=== PATIENT | female | born 1970 | race Caucasian/White ===

== ENCOUNTER 2016-11-30 19:25 | Emergency (ER) | payer SELFPAY ==
[~2016-11-30] VITALS: Ht 149.9 cm; Wt 46.3 kg
[~2016-11-30 19:25] MED LIST: ACHD5005 PO; ALPR.25T PO; ALPR0.25 PO; AMIT25TA9; ARIP2TAB3 PO; ASP81TEC PO; ASPI-266 PO; ASPI-892; ATOR10TA PO; ATOR10TA66 PO; BACL10TA PO; CLPD75T PO; DOXY100T2 PO; DULO60CA6 PO; FERR-57 PO; FLUO20CA42 PO; GABA100T PO; HDR4T PO; HYDR-229 PO; HYDR-2890 PO; HYDR-34 PO; HYDR-700 PO; HYDR1TAB PO; ISM30TCR PO; ISOS30TA7; LOVA40TA2; MEDRIN; MELO-198 PO; METH4TAB PO; METO-351 PO; METR500T PO; MTP25TSR PO; OMG1KC PO; ONDA8TAB9 PO; PNT40TEC PO; PREG300C PO; PREG50C PO; RANI150C11 PO; RANO10003 PO; ROSU20TA14 PO; ROSU40TA PO; SERT50TA PO; SMV20T PO; ZOLOFT
[2016-11-30] MEDS ORDERED: VILA1TAB2 PO (19:41)
[2016-11-30] MEDS ORDERED: BENZONATATE 100 MG (TESSALON) CAPSULE PO ONE (21:00)
--- NOTE | 2016-11-30 21:37 | Diagnostic Imaging Report ---
EXAM: AP and lateral chest at 9:20 P.m. INDICATION: Cough. FINDINGS: The heart size is within normal limits and stable when compared to 03/25/16. The lungs are clear. There is no evidence for pneumonia or for a pleural effusion. There is no sign of failure. The mediastinum is not widened. The osseous structures are intact. IMPRESSION: There is no evidence for active disease. Overall, there has been no adverse change since the prior exam. Dictated by: Dictated on workstation # [id number]
[2016-11-30] MEDS ORDERED: BENZ200C51 PO (21:42)
--- NOTE | 2016-11-30 21:42 | ED General ---
General Chief Complaint: Cough/Cold/Flu Symptoms Stated Complaint: EYE PAIN/HEADACHE/BODY ACHES/COUGH Nursing Triage Note: cough/congestion/body aches x10 days. Nursing Sepsis Screen: No Definite Risk Source of Information: Patient Exam Limitations: No Limitations History of Present Illness Time Seen by Provider: 19:51 Initial Comments This patient presents to the emergency room with complaints of flulike syndrome for more than a week with symptoms that included myalgia, headache, wheezing, eye irritation, "terrible cough", and chills. She denies fever, nausea, or vomiting. She has been taking Clare-Bruin plus and Mucinex without relief. She continues to smoke despite these problems and history of coronary artery disease. Allergies and Home Medications Allergies Uncoded Allergies: STEROIDS (Adverse Reaction, Intermediate, UNCONTROLLED BODY MOVEMENTS, ) Home Medications Benzonatate 200 Mg Capsule #20 200 MG PO TID Prescribed by: BREANA LOMAS on 11/30/162141 Vilazodone Hydrochloride 1 Each Tab.ds.pk 1 EACH PO UD (Reported) Constitutional: see HPI EENTM: see HPI Respiratory: see HPI Cardiovascular: no symptoms reported Gastrointestinal: no symptoms reported Genitourinary: no symptoms reported : No Musculoskeletal: see HPI Skin: no symptoms reported Psychiatric/Neurological: See HPI Hematologic/Lymphatic: No Symptoms Reported Past Wbvgkrh-Lhsirs-Xahvjw Hx Patient Social History Alcohol Use: Denies Use Recreational Drug Use: No Drug of Choice: Pot Smoking Status: Current Everyday Smoker Type Used: Cigarettes Recent Foreign Travel: No Contact w/Someone Who Travel: No Recent Infectious Disease Expo: No Recent Hopitalizations: No Physical Abuse Screen: No Sexual Abuse: No Immunizations Up To Date Tetanus Booster (TDap): Unknown PED Vaccines UTD: Yes Date of Pneumonia Vaccine: Jul 24, 2014 Date of Influenza Vaccine: Dec 02, 2013 Seasonal Allergies Seasonal Allergies: Yes Surgeries HX Surgeries: Yes (R ARM, C-SECTIONS X4, BACK SURGERY;CARDIAC CATH X 4/ STENTS X 2) Surgeries: Cardiac, Section, Coronary Stent, Gallbladder, Orthopedic, Tubal Ligation Respiratory Hx Respiratory Disorders: No Cardiovascular Hx Cardiac Disorders: Yes (stents placed) Cardiac Disorders: Coronary Artery Disease, High Cholesterol, Hypertension Neurological Hx Neurological Disorders: Yes Neurological Disorders: Headaches /Migraines, Neuropathy Reproductive System : No Hx Reproductive Disorders: No Sexually Transmitted Disease: No HIV/AIDS: No Female Reproductive Disorders: Pelvic Inflammatory Dis, Ovarian Cyst 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 Genitourinary Hx Genitourinary Disorders: No Gastrointestinal Hx Gastrointestinal Disorders: Yes Gastrointestinal Disorders: Gastroesophageal Reflux, Ulcer, Gall Bladder Disease Musculoskeletal Hx Musculoskeletal Disorders: Yes (PREVIOUS BACK SURGERY; BACK PAIN/LEG PAIN/ ARM PAIN) Musculoskeletal Disorders: Degenerate Disk Disease, Arthritis, Chronic Back Pain Endocrine Hx Endocrine Disorders: No HEENT HX ENT Disorders: No Loss of Vision: Denies Hearing Impairment: Denies Cancer Hx Cancer: No Psychosocial Hx Psychiatric Problems: Yes Behavioral Health Disorders: Anxiety, Suicide Attempts, Depression Integumentary HX Skin/Integumentary Disorder: No Blood Transfusions Hx Blood Disorders: No Adverse Reaction to a Blood Tr: No Family Medical History Family Medial History: Cancer 19 FATHER (Lung Cancer) Congestive heart failure 19 MOTHER G8 BROTHER Family history: Alzheimer's disease 19 FATHER (Uncle on fathers side) Family history: Cardiovascular disease Family history: Diabetes mellitus 19 MOTHER Family history: Hypertension 19 MOTHER G8 BROTHER Heart disease 19 FATHER (paternal grandfather) 19 MOTHER G8 BROTHER Myocardial infarction 19 FATHER (paternal grandfather) 19 MOTHER G8 BROTHER (40 when heart trouble started, from [place] at age 52. ) Seizure disorder 19 MOTHER (maternal aunt) Physical Exam Vital Signs Vital Sign - Last 12Hours 11/30/16 19:41 Temp 97.5 Pulse 77 Resp 18 B/P 145/78 Pulse Ox 98 O2 Delivery Room Air Capillary Refill : Less Than 3 Seconds General Appearance: No Apparent Distress WD/WN HEENT: PERRL/EOMI TMs Normal Normal ENT Inspection Pharynx Normal Neck: Normal Inspection Respiratory: Lungs Clear Normal Breath Sounds No Accessory Muscle Use No Respiratory Distress Other (No wheezing with forced expiration) Cardiovascular: Regular Rate, Rhythm No Edema No Murmur Gastrointestinal: Normal Bowel Sounds Non Tender Soft Extremity: Normal Inspection Neurologic/Psychiatric: Alert Oriented x3 No Motor/Sensory Deficits 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 Norm as Tested Skin: Normal Color Warm/Dry Progress/Results/Core Measures Results/Orders Micro Results Microbiology 11/30/16 Influenza Types A,B Antigen (ENEDINA) - Final, Complete My Orders Orders-BREANA CASTELLANOS MD Influenza A And B Antigens (11/30/16 19:51) Benzonatate Capsule (Tessalon Perles) (11/30/16 21:00) Chest Pa/Lat (2 View) (11/30/16 20:51) Medications Given in ED Current Medications Medications Dose Ordered Sig/Dannielle Route Start Time Stop Time Status Last Admin Dose Admin Benzonatate 200 mg ONCE ONCE PO 11/30/16 21:00 11/30/16 21:01 DC 11/30/16 20:54 200 MG Vital Signs/I&O Vital Sign - Last 12Hours 11/30/16 11/30/16 11/30/16 19:41 19:41 21:47 Temp 97.5 98.8 Pulse 77 80 Resp 18 16 B/P 145/78 Pulse Ox 98 96 O2 Delivery Room Air Room Air Room Air Blood Pressure Mean: 100 Progress Note : Progress Note Influenza screen was negative. Chest x-ray showed no evidence of pneumonia. Tessalon Perles were given for cough suppression. Patient was advised to discontinue smoking and seek assistance from her primary care provider in doing so. Diagnostic Imaging Diagonstic Imaging: Xray Plain Films/CT/US/NM/MRI: chest Comments Chest x-ray reviewed by me and report reviewed. See report below: NAME: TANYA GRIMM [facility] REC#: [id number] PT STATUS: DEP ER : 1970 PHYSICIAN: BREANA CASTELLANOS MD ADMIT DATE: 11/30/16/ER Signed Date of Exam: 11/30/16 CHEST PA/LAT (2 VIEW) EXAM: AP and lateral chest at 9:20 P.m. INDICATION: Cough. FINDINGS: The heart size is within normal limits and stable when compared to 03/25/16. The lungs are clear. There is no evidence for pneumonia or for a pleural effusion. There is no sign of failure. The mediastinum is not widened. The osseous structures are intact. IMPRESSION: There is no evidence for active disease. Overall, there has been no adverse change since the prior exam. Dictated by: Dictated on workstation # [id number] Dict: 11/30/162133 Trans: 11/30/162222 [facility] [id number] Interpreted by: LIDIA HAWTHORNE MD Electronically signed by:LIDIA HAWTHORNE MD 11/30/162224 Departure Impression Impression: Primary Impression: Upper respiratory infection Qualified Code: J06.9 - Acute upper respiratory infection, unspecified Additional Impression: Influenza-like symptoms Disposition: 01 HOME, SELF-CARE Condition: Improved Departure-Patient Inst. Decision time for Depature: 21:40 Referrals: [facility] (PCP) Primary Care Physician GUTIERREZ BAILEY (Family) Primary Care Physician Patient Instructions: Viral Upper Respiratory Infection, Adult (DC) Add. Discharge Instructions: You may take Tessalon Perles as prescribed for cough suppression. Stay well-hydrated. You may take Tylenol and/or ibuprofen for pain. Follow-up with your primary care provider to discuss smoking cessation. All discharge instructions reviewed with patient and/or family. Voiced understanding. Scripts Benzonatate 200 Mg [id number] Mg PO TID #20 CAP Prov:BREANA CASTELLANOS MD 11/30/16 BREANA CASTELLANOS MD Nov 30, 2016 21:42
[2016-11-30 21:47] VITALS: BP 148/98
== END 2016-11-30 21:44 | disposition home or self-care (01) ==
LOC: EDUNIT# 19:25 → ER 19:27
DX: J06.9 Acute upper respiratory infection, unspecified (principal); J10.1 Influenza due to other identified influenza virus with other respiratory manifestations; F17.210 Nicotine dependence, cigarettes, uncomplicated; Z95.5 Presence of coronary angioplasty implant and graft
CPT/HCPCS: 71020; 87804

== ENCOUNTER 2017-03-08 12:59 | Emergency (ER) | payer SELFPAY ==
[~2017-03-08] VITALS: Ht 149.9 cm; Wt 52.2 kg
[~2017-03-08 12:59] MED LIST changes: +BENZ200C51 PO; +VILA1TAB2 PO
[2017-03-08] MEDS ORDERED: NITR0.4T (14:08)
[2017-03-08] MEDS ORDERED: FISH OIL (14:08)
--- NOTE | 2017-03-08 14:08 | ED Upper Extremity ---
General Stated Complaint: RIGHT HAND PAIN Source: patient Exam Limitations: no limitations History of Present Illness Time seen by provider: 14:05 Initial Comments To ER with reports of pain to the base of the thumb and the right pointer finger been present for 3 weeks without injury. She awakened one morning with this. She has not seen her primary care provider for this. No history of this. Severity: moderate Pain/Injury Location: right thumb, right 2nd finger Modifying Factors: Worse With Movement Allergies and Home Medications Allergies Uncoded Allergies: STEROIDS (Adverse Reaction, Intermediate, UNCONTROLLED BODY MOVEMENTS, ) Home Medications Benzonatate 200 Mg Capsule, 200 MG PO TID, #20 Prescribed by: BREANA LOMAS on 11/30/162141 Vilazodone Hydrochloride 1 Each Tab.ds.pk, 1 EACH PO UD, (Reported) Constitutional: see HPI EENTM: see HPI Respiratory: no symptoms reported Cardiovascular: no symptoms reported Genitourinary: no symptoms reported Musculoskeletal: see HPI Skin: no symptoms reported Psychiatric/Neurological: No Symptoms Reported Past Wdioohu-Tjkorl-Qqnuaw Hx Patient Social History Drug of Choice: Pot Type Used: Cigarettes Recent Foreign Travel: No Contact w/Someone Who Travel: No Recent Hopitalizations: No Immunizations Up To Date Tetanus Booster (TDap): Unknown PED Vaccines UTD: Yes Date of Pneumonia Vaccine: Jul 24, 2014 Date of Influenza Vaccine: Dec 02, 2013 Seasonal Allergies Seasonal Allergies: Yes Surgeries HX Surgeries: Yes (R ARM, C-SECTIONS X4, BACK SURGERY;CARDIAC CATH X 4/ STENTS X 2) Surgeries: Cardiac, Section, Coronary Stent, Gallbladder, Orthopedic, Tubal Ligation Respiratory Hx Respiratory Disorders: No Cardiovascular Hx Cardiac Disorders: Yes (stents placed) Cardiac Disorders: Coronary Artery Disease, High Cholesterol, Hypertension Neurological Hx Neurological Disorders: Yes Neurological Disorders: Headaches /Migraines, Neuropathy Reproductive System Hx Reproductive Disorders: No Sexually Transmitted Disease: No HIV/AIDS: No Female Reproductive Disorders: Pelvic Inflammatory Dis, 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 Genitourinary Hx Genitourinary Disorders: No Gastrointestinal Hx Gastrointestinal Disorders: Yes Gastrointestinal Disorders: Gastroesophageal Reflux, Ulcer, Gall Bladder Disease Musculoskeletal Hx Musculoskeletal Disorders: Yes (PREVIOUS BACK SURGERY; BACK PAIN/LEG PAIN/ ARM PAIN) Musculoskeletal Disorders: Degenerate Disk Disease, Arthritis, Chronic Back Pain Endocrine Hx Endocrine Disorders: No HEENT HX ENT Disorders: No Loss of Vision: Denies Hearing Impairment: Denies Cancer Hx Cancer: No Psychosocial Hx Psychiatric Problems: Yes Behavioral Health Disorders: Anxiety, Suicide Attempts, Depression Integumentary HX Skin/Integumentary Disorder: No Blood Transfusions Hx Blood Disorders: No Adverse Reaction to a Blood Tr: No Family Medical History Family Medial History: Cancer 19 FATHER (Lung Cancer) Congestive heart failure 19 MOTHER G8 BROTHER Family history: Alzheimer's disease 19 FATHER (Uncle on fathers side) Family history: Cardiovascular disease Family history: Diabetes mellitus 19 MOTHER Family history: Hypertension 19 MOTHER G8 BROTHER Heart disease 19 FATHER (paternal grandfather) 19 MOTHER G8 BROTHER Myocardial infarction 19 FATHER (paternal grandfather) 19 MOTHER G8 BROTHER (40 when heart trouble started, from [place] at age 52. ) Seizure disorder 19 MOTHER (maternal aunt) Physical Exam Vital Signs Capillary Refill : General Appearance: WD/WN, no apparent distress HEENT: PERRL/EOMI, normal ENT inspection Neck: non-tender, full range of motion Respiratory: no respiratory distress, no accessory muscle use Gastrointestinal: normal bowel sounds, non tender, soft Elbow/Forearm: normal inspection, non-tender, Right Wrist: Yes normal inspection, Yes non-tender Hand: Right, swelling (she has full range of motion but pain is worsened by pinching the thumb and right pointer finger together. This pain is over the thenar eminence.) Neurologic/Psychiatric: alert, normal mood/affect, oriented x 3 Skin: normal color, warm/dry Progress/Results/Core Measures Results/Orders My Orders Orders - DANAY SUAZO APRN Hand, Right, 3 Views (03/08/17 14:04) Departure Impression Impression: Primary Impression: PAIN IN RIGHT HAND Disposition: 01 HOME, SELF-CARE Condition: Stable Departure-Patient Inst. Decision time for Depature: 14:07 Referrals: DAQUAN ROPER MD [facility] (PCP/Family) Primary Care Physician RIKI FONTANA MD,FAROQO MARTINEZ MD,JUAN SAMUEL MD Patient Instructions: NO INSTRUCTIONS GIVEN Add. Discharge Instructions: 1. Follow-up with one of the orthopedic surgeons in the next 2 weeks to further evaluate the cause of your hand pain does not get better 2. Return to ER for any concerns 3. DANAY SUAZO APRN Mar 08, 2017 14:08
[2017-03-08] MEDS ORDERED: ASPRIN (14:09)
[2017-03-08] MEDS ORDERED: BLOOD PRESSURE (14:13)
--- NOTE | 2017-03-08 14:33 | Diagnostic Imaging Report ---
EXAM: 3 views of the right hand. INDICATION: Right thumb pain. FINDINGS: No fracture, dislocation or radiopaque foreign body. Joint alignment is satisfactory. IMPRESSION: Unremarkable exam. Dictated by: Dictated on workstation # [id number]
[2017-03-08] MEDS ORDERED: NAPR550T PO (14:37)
[2017-03-08 14:46] VITALS: BP 122/83
== END 2017-03-08 14:46 | disposition home or self-care (01) ==
LOC: EDUNIT# 12:59 → ER 13:01
DX: M79.641 Pain in right hand (principal); I10 Essential (primary) hypertension; I25.10 Atherosclerotic heart disease of native coronary artery without angina pectoris; Z95.5 Presence of coronary angioplasty implant and graft
CPT/HCPCS: 73130; 99285

== ENCOUNTER 2020-05-29 13:45 | Outpatient (RCR) | payer MEDICARE ==
[~2020-05-29] VITALS: Ht 149.9 cm; Wt 47.7 kg
[~2020-05-29 13:45] MED LIST changes: +ASPRIN; +BLOOD PRESSURE; +FISH OIL; +NAPR-1070 PO; +NITR0.4T
[2020-05-29] MEDS ORDERED: DIVA500T15 PO (13:59)
[2020-05-29] MEDS ORDERED: ONDN4T PO (13:59)
[2020-05-29] MEDS ORDERED: GBPN600T PO (13:59)
== END 2020-05-29 14:15 | disposition home or self-care (01) ==
LOC: PREOP 13:45
PROVIDERS: ATTEND Specialist
DX: Z01.812 Encounter for preprocedural laboratory examination (principal); H26.9 Unspecified cataract; Z20.828 Contact with and (suspected) exposure to other viral communicable diseases
CPT/HCPCS: 87635

== ENCOUNTER 2020-05-31 07:22 | Day surgery (SDC) | payer MEDICARE, MEDICAID ==
[~2020-05-31] VITALS: Ht 149.9 cm; Wt 47.7 kg
[~2020-05-31 07:22] MED LIST changes: +DIVA500T15 PO; +GBPN600T PO; +ONDN4T PO
[2020-05-31] MEDS ORDERED: LIDOCAINE PF 1% 2 ML VIAL IR PRN (07:30)
[2020-05-31] MEDS ORDERED: TIMOLOL MALEATE 0.5% 5 ML (TIMOPTIC) BTL OU PRN (07:30)
[2020-05-31] MEDS ORDERED: MOXIFLOXACIN OPHTH SOLN 5 MG/ML 0.3 ML SYRINGE OP ONE (07:30)
[2020-05-31] MEDS ORDERED: POVIDONE (BETADINE) OPHTH SOLN 5% 30 ML OP ONE (07:30)
[2020-05-31 07:40] VITALS: BP 123/76
[2020-05-31] MEDS: TETRACAINE 0.5% OPHTH SOLN 4 ML BTL (SINGLE DOSE ONLY) OU PRN ×4 (08:03→08:22)
[2020-05-31] MEDS: CYCLOPENTOLATE 1% (CYCLOGYL) 2 ML DROPS OP SCH ×3 (08:10→08:22)
[2020-05-31] MEDS: PHENYLEPHRINE 10% OPHTH (NEO-SYN) 5 ML BTL OU SCH ×3 (08:10→08:22)
--- NOTE | 2020-05-31 08:50 | Ophthalmologist Pre-Op Note ---
Pre-Operative Progress Note H&P Reviewed The H&P was reviewed, patient examined and no changes noted. Date H&P Reviewed: May 31, 2020 Time H&P Reviewed: 08:50 Pre-Op Dx Cataract, Right Eye SANDY GOLDMAN MD May 31, 2020 08:50
[2020-05-31] MEDS ORDERED: MIDAZOLAM 2 MG/2 ML (VERSED) VIAL ONE (08:52)
[2020-05-31] MEDS ORDERED: acetaZOLAMIDE ER 500 MG CAP (DIAMOX SEQUELS) PO ONE (09:00)
--- NOTE | 2020-05-31 09:22 | Ophthalmology Operative Report ---
Cataract removal/placement IOL PREOPERATIVE DIAGNOSIS: Cataract Right Eye POSTOPERATIVE DIAGNOSIS: Cataract Right Eye PROCEDURE: Cataract removal and placement of posterior chamber implant, right eye SURGEON: Madan Goldman ANESTHESIA: Topical with sedation COMPLICATIONS: None ESTIMATED BLOOD LOSS: Minimal DESCRIPTION OF PROCEDURE: After proper informed consent was obtained, the patient, a 50 female, was taken to the Operating Room and the right eye was anesthetized with tetracaine. The right eye was then prepped and draped in the usual manner. A wire lid speculum was placed. A paracentesis was made at the left hand position. Preservative free lidocaine was injected into the anterior chamber followed by viscoelastic. A clear corneal incision was made in the temporal position. A capsulorrhexis was preformed and the central nuclear and cortical material were removed. The posterior capsule was polished and Evan 14.0 AU00T0 IOL was placed into the capsular bag. The residual viscoelastic was aspirated and balanced saline solution was injected into the anterior chamber. Moxifloxacin was injected into the anterior chamber. The wound was checked and found to be water tight. The patient tolerated the procedure well without complications. MADAN GOLDMAN MD May 31, 2020 09:22
[2020-05-31 09:30] VITALS: BP 117/98
--- OUTSIDE RECORDS SUMMARY | 2020-05-31 11:38 | XMS REPORT ---
Author Author arviem AG embroiderer hand [facility] [place] [facility] [employer] Address [address] [address] Care Team Providers Care Occupational Medicine Specialist Name Role Phone GUTIERREZ BAILEY Unavailable Unavailable BAILEY GUTIERREZ Unavailable GUTIERREZ BAILEY ROLL OVER LOADER Unavailable [facility] Unavailable [phone] NIKA WOLFF Unavailable Unavailable OLEG CHAMBERS Unavailable Unavailable ALL ANGEL Unavailable Unavailable [facility] Unavailable [phone] JASON HAQ Unavailable Unavailable [facility] Unavailable NIKA WOLFF ROLL OVER LOADER Unavailable BAILEY, GUTIERREZ Unavailable BAILEY, GUTIERREZ Unavailable BAILEY, GUTIERREZ Unavailable BAILEY, GUTIERREZ Unavailable PETRA HawkNETTE Unavailable ARNAUD HawkE Unavailable BIBIANA JONES Unavailable BIBIANA JONES Unavailable BIBIANA JONES Unavailable BIBIANA JONES Unavailable BRYAN YORK Unavailable DANAY SUAZO APRN Unavailable Unavailable JASMIN WAGGONER, BREANA Caraballo Unavailable Unavailable Migration, Doctor Unavailable Unavailable Migration, Doctor Unavailable Unavailable Migration, Doctor Unavailable Unavailable Migration, Doctor Unavailable Unavailable Migration, Doctor Unavailable Unavailable Migration, Doctor Unavailable Unavailable Migration, Doctor Unavailable Unavailable Migration, Doctor Unavailable Unavailable Migration, Doctor Unavailable Unavailable CARISSA WAGGONER, MARIE Bello Unavailable Unavailable CARISSA WAGGONER, MARIE Bello Unavailable Unavailable MEGAN SALDAÑA Unavailable Unavailable BART WEST MD Unavailable Unavailable SHIMON WAGGONER, BOB Alonzo Unavailable Unavailable BART WEST MD Unavailable Unavailable ARCHIE WAGGONER, XOCHITL Barry Unavailable Unavailable DANILO WAGGONER, MARÍA Sanchez Unavailable Unavailable LINSEY CAMARGO, RHODA Perez Unavailable Unavailable BELLA WAGGONER, MILTON Sanchez Unavailable Unavailable OLIVIER VILLALBA Unavailable Unavailab BART Rutledge MD Unavailable Unavailable MARIELLA, NIKA ROLL OVER LOADER Unavailable Unavailable GIANNI SRINIVASAN ROLL OVER LOADER Unavailable Unavailable JOSÉ MIGUEL DO, AJAY K Unavailable Unavailable Migration, Doctor Unavailable Unavailable Migration, Doctor Unavailable Unavailable Migration, Doctor Unavailable Unavailable MARIELLA, NIKA Unavailable MARIELLA, NIKA Unavailable BIBIANA JONES Unavailable MARIELLA, NIKA Unavailable MARIELLA, NIKA Unavailable MARIELLA, NIKA Unavailable Migration, Doctor Unavailable Unavailable zzHEIMAN, CHANELLE Unavailable zzHEIMAN, CHANELLE Unavailable MARIELLA, NIKA Unavailable MARIELLA, NIKA Unavailable MARIELLA, NIKA Unavailable MARIELLA, NIKA Unavailable MARIELLA, NIKA Unavailable MARIELLA, NIKA Unavailable GARIMA VANG Unavailable Unavailable PAONI, ALEJO Unavailable Unavailable PAONI, ALEJO Unavailable Unavailable FRIEDMAN, REBECCA Unavailable Unavailable FRIEDMAN, REBECCA Unavailable Unavailable FRIEDMAN, REBECCA Unavailable Unavailable LANDA, PRAKASH Unavailable Unavailable LANDA, PRAKASH Unavailable Unavailable LANDA, PRAKASH Unavailable Unavailable MARIELLA, NIKA Unavailable MARIELLA, NIKA Unavailable MARIELLA, NIKA Unavailable MARIELLA, NIKA Unavailable MARIELLA, NIKA Unavailable MARIELLA, NIKA Unavailable MARIELLA, NIKA Unavailable Migration, Doctor Unavailable Unavailable MARIELLA, NIKA Unavailable MARIELLA, NIKA Unavailable MARIELLA, NIKA Unavailable MARIELLA, NIKA Unavailable MARIELLA, NIKA Unavailable MARIELLA, NIKA Unavailable Migration, Doctor Unavailable Unavailable JANY Gonzalez Unavailable SUSI WAGGONER, SANDY Barry Unavailable Unavailable Unavailable Unavailable Unavailable Unavailable Unavailable Unavailable Unavailable Unavailable Unavailable Unavailable Unavailable Unavailable Allergies The data below is from unstructured sourcesNo Known Allergies No Known Allergies No Known Allergies No Known Allergies No Known Allergies No Known Allergies No Known Allergies No Known Allergies No Known Allergies No Known Allergies No Known Allergies No Known Allergies No Known Allergies Unknown Allergies Unknown Allergies No Information No Information No Information No Information No Information No Information No Information No Information No Information No Information No Information No Information No Information No Information No Information No Information No Information No Information No Information No Information No Information No Information No Information No Information No Information No Information No Information No Information No Information No Information No Information No Information No Information No Information No Information No Information No Information No Information No Information No Information No Information No Information No Information No Information No Information No Information No Information No Information No Information No Information Encounters Encounter Date Encounter Type Encounter Diagnosis Care Provider Facility Start: Patient encounter SANDY GOLDMAN MD [facility] 05-31-[address] [facility] Start: Patient encounter SANDY GOLDMAN MD [facility] 05-29-[address] [facility] End: 05-29-2020 Start: [facility] 01-17-2020 Start: Patient encounter [facility] strict #1 01-12-2020 procedure of [facility] End: 01-12-2020 Start: Patient encounter [facility] strict #1 01-11-2020 procedure [facility] End: 01-11-2020 Start: Patient encounter [facility] strict #1 10-26-2019 procedure of [facility] ([id number]) End: 10-26-2019 Start: Patient encounter [facility] strict #1 10-11-2019 procedure of [facility] ([id number]) End: 10-11-2019 Start: Patient encounter [facility] strict #1 10-10-2019 procedure of [facility] ([id number]) End: 10-10-2019 Start: Patient encounter [facility] strict #1 10-05-2019 procedure of [facility] ([id number]) End: 10-05-2019 Start: Patient encounter [facility] strict #1 09-26-2019 procedure of [facility] ([id number]) End: 09-26-2019 Start: Patient encounter 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 01-11-2019 Start: [facility] Essential (primary) BRYAN YORK [facility] 09-16-2018 hypertension End: 09-16-2018 Start: Telephone encounter Mixed hyperlipidemia BIBIANA MOODY [facility] 06-07-2018 End: 06-07-2018 Start: Patient encounter 04-01-2018 procedure Start: Patient encounter BIBIANA JONES [facility] 01-05-2018 procedure [facility] ([id number]) Start: Patient encounter BIBIANA JONES [facility] 01-03-2018 procedure [facility] ([id number]) Start: Patient encounter 11-03-2017 procedure End: 11-03-2017 Start: Patient encounter KRISTOFER FRANKLIN Not Availab le ([id number]) 10-18-2017 procedure End: 10-18-2017 Start: Patient encounter DANAY SUAZO Not Availab le ([id number]) 03-08-2017 procedure Start: Emergency department BREANA CASTELLANOS MD N ot Available ([id number]) 11-30-2016 patient visit End: 11-30-2016 Start: Patient encounter BREANA CASTELLANOS MD Not Available ([id number]) 11-30-2016 procedure Start: Patient encounter MARIE FERRER MD Not Avail able ([id number]) 10-11-2016 procedure End: 10-11-2016 Start: Patient encounter BART WEST MD Not Availa ble ([id number]) 06-27-2015 procedure Start: Evaluation and BART WEST MD Not Available ([id number]) 09-06-2014 management of inpatient End: 09-07-2014 Start: Patient encounter OLIVIER Not Availab le ([id number]) 06-27-2014 procedure ZHANE ALVAREZ Start: Patient encounter BART WEST MD Not Availa ble ([id number]) 03-26-2014 procedure Start: Evaluation and BART WEST MD Not Available ([id number]) 03-23-2014 management of inpatient End: 03-24-2014 Start: Emergency department MEGAN ALVAREZ Not Available ([id number]) 12-02-2013 patient visit End: 12-02-2013 Start: Patient encounter BART WEST MD Not Availa ble ([id number]) 12-01-2013 procedure End: 12-02-2013 Start: Patient encounter MARÍA CARRASCO MD Not Avai lable ([id number]) 02-22-2013 procedure End: 02-22-2013 Start: Patient encounter MARÍA CARRASCO MD Not Avai lable ([id number]) 02-16-2013 procedure Start: Patient encounter XOCHITL ALMANZA MD Not Avai lable ([id number]) 01-23-2013 procedure Start: Emergency department BOB ROBINS MD Not Av ailable ([id number]) 12-29-2012 patient visit End: 12-29-2012 Start: Patient encounter MILTON BLANCO MD Not A vailable ([id number]) 12-14-2012 procedure Start: Patient encounter RHODA STILES DO Not Availa ble ([id number]) 01-13-2012 procedure Start: Patient encounter XOCHITL ALMANZA MD Not Avai lable ([id number]) 10-22-2011 procedure Start: Patient encounter GIANNI SRINIVASAN Not Availab le ([id number]) 10-01-2011 procedure Start: Patient encounter XOCHITL ALMANZA MD Not Avai lable ([id number]) 09-24-2011 procedure Patient encounter NA NA [facility] procedure [facility] ([id number]) Pre-procedural MARÍA CARRASCO MD Not Available (0000 0) laboratory examination Encounter for SANDY GOLDMAN MD [facility] ([id number]) examination Medical Equipment No Information Goals No Information Immunizations Immunizatio Immunization Notes Care Provider Facility n Date 01-11-2019 influenza, seasonal, NA NA [facility] injectable [facility] ([id number]) 04-01-2018 DEPO MEDROL 80 MG/ML ; BIBIANA JONES [facility] Translations: [DEPO Other Phone: [facility] MEDROL 80 MG/ML] [place] ([id number]) Interventions No Information Medications Current Medications Medication Drug Dates Sig Sig (Original) Class(es) (Normalized) Acetaminophen / Start: take 2 capsules Midrin 65-10 0-325 mg 2 Capsule by Oral dichloralphenazone / 11-01-2014 by mouth once route 1 time per day PRN with onset of isometheptene daily as needed headache and then 1 every hour. (see (1 source) for headache, note) Oct, Active then take 1 capsule by mouth every hour as needed for headache Fish Oil Concentrate Start: Fish Oil Concent rate 1000 mg Nov, 1000 mg [id number] Active (1 source) lurasidone hydrochloride Atypical Start: take 1 tablet Latuda 20 mg 1 Tablet by Oral route 1 20 mg oral tablet Antipsycho 02-04-2015 by mouth once time p er day Jan, Active (1 source) tic daily Completed/Discontinued Medications Medication Drug Dates Sig Sig (Original) Class(es) (Normalized) Acetaminophen Start: (1 source) 09-07-2019 End: 09-07-2019 KETOROLAC VIAL INJ 30 Start: MG/CC (TORADOL VIAL) 09-07-2019 (1 source) End: 09-07-2019 Orphenadrine Muscle Start: (1 source) Relaxant 09-07-2019 End: 09-07-2019 Payers Date Payer Normalized Payer Policy ID MEDICARE MEDIC[facility] [employer]ET[employer] MEDICAID Plan of Treatment The data below is from unstructured sources Discharge Date 10/11/16 3:00pm Disposition 01 HOME, SELF-CARE Instructions/Education Provided Acut e Abdomen (Belly Pain), Adult (DC) Forms Provided Follow-Up Fax Prescriptions See Medication Section Referrals MARIE FERRER MD (Unspec ified) - Address: [address] [place] [address] [phone] Reason(s) for Referral: FOLLOW UP WITH [facility] THIS W[facility] Care Plan and Goals See Discharge In structions Section Discharge Date 09/07/14 2:25pm Disposition 01 HOME, SELF-CARE Instructions/Education Provided 2 Gr am Sodium Diet (DC) Forms Provided PDI Medical Prescriptions See Medications Sectio n Care Plan and Goals appointment with Dr. West's office next week Appointment with [facility] Activity Details Follow Up 3 Months Reason:anxiety Activity Details Follow Up 2 Months Reason: Activity Details Follow Up 4 Months Reason: Activity Details Follow Up 4 Weeks, prn Reason:Follow up with PCP Problems Active Problems Problem Problem Date Last Documented Episodic/Chr Provider Classificati Recorded Date onic on Cataract Unspecified cataract 05-30-2020 Chronic SANDY (1 source) SUSI WAGGONER Diabetes Diabetes mellitus without mention Chronic BASCAROLA WEST mellitus of complication, type II or MD without unspecified type, not state d as complication uncontrolled (6 sources) Esophageal Gastro-esophageal reflux disease Chronic MARIE disorders without esophagitis CARISSA WAGGONER (3 sources) Nonmalignant Diffuse cystic mastopathy ; Chronic NIKA breast Translations: [LUMP OR MASS IN BREN NAN conditions BREAST] (6 sources) Other Chronic pain syndrome ; Chronic Doct or nervous Translations: [ - 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] disorders (20 sources) Other Chronic pain syndrome ; Chronic Doct or nervous Translations: [Chronic pain Migrati on system syndrome] disorders (20 sources) Other Polyneuropathy, unspecified Chronic STORMY nervous TAJ system disorders (1 source) Other 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 (1 source) Other Chronic pain syndrome Chronic REBECCA nervous FRIEDMAN system disorders (8 sources) Past or Other Problems Problem Problem Date Last Documented Episodic/Chr Provider Classificati Recorded Date onic on Coronary Presence of coronary angioplasty Episodic BASCAROLA WEST atherosclero implant and graft ; Translations: M D sis and [Percutaneous transluminal coronary other heart angioplasty status] disease (8 sources) E Codes: Other accidental fall from one Episodic BASCAROLA WEST Fall level to another ; Translations: (4 sources) [Unspecified fall] E Codes: Overexertion from sudden strenuous DANAY SUAZO Overexertion movement (2 sources) E Codes: Home accidents Episodic BART WEST Place of MD occurrence (4 sources) E Codes: Other external cause status Episodic PETER SUAZO Unspecified (2 sources) Influenza Influenza due to other identified Episodic BREANA (2 sources) influenza virus with other BRUEGGEM CATARINO respiratory manifestations Other Long-term (current) use of other Episodic MARÍA aftercare medications DANILO WAGGONER (4 sources) Other Pain in right hand Episodic PETER BAT ES connective tissue disease (6 sources) Other Abdominal or pelvic swelling, mass, Episodic MEGAN gastrointest or lump, unspecified site KVNG PA inal disorders (2 sources) Other Knee, leg, ankle, and foot injury Episodic PETER SUAZO injuries and conditions due to external causes (2 sources) Other Head injury, unspecified Episodic BAS CAROLA ALINE injuries and MD conditions due to external causes (2 sources) Other lower Cough Episodic BREANA respiratory BRUEGGEMANN disease (2 sources) Other Pain in joint, other specified Episodic XOCHITL non-traumati sites ARCHIE fletcher joint disorders (1 source) Ovarian cyst Other and unspecified ovarian cyst Episodic MILTON (6 sources) ; Translations: [Follicular cyst of BELLA WAGGONER ovary] Residual Family history of other Episodic BASH AR ALINE codes; cardiovascular diseases unclassified (2 sources) Residual Family history of ischemic heart Episodic BASHAR ALINE codes; disease unclassified (4 sources) Procedures Date Procedure Procedure Detail Performing Cl inician Start: Collection venous BIBIANA JONES 04-01-2018 blood venipuncture Other Start: LAB NOT BILLED BY BIBIANA JONES 04-01-2018 [facility] Other Phone: Start: Methylprednisolone BIBIANA JONES 04-01-2018 80 MG inj Other Phone: Start: Therapeutic BIBIANA JONES 04-01-2018 prophylactic/dx Other Phone: injection subq/im Start: Blood count NIKA WOLFF 01-10-2015 complete auto&auto Other difrntl wbc Start: Collection venous NIKA WOLFF 01-10-2015 blood venipuncture Other Start: Comprehensive NIKA WOLFF 01-10-2015 metabolic panel Other Phone: Start: Cytp c/v auto thin CHANELLE Narvaez 08-02-2014 lyr prepj scr mnl Other Phone: rescr phys Start: Obtaining screen CHANELLE Narvaez 08-02-2014 pap smear Other Phone: Start: Assay of ferritin NIKA MARIELLA 05-17-2014 Other Start: Blood count NIKA MARIELLA 05-17-2014 complete auto&auto Other difrntl wbc Start: Collection venous NIKA MARIELLA 05-17-2014 blood venipuncture Other Start: Sedimentation rate NIKA MARIELLA 05-17-2014 rbc non-automated Other Phone: Start: Blood count NIKA MARIELLA 04-09-2014 complete auto&auto Other difrntl wbc Start: Blood count NIKA MARIELLA 04-09-2014 reticulocyte Other Phone: automated Start: Chest x-ray NIKA MARIELLA 04-09-2014 Other Start: Collection venous NIKA MARIELLA 04-09-2014 blood venipuncture Other Start: Sedimentation rate NIKA MARIELLA 04-09-2014 rbc non-automated Other Phone: Results Test Name Value Interpreta Reference Facilit Date tion Range y Time laboratory on 2020-05-28 Coronavirus Ab Qn Negative Invalid Negative PENDING 05-28 (S) Interpreta LOCATIO 020 tion Code N KHS 04:10-0 ([id number]) 400 laboratory on 2019-10-30 Protein Fractions Comment Invalid [facility] [Interp] Interpreta ([id number]) 019 tion Code 13:18-0 500 laboratory on 2019-10-27 Nuclear Ab Ql (S) Negative Invalid Negative [facility] 10-27 Interpreta ([id number]) 019 tion Code 09:31-0 500 not yet categorized on 2019-10-26 NIDHI DIRECT Negative Invalid NEGATIVE Hospita Interpreta l 019 tion Code Distric 08:22-0 t #1 of [facility] ([id number]) IMMUNOFIXATION AN APPARENT NORMAL IMMUNOFIXATION PATTERN. Invali d [facility] RESULT, SERUM Interpreta l 019 tion Code Distric 08:22-[address] t [address] [place] [address] ([id number]) IMMUNOGLOBULIN A, 226 Invalid 87-352 Hospita 10-26 QN, SERUM Interpreta MG/DL l 019 tion Code Distric 08:22-0 t [address] [place] [address] ([id number]) IMMUNOGLOBULIN G, 803 Invalid 700-[facility] 10-26 QN, SERUM Interpreta MG/DL l 019 tion Code Distric 08:22-0 t [address] [place] [address] ([id number]) IMMUNOGLOBULIN M, 26 Invalid 26-217 Hospita 10-26 QN, SERUM Interpreta MG/DL l 019 tion Code Distric 08:22-0 t [address] [place] [address] ([id number]) laboratory on 2019-10-26 Cobalamin (Vitamin 343.00 pg/mL Invalid 213.00-816 [facility] B12) [Mass/Vol] Interpreta .00 pg/mL l 019 tion Code Distric 08:22-0 t [address] [place] [address] ([id number]) Folate (Bld) 5.40 Low 7.00-31.40 [facility] [Mass/Vol] ng/mL l 019 Distric 08:22-0 t [address] [place] [address] (36251) IgA [Mass/Vol] 226 mg/dL Invalid 87-352 [facility] Interpreta mg/dL ([id number]) 019 tion Code 19:40-0 500 IgG [Mass/Vol] 803 mg/dL Invalid 700-1600 [facility] Interpreta mg/dL (93772) 019 tion Code 19:40-0 500 IgM [Mass/Vol] 26 mg/dL Invalid 26-217 [facility] Interpreta mg/dL (07897) 019 tion Code 19:40-0 500 not yet categorized on 2019-09-25 HIV 1/2 Haleigh Non-Reactive Invalid Non-Reacti [facility] Interpreta ve l 019 tion Code Distric 07:20-0 t [address] [place] [address] ([id number]) HIV-1 p24 Ag Non-Reactive Invalid Non-Reacti Hospita Interpreta ve l 019 tion Code Distric 07:20-0 t [address] [place] [address] ([id number]) laboratory on 2019-09-25 Albumin BCG dye 4.4 Invalid 3.6-5.1 Hospita [Mass/Vol] Interpreta g/dL l 019 tion Code Distric 07:20-0 t [address] [place] [address] ([id number]) ALP [Catalytic 83 U/L Invalid 35-130 U/L Hospita activity/Vol] Interpreta l 019 tion Code Distric 07:20-0 t [address] [place] [address] ([id number]) ALT [Catalytic 16 U/L Invalid 6-45 U/L Hospita activity/Vol] Interpreta l 019 tion Code Distric 07:20-0 t [address] [place] [address] ([id number]) Anion gap 14 mmol/L Invalid 6-14 Hospita [Moles/Vol] Interpreta l 019 tion Code Distric 07:20-0 t [address] [place] [address] ([id number]) AST [Catalytic 20 U/L Invalid 2-40 U/L Hospita activity/Vol] Interpreta l 019 tion Code Distric 07:20-[address] t [address] [place] [address] ([id number]) Basophils (Bld) 0.0 10*3/uL Invalid 0.0-0.2 [facility] [#/Vol] Interpreta K/uL l 019 tion Code Distric 07:20-0 t [address] [place] [address] ([id number]) Basophils/100 WBC 0.20 % Invalid 0.00-2.50 Hospita 09-25 (Bld) Interpreta % l 019 tion Code Distric 07:20-0 t [address] [place] [address] ([id number]) Bilirubin [Mass/Vol] 0.7 mg/dL Invalid 0.2-1.2 Hospita Interpreta mg/dL l 019 tion Code Distric 07:20-0 t [address] [place] [address] ([id number]) Calcium [Mass/Vol] 9.6 mg/dL Invalid 8.3-10.4 Hospita 11-0 4-2 Interpreta mg/dL l 019 tion Code Distric 07:20-0 t #1 of 500 [facility] (62802) Chloride [Moles/Vol] 107 mmol/L Invalid 95-114 Hospita 1 Interpreta mmol/L l 019 tion Code Distric 07:20-0 t #1 of 500 [facility] (93206) Creatinine 0.87 mg/dL Invalid 0.50-1.50 Hospita [Mass/Vol] Interpreta mg/dL l 019 tion Code Distric 07:20-0 t [address] [place] [address] () Eosinophils (Bld) 0.1 10*3/uL Invalid 0.0-0.7 Hospita 02-21 [#/Vol] Interpreta K/uL l 019 tion Code Distric 07:20-0 t [address] [place] [address] () Eosinophils/100 WBC 0.6 % Invalid 0.0-7.0 % Hospita 02-21 (Bld) Interpreta l 019 tion Code Distric 07:20-0 t [address] [place] [address] () Erythrocyte 11.6 % Invalid 11.6-14.8 Hospita distribution width Interpreta % l 019 (RBC) [Ratio] tion Code Distric 07:20-0 t [address] [place] [address] () ESR (Bld) [Velocity] 17 mm/h High 9-15 mm/hr Hospita l 019 Distric 07:20-0 t [address] [place] [address] () GFR/1.73 sq 69 mL/min/{1.73_m2} Invalid >59 Hospita 1 M.predicted MDRD Interpreta mL/min/1.7 l 019 (S/P/Bld) [Vol tion Code 3m2 Distric 07:20-0 rate/Area] t [address] [place] [address] () Globulin (S) 2.3 g/dL Invalid 2.3-3.5 Hospita [Mass/Vol] Interpreta g/dL l 019 tion Code Distric 07:20-0 t [address] [place] [address] ([id number]) Glucose [Mass/Vol] 96 mg/dL Invalid 70-110 Hospita 11 4-2 Interpreta mg/dL l 019 tion Code Distric 07:20-0 t #1 of 500 [facility] () HCO3 (P) [Moles/Vol] 23 Invalid 22-33 [facility] mEq/L l 019 tion Code Distric 07:20-0 t #1 of 500 [facility] () Hematocrit (Bld) 37.5 % Invalid 36.0-46.0 [facility] [Volume fraction] Interpreta % l 019 tion Code Distric 07:20-0 t #1 of 500 [facility] () Hemoglobin (Bld) 12.9 g/dL Low 13.0-15.0 Hospita [Mass/Vol] g/dL l 019 Distric 07:20-0 t #1 of 500 [facility] () Lymphocytes (Bld) 2.97 10*3/uL Invalid 0.60-3.40 [facility] [#/Vol] Interpreta K/uL l 019 tion Code Distric 07:20-0 t #1 of 500 [facility] () Lymphocytes/100 WBC 29.4 % Invalid 10.0-50.0 [facility] 02-21 (Bld) Interpreta % l 019 tion Code Distric 07:20-0 t [address] [place] [address] () M. pneumoniae Ab Ql Negative Invalid Negative [facility] 02-21 (S) Interpreta l 019 tion Code Distric 07:20-0 t [address] [place] [address] () MCH (RBC) [Entitic 33.9 pg High 27.0-31.0 Hospita 4-2 mass] pg l 019 Distric 07:20-0 t [address] [place] [address] () MCHC (RBC) 34.4 g/dL Invalid 32.0-36.0 [facility] [Mass/Vol] Interpreta g/dL l 019 tion Code Distric 07:20-0 t #1 of 500 [facility] () MCV (RBC) [Entitic 98.4 fL High 80.0-97.0 Hospita 11-0 4-2 vol] fL l 019 Distric 07:20-0 t #1 of 500 [facility] ([id number]) Monocytes (Bld) 0.6 10*3/uL Invalid 0.0-0.9 Hospita 09-25 [#/Vol] Interpreta K/uL l 019 tion Code Distric 07:20-0 t #1 of 500 [facility] ([id number]) Monocytes/100 WBC 5.9 % Invalid 0.0-12.0 % Hospita 11-0 4-2 (Bld) Interpreta l 019 tion Code Distric 07:20-0 t #1 of 500 [facility] ([id number]) Neutrophils (Bld) 6.46 10*3/uL Invalid 2.00-6.90 Hospita [#/Vol] Interpreta K/uL l 019 tion Code Distric 07:20-0 t #1 of 500 [facility] ([id number]) Neutrophils/100 WBC 63.9 % Invalid 37.0-80.0 Hospita 02-21 (Bld) Interpreta % l 019 tion Code Distric 07:20-0 t #1 of 500 [facility] ([id number]) Osmolality Calc 290 Invalid 280-295 Hospita [Osmolality] Interpreta l 019 tion Code Distric 07:20-0 t #1 of 500 [facility] ([id number]) Platelet mean volume 12.7 fL High 7.4-10.0 Hospita (Bld) [Entitic vol] fL l 019 Distric 07:20-0 t #1 of 500 [facility] ([id number]) Platelets (Bld) 202 10*3/uL Invalid 150-400 Hospita 09-25 [#/Vol] Interpreta K/uL l 019 tion Code Distric 07:20-0 t #1 of 500 [facility] ([id number]) Potassium 4.3 mmol/L Invalid 3.5-5.3 Hospita [Moles/Vol] Interpreta mmol/L l 019 tion Code Distric 07:20-0 t #1 of 500 [facility] ([id number]) Protein [Mass/Vol] 6.7 g/dL Invalid 6.0-8.3 Hospita 11-0 4-2 Interpreta g/dL l 019 tion Code Distric 07:20-0 t #1 of 500 [facility] ([id number]) RBC (Bld) [#/Vol] 3.81 10*6/uL Invalid 3.60-5.00 Hospita Interpreta M/uL l 019 tion Code Distric 07:20-0 t [address] [place] [address] ([id number]) Sodium [Moles/Vol] 140 mmol/L Invalid 134-148 Hospita 02-21 Interpreta mmol/L l 019 tion Code Distric 07:20-0 t [address] [place] [address] ([id number]) TSH Qn 1.24 Invalid 0.32-5.00 Hospita Interpreta mIU/mL l 019 tion Code Distric 07:20-0 t [address] [place] [address] ([id number]) Urea nitrogen 16 mg/dL Invalid 5-25 mg/dL Hospita [Mass/Vol] Interpreta l 019 tion Code Distric 07:20-0 t [address] [place] [address] ([id number]) WBC (Bld) [#/Vol] 10.11 10*3/uL High 5.00-10.00 Hospita K/uL l 019 Distric 07:20-0 t [address] [place] [address] ([id number]) not yet categorized on 2019-09-07 Electrocardiograms Complete Invalid Hospita recorded Interpreta l 019 tion Code Distric 14:26-0 t [address] [place] [address] () Urine Volume Urine Volume Sufficient (10mL) Invalid [facility] Inter[facility] l 019 tion Code Distric 15:39-0 t [address] [place] [address] ([id number]) Urine Saved if Culture Needed (48hrs from Abnormal Hosp jimmy time of collection) l 019 Distric 15:39-0 t [address] [place] [address] () laboratory on 2019-09-07 Albumin BCG dye 4.6 Invalid 3.6-5.1 Hospita [Mass/Vol] Interpreta g/dL l 019 tion Code Distric 14:26-0 t [address] [place] [address] ([id number]) ALP [Catalytic 88 U/L Invalid 35-130 U/L Hospita 10-17-2 activity/Vol] Interpreta l 019 tion Code Distric 14:26-0 t [address] [place] [address] ([id number]) ALT [Catalytic 15 U/L Invalid 6-45 U/L Hospita 10-17-2 activity/Vol] Interpreta l 019 tion Code Distric 14:26-0 t [address] [place] [address] () Anion gap 15 mmol/L High 6-14 Hospita 10-17-2 [Moles/Vol] l 019 Distric 14:26-0 t [address] [place] [address] ([id number]) AST [Catalytic 16 U/L Invalid 2-40 U/L Hospita 1017-2 activity/Vol] Interpreta l 019 tion Code Distric 14:26-0 t [address] [place] [address] ([id number]) Bacteria LM Ql Negative Invalid Hospita 09-07-2 (Urine sed) Interpreta l 019 tion Code Distric 15:39-0 t [address] [place] [address] ([id number]) Basophils (Bld) 0.0 10*3/uL Invalid 0.0-0.2 Hospita 1017 -2 [#/Vol] Interpreta K/uL l 019 tion Code Distric 14:26-0 t [address] [place] [address] () Basophils/100 WBC 0.30 % Invalid 0.00-2.50 Hospita 10-17 -2 (Bld) Interpreta % l 019 tion Code Distric 14:26-0 t [address] [place] [address] () Bilirubin [Mass/Vol] 0.8 mg/dL Invalid 0.2-1.2 Hospita 10 -17-2 Interpreta mg/dL l 019 tion Code Distric 14:26-0 t [address] [place] [address] ([id number]) Bilirubin Confirm Ql N/A Abnormal Negative Hospita 10 -17-2 (U) l 019 Distric 15:39-0 t [address] [place] [address] ([id number]) Bilirubin Ql (U) Negative Invalid Negative Hospita 10-17- 2 Interpreta l 019 tion Code Distric 15:39-0 t [address] [place] [address] () Calcium [Mass/Vol] 10.2 mg/dL Invalid 8.3-10.4 Hospita 10- 17-2 Interpreta mg/dL l 019 tion Code Distric 14:26-0 t [address] [place] [address] () Chloride [Moles/Vol] 105 mmol/L Invalid 95-114 Hospita 1 0-17-2 Interpreta mmol/L l 019 tion Code Distric 14:26-0 t #[address] [place] [address] ([id number]) CK [Catalytic 94 U/L Invalid 26-174 U/L Hospita 09-07-2 activity/Vol] Interpreta l 019 tion Code Distric 14:26-0 t [address] [place] [address] ([id number]) CK.MB [Mass/Vol] 1.3 ng/mL Invalid 0.0-9.2 Hospita 09-07- 2 Interpreta ng/ml l 019 tion Code Distric 14:26-0 t [address] [place] [address] () Clarity (U) Clear Invalid Clear Hospita 09-07- Interpreta l 019 tion Code Distric 15:39-0 t [address] [place] [address] ([id number]) Cobalamin (Vitamin 407.00 pg/mL Invalid 213.00-816 Hospita 09-07-2 B12) [Mass/Vol] Interpreta .00 pg/mL l 019 tion Code Distric 14:26-0 t #[address] [place] [address] ([id number]) Color (U) Yellow Invalid Colorless- Hospita 09-07-2 Interpreta Lt. Yellow l 019 tion Code Distric 15:39-0 t [address] [place] [address] ([id number]) Creatinine 1.19 mg/dL Invalid 0.50-1.50 Hospita 10-17-2 [Mass/Vol] Interpreta mg/dL l 019 tion Code Distric 14:26-0 t [address] [place] [address] ([id number]) Eosinophils (Bld) 0.1 10*3/uL Invalid 0.0-0.7 Hospita 10 17-2 [#/Vol] Interpreta K/uL l 019 tion Code Distric 14:26-0 t [address] [place] [address] ([id number]) Eosinophils/100 WBC 1.0 % Invalid 0.0-7.0 % Hospita 10- 17-2 (Bld) Interpreta l 019 tion Code Distric 14:26-0 t [address] [place] [address] ([id number]) Epithelial 0-5/HPF Abnormal Hospita 10-17-2 cells.squamous l 019 LM.HPF (Urine sed) Distric 15:39-0 [#/Area] t [address] [place] [address] ([id number]) Erythrocyte 11.6 % Invalid 11.6-14.8 Hospita -17-2 distribution width Interpreta % l 019 (RBC) [Ratio] tion Code Distric 14:26-0 t [address] [place] [address] (40893) GFR/1.73 sq 48 mL/min/{1.73_m2} Low >59 Hospita 1 0-17-2 M.predicted MDRD mL/min/1.7 l 019 (S/P/Bld) [Vol 3m2 Distric 14:26-0 rate/Area] t [address] [place] [address] ([id number]) Globulin (S) 3.2 g/dL Invalid 2.3-3.5 Hospita -17-2 [Mass/Vol] Interpreta g/dL l 019 tion Code Distric 14:26-0 t [address] [place] [address] ([id number]) Glucose [Mass/Vol] 101 mg/dL Invalid 70-110 Hospita 10- 7-2 Interpreta mg/dL l 019 tion Code Distric 14:26-0 t [address] [place] [address] ([id number]) Glucose Test strip Negative Invalid Negative Hospita 10- 7-2 (U) [Mass/Vol] Interpreta l 019 tion Code Distric 15:39-0 t [address] [place] [address] ([id number]) HCO3 (P) [Moles/Vol] 23 Invalid 22-33 Hospita 17-2 Interpreta mEq/L l 019 tion Code Distric 14:26-0 t [address] [place] [address] ([id number]) Hematocrit (Bld) 42.6 % Invalid 36.0-46.0 Hospita 10-17- 2 [Volume fraction] Interpreta % l 019 tion Code Distric 14:26-0 t [address] [place] [address] ([id number]) Hemoglobin (Bld) 14.8 g/dL Invalid 13.0-15.0 Hospita 10-17- 2 [Mass/Vol] Interpreta g/dL l 019 tion Code Distric 14:26-0 t #1 of [address] [facility] ([id number]) Hemoglobin Ql (U) Negative Invalid Negative [facility] 09-07 Interpreta l 019 tion Code Distric 15:39-0 t [address] [place] [address] ([id number]) Ketones (U) Negative Invalid Negative Hospita [Mass/Vol] Interpreta l 019 tion Code Distric 15:39-0 t [address] [place] [address] ([id number]) Leukocyte esterase Negative Invalid Negative [facility] 08-22 Test strip Ql (U) Interpreta l 019 tion Code Distric 15:39-0 t [address] [place] [address] () Lymphocytes (Bld) 3.01 10*3/uL Invalid 0.60-3.40 Hospita [#/Vol] Interpreta K/uL l 019 tion Code Distric 14:26-0 t [address] [place] [address] () Lymphocytes/100 WBC 42.6 % Invalid 10.0-50.0 [facility] (Bld) Interpreta % l 019 tion Code Distric 14:26-0 t #1 of 400 [facility] ([id number]) MCH (RBC) [Entitic 33.6 pg High 27.0-31.0 Hospita 08-22 7-2 mass] pg l 019 Distric 14:26-0 t [address] [place] [address] ([id number]) MCHC (RBC) 34.7 g/dL Invalid 32.0-36.0 [facility] [Mass/Vol] Interpreta g/dL l 019 tion Code Distric 14:26-0 t [address] [place] [address] (34708) MCV (RBC) [Entitic 96.6 fL Invalid 80.0-97.0 Hospita 08-22 7-2 vol] Interpreta fL l 019 tion Code Distric 14:26-0 t [address] [place] [address] ([id number]) Monocytes (Bld) 0.5 10*3/uL Invalid 0.0-0.9 Hospita 09-07 [#/Vol] Interpreta K/uL l 019 tion Code Distric 14:26-0 t [address] [place] [address] ([id number]) Monocytes/100 WBC 6.9 % Invalid 0.0-12.0 % Hospita 10-1 7-2 (Bld) Interpreta l 019 tion Code Distric 14:26-0 t [address] [place] [address] ([id number]) Myoglobin [Mass/Vol] 33.5 ng/mL Invalid 1.6-106.0 Hospita 1 -2 Interpreta ng/ml l 019 tion Code Distric 14:26-0 t [address] [place] [address] () Neutrophils (Bld) 3.47 10*3/uL Invalid 2.00-6.90 Hospita [#/Vol] Interpreta K/uL l 019 tion Code Distric 14:26-0 t [address] [place] [address] (83174) Neutrophils/100 WBC 49.2 % Invalid 37.0-80.0 Hospita - (Bld) Interpreta % l 019 tion Code Distric 14:26-0 t [address] [place] [address] (96186) Nitrite Ql (U) Negative Invalid Negative Hospita Interpreta l 019 tion Code Distric 15:39-0 t [address] [place] [address] ([id number]) Osmolality Calc 289 Invalid 280-295 Hospita [Osmolality] Interpreta l 019 tion Code Distric 14:26-0 t [address] [place] [address] ([id number]) pH (U) 5.5 [pH] Invalid 5-8.5 Hospita Interpreta l 019 tion Code Distric 15:39-0 t [address] [place] [address] ([id number]) Platelet mean volume 11.8 fL High 7.4-10.0 Hospita - (Bld) [Entitic vol] fL l 019 Distric 14:26-0 t [address] [place] [address] ([id number]) Platelets (Bld) 221 10*3/uL Invalid 150-400 Hospita 09-07 [#/Vol] Interpreta K/uL l 019 tion Code Distric 14:26-0 t #1 of 400 [facility] () Potassium 3.8 mmol/L Invalid 3.5-5.3 Hospita [Moles/Vol] Interpreta mmol/L l 019 tion Code Distric 14:26-0 t [address] [place] [address] () Protein (U) Negative Invalid Negative Hospita [Mass/Vol] Interpreta l 019 tion Code Distric 15:39-0 t [address] [place] [address] () Protein [Mass/Vol] 7.8 g/dL Invalid 6.0-8.3 Hospita 08-22 7-2 Interpreta g/dL l 019 tion Code Distric 14:26-0 t [address] [place] [address] () RBC (Bld) [#/Vol] 4.41 10*6/uL Invalid 3.60-5.00 [facility] Interpreta M/uL l 019 tion Code Distric 14:26-0 t [address] [place] [address] () RBC LM.HPF (Urine Negative Invalid Hospita sed) [#/Area] Interpreta l 019 tion Code Distric 15:39-0 t [address] [place] [address] () Sodium [Moles/Vol] 139 mmol/L Invalid 134-148 Hospita Interpreta mmol/L l 019 tion Code Distric 14:26-0 t [address] [place] [address] () Specific gravity (U) 1.010 Invalid 1.000-1.03 Hospita 1 17-2 [Rel density] Interpreta 0 l 019 tion Code Distric 15:39-0 t [address] [place] [address] () Troponin I.cardiac ng/mL Invalid 0.0-0.4 Hospita 08-22 7-2 [Mass/Vol] Interpreta ng/mL l 019 tion Code Distric 14:26-0 t [address] [place] [address] () Urea nitrogen 18 mg/dL Invalid 5-25 mg/dL Hospita [Mass/Vol] Interpreta l 019 tion Code Distric 14:26-0 t [address] [place] [address] () Urobilinogen Qn (U) [id number] {Rody'U}/dL Abnormal 0.2-1.0 Hospita l 019 Distric 15:39-0 t #1 of 400 [facility] ([id number]) WBC (Bld) [#/Vol] 7.06 10*3/uL Invalid 5.00-10.00 Hospita 1 -2 Interpreta K/uL l 019 tion Code Distric 14:26-0 t #1 of 400 [facility] ([id number]) WBC LM.HPF (Urine Negative Invalid Hospita 09-07- sed) [#/Area] Interpreta l 019 tion Code Distric 15:39-0 t #1 of 400 [facility] ([id number]) laboratory on 2018-04-01 Albumin [Mass/Vol] 4.4 g/dL Normal 3.6-5.1 Communi g/dL [facility] (37714) Albumin/Globulin 1.6 {ratio} Normal 1.0-2.5 Communi [Mass ratio] (calc) [facility] ([id number]) ALP [Catalytic 89 U/L Normal 33-115 U/L Communi activity/Vol] [facility] (95195) ALT [Catalytic 12 U/L Normal 6-29 U/L Communi activity/Vol] [facility] (95591) AST [Catalytic 15 U/L Normal 10-35 U/L Communi activity/Vol] [facility] (65262) Bilirubin [Mass/Vol] 0.7 mg/dL Normal 0.2-1.2 Commu ni mg/dL [facility] (54993) Calcium [Mass/Vol] 9.8 mg/dL Normal 8.6-10.2 Communi mg/dL [facility] (59130) Chloride [Moles/Vol] 105 mmol/L Normal 98-110 Commu ni mmol/L [facility] (15873) CO2 [Moles/Vol] 28 mmol/L Normal 20-31 Communi mmol/L [facility] (29142) Creatinine 0.96 mg/dL Normal 0.50-1.10 Communi [Mass/Vol] mg/dL [facility] (56007) GFR/1.73 sq 80 mL/min/{1.73_m2} Normal > OR = 60 Commun i M.predicted among mL/min/1.7 ty blacks MDRD [address] [place] [address] (S/P/Bld) [[facility] rate/Area] [facility] () GFR/1.73 sq 69 mL/min/{1.73_m2} Normal > OR = 60 Commun i M.predicted MDRD mL/min/1.7 ty (S/P/Bld) [Vol 2 [facility] rate/Area] [facility] (73676) Globulin (S) 2.7 g/dL Normal 1.9-3.7 Communi [Mass/Vol] g/dL ty (calc) [facility] (42263) Glucose [Mass/Vol] 94 mg/dL Normal 65-99 Communi mg/dL ty [facility] (23112) Potassium 4.2 mmol/L Normal 3.5-5.3 Communi [Moles/Vol] mmol/L ty [facility] (80466) Protein [Mass/Vol] 7.1 g/dL Normal 6.1-8.1 Communi g/dL ty [facility] (96704) Sodium [Moles/Vol] 142 mmol/L Normal 135-146 Communi mmol/L ty [facility] (90440) Urea nitrogen 10 mg/dL Normal 7-25 mg/dL Communi [Mass/Vol] ty [facility] (63989) Urea NOT APPLICABLE Invalid 05-13 Communi nitrogen/Creatinine Interpreta (calc) ty [Mass ratio] tion Code [facility] (16825) not yet categorized on 2017-10-18 Urine Volume Urine Volume Insufficient (<10mL) May Affect Invali d Microscopic Exam Interpreta Availab 017 tion Code le 11:18-0 (55080) 500 Urine Saved if Culture Needed (48hrs from Abnormal time of collection) Availab 017 le 11:18-0 (73718) 500 laboratory on 2017-10-18 Amphetamines Ql (U) Negative Invalid NEGATIVE Not 11- 27-2 Interpreta Availab 017 tion Code le 11:18-0 (38565) 500 Anion gap 17 mmol/L High 6-14 Not [Moles/Vol] Availab 017 le 11:18-0 (32504) 500 Bacteria LM Ql Negative Invalid Not (Urine sed) Interpreta Availab 017 tion Code le 11:18-0 (07831) 500 Barbiturates Screen Negative Invalid NEGATIVE Not Ql (U) Interpreta Availab 017 tion Code le 11:18-0 (81059) 500 Basophils (Bld) 0.0 10*3/uL Invalid 0.0-0.2 Not 10-18 [#/Vol] Interpreta K/uL Avail[facility] 017 tion Code le 11:18-0 (85827) 500 Basophils/100 WBC 0.10 % Invalid 0.00-2.50 Not 10-18 (Bld) Interpreta % Availab 017 tion Code le 11:18-0 (53131) 500 Benzodiazepine Positive Critically NEGATIVE Not metabolites Screen abnormal [facility] 017 Ql (U) le 11:18-0 (58936) 500 Bilirubin Confirm Ql QNS For Testing Abnormal Negative Not (U) Availab 017 le 11:18-0 (27711) 500 Bilirubin Ql (U) 2+ Abnormal Negative Not [facility]ail[facility] 017 le 11:18-0 (38974) 500 Calcium [Mass/Vol] 9.8 mg/dL Invalid 8.3-10.4 Not 11-2 7-2 Interpreta mg/dL [facility]ail[facility] 017 tion Code le 11:18-0 (19638) 500 Carboxy Positive Critically NEGATIVE Not tetrahydrocannabinol abnormal [facility] 017 Ql (U) le 11:18-0 (98201) 500 Chloride [Moles/Vol] 107 mmol/L Invalid 95-114 Not 1 Interpreta mmol/L [facility] 017 tion Code le 11:18-0 (45608) 500 Clarity (U) Slightly Cloudy Abnormal Clear Not 10-18 Availab 017 le 11:18-0 (02188) 500 Cocaine Ql (U) Negative Invalid NEGATIVE Not Interpreta [facility]ailab 017 tion Code le 11:18-0 (80025) 500 Color (U) Yellow Invalid Colorless- Not Interpreta Lt. Yellow [facility]ail[facility] 017 tion Code le 11:18-0 (51112) 500 Creatinine 0.97 mg/dL Invalid 0.50-1.50 Not 10-18-2 [Mass/Vol] Interpreta mg/dL [facility]ail[facility] 017 tion Code le 11:18-0 (86523) 500 Crystals LM Nom 4+ Amorphous Invalid Not (Urine sed) Interpreta Availab 017 tion Code le 11:18-0 (52711) 500 Eosinophils (Bld) 0.0 10*3/uL Invalid 0.0-0.7 Not [#/Vol] Interpreta K/uL Availab 017 tion Code le 11:18-0 (31201) 500 Eosinophils/100 WBC 0.2 % Invalid 0.0-7.0 % Not (Bld) Interpreta Availab 017 tion Code le 11:18-0 (66114) 500 Epithelial TNTC Abnormal Not cells.squamous Availab 017 LM.HPF (Urine sed) le 11:18-0 [#/Area] (74869) 500 Erythrocyte 12.3 % Invalid 11.6-14.8 Not distribution width Interpreta % Availab 017 (RBC) [Ratio] tion Code le 11:18-0 (26918) 500 GFR/1.73 sq 61 mL/min/{1.73_m2} Invalid >59 Not 1 12-18-2 M.predicted MDRD Interpreta mL/min/1.7 Avail[facility] 017 (S/P/Bld) [Vol tion Code 3m2 le 11:18-0 rate/Area] (76851) 500 Glucose [Mass/Vol] 99 mg/dL Invalid 70-110 Not 11- 7-2 Interpreta mg/dL [facility] 017 tion Code le 11:18-0 (73341) 500 Glucose Test strip Negative Invalid Negative Not 11-2 7-2 (U) [Mass/Vol] Interpreta Availab 017 tion Code le 11:18-0 (63719) 500 HCO3 (P) [Moles/Vol] 21 Low 22-33 Not -2 mEq/L [facility]ail[facility] 017 le 11:18-0 (81460) 500 Hematocrit (Bld) 45.3 % Invalid 36.0-46.0 Not [Volume fraction] Interpreta % Availab 017 tion Code le 11:18-0 (27605) 500 Hemoglobin (Bld) 15.4 g/dL High 13.0-15.0 Not 10-18- 2 [Mass/Vol] g/dL [facility]ail[facility] 017 le 11:18-0 (94855) 500 Hemoglobin Ql (U) Negative Invalid Negative Not 10-18 Interpreta Availab 017 tion Code le 11:18-0 (37242) 500 Ketones (U) Trace Abnormal Negative Not [Mass/Vol] [facility]ail[facility] 017 le 11:18-0 (74234) 500 Leukocyte esterase Negative Invalid Negative Not 09-23 Test strip Ql (U) Interpreta Availab 017 tion Code le 11:18-0 (93709) 500 Lymphocytes (Bld) 2.10 10*3/uL Invalid 0.60-3.40 Not [#/Vol] Interpreta K/uL Availab 017 tion Code le 11:18-0 (22107) 500 Lymphocytes/100 WBC 24.9 % Invalid 10.0-50.0 Not (Bld) Interpreta % Availab 017 tion Code le 11:18-0 (06530) 500 MCH (RBC) [Entitic 33.3 pg High 27.0-31.0 Not - 7-2 mass] pg [facility]ail[facility] 017 le 11:18-0 (57901) 500 MCHC (RBC) 34.0 g/dL Invalid 32.0-36.0 Not 10-18- [Mass/Vol] Interpreta g/dL [facility] 017 tion Code le 11:18-0 (89684) 500 MCV (RBC) [Entitic 98.1 fL High 80.0-97.0 Not 11- 7-2 vol] fL [facility]ail[facility] 017 le 11:18-0 (54032) 500 Methylenedioxymetham Negative Invalid NEGATIVE Not phetamine Screen Ql Interpreta [facility]ail[facility] 017 (U) tion Code le 11:18-0 (41197) 500 Monocytes (Bld) 0.5 10*3/uL Invalid 0.0-0.9 Not 10-18 [#/Vol] Interpreta K/uL [facility]ail[facility] 017 tion Code le 11:18-0 (18567) 500 Monocytes/100 WBC 6.0 % Invalid 0.0-12.0 % Not 09-23 7-2 (Bld) Interpreta [facility]ail[facility] 017 tion Code le 11:18-0 (62980) 500 Mucus Ql (Urine sed) 4+ Abnormal Not 10-18 Avail[facility] 017 le 11:18-0 (12808) 500 Neutrophils (Bld) 5.80 10*3/uL Invalid 2.00-6.90 Not [#/Vol] Interpreta K/uL [facility]ail[facility] 017 tion Code le 11:18-0 (12527) 500 Neutrophils/100 WBC 68.8 % Invalid 37.0-80.0 Not (Bld) Interpreta % Availab 017 tion Code le 11:18-0 (65318) 500 Nitrite Ql (U) Negative Invalid Negative Interpreta [facility]ail[facility] 017 tion Code le 11:18-0 (83968) 500 Opiates Screen Ql Negative Invalid NEGATIVE Not 10-18 (U) Interpreta [facility]ail[facility] 017 tion Code le 11:18-0 (74948) 500 Osmolality Calc 293 Invalid 280-295 Not [Osmolality] Interpreta [facility]ail[facility] 017 tion Code le 11:18-0 (98103) 500 oxyCODONE Ql (U) Negative Invalid NEGATIVE Not Interpreta [facility]ail[facility] 017 tion Code le 11:18-0 (62970) 500 pH (U) 5.5 [pH] Invalid 5-8.5 Not Interpreta [facility]ail[facility] 017 tion Code le 11:18-0 (81413) 500 Phencyclidine Ql (U) Negative Invalid NEGATIVE Interpreta [facility]ail[facility] 017 tion Code le 11:18-0 (96217) 500 Platelet mean volume 10.9 fL High 7.4-10.0 Not (Bld) [Entitic vol] fL [facility] 017 le 11:18-0 (45169) 500 Platelets (Bld) 267 10*3/uL Invalid 150-400 Not 10-18 [#/Vol] Interpreta K/uL [facility]ail[facility] 017 tion Code le 11:18-0 (62158) 500 Potassium 4.2 mmol/L Invalid 3.5-5.3 Not [Moles/Vol] Interpreta mmol/L [facility] 017 tion Code le 11:18-0 (84202) 500 Propoxyphene Ql (U) Negative Invalid NEGATIVE Not Interpreta [facility] 017 tion Code le 11:18-0 (87841) 500 Protein (U) 2+ Abnormal Negative Not [Mass/Vol] [facility] 017 le 11:0 (66801) 500 RBC (Bld) [#/Vol] 4.62 10*6/uL Invalid 3.60-5.00 Interpreta M/uL [facility]ail[facility] 017 tion Code le 11:-0 (64262) 500 RBC LM.HPF (Urine Negative Invalid Not sed) [#/Area] Interpreta [facility]ail[facility] 017 tion Code le 11:0 (45685) 500 Sodium [Moles/Vol] 141 mmol/L Invalid 134-148 Not Interpreta mmol/L [facility]ail[facility] 017 tion Code le 11:-0 (32833) 500 Specific gravity (U) >=1.030 Abnormal 1.000-1.03 Not [Rel density] 0 [facility]ail[facility] 017 le 11:18-0 (64923) 500 Tricyclic Negative Invalid NEGATIVE Not antidepressants Ql Interpreta [facility]ail[facility] 017 (U) tion Code le 11:-0 (90608) 500 TSH Qn 2.32 Invalid 0.32-5.00 Interpreta mIU/mL [facility] 017 tion Code le 11:-0 (97927) 500 Urea nitrogen 19 mg/dL Invalid 5-25 mg/dL Not [Mass/Vol] Interpreta [facility] 017 tion Code le 11:18-0 (96873) 500 Urobilinogen Qn (U) 1.617662922 {Rody'U}/dL Abnormal 0.2-1.0 Not [facility]ail[facility] 017 le 11:18-0 (47241) 500 WBC (Bld) [#/Vol] 8.44 10*3/uL Invalid 5.00-10.00 Not 1 Interpreta K/uL Availab 017 tion Code le 11:18-0 (79904) 500 WBC LM.HPF (Urine Negative Invalid Not sed) [#/Area] Interpreta Availab 017 tion Code le 11:18-0 (97422) 500 Yeast.budding Ql No Yeast present Invalid Not 09-23 (Urine sed) Interpreta Availab 017 tion Code le 11:18-0 (52276) 500 Social History No Information Vital Signs Date Time Vital Sign Value Performing Clinician Facil ity 09-16-2018 Body height 154.94 cm [facility] 11:20-0400 Other Phone: [facility] [place] ([id number]) 09-16-2018 Body mass index 20.93 kg/m2 [facility] 11:20-0400 (BMI) [Ratio] Other Phone: [facility] [place] ([id number]) 09-16-2018 Body temperature 98.4 [degF] [facility] 11:20-0400 Other Phone: [facility] [place] ([id number]) 09-16-2018 Body weight 50.26 kg [facility] 11:20-0400 Other Phone: [facility] [place] ([id number]) 04-01-2018 Body height 154.94 cm [facility] 11:40-0400 Other Phone: [facility] [place] ([id number]) 04-01-2018 Body mass index 20.59 kg/m2 [facility] 11:40-0400 (BMI) [Ratio] Other Phone: [facility] [place] ([id number]) 04-01-2018 Body temperature 97.9 [degF] [facility] 11:40-0400 Other Phone: [facility] [place] ([id number]) 04-01-2018 Body weight 49.44 kg [facility] 11:40-0400 Other Phone: [facility] [place] ([id number]) 01-10-2015 Body height 152.4 cm [facility] 13:23-0500 Other Phone: [facility] [place] ([id number]) 01-10-2015 Body temperature 98.1 [degF] [facility] 13:23-[facility] Other Phone: [facility] [place] ([id number]) 01-10-2015 [facility] 13:23-05[facility] Other Phone: [facility] [place] ([id number]) 11-01-2014 Body height 152.4 cm [facility] 16:02-0500 Other Phone: [facility] [place] ([id number]) 11-01-2014 Body temperature 98.7 [degF] [facility] 16:02-0500 Other Phone: [facility] [place] ([id number]) 11-01-2014 Body weight 52.94 kg [facility] 16:02-0500 Other Phone: [facility] [place] ([id number]) 10-03-2014 Body height 152.4 cm [facility] 13:37-0500 Other Phone: [facility] [place] ([id number]) 10-03-2014 Body temperature 98.6 [degF] [facility] 13:37-0500 Other Phone: [facility] [place] ([id number]) 10-03-2014 Body weight 50.8 kg [facility] 13:37-0500 Other Phone: [facility] [place] ([id number]) 08-02-2014 Body height 152.4 cm [facility] 16[facility]32-[facility]00 Other Phone: [facility] [place] ([id number]) 08-02-2014 Body temperature 97.2 [degF] [facility] 16:[facility] Other Phone: [facility] [place] ([id number]) 08-02-2014 Body weight 53.48 kg [facility] 16:32-0400 Other Phone: [facility] [place] ([id number]) 12-07-2013 Body height 152.4 [facility] 14:17-0500 Other Phone: [facility] [place] ([id number]) 12-07-2013 Body temperature 97.6 [degF] [facility] 14:17-0500 Other Phone: [facility] [place] ([id number]) 12-07-2013 Body [facility] 5.76 [facility] 14:17-0500 Other Phone: [facility] [place] ([id number]) 05-18-2013 Body height 152.4 cm [facility] 15:44-0400 [facility] ([id number]) 05-18-2013 Body temperature 98.5 [degF] [facility] 15:44-0400 [facility] ([id number]) 05-18-2013 Body weight 54.66 kg [facility] 15:44-0400 [facility] ([id number]) Functional Status The data below is from unstructured sources Query Response Date Al rded Patient Orientation Person Place Time Situation Eyes Open October 11, 2016 3:03pm Query Response Date Al rded Patient Orientation Person Place Time Situation Normal For Age January 26, 2016 9:25pm Query Response Date Al rded Patient Orientation Person Place Time Situation Eyes Open September 07, 2014 2:36pm Comprehension Ability Understands Co ncepts September 06, 2014 9:15pm Mental Status No Information Summary Purpose eClinicalWorks SubmissioneClinicalWorks SubmissioneClinicalWorks SubmissioneClinicalWorks SubmissioneClinicalWorks SubmissioneClinicalWorks SubmissioneClinicalWorks SubmissioneClinicalWorks SubmissioneClinicalWorks SubmissioneClinicalWorks SubmissioneClinicalWorks SubmissioneClinicalWorks SubmissioneClinicalWorks SubmissioneClinicalWorks SubmissioneClinicalWorks SubmissioneClinicalWorks Submission Advance Directives Directive Response Recor ded Date/Time Advance Directives No 11:17pm Health Care Power of Blueprint Clerk No 10/10/16 11:17pm Organ Donor No 10/10/16 11:17pm Resuscitation Status Full Code 10/10/16 11:17pm Directive Response Recor ded Date/Time Advance Directives No 7:41pm Health Care Power of Blueprint Clerk No 11/30/16 7:41pm Organ Donor No 11/30/16 7:41pm Directive Response Recor ded Date/Time Advance Directives No 9:25pm Health Care Power of Blueprint Clerk No 01/26/16 9:25pm Organ Donor Yes 01/26/16 9:25pm Resuscitation Status Full Code 01/26/16 9:25pm Directive Response Recor ded Date/Time Advance Directives No 2:39pm Health Care Power of Blueprint Clerk No 03/19/16 2:39pm Organ Donor Yes 03/19/16 2:39pm Resuscitation Status Full Code 03/19/16 2:39pm Directive Response Recor ded Date/Time Advance Directives No 1:37pm Health Care Power of Blueprint Clerk No 12/13/14 1:37pm Organ Donor Yes 12/13/14 1:37pm Resuscitation Status Full Code 12/13/14 1:37pm Directive Response Recor ded Date/Time Advance Directives No 9:15pm Health Care Power of Blueprint Clerk No 09/06/14 9:15pm Organ Donor Yes 09/06/14 7:22pm Resuscitation Status Full Code 09/06/14 9:15pm Discharge Instructions Patient Instructions Physician Instructions New, Converted or Re-Newed RX: Transmitted to Pharmacy Goal/Follow Up Appt: [facility] will call you with an appointment on Wednesday. Patient Instructions: Please take all antibiotics as prescribed. Eat a bland diet until you are feeling better. [facility] to [facility] For: fever, lots of blood through your rectum. Discharge Diet: No Restrictions Activity as Tolerated: Yes Pneu Vac Indicated: Yes Care Plan Patient Instructions:: Please take all antibiotics as prescribed. Eat a bland diet until you arefeeling better. Goal:: [facility] will call you with an appointment on Wednesday morning. No hospital discharge instruction information available.No hospital discharge instructions.No hospital discharge instructions.No hospital discharge instructions.No hospital discharge instructions. Additional Source Comments This clinical document has been generated using [employer] software that has been certified by the Office of the National Coordinator for Health Information Technology (ONC 15.99.04.3023.[id number]) and the National Committee for Quality Control Manager (NCQA, as an eMeasure certified technology). FOR RECORDS PERTAINING TO PATIENTS WHO ARE OR HAVE BEEN ENROLLED IN A CHEMICAL D EPENDENCY/SUBSTANCE ABUSE PROGRAM, SOME INFORMATION MAY BE OMITTED. This clinica l summary was aggregated from multiple sources. Caution should be exercised in using it in the provision of clinical care. This summary normalizes information from multiple sources, and as a consequence, information in this document may ma terially change the coding, format and clinical context of patient data. In chari tion, data may be omitted in some cases. CLINICAL DECISIONS SHOULD BE BASED ON T HE PRIMARY CLINICAL RECORDS. [employer] provides no warranty or guara ntee of the accuracy or completeness of information in this document.The followi ng information is based on time limited clinical information UNRECOGNIZED CONTENT PROVIDED BELOW FOR UNRECOGNIZED SECTION REASON FOR VISIT refill requesthigh BP, needs med refilled Zach CAGLE, has been out of BP med for a odrytGRR-AlkMTM-YffWLB-XiqYYD-XeuEBG-HguTBQ-IgeMBF-HoxSTM-PpzLRV-MigEMR-MigEMR -MigEMR-Brien
--- OUTSIDE RECORDS SUMMARY | 2020-05-31 11:39 | XMS REPORT ---
Author Author Jeane Camacho Doctor Organization [facility] Address Unknown Phone Unavailable Care Team Providers Care Counsel Name Role Phone Migration, Doctor Unavailable Unavailable PROBLEMS Type Condition ICD9-CM Code FEI02-EA Code Onset Dates Condition S tatus SNOMED Code Problem Depression F32.9 Active 40105332 Problem Anxiety F41.9 Active 12598662 Problem Environmental allergies Z91.09 Active 569992029 Problem Atherosclerotic heart diseas e of [place] coronary 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 Active 883854026 Problem Lumbago with sciatica, unspecified side M54.40 Active 748874038 Problem Chronic pain syndrome G89.4 Active 109355502 Problem Hypercholesterolemia with hypertriglyceridemia E78 .2 Active 569052552 Problem Major depressive disorder, recurrent sev ere without psychotic features F33.2 Active 84236983 Problem Dysthymia (or depressive neurosis) F34.1 Active 30159858 Problem Cigarette nicotine dependence without complication F17.210 Active 19994400 Problem Alcohol use disorder, moderate, in sustained remission F10.21 Active 36832812 Problem Cannabis use disorder, mild, abuse F12.10 Active 24975778 Problem Elevated blood pressure I10 Active 36174558 ALLERGIES No Information ENCOUNTERS Encounter Location Date Diagnosis [facility] [address] [facility] [id number] [address] [place] [address] Dec, [facility] [address] [place] [id number] [address] [place] [address] Dec, Major depressive disorder, r ecurrent severe without psychotic features F33.2 ; Chronic pain syndrome G89.4 and Encounter for immunization Z23 [facility] [address] [id number] [place] [id number] Aug, Elevated blood pressure I10 [facility] [address] [facility] [id number] [address] [place] [address] May, Hypercholesterolemia with hy pertriglyceridemia E78.2 and Atherosclerotic heart disease of [place] coronary 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 [place] [address] [facility] [id number] [address] [place] [id number] 11 Mar, 2018 Lumbago with sciatica, unspe cified side M54.40 ; Environmental allergies Z91.09 ; Hypercholesterolemia with hypertriglyceridemia E78.2 and Atherosclerotic heart disease of [place] coronary 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 [place] [address] [place] [id number] [address] [place] [id number] 14 Dec, 2017 Severe episode of recurrent major depressive disorder, without psychotic features F33.2 ; Alcohol use disorder, moderate, in sustained remission F10.21 and Cannabis use disorder, mild, abuse F12.10 [place] [address] [place] [id number] [address] [place] [id number] 12 Dec, 2017 Severe episode of recurrent major depressive disorder, without psychotic features F33.2 [place] [address] [place] [id number] [address] [place] [id number] 18 Nov, 2017 [place] [address] [facility] [id number] [address] [place] [id number] 08 Nov, 2017 Atherosclerotic heart diseas e of [place] coronary 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 ; Hypercholesterolemia with hypertriglyceridemia E78.2 ; Depression F32.9 and Cigarette nicotine dependence without complication F17.210 [place] [address] [place] [id number] [address] [place] [address] Oct, [place] [address] [facility] [id number] [address] [place] [address] Jul, [place] [address] [facility] [id number] [address] [place] [address] Jun, [place] [address] [place] [id number] [address] [place] [address] Apr, Pain in thoracic spine M54.6 and Lumbago with sciatica, unspecified side M54.40 [place] [address] [facility] [id number] [address] [place] [phone] March, [place] [address] [place] [id number] [address] [place] [address] March, Depression F32.[address] [address] March, Anxiety F41.9 ; Depression F 32.9 ; Atherosclerotic heart disease of [place] coronary 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 ; Hypercholesterolemia with hypertriglyceridemia E78.2 ; Right wrist tendonitis M77.8 and Environmental allergies Z91.09 [facility] [address] [facility] [id number] [place] [id number] Dec, [place] [address] [address] Nov, Iron deficiency anemia, unsp ecified iron deficiency anemia type D50.9 ; Anxiety F41.9 ; Dysthymia (or depressive neurosis) F34.1 and Hypercholesterolemia with hypertriglyceridemia E78.[address] [address] Oct, [address] [address] Oct, [address] [address] Oct, Dysthymia (or depressive sherice rosis) F34.1 ; Atherosclerotic heart disease of [place] coronary 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 ; Coronary atherosclerosis due to lipid rich plaque I25.83 ; Hypercholesterolemia with hypertriglyceridemia E78.2 ; Iron deficiency anemia, unspecified iron deficiency anemia type D50.9 ; Hospital discharge follow-up Z09 ; History of PID Z87.42 ; Environmental allergies Z91.09 and Dysuria R30.[address] [address] Sep, [address] [address] Sep, [address] [place] [address] 10 Aug, 2016 Dysthymia F34.1 and Anxiety F41.9 [place] [address] [place] [id number] 05 Mar, 2016 Coronary artery disease invo lving [place] coronary artery, angina presence unspecified, unspecified whether [place] or transplanted heart I25.10 ; Bipolar 1 disorder, depressed F31.9 ; Anxiety F41.9 and Dysthymia F34.1 [place] [address] [address] 04 Feb, 2016 Depression F32.9 and Stomach pain R10.9 [place] [address] [address] Jan, Hyperlipidemia 272.4 [place] [address] [address] 17 Dec, 2015 [place] [address] [address] 11 Dec, 2015 Major depressive disorder, r ecurrent episode, unspecified 296.30 ; Anxiety F41.9 ; Grief F43.20 and Dysthymia F34.1 [place] [address] [address] 11 Dec, 2015 Anxiety F41.9 and Grief F43. 20 [place] [address] [address] Oct, Insomnia, unspecified G47.00 and Anxiety F41.9 [place] [address] [address] Oct, Dysthymia F34.1 ; Right shou lder pain M25.511 ; Sciatica, right M54.31 and Iron deficiency anemia, unspecified iron deficiency anemia type D50.9 [place] [address] [address] Sep, [place] [address] [address] Sep, Grief F43.20 [facility] [address] [address] Sep, [facility] [address] [address] Sep, [facility] [address] [address] Sep, Hyperlipidemia E78.5 ; CAD ( coronary artery disease) I25.10 and HTN (hypertension) I10 [place] [address] [address] Aug, Allergic rhinitis, unspecifi ed allergic rhinitis type J30.9 [place] [address] [address] Aug, Left-sided low back pain wit h right-sided sciatica M54.41 and Hyperlipidemia, unspecified hyperlipidemia E78.5 [place] [address] [address] Aug, Neck pain M54.2 and Low back pain M54.5 [facility] [address] [address] Jun, [facility] [address] [address] Jun, [facility] [address] [address] Jun, CAD (coronary artery disease ) 414.00 ; Hyperlipidemia 272.4 and Anemia 285.9 [facility] [address] [address] Feb, [facility] [address] [address] Feb, [facility] [address] [address] Jan, [facility] [address] [id number] [address] [place] [address], [place] [address] Jan, [facility] [address] [id number] [address] [place] [address], [place] [address] Jan, [facility] [address] [id number] [address] [place] [address], [place] [address] Jan, [facility] [address] [id number] [address] [place] [address], [place] [address] Dec, 2014 [facility] [address] [id number] [address] [place] [address], [place] [address] Dec, 2014 [facility] [address] [id number] [address] [place] [address], [place] [address] Dec, 2014 [facility] [address] [id number] [address] [place] [address], [place] [address] Dec, 2014 [facility] [address] [id number] [address] [place] [address], [place] [address] Dec, 2014 [facility] [address] [id number] [address] [place] [address], [place] [address] Dec, 2014 [facility] [address] [id number] [address] [place] [address], [place] [address] Dec, 2014 [facility] [address] [id number] [address] [place] [address], [place] [address] Dec, 2014 [facility] [address] [id number] [address] [place] [address] 12 Dec, 2014 [facility] [address] [id number] [address] [place] [address], [place] [address] Dec, 2014 [facility] [address] [id number] [address] [place] [id number] 05 Dec, 2014 [facility] [address] [id number] [address] [place] [address] Dec, [facility] [address] [id number] [address] [place] [address], [place] [address] Nov, [facility] [address] [id number] [address] [place] [address], [place] [address] Nov, [facility] [address] [id number] [address] [place] [address], [place] [address] Nov, [facility] [address] [id number] [address] [place] [address], [place] [address] Nov, [facility] [address] [id number] [address] [place] [address], [place] [address] Oct, [facility] [address] [id number] [address] [place] [address], [place] [address] Oct, [facility] [address] [id number] [address] [place] [address], [place] [address] Sep, [facility] [address] [id number] [address] [place] [address], [place] [address] Sep, [facility] [address] [id number] [address] [place] [address], [place] [address] Aug, [facility] [address] [id number] [address] [place] [address], [place] [address] Aug, [facility] [address] [id number] [address] [place] [address], [place] [address] 30 Jul, 2014 [facility] [address] [id number] [address] [place] [address] 30 Jul, 2013 [facility] [address] [id number] [address] [place] [address], [place] [address] 16 Jul, 2014 [facility] [address] [id number] [address] [place] [address], [place] [address] 16 Jul, 2014 [facility] [address] [id number] [address] [place] [address], [place] [address] 15 Jul, 2014 [facility] [address] [id number] [address] [place] [address] 12 Jul, 2014 [facility] [address] [id number] [facility] [address] 12 Jul, 2014 [facility] [address] [id number] [address] [place] [address], [place] [address] Jul, [facility] [address] [id number] [address] [place] [address], [place] [address] Jul, [facility] [address] [id number] [address] [place] [address], [place] [address] Jul, [facility] [address] [id number] [address] [place] [address], [place] [address] Jul, [facility] [address] [id number] [address] [place] [address], [place] [address] Jul, [facility] [address] [id number] [address] [place] [address], [place] [address] Jul, [facility] [address] [id number] [address] [place] [address], [place] [address] Jun, [facility] [address] [id number] [address] [place] [address], [place] [address] Jun, [facility] [address] [id number] [address] [place] [address], [place] [address] Jun, [facility] [address] [id number] [address] [place] [address], [place] [address] Jun, [facility] [address] [id number] [address] [place] [address], [place] [address] Jun, [facility] [address] [id number] [address] [place] [address], [place] [address] Jun, [facility] [address] [id number] [address] [place] [address], [place] [address] Jun, [facility] [address] [id number] [address] [place] [address], [place] [address] Jun, [facility] [address] [id number] [facility] [place] [address] May, [facility] [address] [id number] [facility] [place] [address] May, [facility] [address] [id number] [facility] [place] [address] Apr, [facility] [address] [id number] [address] [place] [address], [place] [address] Apr, [facility] [address] [id number] [facility] [place] [address] Apr, [facility] [address] [id number] [address] [place] [address], [place] [address] Apr, [facility] [address] [id number] [address] [place] [address], [place] [address] March, [facility] [address] [id number] [address] [place] [address], [place] [address] March, [facility] [address] [id number] [address] [place] [address], [place] [address] March, [facility] [address] [id number] [address] [place] [address], [place] [address] March, [facility] [address] [id number] [address] [place] [address], [place] [address] March, [facility] [address] [id number] [address] [place] [address], [place] [address] March, [facility] [address] [id number] [address] [place] [address], [place] [address] March, [facility] [address] [id number] [address] [place] [address], [place] [address] March, [facility] [address] [id number] [address] [place] [address], [place] [address] March, [facility] [address] [id number] [address] [place] [address], [place] [address] March, [facility] [address] [id number] [address] [place] [address], [place] [address] March, [facility] [address] [id number] [address] [place] [address], [place] [address] Nov, [facility] [address] [id number] [address] [place] [address], [place] [address] Nov, [facility] [address] [id number] [address] [place] [address], [place] [address] Nov, [facility] [address] [id number] [address] [place] [address], [place] [address] Oct, [facility] [address] [id number] [address] [place] [address], [place] [address] Oct, [facility] [address] [id number] [address] [place] [address], [place] [address] Aug, [facility] [address] [id number] [address] [place] [address], [place] [address] Aug, [facility] [place] [address] [id number] [place] [id number] Jun, [facility] [address] [id number] [place] [id number] Apr, [facility] [address] [id number] [address] [place] [address], [place] [address] Apr, [facility] [address] [id number] [address] [place] [address], [place] [address] Apr, [facility] [address] [id number] [place] [id number] March, [facility] [place] [address] [id number] [place] [id number] Feb, [facility] [place] [address] [id number] [place] [id number] Jan, [facility] [address] [id number] [address] [place] [address], [place] [address] Jan, [facility] [address] [id number] [facility] [place] [address] Jan, [facility] [address] [id number] [address] [place] [address], [place] [address] Jan, [facility] [place] [address] [id number] [place] [id number] Dec, [facility] [place] [address] [id number] [place] [id number] Dec, [facility] [address] [id number] [address] [place] [address], [place] [address] Dec, [facility] [address] [id number] [address] [place] [address], [place] [address] Dec, [facility] [address] [facility] [id number] [address] [place] [address], [place] [address] Dec, [facility] [address] [facility] [id number] [address] [place] [address], [place] [address] Nov, [facility] [address] [id number] [address] [place] [address], [place] [address] Nov, [facility] [place] [address] [id number] [place] [id number] Nov, [facility] [address] [id number] [address] [place] [address], [place] [address] Nov, [facility] [place] [address] [id number] [place] [id number] Nov, [facility] [place] [address] [id number] [place] [id number] Nov, [facility] [place] [address] [id number] [place] [id number] Oct, [facility] [place] [address] [id number] [place] [id number] Oct, [facility] [address] [id number] [address] [place] [address], [place] [address] Oct, [facility] [address] [id number] [address] [place] [address] Oct, [facility] [address] [facility] [id number] [address] [place] [address] Oct, [facility] [address] [facility] [id number] [address] [place] [address] Sep, [facility] [address] [facility] [id number] [address] [place] [address] Sep, [facility] [place] [address] [id number] [place] [id number] Sep, [facility] [place] [address] [id number] [place] [id number] Sep, [facility] [address] [id number] [place] [id number] Sep, [facility] [address] [facility] [id number] [address] [place] [address] Sep, [facility] [address] [facility] [id number] [address] [place] [address] Aug, [facility] [place] [address] [id number] [place] [id number] Aug, [facility] [address] [facility] [id number] [address] [place] [address] Aug, [facility] [place] [address] [id number] [place] [id number] Jul, [facility] [place] [address] [id number] [place] [id number] Jul, [facility] [place] [address] [id number] [place] [id number] Jun, [facility] [place] [address] [id number] [place] [id number] May, [facility] [place] [address] [id number] [place] [id number] Feb, [facility] [place] [address] [id number] [place] [id number] Feb, [facility] [address] [id number] [place] [id number] Feb, [facility] [place] [address] [id number] [place] [id number] Dec, [facility] [place] [address] [id number] [place] [id number] Dec, [facility] [address] [id number] [address] [place] [address] Oct, [facility] [address] [id number] [address] [place] [address] Sep, [facility] [address] [id number] [address] [place] [address] Sep, [facility] [address] [id number] [address] [place] [address] Sep, [facility] [address] [facility] [id number] [address] [place] [address] Sep, [facility] [address] [id number] [address] [place] [address] March, [facility] [address] [id number] [address] [place] [address] Sep, [facility] [address] [facility] [id number] [address] [place] [address] Jul, [facility] [address] [id number] [address] [place] [phone] May, [facility] [address] [id number] [address] [place] [phone] Jan, [facility] [address] [facility] [id number] [address] [place] [phone] Sep, [facility] [address] [facility] [id number] [address] [place] [phone] Aug, IMMUNIZATIONS No Known Immunizations SOCIAL HISTORY Never Assessed REASON FOR VISIT PLAN OF CARE VITAL SIGNS Height 60 in 2013-05-18 Weight 120.5 lbs 2013-05-18 Temperature 98.5 degrees Fahrenheit 2013-05-18 Heart Rate 84 bpm 2013-05-18 Respiratory Rate 18 2013-05-18 Blood pressure systolic 100 mmHg 2013-05-18 Blood pressure diastolic 80 mmHg 2013-05-18 MEDICATIONS Unknown Medications RESULTS No Results PROCEDURES No Known procedures INSTRUCTIONS MEDICATIONS ADMINISTERED No Known Medications MEDICAL (GENERAL) HISTORY Type Description Date Medical History CAD Stress test 05/[address] [facility] Medical History Hypertension Medical History hyperlipidemia Medical History Degenerative disc disease Medical History depression Medical History anxiety Surgical History section x4 Surgical History Removal of bone and soft tissue arouond T4, T5 & T6 2010 Surgical History Right arm repair for nerve and muscle Surgical History Stents in heart Surgical History heart cath 03/25/16 Surgical History cholecystectomy 2013 Hospitalization History surgeries Hospitalization History stents in heart Hospitalization History Pelvic Inflammatory Disease-[facility] 09/22 Hospitalization History 2 inpatient psychiatric treatments, suicide attempts
--- OUTSIDE RECORDS SUMMARY | 2020-05-31 11:39 | XMS REPORT ---
Author Author Jeane Gonzalez Organization [facility] Address [address] [place] [address] Care Team Providers Care Position Classification Specialist Name Role Phone JANY Gonzalez Unavailable PROBLEMS Type Condition ICD9-CM Code ITX38-AY Code Onset Dates Condition S tatus SNOMED Code Problem Depression F32.9 Active 52296096 Problem Anxiety F41.9 Active 65600194 Problem Environmental allergies Z91.09 Active 033722075 Problem Atherosclerotic heart diseas e of [place] coronary 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 Active 823472723 Problem Lumbago with sciatica, unspecified side M54.40 Active 535406693 Problem Chronic pain syndrome G89.4 Active 030952739 Problem Hypercholesterolemia with hypertriglyceridemia E78 .2 Active 147770586 Problem Major depressive disorder, recurrent sev ere without psychotic features F33.2 Active 80434011 Problem Dysthymia (or depressive neurosis) F34.1 Active 57785347 Problem Cigarette nicotine dependence without complication F17.210 Active 59803044 Problem Alcohol use disorder, moderate, in sustained remission F10.21 Active 07288855 Problem Cannabis use disorder, mild, abuse F12.10 Active 94031902 Problem Elevated blood pressure I10 Active 50290299 ALLERGIES No Information ENCOUNTERS Encounter Location Date Diagnosis [facility] [address] [facility] [id number] [address] [place] [id number] Dec, [facility] [address] [facility] [id number] [address] [place] [id number] Dec, Major depressive disorder, r ecurrent severe without psychotic features F33.2 ; Chronic pain syndrome G89.4 and Encounter for immunization Z23 [facility] [address] [id number] [place] [id number] Aug, Elevated blood pressure I10 [facility] [address] [facility] [id number] [address] [place] [id number] 17 May, 2018 Hypercholesterolemia with hy pertriglyceridemia E78.2 and Atherosclerotic heart disease of [place] coronary 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 [facility] [address] [facility] [id number] [address] [place] [id number] 11 Mar, 2018 Lumbago with sciatica, unspe cified side M54.40 ; Environmental allergies Z91.09 ; Hypercholesterolemia with hypertriglyceridemia E78.2 and Atherosclerotic heart disease of [place] coronary 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 [facility] [address] [facility] [id number] [address] [place] [id number] 14 Dec, 2017 Severe episode of recurrent major depressive disorder, without psychotic features F33.2 ; Alcohol use disorder, moderate, in sustained remission F10.21 and Cannabis use disorder, mild, abuse F12.10 [place] [address] [place] [id number] [address] [place] [id number] 12 Dec, 2017 Severe episode of recurrent major depressive disorder, without psychotic features F33.2 [place] [address] [facility] [id number] [address] [place] [id number] 18 Nov, 2017 [facility] [address] [facility] [id number] [address] [place] [id number] 08 Nov, 2017 Atherosclerotic heart diseas e of [place] coronary 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 ; Hypercholesterolemia with hypertriglyceridemia E78.2 ; Depression F32.9 and Cigarette nicotine dependence without complication F17.210 [place] [address] [facility] [id number] [address] [place] [id number] Oct, [facility] [address] [facility] [id number] [address] [place] [id number] Jul, [facility] [address] [facility] [id number] [address] [place] [id number] Jun, [facility] [address] [facility] [id number] [address] [place] [id number] Apr, Pain in thoracic spine M54.6 and Lumbago with sciatica, unspecified side M54.40 [facility] [id number] [place] [id number] March, [place] [address] [address] March, Depression F32.9 [place] [address] [place] [id number] [place] [id number] March, Anxiety F41.9 ; Depression F 32.9 ; Atherosclerotic heart disease of [place] coronary 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 ; Hypercholesterolemia with hypertriglyceridemia E78.2 ; Right wrist tendonitis M77.8 and Environmental allergies Z91.09 [facility] [address] [facility] [id number] [place] [id number] Dec, [place] [id number] [address] Nov, Iron deficiency anemia, unsp ecified iron deficiency anemia type D50.9 ; Anxiety F41.9 ; Dysthymia (or depressive neurosis) F34.1 and Hypercholesterolemia with hypertriglyceridemia E78.2 [place] [address] [address] Oct, [place] [address] [address] Oct, [place] [address] [address] Oct, Dysthymia (or depressive sherice rosis) F34.1 ; Atherosclerotic heart disease of [place] coronary 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 ; Coronary atherosclerosis due to lipid rich plaque I25.83 ; Hypercholesterolemia with hypertriglyceridemia E78.2 ; Iron deficiency anemia, unspecified iron deficiency anemia type D50.9 ; Hospital discharge follow-up Z09 ; History of PID Z87.42 ; Environmental allergies Z91.09 and Dysuria R30.0 [place] [address] [place] [id number] [address] [place] [id number] Sep, [place] [address] [address] Sep, [place] [address] [address] Aug, Dysthymia F34.1 and Anxiety F41.9 [place] [address] [address] March, Coronary artery disease invo lving [place] coronary artery, angina presence unspecified, unspecified whether [place] or transplanted heart I25.10 ; Bipolar 1 disorder, depressed F31.9 ; Anxiety F41.9 and Dysthymia F34.1 [place] [address] [address] 04 Feb, 2016 Depression F32.9 and Stomach pain R10.9 [place] [address] [address] Jan, Hyperlipidemia 272.4 [place] [address] [address] 17 Dec, 2015 [place] [address] [address] Dec, Major depressive disorder, r ecurrent episode, unspecified 296.30 ; Anxiety F41.9 ; Grief F43.20 and Dysthymia F34.1 [place] [address] [address] Dec, Anxiety F41.9 and Grief F43. 20 [place] [address] [address] Oct, Insomnia, unspecified G47.00 and Anxiety F41.9 [place] [address] [address] Oct, Dysthymia F34.1 ; Right shou lder pain M25.511 ; Sciatica, right M54.31 and Iron deficiency anemia, unspecified iron deficiency anemia type D50.9 [place] [address] [address] Sep, [facility] [address] [address] Sep, Grief F43.20 [place] [address] [address] Sep, [place] [address] [address] Sep, [place] [address] [address] Sep, Hyperlipidemia E78.5 ; CAD ( coronary artery disease) I25.10 and HTN (hypertension) I10 [place] [address] [address] Aug, Allergic rhinitis, unspecifi ed allergic rhinitis type J30.9 [place] [address] [address] Aug, Left-sided low back pain wit h right-sided sciatica M54.41 and Hyperlipidemia, unspecified hyperlipidemia E78.5 [place] [address] [address] Aug, Neck pain M54.2 and Low back pain M54.5 [place] [address] [address] Jun, [place] [address] [address] Jun, [place] [address] [address] Jun, CAD (coronary artery disease ) 414.00 ; Hyperlipidemia 272.4 and Anemia 285.9 [place] [address] [address] Feb, [facility] [address] [address] Feb, [facility] [address] [id number] [address] [place] [address], [place] [id number] Jan, [facility] [address] [id number] [address] [place] [address], [place] [address] Jan, [facility] [address] [id number] [address] [place] [address], [place] [address] Jan, [facility] [address] [id number] [address] [place] [address], [place] [id number] 16 Jan, 2015 [facility] [address] [id number] [address] [place] [address], [place] [id number] Dec, 2014 [facility] [address] [id number] [address] [place] [address], [place] [id number] Dec, 2014 [facility] [address] [id number] [address] [place] [address], [place] [id number] Dec, 2014 [facility] [address] [id number] [address] [place] [address], [place] [id number] Dec, 2014 [facility] [address] [id number] [address] [place] [address], [place] [id number] Dec, 2014 [facility] [address] [id number] [address] [place] [address], [place] [id number] Dec, 2014 [facility] [address] [id number] [address] [place] [address], [place] [id number] 13 Dec, 2014 [facility] [address] [id number] [address] [place] [id number] 13 Dec, 2014 [facility] [address] [id number] [address] [place] [address], [place] [id number] 12 Dec, 2014 [facility] [address] [id number] [address] [place] [id number] 11 Dec, 2014 [facility] [address] [id number] [address] [place] [id number] Dec, [facility] [address] [id number] [address] [place] [address], [place] [id number] Dec, [facility] [address] [id number] [address] [place] [address], [place] [id number] Nov, [facility] [address] [id number] [address] [place] [address], [place] [id number] Nov, [facility] [address] [id number] [address] [place] [address], [place] [id number] Nov, [facility] [address] [id number] [address] [place] [address], [place] [address] Nov, [facility] [address] [id number] [address] [place] [address], [place] [id number] Oct, [facility] [address] [id number] [address] [place] [address], [place] [id number] Oct, [facility] [address] [id number] [address] [place] [id number] Sep, [facility] [address] [id number] [address] [place] [address], [place] [id number] Sep, [facility] [address] [id number] [address] [place] [id number] Aug, [facility] [address] [id number] [address] [place] [id number] Aug, [facility] [address] [id number] [address] [place] [id number] 30 Jul, 2014 [facility] [address] [id number] [address] [place] [address], [place] [id number] 30 Jul, 2014 [facility] [address] [id number] [address] [place] [address], [place] [id number] 16 Jul, 2014 [facility] [address] [id number] [address] [place] [id number] 16 Jul, 2014 [facility] [address] [id number] [address] [place] [id number] 15 Jul, 2013 [facility] [address] [id number] [facility] [place] [id number] 12 Jul, 2013 [facility] [address] [id number] [facility] [place] [id number] 12 Jul, 2013 [facility] [address] [id number] [facility] [place] [id number] 11 Jul, 2013 [facility] [address] [id number] [address] [place] [address], [place] [id number] 11 Jul, 2013 [facility] [address] [id number] [address] [place] [address], [place] [id number] 10 Jul, 2014 [facility] [address] [id number] [address] [place] [address], [place] [id number] 10 Jul, 2013 [facility] [address] [id number] [address] [place] [address], [place] [id number] Jul, 2013 [facility] [address] [id number] [address] [place] [address], [place] [id number] Jul, 2013 [facility] [address] [id number] [address] [place] [address], [place] [id number] Jun, [facility] [address] [id number] [address] [place] [address], [place] [id number] Jun, [facility] [address] [id number] [address] [place] [address], [place] [id number] Jun, [facility] [address] [id number] [address] [place] [address], [place] [id number] Jun, [facility] [address] [id number] [address] [place] [address], [place] [id number] Jun, [facility] [address] [id number] [address] [place] [address], [place] [id number] Jun, [facility] [address] [id number] [address] [place] [address], [place] [id number] 16 Jun, 2014 [facility] [address] [id number] [facility] [place] [id number] Jun, [facility] [address] [id number] [facility] [place] [id number] May, [facility] [address] [id number] [facility] [place] [address] May, [facility] [address] [id number] [address] [place] [address], [place] [id number] Apr, [facility] [address] [id number] [facility] [place] [id number] Apr, [facility] [address] [id number] [address] [place] [address], [place] [id number] Apr, [facility] [address] [id number] [address] [place] [address], [place] [id number] Apr, [facility] [address] [id number] [address] [place] [address], [place] [id number] March, [facility] [address] [id number] [address] [place] [address], [place] [id number] March, [facility] [address] [id number] [address] [place] [address], [place] [id number] March, [facility] [address] [id number] [address] [place] [address], [place] [id number] March, [facility] [address] [id number] [address] [place] [address], [place] [id number] March, [facility] [address] [id number] [address] [place] [address], [place] [id number] March, [facility] [address] [id number] [address] [place] [address], [place] [id number] March, [facility] [address] [id number] [address] [place] [address], [place] [id number] March, [facility] [address] [id number] [address] [place] [address] [address] March, [facility] [address] [id number] [address] [place] [address], [place] [id number] March, [facility] [address] [id number] [address] [place] [address], [place] [id number] March, [facility] [address] [id number] [address] [place] [address], [place] [id number] Nov, [facility] [address] [id number] [address] [place] [address], [place] [address] Nov, [facility] [address] [id number] [address] [place] [address], [place] [id number] Nov, [facility] [address] [id number] [address] [place] [address], [place] [address] Oct, [facility] [address] [id number] [address] [place] [address], [place] [id number] Oct, [facility] [address] [id number] [address] [place] [address], [place] [id number] Aug, [facility] [address] [id number] [address] [place] [address], [place] [address] Aug, [facility] [place] [address] [id number] [place] [id number] Jun, [facility] [place] [address] [id number] [place] [id number] Apr, [facility] [address] [id number] [address] [place] [id number] Apr, [facility] [address] [id number] [address] [place] [address], [place] [address] Apr, [facility] [place] [address] [id number] [place] [id number] March, [facility] [place] [address] [id number] [place] [id number] Feb, [facility] [place] [address] [id number] [place] [id number] Jan, [facility] [address] [id number] [address] [place] [id number] Jan, [facility] [address] [facility] [id number] [address] [place] [id number] Jan, [facility] [address] [facility] [id number] [address] [place] [id number] Jan, [facility] [place] [address] [id number] [place] [id number] Dec, [facility] [place] [address] [id number] [place] [id number] Dec, [facility] [address] [facility] [id number] [address] [place] [address], [place] [address] Dec, [facility] [address] [facility] [id number] [address] [place] [id number] Dec, [facility] [address] [facility] [id number] [address] [place] [id number] Dec, [facility] [address] [facility] [id number] [address] [place] [id number] Nov, [facility] [address] [facility] [id number] [address] [place] [id number] Nov, [facility] [place] [address] [id number] [place] [id number] Nov, [facility] [address] [facility] [id number] [address] [place] [id number] Nov, [facility] [place] [address] [id number] [place] [id number] Nov, [facility] [place] [address] [id number] [place] [id number] Nov, [facility] [place] [address] [id number] [place] [id number] Oct, [facility] [place] [address] [id number] [place] [id number] Oct, [facility] [address] [id number] [address] [place] [id number] Oct, [facility] [address] [facility] [id number] [address] [place] [id number] Oct, [facility] [address] [facility] [id number] [address] [place] [id number] Oct, [facility] [address] [facility] [id number] [address] [place] [id number] Sep, [facility] [address] [facility] [id number] [address] [place] [id number] Sep, [facility] [place] [address] [id number] [place] [id number] Sep, [facility] [place] [address] [id number] [place] [id number] Sep, [facility] [place] [address] [id number] [place] [id number] Sep, [facility] [address] [facility] [id number] [address] [place] [id number] Sep, [facility] [address] [facility] [id number] [address] [place] [id number] Aug, [facility] [place] [address] [id number] [place] [id number] Aug, [facility] [address] [facility] [id number] [address] [place] [id number] Aug, [facility] [place] [address] [id number] [place] [id number] Jul, [facility] [place] [address] [id number] [place] [id number] Jul, [facility] [place] [address] [id number] [place] [id number] Jun, [facility] [place] [address] [id number] [place] [id number] May, [facility] [place] [address] [id number] [place] [id number] Feb, [facility] [address] [id number] [place] [id number] Feb, [facility] [address] [id number] [place] [id number] Feb, [facility] [address] [id number] [place] [id number] Dec, [facility] [place] [address] [id number] [place] [id number] Dec, [facility] [address] [id number] [address] [place] [id number] Oct, [facility] [address] [id number] [address] [place] [id number] Sep, [facility] [address] [id number] [address] [place] [id number] Sep, [facility] [address] [facility] [id number] [address] [place] [phone] Sep, [facility] [address] [id number] [address] [place] [id number] Sep, [facility] [address] [facility] [id number] [address] [place] [id number] March, [facility] [address] [facility] [id number] [address] [place] [id number] Sep, [facility] [address] [facility] [id number] [address] [place] [id number] Jul, [facility] [address] [id number] [address] [place] [id number] May, [facility] [address] [id number] [address] [place] [phone] Jan, [facility] [address] [facility] [id number] [address] [place] [id number] Sep, [facility] [address] [facility] [id number] [address] [place] [id number] 14 Aug, 2009 IMMUNIZATIONS No Known Immunizations SOCIAL HISTORY Never Assessed REASON FOR VISIT PLAN OF CARE VITAL SIGNS MEDICATIONS Unknown Medications RESULTS No Results PROCEDURES [...] History heart cath 03/25/16 Surgical History cholecystectomy 2014 Hospitalization History surgeries Hospitalization History stents in heart Hospitalization History Pelvic Inflammatory Disease-[facility] 09/22 Hospitalization History 2 inpatient psychiatric treatments, suicide attempts
--- OUTSIDE RECORDS SUMMARY | 2020-05-31 11:39 | XMS REPORT ---
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 Active 626035822 Problem Lumbago with sciatica, unspecified side M54.40 Active 069835543 Problem Chronic pain syndrome G89.4 Active 658068198 Problem Hypercholesterolemia with hypertriglyceridemia E78 .2 Active 098635534 Problem Major depressive disorder, recurrent sev ere without psychotic features F33.2 Active 47414198 Problem Dysthymia (or depressive neurosis) F34.1 Active 78885405 Problem Cigarette nicotine dependence without complication F17.210 Active 94470296 Problem Alcohol use disorder, moderate, in sustained remission F10.21 Active 34202623 Problem Cannabis use disorder, mild, abuse F12.10 Active 75868308 Problem Elevated blood pressure I10 Active 74289958 ALLERGIES No Information ENCOUNTERS Encounter Location Date Diagnosis [facility] [address] [facility] [id number] [address] [place] [address] Dec, [facility] [address] [place] [id number] [address] [place] [address] Dec, Major depressive disorder, r ecurrent severe without psychotic features F33.2 ; Chronic pain syndrome G89.4 and Encounter for immunization Z23 [facility] [address] [id number] [place] [id number] Aug, Elevated blood pressure I10 [facility] [address] [facility] [id number] [address] [place] [address] May, Hypercholesterolemia with hy pertriglyceridemia E78.2 and Atherosclerotic heart disease of havasupai coronary 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 [place] [address] [facility] [id number] [address] [place] [address] 11 Mar, 2018 Lumbago with sciatica, unspe cified side M54.40 ; Environmental allergies Z91.09 ; Hypercholesterolemia with hypertriglyceridemia E78.2 and Atherosclerotic heart disease of havasupai coronary 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 [place] [address] [place] [id number] [address] [place] [address] 14 Dec, 2017 Severe episode of recurrent major depressive disorder, without psychotic features F33.2 ; Alcohol use disorder, moderate, in sustained remission F10.21 and Cannabis use disorder, mild, abuse F12.10 [place] [address] [place] [id number] [address] [place] [address] 12 Dec, 2017 Severe episode of recurrent major depressive disorder, without psychotic features F33.2 [place] [address] [place] [id number] [address] [place] [id number] 18 Nov, 2017 [place] [address] [facility] [id number] [address] [place] [address] 08 Nov, 2017 Atherosclerotic heart diseas e of havasupai coronary 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 ; Hypercholesterolemia with hypertriglyceridemia E78.2 ; Depression F32.9 and Cigarette nicotine dependence without complication F17.210 [place] [address] [place] [id number] [address] [place] [address] Oct, [place] [address] [facility] [id number] [address] [place] [address] Jul, [place] [address] [facility] [id number] [address] [place] [address] Jun, [place] [address] [place] [id number] [address] [place] [address] Apr, Pain in thoracic spine M54.6 and Lumbago with sciatica, unspecified side M54.40 [place] [address] [facility] [id number] [address] [place] [address] March, [place] [address] [place] [id number] [address] [place] [address] March, Depression F32.[address] [address] March, Anxiety F41.9 ; Depression F 32.9 ; Atherosclerotic heart disease of havasupai coronary 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 ; Hypercholesterolemia with hypertriglyceridemia E78.2 ; Right wrist tendonitis M77.8 and Environmental allergies Z91.09 [facility] [address] [facility] [id number] [place] [id number] Dec, [place] [address] [address] Nov, Iron deficiency anemia, unsp ecified iron deficiency anemia type D50.9 ; Anxiety F41.9 ; Dysthymia (or depressive neurosis) F34.1 and Hypercholesterolemia with hypertriglyceridemia E78.[address] [address] Oct, [address] [address] Oct, [address] [address] Oct, Dysthymia (or depressive sherice rosis) F34.1 ; Atherosclerotic heart disease of havasupai coronary 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 ; Coronary atherosclerosis due to lipid rich plaque I25.83 ; Hypercholesterolemia with hypertriglyceridemia E78.2 ; Iron deficiency anemia, unspecified iron deficiency anemia type D50.9 ; Hospital discharge follow-up Z09 ; History of PID Z87.42 ; Environmental allergies Z91.09 and Dysuria R30.[address] [address] Sep, [address] [address] Sep, [address] [place] [address] 10 Aug, 2016 Dysthymia F34.1 and Anxiety F41.9 [place] [address] [place] [id number] 05 Mar, 2016 Coronary artery disease invo lving havasupai coronary artery, angina presence unspecified, unspecified whether havasupai or transplanted heart I25.10 ; Bipolar 1 disorder, depressed F31.9 ; Anxiety F41.9 and Dysthymia F34.1 [place] [address] [address] 04 Feb, 2016 Depression F32.9 and Stomach pain R10.9 [place] [address] [address] Jan, Hyperlipidemia 272.4 [place] [address] [address] 17 Dec, 2015 [place] [address] [address] 11 Dec, 2015 Major depressive disorder, r ecurrent episode, unspecified 296.30 ; Anxiety F41.9 ; Grief F43.20 and Dysthymia F34.1 [place] [address] [address] 11 Dec, 2015 Anxiety F41.9 and Grief F43. 20 [place] [address] [address] Oct, Insomnia, unspecified G47.00 and Anxiety F41.9 [place] [address] [address] Oct, Dysthymia F34.1 ; Right shou lder pain M25.511 ; Sciatica, right M54.31 and Iron deficiency anemia, unspecified iron deficiency anemia type D50.9 [place] [address] [address] Sep, [place] [address] [address] Sep, Grief F43.20 [facility] [address] [address] Sep, [facility] [address] [address] Sep, [facility] [address] [address] Sep, Hyperlipidemia E78.5 ; CAD ( coronary artery disease) I25.10 and HTN (hypertension) I10 [place] [address] [address] Aug, Allergic rhinitis, unspecifi ed allergic rhinitis type J30.9 [place] [address] [address] Aug, Left-sided low back pain wit h right-sided sciatica M54.41 and Hyperlipidemia, unspecified hyperlipidemia E78.5 [place] [address] [address] Aug, Neck pain M54.2 and Low back pain M54.5 [facility] [address] [address] Jun, [facility] [address] [address] Jun, [facility] [address] [address] Jun, CAD (coronary artery disease ) 414.00 ; Hyperlipidemia 272.4 and Anemia 285.9 [facility] [address] [address] Feb, [facility] [address] [address] Feb, [facility] [address] [address] Jan, [facility] [address] [id number] [address] [place] [address], [place] [address] Jan, [facility] [address] [id number] [address] [place] [address], [place] [address] Jan, [facility] [address] [id number] [address] [place] [address], [place] [address] Jan, [facility] [address] [id number] [address] [place] [address], [place] [address] Dec, 2014 [facility] [address] [id number] [address] [place] [address], [place] [address] Dec, 2014 [facility] [address] [id number] [address] [place] [address], [place] [address] Dec, 2014 [facility] [address] [id number] [address] [place] [address], [place] [address] Dec, 2014 [facility] [address] [id number] [address] [place] [address], [place] [address] Dec, 2014 [facility] [address] [id number] [address] [place] [address], [place] [address] Dec, 2014 [facility] [address] [id number] [address] [place] [address], [place] [address] Dec, 2014 [facility] [address] [id number] [address] [place] [address], [place] [address] Dec, 2014 [facility] [address] [id number] [address] [place] [address] 12 Dec, 2014 [facility] [address] [id number] [address] [place] [address], [place] [address] Dec, 2014 [facility] [address] [id number] [address] [place] [address] 05 Dec, 2014 [facility] [address] [id number] [address] [place] [address] Dec, [facility] [address] [id number] [address] [place] [address], [place] [address] Nov, [facility] [address] [id number] [address] [place] [address], [place] [address] Nov, [facility] [address] [id number] [address] [place] [address], [place] [address] Nov, [facility] [address] [id number] [address] [place] [address], [place] [address] Nov, [facility] [address] [id number] [address] [place] [address], [place] [address] Oct, [facility] [address] [id number] [address] [place] [address], [place] [address] Oct, [facility] [address] [id number] [address] [place] [address], [place] [address] Sep, [facility] [address] [id number] [address] [place] [address], [place] [address] Sep, [facility] [address] [id number] [address] [place] [address], [place] [address] Aug, [facility] [address] [id number] [address] [place] [address], [place] [address] Aug, [facility] [address] [id number] [address] [place] [address], [place] [address] 30 Jul, 2014 [facility] [address] [id number] [address] [place] [address] 30 Jul, 2013 [facility] [address] [id number] [address] [place] [address], [place] [address] 16 Jul, 2014 [facility] [address] [id number] [address] [place] [address], [place] [address] 16 Jul, 2014 [facility] [address] [id number] [address] [place] [address], [place] [address] 15 Jul, 2014 [facility] [address] [id number] [address] [place] [address] 12 Jul, 2014 [facility] [address] [id number] [facility] [place] [address] 12 Jul, 2014 [facility] [address] [id number] [address] [place] [address], [place] [address] Jul, [facility] [address] [id number] [address] [place] [address], [place] [address] Jul, [facility] [address] [id number] [address] [place] [address], [place] [address] Jul, [facility] [address] [id number] [address] [place] [address], [place] [address] Jul, [facility] [address] [id number] [address] [place] [address], [place] [address] Jul, [facility] [address] [id number] [address] [place] [address], [place] [address] Jul, [facility] [address] [id number] [address] [place] [address], [place] [address] Jun, [facility] [address] [id number] [address] [place] [address], [place] [address] Jun, [facility] [address] [id number] [address] [place] [address], [place] [address] Jun, [facility] [address] [id number] [address] [place] [address], [place] [address] Jun, [facility] [address] [id number] [address] [place] [address], [place] [address] Jun, [facility] [address] [id number] [address] [place] [address], [place] [address] Jun, [facility] [address] [id number] [address] [place] [address], [place] [address] Jun, [facility] [address] [id number] [address] [place] [address], [place] [address] Jun, [facility] [address] [id number] [facility] [place] [address] May, [facility] [address] [id number] [facility] [place] [address] May, [facility] [address] [id number] [facility] [place] [address] Apr, [facility] [address] [id number] [address] [place] [address], [place] [address] Apr, [facility] [address] [id number] [facility] [place] [address] Apr, [facility] [address] [id number] [address] [place] [address], [place] [address] Apr, [facility] [address] [id number] [address] [place] [address], [place] [address] March, [facility] [address] [id number] [address] [place] [address], [place] [address] March, [facility] [address] [id number] [address] [place] [address], [place] [address] March, [facility] [address] [id number] [address] [place] [address], [place] [address] March, [facility] [address] [id number] [address] [place] [address], [place] [address] March, [facility] [address] [id number] [address] [place] [address], [place] [address] March, [facility] [address] [id number] [address] [place] [address], [place] [address] March, [facility] [address] [id number] [address] [place] [address], [place] [address] March, [facility] [address] [id number] [address] [place] [address], [place] [address] March, [facility] [address] [id number] [address] [place] [address], [place] [address] March, [facility] [address] [id number] [address] [place] [address], [place] [address] March, [facility] [address] [id number] [address] [place] [address], [place] [address] Nov, [facility] [address] [id number] [address] [place] [address], [place] [address] Nov, [facility] [address] [id number] [address] [place] [address], [place] [address] Nov, [facility] [address] [id number] [address] [place] [address], [place] [address] Oct, [facility] [address] [id number] [address] [place] [address], [place] [address] Oct, [facility] [address] [id number] [address] [place] [address], [place] [address] Aug, [facility] [address] [id number] [address] [place] [address], [place] [address] Aug, [facility] [place] [address] [id number] [place] [id number] Jun, [facility] [address] [id number] [place] [id number] Apr, [facility] [address] [id number] [address] [place] [address], [place] [address] Apr, [facility] [address] [id number] [address] [place] [address], [place] [address] Apr, [facility] [address] [id number] [place] [id number] March, [facility] [place] [address] [id number] [place] [id number] Feb, [facility] [place] [address] [id number] [place] [id number] Jan, [facility] [address] [id number] [address] [place] [address], [place] [address] Jan, [facility] [address] [id number] [facility] [place] [address] Jan, [facility] [address] [id number] [address] [place] [address], [place] [address] Jan, [facility] [place] [address] [id number] [place] [id number] Dec, [facility] [place] [address] [id number] [place] [id number] Dec, [facility] [address] [id number] [address] [place] [address], [place] [address] Dec, [facility] [address] [id number] [address] [place] [address], [place] [address] Dec, [facility] [address] [facility] [id number] [address] [place] [address], [place] [address] Dec, [facility] [address] [facility] [id number] [address] [place] [address], [place] [address] Nov, [facility] [address] [id number] [address] [place] [address], [place] [address] Nov, [facility] [place] [address] [id number] [place] [id number] Nov, [facility] [address] [id number] [address] [place] [address], [place] [address] Nov, [facility] [place] [address] [id number] [place] [id number] Nov, [facility] [place] [address] [id number] [place] [id number] Nov, [facility] [address] [id number] [place] [id number] Oct, [facility] [place] [address] [id number] [place] [id number] Oct, [facility] [address] [id number] [address] [place] [address], [place] [address] Oct, [facility] [address] [id number] [address] [place] [address] Oct, [facility] [address] [facility] [id number] [address] [place] [address] Oct, [facility] [address] [facility] [id number] [address] [place] [address] Sep, [facility] [address] [facility] [id number] [address] [place] [address] Sep, [facility] [place] [address] [id number] [place] [id number] Sep, [facility] [address] [id number] [place] [id number] Sep, [facility] [address] [id number] [place] [id number] Sep, [facility] [address] [facility] [id number] [address] [place] [address] Sep, [facility] [address] [facility] [id number] [address] [place] [address] Aug, [facility] [place] [address] [id number] [place] [id number] Aug, [facility] [address] [facility] [id number] [address] [place] [address] Aug, [facility] [place] [address] [id number] [place] [id number] Jul, [facility] [place] [address] [id number] [place] [id number] Jul, [facility] [place] [address] [id number] [place] [id number] Jun, [facility] [place] [address] [id number] [place] [id number] May, [facility] [place] [address] [id number] [place] [id number] Feb, [facility] [place] [address] [id number] [place] [id number] Feb, [facility] [address] [id number] [place] [id number] Feb, [facility] [address] [id number] [place] [id number] Dec, [facility] [address] [id number] [place] [id number] Dec, [facility] [address] [facility] [id number] [address] [place] [address] Oct, [facility] [address] [id number] [address] [place] [address] Sep, [facility] [address] [id number] [address] [place] [address] Sep, [facility] [address] [facility] [id number] [address] [place] [phone] Sep, [facility] [address] [facility] [id number] [address] [place] [phone] Sep, [facility] [address] [facility] [id number] [address] [place] [phone] March, [facility] [address] [facility] [id number] [address] [place] [phone] Sep, [facility] [address] [facility] [id number] [address] [place] [id number] Jul, [facility] [address] [facility] [id number] [address] [place] [id number] May, [facility] [address] [facility] [id number] [address] [place] [phone] Jan, [facility] [address] [facility] [id number] [address] [place] [phone] Sep, [facility] [address] [facility] [id number] [address] [place] [id number] Aug, IMMUNIZATIONS No Known Immunizations SOCIAL HISTORY [...]
--- OUTSIDE RECORDS SUMMARY | 2020-05-31 11:40 | XMS REPORT ---
Author Author Jeane WOLFF Organization [facility] Address [address] [place] [address] Care Team Providers Care House Painting Instructor Name Role Phone NIKA WOLFF Unavailable PROBLEMS Type Condition ICD9-CM Code FPF19-QX Code Onset Dates Condition S tatus SNOMED Code Problem Depression F32.9 Active 61270151 Problem Anxiety F41.9 Active 52308127 Problem Environmental allergies Z91.09 Active 069864374 Problem Atherosclerotic heart diseas e of [place] coronary 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 Active 538940862 Problem Lumbago with sciatica, unspecified side M54.40 Active 186726053 Problem Chronic pain syndrome G89.4 Active 857612060 Problem Hypercholesterolemia with hypertriglyceridemia E78 .2 Active 090851333 Problem Major depressive disorder, recurrent sev ere without psychotic features F33.2 Active 65892025 Problem Dysthymia (or depressive neurosis) F34.1 Active 70909570 Problem Cigarette nicotine dependence without complication F17.210 Active 15793856 Problem Alcohol use disorder, moderate, in sustained remission F10.21 Active 02459897 Problem Cannabis use disorder, mild, abuse F12.10 Active 56594683 Problem Elevated blood pressure I10 Active 15567791 ALLERGIES No Information ENCOUNTERS Encounter Location Date Diagnosis [facility] [address] [facility] [id number] [address] [place] [id number] Dec, [facility] [address] [facility] [id number] [address] [place] [id number] Dec, Major depressive disorder, r ecurrent severe without psychotic features F33.2 ; Chronic pain syndrome G89.4 and Encounter for immunization Z23 [facility] [address] [id number] [id number] Aug, Elevated blood pressure I10 [facility] [address] [facility] [id number] [address] [place] [id number] 17 May, 2018 Hypercholesterolemia with hy pertriglyceridemia E78.2 and Atherosclerotic heart disease of [place] coronary 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 [facility] [address] [facility] [id number] [address] [place] [id number] 11 Mar, 2018 Lumbago with sciatica, unspe cified side M54.40 ; Environmental allergies Z91.09 ; Hypercholesterolemia with hypertriglyceridemia E78.2 and Atherosclerotic heart disease of [place] coronary 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 [facility] [address] [facility] [id number] [address] [place] [id number] 14 Dec, 2017 Severe episode of recurrent major depressive disorder, without psychotic features F33.2 ; Alcohol use disorder, moderate, in sustained remission F10.21 and Cannabis use disorder, mild, abuse F12.10 [facility] [address] [place] [id number] [address] [place] [id number] 12 Dec, 2017 Severe episode of recurrent major depressive disorder, without psychotic features F33.2 [facility] [address] [facility] [id number] [address] [place] [id number] 18 Nov, 2017 [facility] [address] [facility] [id number] [address] [place] [id number] 08 Nov, 2017 Atherosclerotic heart diseas e of [place] coronary 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 ; Hypercholesterolemia with hypertriglyceridemia E78.2 ; Depression F32.9 and Cigarette nicotine dependence without complication F17.210 [facility] [address] [facility] [id number] [address] [place] [address] Oct, [facility] [address] [id number] [address] [place] [id number] Jul, [facility] [address] [facility] [id number] [address] [place] [id number] Jun, [facility] [address] [facility] [id number] [address] [place] [id number] Apr, Pain in thoracic spine M54.6 and Lumbago with sciatica, unspecified side M54.40 [place] [address] [address] [facility] [id number] [address] [place] [address] March, [place] [address] [address] March, Depression F32.9 [place] [address] [address] [place] [id number] [address] [place] [address] March, Anxiety F41.9 ; Depression F 32.9 ; Atherosclerotic heart disease of [place] coronary 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 ; Hypercholesterolemia with hypertriglyceridemia E78.2 ; Right wrist tendonitis M77.8 and Environmental allergies Z91.09 [place] [address] [facility] [id number] [place] [id number] Dec, [place] [address] [address] Nov, Iron deficiency anemia, unsp ecified iron deficiency anemia type D50.9 ; Anxiety F41.9 ; Dysthymia (or depressive neurosis) F34.1 and Hypercholesterolemia with hypertriglyceridemia E78.2 [place] [address] [place] [id number] [address] [place] [phone] Oct, [place] [address] [address] Oct, [place] [address] [place] [id number] [address] [place] [address] Oct, Dysthymia (or depressive sherice rosis) F34.1 ; Atherosclerotic heart disease of [place] coronary 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 ; Coronary atherosclerosis due to lipid rich plaque I25.83 ; Hypercholesterolemia with hypertriglyceridemia E78.2 ; Iron deficiency anemia, unspecified iron deficiency anemia type D50.9 ; Hospital discharge follow-up Z09 ; History of PID Z87.42 ; Environmental allergies Z91.09 and Dysuria R30.0 [place] [address] [place] [id number] [address] [place] [address] Sep, [place] [address] [address] Sep, [place] [address] [address] Aug, Dysthymia F34.1 and Anxiety F41.9 [place] [address] [address] March, Coronary artery disease invo lving [place] coronary artery, angina presence unspecified, unspecified whether [place] or transplanted heart I25.10 ; Bipolar 1 disorder, depressed F31.9 ; Anxiety F41.9 and Dysthymia F34.1 [place] [address] [address] 04 Feb, 2016 Depression F32.9 and Stomach pain R10.9 [place] [address] [address] Jan, Hyperlipidemia 272.4 [place] [address] [address] 17 Dec, 2015 [place] [address] [address] 11 Dec, 2015 Major depressive disorder, r ecurrent episode, unspecified 296.30 ; Anxiety F41.9 ; Grief F43.20 and Dysthymia F34.1 [place] [address] [address] Dec, Anxiety F41.9 and Grief F43. 20 [place] [address] [address] Oct, Insomnia, unspecified G47.00 and Anxiety F41.9 [place] [address] [address] Oct, Dysthymia F34.1 ; Right shou lder pain M25.511 ; Sciatica, right M54.31 and Iron deficiency anemia, unspecified iron deficiency anemia type D50.9 [place] [address] [address] Sep, [facility] [address] [address] Sep, Grief F43.20 [facility] [address] [address] Sep, [facility] [address] [address] 05 Sep, 2015 [facility] [address] [address] Sep, Hyperlipidemia E78.5 ; CAD ( coronary artery disease) I25.10 and HTN (hypertension) I10 [place] [address] [address] Aug, Allergic rhinitis, unspecifi ed allergic rhinitis type J30.9 [place] [address] [address] Aug, Left-sided low back pain wit h right-sided sciatica M54.41 and Hyperlipidemia, unspecified hyperlipidemia E78.5 [place] [address] [address] Aug, Neck pain M54.2 and Low back pain M54.5 [place] [address] [address] Jun, [facility] [address] [address] Jun, [facility] [address] [address] Jun, CAD (coronary artery disease ) 414.00 ; Hyperlipidemia 272.4 and Anemia 285.9 [facility] [address] [address] 14 Feb, 2015 [facility] [address] [address] Feb, [facility] [address] [id number] [address] [place] [address], [place] [address] Jan, [facility] [place] [facility] [address] [id number] [address] [place] [address], [place] [address] Jan, [facility] [place] [facility] [address] [id number] [address] [place] [address], [place] [address] Jan, [facility] [place] [facility] [address] [id number] [address] [place] [address], [place] [address] 16 Jan, 2015 [facility] [address] [id number] [address] [place] [address], [place] [address] Dec, [facility] [address] [id number] [address] [place] [address], [place] [address] Dec, 2014 [facility] [address] [id number] [address] [place] [address], [place] [address] Dec, 2014 [facility] [place] [facility] [address] [id number] [address] [place] [address], [place] [address] Dec, 2014 [facility] [address] [id number] [address] [place] [address], [place] [address] Dec, 2014 [facility] [address] [id number] [address] [place] [address], [place] [address] Dec, 2014 [facility] [address] [id number] [address] [place] [address], [place] [address] Dec, 2014 [facility] [place] [facility] [address] [id number] [address] [place] [address], [place] [address] 13 Dec, 2014 [facility] [place] [facility] [address] [id number] [address] [place] [address], [place] [address] 12 Dec, 2014 [facility] [place] [facility] [address] [id number] [address] [place] [address], [place] [address] Dec, 2014 [facility] [place] [facility] [address] [id number] [address] [place] [address], [place] [address] 05 Fe2014 [facility] [place] [facility] [address] [id number] [address] [place] [address], [place] [address] Dec, [facility] [address] [id number] [address] [place] [address], [place] [address] Nov, [facility] [address] [id number] [address] [place] [address], [place] [address] Nov, [facility] [address] [id number] [address] [place] [address], [place] [address] Nov, [facility] [address] [id number] [address] [place] [address], [place] [address] Nov, [facility] [address] [id number] [address] [place] [address], [place] [address] Oct, [facility] [address] [id number] [address] [place] [address], [place] [address] Oct, [facility] [address] [id number] [address] [place] [address], [place] [address] Sep, [facility] [address] [id number] [address] [place] [address], [place] [address] Sep, [facility] [address] [id number] [address] [place] [address], [place] [address] Aug, [facility] [address] [id number] [address] [place] [address], [place] [address] Aug, [facility] [address] [id number] [address] [place] [address], [place] [address] 30 Jul, 2014 [facility] [address] [id number] [address] [place] [address], [place] [address] 30 Jul, 2014 [facility] [address] [id number] [address] [place] [address], [place] [address] 16 Jul, 2014 [facility] [address] [id number] [address] [place] [address], [place] [address] 16 Jul, 2014 [facility] [address] [id number] [address] [place] [address], [place] [address] 15 Jul, 2013 [facility] [place] [address] [id number] [facility] [address] 12 Jul, 2014 [facility] [place] [facility] [address] [id number] [facility] [address] 12 Jul, 2014 [facility] [place] [facility] [address] [id number] [facility] [address] 11 Jul, 2014 [facility] [place] [facility] [address] [id number] [address] [place] [address], [place] [address] 11 Jul, 2013 [facility] [place] [facility] [address] [id number] [address] [place] [address], [place] [address] 10 Jul, 2014 [facility] [place] [facility] [address] [id number] [address] [place] [address], [place] [address] 10 Jul, 2014 [facility] [place] [facility] [address] [id number] [address] [place] [address], [place] [address] Jul, [facility] [place] [facility] [address] [id number] [address] [place] [address], [place] [address] Jul, [facility] [place] [facility] [address] [id number] [address] [place] [address], [place] [address] Jun, [facility] [place] [facility] [address] [id number] [address] [place] [address], [place] [address] Jun, [facility] [place] [facility] [address] [id number] [address] [place] [address], [place] [address] Jun, [facility] [place] [facility] [address] [id number] [address] [place] [address], [place] [address] Jun, [facility] [place] [facility] [address] [id number] [address] [place] [address], [place] [address] Jun, [facility] [place] [facility] [address] [id number] [address] [place] [address], [place] [address] Jun, [facility] [place] [facility] [address] [id number] [address] [place] [address], [place] [address] Jun, [facility] [place] [facility] [address] [id number] [facility] [address] Jun, [facility] [address] [id number] [facility] [address] May, [facility] [address] [id number] [facility] [address] May, [facility] [address] [id number] [address] [place] [address], [place] [address] Apr, [facility] [address] [id number] [address] [place] [address], [place] [address] Apr, [facility] [address] [id number] [address] [place] [address], [place] [address] Apr, [facility] [address] [id number] [address] [place] [address], [place] [address] Apr, [facility] [address] [id number] [address] [place] [address], [place] [address] March, [facility] [address] [id number] [address] [place] [address], [place] [address] March, [facility] [address] [id number] [address] [place] [address], [place] [address] March, [facility] [address] [id number] [address] [place] [address], [place] [address] March, [facility] [address] [id number] [address] [place] [address], [place] [address] March, [facility] [address] [id number] [address] [place] [address], [place] [address] March, [facility] [address] [id number] [address] [place] [address], [place] [address] March, [facility] [address] [id number] [address] [place] [address], [place] [address] March, [facility] [address] [id number] [address] [place] [address], [place] [address] March, [facility] [address] [id number] [address] [place] [address], [place] [address] March, [facility] [address] [id number] [address] [place] [address], [place] [address] March, [facility] [address] [id number] [address] [place] [address], [place] [address] Nov, [facility] [address] [id number] [address] [place] [address], [place] [address] Nov, [facility] [address] [id number] [address] [place] [address], [place] [address] Nov, [facility] [address] [id number] [address] [place] [address], [place] [address] Oct, [facility] [address] [id number] [address] [place] [address], [place] [address] Oct, [facility] [address] [id number] [address] [place] [address], [place] [address] Aug, [facility] [address] [id number] [address] [place] [address], [place] [address] Aug, [facility] [place] [address] [id number] [place] [id number] Jun, [facility] [place] [address] [id number] [place] [id number] Apr, [facility] [address] [id number] [address] [place] [address], [place] [address] Apr, [facility] [address] [id number] [address] [place] [address], [place] [address] Apr, [facility] [place] [address] [id number] [place] [id number] March, [facility] [address] [id number] [place] [id number] Feb, [facility] [place] [address] [id number] [place] [id number] Jan, [facility] [place] [facility] [address] [id number] [address] [place] [address] Jan, [facility] [address] [facility] [id number] [address] [place] [address] Jan, [facility] [address] [facility] [id number] [address] [place] [address] Jan, [facility] [place] [address] [id number] [place] [id number] Dec, [facility] [place] [address] [id number] [place] [id number] Dec, [facility] [address] [facility] [id number] [address] [place] [address] Dec, [facility] [address] [facility] [id number] [address] [place] [address] Dec, [facility] [address] [facility] [id number] [address] [place] [address] Dec, [facility] [address] [facility] [id number] [address] [place] [address] Nov, [facility] [address] [facility] [id number] [address] [place] [address] Nov, [facility] [place] [address] [id number] [place] [id number] Nov, [facility] [address] [facility] [id number] [address] [place] [address] Nov, [facility] [place] [address] [id number] [place] [id number] Nov, [facility] [place] [address] [id number] [place] [id number] Nov, [facility] [place] [address] [id number] [place] [id number] Oct, [facility] [place] [address] [id number] [place] [id number] Oct, [facility] [address] [id number] [address] [place] [address] Oct, [facility] [address] [facility] [id number] [address] [place] [address] Oct, [facility] [address] [facility] [id number] [address] [place] [address] Oct, [facility] [address] [facility] [id number] [address] [place] [address] Sep, [facility] [address] [facility] [id number] [address] [place] [address] Sep, [facility] [address] [id number] [place] [id number] Sep, [facility] [address] [id number] [place] [id number] Sep, [facility] [address] [id number] [place] [id number] Sep, [facility] [address] [facility] [id number] [address] [place] [address] Sep, [facility] [address] [facility] [id number] [address] [place] [address] Aug, [facility] [address] [id number] [place] [id number] Aug, [facility] [address] [facility] [id number] [address] [place] [address] Aug, [facility] [place] [address] [id number] [place] [id number] Jul, [facility] [place] [address] [id number] [place] [id number] Jul, [facility] [place] [address] [id number] [place] [id number] Jun, [facility] [place] [address] [id number] [place] [id number] May, [facility] [place] [address] [id number] [place] [id number] Feb, [facility] [place] [address] [id number] [place] [id number] Feb, [facility] [address] [id number] [place] [id number] Feb, [facility] [address] [id number] [place] [id number] Dec, [facility] [address] [id number] [place] [id number] Dec, [facility] [address] [id number] [address] [place] [id number] Oct, [facility] [address] [id number] [address] [place] [id number] Sep, [facility] [address] [id number] [address] [place] [id number] Sep, [facility] [address] [id number] [address] [place] [id number] Sep, [facility] [address] [id number] [address] [place] [id number] Sep, [facility] [address] [id number] [address] [place] [id number] March, [facility] [address] [id number] [address] [place] [id number] Sep, [facility] [address] [id number] [address] [place] [id number] Jul, [facility] [address] [id number] [address] [place] [id number] May, [facility] [address] [id number] [address] [place] [phone] Jan, [facility] [address] [facility] [id number] [address] [place] [id number] Sep, [facility] [address] [facility] [id number] [address] [place] [id number] Aug, IMMUNIZATIONS No Known Immunizations SOCIAL HISTORY Never Assessed REASON FOR VISIT PLAN OF CARE VITAL SIGNS Height 60 in 2015-01-10 Weight 122.5 lbs 2015-01-10 Temperature 98.1 degrees Fahrenheit 2015-01-10 Heart Rate 80 bpm 2015-01-10 Respiratory Rate 20 2015-01-10 Blood pressure systolic 132 mmHg 2015-01-10 Blood pressure diastolic 80 mmHg 2015-01-10 MEDICATIONS Unknown Medications RESULTS No Results PROCEDURES Procedure Date Ordered Result Body Site COMPLETE CBC W/AUTO DIFF WBC Jan 10, 2015 COMPREHEN METABOLIC PANEL Jan 10, 2015 VENIPUNCT, ROUTINE* Jan 10, 2015 INSTRUCTIONS MEDICATIONS ADMINISTERED No Known Medications MEDICAL [...]
--- OUTSIDE RECORDS SUMMARY | 2020-05-31 11:40 | XMS REPORT ---
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 Design Engineer Name Role Phone NIKA WOLFF Unavailable PROBLEMS Type Condition ICD9-CM Code [id number] Code Onset Dates Condition S tatus SNOMED Code Problem Depression F32.9 Active 23907704 Problem Anxiety F41.9 Active 74485304 Problem Environmental allergies Z91.09 Active 584640852 Problem Atherosclerotic heart diseas e of [place] coronary 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 Active 193991941 Problem Lumbago with sciatica, unspecified side M54.40 Active 872582976 Problem Chronic pain syndrome G89.4 Active 399828990 Problem Hypercholesterolemia with hypertriglyceridemia E78 .2 Active 870389093 Problem Major depressive disorder, recurrent sev ere without psychotic features F33.2 Active 46715809 Problem Dysthymia (or depressive neurosis) F34.1 Active 37573249 Problem Cigarette nicotine dependence without complication F17.210 Active 84933395 Problem Alcohol use disorder, moderate, in sustained remission F10.21 Active 61651670 Problem Cannabis use disorder, mild, abuse F12.10 Active 44061354 Problem Elevated blood pressure I10 Active 42402519 ALLERGIES No Information ENCOUNTERS Encounter Location Date Diagnosis [facility] [address] [facility] [id number] [address] [place] [phone] Dec, [facility] [address] [facility] [id number] [address] [place] [phone] Dec, Major depressive disorder, r ecurrent severe without psychotic features F33.2 ; Chronic pain syndrome G89.4 and Encounter for immunization Z23 [facility] [address] [id number] [id number] Aug, Elevated blood pressure I10 [facility] [address] [facility] [id number] [address] [place] [id number] 17 May, 2018 Hypercholesterolemia with hy pertriglyceridemia E78.2 and Atherosclerotic heart disease of [place] coronary 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 [facility] [address] [facility] [id number] [address] [place] [id number] 11 Mar, 2018 Lumbago with sciatica, unspe cified side M54.40 ; Environmental allergies Z91.09 ; Hypercholesterolemia with hypertriglyceridemia E78.2 and Atherosclerotic heart disease of [place] coronary 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 [facility] [address] [facility] [id number] [address] [place] [id number] 14 Dec, 2017 Severe episode of recurrent major depressive disorder, without psychotic features F33.2 ; Alcohol use disorder, moderate, in sustained remission F10.21 and Cannabis use disorder, mild, abuse F12.10 [facility] [address] [place] [id number] [address] [place] [id number] 12 Dec, 2017 Severe episode of recurrent major depressive disorder, without psychotic features F33.2 [facility] [address] [facility] [id number] [address] [place] [id number] 18 Nov, 2017 [facility] [address] [facility] [id number] [address] [place] [phone] 08 Nov, 2017 Atherosclerotic heart diseas e of [place] coronary 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 ; Hypercholesterolemia with hypertriglyceridemia E78.2 ; Depression F32.9 and Cigarette nicotine dependence without complication F17.210 [facility] [address] [facility] [id number] [address] [place] [phone] Oct, [facility] [address] [id number] [address] [place] [id number] Jul, [facility] [address] [facility] [id number] [address] [place] [phone] Jun, [facility] [address] [facility] [id number] [address] [place] [id number] Apr, Pain in thoracic spine M54.6 and Lumbago with sciatica, unspecified side M54.40 [place] [address] [facility] [id number] [address] [place] [phone] March, [place] [address] [address] March, Depression F32.9 [place] [address] [place] [id number] [address] [place] [phone] March, Anxiety F41.9 ; Depression F 32.9 ; Atherosclerotic heart disease of [place] coronary 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 ; Hypercholesterolemia with hypertriglyceridemia E78.2 ; Right wrist tendonitis M77.8 and Environmental allergies Z91.09 [place] [address] [facility] [id number] [place] [id number] Dec, [place] [address] [address] Nov, Iron deficiency anemia, unsp ecified iron deficiency anemia type D50.9 ; Anxiety F41.9 ; Dysthymia (or depressive neurosis) F34.1 and Hypercholesterolemia with hypertriglyceridemia E78.2 [place] [address] [place] [id number] [address] [place] [phone] Oct, [place] [address] [id number] Oct, [place] [address] [place] [id number] [address] [place] [address] Oct, Dysthymia (or depressive sherice rosis) F34.1 ; Atherosclerotic heart disease of [place] coronary 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 ; Coronary atherosclerosis due to lipid rich plaque I25.83 ; Hypercholesterolemia with hypertriglyceridemia E78.2 ; Iron deficiency anemia, unspecified iron deficiency anemia type D50.9 ; Hospital discharge follow-up Z09 ; History of PID Z87.42 ; Environmental allergies Z91.09 and Dysuria R30.0 [place] [address] [place] [id number] [address] [place] [address] Sep, [place] [address] [address] Sep, [place] [address] [address] Aug, Dysthymia F34.1 and Anxiety F41.9 [place] [address] [address] March, Coronary artery disease invo lving [place] coronary artery, angina presence unspecified, unspecified whether [place] or transplanted heart I25.10 ; Bipolar 1 disorder, depressed F31.9 ; Anxiety F41.9 and Dysthymia F34.1 [place] [address] [address] 04 Feb, 2016 Depression F32.9 and Stomach pain R10.9 [place] [address] [address] Jan, Hyperlipidemia 272.4 [place] [address] [address] 17 Dec, 2015 [place] [address] [address] 11 Dec, 2015 Major depressive disorder, r ecurrent episode, unspecified 296.30 ; Anxiety F41.9 ; Grief F43.20 and Dysthymia F34.1 [place] [address] [address] Dec, Anxiety F41.9 and Grief F43. 20 [place] [address] [address] Oct, Insomnia, unspecified G47.00 and Anxiety F41.9 [place] [address] [address] Oct, Dysthymia F34.1 ; Right shou lder pain M25.511 ; Sciatica, right M54.31 and Iron deficiency anemia, unspecified iron deficiency anemia type D50.9 [place] [address] [address] Sep, [facility] [address] [address] Sep, Grief F43.20 [facility] [address] [phone] Sep, [facility] [address] [id number] 05 Sep, 2015 [facility] [address] [address] Sep, Hyperlipidemia E78.5 ; CAD ( coronary artery disease) I25.10 and HTN (hypertension) I10 [place] [address] [address] Aug, Allergic rhinitis, unspecifi ed allergic rhinitis type J30.9 [place] [address] [address] Aug, Left-sided low back pain wit h right-sided sciatica M54.41 and Hyperlipidemia, unspecified hyperlipidemia E78.5 [place] [address] [address] Aug, Neck pain M54.2 and Low back pain M54.5 [place] [address] [address] Jun, [facility] [address] [address] Jun, [facility] [address] [address] Jun, CAD (coronary artery disease ) 414.00 ; Hyperlipidemia 272.4 and Anemia 285.9 [facility] [address] [id number] 14 Feb, 2015 [facility] [address] [address] Feb, [facility] [address] [id number] [address] [place] [address], [place] [address] Jan, [facility] [address] [id number] [address] [place] [address], [place] [address] Jan, [facility] [address] [id number] [address] [place] [address], [place] [address] Jan, [facility] [address] [id number] [address] [place] [address], [place] [id number] 16 Jan, 2015 [facility] [address] [id number] [address] [place] [address], [place] [address] Dec, [facility] [address] [id number] [address] [place] [address], [place] [address] Dec, 2014 [facility] [address] [id number] [address] [place] [address], [place] [address] Dec, 2014 [facility] [address] [id number] [address] [place] [address], [place] [address] Dec, 2014 [facility] [address] [id number] [address] [place] [address], [place] [phone] Dec, 2014 [facility] [address] [id number] [address] [place] [address], [place] [address] Dec, 2014 [facility] [address] [id number] [address] [place] [address], [place] [address] Dec, 2014 [facility] [address] [id number] [address] [place] [address], [place] [id number] 13 Dec, 2014 [facility] [address] [id number] [address] [place] [address], [place] [id number] 12 Dec, 2014 [facility] [address] [id number] [address] [place] [address], [place] [address] Dec, 2014 [facility] [address] [id number] [address] [place] [address], [place] [address] 05 Fe2014 [facility] [address] [id number] [address] [place] [address], [place] [address] Dec, [facility] [address] [id number] [address] [place] [address], [place] [address] Nov, [facility] [address] [id number] [address] [place] [address], [place] [address] Nov, [facility] [address] [id number] [address] [place] [address], [place] [address] Nov, [facility] [address] [id number] [address] [place] [address], [place] [address] Nov, [facility] [address] [id number] [address] [place] [address], [place] [id number] Oct, [facility] [address] [id number] [address] [place] [address], [place] [address] Oct, [facility] [address] [id number] [address] [place] [address], [place] [id number] Sep, [facility] [address] [id number] [address] [place] [address], [place] [address] Sep, [facility] [address] [id number] [address] [place] [address], [place] [address] Aug, [facility] [address] [id number] [address] [place] [address], [place] [id number] Aug, [facility] [address] [id number] [address] [place] [address], [place] [id number] 30 Jul, 2014 [facility] [address] [id number] [address] [place] [address], [place] [id number] 30 Jul, 2014 [facility] [address] [id number] [address] [place] [address], [place] [id number] 16 Jul, 2014 [facility] [address] [id number] [address] [place] [address], [place] [address] 16 Jul, 2014 [facility] [address] [id number] [address] [place] [address], [place] [address] 15 Jul, 2013 [facility] [address] [id number] [facility] [address] 12 Jul, 2014 [facility] [address] [id number] [facility] [address] 12 Jul, 2014 [facility] [address] [id number] [facility] [address] 11 Jul, 2014 [facility] [address] [id number] [address] [place] [address], [place] [address] 11 Jul, 2013 [facility] [address] [id number] [address] [place] [address], [place] [address] 10 Jul, 2014 [facility] [address] [id number] [address] [place] [address], [place] [id number] 10 Jul, 2014 [facility] [address] [id number] [address] [place] [address], [place] [address] Jul, [facility] [address] [id number] [address] [place] [address], [place] [address] Jul, [facility] [address] [id number] [address] [place] [address], [place] [address] Jun, [facility] [address] [id number] [address] [place] [address], [place] [address] Jun, [facility] [address] [id number] [address] [place] [address], [place] [address] Jun, [facility] [address] [id number] [address] [place] [address], [place] [address] Jun, [facility] [address] [id number] [address] [place] [address], [place] [address] Jun, [facility] [address] [id number] [address] [place] [address], [place] [address] Jun, [facility] [address] [id number] [address] [place] [address], [place] [address] Jun, [facility] [address] [id number] [facility] [address] Jun, [facility] [address] [id number] [facility] [address] May, [facility] [address] [id number] [facility] [address] May, [facility] [address] [id number] [address] [place] [address], [place] [address] Apr, [facility] [address] [id number] [address] [place] [address], [place] [address] Apr, [facility] [address] [id number] [address] [place] [address], [place] [address] Apr, [facility] [address] [id number] [address] [place] [address], [place] [address] Apr, [facility] [address] [id number] [address] [place] [address], [place] [address] March, [facility] [address] [id number] [address] [place] [address], [place] [address] March, [facility] [address] [id number] [address] [place] [address], [place] [address] March, [facility] [address] [id number] [address] [place] [address], [place] [address] March, [facility] [address] [id number] [address] [place] [address], [place] [address] March, [facility] [address] [id number] [address] [place] [address], [place] [address] March, [facility] [address] [id number] [address] [place] [address], [place] [address] March, [facility] [address] [id number] [address] [place] [address], [place] [address] March, [facility] [address] [id number] [address] [place] [address], [place] [address] March, [facility] [address] [id number] [address] [place] [address], [place] [address] March, [facility] [address] [id number] [address] [place] [address], [place] [address] March, [facility] [address] [id number] [address] [place] [address], [place] [address] Nov, [facility] [address] [id number] [address] [place] [address], [place] [address] Nov, [facility] [address] [id number] [address] [place] [address], [place] [address] Nov, [facility] [address] [id number] [address] [place] [address], [place] [address] Oct, [facility] [address] [id number] [address] [place] [address], [place] [address] Oct, [facility] [address] [id number] [address] [place] [address], [place] [address] Aug, [facility] [address] [id number] [address] [place] [address], [place] [address] Aug, [facility] [place] [address] [id number] [place] [id number] Jun, [facility] [place] [address] [id number] [place] [id number] Apr, [facility] [address] [id number] [address] [place] [address], [place] [address] Apr, [facility] [address] [id number] [address] [place] [address], [place] [address] Apr, [facility] [place] [address] [id number] [place] [id number] March, [facility] [place] [address] [id number] [place] [id number] Feb, [facility] [place] [address] [id number] [place] [id number] Jan, [facility] [address] [id number] [address] [place] [id number] Jan, [facility] [address] [facility] [id number] [address] [place] [id number] Jan, [facility] [address] [facility] [id number] [address] [place] [id number] Jan, [facility] [place] [address] [id number] [place] [id number] Dec, [facility] [place] [address] [id number] [place] [id number] Dec, [facility] [address] [facility] [id number] [address] [place] [id number] Dec, [facility] [address] [facility] [id number] [address] [place] [id number] Dec, [facility] [address] [facility] [id number] [address] [place] [id number] Dec, [facility] [address] [facility] [id number] [address] [place] [id number] Nov, [facility] [address] [facility] [id number] [address] [place] [phone] Nov, [facility] [place] [address] [id number] [place] [id number] Nov, [facility] [address] [facility] [id number] [address] [place] [phone] Nov, [facility] [place] [address] [id number] [place] [id number] Nov, [facility] [place] [address] [id number] [place] [id number] Nov, [facility] [place] [address] [id number] [place] [id number] Oct, [facility] [place] [address] [id number] [place] [id number] Oct, [facility] [address] [id number] [address] [place] [id number] Oct, [facility] [address] [facility] [id number] [address] [place] [id number] Oct, [facility] [address] [facility] [id number] [address] [place] [id number] Oct, [facility] [address] [facility] [id number] [address] [place] [id number] Sep, [facility] [address] [facility] [id number] [address] [place] [phone] Sep, [facility] [place] [address] [id number] [place] [id number] Sep, [facility] [place] [address] [id number] [place] [id number] Sep, [facility] [place] [address] [id number] [place] [id number] Sep, [facility] [address] [facility] [id number] [address] [place] [phone] Sep, [facility] [address] [facility] [id number] [address] [place] [phone] Aug, [facility] [place] [address] [id number] [place] [id number] Aug, [facility] [address] [facility] [id number] [address] [place] [phone] Aug, [facility] [place] [address] [id number] [place] [id number] Jul, [facility] [place] [address] [id number] [place] [id number] Jul, [facility] [place] [address] [id number] [place] [id number] Jun, [facility] [place] [address] [id number] [place] [id number] May, [facility] [place] [address] [id number] [place] [id number] Feb, [facility] [place] [address] [id number] [place] [id number] Feb, [facility] [place] [address] [id number] [place] [id number] Feb, [facility] [place] [address] [id number] [place] [id number] Dec, [facility] [place] [address] [id number] [place] [id number] Dec, [facility] [address] [id number] [address] [place] [id number] Oct, [facility] [address] [id number] [address] [place] [phone] Sep, [facility] [address] [id number] [address] [place] [id number] Sep, [facility] [address] [id number] [address] [place] [phone] Sep, [facility] [address] [id number] [address] [place] [phone] Sep, [facility] [address] [id number] [address] [place] [phone] March, [facility] [address] [id number] [address] [place] [phone] Sep, [facility] [address] [id number] [address] [place] [id number] Jul, [facility] [address] [id number] [address] [place] [phone] May, [facility] [address] [id number] [address] [place] [phone] Jan, [facility] [address] [facility] [id number] [address] [place] [id number] Sep, [facility] [address] [facility] [id number] [address] [place] [phone] Aug, IMMUNIZATIONS No Known Immunizations SOCIAL HISTORY [...]
--- OUTSIDE RECORDS SUMMARY | 2020-05-31 11:40 | XMS REPORT ---
Author Author Jeane WOLFF Organization [facility] Address [address] [place] [address] Care Team Providers Care Technology Instructor Name Role Phone NIKA WOLFF Unavailable PROBLEMS Type Condition ICD9-CM Code [id number] Code Onset Dates Condition S tatus SNOMED Code Problem Depression F32.9 Active 51462510 Problem Anxiety F41.9 Active 55750562 Problem Environmental allergies Z91.09 Active 504699331 Problem Atherosclerotic heart 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 Active 776898351 Problem Lumbago with sciatica, unspecified side M54.40 Active 521399912 Problem Chronic pain syndrome G89.4 Active 677592581 Problem Hypercholesterolemia with hypertriglyceridemia E78 .2 Active 455857006 Problem Major depressive disorder, recurrent sev ere without psychotic features F33.2 Active 44200966 Problem Dysthymia (or depressive neurosis) F34.1 Active 29251295 Problem Cigarette nicotine dependence without complication F17.210 Active 15420075 Problem Alcohol use disorder, moderate, in sustained remission F10.21 Active 56386210 Problem Cannabis use disorder, mild, abuse F12.10 Active 40660443 Problem Elevated blood pressure I10 Active 24958230 ALLERGIES No Information ENCOUNTERS Encounter Location Date Diagnosis [facility] [address] [facility] [id number] [address] [place] [address] Dec, [facility] [address] [facility] [id number] [address] [place] [address] Dec, Major depressive disorder, r ecurrent severe without psychotic features F33.2 ; Chronic pain syndrome G89.4 and Encounter for immunization Z23 [facility] [address] [id number] [place] [id number] Aug, Elevated blood pressure I10 [facility] [address] [facility] [id number] [address] [place] [address] 17 May, 2018 Hypercholesterolemia with hy pertriglyceridemia E78.2 and Atherosclerotic heart disease of [place] coronary 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 [facility] [address] [facility] [id number] [address] [place] [address] 11 Mar, 2018 Lumbago with sciatica, unspe cified side M54.40 ; Environmental allergies Z91.09 ; Hypercholesterolemia with hypertriglyceridemia E78.2 and Atherosclerotic heart disease of [place] coronary 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 [facility] [address] [facility] [id number] [address] [place] [address] 14 Dec, 2017 Severe episode of recurrent major depressive disorder, without psychotic features F33.2 ; Alcohol use disorder, moderate, in sustained remission F10.21 and Cannabis use disorder, mild, abuse F12.10 [facility] [address] [place] [id number] [address] [place] [address] 12 Dec, 2017 Severe episode of recurrent major depressive disorder, without psychotic features F33.2 [facility] [address] [facility] [id number] [address] [place] [address] 18 Nov, 2017 [facility] [address] [facility] [id number] [address] [place] [address] 08 Nov, 2017 Atherosclerotic heart 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 ; Hypercholesterolemia with hypertriglyceridemia E78.2 ; Depression F32.9 and Cigarette nicotine dependence without complication F17.210 [facility] [address] [facility] [id number] [address] [place] [address] Oct, [facility] [address] [id number] [address] [place] [address] Jul, [facility] [address] [facility] [id number] [address] [place] [address] Jun, [facility] [address] [facility] [id number] [address] [place] [address] Apr, Pain in thoracic spine M54.6 and Lumbago with sciatica, unspecified side M54.40 [place] [address] [facility] [id number] [address] [place] [address] March, [place] [address] [address] March, Depression F32.9 [place] [address] [place] [id number] [address] [place] [address] March, Anxiety F41.9 ; Depression F 32.9 ; Atherosclerotic heart disease of [place] coronary 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 ; Hypercholesterolemia with hypertriglyceridemia E78.2 ; Right wrist tendonitis M77.8 and Environmental allergies Z91.09 [place] [address] [facility][1] [id number] [place] [id number] Dec, [place] [address] [address] Nov, Iron deficiency anemia, unsp ecified iron deficiency anemia type D50.9 ; Anxiety F41.9 ; Dysthymia (or depressive neurosis) F34.1 and Hypercholesterolemia with hypertriglyceridemia E78.2 [place] [address] [place] [id number] [address] [place] [address] Oct, [place] [address] [address] Oct, [place] [address] [place] [id number] [address] [place] [address] Oct, Dysthymia (or depressive sherice rosis) F34.1 ; Atherosclerotic heart disease of [place] coronary 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 ; Coronary atherosclerosis due to lipid rich plaque I25.83 ; Hypercholesterolemia with hypertriglyceridemia E78.2 ; Iron deficiency anemia, unspecified iron deficiency anemia type D50.9 ; Hospital discharge follow-up Z09 ; History of PID Z87.42 ; Environmental allergies Z91.09 and Dysuria R30.0 [place] [address] [place] [id number] [address] [place] [address] Sep, [place] [address] [address] Sep, [place] [address] [address] Aug, Dysthymia F34.1 and Anxiety F41.9 [place] [address] [address] March, Coronary artery disease invo lving [place] coronary artery, angina presence unspecified, unspecified whether [place] or transplanted heart I25.10 ; Bipolar 1 disorder, depressed F31.9 ; Anxiety F41.9 and Dysthymia F34.1 [place] [address] [address] 04 Feb, 2016 Depression F32.9 and Stomach pain R10.9 [place] [address] [address] Jan, Hyperlipidemia 272.4 [place] [address] [address] 17 Dec, 2015 [place] [address] [address] 11 Dec, 2015 Major depressive disorder, r ecurrent episode, unspecified 296.30 ; Anxiety F41.9 ; Grief F43.20 and Dysthymia F34.1 [place] [address] [address] Dec, Anxiety F41.9 and Grief F43. 20 [place] [address] [address] Oct, Insomnia, unspecified G47.00 and Anxiety F41.9 [place] [address] [address] Oct, Dysthymia F34.1 ; Right shou lder pain M25.511 ; Sciatica, right M54.31 and Iron deficiency anemia, unspecified iron deficiency anemia type D50.9 [place] [address] [address] Sep, [facility] [address] [address] Sep, Grief F43.20 [facility] [address] [address] Sep, [facility] [address] [address] 05 Sep, 2015 [facility] [address] [address] Sep, Hyperlipidemia E78.5 ; CAD ( coronary artery disease) I25.10 and HTN (hypertension) I10 [place] [address] [address] Aug, Allergic rhinitis, unspecifi ed allergic rhinitis type J30.9 [place] [address] [address] Aug, Left-sided low back pain wit h right-sided sciatica M54.41 and Hyperlipidemia, unspecified hyperlipidemia E78.5 [place] [address] [address] Aug, Neck pain M54.2 and Low back pain M54.5 [place] [address] [address] Jun, [facility] [address] [address] Jun, [facility] [address] [address] Jun, CAD (coronary artery disease ) 414.00 ; Hyperlipidemia 272.4 and Anemia 285.9 [facility] [address] [address] 14 Feb, 2015 [facility] [address] [address] Feb, [facility] [address] [id number] [address] [place] [address], [place] [address] Jan, [facility] [address] [id number] [address] [place] [address], [place] [address] Jan, [facility] [address] [id number] [address] [place] [address], [place] [address] Jan, [facility] [address] [id number] [address] [place] [address], [place] [address] 16 Jan, 2015 [facility] [address] [id number] [address] [place] [address], [place] [address] Dec, [facility] [address] [id number] [address] [place] [address], [place] [address] Dec, 2014 [facility] [address] [id number] [address] [place] [address], [place] [address] Dec, 2014 [facility] [address] [id number] [address] [place] [address], [place] [address] Dec, 2014 [facility] [address] [id number] [address] [place] [address], [place] [address] Dec, 2014 [facility] [address] [id number] [address] [place] [address], [place] [address] Dec, 2014 [facility] [address] [id number] [address] [place] [address], [place] [address] Dec, 2014 [facility] [address] [id number] [address] [place] [address], [place] [address] 13 Dec, 2014 [facility] [address] [id number] [address] [place] [address], [place] [address] 12 Dec, 2014 [facility] [address] [id number] [address] [place] [address], [place] [address] Dec, 2014 [facility] [address] [id number] [address] [place] [address], [place] [address] 05 Fe2014 [facility] [address] [id number] [address] [place] [address], [place] [address] Dec, [facility] [address] [id number] [address] [place] [address], [place] [address] Nov, [facility] [address] [id number] [address] [place] [address], [place] [address] Nov, [facility] [address] [id number] [address] [place] [address], [place] [address] Nov, [facility] [address] [id number] [address] [place] [address], [place] [address] Nov, [facility] [address] [id number] [address] [place] [address], [place] [address] Oct, [facility] [address] [id number] [address] [place] [address], [place] [address] Oct, [facility] [address] [id number] [address] [place] [address], [place] [address] Sep, [facility] [address] [id number] [address] [place] [address], [place] [address] Sep, [facility] [address] [id number] [address] [place] [address], [place] [address] Aug, [facility] [address] [id number] [address] [place] [address], [place] [address] Aug, [facility] [address] [id number] [address] [place] [address], [place] [address] 30 Jul, 2014 [facility] [address] [id number] [address] [place] [address], [place] [address] 30 Jul, 2014 [facility] [address] [id number] [address] [place] [address], [place] [address] 16 Jul, 2014 [facility] [address] [id number] [address] [place] [address], [place] [address] 16 Jul, 2014 [facility] [address] [id number] [address] [place] [address], [place] [address] 15 Jul, 2013 [facility] [address] [id number] [address] [place] [address] 12 Jul, 2014 [facility] [address] [id number] [facility] [place] [address] 12 Jul, 2014 [facility] [address] [id number] [facility] [place] [address] 11 Jul, 2014 [facility] [address] [id number] [address] [place] [address], [place] [address] 11 Jul, 2013 [facility] [address] [id number] [address] [place] [address], [place] [address] 10 Jul, 2014 [facility] [address] [id number] [address] [place] [address], [place] [address] 10 Jul, 2014 [facility] [address] [id number] [address] [place] [address], [place] [address] Jul, [facility] [address] [id number] [address] [place] [address], [place] [address] Jul, [facility] [address] [id number] [address] [place] [address], [place] [address] Jun, [facility] [address] [id number] [address] [place] [address], [place] [address] Jun, [facility] [address] [id number] [address] [place] [address], [place] [address] Jun, [facility] [address] [id number] [address] [place] [address], [place] [address] Jun, [facility] [address] [id number] [address] [place] [address], [place] [address] Jun, [facility] [address] [id number] [address] [place] [address], [place] [address] Jun, [facility] [address] [id number] [address] [place] [address], [place] [address] Jun, [facility] [address] [id number] [facility] [place] [address] Jun, [facility] [address] [id number] [facility] [place] [address] May, [facility] [address] [id number] [facility] [place] [address] May, [facility] [address] [id number] [address] [place] [address], [place] [address] Apr, [facility] [address] [id number] [address] [place] [address], [place] [address] Apr, [facility] [address] [id number] [address] [place] [address], [place] [address] Apr, [facility] [address] [id number] [address] [place] [address], [place] [address] Apr, [facility] [address] [id number] [address] [place] [address], [place] [address] March, [facility] [address] [id number] [address] [place] [address], [place] [address] March, [facility] [address] [id number] [address] [place] [address], [place] [address] March, [facility] [address] [id number] [address] [place] [address], [place] [address] March, [facility] [address] [id number] [address] [place] [address], [place] [address] March, [facility] [address] [id number] [address] [place] [address], [place] [address] March, [facility] [address] [id number] [address] [place] [address], [place] [address] March, [facility] [address] [id number] [address] [place] [address], [place] [address] March, [facility] [address] [id number] [address] [place] [address], [place] [address] March, [facility] [address] [id number] [address] [place] [address], [place] [address] March, [facility] [address] [id number] [address] [place] [address], [place] [address] March, [facility] [address] [id number] [address] [place] [address], [place] [address] Nov, [facility] [address] [id number] [address] [place] [address], [place] [address] Nov, [facility] [address] [id number] [address] [place] [address], [place] [address] Nov, [facility] [address] [id number] [address] [place] [address], [place] [address] Oct, [facility] [address] [id number] [address] [place] [address], [place] [address] Oct, [facility] [address] [id number] [address] [place] [address], [place] [address] Aug, [facility] [address] [id number] [address] [place] [address], [place] [address] Aug, [facility] [place] [address] [id number] [place] [id number] Jun, [facility] [place] [address] [id number] [place] [id number] Apr, [facility] [address] [id number] [address] [place] [address], [place] [address] Apr, [facility] [address] [id number] [address] [place] [address], [place] [address] Apr, [facility] [place] [address] [id number] [place] [id number] March, [facility] [place] [address] [id number] [place] [id number] Feb, [facility] [place] [address] [id number] [place] [id number] Jan, [facility] [address] [id number] [address] [place] [address] Jan, [facility] [address] [facility] [id number] [address] [place] [address] Jan, [facility] [address] [facility] [id number] [address] [place] [address] Jan, [facility] [place] [address] [id number] [place] [id number] Dec, [facility] [place] [address] [id number] [place] [id number] Dec, [facility] [address] [facility] [id number] [address] [place] [address] Dec, [facility] [address] [facility] [id number] [address] [place] [address] Dec, [facility] [address] [facility] [id number] [address] [place] [address] Dec, [facility] [address] [facility] [id number] [address] [place] [address] Nov, [facility] [address] [facility] [id number] [address] [place] [address] Nov, [facility] [place] [address] [id number] [place] [id number] Nov, [facility] [address] [facility] [id number] [address] [place] [address] Nov, [facility] [place] [address] [id number] [place] [id number] Nov, [facility] [place] [address] [id number] [place] [id number] Nov, [facility] [place] [address] [id number] [place] [id number] Oct, [facility] [place] [address] [id number] [place] [id number] Oct, [facility] [address] [id number] [address] [place] [address] Oct, [facility] [address] [facility] [id number] [address] [place] [address] Oct, [facility] [address] [facility] [id number] [address] [place] [address] Oct, [facility] [address] [facility] [id number] [address] [place] [address] Sep, [facility] [address] [facility] [id number] [address] [place] [address] Sep, [facility] [place] [address] [id number] [place] [id number] Sep, [facility] [place] [address] [id number] [place] [id number] Sep, [facility] [place] [address] [id number] [place] [id number] Sep, [facility] [address] [facility] [id number] [address] [place] [address] Sep, [facility] [address] [facility] [id number] [address] [place] [address] Aug, [facility] [place] [address] [id number] [place] [id number] Aug, [facility] [address] [facility] [id number] [address] [place] [address] Aug, [facility] [place] [address] [id number] [place] [id number] Jul, [facility] [place] [address] [id number] [place] [id number] Jul, [facility] [place] [address] [id number] [place] [id number] Jun, [facility] [place] [address] [id number] [place] [id number] May, [facility] [place] [address] [id number] [place] [id number] Feb, [facility] [place] [address] [id number] [place] [id number] Feb, [facility] [address] [id number] [place] [id number] Feb, [facility] [address] [id number] [place] [id number] Dec, [facility] [address] [id number] [place] [id number] Dec, [facility] [address] [id number] [address] [place] [id number] Oct, [facility] [address] [id number] [address] [place] [id number] Sep, [facility] [address] [id number] [address] [place] [id number] Sep, [facility] [address] [id number] [address] [place] [id number] Sep, [facility] [address] [id number] [address] [place] [id number] Sep, [facility] [address] [id number] [address] [place] [id number] March, [facility] [address] [id number] [address] [place] [phone] Sep, [facility] [address] [id number] [address] [place] [id number] Jul, [facility] [address] [id number] [address] [place] [id number] May, [facility] [address] [id number] [address] [place] [id number] Jan, [facility] [address] [facility] [id number] [address] [place] [id number] Sep, [facility] [address] [facility] [id number] [address] [place] [phone] Aug, IMMUNIZATIONS No Known Immunizations SOCIAL HISTORY [...]
--- OUTSIDE RECORDS SUMMARY | 2020-05-31 11:40 | XMS REPORT ---
Author Author Jeane WOLFF Organization [facility] Address [address] [place] [address] Care Team Providers Care Maintenance Mgr Name Role Phone NIKA WOLFF Unavailable PROBLEMS Type Condition ICD9-CM Code DFV25-IN Code Onset Dates Condition S tatus SNOMED Code Problem Depression F32.9 Active 07607185 Problem Anxiety F41.9 Active 92698422 Problem Environmental allergies Z91.09 Active 254954270 Problem Atherosclerotic heart diseas e of [place] coronary 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 Active 580303210 Problem Lumbago with sciatica, unspecified side M54.40 Active 918920689 Problem Chronic pain syndrome G89.4 Active 289624873 Problem Hypercholesterolemia with hypertriglyceridemia E78 .2 Active 932948566 Problem Major depressive disorder, recurrent sev ere without psychotic features F33.2 Active 32221420 Problem Dysthymia (or depressive neurosis) F34.1 Active 16335513 Problem Cigarette nicotine dependence without complication F17.210 Active 27050134 Problem Alcohol use disorder, moderate, in sustained remission F10.21 Active 21100230 Problem Cannabis use disorder, mild, abuse F12.10 Active 03634987 Problem Elevated blood pressure I10 Active 14256113 ALLERGIES No Information ENCOUNTERS Encounter Location Date Diagnosis [facility] [address] [id number] [address] [place] [id number] Dec, [facility] [address] [facility] [id number] [address] [place] [phone] Dec, Major depressive disorder, r ecurrent severe without psychotic features F33.2 ; Chronic pain syndrome G89.4 and Encounter for immunization Z23 [facility] [address] [id number] [place] [id number] Aug, Elevated blood pressure I10 [facility] [address] [facility] [id number] [address] [place] [id number] 17 May, 2018 Hypercholesterolemia with hy pertriglyceridemia E78.2 and Atherosclerotic heart disease of [place] coronary 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 [facility] [address] [facility] [id number] [address] [place] [id number] 11 Mar, 2018 Lumbago with sciatica, unspe cified side M54.40 ; Environmental allergies Z91.09 ; Hypercholesterolemia with hypertriglyceridemia E78.2 and Atherosclerotic heart disease of [place] coronary 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 [facility] [address] [facility] [id number] [address] [place] [id number] 14 Dec, 2017 Severe episode of recurrent major depressive disorder, without psychotic features F33.2 ; Alcohol use disorder, moderate, in sustained remission F10.21 and Cannabis use disorder, mild, abuse F12.10 [facility] [address] [place] [id number] [address] [place] [id number] 12 Dec, 2017 Severe episode of recurrent major depressive disorder, without psychotic features F33.2 [facility] [address] [facility] [id number] [address] [place] [id number] 18 Nov, 2017 [facility] [address] 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 [id number] [address] [place] [phone] Oct, [facility] [address] [id number] [address] [place] [phone] Jul, [facility] [address] [facility] [id number] [address] [place] [phone] Jun, [facility] [address] [facility] [id number] [address] [place] [id number] Apr, Pain in thoracic spine M54.6 and Lumbago with sciatica, unspecified side M54.40 [place] [address] [facility] [id number] [address] [place] [phone] March, [place] [address] [address] March, Depression F32.9 [place] [address] [place] [id number] [address] [place] [phone] March, Anxiety F41.9 ; Depression F 32.9 ; Atherosclerotic heart disease of [place] coronary 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 ; Hypercholesterolemia with hypertriglyceridemia E78.2 ; Right wrist tendonitis M77.8 and Environmental allergies Z91.09 [place] [address] [facility] [id number] [place] [id number] Dec, [place] [address] [address] Nov, Iron deficiency anemia, unsp ecified iron deficiency anemia type D50.9 ; Anxiety F41.9 ; Dysthymia (or depressive neurosis) F34.1 and Hypercholesterolemia with hypertriglyceridemia E78.2 [place] [address] [place] [id number] [address] [place] [phone] Oct, [place] [address] [address] Oct, [place] [address] [place] [id number] [address] [place] [address] Oct, Dysthymia (or depressive sherice rosis) F34.1 ; Atherosclerotic heart disease of [place] coronary 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 ; Coronary atherosclerosis due to lipid rich plaque I25.83 ; Hypercholesterolemia with hypertriglyceridemia E78.2 ; Iron deficiency anemia, unspecified iron deficiency anemia type D50.9 ; Hospital discharge follow-up Z09 ; History of PID Z87.42 ; Environmental allergies Z91.09 and Dysuria R30.0 [place] [address] [place] [id number] [address] [place] [phone] Sep, [place] [address] [address] Sep, [place] [address] [address] Aug, Dysthymia F34.1 and Anxiety F41.9 [place] [address] [address] March, Coronary artery disease invo lving [place] coronary artery, angina presence unspecified, unspecified whether [place] or transplanted heart I25.10 ; Bipolar 1 disorder, depressed F31.9 ; Anxiety F41.9 and Dysthymia F34.1 [place] [address] [address] 04 Feb, 2016 Depression F32.9 and Stomach pain R10.9 [place] [address] [address] Jan, Hyperlipidemia 272.4 [place] [address] [address] 17 Dec, 2015 [place] [address] [address] 11 Dec, 2015 Major depressive disorder, r ecurrent episode, unspecified 296.30 ; Anxiety F41.9 ; Grief F43.20 and Dysthymia F34.1 [place] [address] [address] Dec, Anxiety F41.9 and Grief F43. 20 [place] [address] [address] Oct, Insomnia, unspecified G47.00 and Anxiety F41.9 [place] [address] [address] Oct, Dysthymia F34.1 ; Right shou lder pain M25.511 ; Sciatica, right M54.31 and Iron deficiency anemia, unspecified iron deficiency anemia type D50.9 [place] [address] [address] Sep, [facility] [address] [address] Sep, Grief F43.20 [facility] [address] [address] Sep, [facility] [address] [address] 05 Sep, 2015 [facility] [address] [address] Sep, Hyperlipidemia E78.5 ; CAD ( coronary artery disease) I25.10 and HTN (hypertension) I10 [place] [address] [address] Aug, Allergic rhinitis, unspecifi ed allergic rhinitis type J30.9 [place] [address] [address] Aug, Left-sided low back pain wit h right-sided sciatica M54.41 and Hyperlipidemia, unspecified hyperlipidemia E78.5 [place] [address] [address] Aug, Neck pain M54.2 and Low back pain M54.5 [place] [address] [address] Jun, [facility] [address] [address] Jun, [facility] [address] [address] Jun, CAD (coronary artery disease ) 414.00 ; Hyperlipidemia 272.4 and Anemia 285.9 [facility] [address] [address] 14 Feb, 2015 [facility] [address] [address] Feb, [facility] [address] [id number] [address] [place] [address], [place] [address] Jan, [facility] [address] [id number] [address] [place] [address], [place] [address] Jan, [facility] [address] [id number] [address] [place] [address], [place] [address] Jan, [facility] [address] [id number] [address] [place] [address], [place] [address] 16 Jan, 2015 [facility] [address] [id number] [address] [place] [address], [place] [address] Dec, [facility] [address] [id number] [address] [place] [address], [place] [address] Dec, 2014 [facility] [address] [id number] [address] [place] [address], [place] [address] Dec, 2014 [facility] [address] [id number] [address] [place] [address], [place] [address] Dec, 2014 [facility] [address] [id number] [address] [place] [address], [place] [address] Dec, 2014 [facility] [address] [id number] [address] [place] [address], [place] [address] Dec, 2014 [facility] [address] [id number] [address] [place] [address], [place] [address] Dec, 2014 [facility] [address] [id number] [address] [place] [address], [place] [address] 13 Dec, 2014 [facility] [address] [id number] [address] [place] [address], [place] [address] 12 Dec, 2014 [facility] [address] [id number] [address] [place] [address], [place] [address] Dec, 2014 [facility] [address] [id number] [address] [place] [address], [place] [address] 05 Fe2014 [facility] [address] [id number] [address] [place] [address], [place] [address] Dec, [facility] [address] [id number] [address] [place] [address], [place] [address] Nov, [facility] [address] [id number] [address] [place] [address], [place] [address] Nov, [facility] [address] [id number] [address] [place] [address], [place] [address] Nov, [facility] [address] [id number] [address] [place] [address], [place] [address] Nov, [facility] [address] [id number] [address] [place] [address], [place] [address] Oct, [facility] [address] [id number] [address] [place] [address], [place] [address] Oct, [facility] [address] [id number] [address] [place] [address], [place] [address] Sep, [facility] [address] [id number] [address] [place] [address], [place] [address] Sep, [facility] [address] [id number] [address] [place] [address], [place] [address] Aug, [facility] [address] [id number] [address] [place] [address], [place] [address] Aug, [facility] [address] [id number] [address] [place] [address], [place] [address] 30 Jul, 2014 [facility] [address] [id number] [address] [place] [address], [place] [address] 30 Jul, 2014 [facility] [address] [id number] [address] [place] [address], [place] [address] 16 Jul, 2014 [facility] [address] [id number] [address] [place] [address], [place] [address] 16 Jul, 2014 [facility] [address] [id number] [address] [place] [address], [place] [address] 15 Jul, 2013 [facility] [address] [id number] [facility] [place] [address] 12 Jul, 2014 [facility] [address] [id number] [facility] [place] [address] 12 Jul, 2014 [facility] [address] [id number] [facility] [place] [address] 11 Jul, 2014 [facility] [address] [id number] [address] [place] [address], [place] [address] 11 Jul, 2013 [facility] [address] [id number] [address] [place] [address], [place] [address] 10 Jul, 2014 [facility] [address] [id number] [address] [place] [address], [place] [address] 10 Jul, 2014 [facility] [address] [id number] [address] [place] [address], [place] [address] Jul, [facility] [address] [id number] [address] [place] [address], [place] [address] Jul, [facility] [address] [id number] [address] [place] [address], [place] [address] Jun, [facility] [address] [id number] [address] [place] [address], [place] [address] Jun, [facility] [address] [id number] [address] [place] [address], [place] [address] Jun, [facility] [address] [id number] [address] [place] [address], [place] [address] Jun, [facility] [address] [id number] [address] [place] [address], [place] [address] Jun, [facility] [address] [id number] [address] [place] [address], [place] [address] Jun, [facility] [address] [id number] [address] [place] [address], [place] [address] Jun, [facility] [address] [id number] [facility] [place] [address] Jun, [facility] [address] [id number] [facility] [place] [address] May, [facility] [address] [id number] [facility] [place] [address] May, [facility] [address] [id number] [address] [place] [address], [place] [address] Apr, [facility] [address] [id number] [address] [place] [address], [place] [address] Apr, [facility] [address] [id number] [address] [place] [address], [place] [address] Apr, [facility] [address] [id number] [address] [place] [address], [place] [address] Apr, [facility] [address] [id number] [address] [place] [address], [place] [address] March, [facility] [address] [id number] [address] [place] [address], [place] [address] March, [facility] [address] [id number] [address] [place] [address], [place] [address] March, [facility] [address] [id number] [address] [place] [address], [place] [address] March, [facility] [address] [id number] [address] [place] [address], [place] [address] March, [facility] [address] [id number] [address] [place] [address], [place] [address] March, [facility] [address] [id number] [address] [place] [address], [place] [address] March, [facility] [address] [id number] [address] [place] [address], [place] [address] March, [facility] [address] [id number] [address] [place] [address], [place] [address] March, [facility] [address] [id number] [address] [place] [address], [place] [address] March, [facility] [address] [id number] [address] [place] [address], [place] [address] March, [facility] [address] [id number] [address] [place] [address], [place] [address] Nov, [facility] [address] [id number] [address] [place] [address], [place] [address] Nov, [facility] [address] [id number] [address] [place] [address], [place] [address] Nov, [facility] [address] [id number] [address] [place] [address], [place] [address] Oct, [facility] [address] [id number] [address] [place] [address], [place] [address] Oct, [facility] [address] [id number] [address] [place] [address], [place] [address] Aug, [facility] [address] [id number] [address] [place] [address], [place] [address] Aug, [facility] [place] [address] [id number] [place] [id number] Jun, [facility] [place] [address] [id number] [place] [id number] Apr, [facility] [address] [id number] [address] [place] [address], [place] [address] Apr, [facility] [address] [id number] [address] [place] [address], [place] [address] Apr, [facility] [place] [address] [id number] [place] [id number] March, [facility] [place] [address] [id number] [place] [id number] Feb, [facility] [place] [address] [id number] [place] [id number] Jan, [facility] [address] [id number] [address] [place] [address] Jan, [facility] [address] [facility] [id number] [address] [place] [address] Jan, [facility] [address] [facility] [id number] [address] [place] [address] Jan, [facility] [place] [address] [id number] [place] [id number] Dec, [facility] [place] [address] [id number] [place] [id number] Dec, [facility] [address] [facility] [id number] [address] [place] [address] Dec, [facility] [address] [facility] [id number] [address] [place] [address] Dec, [facility] [address] [facility] [id number] [address] [place] [address] Dec, [facility] [address] [facility] [id number] [address] [place] [address] Nov, [facility] [address] [facility] [id number] [address] [place] [address] Nov, [facility] [place] [address] [id number] [place] [id number] Nov, [facility] [address] [facility] [id number] [address] [place] [address] Nov, [facility] [place] [address] [id number] [place] [id number] Nov, [facility] [place] [address] [id number] [place] [id number] Nov, [facility] [place] [address] [id number] [place] [id number] Oct, [facility] [place] [address] [id number] [place] [id number] Oct, [facility] [address] [id number] [address] [place] [address] Oct, [facility] [address] [facility] [id number] [address] [place] [address] Oct, [facility] [address] [facility] [id number] [address] [place] [address] Oct, [facility] [address] [facility] [id number] [address] [place] [address] Sep, [facility] [address] [facility] [id number] [address] [place] [address] Sep, [facility] [place] [address] [id number] [place] [id number] Sep, [facility] [place] [address] [id number] [place] [id number] Sep, [facility] [place] [address] [id number] [place] [id number] Sep, [facility] [address] [facility] [id number] [address] [place] [address] Sep, [facility] [address] [facility] [id number] [address] [place] [id number] Aug, [facility] [place] [address] [id number] [place] [id number] Aug, [facility] [address] [facility] [id number] [address] [place] [id number] Aug, [facility] [place] [address] [id number] [place] [id number] Jul, [facility] [place] [address] [id number] [place] [id number] Jul, [facility] [place] [address] [id number] [place] [id number] Jun, [facility] [place] [address] [id number] [place] [id number] May, [facility] [place] [address] [id number] [place] [id number] Feb, [facility] [place] [address] [id number] [place] [id number] Feb, [facility] [address] [id number] [place] [id number] Feb, [facility] [address] [id number] [place] [id number] Dec, [facility] [address] [id number] [place] [id number] Dec, [facility] [address] [id number] [address] [place] [id number] Oct, [facility] [address] [id number] [address] [place] [id number] Sep, [facility] [address] [id number] [address] [place] [id number] Sep, [facility] [address] [id number] [address] [place] [id number] Sep, [facility] [address] [id number] [address] [place] [id number] Sep, [facility] [address] [id number] [address] [place] [id number] March, [facility] [address] [id number] [address] [place] [id number] Sep, [facility] [address] [id number] [address] [place] [id number] Jul, [facility] [address] [id number] [address] [place] [id number] May, [facility] [address] [id number] [address] [place] [id number] Jan, [facility] [address] [facility] [id number] [address] [place] [id number] Sep, [facility] [address] [facility] [id number] [address] [place] [id number] Aug, IMMUNIZATIONS No Known Immunizations SOCIAL HISTORY Never Assessed REASON FOR VISIT PLAN OF CARE VITAL SIGNS Height 60 in 2014-10-03 Weight 112 lbs 2014-10-03 Temperature 98.6 degrees Fahrenheit 2014-10-03 Heart Rate 70 bpm 2014-10-03 Respiratory Rate 16 2014-10-03 Blood pressure systolic 104 mmHg 2014-10-03 Blood pressure diastolic 70 mmHg 2014-10-03 MEDICATIONS Unknown Medications RESULTS No Results PROCEDURES [...]
--- OUTSIDE RECORDS SUMMARY | 2020-05-31 11:40 | XMS REPORT ---
Author Author Jeane WOLFF Organization [facility] Address [address] [place] [address] Care Team Providers Care Telecommunications Repairer Name Role Phone NIKA WOLFF Unavailable PROBLEMS Type Condition ICD9-CM Code GVH85-RR Code Onset Dates Condition S tatus SNOMED Code Problem Depression F32.9 Active 75939373 Problem Anxiety F41.9 Active 52105682 Problem Environmental allergies Z91.09 Active 697585045 Problem Atherosclerotic heart diseas e of [place] coronary 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 Active 549719468 Problem Lumbago with sciatica, unspecified side M54.40 Active 706369743 Problem Chronic pain syndrome G89.4 Active 114322520 Problem Hypercholesterolemia with hypertriglyceridemia E78 .2 Active 877114025 Problem Major depressive disorder, recurrent sev ere without psychotic features F33.2 Active 77870344 Problem Dysthymia (or depressive neurosis) F34.1 Active 17571554 Problem Cigarette nicotine dependence without complication F17.210 Active 63562110 Problem Alcohol use disorder, moderate, in sustained remission F10.21 Active 05923437 Problem Cannabis use disorder, mild, abuse F12.10 Active 11207045 Problem Elevated blood pressure I10 Active 78293636 ALLERGIES No Information ENCOUNTERS Encounter Location Date Diagnosis [facility] [address] [facility] [id number] [address] [place] [id number] Dec, [facility] [address] [facility] [id number] [address] [place] [address] Dec, Major depressive disorder, r ecurrent severe without psychotic features F33.2 ; Chronic pain syndrome G89.4 and Encounter for immunization Z23 [facility] [address] [id number] [place] [id number] Aug, Elevated blood pressure I10 [facility] [address] [facility] [id number] [address] [place] [address] 17 May, 2018 Hypercholesterolemia with hy pertriglyceridemia E78.2 and Atherosclerotic heart disease of [place] coronary 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 [facility] [address] [facility] [id number] [address] [place] [address] 11 Mar, 2018 Lumbago with sciatica, unspe cified side M54.40 ; Environmental allergies Z91.09 ; Hypercholesterolemia with hypertriglyceridemia E78.2 and Atherosclerotic heart disease of [place] coronary 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 [facility] [address] [facility] [id number] [address] [place] [address] 14 Dec, 2017 Severe episode of recurrent major depressive disorder, without psychotic features F33.2 ; Alcohol use disorder, moderate, in sustained remission F10.21 and Cannabis use disorder, mild, abuse F12.10 [facility] [address] [place] [id number] [address] [place] [address] 12 Dec, 2017 Severe episode of recurrent major depressive disorder, without psychotic features F33.2 [facility] [address] [facility] [id number] [address] [place] [address] 18 Nov, 2017 [facility] [address] [facility] [id number] [address] [place] [address] 08 Nov, 2017 Atherosclerotic heart diseas e of [place] coronary 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 ; Hypercholesterolemia with hypertriglyceridemia E78.2 ; Depression F32.9 and Cigarette nicotine dependence without complication F17.210 [facility] [address] [facility] [id number] [address] [place] [address] Oct, [facility] [address] [id number] [address] [place] [address] Jul, [facility] [address] [facility] [id number] [address] [place] [address] Jun, [facility] [address] [facility] [id number] [address] [place] [address] Apr, Pain in thoracic spine M54.6 and Lumbago with sciatica, unspecified side M54.40 [place] [address] [facility] [id number] [address] [place] [address] March, [place] [address] [address] March, Depression F32.9 [place] [address] [place] [id number] [address] [place] [address] March, Anxiety F41.9 ; Depression F 32.9 ; Atherosclerotic heart disease of [place] coronary 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 ; Hypercholesterolemia with hypertriglyceridemia E78.2 ; Right wrist tendonitis M77.8 and Environmental allergies Z91.09 [place] [address] [facility] [id number] [place] [id number] Dec, [place] [address] [address] Nov, Iron deficiency anemia, unsp ecified iron deficiency anemia type D50.9 ; Anxiety F41.9 ; Dysthymia (or depressive neurosis) F34.1 and Hypercholesterolemia with hypertriglyceridemia E78.2 [place] [address] [place] [id number] [address] [place] [address] Oct, [place] [address] [address] Oct, [place] [address] [place] [id number] [address] [place] [address] Oct, Dysthymia (or depressive sherice rosis) F34.1 ; Atherosclerotic heart disease of [place] coronary 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 ; Coronary atherosclerosis due to lipid rich plaque I25.83 ; Hypercholesterolemia with hypertriglyceridemia E78.2 ; Iron deficiency anemia, unspecified iron deficiency anemia type D50.9 ; Hospital discharge follow-up Z09 ; History of PID Z87.42 ; Environmental allergies Z91.09 and Dysuria R30.0 [place] [address] [place] [id number] [address] [place] [address] Sep, [place] [address] [address] Sep, [place] [address] [address] Aug, Dysthymia F34.1 and Anxiety F41.9 [place] [address] [address] March, Coronary artery disease invo lving [place] coronary artery, angina presence unspecified, unspecified whether [place] or transplanted heart I25.10 ; Bipolar 1 disorder, depressed F31.9 ; Anxiety F41.9 and Dysthymia F34.1 [place] [address] [address] 04 Feb, 2016 Depression F32.9 and Stomach pain R10.9 [place] [address] [address] Jan, Hyperlipidemia 272.4 [place] [address] [address] 17 Dec, 2015 [place] [address] [address] 11 Dec, 2015 Major depressive disorder, r ecurrent episode, unspecified 296.30 ; Anxiety F41.9 ; Grief F43.20 and Dysthymia F34.1 [place] [address] [address] Dec, Anxiety F41.9 and Grief F43. 20 [place] [address] [address] Oct, Insomnia, unspecified G47.00 and Anxiety F41.9 [place] [address] [address] Oct, Dysthymia F34.1 ; Right shou lder pain M25.511 ; Sciatica, right M54.31 and Iron deficiency anemia, unspecified iron deficiency anemia type D50.9 [place] [address] [address] Sep, [facility] [address] [address] Sep, Grief F43.20 [facility] [address] [address] Sep, [facility] [address] [address] 05 Sep, 2015 [facility] [address] [address] Sep, Hyperlipidemia E78.5 ; CAD ( coronary artery disease) I25.10 and HTN (hypertension) I10 [place] [address] [address] Aug, Allergic rhinitis, unspecifi ed allergic rhinitis type J30.9 [place] [address] [address] Aug, Left-sided low back pain wit h right-sided sciatica M54.41 and Hyperlipidemia, unspecified hyperlipidemia E78.5 [place] [address] [address] Aug, Neck pain M54.2 and Low back pain M54.5 [place] [address] [address] Jun, [facility] [address] [address] Jun, [facility] [address] [address] Jun, CAD (coronary artery disease ) 414.00 ; Hyperlipidemia 272.4 and Anemia 285.9 [facility] [address] [address] 14 Feb, 2015 [facility] [address] [address] Feb, [facility] [address] [id number] [address] [place] [address], [place] [address] Jan, [facility] [address] [id number] [address] [place] [address], [place] [address] Jan, [facility] [address] [id number] [address] [place] [address], [place] [address] Jan, [facility] [address] [id number] [address] [place] [address], [place] [address] 16 Jan, 2015 [facility] [address] [id number] [address] [place] [address], [place] [address] Dec, [facility] [address] [id number] [address] [place] [address], [place] [address] Dec, 2014 [facility] [address] [id number] [address] [place] [address], [place] [address] Dec, 2014 [facility] [address] [id number] [address] [place] [address], [place] [address] Dec, 2014 [facility] [address] [id number] [address] [place] [address], [place] [address] Dec, 2014 [facility] [address] [id number] [address] [place] [address], [place] [address] Dec, 2014 [facility] [address] [id number] [address] [place] [address], [place] [address] Dec, 2014 [facility] [address] [id number] [address] [place] [address], [place] [address] 13 Dec, 2014 [facility] [address] [id number] [address] [place] [address], [place] [address] 12 Dec, 2014 [facility] [address] [id number] [address] [place] [address], [place] [address] Dec, 2014 [facility] [address] [id number] [address] [place] [address], [place] [address] 05 Fe2014 [facility] [address] [id number] [address] [place] [address], [place] [address] Dec, [facility] [address] [id number] [address] [place] [address], [place] [address] Nov, [facility] [address] [id number] [address] [place] [address], [place] [address] Nov, [facility] [address] [id number] [address] [place] [address], [place] [address] Nov, [facility] [address] [id number] [address] [place] [address], [place] [address] Nov, [facility] [address] [id number] [address] [place] [address], [place] [address] Oct, [facility] [address] [id number] [address] [place] [address], [place] [address] Oct, [facility] [address] [id number] [address] [place] [address], [place] [address] Sep, [facility] [address] [id number] [address] [place] [address], [place] [address] Sep, [facility] [address] [id number] [address] [place] [address], [place] [address] Aug, [facility] [address] [id number] [address] [place] [address], [place] [address] Aug, [facility] [address] [id number] [address] [place] [address], [place] [address] 30 Jul, 2014 [facility] [address] [id number] [address] [place] [address], [place] [address] 30 Jul, 2014 [facility] [address] [id number] [address] [place] [address], [place] [address] 16 Jul, 2014 [facility] [address] [id number] [address] [place] [address], [place] [address] 16 Jul, 2014 [facility] [address] [id number] [address] [place] [address], [place] [address] 15 Jul, 2013 [facility] [address] [id number] [facility] [place] [address] 12 Jul, 2014 [facility] [address] [id number] [facility] [place] [address] 12 Jul, 2014 [facility] [address] [id number] [facility] [place] [address] 11 Jul, 2014 [facility] [address] [id number] [address] [place] [address], [place] [address] 11 Jul, 2013 [facility] [address] [id number] [address] [place] [address], [place] [address] 10 Jul, 2014 [facility] [address] [id number] [address] [place] [address], [place] [address] 10 Jul, 2014 [facility] [address] [id number] [address] [place] [address], [place] [address] Jul, [facility] [address] [id number] [address] [place] [address], [place] [address] Jul, [facility] [address] [id number] [address] [place] [address], [place] [address] Jun, [facility] [address] [id number] [address] [place] [address], [place] [address] Jun, [facility] [address] [id number] [address] [place] [address], [place] [address] Jun, [facility] [address] [id number] [address] [place] [address], [place] [address] Jun, [facility] [address] [id number] [address] [place] [address], [place] [address] Jun, [facility] [address] [id number] [address] [place] [address], [place] [address] Jun, [facility] [address] [id number] [address] [place] [address], [place] [address] Jun, [facility] [address] [id number] [facility] [place] [address] Jun, [facility] [address] [id number] [facility] [place] [address] May, [facility] [address] [id number] [facility] [place] [address] May, [facility] [address] [id number] [address] [place] [address], [place] [address] Apr, [facility] [address] [id number] [address] [place] [address], [place] [address] Apr, [facility] [address] [id number] [address] [place] [address], [place] [address] Apr, [facility] [address] [id number] [address] [place] [address], [place] [address] Apr, [facility] [address] [id number] [address] [place] [address], [place] [address] March, [facility] [address] [id number] [address] [place] [address], [place] [address] March, [facility] [address] [id number] [address] [place] [address], [place] [address] March, [facility] [address] [id number] [address] [place] [address], [place] [address] March, [facility] [address] [id number] [address] [place] [address], [place] [address] March, [facility] [address] [id number] [address] [place] [address], [place] [address] March, [facility] [address] [id number] [address] [place] [address], [place] [address] March, [facility] [address] [id number] [address] [place] [address], [place] [address] March, [facility] [address] [id number] [address] [place] [address], [place] [address] March, [facility] [address] [id number] [address] [place] [address], [place] [address] March, [facility] [address] [id number] [address] [place] [address], [place] [address] March, [facility] [address] [id number] [address] [place] [address], [place] [address] Nov, [facility] [address] [id number] [address] [place] [address], [place] [address] Nov, [facility] [address] [id number] [address] [place] [address], [place] [address] Nov, [facility] [address] [id number] [address] [place] [address], [place] [address] Oct, [facility] [address] [id number] [address] [place] [address], [place] [address] Oct, [facility] [address] [id number] [address] [place] [address], [place] [address] Aug, [facility] [address] [id number] [address] [place] [address], [place] [address] Aug, [facility] [place] [address] [id number] [place] [id number] Jun, [facility] [place] [address] [id number] [place] [id number] Apr, [facility] [address] [id number] [address] [place] [address], [place] [address] Apr, [facility] [address] [id number] [address] [place] [address], [place] [address] Apr, [facility] [place] [address] [id number] [place] [id number] March, [facility] [place] [address] [id number] [place] [id number] Feb, [facility] [place] [address] [id number] [place] [id number] Jan, [facility] [address] [id number] [address] [place] [address] Jan, [facility] [address] [facility] [id number] [address] [place] [address] Jan, [facility] [address] [facility] [id number] [address] [place] [address] Jan, [facility] [place] [address] [id number] [place] [id number] Dec, [facility] [place] [address] [id number] [place] [id number] Dec, [facility] [address] [facility] [id number] [address] [place] [address] Dec, [facility] [address] [facility] [id number] [address] [place] [address] Dec, [facility] [address] [facility] [id number] [address] [place] [address] Dec, [facility] [address] [facility] [id number] [address] [place] [address] Nov, [facility] [address] [facility] [id number] [address] [place] [address] Nov, [facility] [place] [address] [id number] [place] [id number] Nov, [facility] [address] [facility] [id number] [address] [place] [address] Nov, [facility] [place] [address] [id number] [place] [id number] Nov, [facility] [place] [address] [id number] [place] [id number] Nov, [facility] [place] [address] [id number] [place] [id number] Oct, [facility] [place] [address] [id number] [place] [id number] Oct, [facility] [address] [id number] [address] [place] [address] Oct, [facility] [address] [facility] [id number] [address] [place] [address] Oct, [facility] [address] [facility] [id number] [address] [place] [address] Oct, [facility] [address] [facility] [id number] [address] [place] [address] Sep, [facility] [address] [facility] [id number] [address] [place] [address] Sep, [facility] [place] [address] [id number] [place] [id number] Sep, [facility] [place] [address] [id number] [place] [id number] Sep, [facility] [place] [address] [id number] [place] [id number] Sep, [facility] [address] [facility] [id number] [address] [place] [address] Sep, [facility] [address] [facility] [id number] [address] [place] [address] Aug, [facility] [place] [address] [id number] [place] [id number] Aug, [facility] [address] [facility] [id number] [address] [place] [address] Aug, [facility] [place] [address] [id number] [place] [id number] Jul, [facility] [place] [address] [id number] [place] [id number] Jul, [facility] [place] [address] [id number] [place] [id number] Jun, [facility] [place] [address] [id number] [place] [id number] May, [facility] [place] [address] [id number] [place] [id number] Feb, [facility] [place] [address] [id number] [place] [id number] Feb, [facility] [address] [id number] [place] [id number] Feb, [facility] [address] [id number] [place] [id number] Dec, [facility] [address] [id number] [place] [id number] Dec, [facility] [address] [id number] [address] [place] [id number] Oct, [facility] [address] [id number] [address] [place] [id number] Sep, [facility] [address] [id number] [address] [place] [id number] Sep, [facility] [address] [id number] [address] [place] [id number] Sep, [facility] [address] [id number] [address] [place] [id number] Sep, [facility] [address] [id number] [address] [place] [id number] March, [facility] [address] [id number] [address] [place] [id number] Sep, [facility] [address] [id number] [address] [place] [id number] Jul, [facility] [address] [id number] [address] [place] [id number] May, [facility] [address] [id number] [address] [place] [phone] Jan, [facility] [address] [facility] [id number] [address] [place] [phone] Sep, [facility] [address] [facility] [id number] [address] [place] [id number] Aug, IMMUNIZATIONS No Known Immunizations SOCIAL HISTORY [...]
--- OUTSIDE RECORDS SUMMARY | 2020-05-31 11:41 | XMS REPORT ---
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 Name Role Phone NIKA WOLFF Unavailable PROBLEMS Type Condition ICD9-CM Code PRZ70-SM Code Onset Dates Condition S tatus SNOMED Code Problem Depression F32.9 Active 78213650 Problem Anxiety F41.9 Active 26366611 Problem Environmental allergies Z91.09 Active 101445898 Problem Atherosclerotic heart diseas e of [place] coronary 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 Active 242267609 Problem Lumbago with sciatica, unspecified side M54.40 Active 835868016 Problem Chronic pain syndrome G89.4 Active 825389835 Problem Hypercholesterolemia with hypertriglyceridemia E78 .2 Active 291146432 Problem Major depressive disorder, recurrent sev ere without psychotic features F33.2 Active 72402681 Problem Dysthymia (or depressive neurosis) F34.1 Active 35617275 Problem Cigarette nicotine dependence without complication F17.210 Active 02901833 Problem Alcohol use disorder, moderate, in sustained remission F10.21 Active 46142071 Problem Cannabis use disorder, mild, abuse F12.10 Active 32915532 Problem Elevated blood pressure I10 Active 18886999 ALLERGIES No Information ENCOUNTERS Encounter Location Date Diagnosis [facility] [address] [facility] [id number] [address] [place] [address] Dec, [facility] [address] [facility] [id number] [address] [place] [address] Dec, Major depressive disorder, r ecurrent severe without psychotic features F33.2 ; Chronic pain syndrome G89.4 and Encounter for immunization Z23 [facility] [address] [id number] [id number] Aug, Elevated blood pressure I10 [facility] [address] [facility] [id number] [address] [place] [address] 17 May, 2018 Hypercholesterolemia with hy pertriglyceridemia E78.2 and Atherosclerotic heart disease of [place] coronary 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 [facility] [address] [facility] [id number] [address] [place] [address] 11 Mar, 2018 Lumbago with sciatica, unspe cified side M54.40 ; Environmental allergies Z91.09 ; Hypercholesterolemia with hypertriglyceridemia E78.2 and Atherosclerotic heart disease of [place] coronary 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 [facility] [address] [facility] [id number] [address] [place] [id number] 14 Dec, 2017 Severe episode of recurrent major depressive disorder, without psychotic features F33.2 ; Alcohol use disorder, moderate, in sustained remission F10.21 and Cannabis use disorder, mild, abuse F12.10 [facility] [address] [place] [id number] [address] [place] [address] 12 Dec, 2017 Severe episode of recurrent major depressive disorder, without psychotic features F33.2 [facility] [address] [facility] [id number] [address] [place] [address] 18 Nov, 2017 [facility] [address] [facility] [id number] [address] [place] [address] 08 Nov, 2017 Atherosclerotic heart diseas e of [place] coronary 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 ; Hypercholesterolemia with hypertriglyceridemia E78.2 ; Depression F32.9 and Cigarette nicotine dependence without complication F17.210 [facility] [address] [facility] [id number] [address] [place] [address] Oct, [facility] [address] [id number] [address] [place] [address] Jul, [facility] [address] [facility] [id number] [address] [place] [address] Jun, [facility] [address] [facility] [id number] [address] [place] [address] Apr, Pain in thoracic spine M54.6 and Lumbago with sciatica, unspecified side M54.40 [place] [address] [facility] [id number] [address] [place] [address] March, [place] [address] [address] March, Depression F32.9 [place] [address] [place] [id number] [address] [place] [address] March, Anxiety F41.9 ; Depression F 32.9 ; Atherosclerotic heart disease of [place] coronary 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 ; Hypercholesterolemia with hypertriglyceridemia E78.2 ; Right wrist tendonitis M77.8 and Environmental allergies Z91.09 [place] [address] [facility] [id number] [place] [id number] Dec, [place] [address] [address] Nov, Iron deficiency anemia, unsp ecified iron deficiency anemia type D50.9 ; Anxiety F41.9 ; Dysthymia (or depressive neurosis) F34.1 and Hypercholesterolemia with hypertriglyceridemia E78.2 [place] [address] [place] [id number] [address] [place] [address] Oct, [place] [address] [address] Oct, [place] [address] [place] [id number] [address] [place] [address] Oct, Dysthymia (or depressive sherice rosis) F34.1 ; Atherosclerotic heart disease of [place] coronary 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 ; Coronary atherosclerosis due to lipid rich plaque I25.83 ; Hypercholesterolemia with hypertriglyceridemia E78.2 ; Iron deficiency anemia, unspecified iron deficiency anemia type D50.9 ; Hospital discharge follow-up Z09 ; History of PID Z87.42 ; Environmental allergies Z91.09 and Dysuria R30.0 [place] [address] [place] [id number] [address] [place] [address] Sep, [place] [address] [address] Sep, [place] [address] [address] Aug, Dysthymia F34.1 and Anxiety F41.9 [place] [address] [address] March, Coronary artery disease invo lving [place] coronary artery, angina presence unspecified, unspecified whether [place] or transplanted heart I25.10 ; Bipolar 1 disorder, depressed F31.9 ; Anxiety F41.9 and Dysthymia F34.1 [place] [address] [address] 04 Feb, 2016 Depression F32.9 and Stomach pain R10.9 [place] [address] [address] Jan, Hyperlipidemia 272.4 [place] [address] [address] 17 Dec, 2015 [place] [address] [address] 11 Dec, 2015 Major depressive disorder, r ecurrent episode, unspecified 296.30 ; Anxiety F41.9 ; Grief F43.20 and Dysthymia F34.1 [place] [address] [address] Dec, Anxiety F41.9 and Grief F43. 20 [place] [address] [address] Oct, Insomnia, unspecified G47.00 and Anxiety F41.9 [place] [address] [address] Oct, Dysthymia F34.1 ; Right shou lder pain M25.511 ; Sciatica, right M54.31 and Iron deficiency anemia, unspecified iron deficiency anemia type D50.9 [place] [address] [address] Sep, [facility] [address] [address] Sep, Grief F43.20 [facility] [address] [address] Sep, [facility] [address] [address] 05 Sep, 2015 [facility] [address] [address] Sep, Hyperlipidemia E78.5 ; CAD ( coronary artery disease) I25.10 and HTN (hypertension) I10 [place] [address] [address] Aug, Allergic rhinitis, unspecifi ed allergic rhinitis type J30.9 [place] [address] [address] Aug, Left-sided low back pain wit h right-sided sciatica M54.41 and Hyperlipidemia, unspecified hyperlipidemia E78.5 [place] [address] [address] Aug, Neck pain M54.2 and Low back pain M54.5 [place] [address] [address] Jun, [facility] [address] [address] Jun, [facility] [address] [address] Jun, CAD (coronary artery disease ) 414.00 ; Hyperlipidemia 272.4 and Anemia 285.9 [facility] [address] [address] 14 Feb, 2015 [facility] [address] [address] Feb, [facility] [address] [id number] [address] [place] [address], [place] [address] Jan, [facility] [address] [id number] [address] [place] [address], [place] [address] Jan, [facility] [address] [id number] [address] [place] [address], [place] [address] Jan, [facility] [address] [id number] [address] [place] [address], [place] [address] 16 Jan, 2015 [facility] [address] [id number] [address] [place] [address], [place] [address] Dec, [facility] [address] [id number] [address] [place] [address], [place] [address] Dec, 2014 [facility] [address] [id number] [address] [place] [address], [place] [address] Dec, 2014 [facility] [address] [id number] [address] [place] [address], [place] [address] Dec, 2014 [facility] [address] [id number] [address] [place] [address], [place] [address] Dec, 2014 [facility] [address] [id number] [address] [place] [address], [place] [address] Dec, 2014 [facility] [address] [id number] [address] [place] [address], [place] [address] Dec, 2014 [facility] [address] [id number] [address] [place] [address], [place] [address] 13 Dec, 2014 [facility] [address] [id number] [address] [place] [address], [place] [address] 12 Dec, 2014 [facility] [address] [id number] [address] [place] [address], [place] [address] Dec, 2014 [facility] [address] [id number] [address] [place] [address], [place] [address] 05 Fe2014 [facility] [address] [id number] [address] [place] [address], [place] [address] Dec, [facility] [address] [id number] [address] [place] [address], [place] [address] Nov, [facility] [address] [id number] [address] [place] [address], [place] [address] Nov, [facility] [address] [id number] [address] [place] [address], [place] [address] Nov, [facility] [address] [id number] [address] [place] [address], [place] [address] Nov, [facility] [address] [id number] [address] [place] [address], [place] [address] Oct, [facility] [address] [id number] [address] [place] [address], [place] [address] Oct, [facility] [address] [id number] [address] [place] [address], [place] [address] Sep, [facility] [address] [id number] [address] [place] [address], [place] [address] Sep, [facility] [address] [id number] [address] [place] [address], [place] [address] Aug, [facility] [address] [id number] [address] [place] [address], [place] [address] Aug, [facility] [address] [id number] [address] [place] [address], [place] [address] 30 Jul, 2014 [facility] [address] [id number] [address] [place] [address], [place] [address] 30 Jul, 2014 [facility] [address] [id number] [address] [place] [address], [place] [address] 16 Jul, 2014 [facility] [address] [id number] [address] [place] [address], [place] [address] 16 Jul, 2014 [facility] [address] [id number] [address] [place] [address], [place] [address] 15 Jul, 2013 [facility] [address] [id number] [facility] [place] [address] 12 Jul, 2014 [facility] [address] [id number] [facility] [place] [address] 12 Jul, 2014 [facility] [address] [id number] [facility] [place] [address] 11 Jul, 2014 [facility] [address] [id number] [address] [place] [address], [place] [address] 11 Jul, 2013 [facility] [address] [id number] [address] [place] [address], [place] [address] 10 Jul, 2014 [facility] [address] [id number] [address] [place] [address], [place] [address] 10 Jul, 2014 [facility] [address] [id number] [address] [place] [address], [place] [address] Jul, [facility] [address] [id number] [address] [place] [address], [place] [address] Jul, [facility] [address] [id number] [address] [place] [address], [place] [address] Jun, [facility] [address] [id number] [address] [place] [address], [place] [address] Jun, [facility] [address] [id number] [address] [place] [address], [place] [address] Jun, [facility] [address] [id number] [address] [place] [address], [place] [address] Jun, [facility] [address] [id number] [address] [place] [address], [place] [address] Jun, [facility] [address] [id number] [address] [place] [address], [place] [address] Jun, [facility] [address] [id number] [address] [place] [address], [place] [address] Jun, [facility] [address] [id number] [facility] [place] [address] Jun, [facility] [address] [id number] [facility] [place] [address] May, [facility] [address] [id number] [facility] [place] [address] May, [facility] [address] [id number] [address] [place] [address], [place] [address] Apr, [facility] [address] [id number] [address] [place] [address], [place] [address] Apr, [facility] [address] [id number] [address] [place] [address], [place] [address] Apr, [facility] [address] [id number] [address] [place] [address], [place] [address] Apr, [facility] [address] [id number] [address] [place] [address], [place] [address] March, [facility] [address] [id number] [address] [place] [address], [place] [address] March, [facility] [address] [id number] [address] [place] [address], [place] [address] March, [facility] [address] [id number] [address] [place] [address], [place] [address] March, [facility] [address] [id number] [address] [place] [address], [place] [address] March, [facility] [address] [id number] [address] [place] [address], [place] [address] March, [facility] [address] [id number] [address] [place] [address], [place] [address] March, [facility] [address] [id number] [address] [place] [address], [place] [address] March, [facility] [address] [id number] [address] [place] [address], [place] [address] March, [facility] [address] [id number] [address] [place] [address], [place] [address] March, [facility] [address] [id number] [address] [place] [address], [place] [address] March, [facility] [address] [id number] [address] [place] [address], [place] [address] Nov, [facility] [address] [id number] [address] [place] [address], [place] [address] Nov, [facility] [address] [id number] [address] [place] [address], [place] [address] Nov, [facility] [address] [id number] [address] [place] [address], [place] [address] Oct, [facility] [address] [id number] [address] [place] [address], [place] [address] Oct, [facility] [address] [id number] [address] [place] [address], [place] [address] Aug, [facility] [address] [id number] [address] [place] [address], [place] [address] Aug, [facility] [address] [id number] [place] [id number] Jun, [facility] [address] [id number] [place] [id number] Apr, [facility] [address] [id number] [address] [place] [address], [place] [address] Apr, [facility] [address] [id number] [address] [place] [address], [place] [address] Apr, [facility] [place] [address] [id number] [place] [id number] March, [facility] [address] [id number] [place] [id number] Feb, [facility] [address] [id number] [place] [id number] Jan, [facility] [address] [id number] [address] [place] [address] Jan, [facility] [address] [facility] [id number] [address] [place] [address] Jan, [facility] [address] [facility] [id number] [address] [place] [address] Jan, [facility] [place] [address] [id number] [place] [id number] Dec, [facility] [place] [address] [id number] [place] [id number] Dec, [facility] [address] [facility] [id number] [address] [place] [address] Dec, [facility] [address] [facility] [id number] [address] [place] [address] Dec, [facility] [address] [facility] [id number] [address] [place] [address] Dec, [facility] [address] [facility] [id number] [address] [place] [address] Nov, [facility] [address] [facility] [id number] [address] [place] [address] Nov, [facility] [place] [address] [id number] [place] [id number] Nov, [facility] [address] [facility] [id number] [address] [place] [address] Nov, [facility] [place] [address] [id number] [place] [id number] Nov, [facility] [place] [address] [id number] [place] [id number] Nov, [facility] [place] [address] [id number] [place] [id number] Oct, [facility] [place] [address] [id number] [place] [id number] Oct, [facility] [address] [id number] [address] [place] [address] Oct, [facility] [address] [facility] [id number] [address] [place] [address] Oct, [facility] [address] [facility] [id number] [address] [place] [address] Oct, [facility] [address] [facility] [id number] [address] [place] [address] Sep, [facility] [address] [facility] [id number] [address] [place] [address] Sep, [facility] [address] [id number] [place] [id number] Sep, [facility] [address] [id number] [place] [id number] Sep, [facility] [address] [id number] [place] [id number] Sep, [facility] [address] [facility] [id number] [address] [place] [address] Sep, [facility] [address] [facility] [id number] [address] [place] [address] Aug, [facility] [address] [id number] [place] [id number] Aug, [facility] [address] [facility] [id number] [address] [place] [address] Aug, [facility] [place] [address] [id number] [place] [id number] Jul, [facility] [place] [address] [id number] [place] [id number] Jul, [facility] [place] [address] [id number] [place] [id number] Jun, [facility] [place] [address] [id number] [place] [id number] May, [facility] [place] [address] [id number] [place] [id number] Feb, [facility] [place] [address] [id number] [place] [id number] Feb, [facility] [address] [id number] [place] [id number] Feb, [facility] [address] [id number] [place] [id number] Dec, [facility] [address] [id number] [place] [id number] Dec, [facility] [address] [id number] [address] [place] [id number] Oct, [facility] [address] [id number] [address] [place] [id number] Sep, [facility] [address] [id number] [address] [place] [phone] Sep, [facility] [address] [id number] [address] [place] [phone] Sep, [facility] [address] [id number] [address] [place] [id number] Sep, [facility] [address] [id number] [address] [place] [id number] March, [facility] [address] [id number] [address] [place] [phone] Sep, [facility] [address] [id number] [address] [place] [phone] Jul, [facility] [address] [id number] [address] [place] [id number] May, [facility] [address] [id number] [address] [place] [phone] Jan, [facility] [address] [facility] [id number] [address] [place] [phone] Sep, [facility] [address] [facility] [id number] [address] [place] [phone] Aug, IMMUNIZATIONS No Known Immunizations SOCIAL HISTORY Never Assessed REASON FOR VISIT PLAN OF CARE VITAL SIGNS Height 60 in 2013-12-07 Weight 12.7 lbs 2013-12-07 Temperature 97.6 degrees Fahrenheit 2013-12-07 Heart Rate 72 bpm 2013-12-07 Respiratory Rate 18 2013-12-07 Blood pressure systolic 116 mmHg 2013-12-07 Blood pressure diastolic 78 mmHg 2013-12-07 MEDICATIONS Unknown Medications RESULTS No Results PROCEDURES [...]
--- OUTSIDE RECORDS SUMMARY | 2020-05-31 11:41 | XMS REPORT ---
Author Author Jeane WOLFF Organization [facility] Address [address] [place] [address] Care Team Providers Care Heel Sprayer Name Role Phone NIKA WOLFF Unavailable PROBLEMS Type Condition ICD9-CM Code CZG35-GM Code Onset Dates Condition S tatus SNOMED Code Problem Depression F32.9 Active 37781942 Problem Anxiety F41.9 Active 41513451 Problem Environmental allergies Z91.09 Active 764858580 Problem Atherosclerotic heart diseas e of [place] coronary 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 Active 435704632 Problem Lumbago with sciatica, unspecified side M54.40 Active 180180693 Problem Chronic pain syndrome G89.4 Active 931324467 Problem Hypercholesterolemia with hypertriglyceridemia E78 .2 Active 918504468 Problem Major depressive disorder, recurrent sev ere without psychotic features F33.2 Active 85772598 Problem Dysthymia (or depressive neurosis) F34.1 Active 06381918 Problem Cigarette nicotine dependence without complication F17.210 Active 45287705 Problem Alcohol use disorder, moderate, in sustained remission F10.21 Active 42427232 Problem Cannabis use disorder, mild, abuse F12.10 Active 84437919 Problem Elevated blood pressure I10 Active 97780853 ALLERGIES No Information ENCOUNTERS Encounter Location Date Diagnosis [facility] [place] [address] [id number] [place] [address] Dec, Major depressive disorder, recurrent sev ere without psychotic features F33.2 ; Chronic pain syndrome G89.4 and Encounter for immunization Z23 [facility] [address] [facility] [place], [place] [id number] Aug, Elevated blood pressure I10 [facility] [place] [address] [id number] [place] [address] May, Hypercholesterolemia with hypertriglycer idemia E78.2 and Atherosclerotic heart disease of [place] coronary 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 [place] [address] [address] 11 Mar, 2018 Lumbago with sciatica, unspecified side M54.40 ; Environmental allergies Z91.09 ; Hypercholesterolemia with hypertriglyceridemia E78.2 and Atherosclerotic heart disease of [place] coronary 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 [place] [address] [address] 14 Dec, 2017 Severe episode of recurrent major depres sive disorder, without psychotic features F33.2 ; Alcohol use disorder, moderate, in sustained remission F10.21 and Cannabis use disorder, mild, abuse F12.10 [place] [address] [address] 12 Dec, 2017 Severe episode of recurrent major depres sive disorder, without psychotic features F33.2 [place] [address] [address] Nov, [place] [address] [address] 08 Nov, 2017 Atherosclerotic heart disease of [place] coronary 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 ; Hypercholesterolemia with hypertriglyceridemia E78.2 ; Depression F32.9 and Cigarette nicotine dependence without complication F17.210 [place] [address] [address] Oct, [place] [address] [address] Jul, [place] [address] [address] Jun, [place] [address] [address] Apr, Pain in thoracic spine M54.6 and Lumbago with sciatica, unspecified side M54.40 [place] [address] [address] March, [place] [address] [address] March, Depression F32.9 [place] [address] [address] March, Anxiety F41.9 ; Depression F32.9 ; Ather osclerotic heart disease of [place] coronary 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 ; Hypercholesterolemia with hypertriglyceridemia E78.2 ; Right wrist tendonitis M77.8 and Environmental allergies Z91.09 [facility] [address] [facility] [place] [id number] Dec, [place] [address] [address] Nov, Iron deficiency anemia, unspecified iron deficiency anemia type D50.9 ; Anxiety F41.9 ; Dysthymia (or depressive neurosis) F34.1 and Hypercholesterolemia with hypertriglyceridemia E78.[address] [address] Oct, [address] [address] Oct, [address] [address] Oct, Dysthymia (or depressive neurosis) F34.1 ; Atherosclerotic heart disease of [place] coronary 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 ; Coronary atherosclerosis due to lipid rich plaque I25.83 ; Hypercholesterolemia with hypertriglyceridemia E78.2 ; Iron deficiency anemia, unspecified iron deficiency anemia type D50.9 ; Hospital discharge follow-up Z09 ; History of PID Z87.42 ; Environmental allergies Z91.09 and Dysuria R30.[address] [address] Sep, [address] [address] Sep, [address] [address] Aug, Dysthymia F34.1 and Anxiety F41.[address] [address] March, Coronary artery disease involving [place] coronary artery, angina presence unspecified, unspecified whether [place] or transplanted heart I25.10 ; Bipolar 1 disorder, depressed F31.9 ; Anxiety F41.9 and Dysthymia F34.1 [place] [address] [address] 04 Feb, 2016 Depression F32.9 and Stomach pain R10.9 [place] [address] [address] Jan, Hyperlipidemia 272.4 [place] [address] [address] 17 Dec, [address] [address] Dec, Major depressive disorder, recurrent epi sode, unspecified 296.30 ; Anxiety F41.9 ; Grief F43.20 and Dysthymia F34.1 [place] [address] [address] Dec, Anxiety F41.9 and Grief F43.[address] [address] Oct, Insomnia, unspecified G47.00 and Anxiety F41.[address] [address] Oct, Dysthymia F34.1 ; Right shoulder pain M2 5.511 ; Sciatica, right M54.31 and Iron deficiency anemia, unspecified iron deficiency anemia type D50.9 [place] [address] [address] Sep, [address] [address] Sep, Grief F43.20 [place] [address] [address] Sep, [address] [address] Sep, [facility] [place] [address] [address] Sep, Hyperlipidemia E78.5 ; CAD (coronary art yina disease) I25.10 and HTN (hypertension) I10 [place] [address] [address] Aug, Allergic rhinitis, unspecified allergic rhinitis type J30.9 [place] [address] [address] Aug, Left-sided low back pain with right-side d sciatica M54.41 and Hyperlipidemia, unspecified hyperlipidemia E78.5 [place] [address] [address] Aug, Neck pain M54.2 and Low back pain M54.5 [place] [address] [address] Jun, [place] [address] [address] Jun, [place] [address] [address] Jun, CAD (coronary artery disease) 414.00 ; H yperlipidemia 272.4 and Anemia 285.9 [place] [address] [address] Feb, [place] [address] [address] Feb, [place] [address] [address] Jan, [place] [address] [address] Jan, [facility] [place] [address] [address] Jan, [place] [address] [address] Jan, [facility] [address] [id number] [place] [address] Dec, [facility] [address] [id number] [place] [address] Dec, [facility] [address] [id number] [place] [address] Dec, [facility] [address] [id number] [place] [address] Dec, [facility] [address] [id number] [place] [address] Dec, [facility] [address] [id number] [place] [address] Dec, [facility] [address] [id number] [place] [address] Dec, [facility] [address] [id number] [place] [address] Dec, 2014 [facility] [address] [id number] [place] [address] Dec, [facility] [address] [id number] [place] [address] Dec, [facility] [address] [id number] [place] [address] Dec, [facility] [address] [id number] [place] [address] Dec, [facility] [address] [id number] [place] [address] Nov, [facility] [address] [id number] [place] [address] Nov, [facility] [address] [id number] [place] [address] Nov, [facility] [address] [id number] [place] [address] Nov, [facility] [address] [id number] [place] [address] Oct, [facility] [address] [id number] [place] [address] Oct, [facility] [address] [id number] [place] [address] Sep, [facility] [address] [id number] [place] [address] Sep, [facility] [address] [id number] [place] [address] Aug, [facility] [address] [id number] [place] [address] Aug, [facility] [address] [id number] [place] [address] 30 Jul, 2014 [facility] [address] [id number] [place] [address] 30 Jul, 2014 [facility] [address] [id number] [place] [address] 16 Jul, 2013 [facility] [address] [id number] [place] [address] 16 Jul, 2014 [facility] [address] [id number] [place] [address] 15 Jul, 2014 [facility] [address] [id number] [place] [address] 12 Jul, 2014 [facility] [address] [id number] [place] [address] 12 Jul, 2013 [facility] [address] [id number] [place] [address] 11 Jul, 2013 [facility] [address] [id number] [place] [address] 11 Jul, 2013 [facility] [address] [id number] [place] [address] 10 Jul, 2013 [facility] [address] [id number] [place] [address] Jul, [facility] [address] [id number] [place] [address] Jul, [facility] [address] [facility] [id number] [facility] [address] Jul, [facility] [address] [facility] [id number] [place] [address] Jun, [facility] [address] [facility] [id number] [facility] [address] Jun, [facility] [address] [facility] [id number] [facility] [address] Jun, [facility] [address] [id number] [place] [address] Jun, [facility] [address] [id number] [place] [address] Jun, [facility] [address] [id number] [place] [address] Jun, [facility] [address] [facility] [id number] [place] [address] Jun, [facility] [address] [id number] [place] [address] Jun, [facility] [address] [id number] [place] [address] May, [facility] [address] [id number] [place] [address] May, [facility] [address] [facility] [id number] [place] [address] Apr, [facility] [address] [id number] [place] [address] Apr, [facility] [address] [facility] [id number] [place] [address] Apr, [facility] [address] [id number] [place] [address] Apr, [facility] [address] [facility] [id number] [place] [address] March, [facility] [address] [facility] [id number] [place] [address] March, [facility] [address] [facility] [id number] [place] [address] March, [facility] [address] [id number] [place] [address] March, [facility] [address] [id number] [place] [address] March, [facility] [address] [facility] [id number] [place] [address] March, [facility] [address] [id number] [place] [address] March, [facility] [address] [id number] [place] [address] March, [facility] [address] [id number] [place] [address] March, [facility] [address] [id number] [place] [address] March, [facility] [address] [id number] [place] [address] March, [facility] [address] [id number] [place] [address] Nov, [facility] [address] [id number] [place] [address] Nov, [facility] [address] [facility] [id number] [place] [address] Nov, [facility] [address] [id number] [place] [address] Oct, [facility] [address] [id number] [place] [address] Oct, [facility] [address] [id number] [place] [address] Aug, [facility] [address] [place] [id number] [place] [address] Aug, [facility] [address] [facility] [id number] Jun, [facility] [address] [facility] [id number] Apr, [facility] [address] [place] [id number] [place] [address] Apr, [facility] [address] [place] [id number] [place] [address] Apr, [facility] [address] [facility] [id number] March, [facility] [address] [place] [id number] [place] [id number] Feb, [facility] [address] [facility] [id number] Jan, [facility] [address] [place] [id number] [place] [address] Jan, [facility] [address] [place] [id number] [place] [address] Jan, [facility] [address] [place] [id number] [place] [address] Jan, [facility] [address] [facility] [id number] Dec, [facility] [address] [facility] [address] Dec, [facility] [address] [place] [id number] [place] [address] Dec, [facility] [address] [place] [id number] [place] [address] Dec, [facility] [address] [place] [id number] [place] [address] Dec, [facility] [address] [place] [id number] [place] [address] Nov, [facility] [address] [place] [id number] [place] [address] Nov, [facility] [address] [place] [id number] [id number] Nov, [facility] [address] [place] [id number] [place] [address] Nov, [facility] [address] [place] [id number] [id number] Nov, [facility] [address] [place] [id number] [address] Nov, [facility] [address] [place] [id number] [address] Oct, [facility] [address] [place] [id number] [place] [address], [place] [id number] Oct, [facility] [address] [place] [id number] [place] [address] Oct, [facility] [address] [place] [id number] [place] [address] Oct, [facility] [address] [place] [id number] [place] [address] Oct, [facility] [address] [place] [id number] [place] [address] Sep, [facility] [address] [place] [id number] [place] [address] Sep, [facility] [address] [id number] [address] Sep, [facility] [place] [address] [place] [id number] [address] Sep, [facility] [address] [place] [id number] [address] Sep, [facility] [address] [place] [id number] [place] [address] Sep, [facility] [address] [place] [id number] [place] [address] Aug, [facility] [address] [place] [id number] [address] Aug, [facility] [address] [place] [id number] [place] [address] Aug, [facility] [address] [id number] [place] [id number] Jul, [facility] [address] [id number] [place] [id number] Jul, [facility] [address] [id number] [place] [address] Jun, [facility] [address] [id number] [id number] May, [facility] [address] [id number] [id number] Feb, [facility] [address] [id number] [id number] Feb, [facility] [address] [id number] [place] [id number] Feb, [facility] [address] [facility] [address] Dec, [facility] [address] [facility] [id number] Dec, [facility] [address] [place] [id number] [place] [address] Oct, [facility] [address] [place] [id number] [place] [address] Sep, [facility] [address] [place] [id number] [place] [address] Sep, [facility] [address] [address] Sep, [facility] [address] [place] [id number] [place] [address] Sep, [facility] [address] [address] March, [facility] [address] [place] [id number] [place] [address] Sep, [facility] [address] [place] [id number] [place] [address] Jul, [facility] [address] [place] [id number] [place] [address] May, [facility] [address] [id number] [place] [address] Jan, [facility] [address] [id number] [place] [address] Sep, [facility] [address] [id number] [place] [address] Aug, IMMUNIZATIONS No Known Immunizations SOCIAL HISTORY Never Assessed REASON FOR VISIT PLAN OF CARE VITAL SIGNS MEDICATIONS No Known Medications RESULTS No Results PROCEDURES Procedure Date Ordered Result Body Site COMPLETE CBC W/AUTO DIFF WBC April 09, 2014 RBC SED RATE, NONAUTOMATED April 09, 2014 AUTOMATED RETICULOCYTE COUNT April 09, 2014 CHEST X-RAY April 09, 2014 VENIPUNCT, ROUTINE* April 09, 2014 INSTRUCTIONS MEDICATIONS ADMINISTERED No Known Medications MEDICAL [...]
--- OUTSIDE RECORDS SUMMARY | 2020-05-31 11:41 | XMS REPORT ---
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 Active 759394456 Problem Lumbago with sciatica, unspecified side M54.40 Active 189280569 Problem Chronic pain syndrome G89.4 Active 875130229 Problem Hypercholesterolemia with hypertriglyceridemia E78 .2 Active 678737330 Problem Major depressive disorder, recurrent sev ere without psychotic features F33.2 Active 70339890 Problem Dysthymia (or depressive neurosis) F34.1 Active 99320559 Problem Cigarette nicotine dependence without complication F17.210 Active 60781268 Problem Alcohol use disorder, moderate, in sustained remission F10.21 Active 49226354 Problem Cannabis use disorder, mild, abuse F12.10 Active 99966183 Problem Elevated blood pressure I10 Active 66549383 ALLERGIES No Information ENCOUNTERS Encounter Location Date Diagnosis [facility] [address] [id number] [place] [address] Dec, Major depressive disorder, recurrent sev ere without psychotic features F33.2 ; Chronic pain syndrome G89.4 and Encounter for immunization Z23 [facility] [address] [id number] [place] [id number] Aug, Elevated blood pressure I10 [facility] [address] [id number] [place] [address] May, Hypercholesterolemia with hypertriglycer idemia E78.2 and Atherosclerotic heart disease of iliamna coronary 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 [place] [address] [address] 11 Mar, 2018 Lumbago with sciatica, unspecified side M54.40 ; Environmental allergies Z91.09 ; Hypercholesterolemia with hypertriglyceridemia E78.2 and Atherosclerotic heart disease of iliamna coronary 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 [place] [address] [address] 14 Dec, 2017 Severe episode of recurrent major depres sive disorder, without psychotic features F33.2 ; Alcohol use disorder, moderate, in sustained remission F10.21 and Cannabis use disorder, mild, abuse F12.10 [place] [address] [address] 12 Dec, 2017 Severe episode of recurrent major depres sive disorder, without psychotic features F33.2 [place] [address] [address] Nov, [place] [address] [address] 08 Nov, 2017 Atherosclerotic heart disease of iliamna coronary 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 ; Hypercholesterolemia with hypertriglyceridemia E78.2 ; Depression F32.9 and Cigarette nicotine dependence without complication F17.210 [place] [address] [address] Oct, [place] [address] [address] Jul, [place] [address] [address] Jun, [place] [address] [address] Apr, Pain in thoracic spine M54.6 and Lumbago with sciatica, unspecified side M54.40 [place] [address] [address] March, [place] [address] [address] March, Depression F32.9 [place] [address] [address] March, Anxiety F41.9 ; Depression F32.9 ; Ather osclerotic heart disease of iliamna coronary 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 ; Hypercholesterolemia with hypertriglyceridemia E78.2 ; Right wrist tendonitis M77.8 and Environmental allergies Z91.09 [facility] [address] [facility] [place] [id number] Dec, [place] [address] [address] Nov, Iron deficiency anemia, unspecified iron deficiency anemia type D50.9 ; Anxiety F41.9 ; Dysthymia (or depressive neurosis) F34.1 and Hypercholesterolemia with hypertriglyceridemia E78.[address] [address] Oct, [address] [address] Oct, [address] [address] Oct, Dysthymia (or depressive neurosis) F34.1 ; Atherosclerotic heart disease of iliamna coronary 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 ; Coronary atherosclerosis due to lipid rich plaque I25.83 ; Hypercholesterolemia with hypertriglyceridemia E78.2 ; Iron deficiency anemia, unspecified iron deficiency anemia type D50.9 ; Hospital discharge follow-up Z09 ; History of PID Z87.42 ; Environmental allergies Z91.09 and Dysuria R30.[address] [address] Sep, [address] [address] Sep, [address] [address] Aug, Dysthymia F34.1 and Anxiety F41.[address] [address] March, Coronary artery disease involving iliamna coronary artery, angina presence unspecified, unspecified whether iliamna or transplanted heart I25.10 ; Bipolar 1 disorder, depressed F31.9 ; Anxiety F41.9 and Dysthymia F34.1 [place] [address] [address] 04 Feb, 2016 Depression F32.9 and Stomach pain R10.9 [place] [address] [address] Jan, Hyperlipidemia 272.4 [place] [address] [address] 17 Dec, [address] [address] Dec, Major depressive disorder, recurrent epi sode, unspecified 296.30 ; Anxiety F41.9 ; Grief F43.20 and Dysthymia F34.1 [place] [address] [address] Dec, Anxiety F41.9 and Grief F43.[address] [address] Oct, Insomnia, unspecified G47.00 and Anxiety F41.[address] [address] Oct, Dysthymia F34.1 ; Right shoulder pain M2 5.511 ; Sciatica, right M54.31 and Iron deficiency anemia, unspecified iron deficiency anemia type D50.9 [place] [address] [address] Sep, [address] [address] Sep, Grief F43.20 [place] [address] [address] Sep, [address] [address] Sep, [facility] [address] [address] Sep, Hyperlipidemia E78.5 ; CAD (coronary art yina disease) I25.10 and HTN (hypertension) I10 [place] [address] [address] Aug, Allergic rhinitis, unspecified allergic rhinitis type J30.9 [place] [address] [address] Aug, Left-sided low back pain with right-side d sciatica M54.41 and Hyperlipidemia, unspecified hyperlipidemia E78.5 [place] [address] [address] Aug, Neck pain M54.2 and Low back pain M54.5 [place] [address] [address] Jun, [place] [address] [address] Jun, [place] [address] [address] Jun, CAD (coronary artery disease) 414.00 ; H yperlipidemia 272.4 and Anemia 285.9 [place] [address] [address] Feb, [place] [address] [address] Feb, [place] [address] [address] Jan, [place] [address] [address] Jan, [facility] [address] [address] Jan, [place] [address] [address] Jan, [facility] [address] [id number] [place] [address] Dec, [facility] [address] [id number] [place] [address] Dec, [facility] [address] [id number] [place] [address] Dec, [facility] [address] [id number] [place] [address] Dec, [facility] [address] [id number] [place] [address] Dec, [facility] [address] [id number] [place] [address] Dec, [facility] [address] [id number] [place] [address] Dec, [facility] [address] [id number] [place] [address] Dec, 2014 [facility] [address] [id number] [place] [address] Dec, [facility] [address] [id number] [place] [address] Dec, [facility] [address] [id number] [place] [address] Dec, [facility] [address] [id number] [place] [address] Dec, [facility] [address] [id number] [place] [address] Nov, [facility] [address] [id number] [place] [address] Nov, [facility] [address] [id number] [place] [address] Nov, [facility] [address] [id number] [place] [address] Nov, [facility] [address] [id number] [place] [address] Oct, [facility] [address] [id number] [place] [address] Oct, [facility] [address] [id number] [place] [address] Sep, [facility] [address] [id number] [place] [address] Sep, [facility] [address] [id number] [place] [address] Aug, [facility] [address] [id number] [place] [address] Aug, [facility] [address] [id number] [place] [address] 30 Jul, 2014 [facility] [address] [id number] [place] [address] 30 Jul, 2014 [facility] [address] [id number] [place] [address] 16 Jul, 2013 [facility] [address] [id number] [place] [address] 16 Jul, 2014 [facility] [address] [id number] [place] [address] 15 Jul, 2014 [facility] [address] [id number] [place] [address] 12 Jul, 2014 [facility] [address] [id number] [place] [address] 12 Jul, 2013 [facility] [address] [id number] [place] [address] 11 Jul, 2013 [facility] [address] [id number] [place] [address] 11 Jul, 2013 [facility] [address] [id number] [place] [address] 10 Jul, 2013 [facility] [address] [id number] [place] [address] Jul, [facility] [address] [id number] [place] [address] Jul, [facility] [address] [facility] [id number] [place] [address] Jul, [facility] [address] [facility] [id number] [place] [address] Jun, [facility] [address] [facility] [id number] [place] [address] Jun, [facility] [address] [facility] [id number] [place] [address] Jun, [facility] [address] [id number] [place] [address] Jun, [facility] [address] [id number] [place] [address] Jun, [facility] [address] [id number] [place] [address] Jun, [facility] [address] [facility] [id number] [place] [address] Jun, [facility] [address] [id number] [place] [address] Jun, [facility] [address] [id number] [place] [address] May, [facility] [address] [id number] [place] [address] May, [facility] [address] [facility] [id number] [place] [address] Apr, [facility] [address] [id number] [place] [address] Apr, [facility] [address] [facility] [id number] [place] [address] Apr, [facility] [address] [id number] [place] [address] Apr, [facility] [address] [facility] [id number] [place] [address] March, [facility] [address] [facility] [id number] [place] [address] March, [facility] [address] [facility] [id number] [place] [address] March, [facility] [address] [id number] [place] [address] March, [facility] [address] [id number] [place] [address] March, [facility] [address] [facility] [id number] [place] [address] March, [facility] [address] [id number] [place] [address] March, [facility] [address] [id number] [place] [address] March, [facility] [address] [id number] [place] [address] March, [facility] [address] [id number] [place] [address] March, [facility] [address] [id number] [place] [address] March, [facility] [address] [id number] [place] [address] Nov, [facility] [address] [id number] [place] [address] Nov, [facility] [address] [facility] [id number] [place] [address] Nov, [facility] [address] [id number] [place] [address] Oct, [facility] [address] [id number] [place] [address] Oct, [facility] [address] [id number] [place] [address] Aug, [facility] [address] [place] [id number] [place] [address] Aug, [facility] [address] [facility] [id number] Jun, [facility] [address] [facility] [id number] Apr, [facility] [address] [place] [id number] [place] [address] Apr, [facility] [address] [place] [id number] [place] [address] Apr, [facility] [address] [facility] [id number] March, [facility] [address] [place] [id number] [id number] Feb, [facility] [address] [facility] [id number] Jan, [facility] [address] [place] [id number] [place] [address] Jan, [facility] [address] [place] [id number] [place] [address] Jan, [facility] [address] [place] [id number] [place] [address] Jan, [facility] [address] [facility] [id number] Dec, [facility] [address] [facility] [id number] Dec, [facility] [address] [place] [id number] [place] [address] Dec, [facility] [address] [place] [id number] [place] [address] Dec, [facility] [address] [place] [id number] [place] [address] Dec, [facility] [address] [place] [id number] [place] [address] Nov, [facility] [address] [place] [id number] [place] [address] Nov, [facility] [address] [place] [id number] [address] Nov, [facility] [address] [place] [id number] [place] [address] Nov, [facility] [address] [place] [id number] [id number] Nov, [facility] [address] [place] [id number] [id number] Nov, [facility] [address] [place] [id number] [id number] Oct, [facility] [address] [place] [id number] [place] [address], [place] [id number] Oct, [facility] [address] [place] [id number] [place] [address] Oct, [facility] [address] [place] [id number] [place] [address] Oct, [facility] [address] [place] [id number] [place] [address] Oct, [facility] [address] [place] [id number] [place] [address] Sep, [facility] [address] [place] [id number] [place] [address] Sep, [facility] [address] [place] [id number] [id number] Sep, [facility] [place] [address] [place] [id number] [id number] Sep, [facility] [address] [id number] [id number] Sep, [facility] [address] [place] [id number] [place] [address] Sep, [facility] [address] [place] [id number] [place] [address] Aug, [facility] [address] [place] [id number] [id number] Aug, [facility] [address] [place] [id number] [place] [address] Aug, [facility] [address] [id number] [place] [id number] Jul, [facility] [address] [id number] [place] [id number] Jul, [facility] [address] [id number] [place] [id number] Jun, [facility] [address] [id number] [id number] May, [facility] [address] [id number] [id number] Feb, [facility] [address] [id number] [id number] Feb, [facility] [address] [id number] [place] [id number] Feb, [facility] [address] [facility] [id number] Dec, [facility] [address] [facility] [id number] Dec, [facility] [address] [place] [id number] [place] [address] Oct, [facility] [address] [place] [id number] [place] [address] Sep, [facility] [address] [place] [id number] [place] [address] Sep, [facility] [address] [address] Sep, [facility] [address] [place] [id number] [place] [address] Sep, [facility] [address] [address] March, [facility] [address] [place] [id number] [place] [address] Sep, [facility] [address] [id number] [place] [address] Jul, [facility] [address] [place] [id number] [place] [address] May, [facility] [address] [id number] [place] [address] Jan, [facility] [address] [id number] [place] [address] Sep, [facility] [address] [id number] [place] [address] Aug, IMMUNIZATIONS No Known Immunizations SOCIAL HISTORY Never Assessed REASON FOR VISIT PLAN OF CARE VITAL SIGNS MEDICATIONS No Known Medications RESULTS No Results PROCEDURES No Known [...]
--- OUTSIDE RECORDS SUMMARY | 2020-05-31 11:41 | XMS REPORT ---
Author Author Jeane Camacho Doctor Organization [facility] Address Unknown Phone Unavailable Care Team Providers Care Material Analyst Name Role Phone Migration, Doctor Unavailable Unavailable PROBLEMS Type Condition ICD9-CM Code IVT21-YQ Code Onset Dates Condition S tatus SNOMED Code Problem Depression F32.9 Active 17463947 Problem Anxiety F41.9 Active 98431050 Problem Environmental allergies Z91.09 Active 291534395 Problem Atherosclerotic heart diseas e of [place] coronary 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 Active 026250784 Problem Lumbago with sciatica, unspecified side M54.40 Active 911531036 Problem Chronic pain syndrome G89.4 Active 815966620 Problem Hypercholesterolemia with hypertriglyceridemia E78 .2 Active 646766779 Problem Major depressive disorder, recurrent sev ere without psychotic features F33.2 Active 88717157 Problem Dysthymia (or depressive neurosis) F34.1 Active 32162819 Problem Cigarette nicotine dependence without complication F17.210 Active 23762853 Problem Alcohol use disorder, moderate, in sustained remission F10.21 Active 32969273 Problem Cannabis use disorder, mild, abuse F12.10 Active 11426854 Problem Elevated blood pressure I10 Active 47732086 ALLERGIES No Information ENCOUNTERS Encounter Location Date Diagnosis [facility] [address] [facility] [id number] [address] [place] [address] Dec, [facility] [address] [place] [id number] [address] [place] [address] Dec, Major depressive disorder, r ecurrent severe without psychotic features F33.2 ; Chronic pain syndrome G89.4 and Encounter for immunization Z23 [facility] [address] [id number] [place] [id number] Aug, Elevated blood pressure I10 [facility] [address] [facility] [id number] [address] [place] [address] May, Hypercholesterolemia with hy pertriglyceridemia E78.2 and Atherosclerotic heart disease of [place] coronary 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 [place] [address] [facility] [id number] [address] [place] [address] 11 Mar, 2018 Lumbago with sciatica, unspe cified side M54.40 ; Environmental allergies Z91.09 ; Hypercholesterolemia with hypertriglyceridemia E78.2 and Atherosclerotic heart disease of [place] coronary 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 [place] [address] [place] [id number] [address] [place] [id number] 14 Dec, 2017 Severe episode of recurrent major depressive disorder, without psychotic features F33.2 ; Alcohol use disorder, moderate, in sustained remission F10.21 and Cannabis use disorder, mild, abuse F12.10 [place] [address] [place] [id number] [address] [place] [address] 12 Dec, 2017 Severe episode of recurrent major depressive disorder, without psychotic features F33.2 [place] [address] [place] [id number] [address] [place] [id number] 18 Nov, 2017 [place] [address] [facility] [id number] [address] [place] [address] 08 Nov, 2017 Atherosclerotic heart diseas e of [place] coronary 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 ; Hypercholesterolemia with hypertriglyceridemia E78.2 ; Depression F32.9 and Cigarette nicotine dependence without complication F17.210 [place] [address] [place] [id number] [address] [place] [address] Oct, [place] [address] [facility] [id number] [address] [place] [address] Jul, [place] [address] [facility] [id number] [address] [place] [address] Jun, [place] [address] [place] [id number] [address] [place] [address] Apr, Pain in thoracic spine M54.6 and Lumbago with sciatica, unspecified side M54.40 [place] [address] [facility] [id number] [address] [place] [address] March, [place] [address] [place] [id number] [address] [place] [address] March, Depression F32.[address] [address] March, Anxiety F41.9 ; Depression F 32.9 ; Atherosclerotic heart disease of [place] coronary 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 ; Hypercholesterolemia with hypertriglyceridemia E78.2 ; Right wrist tendonitis M77.8 and Environmental allergies Z91.09 [facility] [address] [facility] [id number] [place] [id number] Dec, [place] [address] [address] Nov, Iron deficiency anemia, unsp ecified iron deficiency anemia type D50.9 ; Anxiety F41.9 ; Dysthymia (or depressive neurosis) F34.1 and Hypercholesterolemia with hypertriglyceridemia E78.[address] [address] Oct, [address] [address] Oct, [address] [address] Oct, Dysthymia (or depressive sherice rosis) F34.1 ; Atherosclerotic heart disease of [place] coronary 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 ; Coronary atherosclerosis due to lipid rich plaque I25.83 ; Hypercholesterolemia with hypertriglyceridemia E78.2 ; Iron deficiency anemia, unspecified iron deficiency anemia type D50.9 ; Hospital discharge follow-up Z09 ; History of PID Z87.42 ; Environmental allergies Z91.09 and Dysuria R30.[address] [address] Sep, [address] [address] Sep, [address] [place] [address] 10 Aug, 2016 Dysthymia F34.1 and Anxiety F41.9 [place] [address] [place] [id number] 05 Mar, 2016 Coronary artery disease invo lving [place] coronary artery, angina presence unspecified, unspecified whether [place] or transplanted heart I25.10 ; Bipolar 1 disorder, depressed F31.9 ; Anxiety F41.9 and Dysthymia F34.1 [place] [address] [address] 04 Feb, 2016 Depression F32.9 and Stomach pain R10.9 [place] [address] [address] Jan, Hyperlipidemia 272.4 [place] [address] [address] 17 Dec, 2015 [place] [address] [address] 11 Dec, 2015 Major depressive disorder, r ecurrent episode, unspecified 296.30 ; Anxiety F41.9 ; Grief F43.20 and Dysthymia F34.1 [place] [address] [address] 11 Dec, 2015 Anxiety F41.9 and Grief F43. 20 [place] [address] [address] Oct, Insomnia, unspecified G47.00 and Anxiety F41.9 [place] [address] [address] Oct, Dysthymia F34.1 ; Right shou lder pain M25.511 ; Sciatica, right M54.31 and Iron deficiency anemia, unspecified iron deficiency anemia type D50.9 [place] [address] [address] Sep, [place] [address] [address] Sep, Grief F43.20 [facility] [address] [address] Sep, [facility] [address] [address] Sep, [facility] [address] [address] Sep, Hyperlipidemia E78.5 ; CAD ( coronary artery disease) I25.10 and HTN (hypertension) I10 [place] [address] [address] Aug, Allergic rhinitis, unspecifi ed allergic rhinitis type J30.9 [place] [address] [address] Aug, Left-sided low back pain wit h right-sided sciatica M54.41 and Hyperlipidemia, unspecified hyperlipidemia E78.5 [place] [address] [address] Aug, Neck pain M54.2 and Low back pain M54.5 [facility] [address] [address] Jun, [facility] [address] [address] Jun, [facility] [address] [address] Jun, CAD (coronary artery disease ) 414.00 ; Hyperlipidemia 272.4 and Anemia 285.9 [facility] [address] [address] Feb, [facility] [address] [address] Feb, [facility] [address] [address] Jan, [facility] [address] [id number] [address] [place] [address], [place] [address] Jan, [facility] [address] [id number] [address] [place] [address], [place] [address] Jan, [facility] [address] [id number] [address] [place] [address], [place] [address] Jan, [facility] [address] [id number] [address] [place] [address], [place] [address] Dec, 2014 [facility] [address] [id number] [address] [place] [address], [place] [address] Dec, 2014 [facility] [address] [id number] [address] [place] [address], [place] [address] Dec, 2014 [facility] [address] [id number] [address] [place] [address], [place] [address] Dec, 2014 [facility] [address] [id number] [address] [place] [address], [place] [address] Dec, 2014 [facility] [address] [id number] [address] [place] [address], [place] [address] Dec, 2014 [facility] [address] [id number] [address] [place] [address], [place] [address] Dec, 2014 [facility] [address] [id number] [address] [place] [address], [place] [address] Dec, 2014 [facility] [address] [id number] [address] [place] [address] 12 Dec, 2014 [facility] [address] [id number] [address] [place] [address], [place] [address] Dec, 2014 [facility] [address] [id number] [address] [place] [id number] 05 Dec, 2014 [facility] [address] [id number] [address] [place] [address] Dec, [facility] [address] [id number] [address] [place] [address], [place] [address] Nov, [facility] [address] [id number] [address] [place] [address], [place] [address] Nov, [facility] [address] [id number] [address] [place] [address], [place] [address] Nov, [facility] [address] [id number] [address] [place] [address], [place] [address] Nov, [facility] [address] [id number] [address] [place] [address], [place] [address] Oct, [facility] [address] [id number] [address] [place] [address], [place] [address] Oct, [facility] [address] [id number] [address] [place] [address], [place] [address] Sep, [facility] [address] [id number] [address] [place] [address], [place] [address] Sep, [facility] [address] [id number] [address] [place] [address], [place] [address] Aug, [facility] [address] [id number] [address] [place] [address], [place] [address] Aug, [facility] [address] [id number] [address] [place] [address], [place] [address] 30 Jul, 2014 [facility] [address] [id number] [address] [place] [address] 30 Jul, 2013 [facility] [address] [id number] [address] [place] [address], [place] [address] 16 Jul, 2014 [facility] [address] [id number] [address] [place] [address], [place] [address] 16 Jul, 2014 [facility] [address] [id number] [address] [place] [address], [place] [address] 15 Jul, 2014 [facility] [address] [id number] [address] [place] [address] 12 Jul, 2014 [facility] [address] [id number] [facility] [place] [place] [address] 12 Jul, 2014 [facility] [address] [id number] [address] [place] [address], [place] [address] Jul, [facility] [address] [id number] [address] [place] [address], [place] [address] Jul, [facility] [address] [id number] [address] [place] [address], [place] [address] Jul, [facility] [address] [id number] [address] [place] [address], [place] [address] Jul, [facility] [address] [id number] [address] [place] [address], [place] [address] Jul, [facility] [address] [id number] [address] [place] [address], [place] [address] Jul, [facility] [address] [id number] [address] [place] [address], [place] [address] Jun, [facility] [address] [id number] [address] [place] [address], [place] [address] Jun, [facility] [address] [id number] [address] [place] [address], [place] [address] Jun, [facility] [address] [id number] [address] [place] [address], [place] [address] Jun, [facility] [address] [id number] [address] [place] [address], [place] [address] Jun, [facility] [address] [id number] [address] [place] [address], [place] [address] Jun, [facility] [address] [id number] [address] [place] [address], [place] [address] Jun, [facility] [address] [id number] [address] [place] [address], [place] [address] Jun, [facility] [address] [id number] [facility] [place] [place] [address] May, [facility] [address] [id number] [facility] [place] [place] [address] May, [facility] [address] [id number] [facility] [place] [place] [address] Apr, [facility] [address] [id number] [address] [place] [address], [place] [address] Apr, [facility] [address] [id number] [facility] [place] [place] [address] Apr, [facility] [address] [id number] [address] [place] [address], [place] [address] Apr, [facility] [address] [id number] [address] [place] [address], [place] [address] March, [facility] [address] [id number] [address] [place] [address], [place] [address] March, [facility] [address] [id number] [address] [place] [address], [place] [address] March, [facility] [address] [id number] [address] [place] [address], [place] [address] March, [facility] [address] [id number] [address] [place] [address], [place] [address] March, [facility] [address] [id number] [address] [place] [address], [place] [address] March, [facility] [address] [id number] [address] [place] [address], [place] [address] March, [facility] [address] [id number] [address] [place] [address], [place] [address] March, [facility] [address] [id number] [address] [place] [address], [place] [address] March, [facility] [address] [id number] [address] [place] [address], [place] [address] March, [facility] [address] [id number] [address] [place] [address], [place] [address] March, [facility] [address] [id number] [address] [place] [address], [place] [address] Nov, [facility] [address] [id number] [address] [place] [address], [place] [address] Nov, [facility] [address] [id number] [address] [place] [address], [place] [address] Nov, [facility] [address] [id number] [address] [place] [address], [place] [address] Oct, [facility] [address] [id number] [address] [place] [address], [place] [address] Oct, [facility] [address] [id number] [address] [place] [address], [place] [address] Aug, [facility] [address] [id number] [address] [place] [address], [place] [address] Aug, [facility] [address] [id number] [place] [id number] Jun, [facility] [address] [id number] [place] [id number] Apr, [facility] [address] [id number] [address] [place] [address], [place] [address] Apr, [facility] [address] [id number] [address] [place] [address], [place] [address] Apr, [facility] [address] [id number] [place] [id number] March, [facility] [place] [address] [id number] [place] [id number] Feb, [facility] [place] [address] [id number] [place] [id number] Jan, [facility] [address] [id number] [address] [place] [address], [place] [address] Jan, [facility] [address] [id number] [facility] [place] [place] [address] Jan, [facility] [address] [id number] [address] [place] [address], [place] [address] Jan, [facility] [place] [address] [id number] [place] [id number] Dec, [facility] [place] [address] [id number] [place] [id number] Dec, [facility] [address] [id number] [address] [place] [address], [place] [address] Dec, [facility] [address] [id number] [address] [place] [address], [place] [address] Dec, [facility] [address] [facility] [id number] [address] [place] [address], [place] [address] Dec, [facility] [address] [facility] [id number] [address] [place] [address], [place] [address] Nov, [facility] [address] [id number] [address] [place] [address], [place] [address] Nov, [facility] [address] [id number] [place] [id number] Nov, [facility] [address] [id number] [address] [place] [address], [place] [address] Nov, [facility] [place] [address] [id number] [place] [id number] Nov, [facility] [address] [id number] [place] [id number] Nov, [facility] [address] [id number] [place] [id number] Oct, [facility] [address] [id number] [place] [id number] Oct, [facility] [address] [id number] [address] [place] [address], [place] [address] Oct, [facility] [address] [id number] [address] [place] [address] Oct, [facility] [address] [facility] [id number] [address] [place] [address] Oct, [facility] [address] [facility] [id number] [address] [place] [address] Sep, [facility] [address] [facility] [id number] [address] [place] [address] Sep, [facility] [address] [id number] [place] [id number] Sep, [facility] [address] [id number] [place] [id number] Sep, [facility] [address] [id number] [place] [id number] Sep, [facility] [address] [facility] [id number] [address] [place] [address] Sep, [facility] [address] [facility] [id number] [address] [place] [address] Aug, [facility] [address] [id number] [place] [id number] Aug, [facility] [address] [facility] [id number] [address] [place] [address] Aug, [facility] [address] [id number] [place] [id number] Jul, [facility] [place] [address] [id number] [place] [id number] Jul, [facility] [address] [id number] [place] [id number] Jun, [facility] [place] [address] [id number] [place] [id number] May, [facility] [place] [address] [id number] [place] [id number] Feb, [facility] [address] [id number] [place] [id number] Feb, [facility] [address] [id number] [place] [id number] Feb, [facility] [address] [id number] [place] [id number] Dec, [facility] [address] [id number] [place] [id number] Dec, [facility] [address] [facility] [id number] [address] [place] [address] Oct, [facility] [address] [id number] [address] [place] [address] Sep, [facility] [address] [id number] [address] [place] [address] Sep, [facility] [address] [facility] [id number] [address] [place] [address] Sep, [facility] [address] [facility] [id number] [address] [place] [address] Sep, [facility] [address] [facility] [id number] [address] [place] [address] March, [facility] [address] [facility] [id number] [address] [place] [address] Sep, [facility] [address] [facility] [id number] [address] [place] [address] Jul, [facility] [address] [facility] [id number] [address] [place] [address] May, [facility] [address] [facility] [id number] [address] [place] [id number] Jan, [facility] [address] [facility] [id number] [address] [place] [id number] Sep, [facility] [address] [facility] [id number] [address] [place] [phone] Aug, IMMUNIZATIONS No Known Immunizations SOCIAL HISTORY [...]
--- OUTSIDE RECORDS SUMMARY | 2020-05-31 11:42 | XMS REPORT ---
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 Active 329871598 Problem Environmental allergies Z91.09 Active 557371255 Problem Lumbago with sciatica, unspecified side M54.40 Active 417888708 Problem Major depressive disorder, recurrent sev ere without psychotic features F33.2 Active 42434540 Problem Hypercholesterolemia with hypertriglyceridemia E78 .2 Active 044794207 Problem Chronic pain syndrome G89.4 Active 324494396 Problem Dysthymia (or depressive neurosis) F34.1 Active 95632344 Problem Cigarette nicotine dependence without complication F17.210 Active 38732292 Problem Alcohol use disorder, moderate, in sustained remission F10.21 Active 96744956 Problem Cannabis use disorder, mild, abuse F12.10 Active 04297309 Problem Elevated blood pressure I10 Active 40752228 ALLERGIES No Information ENCOUNTERS Encounter Location Date Diagnosis [facility] [place] [address] [id number] [place] [address] Dec, Major depressive disorder, recurrent sev ere without psychotic features F33.2 ; Chronic pain syndrome G89.4 and Encounter for immunization Z23 [facility] [address] [facility] [place] [id number] Aug, Elevated blood pressure I10 [facility] [place] [address] [id number] [place] [address] May, Hypercholesterolemia with hypertriglycer idemia E78.2 and Atherosclerotic heart disease of nikolai coronary 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 [place] [address] [address] 11 Mar, 2018 Lumbago with sciatica, unspecified side M54.40 ; Environmental allergies Z91.09 ; Hypercholesterolemia with hypertriglyceridemia E78.2 and Atherosclerotic heart disease of nikolai coronary 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 [place] [address] [address] 14 Dec, 2017 Severe episode of recurrent major depres sive disorder, without psychotic features F33.2 ; Alcohol use disorder, moderate, in sustained remission F10.21 and Cannabis use disorder, mild, abuse F12.10 [place] [address] [address] 12 Dec, 2017 Severe episode of recurrent major depres sive disorder, without psychotic features F33.2 [place] [address] [address] Nov, [place] [address] [address] 08 Nov, 2017 Atherosclerotic heart disease of nikolai coronary 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 ; Hypercholesterolemia with hypertriglyceridemia E78.2 ; Depression F32.9 and Cigarette nicotine dependence without complication F17.210 [place] [address] [address] Oct, [place] [address] [address] Jul, [place] [address] [address] Jun, [place] [address] [address] Apr, Pain in thoracic spine M54.6 and Lumbago with sciatica, unspecified side M54.40 [place] [address] [address] March, [place] [address] [address] March, Depression F32.9 [place] [address] [address] March, Anxiety F41.9 ; Depression F32.9 ; Ather osclerotic heart disease of nikolai coronary 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 ; Hypercholesterolemia with hypertriglyceridemia E78.2 ; Right wrist tendonitis M77.8 and Environmental allergies Z91.09 [facility] [address] [facility] [place] [id number] Dec, [place] [address] [address] Nov, Iron deficiency anemia, unspecified iron deficiency anemia type D50.9 ; Anxiety F41.9 ; Dysthymia (or depressive neurosis) F34.1 and Hypercholesterolemia with hypertriglyceridemia E78.[address] [address] Oct, [address] [address] Oct, [address] [address] Oct, Dysthymia (or depressive neurosis) F34.1 ; Atherosclerotic heart disease of nikolai coronary 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 ; Coronary atherosclerosis due to lipid rich plaque I25.83 ; Hypercholesterolemia with hypertriglyceridemia E78.2 ; Iron deficiency anemia, unspecified iron deficiency anemia type D50.9 ; Hospital discharge follow-up Z09 ; History of PID Z87.42 ; Environmental allergies Z91.09 and Dysuria R30.[address] [address] Sep, [address] [address] Sep, [address] [address] Aug, Dysthymia F34.1 and Anxiety F41.[address] [address] March, Coronary artery disease involving nikolai coronary artery, angina presence unspecified, unspecified whether nikolai or transplanted heart I25.10 ; Bipolar 1 disorder, depressed F31.9 ; Anxiety F41.9 and Dysthymia F34.1 [place] [address] [address] 04 Feb, 2016 Depression F32.9 and Stomach pain R10.9 [place] [address] [address] Jan, Hyperlipidemia 272.4 [place] [address] [address] 17 Dec, [address] [address] Dec, Major depressive disorder, recurrent epi sode, unspecified 296.30 ; Anxiety F41.9 ; Grief F43.20 and Dysthymia F34.1 [place] [address] [address] Dec, Anxiety F41.9 and Grief F43.[address] [address] Oct, Insomnia, unspecified G47.00 and Anxiety F41.[address] [address] Oct, Dysthymia F34.1 ; Right shoulder pain M2 5.511 ; Sciatica, right M54.31 and Iron deficiency anemia, unspecified iron deficiency anemia type D50.9 [place] [address] [address] Sep, [address] [address] Sep, Grief F43.20 [place] [address] [address] Sep, [address] [address] Sep, [facility] [place] [address] [address] Sep, Hyperlipidemia E78.5 ; CAD (coronary art yina disease) I25.10 and HTN (hypertension) I10 [place] [address] [address] Aug, Allergic rhinitis, unspecified allergic rhinitis type J30.9 [place] [address] [address] Aug, Left-sided low back pain with right-side d sciatica M54.41 and Hyperlipidemia, unspecified hyperlipidemia E78.5 [place] [address] [address] Aug, Neck pain M54.2 and Low back pain M54.5 [place] [address] [address] Jun, [place] [address] [address] Jun, [place] [address] [address] Jun, CAD (coronary artery disease) 414.00 ; H yperlipidemia 272.4 and Anemia 285.9 [place] [address] [address] Feb, [place] [address] [address] Feb, [place] [address] [address] Jan, [place] [address] [address] Jan, [facility] [place] [address] [address] Jan, [place] [address] [address] Jan, [facility] [address] [id number] [place] [address] Dec, [facility] [address] [id number] [place] [address] Dec, [facility] [address] [id number] [place] [address] Dec, [facility] [address] [id number] [place] [address] Dec, [facility] [address] [id number] [place] [address] Dec, [facility] [address] [id number] [place] [address] Dec, [facility] [address] [id number] [place] [address] Dec, [facility] [address] [id number] [place] [address] Dec, 2014 [facility] [address] [id number] [place] [address] Dec, [facility] [address] [id number] [place] [address] Dec, [facility] [address] [id number] [place] [address] Dec, [facility] [address] [id number] [place] [address] Dec, [facility] [address] [id number] [place] [address] Nov, [facility] [address] [id number] [place] [address] Nov, [facility] [address] [id number] [place] [address] Nov, [facility] [address] [id number] [place] [address] Nov, [facility] [address] [id number] [place] [address] Oct, [facility] [address] [id number] [place] [address] Oct, [facility] [address] [id number] [place] [address] Sep, [facility] [address] [id number] [place] [address] Sep, [facility] [address] [id number] [place] [address] Aug, [facility] [address] [id number] [place] [address] Aug, [facility] [address] [id number] [place] [address] 30 Jul, 2014 [facility] [address] [id number] [place] [address] 30 Jul, 2014 [facility] [address] [id number] [place] [address] 16 Jul, 2013 [facility] [address] [id number] [place] [address] 16 Jul, 2014 [facility] [address] [id number] [place] [address] 15 Jul, 2014 [facility] [address] [id number] [place] [address] 12 Jul, 2014 [facility] [address] [id number] [place] [address] 12 Jul, 2013 [facility] [address] [id number] [place] [address] 11 Jul, 2013 [facility] [address] [id number] [place] [address] 11 Jul, 2013 [facility] [address] [id number] [place] [address] 10 Jul, 2013 [facility] [address] [id number] [place] [address] Jul, [facility] [address] [id number] [place] [address] Jul, [facility] [address] [facility] [id number] [facility] [address] Jul, [facility] [address] [facility] [id number] [place] [address] Jun, [facility] [address] [facility] [id number] [facility] [address] Jun, [facility] [address] [facility] [id number] [facility] [address] Jun, [facility] [address] [id number] [place] [address] Jun, [facility] [address] [id number] [place] [address] Jun, [facility] [address] [id number] [place] [address] Jun, [facility] [address] [facility] [id number] [place] [address] Jun, [facility] [address] [id number] [place] [address] Jun, [facility] [address] [id number] [place] [address] May, [facility] [address] [id number] [place] [address] May, [facility] [address] [facility] [id number] [place] [address] Apr, [facility] [address] [id number] [place] [address] Apr, [facility] [address] [facility] [id number] [place] [address] Apr, [facility] [address] [id number] [place] [address] Apr, [facility] [address] [facility] [id number] [place] [address] March, [facility] [address] [facility] [id number] [place] [address] March, [facility] [address] [facility] [id number] [place] [address] March, [facility] [address] [id number] [place] [address] March, [facility] [address] [id number] [place] [address] March, [facility] [address] [facility] [id number] [place] [address] March, [facility] [address] [id number] [place] [address] March, [facility] [address] [id number] [place] [address] March, [facility] [address] [id number] [place] [address] March, [facility] [address] [id number] [place] [address] March, [facility] [address] [id number] [place] [address] March, [facility] [address] [id number] [place] [address] Nov, [facility] [address] [id number] [place] [address] Nov, [facility] [address] [facility] [id number] [place] [address] Nov, [facility] [address] [id number] [place] [address] Oct, [facility] [address] [id number] [place] [address] Oct, [facility] [address] [id number] [place] [address] Aug, [facility] [address] [place] [id number] [place] [address] Aug, [facility] [address] [facility] [id number] Jun, [facility] [address] [facility] [id number] Apr, [facility] [address] [place] [id number] [place] [address] Apr, [facility] [address] [place] [id number] [place] [address] Apr, [facility] [address] [facility] [id number] March, [facility] [address] [place] [id number] [id number] Feb, [facility] [address] [facility] [id number] Jan, [facility] [address] [place] [id number] [place] [address] Jan, [facility] [address] [place] [id number] [place] [address] Jan, [facility] [address] [place] [id number] [place] [address] Jan, [facility] [address] [facility] [id number] Dec, [facility] [address] [facility] [id number] Dec, [facility] [address] [place] [id number] [place] [address] Dec, [facility] [address] [place] [id number] [place] [address] Dec, [facility] [address] [place] [id number] [place] [address] Dec, [facility] [address] [place] [id number] [place] [address] Nov, [facility] [address] [place] [id number] [place] [address] Nov, [facility] [address] [place] [id number] [id number] Nov, [facility] [address] [place] [id number] [place] [address] Nov, [facility] [address] [place] [id number] [id number] Nov, [facility] [address] [place] [id number] [id number] Nov, [facility] [address] [place] [id number] [id number] Oct, [facility] [address] [place] [id number] [place] [address], [place] [id number] Oct, [facility] [address] [place] [id number] [place] [address] Oct, [facility] [address] [place] [id number] [place] [address] Oct, [facility] [address] [place] [id number] [place] [address] Oct, [facility] [address] [place] [id number] [place] [address] Sep, [facility] [address] [place] [id number] [place] [address] Sep, [facility] [address] [place] [id number] [id number] Sep, [facility] [place] [address] [place] [id number] [id number] Sep, [facility] [address] [place] [id number] [id number] Sep, [facility] [address] [place] [id number] [place] [address] Sep, [facility] [address] [place] [id number] [place] [address] Aug, [facility] [address] [place] [id number] [id number] Aug, [facility] [address] [place] [id number] [place] [address] Aug, [facility] [address] [id number] [place] [id number] Jul, [facility] [address] [id number] [place] [id number] Jul, [facility] [address] [id number] [place] [id number] Jun, [facility] [address] [id number] [id number] May, [facility] [address] [id number] [id number] Feb, [facility] [address] [id number] [id number] Feb, [facility] [address] [id number] [place] [id number] Feb, [facility] [address] [facility] [id number] Dec, [facility] [address] [facility] [id number] Dec, [facility] [address] [place] [id number] [place] [address] Oct, [facility] [id number] [place] [address] Sep, [facility] [address] [place] [id number] [place] [address] Sep, [facility] [address] [address] Sep, [facility] [address] [place] [id number] [place] [address] Sep, [facility] [address] [address] March, [facility] [id number] [place] [address] Sep, [facility] [id number] [place] [address] Jul, [facility] [id number] [place] [address] May, [facility] [address] [id number] [place] [address] Jan, [facility] [address] [id number] [place] [address] Sep, [facility] [address] [id number] [place] [address] Aug, IMMUNIZATIONS No Known Immunizations SOCIAL HISTORY Never Assessed REASON FOR VISIT PLAN OF CARE VITAL SIGNS MEDICATIONS No Known Medications RESULTS No Results PROCEDURES Procedure Date Ordered Result Body Site RBC SED RATE, NONAUTOMATED May 17, 2014 COMPLETE CBC W/AUTO DIFF WBC May 17, 2014 ASSAY OF FERRITIN May 17, 2014 VENIPUNCT, ROUTINE* May 17, 2014 INSTRUCTIONS MEDICATIONS ADMINISTERED No Known Medications [...] stents in heart Hospitalization History Pelvic Inflammatory Disease-[facility] 09/22 Hospitalization History 2 inpatient psychiatric treatments, suicide attempts
--- OUTSIDE RECORDS SUMMARY | 2020-05-31 11:42 | XMS REPORT ---
Author Author Jeane WOLFF Organization [facility] Address [address] [place] [address] Care Team Providers Care Studio Technician Video Operator Name Role Phone NIKA WOLFF Unavailable PROBLEMS Type Condition ICD9-CM Code TCC87-NX Code Onset Dates Condition S tatus SNOMED Code Problem Depression F32.9 Active 54497108 Problem Anxiety F41.9 Active 03452378 Problem Environmental allergies Z91.09 Active 389866123 Problem Atherosclerotic heart diseas e of [place] coronary 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 Active 163541829 Problem Lumbago with sciatica, unspecified side M54.40 Active 024445650 Problem Chronic pain syndrome G89.4 Active 375813098 Problem Hypercholesterolemia with hypertriglyceridemia E78 .2 Active 412332771 Problem Major depressive disorder, recurrent sev ere without psychotic features F33.2 Active 37241615 Problem Dysthymia (or depressive neurosis) F34.1 Active 60421866 Problem Cigarette nicotine dependence without complication F17.210 Active 90536850 Problem Alcohol use disorder, moderate, in sustained remission F10.21 Active 53200330 Problem Cannabis use disorder, mild, abuse F12.10 Active 08160302 Problem Elevated blood pressure I10 Active 68982574 ALLERGIES No Information ENCOUNTERS Encounter Location Date Diagnosis [facility] [address] [id number] [place] [address] Dec, Major depressive disorder, recurrent sev ere without psychotic features F33.2 ; Chronic pain syndrome G89.4 and Encounter for immunization Z23 [facility] [address] [id number] [place] [id number] Aug, Elevated blood pressure I10 [facility] [id number] [place] [address] May, Hypercholesterolemia with hypertriglycer idemia E78.2 and Atherosclerotic heart disease of [place] coronary 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 [place] [address] [address] 11 Mar, 2018 Lumbago with sciatica, unspecified side M54.40 ; Environmental allergies Z91.09 ; Hypercholesterolemia with hypertriglyceridemia E78.2 and Atherosclerotic heart disease of [place] coronary 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 [place] [address] [address] 14 Dec, 2017 Severe episode of recurrent major depres sive disorder, without psychotic features F33.2 ; Alcohol use disorder, moderate, in sustained remission F10.21 and Cannabis use disorder, mild, abuse F12.10 [place] [address] [address] 12 Dec, 2017 Severe episode of recurrent major depres sive disorder, without psychotic features F33.2 [place] [address] [address] Nov, [place] [address] [address] 08 Nov, 2017 Atherosclerotic heart disease of [place] coronary 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 ; Hypercholesterolemia with hypertriglyceridemia E78.2 ; Depression F32.9 and Cigarette nicotine dependence without complication F17.210 [place] [address] [address] Oct, [place] [address] [address] Jul, [place] [address] [address] Jun, [place] [address] [address] Apr, Pain in thoracic spine M54.6 and Lumbago with sciatica, unspecified side M54.40 [place] [address] [address] March, [place] [address] [address] March, Depression F32.9 [place] [address] [address] March, Anxiety F41.9 ; Depression F32.9 ; Ather osclerotic heart disease of [place] coronary 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 ; Hypercholesterolemia with hypertriglyceridemia E78.2 ; Right wrist tendonitis M77.8 and Environmental allergies Z91.09 [facility] [address] [facility] [place] [id number] Dec, [place] [address] [address] Nov, Iron deficiency anemia, unspecified iron deficiency anemia type D50.9 ; Anxiety F41.9 ; Dysthymia (or depressive neurosis) F34.1 and Hypercholesterolemia with hypertriglyceridemia E78.[address] [address] Oct, [address] [address] Oct, [address] [address] Oct, Dysthymia (or depressive neurosis) F34.1 ; Atherosclerotic heart disease of [place] coronary 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 ; Coronary atherosclerosis due to lipid rich plaque I25.83 ; Hypercholesterolemia with hypertriglyceridemia E78.2 ; Iron deficiency anemia, unspecified iron deficiency anemia type D50.9 ; Hospital discharge follow-up Z09 ; History of PID Z87.42 ; Environmental allergies Z91.09 and Dysuria R30.[address] [address] Sep, [address] [address] Sep, [address] [address] Aug, Dysthymia F34.1 and Anxiety F41.[address] [address] March, Coronary artery disease involving [place] coronary artery, angina presence unspecified, unspecified whether [place] or transplanted heart I25.10 ; Bipolar 1 disorder, depressed F31.9 ; Anxiety F41.9 and Dysthymia F34.1 [place] [address] [address] 04 Feb, 2016 Depression F32.9 and Stomach pain R10.9 [place] [address] [address] Jan, Hyperlipidemia 272.4 [place] [address] [address] 17 Dec, [address] [address] Dec, Major depressive disorder, recurrent epi sode, unspecified 296.30 ; Anxiety F41.9 ; Grief F43.20 and Dysthymia F34.1 [place] [address] [address] Dec, Anxiety F41.9 and Grief F43.[address] [address] Oct, Insomnia, unspecified G47.00 and Anxiety F41.[address] [address] Oct, Dysthymia F34.1 ; Right shoulder pain M2 5.511 ; Sciatica, right M54.31 and Iron deficiency anemia, unspecified iron deficiency anemia type D50.9 [place] [address] [address] Sep, [address] [address] Sep, Grief F43.20 [place] [address] [address] Sep, [address] [address] Sep, [facility] [address] [address] Sep, Hyperlipidemia E78.5 ; CAD (coronary art yina disease) I25.10 and HTN (hypertension) I10 [place] [address] [address] Aug, Allergic rhinitis, unspecified allergic rhinitis type J30.9 [place] [address] [address] Aug, Left-sided low back pain with right-side d sciatica M54.41 and Hyperlipidemia, unspecified hyperlipidemia E78.5 [place] [address] [address] Aug, Neck pain M54.2 and Low back pain M54.5 [place] [address] [address] Jun, [place] [address] [address] Jun, [place] [address] [address] Jun, CAD (coronary artery disease) 414.00 ; H yperlipidemia 272.4 and Anemia 285.9 [place] [address] [address] Feb, [place] [address] [address] Feb, [place] [address] [address] Jan, [place] [address] [address] Jan, [facility] [address] [address] Jan, [place] [address] [address] Jan, [facility] [id number] [place] [address] Dec, [facility] [id number] [place] [address] Dec, [facility] [id number] [place] [address] Dec, [facility] [id number] [place] [address] Dec, [facility] [id number] [place] [address] Dec, [facility] [id number] [place] [address] Dec, [facility] [id number] [place] [address] Dec, [facility] [id number] [place] [address] Dec, 2014 [facility] [id number] [place] [address] Dec, [facility] [id number] [place] [address] Dec, [facility] [id number] [place] [address] Dec, [facility] [id number] [place] [address] Dec, [facility] [id number] [place] [address] Nov, [facility] [id number] [place] [address] Nov, [facility] [id number] [place] [address] Nov, [facility] [id number] [place] [address] Nov, [facility] [id number] [place] [address] Oct, [facility] [id number] [place] [address] Oct, [facility] [id number] [place] [address] Sep, [facility] [id number] [place] [address] Sep, [facility] [id number] [place] [address] Aug, [facility] [id number] [place] [address] Aug, [facility] [id number] [place] [address] 30 Jul, 2014 [facility] [id number] [place] [address] 30 Jul, 2014 [facility] [id number] [place] [address] 16 Jul, 2013 [facility] [id number] [place] [address] 16 Jul, 2014 [facility] [id number] [place] [address] 15 Jul, 2014 [facility] [id number] [place] [address] 12 Jul, 2014 [facility] [id number] [place] [address] 12 Jul, 2013 [facility] [id number] [place] [address] 11 Jul, 2013 [facility] [id number] [place] [address] 11 Jul, 2013 [facility] [id number] [place] [address] 10 Jul, 2013 [facility] [id number] [place] [address] Jul, [facility] [address] [id number] [place] [address] Jul, [facility] [address] [facility] [id number] [place] [address] Jul, [facility] [address] [facility] [id number] [place] [address] Jun, [facility] [address] [facility] [id number] [place] [address] Jun, [facility] [address] [facility] [id number] [place] [address] Jun, [facility] [id number] [place] [address] Jun, [facility] [id number] [place] [address] Jun, [facility] [id number] [place] [address] Jun, [facility] [address] [facility] [id number] [place] [address] Jun, [facility] [id number] [place] [address] Jun, [facility] [id number] [place] [address] May, [facility] [id number] [place] [address] May, [facility] [address] [facility] [id number] [place] [address] Apr, [facility] [address] [id number] [place] [address] Apr, [facility] [address] [facility] [id number] [place] [address] Apr, [facility] [id number] [place] [address] Apr, [facility] [address] [facility] [id number] [place] [address] March, [facility] [address] [facility] [id number] [place] [address] March, [facility] [address] [facility] [id number] [place] [address] March, [facility] [id number] [place] [address] March, [facility] [id number] [place] [address] March, [facility] [address] [facility] [id number] [place] [address] March, [facility] [id number] [place] [address] March, [facility] [id number] [place] [address] March, [facility] [id number] [place] [address] March, [facility] [id number] [place] [address] March, [facility] [id number] [place] [address] March, [facility] [id number] [place] [address] Nov, [facility] [id number] [place] [address] Nov, [facility] [address] [facility] [id number] [place] [address] Nov, [facility] [id number] [place] [address] Oct, [facility] [id number] [place] [address] Oct, [facility] [id number] [place] [address] Aug, [facility] [address] [place] [id number] [place] [address] Aug, [facility] [address] [facility] [id number] Jun, [facility] [address] [facility] [address] Apr, [facility] [address] [place] [id number] [place] [address] Apr, [facility] [address] [place] [address] [id number] [place] [address] Apr, [facility] [address] [facility] [id number] March, [facility] [address] [place] [id number] [id number] Feb, [facility] [address] [facility] [place] [id number] Jan, [facility] [address] [place] [id number] [place] [address] Jan, [facility] [address] [place] [id number] [place] [address] Jan, [facility] [address] [place] [id number] [place] [address] Jan, [facility] [address] [facility] [id number] Dec, [facility] [address] [facility] [address] Dec, [facility] [address] [place] [id number] [place] [address] Dec, [facility] [address] [id number] [place] [address] Dec, [facility] [address] [id number] [place] [address] Dec, [facility] [address] [place] [id number] [place] [address] Nov, [facility] [address] [place] [id number] [place] [address] Nov, [facility] [address] [place] [id number] [id number] Nov, [facility] [address] [place] [id number] [place] [address] Nov, [facility] [address] [place] [id number] [id number] Nov, [facility] [address] [id number] [id number] Nov, [facility] [address] [place] [id number] [id number] Oct, [facility] [address] [place] [id number] [place] [address], [place] [id number] Oct, [facility] [address] [id number] [place] [address] Oct, [facility] [id number] [place] [address] Oct, [facility] [id number] [place] [address] Oct, [facility] [id number] [place] [address] Sep, [facility] [id number] [place] [address] Sep, [facility] [address] [place] [id number] [id number] Sep, [facility] [place] [address] [id number] [id number] Sep, [facility] [address] [id number] [id number] Sep, [facility] [address] [id number] [place] [address] Sep, [facility] [id number] [place] [address] Aug, [facility] [address] [id number] [id number] Aug, [facility] [address] [id number] [place] [address] Aug, [facility] [address] [id number] [place] [address] Jul, [facility] [address] [id number] [place] [id number] Jul, [facility] [address] [id number] [place] [id number] Jun, [facility] [address] [id number] [id number] May, [facility] [address] [id number] [id number] Feb, [facility] [address] [id number] [id number] Feb, [facility] [address] [id number] [place] [id number] Feb, [facility] [address] [facility] [id number] Dec, [facility] [address] [facility] [id number] Dec, [facility] [id number] [place] [address] Oct, [facility] [id number] [place] [address] Sep, [facility] [id number] [place] [address] Sep, [facility] [address] [address] Sep, [facility] [id number] [place] [address] Sep, [facility] [address] [address] March, [facility] [id number] [place] [address] Sep, [facility] [id number] [place] [address] Jul, [facility] [id number] [place] [address] May, [facility] [address] [facility] [id number] [place] [address] Jan, [facility] [address] [id number] [place] [address] Sep, [facility] [address] [id number] [place] [address] Aug, IMMUNIZATIONS No Known Immunizations SOCIAL HISTORY [...]
--- OUTSIDE RECORDS SUMMARY | 2020-05-31 11:42 | XMS REPORT ---
Author Author Jeane WOLFF Organization 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 Active 110742800 Problem Lumbago with sciatica, unspecified side M54.40 Active 362298491 Problem Chronic pain syndrome G89.4 Active 709043264 Problem Hypercholesterolemia with hypertriglyceridemia E78 .2 Active 656049083 Problem Major depressive disorder, recurrent sev ere without psychotic features F33.2 Active 41388711 Problem Dysthymia (or depressive neurosis) F34.1 Active 78893428 Problem Cigarette nicotine dependence without complication F17.210 Active 95786029 Problem Alcohol use disorder, moderate, in sustained remission F10.21 Active 37560135 Problem Cannabis use disorder, mild, abuse F12.10 Active 22712832 Problem Elevated blood pressure I10 Active 49676134 ALLERGIES No Information ENCOUNTERS Encounter Location Date Diagnosis [facility] [address] [id number] [place] [address] Dec, Major depressive disorder, recurrent sev ere without psychotic features F33.2 ; Chronic pain syndrome G89.4 and Encounter for immunization Z23 [facility] [address] [id number] [place] [id number] Aug, Elevated blood pressure I10 [facility] [address] [id number] [place] [address] May, Hypercholesterolemia with hypertriglycer idemia E78.2 and Atherosclerotic heart disease of igiugig coronary 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 [place] [address] [address] 11 Mar, 2018 Lumbago with sciatica, unspecified side M54.40 ; Environmental allergies Z91.09 ; Hypercholesterolemia with hypertriglyceridemia E78.2 and Atherosclerotic heart disease of igiug[place] coronary 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 [place] [address] [address] 14 Dec, 2017 Severe episode of recurrent major depres sive disorder, without psychotic features F33.2 ; Alcohol use disorder, moderate, in sustained remission F10.21 and Cannabis use disorder, mild, abuse F12.10 [place] [address] [address] 12 Dec, 2017 Severe episode of recurrent major depres sive disorder, without psychotic features F33.2 [place] [address] [address] Nov, [place] [address] [address] 08 Nov, 2017 Atherosclerotic heart disease of igiugig coronary 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 ; Hypercholesterolemia with hypertriglyceridemia E78.2 ; Depression F32.9 and Cigarette nicotine dependence without complication F17.210 [place] [address] [address] Oct, [place] [address] [address] Jul, [place] [address] [address] Jun, [place] [address] [address] Apr, Pain in thoracic spine M54.6 and Lumbago with sciatica, unspecified side M54.40 [place] [address] [address] March, [place] [address] [address] March, Depression F32.9 [place] [address] [address] March, Anxiety F41.9 ; Depression F32.9 ; Ather osclerotic heart disease of igiugig coronary 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 ; Hypercholesterolemia with hypertriglyceridemia E78.2 ; Right wrist tendonitis M77.8 and Environmental allergies Z91.09 [facility] [address] [facility] [place] [id number] Dec, [place] [address] [address] Nov, Iron deficiency anemia, unspecified iron deficiency anemia type D50.9 ; Anxiety F41.9 ; Dysthymia (or depressive neurosis) F34.1 and Hypercholesterolemia with hypertriglyceridemia E78.[address] [address] Oct, [address] [address] Oct, [address] [address] Oct, Dysthymia (or depressive neurosis) F34.1 ; Atherosclerotic heart disease of igiugig coronary 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 ; Coronary atherosclerosis due to lipid rich plaque I25.83 ; Hypercholesterolemia with hypertriglyceridemia E78.2 ; Iron deficiency anemia, unspecified iron deficiency anemia type D50.9 ; Hospital discharge follow-up Z09 ; History of PID Z87.42 ; Environmental allergies Z91.09 and Dysuria R30.[address] [address] Sep, [address] [address] Sep, [address] [address] Aug, Dysthymia F34.1 and Anxiety F41.[address] [address] March, Coronary artery disease involving igiugig coronary artery, angina presence unspecified, unspecified whether igiugig or transplanted heart I25.10 ; Bipolar 1 disorder, depressed F31.9 ; Anxiety F41.9 and Dysthymia F34.1 [place] [address] [address] 04 Feb, 2016 Depression F32.9 and Stomach pain R10.9 [place] [address] [address] Jan, Hyperlipidemia 272.4 [place] [address] [address] 17 Dec, [address] [address] Dec, Major depressive disorder, recurrent epi sode, unspecified 296.30 ; Anxiety F41.9 ; Grief F43.20 and Dysthymia F34.1 [place] [address] [address] Dec, Anxiety F41.9 and Grief F43.[address] [address] Oct, Insomnia, unspecified G47.00 and Anxiety F41.[address] [address] Oct, Dysthymia F34.1 ; Right shoulder pain M2 5.511 ; Sciatica, right M54.31 and Iron deficiency anemia, unspecified iron deficiency anemia type D50.9 [place] [address] [address] Sep, [address] [address] Sep, Grief F43.20 [place] [address] [address] Sep, [address] [address] Sep, [facility] [address] [address] Sep, Hyperlipidemia E78.5 ; CAD (coronary art yina disease) I25.10 and HTN (hypertension) I10 [place] [address] [address] Aug, Allergic rhinitis, unspecified allergic rhinitis type J30.9 [place] [address] [address] Aug, Left-sided low back pain with right-side d sciatica M54.41 and Hyperlipidemia, unspecified hyperlipidemia E78.5 [place] [address] [address] Aug, Neck pain M54.2 and Low back pain M54.5 [place] [address] [address] Jun, [place] [address] [address] Jun, [place] [address] [address] Jun, CAD (coronary artery disease) 414.00 ; H yperlipidemia 272.4 and Anemia 285.9 [place] [address] [address] Feb, [place] [address] [address] Feb, [place] [address] [address] Jan, [place] [address] [address] Jan, [facility] [address] [address] Jan, [place] [address] [address] Jan, [facility] [address] [id number] [place] [address] Dec, [facility] [address] [id number] [place] [address] Dec, [facility] [address] [id number] [place] [address] Dec, [facility] [address] [id number] [place] [address] Dec, [facility] [address] [id number] [place] [address] Dec, [facility] [address] [id number] [place] [address] Dec, [facility] [address] [id number] [place] [address] Dec, [facility] [address] [id number] [place] [address] Dec, 2014 [facility] [address] [id number] [place] [address] Dec, [facility] [address] [id number] [place] [address] Dec, [facility] [address] [id number] [place] [address] Dec, [facility] [address] [id number] [place] [address] Dec, [facility] [address] [id number] [place] [address] Nov, [facility] [address] [id number] [place] [address] Nov, [facility] [address] [id number] [place] [address] Nov, [facility] [address] [id number] [place] [address] Nov, [facility] [address] [id number] [place] [address] Oct, [facility] [address] [id number] [place] [address] Oct, [facility] [address] [id number] [place] [address] Sep, [facility] [address] [id number] [place] [address] Sep, [facility] [address] [id number] [place] [address] Aug, [facility] [address] [id number] [place] [address] Aug, [facility] [address] [id number] [place] [address] 30 Jul, 2014 [facility] [address] [id number] [place] [address] 30 Jul, 2014 [facility] [address] [id number] [place] [address] 16 Jul, 2013 [facility] [address] [id number] [place] [address] 16 Jul, 2014 [facility] [address] [id number] [place] [address] 15 Jul, 2014 [facility] [address] [id number] [place] [address] 12 Jul, 2014 [facility] [address] [id number] [place] [address] 12 Jul, 2013 [facility] [address] [id number] [place] [address] 11 Jul, 2013 [facility] [address] [id number] [place] [address] 11 Jul, 2013 [facility] [address] [id number] [place] [address] 10 Jul, 2013 [facility] [address] [id number] [place] [address] Jul, [facility] [address] [id number] [place] [address] Jul, [facility] [address] [facility] [id number] [facility] [address] Jul, [facility] [address] [facility] [id number] [place] [address] Jun, [facility] [address] [facility] [id number] [facility] [place] [address] Jun, [facility] [address] [facility] [id number] [facility] [place] [address] Jun, [facility] [address] [id number] [place] [address] Jun, [facility] [address] [id number] [place] [address] Jun, [facility] [address] [id number] [place] [address] Jun, [facility] [address] [facility] [id number] [place] [address] Jun, [facility] [address] [id number] [place] [address] Jun, [facility] [address] [id number] [place] [address] May, [facility] [address] [id number] [place] [address] May, [facility] [address] [facility] [id number] [place] [address] Apr, [facility] [address] [id number] [place] [address] Apr, [facility] [address] [facility] [id number] [place] [address] Apr, [facility] [address] [id number] [place] [address] Apr, [facility] [address] [facility] [id number] [place] [address] March, [facility] [address] [facility] [id number] [place] [address] March, [facility] [address] [facility] [id number] [place] [address] March, [facility] [address] [id number] [place] [address] March, [facility] [address] [id number] [place] [address] March, [facility] [address] [facility] [id number] [place] [address] March, [facility] [address] [id number] [place] [address] March, [facility] [address] [id number] [place] [address] March, [facility] [address] [id number] [place] [address] March, [facility] [address] [id number] [place] [address] March, [facility] [address] [id number] [place] [address] March, [facility] [address] [id number] [place] [address] Nov, [facility] [address] [id number] [place] [address] Nov, [facility] [address] [facility] [id number] [place] [address] Nov, [facility] [address] [id number] [place] [address] Oct, [facility] [address] [id number] [place] [address] Oct, [facility] [address] [id number] [place] [address] Aug, [facility] [address] [place] [id number] [place] [address] Aug, [facility] [address] [facility] [id number] Jun, [facility] [address] [facility] [id number] Apr, [facility] [address] [place] [id number] [place] [address] Apr, [facility] [address] [place] [id number] [place] [address] Apr, [facility] [address] [facility] [id number] March, [facility] [address] [place] [id number] [id number] Feb, [facility] [address] [facility] [id number] Jan, [facility] [address] [place] [id number] [place] [address] Jan, [facility] [address] [place] [id number] [place] [address] Jan, [facility] [address] [place] [id number] [place] [address] Jan, [facility] [address] [facility] [id number] Dec, [facility] [address] [facility] [id number] Dec, [facility] [address] [place] [id number] [place] [address] Dec, [facility] [address] [place] [id number] [place] [address] Dec, [facility] [address] [place] [id number] [place] [address] Dec, [facility] [address] [place] [id number] [place] [address] Nov, [facility] [address] [place] [id number] [place] [address] Nov, [facility] [address] [place] [id number] [id number] Nov, [facility] [address] [place] [id number] [place] [address] Nov, [facility] [address] [place] [id number] [id number] Nov, [facility] [address] [place] [id number] [id number] Nov, [facility] [address] [place] [id number] [id number] Oct, [facility] [address] [place] [id number] [place] [address], [place] [id number] Oct, [facility] [address] [place] [id number] [place] [address] Oct, [facility] [address] [place] [id number] [place] [address] Oct, [facility] [address] [place] [id number] [place] [address] Oct, [facility] [address] [place] [id number] [place] [address] Sep, [facility] [address] [place] [id number] [place] [address] Sep, [facility] [address] [id number] [id number] Sep, [facility] [place] [address] [id number] [id number] Sep, [facility] [address] [id number] [id number] Sep, [facility] [address] [place] [id number] [place] [address] Sep, [facility] [address] [place] [id number] [place] [address] Aug, [facility] [address] [id number] [id number] Aug, [facility] [address] [place] [id number] [place] [address] Aug, [facility] [address] [id number] [place] [id number] Jul, [facility] [address] [id number] [place] [id number] Jul, [facility] [address] [id number] [place] [id number] Jun, [facility] [address] [id number] [address] May, [facility] [address] GM30087[facility] [id number] Feb, [facility] [address] GE53689[facility] [id number] Feb, [facility] [address] [id number] [place] [id number] Feb, [facility] [address] [facility]757[facility] [id number] Dec, [facility] [address] [facility]757[facility] [id number] Dec, [facility] [id number] [place] [address] Oct, [facility] [id number] [place] [address] Sep, [facility] [id number] [place] [address] Sep, [facility] [address] [address] Sep, [facility] [id number] [place] [address] Sep, [facility] [address] [address] March, [facility] [id number] [place] [address] Sep, [facility] [id number] [place] [address] Jul, [facility] [id number] [place] [address] May, [facility] [address] [id number] [place] [address] Jan, [facility] [address] [id number] [place] [address] Sep, [facility] [address] [id number] [place] [address] Aug, IMMUNIZATIONS No Known Immunizations SOCIAL HISTORY [...]
--- OUTSIDE RECORDS SUMMARY | 2020-05-31 11:42 | XMS REPORT ---
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 Role Phone NIKA WOLFF Unavailable PROBLEMS Type Condition ICD9-CM Code RTX13-LV Code Onset Dates Condition S tatus SNOMED Code Problem Depression F32.9 Active 71430624 Problem Anxiety F41.9 Active 77966858 Problem Hypercholesterolemia with hypertriglyceridemia E78 .2 Active 838474945 Problem Environmental allergies Z91.09 Active 733723494 Problem Lumbago with sciatica, unspecified side M54.40 Active 477509558 Problem Chronic pain syndrome G89.4 Active 349725789 Problem Dysthymia (or depressive neurosis) F34.1 Active 10835053 Problem Major depressive disorder, recurrent sev ere without psychotic features F33.2 Active 44624730 Problem Atherosclerotic heart diseas e of [place] coronary 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 Active 960065670 Problem Cigarette nicotine dependence without complication F17.210 Active 81202430 Problem Cannabis use disorder, mild, abuse F12.10 Active 10520573 Problem Alcohol use disorder, moderate, in sustained remission F10.21 Active 04340564 Problem Elevated blood pressure I10 Active 86220570 ALLERGIES No Information ENCOUNTERS Encounter Location Date Diagnosis [facility] [place] [address] [id number] [place] [address] Dec, Major depressive disorder, recurrent sev ere without psychotic features F33.2 ; Chronic pain syndrome G89.4 and Encounter for immunization Z23 [facility] [address] [id number] [place] [id number] Aug, Elevated blood pressure I10 [facility] [place] [address] [id number] [place] [address] May, Hypercholesterolemia with hypertriglycer idemia E78.2 and Atherosclerotic heart disease of [place] coronary 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 [place] [address] [address] 11 Mar, 2018 Lumbago with sciatica, unspecified side M54.40 ; Environmental allergies Z91.09 ; Hypercholesterolemia with hypertriglyceridemia E78.2 and Atherosclerotic heart disease of [place] coronary 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 [place] [address] [address] 14 Dec, 2017 Severe episode of recurrent major depres sive disorder, without psychotic features F33.2 ; Alcohol use disorder, moderate, in sustained remission F10.21 and Cannabis use disorder, mild, abuse F12.10 [place] [address] [address] 12 Dec, 2017 Severe episode of recurrent major depres sive disorder, without psychotic features F33.2 [place] [address] [address] Nov, [place] [address] [address] 08 Nov, 2017 Atherosclerotic heart disease of [place] coronary 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 ; Hypercholesterolemia with hypertriglyceridemia E78.2 ; Depression F32.9 and Cigarette nicotine dependence without complication F17.210 [place] [address] [address] Oct, [place] [address] [address] Jul, [place] [address] [address] Jun, [place] [address] [address] Apr, Pain in thoracic spine M54.6 and Lumbago with sciatica, unspecified side M54.40 [place] [address] [address] March, [place] [address] [address] March, Depression F32.9 [place] [address] [address] March, Anxiety F41.9 ; Depression F32.9 ; Ather osclerotic heart disease of [place] coronary 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 ; Hypercholesterolemia with hypertriglyceridemia E78.2 ; Right wrist tendonitis M77.8 and Environmental allergies Z91.09 [facility] [address] [id number] [place] [id number] Dec, [place] [address] [address] Nov, Iron deficiency anemia, unspecified iron deficiency anemia type D50.9 ; Anxiety F41.9 ; Dysthymia (or depressive neurosis) F34.1 and Hypercholesterolemia with hypertriglyceridemia E78.[address] [address] Oct, [address] [address] Oct, [address] [address] Oct, Dysthymia (or depressive neurosis) F34.1 ; Atherosclerotic heart disease of [place] coronary 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 ; Coronary atherosclerosis due to lipid rich plaque I25.83 ; Hypercholesterolemia with hypertriglyceridemia E78.2 ; Iron deficiency anemia, unspecified iron deficiency anemia type D50.9 ; Hospital discharge follow-up Z09 ; History of PID Z87.42 ; Environmental allergies Z91.09 and Dysuria R30.[address] [address] Sep, [address] [address] Sep, [address] [address] Aug, Dysthymia F34.1 and Anxiety F41.[address] [address] March, Coronary artery disease involving [place] coronary artery, angina presence unspecified, unspecified whether [place] or transplanted heart I25.10 ; Bipolar 1 disorder, depressed F31.9 ; Anxiety F41.9 and Dysthymia F34.1 [place] [address] [address] 04 Feb, 2016 Depression F32.9 and Stomach pain R10.9 [place] [address] [address] Jan, Hyperlipidemia 272.4 [place] [address] [address] 17 Dec, [address] [address] Dec, Major depressive disorder, recurrent epi sode, unspecified 296.30 ; Anxiety F41.9 ; Grief F43.20 and Dysthymia F34.1 [place] [address] [address] Dec, Anxiety F41.9 and Grief F43.[address] [address] Oct, Insomnia, unspecified G47.00 and Anxiety F41.[address] [address] Oct, Dysthymia F34.1 ; Right shoulder pain M2 5.511 ; Sciatica, right M54.31 and Iron deficiency anemia, unspecified iron deficiency anemia type D50.9 [place] [address] [address] Sep, [address] [address] Sep, Grief F43.20 [place] [address] [address] Sep, [address] [address] Sep, [facility] [place] [address] [address] Sep, Hyperlipidemia E78.5 ; CAD (coronary art yina disease) I25.10 and HTN (hypertension) I10 [place] [address] [address] Aug, Allergic rhinitis, unspecified allergic rhinitis type J30.9 [place] [address] [address] Aug, Left-sided low back pain with right-side d sciatica M54.41 and Hyperlipidemia, unspecified hyperlipidemia E78.5 [place] [address] [address] Aug, Neck pain M54.2 and Low back pain M54.5 [place] [address] [address] Jun, [place] [address] [address] Jun, [place] [address] [address] Jun, CAD (coronary artery disease) 414.00 ; H yperlipidemia 272.4 and Anemia 285.9 [place] [address] [address] Feb, [place] [address] [address] Feb, [place] [address] [address] Jan, [place] [address] [address] Jan, [facility] [place] [address] [address] Jan, [place] [address] [address] Jan, [facility] [address] [id number] [place] [address] Dec, [facility] [address] [id number] [place] [address] Dec, [facility] [address] [id number] [place] [address] Dec, [facility] [address] [id number] [place] [address] Dec, [facility] [address] [id number] [place] [address] Dec, [facility] [address] [id number] [place] [address] Dec, [facility] [address] [id number] [place] [address] Dec, [facility] [address] [id number] [place] [address] Dec, 2014 [facility] [address] [id number] [place] [address] Dec, [facility] [address] [id number] [place] [address] Dec, [facility] [address] [id number] [place] [address] Dec, [facility] [address] [id number] [place] [address] Dec, [facility] [address] [id number] [place] [address] Nov, [facility] [address] [id number] [place] [address] Nov, [facility] [address] [id number] [place] [address] Nov, [facility] [address] [id number] [place] [address] Nov, [facility] [address] [id number] [place] [address] Oct, [facility] [address] [id number] [place] [address] Oct, [facility] [address] [id number] [place] [address] Sep, [facility] [address] [id number] [place] [address] Sep, [facility] [address] [id number] [place] [address] Aug, [facility] [address] [id number] [place] [address] Aug, [facility] [address] [id number] [place] [address] 30 Jul, 2014 [facility] [address] [id number] [place] [address] 30 Jul, 2014 [facility] [address] [id number] [place] [address] 16 Jul, 2013 [facility] [address] [id number] [place] [address] 16 Jul, 2014 [facility] [address] [id number] [place] [address] 15 Jul, 2014 [facility] [address] [id number] [place] [address] 12 Jul, 2014 [facility] [address] [id number] [place] [address] 12 Jul, 2013 [facility] [address] [id number] [place] [address] 11 Jul, 2013 [facility] [address] [id number] [place] [address] 11 Jul, 2013 [facility] [address] [id number] [place] [address] 10 Jul, 2013 [facility] [address] [id number] [place] [address] Jul, [facility] [address] [id number] [place] [address] Jul, [facility] [address] [facility] [id number] [facility] [address] Jul, [facility] [address] [facility] [id number] [place] [address] Jun, [facility] [address] [facility] [id number] [facility] [address] Jun, [facility] [address] [facility] [id number] [facility] [place] [address] Jun, [facility] [address] [id number] [place] [address] Jun, [facility] [address] [id number] [place] [address] Jun, [facility] [address] [id number] [place] [address] Jun, [facility] [address] [facility] [id number] [place] [address] Jun, [facility] [address] [id number] [place] [address] Jun, [facility] [address] [id number] [place] [address] May, [facility] [address] [id number] [place] [address] May, [facility] [address] [facility] [id number] [place] [address] Apr, [facility] [address] [id number] [place] [address] Apr, [facility] [address] [facility] [id number] [place] [address] Apr, [facility] [address] [id number] [place] [address] Apr, [facility] [address] [facility] [id number] [place] [address] March, [facility] [address] [facility] [id number] [place] [address] March, [facility] [address] [facility] [id number] [place] [address] March, [facility] [address] [id number] [place] [address] March, [facility] [address] [id number] [place] [address] March, [facility] [address] [facility] [id number] [place] [address] March, [facility] [address] [id number] [place] [address] March, [facility] [address] [id number] [place] [address] March, [facility] [address] [id number] [place] [address] March, [facility] [address] [id number] [place] [address] March, [facility] [address] [id number] [place] [address] March, [facility] [address] [id number] [place] [address] Nov, [facility] [address] [id number] [place] [address] Nov, [facility] [address] [facility] [id number] [place] [address] Nov, [facility] [address] [id number] [place] [address] Oct, [facility] [address] [id number] [place] [address] Oct, [facility] [address] [id number] [place] [address] Aug, [facility] [address] [place] [id number] [place] [address] Aug, [facility] [address] [facility] [id number] Jun, [facility] [address] [facility] [id number] Apr, [facility] [address] [place] [id number] [place] [address] Apr, [facility] [address] [place] [id number] [place] [address] Apr, [facility] [address] [facility] [id number] March, [facility] [address] [place] [id number] [id number] Feb, [facility] [address] [facility] [id number] Jan, [facility] [address] [place] [id number] [place] [address] Jan, [facility] [address] [place] [id number] [place] [address] Jan, [facility] [address] [place] [id number] [place] [address] Jan, [facility] [address] [facility] [address] Dec, [facility] [address] [facility] [address] Dec, [facility] [address] [place] [id number] [place] [address] Dec, [facility] [address] [place] [id number] [place] [address] Dec, [facility] [address] [place] [id number] [place] [address] Dec, [facility] [address] [place] [id number] [place] [address] Nov, [facility] [address] [place] [id number] [place] [address] Nov, [facility] [address] [place] [id number] [id number] Nov, [facility] [address] [place] [id number] [place] [address] Nov, [facility] [address] [place] [id number] [id number] Nov, [facility] [address] [place] [id number] [id number] Nov, [facility] [address] [place] [id number] [id number] Oct, [facility] [address] [place] [id number] [place] [address], [place] [id number] Oct, [facility] [address] [place] [id number] [place] [address] Oct, [facility] [address] [place] [id number] [place] [address] Oct, [facility] [address] [place] [id number] [place] [address] Oct, [facility] [address] [place] [id number] [place] [address] Sep, [facility] [address] [place] [id number] [place] [address] Sep, [facility] [address] [place] [id number] [address] Sep, [facility] [place] [address] [place] [id number] [address] Sep, [facility] [address] [place] [id number] [address] Sep, [facility] [address] [place] [id number] [place] [address] Sep, [facility] [address] [place] [id number] [place] [address] Aug, [facility] [address] [id number] [address] Aug, [facility] [address] [place] [id number] [place] [address] Aug, [facility] [address] [id number] [place] [id number] Jul, [facility] [address] [id number] [place] [id number] Jul, [facility] [address] [id number] [place] [id number] Jun, [facility] [address] [id number] [id number] May, [facility] [address] [id number] [address] Feb, [facility] [address] NI27324O[facility] [id number] Feb, [facility] [address] [id number] [place] [id number] Feb, [facility] [address] [facility] [id number] Dec, [facility] [address] [facility] [id number] Dec, [facility] [address] [id number] [place] [address] Oct, [facility] [address] [id number] [place] [address] Sep, [facility] [address] [place] [id number] [place] [address] Sep, [facility] [address] [address] Sep, [facility] [address] [place] [id number] [place] [address] Sep, [facility] [address] [address] March, [facility] [address] [id number] [place] [address] Sep, [facility] [address] [place] [id number] [place] [address] Jul, [facility] [address] [place] [id number] [place] [address] May, [facility] [place] [address] [id number] [place] [address] Jan, [facility] [place] [address] [id number] [place] [address] Sep, [facility] [place] [address] [id number] [place] [address] Aug, IMMUNIZATIONS No Known Immunizations SOCIAL HISTORY [...]
--- OUTSIDE RECORDS SUMMARY | 2020-05-31 11:42 | XMS REPORT ---
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 Active 022587001 Problem Lumbago with sciatica, unspecified side M54.40 Active 792092516 Problem Chronic pain syndrome G89.4 Active 808562590 Problem Hypercholesterolemia with hypertriglyceridemia E78 .2 Active 542230426 Problem Major depressive disorder, recurrent sev ere without psychotic features F33.2 Active 16999344 Problem Dysthymia (or depressive neurosis) F34.1 Active 88836329 Problem Cigarette nicotine dependence without complication F17.210 Active 05477418 Problem Alcohol use disorder, moderate, in sustained remission F10.21 Active 33793951 Problem Cannabis use disorder, mild, abuse F12.10 Active 48312732 Problem Elevated blood pressure I10 Active 13177437 ALLERGIES No Information ENCOUNTERS Encounter Location Date Diagnosis [facility] [address] [id number] [place] [address] Dec, Major depressive disorder, recurrent sev ere without psychotic features F33.2 ; Chronic pain syndrome G89.4 and Encounter for immunization Z23 [facility] [address] [id number] [place] [id number] Aug, Elevated blood pressure I10 [facility] [address] [id number] [place] [address] May, Hypercholesterolemia with hypertriglycer idemia E78.2 and Atherosclerotic heart disease of soboba coronary 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 [place] [address] [address] 11 Mar, 2018 Lumbago with sciatica, unspecified side M54.40 ; Environmental allergies Z91.09 ; Hypercholesterolemia with hypertriglyceridemia E78.2 and Atherosclerotic heart disease of sob[place] coronary 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 [place] [address] [address] 14 Dec, 2017 Severe episode of recurrent major depres sive disorder, without psychotic features F33.2 ; Alcohol use disorder, moderate, in sustained remission F10.21 and Cannabis use disorder, mild, abuse F12.10 [place] [address] [address] 12 Dec, 2017 Severe episode of recurrent major depres sive disorder, without psychotic features F33.2 [place] [address] [address] Nov, [place] [address] [address] 08 Nov, 2017 Atherosclerotic heart disease of soboba coronary 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 ; Hypercholesterolemia with hypertriglyceridemia E78.2 ; Depression F32.9 and Cigarette nicotine dependence without complication F17.210 [place] [address] [address] Oct, [place] [address] [address] Jul, [place] [address] [address] Jun, [place] [address] [address] Apr, Pain in thoracic spine M54.6 and Lumbago with sciatica, unspecified side M54.40 [place] [address] [address] March, [place] [address] [address] March, Depression F32.9 [place] [address] [address] March, Anxiety F41.9 ; Depression F32.9 ; Ather osclerotic heart disease of soboba coronary 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 ; Hypercholesterolemia with hypertriglyceridemia E78.2 ; Right wrist tendonitis M77.8 and Environmental allergies Z91.09 [facility] [address] [id number] [place] [id number] Dec, [place] [address] [address] Nov, Iron deficiency anemia, unspecified iron deficiency anemia type D50.9 ; Anxiety F41.9 ; Dysthymia (or depressive neurosis) F34.1 and Hypercholesterolemia with hypertriglyceridemia E78.[address] [address] Oct, [address] [address] Oct, [address] [address] Oct, Dysthymia (or depressive neurosis) F34.1 ; Atherosclerotic heart disease of soboba coronary 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 ; Coronary atherosclerosis due to lipid rich plaque I25.83 ; Hypercholesterolemia with hypertriglyceridemia E78.2 ; Iron deficiency anemia, unspecified iron deficiency anemia type D50.9 ; Hospital discharge follow-up Z09 ; History of PID Z87.42 ; Environmental allergies Z91.09 and Dysuria R30.[address] [address] Sep, [address] [address] Sep, [address] [address] Aug, Dysthymia F34.1 and Anxiety F41.[address] [address] March, Coronary artery disease involving soboba coronary artery, angina presence unspecified, unspecified whether soboba or transplanted heart I25.10 ; Bipolar 1 disorder, depressed F31.9 ; Anxiety F41.9 and Dysthymia F34.1 [place] [address] [address] 04 Feb, 2016 Depression F32.9 and Stomach pain R10.9 [place] [address] [address] Jan, Hyperlipidemia 272.4 [place] [address] [address] 17 Dec, [address] [address] Dec, Major depressive disorder, recurrent epi sode, unspecified 296.30 ; Anxiety F41.9 ; Grief F43.20 and Dysthymia F34.1 [place] [address] [address] Dec, Anxiety F41.9 and Grief F43.[address] [address] Oct, Insomnia, unspecified G47.00 and Anxiety F41.[address] [address] Oct, Dysthymia F34.1 ; Right shoulder pain M2 5.511 ; Sciatica, right M54.31 and Iron deficiency anemia, unspecified iron deficiency anemia type D50.9 [place] [address] [address] Sep, [address] [address] Sep, Grief F43.20 [place] [address] [address] Sep, [address] [address] Sep, [facility] [address] [address] Sep, Hyperlipidemia E78.5 ; CAD (coronary art yina disease) I25.10 and HTN (hypertension) I10 [place] [address] [address] Aug, Allergic rhinitis, unspecified allergic rhinitis type J30.9 [place] [address] [address] Aug, Left-sided low back pain with right-side d sciatica M54.41 and Hyperlipidemia, unspecified hyperlipidemia E78.5 [place] [address] [address] Aug, Neck pain M54.2 and Low back pain M54.5 [place] [address] [address] Jun, [place] [address] [address] Jun, [place] [address] [address] Jun, CAD (coronary artery disease) 414.00 ; H yperlipidemia 272.4 and Anemia 285.9 [place] [address] [address] Feb, [place] [address] [address] Feb, [place] [address] [address] Jan, [place] [address] [address] Jan, [facility] [address] [address] Jan, [place] [address] [address] Jan, [facility] [address] [id number] [place] [address] Dec, [facility] [address] [id number] [place] [address] Dec, [facility] [address] [id number] [place] [address] Dec, [facility] [address] [id number] [place] [address] Dec, [facility] [address] [id number] [place] [address] Dec, [facility] [address] [id number] [place] [address] Dec, [facility] [address] [id number] [place] [address] Dec, [facility] [address] [id number] [place] [address] Dec, 2014 [facility] [address] [id number] [place] [address] Dec, [facility] [address] [id number] [place] [address] Dec, [facility] [address] [id number] [place] [address] Dec, [facility] [address] [id number] [place] [address] Dec, [facility] [address] [id number] [place] [address] Nov, [facility] [address] [id number] [place] [address] Nov, [facility] [address] [id number] [place] [address] Nov, [facility] [address] [id number] [place] [address] Nov, [facility] [address] [id number] [place] [address] Oct, [facility] [address] [id number] [place] [address] Oct, [facility] [address] [id number] [place] [address] Sep, [facility] [address] [id number] [place] [address] Sep, [facility] [address] [id number] [place] [address] Aug, [facility] [address] [id number] [place] [address] Aug, [facility] [address] [id number] [place] [address] 30 Jul, 2014 [facility] [address] [id number] [place] [address] 30 Jul, 2014 [facility] [address] [id number] [place] [address] 16 Jul, 2013 [facility] [address] [id number] [place] [address] 16 Jul, 2014 [facility] [address] [id number] [place] [address] 15 Jul, 2014 [facility] [address] [id number] [place] [address] 12 Jul, 2014 [facility] [address] [id number] [place] [address] 12 Jul, 2013 [facility] [address] [id number] [place] [address] 11 Jul, 2013 [facility] [address] [id number] [place] [address] 11 Jul, 2013 [facility] [address] [id number] [place] [address] 10 Jul, 2013 [facility] [address] [id number] [place] [address] Jul, [facility] [address] [id number] [place] [address] Jul, [facility] [address] [facility] [id number] [place] [address] Jul, [facility] [address] [facility] [id number] [place] [address] Jun, [facility] [address] [facility] [id number] [place] [address] Jun, [facility] [address] [facility] [id number] [place] [address] Jun, [facility] [address] [id number] [place] [address] Jun, [facility] [address] [id number] [place] [address] Jun, [facility] [address] [id number] [place] [address] Jun, [facility] [address] [facility] [id number] [place] [address] Jun, [facility] [address] [id number] [place] [address] Jun, [facility] [address] [id number] [place] [address] May, [facility] [address] [id number] [place] [address] May, [facility] [address] [facility] [id number] [place] [address] Apr, [facility] [address] [id number] [place] [address] Apr, [facility] [address] [facility] [id number] [place] [address] Apr, [facility] [address] [id number] [place] [address] Apr, [facility] [address] [facility] [id number] [place] [address] March, [facility] [address] [facility] [id number] [place] [address] March, [facility] [address] [facility] [id number] [place] [address] March, [facility] [address] [id number] [place] [address] March, [facility] [address] [id number] [place] [address] March, [facility] [address] [facility] [id number] [place] [address] March, [facility] [address] [id number] [place] [address] March, [facility] [address] [id number] [place] [address] March, [facility] [address] [id number] [place] [address] March, [facility] [address] [id number] [place] [address] March, [facility] [address] [id number] [place] [address] March, [facility] [address] [id number] [place] [address] Nov, [facility] [address] [id number] [place] [address] Nov, [facility] [address] [facility] [id number] [place] [address] Nov, [facility] [address] [id number] [place] [address] Oct, [facility] [address] [id number] [place] [address] Oct, [facility] [address] [id number] [place] [address] Aug, [facility] [address] [place] [id number] [place] [address] Aug, [facility] [address] [facility] [id number] Jun, [facility] [address] [facility] [id number] Apr, [facility] [address] [place] [id number] [place] [address] Apr, [facility] [address] [place] [id number] [place] [address] Apr, [facility] [address] [facility] [id number] March, [facility] [address] [place] [id number] [id number] Feb, [facility] [address] [facility] [id number] Jan, [facility] [address] [place] [id number] [place] [address] Jan, [facility] [address] [place] [id number] [place] [address] Jan, [facility] [address] [place] [id number] [place] [address] Jan, [facility] [address] [facility] [id number] Dec, [facility] [address] [facility] [id number] Dec, [facility] [address] [place] [id number] [place] [address] Dec, [facility] [address] [place] [id number] [place] [address] Dec, [facility] [address] [place] [id number] [place] [address] Dec, [facility] [address] [place] [id number] [place] [address] Nov, [facility] [address] [place] [id number] [place] [address] Nov, [facility] [address] [place] [id number] [id number] Nov, [facility] [address] [place] [id number] [place] [address] Nov, [facility] [address] [place] [id number] [id number] Nov, [facility] [address] [place] [id number] [id number] Nov, [facility] [address] [place] [id number] [id number] Oct, [facility] [address] [place] [id number] [place] [address], [place] [id number] Oct, [facility] [address] [place] [id number] [place] [address] Oct, [facility] [address] [place] [id number] [place] [address] Oct, [facility] [address] [place] [id number] [place] [address] Oct, [facility] [address] [place] [id number] [place] [address] Sep, [facility] [address] [place] [id number] [place] [address] Sep, [facility] [address] [id number] [id number] Sep, [facility] [place] [address] [id number] [id number] Sep, [facility] [address] [id number] [address] Sep, [facility] [address] [place] [id number] [place] [address] Sep, [facility] [address] [place] [id number] [place] [address] Aug, [facility] [address] [id number] [id number] Aug, [facility] [address] [place] [id number] [place] [address] Aug, [facility] [address] [id number] [place] [id number] Jul, [facility] [address] [id number] [place] [id number] Jul, [facility] [address] [id number] [place] [id number] Jun, [facility] [address] [id number] [address] May, [facility] [address] [id number] [address] Feb, [facility] [address] [id number] [id number] Feb, [facility] [address] [id number] [place] [id number] Feb, [facility] [address] [facility] [id number] Dec, [facility] [address] [facility] [id number] Dec, [facility] [id number] [place] [address] Oct, [facility] [address] [place] [id number] [place] [address] Sep, [facility] [id number] [place] [address] Sep, [facility] [address] [address] Sep, [facility] [id number] [place] [address] Sep, [facility] [address] [address] March, [facility] [id number] [place] [address] Sep, [facility] [id number] [place] [address] Jul, [facility] [id number] [place] [address] May, [facility] [address] [id number] [place] [address] Jan, [facility] [address] [id number] [place] [address] Sep, [facility] [address] [id number] [place] [address] Aug, IMMUNIZATIONS No Known Immunizations SOCIAL HISTORY [...]
--- OUTSIDE RECORDS SUMMARY | 2020-05-31 11:43 | XMS REPORT ---
Author Author Jeane WOLFF Organization [facility] Address [address] [place] [address] Care Team Providers Care Screening Technician Name Role Phone NIKA WOLFF Unavailable PROBLEMS Type Condition ICD9-CM Code [id number] Code Onset Dates Condition S tatus SNOMED Code Problem Depression F32.9 Active 65740617 Problem Anxiety F41.9 Active 92640867 Problem Environmental allergies Z91.09 Active 050699179 Problem Atherosclerotic 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 Active 307731814 Problem Lumbago with sciatica, unspecified side M54.40 Active 933599458 Problem Chronic pain syndrome G89.4 Active 955009900 Problem Hypercholesterolemia with hypertriglyceridemia E78 .2 Active 912642715 Problem Major depressive disorder, recurrent sev ere without psychotic features F33.2 Active 38406259 Problem Dysthymia (or depressive neurosis) F34.1 Active 84787777 Problem Cigarette nicotine dependence without complication F17.210 Active 95719095 Problem Alcohol use disorder, moderate, in sustained remission F10.21 Active 36855899 Problem Cannabis use disorder, mild, abuse F12.10 Active 40466094 Problem Elevated blood pressure I10 Active 57846719 ALLERGIES No Information ENCOUNTERS Encounter Location Date Diagnosis [facility] [address] [facility] [id number] [address] [place] [phone] Dec, Major depressive disorder, r ecurrent severe without psychotic features F33.2 ; Chronic pain syndrome G89.4 and Encounter for immunization Z23 [facility] [address] [id number] [place] [id number] Aug, Elevated blood pressure I10 [facility] [address] [facility] [id number] [address] [place] [address] May, Hypercholesterolemia with hy pertriglyceridemia E78.2 and Atherosclerotic heart disease of [place] coronary 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 [facility] [address] [facility] [id number] [address] [place] [address] 11 Mar, 2018 Lumbago with sciatica, unspe cified side M54.40 ; Environmental allergies Z91.09 ; Hypercholesterolemia with hypertriglyceridemia E78.2 and Atherosclerotic heart disease of [place] coronary 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 [facility] [address] [facility] [id number] [address] [place] [address] 14 Dec, 2017 Severe episode of recurrent major depressive disorder, without psychotic features F33.2 ; Alcohol use disorder, moderate, in sustained remission F10.21 and Cannabis use disorder, mild, abuse F12.10 [facility] [address] [facility] [id number] [address] [place] [address] 12 Dec, 2017 Severe episode of recurrent major depressive disorder, without psychotic features F33.2 [facility] [address] [facility] [id number] [address] [place] [address] 18 Nov, 2017 [facility] [address] [id number] [address] [place] [address] 08 Nov, 2017 Atherosclerotic 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 ; Hypercholesterolemia with hypertriglyceridemia E78.2 ; Depression F32.9 and Cigarette nicotine dependence without complication F17.210 [facility] [address] [facility] [id number] [address] [place] [address] Oct, [facility] [address] [id number] [address] [place] [address] Jul, [facility] [address] [facility] [id number] [address] [place] [address] Jun, [facility] [address] [facility] [id number] [address] [place] [address] Apr, Pain in thoracic spine M54.6 and Lumbago with sciatica, unspecified side M54.40 [facility] [address] [facility] [id number] [address] [place] [address] March, [place] [address] [place] [id number] [address] [place] [address] March, Depression F32.[address] [address] March, Anxiety F41.9 ; Depression F 32.9 ; Atherosclerotic heart disease of [place] coronary 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 ; Hypercholesterolemia with hypertriglyceridemia E78.2 ; Right wrist tendonitis M77.8 and Environmental allergies Z91.09 [facility] [address] [id number] [place] S [id number] Dec, [address] [address] Nov, Iron deficiency anemia, unsp ecified iron deficiency anemia type D50.9 ; Anxiety F41.9 ; Dysthymia (or depressive neurosis) F34.1 and Hypercholesterolemia with hypertriglyceridemia E78.[address] [address] 14 Oct, [address] [address] Oct, [address] [address] Oct, Dysthymia (or depressive sherice rosis) F34.1 ; Atherosclerotic heart disease of [place] coronary 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 ; Coronary atherosclerosis due to lipid rich plaque I25.83 ; Hypercholesterolemia with hypertriglyceridemia E78.2 ; Iron deficiency anemia, unspecified iron deficiency anemia type D50.9 ; Hospital discharge follow-up Z09 ; History of PID Z87.42 ; Environmental allergies Z91.09 and Dysuria R30.[address] [address] Sep, [address] [address] Sep, [address] [address] Aug, Dysthymia F34.1 and Anxiety F41.9 [place] [address] [address] March, Coronary artery disease invo lving [place] coronary artery, angina presence unspecified, unspecified whether [place]ct[place] or transplanted heart I25.10 ; Bipolar 1 disorder, depressed F31.9 ; Anxiety F41.9 and Dysthymia F34.1 [place] [address] [address] 04 Feb, 2016 Depression F32.9 and Stomach pain R10.9 [place] [address] [address] Jan, Hyperlipidemia 272.4 [place] [address] [address] 17 Dec, 2015 [place] [address] [address] Dec, Major depressive disorder, r ecurrent episode, unspecified 296.30 ; Anxiety F41.9 ; Grief F43.20 and Dysthymia F34.1 [place] [address] [address] Dec, Anxiety F41.9 and Grief F43. 20 [place] [address] [address] Oct, Insomnia, unspecified G47.00 and Anxiety F41.9 [place] [address] [address] Oct, Dysthymia F34.1 ; Right shou lder pain M25.511 ; Sciatica, right M54.31 and Iron deficiency anemia, unspecified iron deficiency anemia type D50.9 [place] [address] [address] Sep, [place] [address] [address] Sep, Grief F43.20 [facility] [address] [address] Sep, [facility] [address] [address] Sep, [facility] [address] [address] Sep, Hyperlipidemia E78.5 ; CAD ( coronary artery disease) I25.10 and HTN (hypertension) I10 [facility] [address] [address] Aug, Allergic rhinitis, unspecifi ed allergic rhinitis type J30.9 [place] [address] [address] Aug, Left-sided low back pain wit h right-sided sciatica M54.41 and Hyperlipidemia, unspecified hyperlipidemia E78.5 [facility] [address] [address] Aug, Neck pain M54.2 and Low back pain M54.5 [facility] [address] [address] Jun, [facility] [address] [address] Jun, [facility] [address] [address] Jun, CAD (coronary artery disease ) 414.00 ; Hyperlipidemia 272.4 and Anemia 285.9 [facility] [address] [address] Feb, [facility] [address] [address] Feb, [facility] [address] [address] Jan, [facility] [address] [id number] [address] [place] [address], [place] [address] Jan, [facility] [address] [id number] [address] [place] [address], [place] [address] Jan, [facility] [address] [id number] [address] [place] [address], [place] [address] Jan, [facility] [address] [id number] [address] [place] [address], [place] [address] Dec, 2014 [facility] [address] [id number] [address] [place] [address], [place] [address] Dec, 2014 [facility] [address] [id number] [address] [place] [address], [place] [address] Dec, 2014 [facility] [address] [id number] [address] [place] [address], [place] [address] Dec, 2014 [facility] [address] [id number] [address] [place] [address], [place] [address] Dec, 2014 [facility] [address] [id number] [address] [place] [address], [place] [address] Dec, 2014 [facility] [address] [id number] [address] [place] [address], [place] [address] Dec, 2014 [facility] [address] [id number] [address] [place] [address], [place] [address] Dec, 2014 [facility] [address] [id number] [address] [place] [address], [place] [address] 12 Dec, 2014 [facility] [address] [id number] [address] [place] [address], [place] [address] Dec, 2014 [facility] [address] [id number] [address] [place] [address], [place] [address] 05 Dec, 2014 [facility] [address] [id number] [address] [place] [address], [place] [address] 05 Fe2014 [facility] [address] [id number] [address] [place] [address], [place] [address] Nov, [facility] [address] [id number] [address] [place] [address], [place] [address] Nov, [facility] [address] [id number] [address] [place] [address], [place] [address] Nov, [facility] [address] [id number] [address] [place] [address], [place] [address] Nov, [facility] [address] [id number] [address] [place] [address], [place] [address] Oct, [facility] [address] [id number] [address] [place] [address], [place] [address] Oct, [facility] [address] [id number] [address] [place] [address], [place] [address] Sep, [facility] [address] [id number] [address] [place] [address], [place] [address] Sep, [facility] [address] [id number] [address] [place] [address], [place] [address] Aug, [facility] [address] [id number] [address] [place] [address], [place] [address] 03 Aug, 2014 [facility] [address] [id number] [address] [place] [address], [place] [address] 30 Jul, 2014 [facility] [address] [id number] [address] [place] [address], [place] [address] 30 Jul, 2013 [facility] [address] [id number] [address] [place] [address], [place] [address] 16 Jul, 2014 [facility] [address] [id number] [address] [place] [address], [place] [address] 16 Jul, 2013 [facility] [address] [id number] [address] [place] [address], [place] [address] 15 Jul, 2014 [facility] [address] [id number] [address] [place] [address], [place] [address] Jul, [facility] [address] [id number] [facility] [place] [address] 12 Jul, 2014 [facility] [address] [id number] [address] [place] [address], [place] [address] Jul, [facility] [address] [id number] [address] [place] [address], [place] [address] Jul, [facility] [address] [id number] [address] [place] [address], [place] [address] Jul, [facility] [address] [id number] [address] [place] [address], [place] [address] Jul, [facility] [address] [id number] [address] [place] [address], [place] [address] Jul, [facility] [address] [id number] [address] [place] [address], [place] [address] Jul, [facility] [address] [id number] [address] [place] [address], [place] [address] Jun, [facility] [address] [id number] [address] [place] [address], [place] [address] Jun, [facility] [address] [id number] [address] [place] [address], [place] [address] Jun, [facility] [address] [id number] [address] [place] [address], [place] [address] Jun, [facility] [address] [id number] [address] [place] [address], [place] [address] Jun, [facility] [address] [id number] [address] [place] [address], [place] [address] Jun, [facility] [address] [id number] [address] [place] [address], [place] [address] Jun, [facility] [address] [id number] [address] [place] [address], [place] [address] Jun, [facility] [address] [id number] [facility] [place] [address] May, [facility] [address] [id number] [address] [place] [address], [place] [address] May, [facility] [address] [id number] [address] [place] [address], [place] [address] Apr, [facility] [address] [id number] [address] [place] [address], [place] [address] Apr, [facility] [address] [id number] [address] [place] [address], [place] [address] Apr, [facility] [address] [id number] [address] [place] [address], [place] [address] Apr, [facility] [address] [id number] [address] [place] [address], [place] [address] March, [facility] [address] [id number] [address] [place] [address], [place] [address] March, [facility] [address] [id number] [address] [place] [address], [place] [address] March, [facility] [address] [id number] [address] [place] [address], [place] [address] March, [facility] [address] [id number] [address] [place] [address], [place] [address] March, [facility] [address] [id number] [address] [place] [address], [place] [address] March, [facility] [address] [id number] [address] [place] [address], [place] [address] March, [facility] [address] [id number] [address] [place] [address], [place] [address] March, [facility] [address] [id number] [address] [place] [address], [place] [address] March, [facility] [address] [id number] [address] [place] [address], [place] [address] March, [facility] [address] [id number] [address] [place] [address], [place] [address] March, [facility] [address] [id number] [address] [place] [address], [place] [address] Nov, [facility] [address] [id number] [address] [place] [address], [place] [address] Nov, [facility] [address] [id number] [address] [place] [address], [place] [address] Nov, [facility] [address] [id number] [address] [place] [address], [place] [address] Oct, [facility] [address] [id number] [address] [place] [address], [place] [address] Oct, [facility] [address] [id number] [address] [place] [address], [place] [address] Aug, [facility] [address] [id number] [address] [place] [address] Aug, [facility] [place] [address] [id number] [place] [id number] Jun, [facility] [place] [address] [id number] [place] [id number] Apr, [facility] [address] [id number] [address] [place] [address] Apr, [facility] [address] [id number] [address] [place] [address], [place] [address] Apr, [facility] [place] [address] [id number] [place] [id number] March, [facility] [place] [address] [id number] [place] [id number] Feb, [facility] [place] [address] [id number] [place] [id number] Jan, [facility] [address] [id number] [address] [place] [address], [place] [address] Jan, [facility] [address] [id number] [address] [place] [address], [place] [address] Jan, [facility] [address] [id number] [address] [place] [address], [place] [address] Jan, [facility] [place] [address] [id number] [place] [id number] Dec, [facility] [place] [address] [id number] [place] [id number] Dec, [facility] [address] [id number] [address] [place] [address], [place] [address] Dec, [facility] [address] [id number] [address] [place] [address], [place] [address] Dec, [facility] [address] [id number] [address] [place] [address], [place] [address] Dec, [facility] [address] [id number] [address] [place] [address], [place] [address] Nov, [facility] [address] [id number] [address] [place] [address] Nov, [facility] [place] [address] [id number] [place] [id number] Nov, [facility] [address] [id number] [address] [place] [address] Nov, [facility] [place] [address] [id number] [place] [id number] Nov, [facility] [place] [address] [id number] [place] [id number] Nov, [facility] [place] [address] [id number] [place] [id number] Oct, [facility] [place] [address] [id number] [place] [id number] Oct, [facility] [address] [id number] [address] [place] [address] Oct, [facility] [address] [id number] [address] [place] [address] Oct, [facility] [address] [facility] [address] [id number] [address] [place] [address] Oct, [facility] [address] [id number] [address] [place] [address] Sep, [facility] [address] [id number] [address] [place] [address] Sep, [facility] [address] [id number] [place] [id number] Sep, [facility] [address] [id number] [place] [id number] Sep, [facility] [address] [id number] [place] [id number] Sep, [facility] [address] [id number] [address] [place] [address] Sep, [facility] [address] [id number] [address] [place] [address] Aug, [facility] [place] [address] [id number] [place] [id number] Aug, [facility] [address] [address] [id number] [address] [place] [address] Aug, [facility] [address] [id number] [place] [id number] Jul, [facility] [address] [id number] [place] [id number] Jul, [facility] [address] [id number] [place] [id number] Jun, [facility] [place] [address] [id number] [place] [id number] May, [facility] [place] [address] [id number] [place] [id number] Feb, [facility] [place] [address] [id number] [place] [id number] Feb, [facility] [place] [address] [id number] [place] [id number] Feb, [facility] [address] [id number] [place] [id number] Dec, [facility] [address] [id number] [place] [id number] Dec, [facility] [address] [id number] [address] [place] [address] Oct, [facility] [address] [id number] [address] [place] [address] Sep, [facility] [address] [id number] [address] [place] [address] Sep, [facility] [address] [id number] [address] [place] [address] Sep, [facility] [address] [id number] [address] [place] [address] Sep, [facility] [address] [id number] [address] [place] [address] March, [facility] [address] [id number] [address] [place] [address] Sep, [facility] [address] [id number] [address] [place] [address] Jul, [facility] [address] [id number] [address] [place] [address] May, [facility] [address] [id number] [address] [place] [address] Jan, [facility] [address] [id number] [address] [place] [id number] Sep, [facility] [address] [facility] [id number] [address] [place] [address] Aug, IMMUNIZATIONS No Known Immunizations SOCIAL HISTORY [...]
--- OUTSIDE RECORDS SUMMARY | 2020-05-31 11:43 | XMS REPORT ---
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 Name Role Phone NIKA WOLFF Unavailable PROBLEMS Type Condition ICD9-CM Code NPE26-GI Code Onset Dates Condition S tatus SNOMED Code Problem Depression F32.9 Active 32669288 Problem Anxiety F41.9 Active 49351994 Problem Environmental allergies Z91.09 Active 236828642 Problem Atherosclerotic heart 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 Active 046435950 Problem Lumbago with sciatica, unspecified side M54.40 Active 174262484 Problem Chronic pain syndrome G89.4 Active 442699757 Problem Hypercholesterolemia with hypertriglyceridemia E78 .2 Active 142078062 Problem Major depressive disorder, recurrent sev ere without psychotic features F33.2 Active 05857093 Problem Dysthymia (or depressive neurosis) F34.1 Active 75312943 Problem Cigarette nicotine dependence without complication F17.210 Active 97072392 Problem Alcohol use disorder, moderate, in sustained remission F10.21 Active 18671830 Problem Cannabis use disorder, mild, abuse F12.10 Active 51437178 Problem Elevated blood pressure I10 Active 44815492 ALLERGIES No Information ENCOUNTERS Encounter Location Date Diagnosis [facility] [address] [facility] [id number] [address] [place] [address] Dec, Major depressive disorder, r ecurrent severe without psychotic features F33.2 ; Chronic pain syndrome G89.4 and Encounter for immunization Z23 [facility] [address] [id number] [place] [id number] Aug, Elevated blood pressure I10 [facility] [address] [facility] [id number] [address] [place] [address] May, Hypercholesterolemia with hy pertriglyceridemia E78.2 and Atherosclerotic heart disease of [place] coronary 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 [facility] [address] [facility] [id number] [address] [place] [address] 11 Mar, 2018 Lumbago with sciatica, unspe cified side M54.40 ; Environmental allergies Z91.09 ; Hypercholesterolemia with hypertriglyceridemia E78.2 and Atherosclerotic heart disease of [place] coronary 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 [facility] [address] [facility] [id number] [address] [place] [address] 14 Dec, 2017 Severe episode of recurrent major depressive disorder, without psychotic features F33.2 ; Alcohol use disorder, moderate, in sustained remission F10.21 and Cannabis use disorder, mild, abuse F12.10 [facility] [address] [facility] [id number] [address] [place] [address] 12 Dec, 2017 Severe episode of recurrent major depressive disorder, without psychotic features F33.2 [place] [address] [facility] [id number] [address] [place] [address] 18 Nov, 2017 [facility] [address] [facility] [id number] [address] [place] [address] 08 Nov, 2017 Atherosclerotic heart 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 ; Hypercholesterolemia with hypertriglyceridemia E78.2 ; Depression F32.9 and Cigarette nicotine dependence without complication F17.210 [facility] [address] [facility] [id number] [address] [place] [address] Oct, [facility] [address] [id number] [address] [place] [address] Jul, [facility] [address] [facility] [id number] [address] [place] [address] Jun, [facility] [address] [facility] [id number] [address] [place] [address] Apr, Pain in thoracic spine M54.6 and Lumbago with sciatica, unspecified side M54.40 [facility] [address] [facility] [id number] [address] [place] [address] March, [place] [address] [address] [place] [id number] [address] [place] [address] March, Depression F32.[address] [address] March, Anxiety F41.9 ; Depression F 32.9 ; Atherosclerotic heart disease of [place] coronary 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 ; Hypercholesterolemia with hypertriglyceridemia E78.2 ; Right wrist tendonitis M77.8 and Environmental allergies Z91.09 [facility] [address] [id number] [place] [id number] Dec, [address] [address] Nov, Iron deficiency anemia, unsp ecified iron deficiency anemia type D50.9 ; Anxiety F41.9 ; Dysthymia (or depressive neurosis) F34.1 and Hypercholesterolemia with hypertriglyceridemia E78.[address] [address] 14 Oct, [address] [address] Oct, [address] [address] Oct, Dysthymia (or depressive sherice rosis) F34.1 ; Atherosclerotic heart disease of [place] coronary 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 ; Coronary atherosclerosis due to lipid rich plaque I25.83 ; Hypercholesterolemia with hypertriglyceridemia E78.2 ; Iron deficiency anemia, unspecified iron deficiency anemia type D50.9 ; Hospital discharge follow-up Z09 ; History of PID Z87.42 ; Environmental allergies Z91.09 and Dysuria R30.[address] [address] Sep, [address] [address] Sep, [address] [address] Aug, Dysthymia F34.1 and Anxiety F41.9 [place] [address] [address] March, Coronary artery disease invo lving [place] coronary artery, angina presence unspecified, unspecified whether [place] or transplanted heart I25.10 ; Bipolar 1 disorder, depressed F31.9 ; Anxiety F41.9 and Dysthymia F34.1 [place] [address] [address] 04 Feb, 2016 Depression F32.9 and Stomach pain R10.9 [place] [address] [address] Jan, Hyperlipidemia 272.4 [place] [address] [address] 17 Dec, 2015 [place] [address] [address] Dec, Major depressive disorder, r ecurrent episode, unspecified 296.30 ; Anxiety F41.9 ; Grief F43.20 and Dysthymia F34.1 [place] [address] [address] Dec, Anxiety F41.9 and Grief F43. 20 [place] [address] [address] Oct, Insomnia, unspecified G47.00 and Anxiety F41.9 [place] [address] [address] Oct, Dysthymia F34.1 ; Right shou lder pain M25.511 ; Sciatica, right M54.31 and Iron deficiency anemia, unspecified iron deficiency anemia type D50.9 [place] [address] [address] Sep, [place] [address] [address] Sep, Grief F43.20 [facility] [address] [address] Sep, [facility] [address] [address] Sep, [facility] [address] [address] Sep, Hyperlipidemia E78.5 ; CAD ( coronary artery disease) I25.10 and HTN (hypertension) I10 [facility] [address] [address] Aug, Allergic rhinitis, unspecifi ed allergic rhinitis type J30.9 [place] [address] [address] Aug, Left-sided low back pain wit h right-sided sciatica M54.41 and Hyperlipidemia, unspecified hyperlipidemia E78.5 [facility] [address] [address] Aug, Neck pain M54.2 and Low back pain M54.5 [facility] [address] [address] Jun, [facility] [address] [address] Jun, [facility] [address] [address] Jun, CAD (coronary artery disease ) 414.00 ; Hyperlipidemia 272.4 and Anemia 285.9 [facility] [address] [address] Feb, [facility] [address] [address] Feb, [facility] [address] [address] Jan, [facility] [address] [id number] [address] [place] [address], [place] [address] Jan, [facility] [address] [id number] [address] [place] [address], [place] [address] Jan, [facility] [address] [id number] [address] [place] [address], [place] [address] Jan, [facility] [address] [id number] [address] [place] [address], [place] [address] Dec, 2014 [facility] [address] [id number] [address] [place] [address], [place] [address] Dec, 2014 [facility] [address] [id number] [address] [place] [address], [place] [address] Dec, 2014 [facility] [address] [id number] [address] [place] [address], [place] [address] Dec, 2014 [facility] [address] [id number] [address] [place] [address], [place] [address] Dec, 2014 [facility] [address] [id number] [address] [place] [address], [place] [address] Dec, 2014 [facility] [address] [id number] [address] [place] [address], [place] [address] Dec, 2014 [facility] [address] [id number] [address] [place] [address], [place] [address] Dec, 2014 [facility] [address] [id number] [address] [place] [address], [place] [address] 12 Dec, 2014 [facility] [address] [id number] [address] [place] [address], [place] [address] Dec, 2014 [facility] [address] [id number] [address] [place] [address], [place] [address] 05 Dec, 2014 [facility] [address] [id number] [address] [place] [address], [place] [address] 05 Fe2014 [facility] [address] [id number] [address] [place] [address], [place] [address] Nov, [facility] [address] [id number] [address] [place] [address], [place] [address] Nov, [facility] [address] [id number] [address] [place] [address], [place] [address] Nov, [facility] [address] [id number] [address] [place] [address], [place] [address] Nov, [facility] [address] [id number] [address] [place] [address], [place] [address] Oct, [facility] [address] [id number] [address] [place] [address], [place] [address] Oct, [facility] [address] [id number] [address] [place] [address], [place] [address] Sep, [facility] [address] [id number] [address] [place] [address], [place] [address] Sep, [facility] [address] [id number] [address] [place] [address], [place] [address] Aug, [facility] [address] [id number] [address] [place] [address], [place] [address] 03 Aug, 2014 [facility] [address] [id number] [address] [place] [address], [place] [address] 30 Jul, 2014 [facility] [address] [id number] [address] [place] [address], [place] [address] 30 Jul, 2013 [facility] [address] [id number] [address] [place] [address], [place] [address] 16 Jul, 2014 [facility] [address] [id number] [address] [place] [address], [place] [address] 16 Jul, 2013 [facility] [address] [id number] [address] [place] [address], [place] [address] 15 Jul, 2014 [facility] [address] [id number] [address] [place] [address], [place] [address] Jul, [facility] [address] [id number] [facility] [place] [address] 12 Jul, 2014 [facility] [address] [id number] [address] [place] [address], [place] [address] Jul, [facility] [address] [id number] [address] [place] [address], [place] [address] Jul, [facility] [address] [id number] [address] [place] [address], [place] [address] Jul, [facility] [address] [id number] [address] [place] [address], [place] [address] Jul, [facility] [address] [id number] [address] [place] [address], [place] [address] Jul, [facility] [address] [id number] [address] [place] [address], [place] [address] Jul, [facility] [address] [id number] [address] [place] [address], [place] [address] Jun, [facility] [address] [id number] [address] [place] [address], [place] [address] Jun, [facility] [address] [id number] [address] [place] [address], [place] [address] Jun, [facility] [address] [id number] [address] [place] [address], [place] [address] Jun, [facility] [address] [id number] [address] [place] [address], [place] [address] Jun, [facility] [address] [id number] [address] [place] [address], [place] [address] Jun, [facility] [address] [id number] [address] [place] [address], [place] [address] Jun, [facility] [address] [id number] [address] [place] [address], [place] [address] Jun, [facility] [address] [id number] [facility] [place] [address] May, [facility] [address] [id number] [address] [place] [address], [place] [address] May, [facility] [address] [id number] [address] [place] [address], [place] [address] Apr, [facility] [address] [id number] [address] [place] [address], [place] [address] Apr, [facility] [address] [id number] [address] [place] [address], [place] [address] Apr, [facility] [address] [id number] [address] [place] [address], [place] [address] Apr, [facility] [address] [id number] [address] [place] [address], [place] [address] March, [facility] [address] [id number] [address] [place] [address], [place] [address] March, [facility] [address] [id number] [address] [place] [address], [place] [address] March, [facility] [address] [id number] [address] [place] [address], [place] [address] March, [facility] [address] [id number] [address] [place] [address], [place] [address] March, [facility] [address] [id number] [address] [place] [address], [place] [address] March, [facility] [address] [id number] [address] [place] [address], [place] [address] March, [facility] [address] [id number] [address] [place] [address], [place] [address] March, [facility] [address] [id number] [address] [place] [address], [place] [address] March, [facility] [address] [id number] [address] [place] [address], [place] [address] March, [facility] [address] [id number] [address] [place] [address], [place] [address] March, [facility] [address] [id number] [address] [place] [address], [place] [address] Nov, [facility] [address] [id number] [address] [place] [address], [place] [address] Nov, [facility] [address] [id number] [address] [place] [address], [place] [address] Nov, [facility] [address] [id number] [address] [place] [address], [place] [address] Oct, [facility] [address] [id number] [address] [place] [address], [place] [address] Oct, [facility] [address] [id number] [address] [place] [address], [place] [address] Aug, [facility] [address] [id number] [address] [place] [address] Aug, [facility] [address] [id number] [place] [id number] Jun, [facility] [place] [address] [id number] [place] [id number] Apr, [facility] [address] [id number] [address] [place] [address] Apr, [facility] [address] [id number] [address] [place] [address], [place] [address] Apr, [facility] [place] [address] [id number] [place] [id number] March, [facility] [place] [address] [id number] [place] [id number] Feb, [facility] [place] [address] [id number] [place] [id number] Jan, [facility] [address] [id number] [address] [place] [address], [place] [address] Jan, [facility] [address] [id number] [address] [place] [address], [place] [address] Jan, [facility] [address] [id number] [address] [place] [address], [place] [address] Jan, [facility] [place] [address] [id number] [place] [id number] Dec, [facility] [place] [address] [id number] [place] [id number] Dec, [facility] [address] [id number] [address] [place] [address], [place] [address] Dec, [facility] [address] [facility] [id number] [address] [place] [address], [place] [address] Dec, [facility] [address] [facility] [id number] [address] [place] [address], [place] [address] Dec, [facility] [address] [facility] [id number] [address] [place] [address], [place] [address] Nov, [facility] [address] [id number] [address] [place] [address] Nov, [facility] [place] [address] [id number] [place] [id number] Nov, [facility] [address] [facility] [id number] [address] [place] [address] Nov, [facility] [place] [address] [id number] [place] [id number] Nov, [facility] [place] [address] [id number] [place] [id number] Nov, [facility] [place] [address] [id number] [place] [id number] Oct, [facility] [place] [address] [id number] [place] [id number] Oct, [facility] [address] [id number] [address] [place] [address] Oct, [facility] [address] [id number] [address] [place] [address] Oct, [facility] [address] [facility] [id number] [address] [place] [address] Oct, [facility] [address] [facility] [id number] [address] [place] [address] Sep, [facility] [address] [facility] [id number] [address] [place] [address] Sep, [facility] [place] [address] [id number] [place] [id number] Sep, [facility] [address] [id number] [place] [id number] Sep, [facility] [address] [id number] [place] [id number] Sep, [facility] [address] [facility] [id number] [address] [place] [address] Sep, [facility] [address] [facility] [id number] [address] [place] [address] Aug, [facility] [address] [id number] [place] [id number] Aug, [facility] [address] [facility] [id number] [address] [place] [address] Aug, [facility] [place] [address] [id number] [place] [id number] Jul, [facility] [address] [id number] [place] [id number] Jul, [facility] [place] [address] [id number] [place] [id number] Jun, [facility] [place] [address] [id number] [place] [id number] May, [facility] [place] [address] [id number] [place] [id number] Feb, [facility] [address] [id number] [place] [id number] Feb, [facility] [place] [address] [id number] [place] [id number] Feb, [facility] [address] [id number] [place] [id number] Dec, [facility] [address] [id number] [place] [id number] Dec, [facility] [address] [id number] [address] [place] [address] Oct, [facility] [address] [id number] [address] [place] [address] Sep, [facility] [address] [id number] [address] [place] [address] Sep, [facility] [address] [id number] [address] [place] [address] Sep, [facility] [address] [id number] [address] [place] [id number] Sep, [facility] [address] [id number] [address] [place] [id number] March, [facility] [address] [id number] [address] [place] [id number] Sep, [facility] [address] [facility] [id number] [address] [place] [id number] Jul, [facility] [address] [id number] [address] [place] [id number] May, [facility] [address] [id number] [address] [place] [id number] Jan, [facility] [address] [id number] [address] [place] [id number] Sep, [facility] [address] [facility] [id number] [address] [place] [id number] Aug, IMMUNIZATIONS No Known Immunizations SOCIAL HISTORY [...]
--- OUTSIDE RECORDS SUMMARY | 2020-05-31 11:43 | XMS REPORT ---
Author Author Jeane WOLFF Organization [facility] Address [address] [place] [address] Care Team Providers Care Special Skills Officer Name Role Phone NIKA WOLFF Unavailable PROBLEMS Type Condition ICD9-CM Code [id number] Code Onset Dates Condition S tatus SNOMED Code Problem Depression F32.9 Active 62429273 Problem Anxiety F41.9 Active 92131875 Problem Environmental allergies Z91.09 Active 293125035 Problem Atherosclerotic heart 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 Active 068300431 Problem Lumbago with sciatica, unspecified side M54.40 Active 247317908 Problem Chronic pain syndrome G89.4 Active 287862531 Problem Hypercholesterolemia with hypertriglyceridemia E78 .2 Active 214289416 Problem Major depressive disorder, recurrent sev ere without psychotic features F33.2 Active 28787374 Problem Dysthymia (or depressive neurosis) F34.1 Active 73256972 Problem Cigarette nicotine dependence without complication F17.210 Active 25899075 Problem Alcohol use disorder, moderate, in sustained remission F10.21 Active 77127293 Problem Cannabis use disorder, mild, abuse F12.10 Active 55521778 Problem Elevated blood pressure I10 Active 68434326 ALLERGIES No Information ENCOUNTERS Encounter Location Date Diagnosis [facility] [address] [facility] [id number] [address] [place] [address] Dec, Major depressive disorder, r ecurrent severe without psychotic features F33.2 ; Chronic pain syndrome G89.4 and Encounter for immunization Z23 [facility] [address] [id number] [place] [id number] Aug, Elevated blood pressure I10 [facility] [address] [facility] [id number] [address] [place] [address] May, Hypercholesterolemia with hy pertriglyceridemia E78.2 and Atherosclerotic heart disease of [place] coronary 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 [facility] [address] [facility] [id number] [address] [place] [address] 11 Mar, 2018 Lumbago with sciatica, unspe cified side M54.40 ; Environmental allergies Z91.09 ; Hypercholesterolemia with hypertriglyceridemia E78.2 and Atherosclerotic heart disease of [place] coronary 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 [facility] [address] [facility] [id number] [address] [place] [address] 14 Dec, 2017 Severe episode of recurrent major depressive disorder, without psychotic features F33.2 ; Alcohol use disorder, moderate, in sustained remission F10.21 and Cannabis use disorder, mild, abuse F12.10 [facility] [address] [facility] [id number] [address] [place] [address] 12 Dec, 2017 Severe episode of recurrent major depressive disorder, without psychotic features F33.2 [place] [place] [address] [facility] [id number] [address] [place] [address] 18 Nov, 2017 [facility] [address] [facility] [id number] [address] [place] [address] 08 Nov, 2017 Atherosclerotic heart 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 ; Hypercholesterolemia with hypertriglyceridemia E78.2 ; Depression F32.9 and Cigarette nicotine dependence without complication F17.210 [facility] [address] [facility] [id number] [address] [place] [address] Oct, [facility] [address] [id number] [address] [place] [address] Jul, [facility] [address] [facility] [id number] [address] [place] [address] Jun, [facility] [address] [facility] [id number] [address] [place] [address] Apr, Pain in thoracic spine M54.6 and Lumbago with sciatica, unspecified side M54.40 [facility] [address] [facility] [id number] [address] [place] [address] March, [place] [address] [place] [id number] [address] [place] [address] March, Depression F32.[address] [address] March, Anxiety F41.9 ; Depression F 32.9 ; Atherosclerotic heart disease of [place] coronary 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 ; Hypercholesterolemia with hypertriglyceridemia E78.2 ; Right wrist tendonitis M77.8 and Environmental allergies Z91.09 [facility] [address] [id number] [place] [id number] Dec, [address] [address] Nov, Iron deficiency anemia, unsp ecified iron deficiency anemia type D50.9 ; Anxiety F41.9 ; Dysthymia (or depressive neurosis) F34.1 and Hypercholesterolemia with hypertriglyceridemia E78.[address] [address] 14 Oct, [address] [address] Oct, [address] [address] Oct, Dysthymia (or depressive sherice rosis) F34.1 ; Atherosclerotic heart disease of [place] coronary 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 ; Coronary atherosclerosis due to lipid rich plaque I25.83 ; Hypercholesterolemia with hypertriglyceridemia E78.2 ; Iron deficiency anemia, unspecified iron deficiency anemia type D50.9 ; Hospital discharge follow-up Z09 ; History of PID Z87.42 ; Environmental allergies Z91.09 and Dysuria R30.[address] [address] Sep, [address] [address] Sep, [address] [address] Aug, Dysthymia F34.1 and Anxiety F41.9 [place] [address] [address] March, Coronary artery disease invo lving [place] coronary artery, angina presence unspecified, unspecified whether [place] or transplanted heart I25.10 ; Bipolar 1 disorder, depressed F31.9 ; Anxiety F41.9 and Dysthymia F34.1 [place] [address] [address] 04 Feb, 2016 Depression F32.9 and Stomach pain R10.9 [place] [address] [address] Jan, Hyperlipidemia 272.4 [place] [address] [address] 17 Dec, 2015 [place] [address] [address] Dec, Major depressive disorder, r ecurrent episode, unspecified 296.30 ; Anxiety F41.9 ; Grief F43.20 and Dysthymia F34.1 [place] [address] [address] Dec, Anxiety F41.9 and Grief F43. 20 [place] [address] [address] Oct, Insomnia, unspecified G47.00 and Anxiety F41.9 [place] [address] [address] Oct, Dysthymia F34.1 ; Right shou lder pain M25.511 ; Sciatica, right M54.31 and Iron deficiency anemia, unspecified iron deficiency anemia type D50.9 [place] [address] [address] Sep, [place] [address] [address] Sep, Grief F43.20 [facility] [address] [address] Sep, [facility] [address] [address] Sep, [facility] [address] [address] Sep, Hyperlipidemia E78.5 ; CAD ( coronary artery disease) I25.10 and HTN (hypertension) I10 [facility] [address] [address] Aug, Allergic rhinitis, unspecifi ed allergic rhinitis type J30.9 [place] [place] [address] [address] Aug, Left-sided low back pain wit h right-sided sciatica M54.41 and Hyperlipidemia, unspecified hyperlipidemia E78.5 [facility] [address] [address] Aug, Neck pain M54.2 and Low back pain M54.5 [facility] [address] [address] Jun, [facility] [address] [address] Jun, [facility] [address] [address] Jun, CAD (coronary artery disease ) 414.00 ; Hyperlipidemia 272.4 and Anemia 285.9 [facility] [address] [address] Feb, [facility] [address] [address] Feb, [facility] [address] [address] Jan, [facility] [address] [id number] [address] [place] [address], [place] [address] Jan, [facility] [address] [id number] [address] [place] [address], [place] [address] Jan, [facility] [address] [id number] [address] [place] [address], [place] [address] Jan, [facility] [address] [id number] [address] [place] [address], [place] [address] Dec, 2014 [facility] [address] [id number] [address] [place] [address], [place] [address] Dec, 2014 [facility] [address] [id number] [address] [place] [address], [place] [address] Dec, 2014 [facility] [address] [id number] [address] [place] [address], [place] [address] Dec, 2014 [facility] [address] [id number] [address] [place] [address], [place] [address] Dec, 2014 [facility] [address] [id number] [address] [place] [address], [place] [address] Dec, 2014 [facility] [address] [id number] [address] [place] [address], [place] [address] Dec, 2014 [facility] [address] [id number] [address] [place] [address], [place] [address] Dec, 2014 [facility] [address] [id number] [address] [place] [address], [place] [address] 12 Dec, 2014 [facility] [address] [id number] [address] [place] [address], [place] [address] Dec, 2014 [facility] [address] [id number] [address] [place] [address], [place] [address] 05 Dec, 2014 [facility] [address] [id number] [address] [place] [address], [place] [address] 05 Fe2014 [facility] [address] [id number] [address] [place] [address], [place] [address] Nov, [facility] [address] [id number] [address] [place] [address], [place] [address] Nov, [facility] [address] [id number] [address] [place] [address], [place] [address] Nov, [facility] [address] [id number] [address] [place] [address], [place] [address] Nov, [facility] [address] [id number] [address] [place] [address], [place] [address] Oct, [facility] [address] [id number] [address] [place] [address], [place] [address] Oct, [facility] [address] [id number] [address] [place] [address], [place] [address] Sep, [facility] [address] [id number] [address] [place] [address], [place] [address] Sep, [facility] [address] [id number] [address] [place] [address], [place] [address] Aug, [facility] [address] [id number] [address] [place] [address], [place] [address] 03 Aug, 2014 [facility] [address] [id number] [address] [place] [address], [place] [address] 30 Jul, 2014 [facility] [address] [id number] [address] [place] [address], [place] [address] 30 Jul, 2013 [facility] [address] [id number] [address] [place] [address], [place] [address] 16 Jul, 2014 [facility] [address] [id number] [address] [place] [address], [place] [address] 16 Jul, 2013 [facility] [address] [id number] [address] [place] [address], [place] [address] 15 Jul, 2014 [facility] [address] [id number] [address] [place] [address], [place] [address] Jul, [facility] [address] [id number] [facility] [place] [address] 12 Jul, 2014 [facility] [address] [id number] [address] [place] [address], [place] [address] Jul, [facility] [address] [id number] [address] [place] [address], [place] [address] Jul, [facility] [address] [id number] [address] [place] [address], [place] [address] Jul, [facility] [address] [id number] [address] [place] [address], [place] [address] Jul, [facility] [address] [id number] [address] [place] [address], [place] [address] Jul, [facility] [address] [id number] [address] [place] [address], [place] [address] Jul, [facility] [address] [id number] [address] [place] [address], [place] [address] Jun, [facility] [address] [id number] [address] [place] [address], [place] [address] Jun, [facility] [address] [id number] [address] [place] [address], [place] [address] Jun, [facility] [address] [id number] [address] [place] [address], [place] [address] Jun, [facility] [address] [id number] [address] [place] [address], [place] [address] Jun, [facility] [address] [id number] [address] [place] [address], [place] [address] Jun, [facility] [address] [id number] [address] [place] [address], [place] [address] Jun, [facility] [address] [id number] [address] [place] [address], [place] [address] Jun, [facility] [address] [id number] [facility] [place] [address] May, [facility] [address] [id number] [address] [place] [address], [place] [address] May, [facility] [address] [id number] [address] [place] [address], [place] [address] Apr, [facility] [address] [id number] [address] [place] [address], [place] [address] Apr, [facility] [address] [id number] [address] [place] [address], [place] [address] Apr, [facility] [address] [id number] [address] [place] [address], [place] [address] Apr, [facility] [address] [id number] [address] [place] [address], [place] [address] March, [facility] [address] [id number] [address] [place] [address], [place] [address] March, [facility] [address] [id number] [address] [place] [address], [place] [address] March, [facility] [address] [id number] [address] [place] [address], [place] [address] March, [facility] [address] [id number] [address] [place] [address], [place] [address] March, [facility] [address] [id number] [address] [place] [address], [place] [address] March, [facility] [address] [id number] [address] [place] [address], [place] [address] March, [facility] [address] [id number] [address] [place] [address], [place] [address] March, [facility] [address] [id number] [address] [place] [address], [place] [address] March, [facility] [address] [id number] [address] [place] [address], [place] [address] March, [facility] [address] [id number] [address] [place] [address], [place] [address] March, [facility] [address] [id number] [address] [place] [address], [place] [address] Nov, [facility] [address] [id number] [address] [place] [address], [place] [address] Nov, [facility] [address] [id number] [address] [place] [address], [place] [address] Nov, [facility] [address] [id number] [address] [place] [address], [place] [address] Oct, [facility] [address] [id number] [address] [place] [address], [place] [address] Oct, [facility] [address] [id number] [address] [place] [address], [place] [address] Aug, [facility] [address] [id number] [address] [place] [address] Aug, [facility] [place] [address] [id number] [place] [id number] Jun, [facility] [place] [address] [id number] [place] [id number] Apr, [facility] [address] [id number] [address] [place] [address] Apr, [facility] [address] [id number] [address] [place] [address], [place] [address] Apr, [facility] [place] [address] [id number] [place] [id number] March, [facility] [place] [address] [id number] [place] [id number] Feb, [facility] [place] [address] [id number] [place] [id number] Jan, [facility] [address] [id number] [address] [place] [address], [place] [address] Jan, [facility] [address] [id number] [address] [place] [address], [place] [address] Jan, [facility] [address] [id number] [address] [place] [address], [place] [address] Jan, [facility] [place] [address] [id number] [place] [id number] Dec, [facility] [place] [address] [id number] [place] [id number] Dec, [facility] [address] [id number] [address] [place] [address], [place] [address] Dec, [facility] [address] [facility] [id number] [address] [place] [address], [place] [address] Dec, [facility] [address] [facility] [id number] [address] [place] [address], [place] [address] Dec, [facility] [address] [facility] [id number] [address] [place] [address], [place] [address] Nov, [facility] [address] [id number] [address] [place] [address] Nov, [facility] [place] [address] [id number] [place] [id number] Nov, [facility] [address] [facility] [id number] [address] [place] [address] Nov, [facility] [place] [address] [id number] [place] [id number] Nov, [facility] [place] [address] [id number] [place] [id number] Nov, [facility] [place] [address] [id number] [place] [id number] Oct, [facility] [place] [address] [id number] [place] [id number] Oct, [facility] [address] [id number] [address] [place] [address] Oct, [facility] [address] [id number] [address] [place] [address] Oct, [facility] [address] [facility] [id number] [address] [place] [address] Oct, [facility] [address] [facility] [id number] [address] [place] [address] Sep, [facility] [address] [facility] [id number] [address] [place] [address] Sep, [facility] [place] [address] [id number] [place] [id number] Sep, [facility] [place] [address] [id number] [place] [id number] Sep, [facility] [address] [id number] [place] [id number] Sep, [facility] [address] [facility] [id number] [address] [place] [address] Sep, [facility] [address] [facility] [id number] [address] [place] [address] Aug, [facility] [place] [address] [id number] [place] [id number] Aug, [facility] [address] [facility] [id number] [address] [place] [address] Aug, [facility] [place] [address] [id number] [place] [id number] Jul, [facility] [place] [address] [id number] [place] [id number] Jul, [facility] [place] [address] [id number] [place] [id number] Jun, [facility] [place] [address] [id number] [place] [id number] May, [facility] [place] [address] [id number] [place] [id number] Feb, [facility] [place] [address] [id number] [place] [id number] Feb, [facility] [place] [address] [id number] [place] [id number] Feb, [facility] [address] [id number] [place] [id number] Dec, [facility] [address] [id number] [place] [id number] Dec, [facility] [address] [id number] [address] [place] [address] Oct, [facility] [address] [id number] [address] [place] [phone] Sep, [facility] [address] [id number] [address] [place] [id number] Sep, [facility] [address] [id number] [address] [place] [id number] Sep, [facility] [address] [id number] [address] [place] [id number] Sep, [facility] [address] [id number] [address] [place] [phone] March, [facility] [address] [id number] [address] [place] [phone] Sep, [facility] [address] [facility] [id number] [address] [place] [phone] Jul, [facility] [address] [id number] [address] [place] [phone] May, [facility] [address] [id number] [address] [place] [id number] Jan, [facility] [address] [id number] [address] [place] [id number] Sep, [facility] [address] [facility] [id number] [address] [place] [phone] Aug, IMMUNIZATIONS No Known Immunizations SOCIAL HISTORY [...]
--- OUTSIDE RECORDS SUMMARY | 2020-05-31 11:43 | XMS REPORT ---
Author Author Jeane WOLFF Organization [facility] Address [address] [place] [address] Care Team Providers Care E Merchant Name Role Phone NIKA WOLFF Unavailable PROBLEMS Type Condition ICD9-CM Code [id number] Code Onset Dates Condition S tatus SNOMED Code Problem Depression F32.9 Active 62978655 Problem Anxiety F41.9 Active 69996757 Problem Environmental allergies Z91.09 Active 970877049 Problem Atherosclerotic heart 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 Active 002631851 Problem Lumbago with sciatica, unspecified side M54.40 Active 509456205 Problem Chronic pain syndrome G89.4 Active 631187476 Problem Hypercholesterolemia with hypertriglyceridemia E78 .2 Active 931581737 Problem Major depressive disorder, recurrent sev ere without psychotic features F33.2 Active 87727040 Problem Dysthymia (or depressive neurosis) F34.1 Active 28373314 Problem Cigarette nicotine dependence without complication F17.210 Active 67824719 Problem Alcohol use disorder, moderate, in sustained remission F10.21 Active 26592362 Problem Cannabis use disorder, mild, abuse F12.10 Active 88518543 Problem Elevated blood pressure I10 Active 11538661 ALLERGIES No Information ENCOUNTERS Encounter Location Date Diagnosis [facility] [address] [facility] [id number] [address] [place] [address] Dec, Major depressive disorder, r ecurrent severe without psychotic features F33.2 ; Chronic pain syndrome G89.4 and Encounter for immunization Z23 [facility] [address] [id number] [place] [id number] Aug, Elevated blood pressure I10 [facility] [address] [facility] [id number] [address] [place] [address] May, Hypercholesterolemia with hy pertriglyceridemia E78.2 and Atherosclerotic heart disease of [place] coronary 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 [facility] [address] [facility] [id number] [address] [place] [address] 11 Mar, 2018 Lumbago with sciatica, unspe cified side M54.40 ; Environmental allergies Z91.09 ; Hypercholesterolemia with hypertriglyceridemia E78.2 and Atherosclerotic heart disease of [place] coronary 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 [facility] [address] [facility] [id number] [address] [place] [address] 14 Dec, 2017 Severe episode of recurrent major depressive disorder, without psychotic features F33.2 ; Alcohol use disorder, moderate, in sustained remission F10.21 and Cannabis use disorder, mild, abuse F12.10 [facility] [address] [facility] [id number] [address] [place] [address] 12 Dec, 2017 Severe episode of recurrent major depressive disorder, without psychotic features F33.2 [place] [address] [facility] [id number] [address] [place] [address] 18 Nov, 2017 [facility] [address] [facility] [id number] [address] [place] [address] 08 Nov, 2017 Atherosclerotic heart 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 ; Hypercholesterolemia with hypertriglyceridemia E78.2 ; Depression F32.9 and Cigarette nicotine dependence without complication F17.210 [facility] [address] [facility] [id number] [address] [place] [address] Oct, [facility] [address] [id number] [address] [place] [address] Jul, [facility] [address] [facility] [id number] [address] [place] [address] Jun, [facility] [address] [facility] [id number] [address] [place] [address] Apr, Pain in thoracic spine M54.6 and Lumbago with sciatica, unspecified side M54.40 [facility] [address] [facility] [id number] [address] [place] [address] March, [place] [address] [place] [id number] [address] [place] [address] March, Depression F32.[address] [address] March, Anxiety F41.9 ; Depression F 32.9 ; Atherosclerotic heart disease of [place] coronary 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 ; Hypercholesterolemia with hypertriglyceridemia E78.2 ; Right wrist tendonitis M77.8 and Environmental allergies Z91.09 [facility] [address] [id number] [place] [id number] Dec, [address] [address] Nov, Iron deficiency anemia, unsp ecified iron deficiency anemia type D50.9 ; Anxiety F41.9 ; Dysthymia (or depressive neurosis) F34.1 and Hypercholesterolemia with hypertriglyceridemia E78.[address] [address] 14 Oct, [address] [address] Oct, [address] [address] Oct, Dysthymia (or depressive sherice rosis) F34.1 ; Atherosclerotic heart disease of [place] coronary 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 ; Coronary atherosclerosis due to lipid rich plaque I25.83 ; Hypercholesterolemia with hypertriglyceridemia E78.2 ; Iron deficiency anemia, unspecified iron deficiency anemia type D50.9 ; Hospital discharge follow-up Z09 ; History of PID Z87.42 ; Environmental allergies Z91.09 and Dysuria R30.[address] [address] Sep, [address] [address] Sep, [address] [address] Aug, Dysthymia F34.1 and Anxiety F41.9 [place] [address] [address] March, Coronary artery disease invo lving [place] coronary artery, angina presence unspecified, unspecified whether [place] or transplanted heart I25.10 ; Bipolar 1 disorder, depressed F31.9 ; Anxiety F41.9 and Dysthymia F34.1 [place] [address] [address] 04 Feb, 2016 Depression F32.9 and Stomach pain R10.9 [place] [address] [address] Jan, Hyperlipidemia 272.4 [place] [address] [address] 17 Dec, 2015 [place] [address] [address] Dec, Major depressive disorder, r ecurrent episode, unspecified 296.30 ; Anxiety F41.9 ; Grief F43.20 and Dysthymia F34.1 [place] [address] [address] Dec, Anxiety F41.9 and Grief F43. 20 [place] [address] [address] Oct, Insomnia, unspecified G47.00 and Anxiety F41.9 [place] [address] [address] Oct, Dysthymia F34.1 ; Right shou lder pain M25.511 ; Sciatica, right M54.31 and Iron deficiency anemia, unspecified iron deficiency anemia type D50.9 [place] [address] [address] Sep, [place] [address] [address] Sep, Grief F43.20 [facility] [address] [address] Sep, [facility] [address] [address] Sep, [facility] [address] [address] Sep, Hyperlipidemia E78.5 ; CAD ( coronary artery disease) I25.10 and HTN (hypertension) I10 [facility] [address] [address] Aug, Allergic rhinitis, unspecifi ed allergic rhinitis type J30.9 [place] [address] [address] Aug, Left-sided low back pain wit h right-sided sciatica M54.41 and Hyperlipidemia, unspecified hyperlipidemia E78.5 [facility] [address] [address] Aug, Neck pain M54.2 and Low back pain M54.5 [facility] [address] [address] Jun, [facility] [address] [address] Jun, [facility] [address] [address] Jun, CAD (coronary artery disease ) 414.00 ; Hyperlipidemia 272.4 and Anemia 285.9 [facility] [address] [address] Feb, [facility] [address] [address] Feb, [facility] [address] [address] Jan, [facility] [address] [id number] [address] [place] [address], [place] [address] Jan, [facility] [address] [id number] [address] [place] [address], [place] [address] Jan, [facility] [address] [id number] [address] [place] [address], [place] [address] Jan, [facility] [address] [id number] [address] [place] [address], [place] [address] Dec, 2014 [facility] [address] [id number] [address] [place] [address], [place] [address] Dec, 2014 [facility] [address] [id number] [address] [place] [address], [place] [address] Dec, 2014 [facility] [address] [id number] [address] [place] [address], [place] [address] Dec, 2014 [facility] [address] [id number] [address] [place] [address], [place] [address] Dec, 2014 [facility] [address] [id number] [address] [place] [address], [place] [address] Dec, 2014 [facility] [address] [id number] [address] [place] [address], [place] [address] Dec, 2014 [facility] [address] [id number] [address] [place] [address], [place] [address] Dec, 2014 [facility] [address] [id number] [address] [place] [address], [place] [address] 12 Dec, 2014 [facility] [address] [id number] [address] [place] [address], [place] [address] Dec, 2014 [facility] [address] [id number] [address] [place] [address], [place] [address] 05 Dec, 2014 [facility] [address] [id number] [address] [place] [address], [place] [address] 05 Fe2014 [facility] [address] [id number] [address] [place] [address], [place] [address] Nov, [facility] [address] [id number] [address] [place] [address], [place] [address] Nov, [facility] [address] [id number] [address] [place] [address], [place] [address] Nov, [facility] [address] [id number] [address] [place] [address], [place] [address] Nov, [facility] [address] [id number] [address] [place] [address], [place] [address] Oct, [facility] [address] [id number] [address] [place] [address], [place] [address] Oct, [facility] [address] [id number] [address] [place] [address], [place] [address] Sep, [facility] [address] [id number] [address] [place] [address], [place] [address] Sep, [facility] [address] [id number] [address] [place] [address], [place] [address] Aug, [facility] [address] [id number] [address] [place] [address], [place] [address] 03 Aug, 2014 [facility] [address] [id number] [address] [place] [address], [place] [address] 30 Jul, 2014 [facility] [address] [id number] [address] [place] [address], [place] [address] 30 Jul, 2013 [facility] [address] [id number] [address] [place] [address], [place] [address] 16 Jul, 2014 [facility] [address] [id number] [address] [place] [address], [place] [address] 16 Jul, 2013 [facility] [address] [id number] [address] [place] [address], [place] [address] 15 Jul, 2014 [facility] [address] [id number] [address] [place] [address], [place] [address] Jul, [facility] [address] [id number] [facility] [place] [address] 12 Jul, 2014 [facility] [address] [id number] [address] [place] [address], [place] [address] Jul, [facility] [address] [id number] [address] [place] [address], [place] [address] Jul, [facility] [address] [id number] [address] [place] [address], [place] [address] Jul, [facility] [address] [id number] [address] [place] [address], [place] [address] Jul, [facility] [address] [id number] [address] [place] [address], [place] [address] Jul, [facility] [address] [id number] [address] [place] [address], [place] [address] Jul, [facility] [address] [id number] [address] [place] [address], [place] [address] Jun, [facility] [address] [id number] [address] [place] [address], [place] [address] Jun, [facility] [address] [id number] [address] [place] [address], [place] [address] Jun, [facility] [address] [id number] [address] [place] [address], [place] [address] Jun, [facility] [address] [id number] [address] [place] [address], [place] [address] Jun, [facility] [address] [id number] [address] [place] [address], [place] [address] Jun, [facility] [address] [id number] [address] [place] [address], [place] [address] Jun, [facility] [address] [id number] [address] [place] [address], [place] [address] Jun, [facility] [address] [id number] [facility] [place] [address] May, [facility] [address] [id number] [address] [place] [address], [place] [address] May, [facility] [address] [id number] [address] [place] [address], [place] [address] Apr, [facility] [address] [id number] [address] [place] [address], [place] [address] Apr, [facility] [address] [id number] [address] [place] [address], [place] [address] Apr, [facility] [address] [id number] [address] [place] [address], [place] [address] Apr, [facility] [address] [id number] [address] [place] [address], [place] [address] March, [facility] [address] [id number] [address] [place] [address], [place] [address] March, [facility] [address] [id number] [address] [place] [address], [place] [address] March, [facility] [address] [id number] [address] [place] [address], [place] [address] March, [facility] [address] [id number] [address] [place] [address], [place] [address] March, [facility] [address] [id number] [address] [place] [address], [place] [address] March, [facility] [address] [id number] [address] [place] [address], [place] [address] March, [facility] [address] [id number] [address] [place] [address], [place] [address] March, [facility] [address] [id number] [address] [place] [address], [place] [address] March, [facility] [address] [id number] [address] [place] [address], [place] [address] March, [facility] [address] [id number] [address] [place] [address], [place] [address] March, [facility] [address] [id number] [address] [place] [address], [place] [address] Nov, [facility] [address] [id number] [address] [place] [address], [place] [address] Nov, [facility] [address] [id number] [address] [place] [address], [place] [address] Nov, [facility] [address] [id number] [address] [place] [address], [place] [address] Oct, [facility] [address] [id number] [address] [place] [address], [place] [address] Oct, [facility] [address] [id number] [address] [place] [address], [place] [address] Aug, [facility] [address] [id number] [address] [place] [address] Aug, [facility] [place] [address] [id number] [place] [id number] Jun, [facility] [place] [address] [id number] [place] [id number] Apr, [facility] [address] [id number] [address] [place] [address] Apr, [facility] [address] [id number] [address] [place] [address], [place] [address] Apr, [facility] [place] [address] [id number] [place] [id number] March, [facility] [place] [address] [id number] [place] [id number] Feb, [facility] [place] [address] [id number] [place] [id number] Jan, [facility] [address] [id number] [address] [place] [address], [place] [address] Jan, [facility] [address] [id number] [address] [place] [address], [place] [address] Jan, [facility] [address] [id number] [address] [place] [address], [place] [address] Jan, [facility] [place] [address] [id number] [place] [id number] Dec, [facility] [place] [address] [id number] [place] [id number] Dec, [facility] [address] [id number] [address] [place] [address], [place] [address] Dec, [facility] [address] [facility] [id number] [address] [place] [address], [place] [address] Dec, [facility] [address] [facility] [id number] [address] [place] [address], [place] [address] Dec, [facility] [address] [facility] [id number] [address] [place] [address], [place] [address] Nov, [facility] [address] [id number] [address] [place] [address] Nov, [facility] [place] [address] [id number] [place] [id number] Nov, [facility] [address] [facility] [id number] [address] [place] [address] Nov, [facility] [place] [address] [id number] [place] [id number] Nov, [facility] [place] [address] [id number] [place] [id number] Nov, [facility] [place] [address] [id number] [place] [id number] Oct, [facility] [place] [address] [id number] [place] [id number] Oct, [facility] [address] [id number] [address] [place] [address] Oct, [facility] [address] [id number] [address] [place] [address] Oct, [facility] [address] [facility] [id number] [address] [place] [address] Oct, [facility] [address] [facility] [id number] [address] [place] [address] Sep, [facility] [address] [facility] [id number] [address] [place] [address] Sep, [facility] [address] [id number] [place] [id number] Sep, [facility] [place] [address] [id number] [place] [id number] Sep, [facility] [place] [address] [id number] [place] [id number] Sep, [facility] [address] [facility] [id number] [address] [place] [address] Sep, [facility] [address] [facility] [id number] [address] [place] [address] Aug, [facility] [address] [id number] [place] [id number] Aug, [facility] [address] [facility] [id number] [address] [place] [address] Aug, [facility] [place] [address] [id number] [place] [id number] Jul, [facility] [address] [id number] [place] [id number] Jul, [facility] [place] [address] [id number] [place] [id number] Jun, [facility] [place] [address] [id number] [place] [id number] May, [facility] [place] [address] [id number] [place] [id number] Feb, [facility] [place] [address] [id number] [place] [id number] Feb, [facility] [place] [address] [id number] [place] [id number] Feb, [facility] [place] [address] [id number] [place] [id number] Dec, [facility] [place] [address] [id number] [place] [id number] Dec, [facility] [address] [id number] [address] [place] [id number] Oct, [facility] [address] [id number] [address] [place] [id number] Sep, [facility] [address] [id number] [address] [place] [id number] Sep, [facility] [address] [id number] [address] [place] [id number] Sep, [facility] [address] [id number] [address] [place] [phone] Sep, [facility] [address] [id number] [address] [place] [id number] March, [facility] [address] [id number] [address] [place] [id number] Sep, [facility] [address] [facility] [id number] [address] [place] [id number] Jul, [facility] [address] [id number] [address] [place] [id number] May, [facility] [address] [id number] [address] [place] [id number] Jan, [facility] [address] [id number] [address] [place] [id number] Sep, [facility] [address] [facility] [id number] [address] [place] [id number] Aug, IMMUNIZATIONS No Known Immunizations SOCIAL HISTORY Never Assessed REASON FOR VISIT PLAN OF CARE VITAL SIGNS Height 60 in 2014-11-01 Weight 116.7 lbs 2014-11-01 Temperature 98.7 degrees Fahrenheit 2014-11-01 Heart Rate 88 bpm 2014-11-01 Respiratory Rate 18 2014-11-01 Blood pressure systolic 142 mmHg 2014-11-01 Blood pressure diastolic 82 mmHg 2014-11-01 MEDICATIONS No Known Medications RESULTS No Results [...]
--- OUTSIDE RECORDS SUMMARY | 2020-05-31 11:44 | XMS REPORT ---
Author Author Jeane WOLFF Organization [facility] Address [address] [place] [address] Care Team Providers Care Market Research Interviewer Name Role Phone NIKA WOLFF Unavailable PROBLEMS Type Condition ICD9-CM Code PEX09-TD Code Onset Dates Condition S tatus SNOMED Code Problem Depression F32.9 Active 83884339 Problem Anxiety F41.9 Active 74076975 Problem Environmental allergies Z91.09 Active 437316251 Problem Atherosclerotic heart 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 Active 500963035 Problem Lumbago with sciatica, unspecified side M54.40 Active 061274814 Problem Chronic pain syndrome G89.4 Active 166584897 Problem Hypercholesterolemia with hypertriglyceridemia E78 .2 Active 242387625 Problem Major depressive disorder, recurrent sev ere without psychotic features F33.2 Active 11770734 Problem Dysthymia (or depressive neurosis) F34.1 Active 23835340 Problem Cigarette nicotine dependence without complication F17.210 Active 90176641 Problem Alcohol use disorder, moderate, in sustained remission F10.21 Active 80442018 Problem Cannabis use disorder, mild, abuse F12.10 Active 50334687 Problem Elevated blood pressure I10 Active 89486316 ALLERGIES No Information ENCOUNTERS Encounter Location Date Diagnosis [facility] [address] [facility] [id number] [address] [place] [address] Dec, Major depressive disorder, r ecurrent severe without psychotic features F33.2 ; Chronic pain syndrome G89.4 and Encounter for immunization Z23 [facility] [address] [id number] [place] [id number] Aug, Elevated blood pressure I10 [facility] [address] [facility] [id number] [address] [place] [address] May, Hypercholesterolemia with hy pertriglyceridemia E78.2 and Atherosclerotic heart disease of [place] coronary 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 [facility] [address] [facility] [id number] [address] [place] [address] 11 Mar, 2018 Lumbago with sciatica, unspe cified side M54.40 ; Environmental allergies Z91.09 ; Hypercholesterolemia with hypertriglyceridemia E78.2 and Atherosclerotic heart disease of [place] coronary 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 [facility] [address] [facility] [id number] [address] [place] [address] 14 Dec, 2017 Severe episode of recurrent major depressive disorder, without psychotic features F33.2 ; Alcohol use disorder, moderate, in sustained remission F10.21 and Cannabis use disorder, mild, abuse F12.10 [facility] [address] [facility] [id number] [address] [place] [address] 12 Dec, 2017 Severe episode of recurrent major depressive disorder, without psychotic features F33.2 [place] [address] [facility] [id number] [address] [place] [address] 18 Nov, 2017 [facility] [address] [facility] [id number] [address] [place] [address] 08 Nov, 2017 Atherosclerotic heart 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 ; Hypercholesterolemia with hypertriglyceridemia E78.2 ; Depression F32.9 and Cigarette nicotine dependence without complication F17.210 [facility] [address] [facility] [id number] [address] [place] [address] Oct, [facility] [address] [id number] [address] [place] [address] Jul, [facility] [address] [facility] [id number] [address] [place] [address] Jun, [facility] [address] [facility] [id number] [address] [place] [address] Apr, Pain in thoracic spine M54.6 and Lumbago with sciatica, unspecified side M54.40 [facility] [address] [facility] [id number] [address] [place] [address] March, [place] [address] [place] [id number] [address] [place] [address] March, Depression F32.[address] [address] March, Anxiety F41.9 ; Depression F 32.9 ; Atherosclerotic heart disease of [place] coronary 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 ; Hypercholesterolemia with hypertriglyceridemia E78.2 ; Right wrist tendonitis M77.8 and Environmental allergies Z91.09 [facility] [address] [id number] [place] [id number] Dec, [address] [address] Nov, Iron deficiency anemia, unsp ecified iron deficiency anemia type D50.9 ; Anxiety F41.9 ; Dysthymia (or depressive neurosis) F34.1 and Hypercholesterolemia with hypertriglyceridemia E78.[address] [address] 14 Oct, [address] [address] Oct, [address] [address] Oct, Dysthymia (or depressive sherice rosis) F34.1 ; Atherosclerotic heart disease of [place] coronary 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 ; Coronary atherosclerosis due to lipid rich plaque I25.83 ; Hypercholesterolemia with hypertriglyceridemia E78.2 ; Iron deficiency anemia, unspecified iron deficiency anemia type D50.9 ; Hospital discharge follow-up Z09 ; History of PID Z87.42 ; Environmental allergies Z91.09 and Dysuria R30.[address] [address] Sep, [address] [address] Sep, [address] [address] Aug, Dysthymia F34.1 and Anxiety F41.9 [place] [address] [address] March, Coronary artery disease invo lving [place] coronary artery, angina presence unspecified, unspecified whether [place] or transplanted heart I25.10 ; Bipolar 1 disorder, depressed F31.9 ; Anxiety F41.9 and Dysthymia F34.1 [place] [address] [address] 04 Feb, 2016 Depression F32.9 and Stomach pain R10.9 [place] [address] [address] Jan, Hyperlipidemia 272.4 [place] [address] [address] 17 Dec, 2015 [place] [address] [address] Dec, Major depressive disorder, r ecurrent episode, unspecified 296.30 ; Anxiety F41.9 ; Grief F43.20 and Dysthymia F34.1 [place] [address] [address] Dec, Anxiety F41.9 and Grief F43. 20 [place] [address] [address] Oct, Insomnia, unspecified G47.00 and Anxiety F41.9 [place] [address] [address] Oct, Dysthymia F34.1 ; Right shou lder pain M25.511 ; Sciatica, right M54.31 and Iron deficiency anemia, unspecified iron deficiency anemia type D50.9 [place] [address] [address] Sep, [place] [address] [address] Sep, Grief F43.20 [facility] [address] [address] Sep, [facility] [address] [address] Sep, [facility] [address] [address] Sep, Hyperlipidemia E78.5 ; CAD ( coronary artery disease) I25.10 and HTN (hypertension) I10 [facility] [address] [address] Aug, Allergic rhinitis, unspecifi ed allergic rhinitis type J30.9 [place] [address] [address] Aug, Left-sided low back pain wit h right-sided sciatica M54.41 and Hyperlipidemia, unspecified hyperlipidemia E78.5 [facility] [address] [address] Aug, Neck pain M54.2 and Low back pain M54.5 [facility] [address] [address] Jun, [facility] [address] [address] Jun, [facility] [address] [address] Jun, CAD (coronary artery disease ) 414.00 ; Hyperlipidemia 272.4 and Anemia 285.9 [facility] [address] [address] Feb, [facility] [address] [address] Feb, [facility] [address] [address] Jan, [facility] [address] [id number] [address] [place] [address], [place] [address] Jan, [facility] [address] [id number] [address] [place] [address], [place] [address] Jan, [facility] [address] [id number] [address] [place] [address], [place] [address] Jan, [facility] [address] [id number] [address] [place] [address], [place] [address] Dec, 2014 [facility] [address] [id number] [address] [place] [address], [place] [address] Dec, 2014 [facility] [address] [id number] [address] [place] [address], [place] [address] Dec, 2014 [facility] [address] [id number] [address] [place] [address], [place] [address] Dec, 2014 [facility] [address] [id number] [address] [place] [address], [place] [address] Dec, 2014 [facility] [address] [id number] [address] [place] [address], [place] [address] Dec, 2014 [facility] [address] [id number] [address] [place] [address], [place] [address] Dec, 2014 [facility] [address] [id number] [address] [place] [address], [place] [address] Dec, 2014 [facility] [address] [id number] [address] [place] [address], [place] [address] 12 Dec, 2014 [facility] [address] [id number] [address] [place] [address], [place] [address] Dec, 2014 [facility] [address] [id number] [address] [place] [address], [place] [address] 05 Dec, 2014 [facility] [address] [id number] [address] [place] [address], [place] [address] 05 Fe2014 [facility] [address] [id number] [address] [place] [address], [place] [address] Nov, [facility] [address] [id number] [address] [place] [address], [place] [address] Nov, [facility] [address] [id number] [address] [place] [address], [place] [address] Nov, [facility] [address] [id number] [address] [place] [address], [place] [address] Nov, [facility] [address] [id number] [address] [place] [address], [place] [address] Oct, [facility] [address] [id number] [address] [place] [address], [place] [address] Oct, [facility] [address] [id number] [address] [place] [address], [place] [address] Sep, [facility] [address] [id number] [address] [place] [address], [place] [address] Sep, [facility] [address] [id number] [address] [place] [address], [place] [address] Aug, [facility] [address] [id number] [address] [place] [address], [place] [address] 03 Aug, 2014 [facility] [address] [id number] [address] [place] [address], [place] [address] 30 Jul, 2014 [facility] [address] [id number] [address] [place] [address], [place] [address] 30 Jul, 2013 [facility] [address] [id number] [address] [place] [address], [place] [address] 16 Jul, 2014 [facility] [address] [id number] [address] [place] [address], [place] [address] 16 Jul, 2013 [facility] [address] [id number] [address] [place] [address], [place] [address] 15 Jul, 2014 [facility] [address] [id number] [address] [place] [address], [place] [address] Jul, [facility] [address] [id number] [facility] [place] [address] 12 Jul, 2014 [facility] [address] [id number] [address] [place] [address], [place] [address] Jul, [facility] [address] [id number] [address] [place] [address], [place] [address] Jul, [facility] [address] [id number] [address] [place] [address], [place] [address] Jul, [facility] [address] [id number] [address] [place] [address], [place] [address] Jul, [facility] [address] [id number] [address] [place] [address], [place] [address] Jul, [facility] [address] [id number] [address] [place] [address], [place] [address] Jul, [facility] [address] [id number] [address] [place] [address], [place] [address] Jun, [facility] [address] [id number] [address] [place] [address], [place] [address] Jun, [facility] [address] [id number] [address] [place] [address], [place] [address] Jun, [facility] [address] [id number] [address] [place] [address], [place] [address] Jun, [facility] [address] [id number] [address] [place] [address], [place] [address] Jun, [facility] [address] [id number] [address] [place] [address], [place] [address] Jun, [facility] [address] [id number] [address] [place] [address], [place] [address] Jun, [facility] [address] [id number] [address] [place] [address], [place] [address] Jun, [facility] [address] [id number] [facility] [place] [address] May, [facility] [address] [id number] [address] [place] [address], [place] [address] May, [facility] [address] [id number] [address] [place] [address], [place] [address] Apr, [facility] [address] [id number] [address] [place] [address], [place] [address] Apr, [facility] [address] [id number] [address] [place] [address], [place] [address] Apr, [facility] [address] [id number] [address] [place] [address], [place] [address] Apr, [facility] [address] [id number] [address] [place] [address], [place] [address] March, [facility] [address] [id number] [address] [place] [address], [place] [address] March, [facility] [address] [id number] [address] [place] [address], [place] [address] March, [facility] [address] [id number] [address] [place] [address], [place] [address] March, [facility] [address] [id number] [address] [place] [address], [place] [address] March, [facility] [address] [id number] [address] [place] [address], [place] [address] March, [facility] [address] [id number] [address] [place] [address], [place] [address] March, [facility] [address] [id number] [address] [place] [address], [place] [address] March, [facility] [address] [id number] [address] [place] [address], [place] [address] March, [facility] [address] [id number] [address] [place] [address], [place] [address] March, [facility] [address] [id number] [address] [place] [address], [place] [address] March, [facility] [address] [id number] [address] [place] [address], [place] [address] Nov, [facility] [address] [id number] [address] [place] [address], [place] [address] Nov, [facility] [address] [id number] [address] [place] [address], [place] [address] Nov, [facility] [address] [id number] [address] [place] [address], [place] [address] Oct, [facility] [address] [id number] [address] [place] [address], [place] [address] Oct, [facility] [address] [id number] [address] [place] [address], [place] [address] Aug, [facility] [address] [id number] [address] [place] [address] Aug, [facility] [address] [id number] [place] [id number] Jun, [facility] [address] [id number] [place] [id number] Apr, [facility] [address] [id number] [address] [place] [address] Apr, [facility] [address] [id number] [address] [place] [address], [place] [address] Apr, [facility] [place] [address] [id number] [place] [id number] March, [facility] [place] [address] [id number] [place] [id number] Feb, [facility] [place] [address] [id number] [place] [id number] Jan, [facility] [address] [id number] [address] [place] [address], [place] [address] Jan, [facility] [address] [id number] [address] [place] [address], [place] [address] Jan, [facility] [address] [id number] [address] [place] [address], [place] [address] Jan, [facility] [place] [address] [id number] [place] [id number] Dec, [facility] [place] [address] [id number] [place] [id number] Dec, [facility] [address] [id number] [address] [place] [address], [place] [address] Dec, [facility] [address] [facility] [id number] [address] [place] [address], [place] [address] Dec, [facility] [address] [facility] [id number] [address] [place] [address], [place] [address] Dec, [facility] [address] [facility] [id number] [address] [place] [address], [place] [address] Nov, [facility] [address] [id number] [address] [place] [address] Nov, [facility] [place] [address] [id number] [place] [id number] Nov, [facility] [address] [facility] [id number] [address] [place] [address] Nov, [facility] [place] [address] [id number] [place] [id number] Nov, [facility] [place] [address] [id number] [place] [id number] Nov, [facility] [place] [address] [id number] [place] [id number] Oct, [facility] [place] [address] [id number] [place] [id number] Oct, [facility] [address] [id number] [address] [place] [address] Oct, [facility] [address] [id number] [address] [place] [address] Oct, [facility] [address] [facility] [id number] [address] [place] [address] Oct, [facility] [address] [facility] [id number] [address] [place] [address] Sep, [facility] [address] [facility] [id number] [address] [place] [address] Sep, [facility] [address] [id number] [place] [id number] Sep, [facility] [address] [id number] [place] [id number] Sep, [facility] [address] [id number] [place] [id number] Sep, [facility] [address] [facility] [id number] [address] [place] [address] Sep, [facility] [address] [facility] [id number] [address] [place] [address] Aug, [facility] [place] [address] [id number] [place] [id number] Aug, [facility] [address] [facility] [id number] [address] [place] [address] Aug, [facility] [place] [address] [id number] [place] [id number] Jul, [facility] [address] [id number] [place] [id number] Jul, [facility] [address] [id number] [place] [id number] Jun, [facility] [place] [address] [id number] [place] [id number] May, [facility] [place] [address] [id number] [place] [id number] Feb, [facility] [place] [address] [id number] [place] [id number] Feb, [facility] [place] [address] [id number] [place] [id number] Feb, [facility] [address] [id number] [place] [id number] Dec, [facility] [address] [id number] [place] [id number] Dec, [facility] [address] [id number] [address] [place] [address] Oct, [facility] [address] [id number] [address] [place] [address] Sep, [facility] [address] [id number] [address] [place] [address] Sep, [facility] [address] [id number] [address] [place] [address] Sep, [facility] [address] [id number] [address] [place] [address] Sep, [facility] [address] [id number] [address] [place] [address] March, [facility] [address] [id number] [address] [place] [address] Sep, [facility] [address] [facility] [id number] [address] [place] [address] Jul, [facility] [address] [id number] [address] [place] [address] May, [facility] [address] [id number] [address] [place] [address] Jan, [facility] [address] [id number] [address] [place] [address] Sep, [facility] [address] [facility] [id number] [address] [place] [address] Aug, IMMUNIZATIONS No Known Immunizations SOCIAL HISTORY [...]
--- OUTSIDE RECORDS SUMMARY | 2020-05-31 11:44 | XMS REPORT ---
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 Name Role Phone CHANELLE Narvaez Unavailable PROBLEMS Type Condition ICD9-CM Code DVO89-UM Code Onset Dates Condition S tatus SNOMED Code Problem Depression F32.9 Active 40157520 Problem Anxiety F41.9 Active 37605938 Problem Environmental allergies Z91.09 Active 486738338 Problem 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 Active 502865202 Problem Lumbago with sciatica, unspecified side M54.40 Active 359810876 Problem Chronic pain syndrome G89.4 Active 044787394 Problem Hypercholesterolemia with hypertriglyceridemia E78 .2 Active 743193933 Problem Major depressive disorder, recurrent sev ere without psychotic features F33.2 Active 42392146 Problem Dysthymia (or depressive neurosis) F34.1 Active 11240967 Problem Cigarette nicotine dependence without complication F17.210 Active 03582232 Problem Alcohol use disorder, moderate, in sustained remission F10.21 Active 95831050 Problem Cannabis use disorder, mild, abuse F12.10 Active 64954110 Problem Elevated blood pressure I10 Active 61294866 ALLERGIES No Information ENCOUNTERS Encounter Location Date Diagnosis [facility] [address] [facility] [id number] [address] [place] [id number] Dec, Major depressive disorder, r ecurrent severe without psychotic features F33.2 ; Chronic pain syndrome G89.4 and Encounter for immunization Z23 [facility] [address] [id number] [place] [id number] Aug, Elevated blood pressure I10 [facility] [address] [facility] [id number] [address] [place] [address] May, Hypercholesterolemia with hy pertriglyceridemia E78.2 and Atherosclerotic heart disease of [place] coronary 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 [facility] [address] [facility] [id number] [address] [place] [id number] 11 Mar, 2018 Lumbago with sciatica, unspe cified side M54.40 ; Environmental allergies Z91.09 ; Hypercholesterolemia with hypertriglyceridemia E78.2 and Atherosclerotic heart disease of [place] coronary 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 [facility] [address] [facility] [id number] [address] [place] [id number] 14 Dec, 2017 Severe episode of recurrent major depressive disorder, without psychotic features F33.2 ; Alcohol use disorder, moderate, in sustained remission F10.21 and Cannabis use disorder, mild, abuse F12.10 [facility] [address] [facility] [id number] [address] [place] [id number] 12 Dec, 2017 Severe episode of recurrent major depressive disorder, without psychotic features F33.2 [place] [address] [facility] [id number] [address] [place] [id number] 18 Nov, 2017 [facility] [address] [facility] [id number] [address] [place] [phone] 08 Nov, 2017 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 ; Hypercholesterolemia with hypertriglyceridemia E78.2 ; Depression F32.9 and Cigarette nicotine dependence without complication F17.210 [facility] [address] [facility] [id number] [address] [place] [phone] Oct, [facility] [address] [id number] [address] [place] [id number] Jul, [facility] [address] [facility] [id number] [address] [place] [phone] Jun, [facility] [address] [facility] [id number] [address] [place] [phone] Apr, Pain in thoracic spine M54.6 and Lumbago with sciatica, unspecified side M54.40 [facility] [address] [facility] [id number] [address] [place] [phone] March, [place] [address] [address] [place] [id number] [address] [place] [address] March, Depression F32.[address] [address] March, Anxiety F41.9 ; Depression F 32.9 ; Atherosclerotic heart disease of k[place] coronary 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 ; Hypercholesterolemia with hypertriglyceridemia E78.2 ; Right wrist tendonitis M77.8 and Environmental allergies Z91.09 [facility] [address] [id number] [place] [id number] Dec, [address] [address] Nov, Iron deficiency anemia, unsp ecified iron deficiency anemia type D50.9 ; Anxiety F41.9 ; Dysthymia (or depressive neurosis) F34.1 and Hypercholesterolemia with hypertriglyceridemia E78.[address] [address] 14 Oct, [address] [address] Oct, [address] [address] Oct, Dysthymia (or depressive sherice rosis) F34.1 ; Atherosclerotic heart disease of k[place] coronary 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 ; Coronary atherosclerosis due to lipid rich plaque I25.83 ; Hypercholesterolemia with hypertriglyceridemia E78.2 ; Iron deficiency anemia, unspecified iron deficiency anemia type D50.9 ; Hospital discharge follow-up Z09 ; History of PID Z87.42 ; Environmental allergies Z91.09 and Dysuria R30.[address] [address] Sep, [address] [address] Sep, [address] [address] Aug, Dysthymia F34.1 and Anxiety F41.9 [place] [address] [address] March, Coronary artery disease invo lving kake coronary artery, angina presence unspecified, unspecified whether kake or transplanted heart I25.10 ; Bipolar 1 disorder, depressed F31.9 ; Anxiety F41.9 and Dysthymia F34.1 [place] [address] [address] 04 Feb, 2016 Depression F32.9 and Stomach pain R10.9 [place] [address] [address] Jan, Hyperlipidemia 272.4 [place] [address] [address] 17 Dec, 2015 [place] [address] [address] Dec, Major depressive disorder, r ecurrent episode, unspecified 296.30 ; Anxiety F41.9 ; Grief F43.20 and Dysthymia F34.1 [place] [address] [address] Dec, Anxiety F41.9 and Grief F43. 20 [place] [address] [address] Oct, Insomnia, unspecified G47.00 and Anxiety F41.9 [place] [address] [address] Oct, Dysthymia F34.1 ; Right shou lder pain M25.511 ; Sciatica, right M54.31 and Iron deficiency anemia, unspecified iron deficiency anemia type D50.9 [place] [address] [address] Sep, [place] [address] [address] Sep, Grief F43.20 [facility] [address] [address] Sep, [facility] [address] [address] Sep, [facility] [address] [address] Sep, Hyperlipidemia E78.5 ; CAD ( coronary artery disease) I25.10 and HTN (hypertension) I10 [facility] [address] [address] Aug, Allergic rhinitis, unspecifi ed allergic rhinitis type J30.9 [place] [address] [address] Aug, Left-sided low back pain wit h right-sided sciatica M54.41 and Hyperlipidemia, unspecified hyperlipidemia E78.5 [facility] [address] [address] Aug, Neck pain M54.2 and Low back pain M54.5 [facility] [address] [address] Jun, [facility] [address] [address] Jun, [facility] [address] [address] Jun, CAD (coronary artery disease ) 414.00 ; Hyperlipidemia 272.4 and Anemia 285.9 [facility] [address] [address] Feb, [facility] [address] [address] Feb, [facility] [address] [address] Jan, [facility] [address] [id number] [address] [place] [address], [place] [address] Jan, [facility] [address] [id number] [address] [place] [address], [place] [address] Jan, [facility] [address] [id number] [address] [place] [address], [place] [address] Jan, [facility] [address] [id number] [address] [place] [address], [place] [address] Dec, 2014 [facility] [address] [id number] [address] [place] [address], [place] [address] Dec, 2014 [facility] [address] [id number] [address] [place] [address], [place] [address] Dec, 2014 [facility] [address] [id number] [address] [place] [address], [place] [address] Dec, 2014 [facility] [address] [id number] [address] [place] [address], [place] [address] Dec, 2014 [facility] [address] [id number] [address] [place] [address], [place] [address] Dec, 2014 [facility] [address] [id number] [address] [place] [address], [place] [address] Dec, 2014 [facility] [address] [id number] [address] [place] [address], [place] [address] Dec, 2014 [facility] [address] [id number] [address] [place] [address], [place] [address] 12 Dec, 2014 [facility] [address] [id number] [address] [place] [address], [place] [address] Dec, 2014 [facility] [address] [id number] [address] [place] [address], [place] [address] 05 Dec, 2014 [facility] [address] [id number] [address] [place] [address] [address] 05 Fe2014 [facility] [address] [id number] [address] [place] [address], [place] [address] Nov, [facility] [address] [id number] [address] [place] [address], [place] [address] Nov, [facility] [address] [id number] [address] [place] [address], [place] [address] Nov, [facility] [address] [id number] [address] [place] [address], [place] [address] Nov, [facility] [address] [id number] [address] [place] [address], [place] [address] Oct, [facility] [address] [id number] [address] [place] [address], [place] [address] Oct, [facility] [address] [id number] [address] [place] [address], [place] [address] Sep, [facility] [address] [id number] [address] [place] [address], [place] [address] Sep, [facility] [address] [id number] [address] [place] [address], [place] [address] Aug, [facility] [address] [id number] [address] [place] [address], [place] [address] 03 Aug, 2014 [facility] [address] [id number] [address] [place] [address], [place] [address] 30 Jul, 2014 [facility] [address] [id number] [address] [place] [address], [place] [address] 30 Jul, 2013 [facility] [address] [id number] [address] [place] [address], [place] [address] 16 Jul, 2014 [facility] [address] [id number] [address] [place] [address], [place] [address] 16 Jul, 2013 [facility] [address] [id number] [address] [place] [address], [place] [address] 15 Jul, 2014 [facility] [address] [id number] [address] [place] [address], [place] [address] Jul, [facility] [address] [id number] [facility] [address] 12 Jul, 2014 [facility] [address] [id number] [address] [place] [address], [place] [address] Jul, [facility] [address] [id number] [address] [place] [address], [place] [address] Jul, [facility] [address] [id number] [address] [place] [address], [place] [address] Jul, [facility] [address] [id number] [address] [place] [address], [place] [address] Jul, [facility] [address] [id number] [address] [place] [address], [place] [address] Jul, [facility] [address] [id number] [address] [place] [address], [place] [address] Jul, [facility] [address] [id number] [address] [place] [address], [place] [address] Jun, [facility] [address] [id number] [address] [place] [address], [place] [address] Jun, [facility] [address] [id number] [address] [place] [address], [place] [address] Jun, [facility] [address] [id number] [address] [place] [address], [place] [address] Jun, [facility] [address] [id number] [address] [place] [address], [place] [address] Jun, [facility] [address] [id number] [address] [place] [address], [place] [address] Jun, [facility] [address] [id number] [address] [place] [address], [place] [address] Jun, [facility] [address] [id number] [address] [place] [address], [place] [address] Jun, [facility] [address] [id number] [facility] [address] May, [facility] [address] [id number] [address] [place] [address], [place] [address] May, [facility] [address] [id number] [address] [place] [address], [place] [address] Apr, [facility] [address] [id number] [address] [place] [address], [place] [address] Apr, [facility] [address] [id number] [address] [place] [address], [place] [address] Apr, [facility] [address] [id number] [address] [place] [address], [place] [address] Apr, [facility] [address] [id number] [address] [place] [address], [place] [address] March, [facility] [address] [id number] [address] [place] [address], [place] [address] March, [facility] [address] [id number] [address] [place] [address], [place] [address] March, [facility] [address] [id number] [address] [place] [address], [place] [address] March, [facility] [address] [id number] [address] [place] [address], [place] [address] March, [facility] [address] [id number] [address] [place] [address], [place] [address] March, [facility] [address] [id number] [address] [place] [address], [place] [address] March, [facility] [address] [id number] [address] [place] [address], [place] [address] March, [facility] [address] [id number] [address] [place] [address], [place] [address] March, [facility] [address] [id number] [address] [place] [address], [place] [address] March, [facility] [address] [id number] [address] [place] [address], [place] [address] March, [facility] [address] [id number] [address] [place] [address], [place] [address] Nov, [facility] [address] [id number] [address] [place] [address], [place] [address] Nov, [facility] [address] [id number] [address] [place] [address], [place] [address] Nov, [facility] [address] [id number] [address] [place] [address], [place] [address] Oct, [facility] [address] [id number] [address] [place] [address], [place] [address] Oct, [facility] [address] [id number] [address] [place] [address], [place] [address] Aug, [facility] [address] [id number] [address] [place] [address] Aug, [facility] [place] [address] [id number] [place] [id number] Jun, [facility] [place] [address] [id number] [place] [id number] Apr, [facility] [address] [id number] [address] [place] [address] Apr, [facility] [address] [id number] [address] [place] [address], [place] [address] Apr, [facility] [place] [address] [id number] [place] [id number] March, [facility] [place] [address] [id number] [place] [id number] Feb, [facility] [place] [address] [id number] [place] [id number] Jan, [facility] [address] [id number] [address] [place] [address], [place] [address] Jan, [facility] [address] [id number] [address] [place] [address], [place] [address] Jan, [facility] [address] [id number] [address] [place] [address], [place] [address] Jan, [facility] [place] [address] [id number] [place] [id number] Dec, [facility] [place] [address] [id number] [place] [id number] Dec, [facility] [address] [id number] [address] [place] [address], [place] [address] Dec, [facility] [address] [facility] [id number] [address] [place] [address], [place] [address] Dec, [facility] [address] [facility] [id number] [address] [place] [address], [place] [address] Dec, [facility] [address] [facility] [id number] [address] [place] [address], [place] [address] Nov, [facility] [address] [id number] [address] [place] [address] Nov, [facility] [place] [address] [id number] [place] [id number] Nov, [facility] [address] [facility] [id number] [address] [place] [address] Nov, [facility] [place] [address] [id number] [place] [id number] Nov, [facility] [place] [address] [id number] [place] [id number] Nov, [facility] [place] [address] [id number] [place] [id number] Oct, [facility] [place] [address] [id number] [place] [id number] Oct, [facility] [address] [id number] [address] [place] [address] Oct, [facility] [address] [id number] [address] [place] [address] Oct, [facility] [address] [facility] [id number] [address] [place] [address] Oct, [facility] [address] [facility] [id number] [address] [place] [address] Sep, [facility] [address] [facility] [id number] [address] [place] [address] Sep, [facility] [place] [address] [id number] [place] [id number] Sep, [facility] [address] [id number] [place] [id number] Sep, [facility] [address] [id number] [place] [id number] Sep, [facility] [address] [facility] [id number] [address] [place] [address] Sep, [facility] [address] [facility] [id number] [address] [place] [address] Aug, [facility] [address] [id number] [place] [id number] Aug, [facility] [address] [facility] [id number] [address] [place] [address] Aug, [facility] [address] [id number] [place] [id number] Jul, [facility] [address] [id number] [place] [id number] Jul, [facility] [address] [id number] [place] [id number] Jun, [facility] [address] [id number] [place] [id number] May, [facility] [place] [address] [id number] [place] [id number] Feb, [facility] [place] [address] [id number] [place] [id number] Feb, [facility] [place] [address] [id number] [place] [id number] Feb, [facility] [place] [address] [id number] [place] [id number] Dec, [facility] [place] [address] [id number] [place] [id number] Dec, [facility] [address] [id number] [address] [place] [id number] Oct, [facility] [address] [id number] [address] [place] [id number] Sep, [facility] [address] [id number] [address] [place] [id number] Sep, [facility] [address] [id number] [address] [place] [id number] Sep, [facility] [address] [id number] [address] [place] [id number] Sep, [facility] [address] [id number] [address] [place] [id number] March, [facility] [address] [id number] [address] [place] [phone] Sep, [facility] [address] [facility] [id number] [address] [place] [id number] Jul, [facility] [address] [id number] [address] [place] [id number] May, [facility] [address] [id number] [address] [place] [id number] Jan, [facility] [address] [id number] [address] [place] [phone] Sep, [facility] [address] [facility] [id number] [address] [place] [id number] Aug, IMMUNIZATIONS No Known Immunizations SOCIAL HISTORY Never Assessed REASON FOR VISIT PLAN OF CARE VITAL SIGNS Height 60 in 2014-08-02 Weight 117.9 lbs 2014-08-02 Temperature 97.2 degrees Fahrenheit 2014-08-02 Blood pressure systolic 142 mmHg 2014-08-02 Blood pressure diastolic 76 mmHg 2014-08-02 MEDICATIONS No Known Medications RESULTS No Results PROCEDURES Procedure Date Ordered Result Body Site SCR PAP SMER;NEW PT OBTAIN PREP&CONVY-LAB Aug 02, 2014 CYTOPATH C/V AUTO FLUID REDO Aug 02, 2014 INSTRUCTIONS MEDICATIONS ADMINISTERED No Known Medications [...]
--- OUTSIDE RECORDS SUMMARY | 2020-05-31 11:44 | XMS REPORT ---
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 Active 961627896 Problem Lumbago with sciatica, unspecified side M54.40 Active 237560571 Problem Chronic pain syndrome G89.4 Active 721917132 Problem Hypercholesterolemia with hypertriglyceridemia E78 .2 Active 372123659 Problem Major depressive disorder, recurrent sev ere without psychotic features F33.2 Active 02409924 Problem Dysthymia (or depressive neurosis) F34.1 Active 31922350 Problem Cigarette nicotine dependence without complication F17.210 Active 21399591 Problem Alcohol use disorder, moderate, in sustained remission F10.21 Active 76003359 Problem Cannabis use disorder, mild, abuse F12.10 Active 10625537 Problem Elevated blood pressure I10 Active 54993189 ALLERGIES No Information ENCOUNTERS Encounter Location Date Diagnosis [facility] [address] [facility] [id number] [address] [place] [address] Dec, Major depressive disorder, r ecurrent severe without psychotic features F33.2 ; Chronic pain syndrome G89.4 and Encounter for immunization Z23 [facility] [address] [id number] [place] [id number] Aug, Elevated blood pressure I10 [facility] [address] [facility] [id number] [address] [place] [address] May, Hypercholesterolemia with hy pertriglyceridemia E78.2 and Atherosclerotic heart disease of galena coronary 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 [facility] [address] [facility] [id number] [address] [place] [address] 11 Mar, 2018 Lumbago with sciatica, unspe cified side M54.40 ; Environmental allergies Z91.09 ; Hypercholesterolemia with hypertriglyceridemia E78.2 and Atherosclerotic heart disease of galena coronary 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 [facility] [address] [facility] [id number] [address] [place] [address] 14 Dec, 2017 Severe episode of recurrent major depressive disorder, without psychotic features F33.2 ; Alcohol use disorder, moderate, in sustained remission F10.21 and Cannabis use disorder, mild, abuse F12.10 [facility] [address] [facility] [id number] [address] [place] [address] 12 Dec, 2017 Severe episode of recurrent major depressive disorder, without psychotic features F33.2 [place] [address] [facility] [id number] [address] [place] [address] 18 Nov, 2017 [facility] [address] [facility] [id number] [address] [place] [id number] 08 Nov, 2017 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 ; Hypercholesterolemia with hypertriglyceridemia E78.2 ; Depression F32.9 and Cigarette nicotine dependence without complication F17.210 [facility] [address] [facility] [id number] [address] [place] [address] Oct, [facility] [address] [id number] [address] [place] [address] Jul, [facility] [address] [facility] [id number] [address] [place] [address] Jun, [facility] [address] [facility] [id number] [address] [place] [address] Apr, Pain in thoracic spine M54.6 and Lumbago with sciatica, unspecified side M54.40 [facility] [address] [facility] [id number] [address] [place] [address] March, [place] [address] [address] [place] [id number] [address] [place] [address] March, Depression F32.[address] [address] March, Anxiety F41.9 ; Depression F 32.9 ; Atherosclerotic heart disease of galena coronary 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 ; Hypercholesterolemia with hypertriglyceridemia E78.2 ; Right wrist tendonitis M77.8 and Environmental allergies Z91.09 [facility] [address] [id number] [place] [id number] Dec, [address] [address] Nov, Iron deficiency anemia, unsp ecified iron deficiency anemia type D50.9 ; Anxiety F41.9 ; Dysthymia (or depressive neurosis) F34.1 and Hypercholesterolemia with hypertriglyceridemia E78.[address] [address] 14 Oct, [address] [address] Oct, [address] [address] Oct, Dysthymia (or depressive sherice rosis) F34.1 ; Atherosclerotic heart disease of galena coronary 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 ; Coronary atherosclerosis due to lipid rich plaque I25.83 ; Hypercholesterolemia with hypertriglyceridemia E78.2 ; Iron deficiency anemia, unspecified iron deficiency anemia type D50.9 ; Hospital discharge follow-up Z09 ; History of PID Z87.42 ; Environmental allergies Z91.09 and Dysuria R30.[address] [address] Sep, [address] [address] Sep, [address] [address] Aug, Dysthymia F34.1 and Anxiety F41.9 [place] [address] [address] March, Coronary artery disease invo lving galena coronary artery, angina presence unspecified, unspecified whether galena or transplanted heart I25.10 ; Bipolar 1 disorder, depressed F31.9 ; Anxiety F41.9 and Dysthymia F34.1 [place] [address] [address] 04 Feb, 2016 Depression F32.9 and Stomach pain R10.9 [place] [address] [address] Jan, Hyperlipidemia 272.4 [place] [address] [address] 17 Dec, 2015 [place] [address] [address] Dec, Major depressive disorder, r ecurrent episode, unspecified 296.30 ; Anxiety F41.9 ; Grief F43.20 and Dysthymia F34.1 [place] [address] [address] Dec, Anxiety F41.9 and Grief F43. 20 [place] [address] [address] Oct, Insomnia, unspecified G47.00 and Anxiety F41.9 [place] [address] [address] Oct, Dysthymia F34.1 ; Right shou lder pain M25.511 ; Sciatica, right M54.31 and Iron deficiency anemia, unspecified iron deficiency anemia type D50.9 [place] [address] [address] Sep, [place] [address] [address] Sep, Grief F43.20 [facility] [address] [address] Sep, [facility] [address] [address] Sep, [facility] [address] [address] Sep, Hyperlipidemia E78.5 ; CAD ( coronary artery disease) I25.10 and HTN (hypertension) I10 [facility] [address] [address] Aug, Allergic rhinitis, unspecifi ed allergic rhinitis type J30.9 [place] [address] [address] Aug, Left-sided low back pain wit h right-sided sciatica M54.41 and Hyperlipidemia, unspecified hyperlipidemia E78.5 [facility] [address] [address] Aug, Neck pain M54.2 and Low back pain M54.5 [facility] [address] [address] Jun, [facility] [address] [address] Jun, [facility] [address] [address] Jun, CAD (coronary artery disease ) 414.00 ; Hyperlipidemia 272.4 and Anemia 285.9 [facility] [address] [address] Feb, [facility] [address] [address] Feb, [facility] [address] [address] Jan, [facility] [address] [id number] [address] [place] [address], [place] [address] Jan, [facility] [address] [id number] [address] [place] [address], [place] [address] Jan, [facility] [address] [id number] [address] [place] [address], [place] [address] Jan, [facility] [address] [id number] [address] [place] [address], [place] [address] Dec, 2014 [facility] [address] [id number] [address] [place] [address], [place] [address] Dec, 2014 [facility] [address] [id number] [address] [place] [address], [place] [address] Dec, 2014 [facility] [address] [id number] [address] [place] [address], [place] [address] Dec, 2014 [facility] [address] [id number] [address] [place] [address], [place] [address] Dec, 2014 [facility] [address] [id number] [address] [place] [address], [place] [address] Dec, 2014 [facility] [address] [id number] [address] [place] [address], [place] [address] Dec, 2014 [facility] [address] [id number] [address] [place] [address], [place] [address] Dec, 2014 [facility] [address] [id number] [address] [place] [address], [place] [address] 12 Dec, 2014 [facility] [address] [id number] [address] [place] [address], [place] [address] Dec, 2014 [facility] [address] [id number] [address] [place] [address], [place] [address] 05 Dec, 2014 [facility] [address] [id number] [address] [place] [address], [place] [address] 05 Fe2014 [facility] [address] [id number] [address] [place] [address], [place] [address] Nov, [facility] [address] [id number] [address] [place] [address], [place] [address] Nov, [facility] [address] [id number] [address] [place] [address], [place] [address] Nov, [facility] [address] [id number] [address] [place] [address], [place] [address] Nov, [facility] [address] [id number] [address] [place] [address], [place] [address] Oct, [facility] [address] [id number] [address] [place] [address], [place] [address] Oct, [facility] [address] [id number] [address] [place] [address], [place] [address] Sep, [facility] [address] [id number] [address] [place] [address], [place] [address] Sep, [facility] [address] [id number] [address] [place] [address], [place] [address] Aug, [facility] [address] [id number] [address] [place] [address], [place] [address] 03 Aug, 2014 [facility] [address] [id number] [address] [place] [address], [place] [address] 30 Jul, 2014 [facility] [address] [id number] [address] [place] [address], [place] [address] 30 Jul, 2013 [facility] [address] [id number] [address] [place] [address], [place] [address] 16 Jul, 2014 [facility] [address] [id number] [address] [place] [address], [place] [address] 16 Jul, 2013 [facility] [address] [id number] [address] [place] [address], [place] [address] 15 Jul, 2014 [facility] [address] [id number] [address] [place] [address], [place] [address] Jul, [facility] [address] [id number] [facility] [place] [address] 12 Jul, 2014 [facility] [address] [id number] [address] [place] [address], [place] [address] Jul, [facility] [address] [id number] [address] [place] [address], [place] [address] Jul, [facility] [address] [id number] [address] [place] [address], [place] [address] Jul, [facility] [address] [id number] [address] [place] [address], [place] [address] Jul, [facility] [address] [id number] [address] [place] [address], [place] [address] Jul, [facility] [address] [id number] [address] [place] [address], [place] [address] Jul, [facility] [address] [id number] [address] [place] [address], [place] [address] Jun, [facility] [address] [id number] [address] [place] [address], [place] [address] Jun, [facility] [address] [id number] [address] [place] [address], [place] [address] Jun, [facility] [address] [id number] [address] [place] [address], [place] [address] Jun, [facility] [address] [id number] [address] [place] [address], [place] [address] Jun, [facility] [address] [id number] [address] [place] [address], [place] [address] Jun, [facility] [address] [id number] [address] [place] [address], [place] [address] Jun, [facility] [address] [id number] [address] [place] [address], [place] [address] Jun, [facility] [address] [id number] [facility] [place] [address] May, [facility] [address] [id number] [address] [place] [address], [place] [address] May, [facility] [address] [id number] [address] [place] [address], [place] [address] Apr, [facility] [address] [id number] [address] [place] [address], [place] [address] Apr, [facility] [address] [id number] [address] [place] [address], [place] [address] Apr, [facility] [address] [id number] [address] [place] [address], [place] [address] Apr, [facility] [address] [id number] [address] [place] [address], [place] [address] March, [facility] [address] [id number] [address] [place] [address], [place] [address] March, [facility] [address] [id number] [address] [place] [address], [place] [address] March, [facility] [address] [id number] [address] [place] [address], [place] [address] March, [facility] [address] [id number] [address] [place] [address], [place] [address] March, [facility] [address] [id number] [address] [place] [address], [place] [address] March, [facility] [address] [id number] [address] [place] [address], [place] [address] March, [facility] [address] [id number] [address] [place] [address], [place] [address] March, [facility] [address] [id number] [address] [place] [address], [place] [address] March, [facility] [address] [id number] [address] [place] [address], [place] [address] March, [facility] [address] [id number] [address] [place] [address], [place] [address] March, [facility] [address] [id number] [address] [place] [address], [place] [address] Nov, [facility] [address] [id number] [address] [place] [address], [place] [address] Nov, [facility] [address] [id number] [address] [place] [address], [place] [address] Nov, [facility] [address] [id number] [address] [place] [address], [place] [address] Oct, [facility] [address] [id number] [address] [place] [address], [place] [address] Oct, [facility] [address] [id number] [address] [place] [address], [place] [address] Aug, [facility] [address] [id number] [address] [place] [address] Aug, [facility] [place] [address] [id number] [place] [id number] Jun, [facility] [place] [address] [id number] [place] [id number] Apr, [facility] [address] [id number] [address] [place] [address] Apr, [facility] [address] [id number] [address] [place] [address], [place] [address] Apr, [facility] [place] [address] [id number] [place] [id number] March, [facility] [place] [address] [id number] [place] [id number] Feb, [facility] [place] [address] [id number] [place] [id number] Jan, [facility] [address] [id number] [address] [place] [address], [place] [address] Jan, [facility] [address] [id number] [address] [place] [address], [place] [address] Jan, [facility] [address] [id number] [address] [place] [address], [place] [address] Jan, [facility] [place] [address] [id number] [place] [id number] Dec, [facility] [place] [address] [id number] [place] [id number] Dec, [facility] [address] [id number] [address] [place] [address], [place] [address] Dec, [facility] [address] [facility] [id number] [address] [place] [address], [place] [address] Dec, [facility] [address] [facility] [id number] [address] [place] [address], [place] [address] Dec, [facility] [address] [facility] [id number] [address] [place] [address], [place] [address] Nov, [facility] [address] [id number] [address] [place] [address] Nov, [facility] [place] [address] [id number] [place] [id number] Nov, [facility] [address] [facility] [id number] [address] [place] [address] Nov, [facility] [place] [address] [id number] [place] [id number] Nov, [facility] [place] [address] [id number] [place] [id number] Nov, [facility] [place] [address] [id number] [place] [id number] Oct, [facility] [place] [address] [id number] [place] [id number] Oct, [facility] [address] [id number] [address] [place] [address] Oct, [facility] [address] [id number] [address] [place] [address] Oct, [facility] [address] [facility] [id number] [address] [place] [address] Oct, [facility] [address] [facility] [id number] [address] [place] [address] Sep, [facility] [address] [facility] [id number] [address] [place] [address] Sep, [facility] [place] [address] [id number] [place] [id number] Sep, [facility] [address] [id number] [place] [id number] Sep, [facility] [place] [address] [id number] [place] [id number] Sep, [facility] [address] [facility] [id number] [address] [place] [address] Sep, [facility] [address] [facility] [id number] [address] [place] [address] Aug, [facility] [address] [id number] [place] [id number] Aug, [facility] [address] [facility] [id number] [address] [place] [address] Aug, [facility] [address] [id number] [place] [id number] Jul, [facility] [address] [id number] [place] [id number] Jul, [facility] [address] [id number] [place] [id number] Jun, [facility] [place] [address] [id number] [place] [id number] May, [facility] [place] [address] [id number] [place] [id number] Feb, [facility] [place] [address] [id number] [place] [id number] Feb, [facility] [place] [address] [id number] [place] [id number] Feb, [facility] [address] [id number] [place] [id number] Dec, [facility] [address] [id number] [place] [id number] Dec, [facility] [address] [id number] [address] [place] [address] Oct, [facility] [address] [id number] [address] [place] [id number] Sep, [facility] [address] [id number] [address] [place] [id number] Sep, [facility] [address] [id number] [address] [place] [id number] Sep, [facility] [address] [id number] [address] [place] [id number] Sep, [facility] [address] [id number] [address] [place] [id number] March, [facility] [address] [id number] [address] [place] [id number] Sep, [facility] [address] [facility] [id number] [address] [place] [id number] Jul, [facility] [address] [id number] [address] [place] [id number] May, [facility] [address] [id number] [address] [place] [id number] Jan, [facility] [address] [id number] [address] [place] [id number] Sep, [facility] [address] [facility] [id number] [address] [place] [id number] Aug, IMMUNIZATIONS No Known Immunizations SOCIAL HISTORY [...]
--- OUTSIDE RECORDS SUMMARY | 2020-05-31 11:44 | XMS REPORT ---
Author Author Jeane Narvaez Organization [facility] Address [address] [place] [address] Care Team Providers Care Pressure Testing Technician Name Role Phone CHANELLE Narvaez Unavailable PROBLEMS Type Condition ICD9-CM Code [id number] Code Onset Dates Condition S tatus SNOMED Code Problem Depression F32.9 Active 75059245 Problem Anxiety F41.9 Active 31958096 Problem Environmental allergies Z91.09 Active 623769750 Problem Atherosclerotic 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 Active 414479815 Problem Lumbago with sciatica, unspecified side M54.40 Active 084082575 Problem Chronic pain syndrome G89.4 Active 413497110 Problem Hypercholesterolemia with hypertriglyceridemia E78 .2 Active 958428524 Problem Major depressive disorder, recurrent sev ere without psychotic features F33.2 Active 86122801 Problem Dysthymia (or depressive neurosis) F34.1 Active 82293714 Problem Cigarette nicotine dependence without complication F17.210 Active 21609486 Problem Alcohol use disorder, moderate, in sustained remission F10.21 Active 25331948 Problem Cannabis use disorder, mild, abuse F12.10 Active 28918013 Problem Elevated blood pressure I10 Active 41523434 ALLERGIES No Information ENCOUNTERS Encounter Location Date Diagnosis [facility] [address] [facility] [id number] [address] [place] [address] Dec, Major depressive disorder, r ecurrent severe without psychotic features F33.2 ; Chronic pain syndrome G89.4 and Encounter for immunization Z23 [facility] [address] [id number] [place] [id number] Aug, Elevated blood pressure I10 [facility] [address] [facility] [id number] [address] [place] [address] May, Hypercholesterolemia with hy pertriglyceridemia E78.2 and Atherosclerotic heart disease of [place] coronary 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 [facility] [address] [facility] [id number] [address] [place] [address] 11 Mar, 2018 Lumbago with sciatica, unspe cified side M54.40 ; Environmental allergies Z91.09 ; Hypercholesterolemia with hypertriglyceridemia E78.2 and Atherosclerotic heart disease of [place] coronary 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 [facility] [address] [facility] [id number] [address] [place] [address] 14 Dec, 2017 Severe episode of recurrent major depressive disorder, without psychotic features F33.2 ; Alcohol use disorder, moderate, in sustained remission F10.21 and Cannabis use disorder, mild, abuse F12.10 [facility] [address] [facility] [id number] [address] [place] [id number] 12 Dec, 2017 Severe episode of recurrent major depressive disorder, without psychotic features F33.2 [place] [address] [facility] [id number] [address] [place] [address] 18 Nov, 2017 [facility] [address] [facility] [id number] [address] [place] [address] 08 Nov, 2017 Atherosclerotic 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 ; Hypercholesterolemia with hypertriglyceridemia E78.2 ; Depression F32.9 and Cigarette nicotine dependence without complication F17.210 [facility] [address] [facility] [id number] [address] [place] [address] Oct, [facility] [address] [id number] [address] [place] [address] Jul, [facility] [address] [facility] [id number] [address] [place] [address] Jun, [facility] [address] [facility] [id number] [address] [place] [address] Apr, Pain in thoracic spine M54.6 and Lumbago with sciatica, unspecified side M54.40 [facility] [address] [facility] [id number] [address] [place] [address] March, [place] [address] [address] [place] [id number] [address] [place] [address] March, Depression F32.[address] [address] March, Anxiety F41.9 ; Depression F 32.9 ; Atherosclerotic heart disease of [place] coronary 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 ; Hypercholesterolemia with hypertriglyceridemia E78.2 ; Right wrist tendonitis M77.8 and Environmental allergies Z91.09 [facility] [address] [id number] [place] [id number] Dec, [address] [address] Nov, Iron deficiency anemia, unsp ecified iron deficiency anemia type D50.9 ; Anxiety F41.9 ; Dysthymia (or depressive neurosis) F34.1 and Hypercholesterolemia with hypertriglyceridemia E78.[address] [address] 14 Oct, [address] [address] Oct, [address] [address] Oct, Dysthymia (or depressive sherice rosis) F34.1 ; Atherosclerotic heart disease of [place] coronary 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 ; Coronary atherosclerosis due to lipid rich plaque I25.83 ; Hypercholesterolemia with hypertriglyceridemia E78.2 ; Iron deficiency anemia, unspecified iron deficiency anemia type D50.9 ; Hospital discharge follow-up Z09 ; History of PID Z87.42 ; Environmental allergies Z91.09 and Dysuria R30.[address] [address] Sep, [address] [address] Sep, [address] [address] Aug, Dysthymia F34.1 and Anxiety F41.9 [place] [address] [address] March, Coronary artery disease invo lving [place] coronary artery, angina presence unspecified, unspecified whether [place] or transplanted heart I25.10 ; Bipolar 1 disorder, depressed F31.9 ; Anxiety F41.9 and Dysthymia F34.1 [place] [address] [address] 04 Feb, 2016 Depression F32.9 and Stomach pain R10.9 [place] [address] [address] Jan, Hyperlipidemia 272.4 [place] [address] [address] 17 Dec, 2015 [place] [address] [address] Dec, Major depressive disorder, r ecurrent episode, unspecified 296.30 ; Anxiety F41.9 ; Grief F43.20 and Dysthymia F34.1 [place] [address] [address] Dec, Anxiety F41.9 and Grief F43. 20 [place] [address] [address] Oct, Insomnia, unspecified G47.00 and Anxiety F41.9 [place] [address] [address] Oct, Dysthymia F34.1 ; Right shou lder pain M25.511 ; Sciatica, right M54.31 and Iron deficiency anemia, unspecified iron deficiency anemia type D50.9 [place] [address] [address] Sep, [place] [address] [address] Sep, Grief F43.20 [facility] [address] [address] Sep, [facility] [address] [address] Sep, [facility] [address] [address] Sep, Hyperlipidemia E78.5 ; CAD ( coronary artery disease) I25.10 and HTN (hypertension) I10 [facility] [address] [address] Aug, Allergic rhinitis, unspecifi ed allergic rhinitis type J30.9 [place] [address] [address] Aug, Left-sided low back pain wit h right-sided sciatica M54.41 and Hyperlipidemia, unspecified hyperlipidemia E78.5 [facility] [address] [address] Aug, Neck pain M54.2 and Low back pain M54.5 [facility] [address] [address] Jun, [facility] [address] [address] Jun, [facility] [address] [address] Jun, CAD (coronary artery disease ) 414.00 ; Hyperlipidemia 272.4 and Anemia 285.9 [facility] [address] [address] Feb, [facility] [address] [address] Feb, [facility] [address] [address] Jan, [facility] [address] [id number] [address] [place] [address], [place] [address] Jan, [facility] [address] [id number] [address] [place] [address], [place] [address] Jan, [facility] [address] [id number] [address] [place] [address], [place] [address] Jan, [facility] [address] [id number] [address] [place] [address], [place] [address] Dec, 2014 [facility] [address] [id number] [address] [place] [address], [place] [address] Dec, 2014 [facility] [address] [id number] [address] [place] [address], [place] [address] Dec, 2014 [facility] [address] [id number] [address] [place] [address], [place] [address] Dec, 2014 [facility] [address] [id number] [address] [place] [address], [place] [address] Dec, 2014 [facility] [address] [id number] [address] [place] [address], [place] [address] Dec, 2014 [facility] [address] [id number] [address] [place] [address], [place] [address] Dec, 2014 [facility] [address] [id number] [address] [place] [address], [place] [address] Dec, 2014 [facility] [address] [id number] [address] [place] [address], [place] [address] 12 Dec, 2014 [facility] [address] [id number] [address] [place] [address], [place] [address] Dec, 2014 [facility] [address] [id number] [address] [place] [address], [place] [address] 05 Dec, 2014 [facility] [address] [id number] [address] [place] [address], [place] [address] 05 Fe2014 [facility] [address] [id number] [address] [place] [address], [place] [address] Nov, [facility] [address] [id number] [address] [place] [address], [place] [address] Nov, [facility] [address] [id number] [address] [place] [address], [place] [address] Nov, [facility] [address] [id number] [address] [place] [address], [place] [address] Nov, [facility] [address] [id number] [address] [place] [address], [place] [address] Oct, [facility] [address] [id number] [address] [place] [address], [place] [address] Oct, [facility] [address] [id number] [address] [place] [address], [place] [address] Sep, [facility] [address] [id number] [address] [place] [address], [place] [address] Sep, [facility] [address] [id number] [address] [place] [address], [place] [address] Aug, [facility] [address] [id number] [address] [place] [address], [place] [address] 03 Aug, 2014 [facility] [address] [id number] [address] [place] [address], [place] [address] 30 Jul, 2014 [facility] [address] [id number] [address] [place] [address], [place] [address] 30 Jul, 2013 [facility] [address] [id number] [address] [place] [address], [place] [address] 16 Jul, 2014 [facility] [address] [id number] [address] [place] [address], [place] [address] 16 Jul, 2013 [facility] [address] [id number] [address] [place] [address], [place] [address] 15 Jul, 2014 [facility] [address] [id number] [address] [place] [address], [place] [address] Jul, [facility] [address] [id number] [facility] [address] 12 Jul, 2014 [facility] [address] [id number] [address] [place] [address], [place] [address] Jul, [facility] [address] [id number] [address] [place] [address], [place] [address] Jul, [facility] [address] [id number] [address] [place] [address], [place] [address] Jul, [facility] [address] [id number] [address] [place] [address], [place] [address] Jul, [facility] [address] [id number] [address] [place] [address], [place] [address] Jul, [facility] [address] [id number] [address] [place] [address], [place] [address] Jul, [facility] [address] [id number] [address] [place] [address], [place] [address] Jun, [facility] [address] [id number] [address] [place] [address], [place] [address] Jun, [facility] [address] [id number] [address] [place] [address], [place] [address] Jun, [facility] [address] [id number] [address] [place] [address], [place] [address] Jun, [facility] [address] [id number] [address] [place] [address], [place] [address] Jun, [facility] [address] [id number] [address] [place] [address], [place] [address] Jun, [facility] [address] [id number] [address] [place] [address], [place] [address] Jun, [facility] [address] [id number] [address] [place] [address], [place] [address] Jun, [facility] [address] [id number] [facility] [address] May, [facility] [address] [id number] [address] [place] [address], [place] [address] May, [facility] [address] [id number] [address] [place] [address], [place] [address] Apr, [facility] [address] [id number] [address] [place] [address], [place] [address] Apr, [facility] [address] [id number] [address] [place] [address], [place] [address] Apr, [facility] [address] [id number] [address] [place] [address], [place] [address] Apr, [facility] [address] [id number] [address] [place] [address], [place] [address] March, [facility] [address] [id number] [address] [place] [address], [place] [address] March, [facility] [address] [id number] [address] [place] [address], [place] [address] March, [facility] [address] [id number] [address] [place] [address], [place] [address] March, [facility] [address] [id number] [address] [place] [address], [place] [address] March, [facility] [address] [id number] [address] [place] [address], [place] [address] March, [facility] [address] [id number] [address] [place] [address], [place] [address] March, [facility] [address] [id number] [address] [place] [address], [place] [address] March, [facility] [address] [id number] [address] [place] [address], [place] [address] March, [facility] [address] [id number] [address] [place] [address], [place] [address] March, [facility] [address] [id number] [address] [place] [address], [place] [address] March, [facility] [address] [id number] [address] [place] [address], [place] [address] Nov, [facility] [address] [id number] [address] [place] [address], [place] [address] Nov, [facility] [address] [id number] [address] [place] [address], [place] [address] Nov, [facility] [address] [id number] [address] [place] [address], [place] [address] Oct, [facility] [address] [id number] [address] [place] [address], [place] [address] Oct, [facility] [address] [id number] [address] [place] [address], [place] [address] Aug, [facility] [address] [id number] [address] [place] [address] Aug, [facility] [place] [address] [id number] [place] [id number] Jun, [facility] [place] [address] [id number] [place] [id number] Apr, [facility] [address] [id number] [address] [place] [address] Apr, [facility] [address] [id number] [address] [place] [address], [place] [address] Apr, [facility] [place] [address] [id number] [place] [id number] March, [facility] [place] [address] [id number] [place] [id number] Feb, [facility] [place] [address] [id number] [place] [id number] Jan, [facility] [address] [id number] [address] [place] [address], [place] [address] Jan, [facility] [address] [id number] [address] [place] [address], [place] [address] Jan, [facility] [address] [id number] [address] [place] [address], [place] [address] Jan, [facility] [place] [address] [id number] [place] [id number] Dec, [facility] [place] [address] [id number] [place] [id number] Dec, [facility] [address] [id number] [address] [place] [address], [place] [address] Dec, [facility] [address] [facility] [id number] [address] [place] [address], [place] [address] Dec, [facility] [address] [facility] [id number] [address] [place] [address], [place] [address] Dec, [facility] [address] [facility] [id number] [address] [place] [address], [place] [address] Nov, [facility] [address] [id number] [address] [place] [address] Nov, [facility] [place] [address] [id number] [place] [id number] Nov, [facility] [address] [facility] [id number] [address] [place] [address] Nov, [facility] [place] [address] [id number] [place] [id number] Nov, [facility] [place] [address] [id number] [place] [id number] Nov, [facility] [place] [address] [id number] [place] [id number] Oct, [facility] [place] [address] [id number] [place] [id number] Oct, [facility] [address] [id number] [address] [place] [address] Oct, [facility] [address] [id number] [address] [place] [address] Oct, [facility] [address] [facility] [id number] [address] [place] [address] Oct, [facility] [address] [facility] [id number] [address] [place] [address] Sep, [facility] [address] [facility] [id number] [address] [place] [address] Sep, [facility] [place] [address] [id number] [place] [id number] Sep, [facility] [place] [address] [id number] [place] [id number] Sep, [facility] [place] [address] [id number] [place] [id number] Sep, [facility] [address] [facility] [id number] [address] [place] [address] Sep, [facility] [address] [facility] [id number] [address] [place] [address] Aug, [facility] [place] [address] [id number] [place] [id number] Aug, [facility] [address] [facility] [id number] [address] [place] [address] Aug, [facility] [place] [address] [id number] [place] [id number] Jul, [facility] [place] [address] [id number] [place] [id number] Jul, [facility] [address] [id number] [place] [id number] Jun, [facility] [place] [address] [id number] [place] [id number] May, [facility] [place] [address] [id number] [place] [id number] Feb, [facility] [place] [address] [id number] [place] [id number] Feb, [facility] [place] [address] [id number] [place] [id number] Feb, [facility] [address] [id number] [place] [id number] Dec, [facility] [address] [id number] [place] [id number] Dec, [facility] [address] [id number] [address] [place] [id number] Oct, [facility] [address] [id number] [address] [place] [id number] Sep, [facility] [address] [id number] [address] [place] [id number] Sep, [facility] [address] [id number] [address] [place] [id number] Sep, [facility] [address] [id number] [address] [place] [id number] Sep, [facility] [address] [id number] [address] [place] [id number] March, [facility] [address] [id number] [address] [place] [id number] Sep, [facility] [address] [facility] [id number] [address] [place] [id number] Jul, [facility] [address] [id number] [address] [place] [id number] May, [facility] [address] [id number] [address] [place] [id number] Jan, [facility] [address] [id number] [address] [place] [id number] Sep, [facility] [address] [facility] [id number] [address] [place] [id number] Aug, IMMUNIZATIONS No Known Immunizations SOCIAL HISTORY [...]
--- OUTSIDE RECORDS SUMMARY | 2020-05-31 11:44 | XMS REPORT ---
Author Author Jeane WOLFF Organization [facility] Address [address] [place] [address] Care Team Providers Care Sales Planning Coordinator Name Role Phone NIKA WOLFF Unavailable PROBLEMS Type Condition ICD9-CM Code [id number] Code Onset Dates Condition S tatus SNOMED Code Problem Depression F32.9 Active 40263964 Problem Anxiety F41.9 Active 44254195 Problem Environmental allergies Z91.09 Active 456150963 Problem Atherosclerotic heart 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 Active 564827950 Problem Lumbago with sciatica, unspecified side M54.40 Active 216547699 Problem Chronic pain syndrome G89.4 Active 234193836 Problem Hypercholesterolemia with hypertriglyceridemia E78 .2 Active 104893466 Problem Major depressive disorder, recurrent sev ere without psychotic features F33.2 Active 07446155 Problem Dysthymia (or depressive neurosis) F34.1 Active 57726582 Problem Cigarette nicotine dependence without complication F17.210 Active 22607313 Problem Alcohol use disorder, moderate, in sustained remission F10.21 Active 77811460 Problem Cannabis use disorder, mild, abuse F12.10 Active 65215956 Problem Elevated blood pressure I10 Active 36179999 ALLERGIES No Information ENCOUNTERS Encounter Location Date Diagnosis [facility] [address] [facility] [id number] [address] [place] [id number] Dec, Major depressive disorder, r ecurrent severe without psychotic features F33.2 ; Chronic pain syndrome G89.4 and Encounter for immunization Z23 [facility] [address] [id number] [place] [id number] Aug, Elevated blood pressure I10 [facility] [address] [facility] [id number] [address] [place] [phone] May, Hypercholesterolemia with hy pertriglyceridemia E78.2 and Atherosclerotic heart disease of [place] coronary 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 [facility] [address] [facility] [id number] [address] [place] [id number] 11 Mar, 2018 Lumbago with sciatica, unspe cified side M54.40 ; Environmental allergies Z91.09 ; Hypercholesterolemia with hypertriglyceridemia E78.2 and Atherosclerotic heart disease of [place] coronary 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 [facility] [address] [facility] [id number] [address] [place] [id number] 14 Dec, 2017 Severe episode of recurrent major depressive disorder, without psychotic features F33.2 ; Alcohol use disorder, moderate, in sustained remission F10.21 and Cannabis use disorder, mild, abuse F12.10 [facility] [address] [facility] [id number] [address] [place] [id number] 12 Dec, 2017 Severe episode of recurrent major depressive disorder, without psychotic features F33.2 [place] [address] [facility] [id number] [address] [place] [id number] 18 Nov, 2017 [facility] [address] [facility] [id number] [address] [place] [id number] 08 Nov, 2017 Atherosclerotic heart 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 ; Hypercholesterolemia with hypertriglyceridemia E78.2 ; Depression F32.9 and Cigarette nicotine dependence without complication F17.210 [facility] [address] [facility] [id number] [address] [place] [phone] Oct, [facility] [address] [id number] [address] [place] [id number] Jul, [facility] [address] [facility] [id number] [address] [place] [id number] Jun, [facility] [address] [facility] [id number] [address] [place] [phone] Apr, Pain in thoracic spine M54.6 and Lumbago with sciatica, unspecified side M54.40 [facility] [address] [facility] [id number] [address] [place] [id number] March, [place] [address] [place] [id number] [address] [place] [phone] March, Depression F32.[address] [address] March, Anxiety F41.9 ; Depression F 32.9 ; Atherosclerotic heart disease of [place] coronary 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 ; Hypercholesterolemia with hypertriglyceridemia E78.2 ; Right wrist tendonitis M77.8 and Environmental allergies Z91.09 [facility] [address] [id number] [place] [id number] Dec, [address] [address] Nov, Iron deficiency anemia, unsp ecified iron deficiency anemia type D50.9 ; Anxiety F41.9 ; Dysthymia (or depressive neurosis) F34.1 and Hypercholesterolemia with hypertriglyceridemia E78.[address] [address] 14 Oct, [address] [address] Oct, [address] [address] Oct, Dysthymia (or depressive sherice rosis) F34.1 ; Atherosclerotic heart disease of [place] coronary 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 ; Coronary atherosclerosis due to lipid rich plaque I25.83 ; Hypercholesterolemia with hypertriglyceridemia E78.2 ; Iron deficiency anemia, unspecified iron deficiency anemia type D50.9 ; Hospital discharge follow-up Z09 ; History of PID Z87.42 ; Environmental allergies Z91.09 and Dysuria R30.[address] [address] Sep, [address] [address] Sep, [address] [address] Aug, Dysthymia F34.1 and Anxiety F41.9 [place] [address] [address] March, Coronary artery disease invo lving [place] coronary artery, angina presence unspecified, unspecified whether [place] or transplanted heart I25.10 ; Bipolar 1 disorder, depressed F31.9 ; Anxiety F41.9 and Dysthymia F34.1 [place] [address] [address] 04 Feb, 2016 Depression F32.9 and Stomach pain R10.9 [place] [address] [address] Jan, Hyperlipidemia 272.4 [place] [address] [address] 17 Dec, 2015 [place] [address] [address] Dec, Major depressive disorder, r ecurrent episode, unspecified 296.30 ; Anxiety F41.9 ; Grief F43.20 and Dysthymia F34.1 [place] [address] [address] Dec, Anxiety F41.9 and Grief F43. 20 [place] [address] [address] Oct, Insomnia, unspecified G47.00 and Anxiety F41.9 [place] [address] [address] Oct, Dysthymia F34.1 ; Right shou lder pain M25.511 ; Sciatica, right M54.31 and Iron deficiency anemia, unspecified iron deficiency anemia type D50.9 [place] [address] [address] Sep, [place] [address] [address] Sep, Grief F43.20 [facility] [address] [address] Sep, [facility] [address] [address] Sep, [facility] [address] [address] Sep, Hyperlipidemia E78.5 ; CAD ( coronary artery disease) I25.10 and HTN (hypertension) I10 [facility] [address] [address] Aug, Allergic rhinitis, unspecifi ed allergic rhinitis type J30.9 [place] [address] [address] Aug, Left-sided low back pain wit h right-sided sciatica M54.41 and Hyperlipidemia, unspecified hyperlipidemia E78.5 [facility] [address] [address] Aug, Neck pain M54.2 and Low back pain M54.5 [facility] [address] [address] Jun, [facility] [address] [address] Jun, [facility] [address] [address] Jun, CAD (coronary artery disease ) 414.00 ; Hyperlipidemia 272.4 and Anemia 285.9 [facility] [address] [address] Feb, [facility] [address] [address] Feb, [facility] [address] [address] Jan, [facility] [address] [id number] [address] [place] [address], [place] [address] Jan, [facility] [address] [id number] [address] [place] [address], [place] [address] Jan, [facility] [address] [id number] [address] [place] [address], [place] [address] Jan, [facility] [address] [id number] [address] [place] [address], [place] [address] Dec, 2014 [facility] [address] [id number] [address] [place] [address], [place] [address] Dec, 2014 [facility] [address] [id number] [address] [place] [address], [place] [address] Dec, 2014 [facility] [address] [id number] [address] [place] [address], [place] [address] Dec, 2014 [facility] [address] [id number] [address] [place] [address], [place] [address] Dec, 2014 [facility] [address] [id number] [address] [place] [address], [place] [address] Dec, 2014 [facility] [address] [id number] [address] [place] [address], [place] [address] Dec, 2014 [facility] [address] [id number] [address] [place] [address], [place] [address] Dec, 2014 [facility] [address] [id number] [address] [place] [address], [place] [address] 12 Dec, 2014 [facility] [address] [id number] [address] [place] [address], [place] [address] Dec, 2014 [facility] [address] [id number] [address] [place] [address], [place] [address] 05 Dec, 2014 [facility] [address] [id number] [address] [place] [address], [place] [address] 05 Fe2014 [facility] [address] [id number] [address] [place] [address], [place] [address] Nov, [facility] [address] [id number] [address] [place] [address], [place] [address] Nov, [facility] [address] [id number] [address] [place] [address], [place] [address] Nov, [facility] [address] [id number] [address] [place] [address], [place] [address] Nov, [facility] [address] [id number] [address] [place] [address], [place] [address] Oct, [facility] [address] [id number] [address] [place] [address], [place] [address] Oct, [facility] [address] [id number] [address] [place] [address], [place] [address] Sep, [facility] [address] [id number] [address] [place] [address], [place] [address] Sep, [facility] [address] [id number] [address] [place] [address], [place] [address] Aug, [facility] [address] [id number] [address] [place] [address], [place] [address] 03 Aug, 2014 [facility] [address] [id number] [address] [place] [address], [place] [address] 30 Jul, 2014 [facility] [address] [id number] [address] [place] [address], [place] [address] 30 Jul, 2013 [facility] [address] [id number] [address] [place] [address], [place] [address] 16 Jul, 2014 [facility] [address] [id number] [address] [place] [address], [place] [address] 16 Jul, 2013 [facility] [address] [id number] [address] [place] [address], [place] [address] 15 Jul, 2014 [facility] [address] [id number] [address] [place] [address], [place] [address] Jul, [facility] [address] [id number] [facility] [place] [address] 12 Jul, 2014 [facility] [address] [id number] [address] [place] [address], [place] [address] Jul, [facility] [address] [id number] [address] [place] [address], [place] [address] Jul, [facility] [address] [id number] [address] [place] [address], [place] [address] Jul, [facility] [address] [id number] [address] [place] [address], [place] [address] Jul, [facility] [address] [id number] [address] [place] [address], [place] [address] Jul, [facility] [address] [id number] [address] [place] [address], [place] [address] Jul, [facility] [address] [id number] [address] [place] [address], [place] [address] Jun, [facility] [address] [id number] [address] [place] [address], [place] [address] Jun, [facility] [address] [id number] [address] [place] [address], [place] [address] Jun, [facility] [address] [id number] [address] [place] [address], [place] [address] Jun, [facility] [address] [id number] [address] [place] [address], [place] [address] Jun, [facility] [address] [id number] [address] [place] [address], [place] [address] Jun, [facility] [address] [id number] [address] [place] [address], [place] [address] Jun, [facility] [address] [id number] [address] [place] [address], [place] [address] Jun, [facility] [address] [id number] [facility] [place] [address] May, [facility] [address] [id number] [address] [place] [address], [place] [address] May, [facility] [address] [id number] [address] [place] [address], [place] [address] Apr, [facility] [address] [id number] [address] [place] [address], [place] [address] Apr, [facility] [address] [id number] [address] [place] [address], [place] [address] Apr, [facility] [address] [id number] [address] [place] [address], [place] [address] Apr, [facility] [address] [id number] [address] [place] [address], [place] [address] March, [facility] [address] [id number] [address] [place] [address], [place] [address] March, [facility] [address] [id number] [address] [place] [address], [place] [address] March, [facility] [address] [id number] [address] [place] [address], [place] [address] March, [facility] [address] [id number] [address] [place] [address], [place] [address] March, [facility] [address] [id number] [address] [place] [address], [place] [address] March, [facility] [address] [id number] [address] [place] [address], [place] [address] March, [facility] [address] [id number] [address] [place] [address], [place] [address] March, [facility] [address] [id number] [address] [place] [address], [place] [address] March, [facility] [address] [id number] [address] [place] [address], [place] [address] March, [facility] [address] [id number] [address] [place] [address], [place] [address] March, [facility] [address] [id number] [address] [place] [address], [place] [address] Nov, [facility] [address] [id number] [address] [place] [address], [place] [address] Nov, [facility] [address] [id number] [address] [place] [address], [place] [address] Nov, [facility] [address] [id number] [address] [place] [address], [place] [address] Oct, [facility] [address] [id number] [address] [place] [address], [place] [address] Oct, [facility] [address] [id number] [address] [place] [address], [place] [address] Aug, [facility] [address] [id number] [address] [place] [address] Aug, [facility] [address] [id number] [place] [id number] Jun, [facility] [place] [address] [id number] [place] [id number] Apr, [facility] [address] [id number] [address] [place] [address] Apr, [facility] [address] [id number] [address] [place] [address], [place] [address] Apr, [facility] [place] [address] [id number] [place] [id number] March, [facility] [place] [address] [id number] [place] [id number] Feb, [facility] [place] [address] [id number] [place] [id number] Jan, [facility] [address] [id number] [address] [place] [address], [place] [address] Jan, [facility] [address] [id number] [address] [place] [address], [place] [address] Jan, [facility] [address] [id number] [address] [place] [address], [place] [address] Jan, [facility] [place] [address] [id number] [place] [id number] Dec, [facility] [place] [address] [id number] [place] [id number] Dec, [facility] [address] [id number] [address] [place] [address], [place] [address] Dec, [facility] [address] [facility] [id number] [address] [place] [address], [place] [address] Dec, [facility] [address] [facility] [id number] [address] [place] [address], [place] [address] Dec, [facility] [address] [facility] [id number] [address] [place] [address], [place] [address] Nov, [facility] [address] [id number] [address] [place] [id number] Nov, [facility] [place] [address] [id number] [place] [id number] Nov, [facility] [address] [facility] [id number] [address] [place] [address] Nov, [facility] [place] [address] [id number] [place] [id number] Nov, [facility] [place] [address] [id number] [place] [id number] Nov, [facility] [place] [address] [id number] [place] [id number] Oct, [facility] [place] [address] [id number] [place] [id number] Oct, [facility] [address] [id number] [address] [place] [id number] Oct, [facility] [address] [id number] [address] [place] [id number] Oct, [facility] [address] [facility] [id number] [address] [place] [id number] Oct, [facility] [address] [facility] [id number] [address] [place] [id number] Sep, [facility] [address] [facility] [id number] [address] [place] [id number] Sep, [facility] [address] [id number] [place] [id number] Sep, [facility] [place] [address] [id number] [place] [id number] Sep, [facility] [address] [id number] [place] [id number] Sep, [facility] [address] [facility] [id number] [address] [place] [id number] Sep, [facility] [address] [facility] [id number] [address] [place] [id number] Aug, [facility] [place] [address] [id number] [place] [id number] Aug, [facility] [address] [facility] [id number] [address] [place] [phone] Aug, [facility] [place] [address] [id number] [place] [id number] Jul, [facility] [address] [id number] [place] [id number] Jul, [facility] [address] [id number] [place] [id number] Jun, [facility] [place] [address] [id number] [place] [id number] May, [facility] [place] [address] [id number] [place] [id number] Feb, [facility] [address] [id number] [place] [id number] Feb, [facility] [place] [address] [id number] [place] [id number] Feb, [facility] [address] [id number] [place] [id number] Dec, [facility] [address] [id number] [place] [id number] Dec, [facility] [address] [id number] [address] [place] [id number] Oct, [facility] [address] [id number] [address] [place] [id number] Sep, [facility] [address] [id number] [address] [place] [id number] Sep, [facility] [address] [id number] [address] [place] [phone] Sep, [facility] [address] [id number] [address] [place] [id number] Sep, [facility] [address] [id number] [address] [place] [id number] March, [facility] [address] [id number] [address] [place] [phone] Sep, [facility] [address] [facility] [id number] [address] [place] [id number] Jul, [facility] [address] [id number] [address] [place] [id number] May, [facility] [address] [id number] [address] [place] [id number] Jan, [facility] [address] [id number] [address] [place] [phone] Sep, [facility] [address] [facility] [id number] [address] [place] [id number] Aug, IMMUNIZATIONS No Known Immunizations SOCIAL HISTORY [...]
--- OUTSIDE RECORDS SUMMARY | 2020-05-31 11:45 | XMS REPORT ---
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 Name Role Phone NIKA WOLFF Unavailable PROBLEMS Type Condition ICD9-CM Code [id number] Code Onset Dates Condition S tatus SNOMED Code Problem Depression F32.9 Active 86176189 Problem Anxiety F41.9 Active 66885262 Problem Environmental allergies Z91.09 Active 189130778 Problem Atherosclerotic heart diseas e of [place] coronary 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 Active 214110994 Problem Lumbago with sciatica, unspecified side M54.40 Active 733513835 Problem Chronic pain syndrome G89.4 Active 812083867 Problem Hypercholesterolemia with hypertriglyceridemia E78 .2 Active 348018848 Problem Major depressive disorder, recurrent sev ere without psychotic features F33.2 Active 66356338 Problem Dysthymia (or depressive neurosis) F34.1 Active 69419574 Problem Cigarette nicotine dependence without complication F17.210 Active 75993095 Problem Alcohol use disorder, moderate, in sustained remission F10.21 Active 04141953 Problem Cannabis use disorder, mild, abuse F12.10 Active 13725857 Problem Elevated blood pressure I10 Active 07119738 ALLERGIES No Information ENCOUNTERS Encounter Location Date Diagnosis [facility] [address] [facility] [id number] [address] [place] [address] Dec, Major depressive disorder, r ecurrent severe without psychotic features F33.2 ; Chronic pain syndrome G89.4 and Encounter for immunization Z23 [facility] [address] [id number] [place] [id number] Aug, Elevated blood pressure I10 [facility] [address] [facility] [id number] [address] [place] [address] May, Hypercholesterolemia with hy pertriglyceridemia E78.2 and Atherosclerotic heart disease of [place] coronary 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 [facility] [address] [facility] [id number] [address] [place] [address] 11 Mar, 2018 Lumbago with sciatica, unspe cified side M54.40 ; Environmental allergies Z91.09 ; Hypercholesterolemia with hypertriglyceridemia E78.2 and Atherosclerotic heart disease of [place] coronary 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 [facility] [address] [facility] [id number] [address] [place] [address] 14 Dec, 2017 Severe episode of recurrent major depressive disorder, without psychotic features F33.2 ; Alcohol use disorder, moderate, in sustained remission F10.21 and Cannabis use disorder, mild, abuse F12.10 [facility] [address] [facility] [id number] [address] [place] [address] 12 Dec, 2017 Severe episode of recurrent major depressive disorder, without psychotic features F33.2 [place] [address] [facility] [id number] [address] [place] [address] 18 Nov, 2017 [facility] [address] [facility] [id number] [address] [place] [address] 08 Nov, 2017 Atherosclerotic heart diseas e of [place] coronary 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 ; Hypercholesterolemia with hypertriglyceridemia E78.2 ; Depression F32.9 and Cigarette nicotine dependence without complication F17.210 [facility] [address] [facility] [id number] [address] [place] [address] Oct, [facility] [address] [id number] [address] [place] [address] Jul, [facility] [address] [facility] [id number] [address] [place] [address] Jun, [facility] [address] [facility] [id number] [address] [place] [address] Apr, Pain in thoracic spine M54.6 and Lumbago with sciatica, unspecified side M54.40 [facility] [address] [facility] [id number] [address] [place] [address] March, [place] [address] [address] [place] [id number] [address] [place] [address] March, Depression F32.[address] [address] March, Anxiety F41.9 ; Depression F 32.9 ; Atherosclerotic heart disease of [place] coronary 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 ; Hypercholesterolemia with hypertriglyceridemia E78.2 ; Right wrist tendonitis M77.8 and Environmental allergies Z91.09 [facility] [address] [id number] [place] [id number] Dec, [address] [address] Nov, Iron deficiency anemia, unsp ecified iron deficiency anemia type D50.9 ; Anxiety F41.9 ; Dysthymia (or depressive neurosis) F34.1 and Hypercholesterolemia with hypertriglyceridemia E78.[address] [address] 14 Oct, [address] [address] Oct, [address] [address] Oct, Dysthymia (or depressive sherice rosis) F34.1 ; Atherosclerotic heart disease of [place] coronary 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 ; Coronary atherosclerosis due to lipid rich plaque I25.83 ; Hypercholesterolemia with hypertriglyceridemia E78.2 ; Iron deficiency anemia, unspecified iron deficiency anemia type D50.9 ; Hospital discharge follow-up Z09 ; History of PID Z87.42 ; Environmental allergies Z91.09 and Dysuria R30.[address] [address] Sep, [address] [address] Sep, [address] [address] Aug, Dysthymia F34.1 and Anxiety F41.9 [place] [address] [address] March, Coronary artery disease invo lving [place] coronary artery, angina presence unspecified, unspecified whether [place] or transplanted heart I25.10 ; Bipolar 1 disorder, depressed F31.9 ; Anxiety F41.9 and Dysthymia F34.1 [place] [address] [address] 04 Feb, 2016 Depression F32.9 and Stomach pain R10.9 [place] [address] [address] Jan, Hyperlipidemia 272.4 [place] [address] [address] 17 Dec, 2015 [place] [address] [address] Dec, Major depressive disorder, r ecurrent episode, unspecified 296.30 ; Anxiety F41.9 ; Grief F43.20 and Dysthymia F34.1 [place] [address] [address] Dec, Anxiety F41.9 and Grief F43. 20 [place] [address] [address] Oct, Insomnia, unspecified G47.00 and Anxiety F41.9 [place] [address] [address] Oct, Dysthymia F34.1 ; Right shou lder pain M25.511 ; Sciatica, right M54.31 and Iron deficiency anemia, unspecified iron deficiency anemia type D50.9 [place] [address] [address] Sep, [place] [address] [address] Sep, Grief F43.20 [facility] [address] [address] Sep, [facility] [address] [address] Sep, [facility] [address] [address] Sep, Hyperlipidemia E78.5 ; CAD ( coronary artery disease) I25.10 and HTN (hypertension) I10 [facility] [address] [address] Aug, Allergic rhinitis, unspecifi ed allergic rhinitis type J30.9 [place] [address] [address] Aug, Left-sided low back pain wit h right-sided sciatica M54.41 and Hyperlipidemia, unspecified hyperlipidemia E78.5 [facility] [address] [address] Aug, Neck pain M54.2 and Low back pain M54.5 [facility] [address] [address] Jun, [facility] [address] [address] Jun, [facility] [address] [address] Jun, CAD (coronary artery disease ) 414.00 ; Hyperlipidemia 272.4 and Anemia 285.9 [facility] [address] [address] Feb, [facility] [address] [address] Feb, [facility] [address] [address] Jan, [facility] [address] [id number] [address] [place] [address], [place] [address] Jan, [facility] [address] [id number] [address] [place] [address], [place] [address] Jan, [facility] [address] [id number] [address] [place] [address], [place] [address] Jan, [facility] [address] [id number] [address] [place] [address], [place] [address] Dec, 2014 [facility] [address] [id number] [address] [place] [address], [place] [address] Dec, 2014 [facility] [address] [id number] [address] [place] [address], [place] [address] Dec, 2014 [facility] [address] [id number] [address] [place] [address], [place] [address] Dec, 2014 [facility] [address] [id number] [address] [place] [address], [place] [address] Dec, 2014 [facility] [address] [id number] [address] [place] [address], [place] [address] Dec, 2014 [facility] [address] [id number] [address] [place] [address], [place] [address] Dec, 2014 [facility] [address] [id number] [address] [place] [address], [place] [address] Dec, 2014 [facility] [address] [id number] [address] [place] [address], [place] [address] 12 Dec, 2014 [facility] [address] [id number] [address] [place] [address], [place] [address] Dec, 2014 [facility] [address] [id number] [address] [place] [address], [place] [address] 05 Dec, 2014 [facility] [address] [id number] [address] [place] [address], [place] [address] 05 Fe2014 [facility] [address] [id number] [address] [place] [address], [place] [address] Nov, [facility] [address] [id number] [address] [place] [address], [place] [address] Nov, [facility] [address] [id number] [address] [place] [address], [place] [address] Nov, [facility] [address] [id number] [address] [place] [address], [place] [address] Nov, [facility] [address] [id number] [address] [place] [address], [place] [address] Oct, [facility] [address] [id number] [address] [place] [address], [place] [address] Oct, [facility] [address] [id number] [address] [place] [address], [place] [address] Sep, [facility] [address] [id number] [address] [place] [address], [place] [address] Sep, [facility] [address] [id number] [address] [place] [address], [place] [address] Aug, [facility] [address] [id number] [address] [place] [address], [place] [address] 03 Aug, 2014 [facility] [address] [id number] [address] [place] [address], [place] [address] 30 Jul, 2014 [facility] [address] [id number] [address] [place] [address], [place] [address] 30 Jul, 2013 [facility] [address] [id number] [address] [place] [address], [place] [address] 16 Jul, 2014 [facility] [address] [id number] [address] [place] [address], [place] [address] 16 Jul, 2013 [facility] [address] [id number] [address] [place] [address], [place] [address] 15 Jul, 2014 [facility] [address] [id number] [address] [place] [address], [place] [address] Jul, [facility] [address] [id number] [facility] [place] [address] 12 Jul, 2014 [facility] [address] [id number] [address] [place] [address], [place] [address] Jul, [facility] [address] [id number] [address] [place] [address], [place] [address] Jul, [facility] [address] [id number] [address] [place] [address], [place] [address] Jul, [facility] [address] [id number] [address] [place] [address], [place] [address] Jul, [facility] [address] [id number] [address] [place] [address], [place] [address] Jul, [facility] [address] [id number] [address] [place] [address], [place] [address] Jul, [facility] [address] [id number] [address] [place] [address], [place] [address] Jun, [facility] [address] [id number] [address] [place] [address], [place] [address] Jun, [facility] [address] [id number] [address] [place] [address], [place] [address] Jun, [facility] [address] [id number] [address] [place] [address], [place] [address] Jun, [facility] [address] [id number] [address] [place] [address], [place] [address] Jun, [facility] [address] [id number] [address] [place] [address], [place] [address] Jun, [facility] [address] [id number] [address] [place] [address], [place] [address] Jun, [facility] [address] [id number] [address] [place] [address], [place] [address] Jun, [facility] [address] [id number] [facility] [place] [address] May, [facility] [address] [id number] [address] [place] [address], [place] [address] May, [facility] [address] [id number] [address] [place] [address], [place] [address] Apr, [facility] [address] [id number] [address] [place] [address], [place] [address] Apr, [facility] [address] [id number] [address] [place] [address], [place] [address] Apr, [facility] [address] [id number] [address] [place] [address], [place] [address] Apr, [facility] [address] [id number] [address] [place] [address], [place] [address] March, [facility] [address] [id number] [address] [place] [address], [place] [address] March, [facility] [address] [id number] [address] [place] [address], [place] [address] March, [facility] [address] [id number] [address] [place] [address], [place] [address] March, [facility] [address] [id number] [address] [place] [address], [place] [address] March, [facility] [address] [id number] [address] [place] [address], [place] [address] March, [facility] [address] [id number] [address] [place] [address], [place] [address] March, [facility] [address] [id number] [address] [place] [address], [place] [address] March, [facility] [address] [id number] [address] [place] [address], [place] [address] March, [facility] [address] [id number] [address] [place] [address], [place] [address] March, [facility] [address] [id number] [address] [place] [address], [place] [address] March, [facility] [address] [id number] [address] [place] [address], [place] [address] Nov, [facility] [address] [id number] [address] [place] [address], [place] [address] Nov, [facility] [address] [id number] [address] [place] [address], [place] [address] Nov, [facility] [address] [id number] [address] [place] [address], [place] [address] Oct, [facility] [address] [id number] [address] [place] [address], [place] [address] Oct, [facility] [address] [id number] [address] [place] [address], [place] [address] Aug, [facility] [address] [id number] [address] [place] [address] Aug, [facility] [place] [address] [id number] [place] [id number] Jun, [facility] [address] [id number] [place] [id number] Apr, [facility] [address] [id number] [address] [place] [address] Apr, [facility] [address] [id number] [address] [place] [address], [place] [address] Apr, [facility] [place] [address] [id number] [place] [id number] March, [facility] [place] [address] [id number] [place] [id number] Feb, [facility] [place] [address] [id number] [place] [id number] Jan, [facility] [address] [id number] [address] [place] [address], [place] [address] Jan, [facility] [address] [id number] [address] [place] [address], [place] [address] Jan, [facility] [address] [id number] [address] [place] [address], [place] [address] Jan, [facility] [place] [address] [id number] [place] [id number] Dec, [facility] [place] [address] [id number] [place] [id number] Dec, [facility] [address] [id number] [address] [place] [address], [place] [address] Dec, [facility] [address] [facility] [id number] [address] [place] [address], [place] [address] Dec, [facility] [address] [facility] [id number] [address] [place] [address], [place] [address] Dec, [facility] [address] [facility] [id number] [address] [place] [address], [place] [address] Nov, [facility] [address] [id number] [address] [place] [address] Nov, [facility] [place] [address] [id number] [place] [id number] Nov, [facility] [address] [facility] [id number] [address] [place] [address] Nov, [facility] [place] [address] [id number] [place] [id number] Nov, [facility] [place] [address] [id number] [place] [id number] Nov, [facility] [place] [address] [id number] [place] [id number] Oct, [facility] [place] [address] [id number] [place] [id number] Oct, [facility] [address] [id number] [address] [place] [address] Oct, [facility] [address] [id number] [address] [place] [address] Oct, [facility] [address] [facility] [id number] [address] [place] [address] Oct, [facility] [address] [facility] [id number] [address] [place] [address] Sep, [facility] [address] [facility] [id number] [address] [place] [address] Sep, [facility] [address] [id number] [place] [id number] Sep, [facility] [address] [id number] [place] [id number] Sep, [facility] [address] [id number] [place] [id number] Sep, [facility] [address] [facility] [id number] [address] [place] [address] Sep, [facility] [address] [facility] [id number] [address] [place] [address] Aug, [facility] [address] [id number] [place] [id number] Aug, [facility] [address] [facility] [id number] [address] [place] [address] Aug, [facility] [address] [id number] [place] [id number] Jul, [facility] [address] [id number] [place] [id number] Jul, [facility] [address] [id number] [place] [id number] Jun, [facility] [place] [address] [id number] [place] [id number] May, [facility] [place] [address] [id number] [place] [id number] Feb, [facility] [address] [id number] [place] [id number] Feb, [facility] [place] [address] [id number] [place] [id number] Feb, [facility] [address] [id number] [place] [id number] Dec, [facility] [address] [id number] [place] [id number] Dec, [facility] [address] [id number] [address] [place] [address] Oct, [facility] [address] [id number] [address] [place] [address] Sep, [facility] [address] [id number] [address] [place] [address] Sep, [facility] [address] [id number] [address] [place] [address] Sep, [facility] [address] [id number] [address] [place] [address] Sep, [facility] [address] [id number] [address] [place] [address] March, [facility] [address] [id number] [address] [place] [address] Sep, [facility] [address] [facility] [id number] [address] [place] [id number] Jul, [facility] [address] [id number] [address] [place] [phone] May, [facility] [address] [id number] [address] [place] [phone] Jan, [facility] [address] [id number] [address] [place] [id number] Sep, [facility] [address] [facility] [id number] [address] [place] [id number] Aug, IMMUNIZATIONS No Known Immunizations SOCIAL HISTORY [...]
--- OUTSIDE RECORDS SUMMARY | 2020-05-31 11:45 | XMS REPORT ---
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 Active 553804987 Problem Lumbago with sciatica, unspecified side M54.40 Active 868711102 Problem Chronic pain syndrome G89.4 Active 330661586 Problem Hypercholesterolemia with hypertriglyceridemia E78 .2 Active 117672522 Problem Major depressive disorder, recurrent sev ere without psychotic features F33.2 Active 54286075 Problem Dysthymia (or depressive neurosis) F34.1 Active 02035543 Problem Cigarette nicotine dependence without complication F17.210 Active 88189674 Problem Alcohol use disorder, moderate, in sustained remission F10.21 Active 80172084 Problem Cannabis use disorder, mild, abuse F12.10 Active 93451638 Problem Elevated blood pressure I10 Active 68493442 ALLERGIES No Information ENCOUNTERS Encounter Location Date Diagnosis [facility] [address] [facility] [id number] [address] [place] [id number] Dec, Major depressive disorder, r ecurrent severe without psychotic features F33.2 ; Chronic pain syndrome G89.4 and Encounter for immunization Z23 [facility] [address] [id number] [place] [id number] Aug, Elevated blood pressure I10 [facility] [address] [facility] [id number] [address] [place] [id number] May, Hypercholesterolemia with hy pertriglyceridemia E78.2 and Atherosclerotic heart disease of k[place] coronary 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 [facility] [address] [facility] [id number] [address] [place] [address] 11 Mar, 2018 Lumbago with sciatica, unspe cified side M54.40 ; Environmental allergies Z91.09 ; Hypercholesterolemia with hypertriglyceridemia E78.2 and Atherosclerotic heart disease of k[place] coronary 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 [facility] [address] [facility] [id number] [address] [place] [id number] 14 Dec, 2017 Severe episode of recurrent major depressive disorder, without psychotic features F33.2 ; Alcohol use disorder, moderate, in sustained remission F10.21 and Cannabis use disorder, mild, abuse F12.10 [facility] [address] [facility] [id number] [address] [place] [id number] 12 Dec, 2017 Severe episode of recurrent major depressive disorder, without psychotic features F33.2 [place] [address] [facility] [id number] [address] [place] [id number] 18 Nov, 2017 [facility] [address] [facility] [id number] [address] [place] [id number] 08 Nov, 2017 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 ; Hypercholesterolemia with hypertriglyceridemia E78.2 ; Depression F32.9 and Cigarette nicotine dependence without complication F17.210 [facility] [address] [facility] [id number] [address] [place] [id number] Oct, [facility] [address] [id number] [address] [place] [address] Jul, [facility] [address] [facility] [id number] [address] [place] [id number] Jun, [facility] [address] [facility] [id number] [address] [place] [id number] Apr, Pain in thoracic spine M54.6 and Lumbago with sciatica, unspecified side M54.40 [facility] [address] [facility] [id number] [address] [place] [id number] March, [place] [address] [address] [place] [id number] [address] [place] [address] March, Depression F32.[address] [address] March, Anxiety F41.9 ; Depression F 32.9 ; Atherosclerotic heart disease of k[place] coronary 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 ; Hypercholesterolemia with hypertriglyceridemia E78.2 ; Right wrist tendonitis M77.8 and Environmental allergies Z91.09 [facility] [address] [id number] [place] [id number] Dec, [address] [address] Nov, Iron deficiency anemia, unsp ecified iron deficiency anemia type D50.9 ; Anxiety F41.9 ; Dysthymia (or depressive neurosis) F34.1 and Hypercholesterolemia with hypertriglyceridemia E78.[address] [address] 14 Oct, [address] [address] Oct, [address] [address] Oct, Dysthymia (or depressive sherice rosis) F34.1 ; Atherosclerotic heart disease of kake coronary 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 ; Coronary atherosclerosis due to lipid rich plaque I25.83 ; Hypercholesterolemia with hypertriglyceridemia E78.2 ; Iron deficiency anemia, unspecified iron deficiency anemia type D50.9 ; Hospital discharge follow-up Z09 ; History of PID Z87.42 ; Environmental allergies Z91.09 and Dysuria R30.[address] [address] Sep, [address] [address] Sep, [address] [address] Aug, Dysthymia F34.1 and Anxiety F41.9 [place] [address] [address] March, Coronary artery disease invo lving kake coronary artery, angina presence unspecified, unspecified whether kake or transplanted heart I25.10 ; Bipolar 1 disorder, depressed F31.9 ; Anxiety F41.9 and Dysthymia F34.1 [place] [address] [address] 04 Feb, 2016 Depression F32.9 and Stomach pain R10.9 [place] [address] [address] Jan, Hyperlipidemia 272.4 [place] [address] [address] 17 Dec, 2015 [place] [address] [address] Dec, Major depressive disorder, r ecurrent episode, unspecified 296.30 ; Anxiety F41.9 ; Grief F43.20 and Dysthymia F34.1 [place] [address] [address] Dec, Anxiety F41.9 and Grief F43. 20 [place] [address] [address] Oct, Insomnia, unspecified G47.00 and Anxiety F41.9 [place] [address] [address] Oct, Dysthymia F34.1 ; Right shou lder pain M25.511 ; Sciatica, right M54.31 and Iron deficiency anemia, unspecified iron deficiency anemia type D50.9 [place] [address] [address] Sep, [place] [address] [address] Sep, Grief F43.20 [facility] [address] [address] Sep, [facility] [address] [address] Sep, [facility] [address] [address] Sep, Hyperlipidemia E78.5 ; CAD ( coronary artery disease) I25.10 and HTN (hypertension) I10 [facility] [address] [address] Aug, Allergic rhinitis, unspecifi ed allergic rhinitis type J30.9 [place] [address] [address] Aug, Left-sided low back pain wit h right-sided sciatica M54.41 and Hyperlipidemia, unspecified hyperlipidemia E78.5 [facility] [address] [address] Aug, Neck pain M54.2 and Low back pain M54.5 [facility] [address] [address] Jun, [facility] [address] [address] Jun, [facility] [address] [address] Jun, CAD (coronary artery disease ) 414.00 ; Hyperlipidemia 272.4 and Anemia 285.9 [facility] [address] [address] Feb, [facility] [address] [address] Feb, [facility] [address] [address] Jan, [facility] [address] [id number] [address] [place] [address], [place] [address] Jan, [facility] [address] [id number] [address] [place] [address], [place] [address] Jan, [facility] [address] [id number] [address] [place] [address], [place] [address] Jan, [facility] [address] [id number] [address] [place] [address], [place] [address] Dec, 2014 [facility] [address] [id number] [address] [place] [address], [place] [address] Dec, 2014 [facility] [address] [id number] [address] [place] [address], [place] [address] Dec, 2014 [facility] [address] [id number] [address] [place] [address], [place] [address] Dec, 2014 [facility] [address] [id number] [address] [place] [address], [place] [address] Dec, 2014 [facility] [address] [id number] [address] [place] [address], [place] [address] Dec, 2014 [facility] [address] [id number] [address] [place] [address], [place] [address] Dec, 2014 [facility] [address] [id number] [address] [place] [address], [place] [address] Dec, 2014 [facility] [address] [id number] [address] [place] [address], [place] [address] 12 Dec, 2014 [facility] [address] [id number] [address] [place] [address], [place] [address] Dec, 2014 [facility] [address] [id number] [address] [place] [address], [place] [address] 05 Dec, 2014 [facility] [address] [id number] [address] [place] [address], [place] [address] 05 Fe2014 [facility] [address] [id number] [address] [place] [address], [place] [address] Nov, [facility] [address] [id number] [address] [place] [address], [place] [address] Nov, [facility] [address] [id number] [address] [place] [address], [place] [address] Nov, [facility] [address] [id number] [address] [place] [address], [place] [address] Nov, [facility] [address] [id number] [address] [place] [address], [place] [address] Oct, [facility] [address] [id number] [address] [place] [address], [place] [address] Oct, [facility] [address] [id number] [address] [place] [address], [place] [address] Sep, [facility] [address] [id number] [address] [place] [address], [place] [address] Sep, [facility] [address] [id number] [address] [place] [address], [place] [address] Aug, [facility] [address] [id number] [address] [place] [address], [place] [address] 03 Aug, 2014 [facility] [address] [id number] [address] [place] [address], [place] [address] 30 Jul, 2014 [facility] [address] [id number] [address] [place] [address], [place] [address] 30 Jul, 2013 [facility] [address] [id number] [address] [place] [address], [place] [address] 16 Jul, 2014 [facility] [address] [id number] [address] [place] [address], [place] [address] 16 Jul, 2013 [facility] [address] [id number] [address] [place] [address], [place] [address] 15 Jul, 2014 [facility] [address] [id number] [address] [place] [address], [place] [address] Jul, [facility] [address] [id number] [facility] [place] [address] 12 Jul, 2014 [facility] [address] [id number] [address] [place] [address], [place] [address] Jul, [facility] [address] [id number] [address] [place] [address], [place] [address] Jul, [facility] [address] [id number] [address] [place] [address], [place] [address] Jul, [facility] [address] [id number] [address] [place] [address], [place] [address] Jul, [facility] [address] [id number] [address] [place] [address], [place] [address] Jul, [facility] [address] [id number] [address] [place] [address], [place] [address] Jul, [facility] [address] [id number] [address] [place] [address], [place] [address] Jun, [facility] [address] [id number] [address] [place] [address], [place] [address] Jun, [facility] [address] [id number] [address] [place] [address], [place] [address] Jun, [facility] [address] [id number] [address] [place] [address], [place] [address] Jun, [facility] [address] [id number] [address] [place] [address], [place] [address] Jun, [facility] [address] [id number] [address] [place] [address], [place] [address] Jun, [facility] [address] [id number] [address] [place] [address], [place] [address] Jun, [facility] [address] [id number] [address] [place] [address], [place] [address] Jun, [facility] [address] [id number] [facility] [place] [address] May, [facility] [address] [id number] [address] [place] [address], [place] [address] May, [facility] [address] [id number] [address] [place] [address], [place] [address] Apr, [facility] [address] [id number] [address] [place] [address], [place] [address] Apr, [facility] [address] [id number] [address] [place] [address], [place] [address] Apr, [facility] [address] [id number] [address] [place] [address], [place] [address] Apr, [facility] [address] [id number] [address] [place] [address], [place] [address] March, [facility] [address] [id number] [address] [place] [address], [place] [address] March, [facility] [address] [id number] [address] [place] [address], [place] [address] March, [facility] [address] [id number] [address] [place] [address], [place] [address] March, [facility] [address] [id number] [address] [place] [address], [place] [address] March, [facility] [address] [id number] [address] [place] [address], [place] [address] March, [facility] [address] [id number] [address] [place] [address], [place] [address] March, [facility] [address] [id number] [address] [place] [address], [place] [address] March, [facility] [address] [id number] [address] [place] [address], [place] [address] March, [facility] [address] [id number] [address] [place] [address], [place] [address] March, [facility] [address] [id number] [address] [place] [address], [place] [address] March, [facility] [address] [id number] [address] [place] [address], [place] [address] Nov, [facility] [address] [id number] [address] [place] [address], [place] [address] Nov, [facility] [address] [id number] [address] [place] [address], [place] [address] Nov, [facility] [address] [id number] [address] [place] [address], [place] [address] Oct, [facility] [address] [id number] [address] [place] [address], [place] [address] Oct, [facility] [address] [id number] [address] [place] [address], [place] [address] Aug, [facility] [address] [id number] [address] [place] [address] Aug, [facility] [place] [address] [id number] [place] [id number] Jun, [facility] [place] [address] [id number] [place] [id number] Apr, [facility] [address] [id number] [address] [place] [address] Apr, [facility] [address] [id number] [address] [place] [address], [place] [address] Apr, [facility] [place] [address] [id number] [place] [id number] March, [facility] [place] [address] [id number] [place] [id number] Feb, [facility] [place] [address] [id number] [place] [id number] Jan, [facility] [address] [id number] [address] [place] [address], [place] [address] Jan, [facility] [address] [id number] [address] [place] [address], [place] [address] Jan, [facility] [address] [id number] [address] [place] [address], [place] [address] Jan, [facility] [place] [address] [id number] [place] [id number] Dec, [facility] [place] [address] [id number] [place] [id number] Dec, [facility] [address] [id number] [address] [place] [address], [place] [address] Dec, [facility] [address] [facility] [id number] [address] [place] [address], [place] [address] Dec, [facility] [address] [facility] [id number] [address] [place] [address], [place] [address] Dec, [facility] [address] [facility] [id number] [address] [place] [address], [place] [address] Nov, [facility] [address] [id number] [address] [place] [address] Nov, [facility] [place] [address] [id number] [place] [id number] Nov, [facility] [address] [facility] [id number] [address] [place] [address] Nov, [facility] [place] [address] [id number] [place] [id number] Nov, [facility] [place] [address] [id number] [place] [id number] Nov, [facility] [place] [address] [id number] [place] [id number] Oct, [facility] [place] [address] [id number] [place] [id number] Oct, [facility] [address] [id number] [address] [place] [address] Oct, [facility] [address] [id number] [address] [place] [address] Oct, [facility] [address] [facility] [id number] [address] [place] [address] Oct, [facility] [address] [facility] [id number] [address] [place] [address] Sep, [facility] [address] [facility] [id number] [address] [place] [address] Sep, [facility] [place] [address] [id number] [place] [id number] Sep, [facility] [place] [address] [id number] [place] [id number] Sep, [facility] [place] [address] [id number] [place] [id number] Sep, [facility] [address] [facility] [id number] [address] [place] [address] Sep, [facility] [address] [facility] [id number] [address] [place] [address] Aug, [facility] [place] [address] [id number] [place] [id number] Aug, [facility] [address] [facility] [id number] [address] [place] [address] Aug, [facility] [place] [address] [id number] [place] [id number] Jul, [facility] [place] [address] [id number] [place] [id number] Jul, [facility] [place] [address] [id number] [place] [id number] Jun, [facility] [place] [address] [id number] [place] [id number] May, [facility] [place] [address] [id number] [place] [id number] Feb, [facility] [place] [address] [id number] [place] [id number] Feb, [facility] [place] [address] [id number] [place] [id number] Feb, [facility] [address] [id number] [place] [id number] Dec, [facility] [address] [id number] [place] [id number] Dec, [facility] [address] [id number] [address] [place] [address] Oct, [facility] [address] [id number] [address] [place] [address] Sep, [facility] [address] [id number] [address] [place] [id number] Sep, [facility] [address] [id number] [address] [place] [phone] Sep, [facility] [address] [id number] [address] [place] [phone] Sep, [facility] [address] [id number] [address] [place] [phone] March, [facility] [address] [id number] [address] [place] [id number] Sep, [facility] [address] [facility] [id number] [address] [place] [id number] Jul, [facility] [address] [id number] [address] [place] [id number] May, [facility] [address] [id number] [address] [place] [id number] Jan, [facility] [address] [id number] [address] [place] [id number] Sep, [facility] [address] [facility] [id number] [address] [place] [id number] Aug, IMMUNIZATIONS No Known Immunizations SOCIAL HISTORY [...]
--- OUTSIDE RECORDS SUMMARY | 2020-05-31 11:45 | XMS REPORT ---
Author Author Jeane JONES Organization [facility] Address [address] [place] [address] Care Team Providers Care Mass Spec Name Role Phone BIBIANA JONES Unavailable PROBLEMS Type Condition ICD9-CM Code WBU14-AP Code Onset Dates Condition S tatus SNOMED Code Problem Depression F32.9 Active 50593172 Problem Anxiety F41.9 Active 67885331 Problem Environmental allergies Z91.09 Active 209322315 Problem Atherosclerotic 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 Active 117251113 Problem Lumbago with sciatica, unspecified side M54.40 Active 278706648 Problem Chronic pain syndrome G89.4 Active 757054004 Problem Hypercholesterolemia with hypertriglyceridemia E78 .2 Active 379503001 Problem Major depressive disorder, recurrent sev ere without psychotic features F33.2 Active 04053529 Problem Dysthymia (or depressive neurosis) F34.1 Active 91877346 Problem Cigarette nicotine dependence without complication F17.210 Active 16803348 Problem Alcohol use disorder, moderate, in sustained remission F10.21 Active 47495190 Problem Cannabis use disorder, mild, abuse F12.10 Active 57546847 Problem Elevated blood pressure I10 Active 98599570 ALLERGIES No Information ENCOUNTERS Encounter Location Date Diagnosis [facility] [address] [facility] [id number] [address] [place] [address] Dec, Major depressive disorder, r ecurrent severe without psychotic features F33.2 ; Chronic pain syndrome G89.4 and Encounter for immunization Z23 [facility] [address] [id number] [place] [id number] Aug, Elevated blood pressure I10 [facility] [address] [facility] [id number] [address] [place] [address] May, Hypercholesterolemia with hy pertriglyceridemia E78.2 and Atherosclerotic heart disease of [place] coronary 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 [facility] [address] [id number] [address] [place] [address] 11 Mar, 2018 Lumbago with sciatica, unspe cified side M54.40 ; Environmental allergies Z91.09 ; Hypercholesterolemia with hypertriglyceridemia E78.2 and Atherosclerotic heart disease of [place] coronary 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 [facility] [address] [facility] [id number] [address] [place] [address] 14 Dec, 2017 Severe episode of recurrent major depressive disorder, without psychotic features F33.2 ; Alcohol use disorder, moderate, in sustained remission F10.21 and Cannabis use disorder, mild, abuse F12.10 [place] [address] [facility] [id number] [address] [place] [address] 12 Dec, 2017 Severe episode of recurrent major depressive disorder, without psychotic features F33.2 [place] [address] [facility] [id number] [address] [place] [address] Nov, [place] [address] [facility] [id number] [address] [place] [address] 08 Nov, 2017 Atherosclerotic 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 ; Hypercholesterolemia with hypertriglyceridemia E78.2 ; Depression F32.9 and Cigarette nicotine dependence without complication F17.210 [place] [address] [place] [id number] [address] [place] [address] Oct, [facility] [address] [facility] [id number] [address] [place] [address] Jul, [facility] [address] [id number] [address] [place] [address] Jun, [facility] [address] [facility] [id number] [address] [place] [address] Apr, Pain in thoracic spine M54.6 and Lumbago with sciatica, unspecified side M54.40 [facility] [address] [facility] [id number] [address] [place] [address] March, [place] [address] [address] March, Depression F32.[address] [address] March, Anxiety F41.9 ; Depression F 32.9 ; Atherosclerotic heart disease of [place] coronary 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 ; Hypercholesterolemia with hypertriglyceridemia E78.2 ; Right wrist tendonitis M77.8 and Environmental allergies Z91.09 [place] [address] [place] [id number] [place] [id number] Dec, [address] [address] Nov, Iron deficiency anemia, unsp ecified iron deficiency anemia type D50.9 ; Anxiety F41.9 ; Dysthymia (or depressive neurosis) F34.1 and Hypercholesterolemia with hypertriglyceridemia E78.[address] [address] Oct, [address] [address] Oct, [address] [address] Oct, Dysthymia (or depressive sherice rosis) F34.1 ; Atherosclerotic heart disease of [place] coronary 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 ; Coronary atherosclerosis due to lipid rich plaque I25.83 ; Hypercholesterolemia with hypertriglyceridemia E78.2 ; Iron deficiency anemia, unspecified iron deficiency anemia type D50.9 ; Hospital discharge follow-up Z09 ; History of PID Z87.42 ; Environmental allergies Z91.09 and Dysuria R30.[address] [address] Sep, [address] [address] Sep, [address] [address] Aug, Dysthymia F34.1 and Anxiety F41.9 [place] [address] [address] March, Coronary artery disease invo lving [place] coronary artery, angina presence unspecified, unspecified whether [place] or transplanted heart I25.10 ; Bipolar 1 disorder, depressed F31.9 ; Anxiety F41.9 and Dysthymia F34.1 [place] [address] [address] 04 Feb, 2016 Depression F32.9 and Stomach pain R10.9 [place] [address] [address] Jan, Hyperlipidemia 272.4 [place] [address] [address] 17 Dec, 2015 [place] [address] [address] 11 Dec, 2015 Major depressive disorder, r ecurrent episode, unspecified 296.30 ; Anxiety F41.9 ; Grief F43.20 and Dysthymia F34.1 [place] [address] [address] Dec, Anxiety F41.9 and Grief F43. 20 [place] [address] [address] Oct, Insomnia, unspecified G47.00 and Anxiety F41.9 [place] [address] [address] Oct, Dysthymia F34.1 ; Right shou lder pain M25.511 ; Sciatica, right M54.31 and Iron deficiency anemia, unspecified iron deficiency anemia type D50.9 [place] [address] [address] Sep, [place] [address] [address] Sep, Grief F43.20 [facility] [address] [address] Sep, [facility] [address] [address] Sep, [facility] [address] [address] Sep, Hyperlipidemia E78.5 ; CAD ( coronary artery disease) I25.10 and HTN (hypertension) I10 [facility] [address] [address] Aug, Allergic rhinitis, unspecifi ed allergic rhinitis type J30.9 [place] [address] [address] Aug, Left-sided low back pain wit h right-sided sciatica M54.41 and Hyperlipidemia, unspecified hyperlipidemia E78.5 [place] [address] [address] Aug, Neck pain M54.2 and Low back pain M54.5 [place] [address] [address] Jun, [facility] [address] [address] Jun, [facility] [address] [address] Jun, CAD (coronary artery disease ) 414.00 ; Hyperlipidemia 272.4 and Anemia 285.9 [facility] [address] [address] Feb, [facility] [address] [address] Feb, [facility] [address] [address] Jan, [facility] [address] [id number] [address] [place] [address], [place] [address] Jan, [facility] [address] [id number] [address] [place] [address], [place] [address] Jan, [facility] [address] [id number] [address] [place] [address], [place] [address] Jan, [facility] [address] [id number] [address] [place] [address], [place] [address] Dec, 2014 [facility] [address] [id number] [address] [place] [address], [place] [address] Dec, [facility] [address] [id number] [address] [place] [address], [place] [address] Dec, 2014 [facility] [address] [id number] [address] [place] [address], [place] [address] Dec, 2014 [facility] [address] [id number] [address] [place] [address], [place] [address] Dec, 2014 [facility] [address] [id number] [address] [place] [address], [place] [address] Dec, 2014 [facility] [address] [id number] [address] [place] [address], [place] [address] Dec, 2014 [facility] [address] [id number] [address] [place] [address], [place] [address] Dec, 2014 [facility] [address] [id number] [address] [place] [address], [place] [address] 12 Dec, 2014 [facility] [address] [id number] [address] [place] [address], [place] [address] Dec, 2014 [facility] [address] [id number] [address] [place] [address], [place] [address] 05 Dec, 2014 [facility] [address] [id number] [address] [place] [address], [place] [address] Dec, 2014 [facility] [address] [id number] [address] [place] [address], [place] [address] Nov, [facility] [address] [id number] [address] [place] [address], [place] [address] Nov, [facility] [address] [id number] [address] [place] [address], [place] [address] Nov, [facility] [address] [id number] [address] [place] [address], [place] [address] Nov, [facility] [address] [id number] [address] [place] [address], [place] [address] Oct, [facility] [address] [id number] [address] [place] [address], [place] [address] Oct, [facility] [address] [id number] [address] [place] [address], [place] [address] Sep, [facility] [address] [id number] [address] [place] [address], [place] [address] Sep, [facility] [address] [id number] [address] [place] [address], [place] [address] Aug, [facility] [address] [id number] [address] [place] [address], [place] [address] 03 Aug, 2014 [facility] [address] [id number] [address] [place] [address], [place] [address] 30 Jul, 2014 [facility] [address] [id number] [address] [place] [address], [place] [address] 30 Jul, 2013 [facility] [address] [id number] [address] [place] [address], [place] [address] 16 Jul, 2013 [facility] [address] [id number] [address] [place] [address], [place] [address] 16 Jul, 2013 [facility] [address] [id number] [address] [place] [address], [place] [address] 15 Jul, 2014 [facility] [address] [id number] [address] [place] [address], [place] [address] 12 Jul, 2014 [facility] [address] [id number] [facility] [place] [address] 12 Jul, 2014 [facility] [address] [id number] [facility] [place] [address] Jul, [facility] [address] [id number] [facility] [place] [address] Jul, [facility] [address] [id number] [facility] [place] [address] Jul, [facility] [address] [id number] [facility] [place] [address] Jul, [facility] [address] [id number] [address] [place] [address], [place] [address] Jul, [facility] [address] [id number] [facility] [place] [address] Jul, [facility] [address] [id number] [address] [place] [address], [place] [address] Jun, [facility] [address] [id number] [address] [place] [address], [place] [address] Jun, [facility] [address] [id number] [address] [place] [address], [place] [address] Jun, [facility] [address] [id number] [address] [place] [address], [place] [address] Jun, [facility] [address] [id number] [address] [place] [address], [place] [address] Jun, [facility] [address] [id number] [address] [place] [address], [place] [address] Jun, [facility] [address] [id number] [address] [place] [address], [place] [address] Jun, [facility] [address] [id number] [facility] [place] [address] Jun, [facility] [address] [id number] [address] [place] [address], [place] [address] May, [facility] [address] [id number] [address] [place] [address], [place] [address] May, [facility] [address] [id number] [address] [place] [address], [place] [address] Apr, [facility] [address] [id number] [address] [place] [address], [place] [address] Apr, [facility] [address] [id number] [address] [place] [address], [place] [address] Apr, [facility] [address] [id number] [address] [place] [address], [place] [address] Apr, [facility] [address] [id number] [address] [place] [address], [place] [address] March, [facility] [address] [id number] [address] [place] [address], [place] [address] March, [facility] [address] [id number] [address] [place] [address], [place] [address] March, [facility] [address] [id number] [address] [place] [address], [place] [address] March, [facility] [address] [id number] [address] [place] [address], [place] [address] March, [facility] [address] [id number] [address] [place] [address], [place] [address] March, [facility] [address] [id number] [address] [place] [address], [place] [address] March, [facility] [address] [id number] [address] [place] [address], [place] [address] March, [facility] [address] [id number] [address] [place] [address], [place] [address] March, [facility] [address] [id number] [address] [place] [address], [place] [address] March, [facility] [address] [id number] [address] [place] [address], [place] [address] March, [facility] [address] [id number] [address] [place] [address], [place] [address] Nov, [facility] [address] [id number] [address] [place] [address], [place] [address] Nov, [facility] [address] [id number] [address] [place] [address], [place] [address] Nov, [facility] [address] [id number] [address] [place] [address], [place] [address] Oct, [facility] [address] [id number] [address] [place] [address], [place] [address] Oct, [facility] [address] [id number] [address] [place] [address], [place] [address] Aug, [facility] [address] [id number] [address] [place] [address], [place] [address] Aug, [facility] [place] [address] [id number] [place] [id number] Jun, [facility] [place] [address] [id number] [place] [id number] Apr, [facility] [address] [id number] [address] [place] [address], [place] [address] Apr, [facility] [address] [id number] [address] [place] [address], [place] [address] Apr, [facility] [place] [address] [id number] [place] [id number] March, [facility] [place] [address] [id number] [place] [id number] Feb, [facility] [place] [address] [id number] [place] [id number] Jan, [facility] [address] [id number] [address] [place] [address], [place] [address] Jan, [facility] [address] [id number] [address] [place] [address], [place] [address] Jan, [facility] [address] [id number] [address] [place] [address], [place] [address] Jan, [facility] [place] [address] [id number] [place] [id number] Dec, [facility] [place] [address] [id number] [place] [id number] Dec, [facility] [address] [id number] [address] [place] [address], [place] [address] Dec, [facility] [address] [id number] [address] [place] [address], [place] [address] Dec, [facility] [address] [facility] [id number] [address] [place] [address], [place] [address] Dec, [facility] [address] [facility] [id number] [address] [place] [address], [place] [address] Nov, [facility] [address] [id number] [address] [place] [address], [place] [address] Nov, [facility] [place] [address] [id number] [place] [id number] Nov, [facility] [address] [facility] [id number] [address] [place] [address], [place] [address] Nov, [facility] [place] [address] [id number] [place] [id number] Nov, [facility] [place] [address] [id number] [place] [id number] Nov, [facility] [place] [address] [id number] [place] [id number] Oct, [facility] [place] [address] [id number] [place] [id number] Oct, [facility] [address] [id number] [address] [place] [address], [place] [address] Oct, [facility] [address] [id number] [address] [place] [address] Oct, [facility] [address] [facility] [id number] [address] [place] [address] Oct, [facility] [address] [facility] [id number] [address] [place] [address] Sep, [facility] [address] [facility] [id number] [address] [place] [address] Sep, [facility] [place] [address] [id number] [place] [id number] Sep, [facility] [place] [address] [id number] [place] [id number] Sep, [facility] [place] [address] [id number] [place] [id number] Sep, [facility] [address] [facility] [id number] [address] [place] [address] Sep, [facility] [address] [facility] [id number] [address] [place] [address] Aug, [facility] [place] [address] [id number] [place] [id number] Aug, [facility] [address] [facility] [id number] [address] [place] [address] Aug, [facility] [place] [address] [id number] [place] [id number] Jul, [facility] [place] [address] [id number] [place] [id number] Jul, [facility] [place] [address] [id number] [place] [id number] Jun, [facility] [place] [address] [id number] [place] [id number] May, [facility] [place] [address] [id number] [place] [id number] Feb, [facility] [place] [address] [id number] [place] [id number] Feb, [facility] [place] [address] [id number] [place] [id number] Feb, [facility] [address] [id number] [place] [id number] Dec, [facility] [address] [id number] [place] [id number] Dec, [facility] [address] [id number] [address] [place] [address] Oct, [facility] [address] [id number] [address] [place] [address] Sep, [facility] [address] [id number] [address] [place] [address] Sep, [facility] [address] [id number] [address] [place] [address] Sep, [facility] [address] [id number] [address] [place] [address] Sep, [facility] [address] [id number] [address] [place] [address] March, [facility] [address] [id number] [address] [place] [id number] Sep, [facility] [address] [id number] [address] [place] [phone] Jul, [facility] [address] [id number] [address] [place] [phone] May, [facility] [address] [id number] [address] [place] [phone] Jan, [facility] [address] [id number] [address] [place] [id number] Sep, [facility] [address] [id number] [address] [place] [id number] Aug, IMMUNIZATIONS No Known Immunizations SOCIAL HISTORY [...] stents in heart Hospitalization History Pelvic Inflammatory Disease-VC 09/22 Hospitalization History 2 inpatient psychiatric treatments, suicide attempts
--- OUTSIDE RECORDS SUMMARY | 2020-05-31 11:45 | XMS REPORT ---
Author Author Jeane Camacho Doctor Organization [facility] Address Unknown Phone Unavailable Care Team Providers Care Purchasing Buyer Name Role Phone Migration, Doctor Unavailable Unavailable PROBLEMS Type Condition ICD9-CM Code MSF01-UI Code Onset Dates Condition S tatus SNOMED Code Problem Depression F32.9 Active 71200261 Problem Anxiety F41.9 Active 88728214 Problem Environmental allergies Z91.09 Active 445687305 Problem Atherosclerotic 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 Active 558610222 Problem Lumbago with sciatica, unspecified side M54.40 Active 500185109 Problem Chronic pain syndrome G89.4 Active 189226749 Problem Hypercholesterolemia with hypertriglyceridemia E78 .2 Active 276626072 Problem Major depressive disorder, recurrent sev ere without psychotic features F33.2 Active 34045616 Problem Dysthymia (or depressive neurosis) F34.1 Active 81462389 Problem Cigarette nicotine dependence without complication F17.210 Active 50800208 Problem Alcohol use disorder, moderate, in sustained remission F10.21 Active 14418837 Problem Cannabis use disorder, mild, abuse F12.10 Active 66733656 Problem Elevated blood pressure I10 Active 29510102 ALLERGIES No Information ENCOUNTERS Encounter Location Date Diagnosis [facility] [address] [id number] [address] [place] [address] Dec, Major depressive disorder, r ecurrent severe without psychotic features F33.2 ; Chronic pain syndrome G89.4 and Encounter for immunization Z23 [facility] [address] [id number] [place] [id number] Aug, Elevated blood pressure I10 [facility] [address] [facility] [id number] [address] [place] [address] May, Hypercholesterolemia with hy pertriglyceridemia E78.2 and Atherosclerotic heart disease of [place] coronary 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 [facility] [address] [facility] [id number] [address] [place] [address] March, Lumbago with sciatica, unspe cified side M54.40 ; Environmental allergies Z91.09 ; Hypercholesterolemia with hypertriglyceridemia E78.2 and Atherosclerotic heart disease of [place] coronary 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 [facility] [address] [id number] [address] [place] [address] 14 Dec, 2017 Severe episode of recurrent major depressive disorder, without psychotic features F33.2 ; Alcohol use disorder, moderate, in sustained remission F10.21 and Cannabis use disorder, mild, abuse F12.10 [facility] [address] [facility] [id number] [address] [place] [address] 12 Dec, 2017 Severe episode of recurrent major depressive disorder, without psychotic features F33.2 [place] [address] [facility] [id number] [address] [place] [address] Nov, [place] [address] [id number] [address] [place] [address] 08 Nov, 2017 Atherosclerotic 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 ; Hypercholesterolemia with hypertriglyceridemia E78.2 ; Depression F32.9 and Cigarette nicotine dependence without complication F17.210 [place] [address] [facility] [id number] [address] [place] [address] Oct, [facility] [address] [id number] [address] [place] [address] Jul, [facility] [address] [id number] [address] [place] [address] Jun, [facility] [address] [id number] [address] [place] [address] Apr, Pain in thoracic spine M54.6 and Lumbago with sciatica, unspecified side M54.40 [facility] [address] [id number] [address] [place] [address] March, [place] [address] [facility] [id number] [address] [place] [address] March, Depression F32.9 [place] [address] [facility] [id number] [address] [place] [address] March, Anxiety F41.9 ; Depression F 32.9 ; Atherosclerotic heart disease of [place] coronary 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 ; Hypercholesterolemia with hypertriglyceridemia E78.2 ; Right wrist tendonitis M77.8 and Environmental allergies Z91.09 [facility] [address] [id number] [place] [facility] [id number] Dec, [place] [address] [id number] [address] [place] [address] Nov, Iron deficiency anemia, unsp ecified iron deficiency anemia type D50.9 ; Anxiety F41.9 ; Dysthymia (or depressive neurosis) F34.1 and Hypercholesterolemia with hypertriglyceridemia E78.2 [place] [id number] [address] [place] [address] Oct, [place] [address] [address] Oct, [address] [address] Oct, Dysthymia (or depressive sherice rosis) F34.1 ; Atherosclerotic heart disease of [place] coronary 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 ; Coronary atherosclerosis due to lipid rich plaque I25.83 ; Hypercholesterolemia with hypertriglyceridemia E78.2 ; Iron deficiency anemia, unspecified iron deficiency anemia type D50.9 ; Hospital discharge follow-up Z09 ; History of PID Z87.42 ; Environmental allergies Z91.09 and Dysuria R30.0 [place] [address] [id number] [address] [place] [address] Sep, [place] [address] [address] Sep, [place] [address] [id number] [address] [place] [address] Aug, Dysthymia F34.1 and Anxiety F41.9 [place] [address] [place] [id number] [address] [place] [address] March, Coronary artery disease invo lving [place] coronary artery, angina presence unspecified, unspecified whether [place] or transplanted heart I25.10 ; Bipolar 1 disorder, depressed F31.9 ; Anxiety F41.9 and Dysthymia F34.1 [place] [address] [address] 04 Feb, 2016 Depression F32.9 and Stomach pain R10.9 [place] [address] [address] Jan, Hyperlipidemia 272.4 [place] [address] [address] 17 Dec, 2015 [place] [address] [address] 11 Dec, 2015 Major depressive disorder, r ecurrent episode, unspecified 296.30 ; Anxiety F41.9 ; Grief F43.20 and Dysthymia F34.1 [place] [address] [address] Dec, Anxiety F41.9 and Grief F43. 20 [place] [address] [address] Oct, Insomnia, unspecified G47.00 and Anxiety F41.9 [place] [address] [address] Oct, Dysthymia F34.1 ; Right shou lder pain M25.511 ; Sciatica, right M54.31 and Iron deficiency anemia, unspecified iron deficiency anemia type D50.9 [place] [address] [address] Sep, [place] [address] [address] Sep, Grief F43.20 [place] [address] [id number] [address] [place] [address] Sep, [facility] [address] [address] Sep, [facility] [id number] [place] [address] Sep, Hyperlipidemia E78.5 ; CAD ( coronary artery disease) I25.10 and HTN (hypertension) I10 [facility] [address] [address] Aug, Allergic rhinitis, unspecifi ed allergic rhinitis type J30.9 [facility] [address] [address] Aug, Left-sided low back pain wit h right-sided sciatica M54.41 and Hyperlipidemia, unspecified hyperlipidemia E78.5 [facility] [address] [address] Aug, Neck pain M54.2 and Low back pain M54.5 [facility] [address] [address] Jun, [facility] [address] [address] Jun, [facility] [address] [address] Jun, CAD (coronary artery disease ) 414.00 ; Hyperlipidemia 272.4 and Anemia 285.9 [facility] [address] [address] Feb, [facility] [id number] [place] [address] Feb, [facility] [address] [id number] [address] [place] [address] Jan, [facility] [id number] [place] [address] Jan, [facility] [address] [id number] [address] [place] [address], [place] [address] Jan, [facility] [address] [id number] [address] [place] [address], [place] [address] Jan, [facility] [address] [id number] [address] [place] [address], [place] [address] Dec, 2014 [facility] [address] [id number] [address] [place] [address], [place] [address] Dec, 2014 [facility] [address] [id number] [address] [place] [address], [place] [address] Dec, 2014 [facility] [address] [id number] [address] [place] [address], [place] [address] Dec, 2014 [facility] [address] [id number] [address] [place] [address], [place] [address] Dec, 2014 [facility] [address] [id number] [address] [place] [address], [place] [address] Dec, 2014 [facility] [address] [id number] [address] [place] [address], [place] [address] Dec, 2014 [facility] [address] [id number] [address] [place] [address], [place] [address] Dec, [facility] [address] [id number] [address] [place] [address], [place] [address] Dec, 2014 [facility] [address] [id number] [address] [place] [address], [place] [address] Dec, 2014 [facility] [address] [id number] [address] [place] [address], [place] [address] Dec, 2014 [facility] [address] [id number] [address] [place] [address] Dec, 2014 [facility] [address] [id number] [address] [place] [address] Nov, [facility] [address] [id number] [address] [place] [address], [place] [address] Nov, [facility] [address] [id number] [address] [place] [address], [place] [address] Nov, [facility] [address] [id number] [address] [place] [address], [place] [address] Nov, [facility] [address] [id number] [address] [place] [address], [place] [address] Oct, [facility] [address] [id number] [address] [place] [address], [place] [address] Oct, [facility] [address] [id number] [address] [place] [address], [place] [address] Sep, [facility] [address] [id number] [address] [place] [address], [place] [address] Sep, [facility] [address] [id number] [address] [place] [address], [place] [address] Aug, [facility] [address] [id number] [address] [place] [address], [place] [address] Aug, [facility] [address] [id number] [address] [place] [address], [place] [address] 30 Jul, 2014 [facility] [address] [id number] [address] [place] [address], [place] [address] 30 Jul, 2014 [facility] [address] [id number] [address] [place] [address], [place] [address] 16 Jul, 2013 [facility] [address] [id number] [address] [place] [address], [place] [address] 16 Jul, 2014 [facility] [address] [id number] [address] [place] [address], [place] [address] 15 Jul, 2014 [facility] [address] [id number] [address] [place] [address], [place] [address] 12 Jul, 2014 [facility] [address] [id number] [address] [place] [address], [place] [address] Jul, [facility] [address] [id number] [facility] [place] [address] Jul, [facility] [address] [id number] [facility] [place] [address] Jul, [facility] [address] [id number] [facility] [place] [address] Jul, [facility] [address] [id number] [address] [place] [address], [place] [address] Jul, [facility] [address] [id number] [address] [place] [address], [place] [address] Jul, [facility] [address] [id number] [address] [place] [address], [place] [address] Jul, [facility] [address] [id number] [address] [place] [address], [place] [address] Jun, [facility] [address] [id number] [address] [place] [address], [place] [address] Jun, [facility] [address] [id number] [address] [place] [address], [place] [address] Jun, [facility] [address] [id number] [address] [place] [address], [place] [address] Jun, [facility] [address] [id number] [address] [place] [address], [place] [address] Jun, [facility] [address] [id number] [address] [place] [address], [place] [address] Jun, [facility] [address] [id number] [address] [place] [address], [place] [address] Jun, [facility] [address] [id number] [address] [place] [address], [place] [address] Jun, [facility] [address] [id number] [address] [place] [address], [place] [address] May, [facility] [address] [id number] [facility] [place] [address] May, [facility] [address] [id number] [facility] [place] [address] Apr, [facility] [address] [id number] [facility] [place] [address] Apr, [facility] [address] [id number] [address] [place] [address], [place] [address] Apr, [facility] [address] [id number] [facility] [place] [address] Apr, [facility] [address] [id number] [address] [place] [address], [place] [address] March, [facility] [address] [id number] [address] [place] [address], [place] [address] March, [facility] [address] [id number] [address] [place] [address], [place] [address] March, [facility] [address] [id number] [address] [place] [address], [place] [address] March, [facility] [address] [id number] [address] [place] [address], [place] [address] March, [facility] [address] [id number] [address] [place] [address], [place] [address] March, [facility] [address] [id number] [address] [place] [address], [place] [address] March, [facility] [address] [id number] [address] [place] [address], [place] [address] March, [facility] [address] [id number] [address] [place] [address], [place] [address] March, [facility] [address] [id number] [address] [place] [address], [place] [address] March, [facility] [address] [id number] [address] [place] [address], [place] [address] March, [facility] [address] [id number] [address] [place] [address], [place] [address] Nov, [facility] [address] [id number] [address] [place] [address], [place] [address] Nov, [facility] [address] [id number] [address] [place] [address], [place] [address] Nov, [facility] [address] [id number] [address] [place] [address], [place] [address] Oct, [facility] [address] [id number] [address] [place] [address], [place] [address] Oct, [facility] [address] [id number] [address] [place] [address], [place] [address] Aug, [facility] [address] [id number] [address] [place] [address], [place] [address] Aug, [facility] [address] [id number] [place] [id number] Jun, [facility] [place] [address] [id number] [place] [id number] Apr, [facility] [address] [id number] [address] [place] [address], [place] [address] Apr, [facility] [address] [id number] [address] [place] [address], [place] [address] Apr, [facility] [place] [address] [id number] [place] [id number] March, [facility] [place] [address] [id number] [place] [id number] Feb, [facility] [place] [address] [id number] [place] [id number] Jan, [facility] [address] [id number] [address] [place] [address], [place] [address] Jan, [facility] [address] [id number] [address] [place] [address], [place] [address] Jan, [facility] [address] [id number] [address] [place] [address], [place] [address] Jan, [facility] [place] [address] [id number] [place] [id number] Dec, [facility] [place] [address] [id number] [place] [id number] Dec, [facility] [address] [id number] [address] [place] [address], [place] [address] Dec, [facility] [address] [id number] [address] [place] [address], [place] [address] Dec, [facility] [address] [id number] [address] [place] [address], [place] [address] Dec, [facility] [address] [facility] [id number] [address] [place] [address], [place] [address] Nov, [facility] [address] [id number] [address] [place] [address], [place] [address] Nov, [facility] [place] [address] [id number] [place] [id number] Nov, [facility] [address] [id number] [address] [place] [address], [place] [address] Nov, [facility] [place] [address] [id number] [place] [id number] Nov, [facility] [place] [address] [id number] [place] [id number] Nov, [facility] [place] [address] [id number] [place] [id number] Oct, [facility] [place] [address] [id number] [place] [id number] Oct, [facility] [address] [id number] [address] [place] [address], [place] [address] Oct, [facility] [address] [id number] [address] [place] [address], [place] [address] Oct, [facility] [address] [id number] [address] [place] [address] Oct, [facility] [address] [facility] [id number] [address] [place] [address] Sep, [facility] [address] [facility] [id number] [address] [place] [address] Sep, [facility] [place] [address] [id number] [place] [id number] Sep, [facility] [place] [address] [id number] [place] [id number] Sep, [facility] [place] [address] [id number] [place] [id number] Sep, [facility] [address] [facility] [id number] [address] [place] [address] Sep, [facility] [address] [facility] [id number] [address] [place] [address] Aug, [facility] [place] [address] [id number] [place] [id number] Aug, [facility] [address] [facility] [id number] [address] [place] [address] Aug, [facility] [place] [address] [id number] [place] [id number] Jul, [facility] [place] [address] [id number] [place] [id number] Jul, [facility] [place] [address] [id number] [place] [id number] Jun, [facility] [place] [address] [id number] [place] [id number] May, [facility] [place] [address] [id number] [place] [id number] Feb, [facility] [place] [address] [id number] [place] [id number] Feb, [facility] [place] [address] [id number] [place] [id number] Feb, [facility] [place] [address] [id number] [place] [id number] Dec, [facility] [address] [id number] [place] [id number] Dec, [facility] [address] [id number] [address] [place] [address] Oct, [facility] [address] [id number] [address] [place] [id number] Sep, [facility] [address] [id number] [address] [place] [id number] Sep, [facility] [address] [id number] [address] [place] [id number] Sep, [facility] [address] [id number] [address] [place] [id number] Sep, [facility] [address] [id number] [address] [place] [id number] March, [facility] [address] [id number] [address] [place] [id number] Sep, [facility] [address] [id number] [address] [place] [id number] Jul, [facility] [address] [id number] [address] [place] [phone] May, [facility] [address] [id number] [address] [place] [id number] Jan, [facility] [address] [id number] [address] [place] [id number] Sep, [facility] [address] [id number] [address] [place] [id number] Aug, IMMUNIZATIONS No Known Immunizations SOCIAL HISTORY [...] stents in heart Hospitalization History Pelvic Inflammatory Disease-[facility] 09/22 Hospitalization History 2 inpatient psychiatric treatments, suicide attempts
--- OUTSIDE RECORDS SUMMARY | 2020-05-31 11:45 | XMS REPORT ---
Author Author Jeane WOLFF Organization [facility] Address [address] [place] [address] Care Team Providers Care Preparer Samples And Repairs Name Role Phone NIKA WOLFF Unavailable PROBLEMS Type Condition ICD9-CM Code IKM39-ER Code Onset Dates Condition S tatus SNOMED Code Problem Depression F32.9 Active 97320884 Problem Anxiety F41.9 Active 74078812 Problem Environmental allergies Z91.09 Active 427375621 Problem Atherosclerotic heart diseas e of [place] coronary 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 Active 070124414 Problem Lumbago with sciatica, unspecified side M54.40 Active 103555643 Problem Chronic pain syndrome G89.4 Active 891857770 Problem Hypercholesterolemia with hypertriglyceridemia E78 .2 Active 454040154 Problem Major depressive disorder, recurrent sev ere without psychotic features F33.2 Active 98293485 Problem Dysthymia (or depressive neurosis) F34.1 Active 50448683 Problem Cigarette nicotine dependence without complication F17.210 Active 66228024 Problem Alcohol use disorder, moderate, in sustained remission F10.21 Active 85820248 Problem Cannabis use disorder, mild, abuse F12.10 Active 75521415 Problem Elevated blood pressure I10 Active 32810151 ALLERGIES No Information ENCOUNTERS Encounter Location Date Diagnosis [facility] [address] [facility] [place] [id number] [address] [place] [id number] Dec, Major depressive disorder, r ecurrent severe without psychotic features F33.2 ; Chronic pain syndrome G89.4 and Encounter for immunization Z23 [facility] [place] [address] [id number] [place] [id number] Aug, Elevated blood pressure I10 [facility] [address] [facility] [place] [facility] [id number] [address] [place] [address] May, Hypercholesterolemia with hy pertriglyceridemia E78.2 and Atherosclerotic heart disease of [place] coronary 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 [facility] [address] [facility] [place] [facility] [id number] [address] [place] [address] 11 Mar, 2018 Lumbago with sciatica, unspe cified side M54.40 ; Environmental allergies Z91.09 ; Hypercholesterolemia with hypertriglyceridemia E78.2 and Atherosclerotic heart disease of [place] coronary 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 [facility] [address] [facility] [place] [facility] [id number] [address] [place] [address] 14 Dec, 2017 Severe episode of recurrent major depressive disorder, without psychotic features F33.2 ; Alcohol use disorder, moderate, in sustained remission F10.21 and Cannabis use disorder, mild, abuse F12.10 [facility] [address] [facility] [place] [id number] [address] [place] [address] 12 Dec, 2017 Severe episode of recurrent major depressive disorder, without psychotic features F33.2 [facility] [address] [facility] [place] [facility] [id number] [address] [place] [address] 18 Nov, 2017 [facility] [address] [facility] [place] [id number] [address] [place] [address] 08 Nov, 2017 Atherosclerotic heart diseas e of [place] coronary 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 ; Hypercholesterolemia with hypertriglyceridemia E78.2 ; Depression F32.9 and Cigarette nicotine dependence without complication F17.210 [facility] [address] [facility] [place] [id number] [address] [place] [address] Oct, [facility] [address] [id number] [address] [place] [address] Jul, [facility] [address] [facility] [place] [id number] [address] [place] [address] Jun, [facility] [address] [facility] [place] [id number] [address] [place] [address] Apr, Pain in thoracic spine M54.6 and Lumbago with sciatica, unspecified side M54.40 [facility] [address] [facility] [place] [id number] [address] [place] [address] March, [place] [address] [place] [id number] [address] [place] [address] March, Depression F32.[address] [address] March, Anxiety F41.9 ; Depression F 32.9 ; Atherosclerotic heart disease of [place] coronary 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 ; Hypercholesterolemia with hypertriglyceridemia E78.2 ; Right wrist tendonitis M77.8 and Environmental allergies Z91.09 [facility] [place] [address] [id number] [place] [id number] Dec, [address] [address] Nov, Iron deficiency anemia, unsp ecified iron deficiency anemia type D50.9 ; Anxiety F41.9 ; Dysthymia (or depressive neurosis) F34.1 and Hypercholesterolemia with hypertriglyceridemia E78.[address] [address] 14 Oct, [address] [address] Oct, [address] [address] Oct, Dysthymia (or depressive sherice rosis) F34.1 ; Atherosclerotic heart disease of [place] coronary 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 ; Coronary atherosclerosis due to lipid rich plaque I25.83 ; Hypercholesterolemia with hypertriglyceridemia E78.2 ; Iron deficiency anemia, unspecified iron deficiency anemia type D50.9 ; Hospital discharge follow-up Z09 ; History of PID Z87.42 ; Environmental allergies Z91.09 and Dysuria R30.[address] [address] Sep, [address] [address] Sep, [address] [address] Aug, Dysthymia F34.1 and Anxiety F41.9 [place] [address] [address] March, Coronary artery disease invo lving [place] coronary artery, angina presence unspecified, unspecified whether [place] or transplanted heart I25.10 ; Bipolar 1 disorder, depressed F31.9 ; Anxiety F41.9 and Dysthymia F34.1 [place] [address] [address] 04 Feb, 2016 Depression F32.9 and Stomach pain R10.9 [place] [address] [address] Jan, Hyperlipidemia 272.4 [place] [address] [address] 17 Dec, 2015 [place] [address] [address] Dec, Major depressive disorder, r ecurrent episode, unspecified 296.30 ; Anxiety F41.9 ; Grief F43.20 and Dysthymia F34.1 [place] [address] [address] Dec, Anxiety F41.9 and Grief F43. 20 [place] [address] [address] Oct, Insomnia, unspecified G47.00 and Anxiety F41.9 [place] [address] [address] Oct, Dysthymia F34.1 ; Right shou lder pain M25.511 ; Sciatica, right M54.31 and Iron deficiency anemia, unspecified iron deficiency anemia type D50.9 [place] [address] [address] Sep, [place] [address] [address] Sep, Grief F43.20 [facility] [address] [address] Sep, [facility] [address] [address] Sep, [facility] [address] [address] Sep, Hyperlipidemia E78.5 ; CAD ( coronary artery disease) I25.10 and HTN (hypertension) I10 [facility] [address] [address] Aug, Allergic rhinitis, unspecifi ed allergic rhinitis type J30.9 [place] [address] [address] Aug, Left-sided low back pain wit h right-sided sciatica M54.41 and Hyperlipidemia, unspecified hyperlipidemia E78.5 [facility] [address] [address] Aug, Neck pain M54.2 and Low back pain M54.5 [facility] [address] [address] Jun, [facility] [address] [address] Jun, [facility] [address] [address] Jun, CAD (coronary artery disease ) 414.00 ; Hyperlipidemia 272.4 and Anemia 285.9 [facility] [address] [address] Feb, [facility] [address] [address] Feb, [facility] [address] [address] Jan, [facility] [address] [id number] [address] [place] [address], [place] [address] Jan, [facility] [address] [id number] [address] [place] [address], [place] [address] Jan, [facility] [address] [id number] [address] [place] [address], [place] [address] Jan, [facility] [address] [id number] [address] [place] [address], [place] [address] Dec, 2014 [facility] [address] [id number] [address] [place] [address], [place] [address] Dec, 2014 [facility] [address] [id number] [address] [place] [address], [place] [address] Dec, 2014 [facility] [address] [id number] [address] [place] [address], [place] [address] Dec, 2014 [facility] [address] [id number] [address] [place] [address], [place] [address] Dec, 2014 [facility] [address] [id number] [address] [place] [address], [place] [address] Dec, 2014 [facility] [address] [id number] [address] [place] [address], [place] [address] Dec, 2014 [facility] [address] [id number] [address] [place] [address], [place] [address] Dec, 2014 [facility] [address] [id number] [address] [place] [address], [place] [address] 12 Dec, 2014 [facility] [address] [id number] [address] [place] [address], [place] [address] Dec, 2014 [facility] [address] [id number] [address] [place] [address], [place] [address] 05 Dec, 2014 [facility] [address] [id number] [address] [place] [address], [place] [address] 05 Fe2014 [facility] [address] [id number] [address] [place] [address], [place] [address] Nov, [facility] [address] [id number] [address] [place] [address], [place] [address] Nov, [facility] [address] [id number] [address] [place] [address], [place] [address] Nov, [facility] [address] [id number] [address] [place] [address], [place] [address] Nov, [facility] [address] [id number] [address] [place] [address], [place] [address] Oct, [facility] [address] [id number] [address] [place] [address], [place] [address] Oct, [facility] [address] [id number] [address] [place] [address], [place] [address] Sep, [facility] [address] [id number] [address] [place] [address], [place] [address] Sep, [facility] [address] [id number] [address] [place] [address], [place] [address] Aug, [facility] [address] [id number] [address] [place] [address], [place] [address] 03 Aug, 2014 [facility] [address] [id number] [address] [place] [address], [place] [address] 30 Jul, 2014 [facility] [address] [id number] [address] [place] [address], [place] [address] 30 Jul, 2013 [facility] [address] [id number] [address] [place] [address], [place] [address] 16 Jul, 2014 [facility] [address] [id number] [address] [place] [address], [place] [address] 16 Jul, 2013 [facility] [address] [id number] [address] [place] [address], [place] [address] 15 Jul, 2014 [facility] [address] [id number] [address] [place] [address], [place] [address] Jul, [facility] [address] [id number] [facility] [place] [address] 12 Jul, 2014 [facility] [address] [id number] [address] [place] [address], [place] [address] Jul, [facility] [address] [id number] [address] [place] [address], [place] [address] Jul, [facility] [address] [id number] [address] [place] [address], [place] [address] Jul, [facility] [address] [id number] [address] [place] [address], [place] [address] Jul, [facility] [address] [id number] [address] [place] [address], [place] [address] Jul, [facility] [address] [id number] [address] [place] [address], [place] [address] Jul, [facility] [address] [id number] [address] [place] [address], [place] [address] Jun, [facility] [address] [id number] [address] [place] [address], [place] [address] Jun, [facility] [address] [id number] [address] [place] [address], [place] [address] Jun, [facility] [address] [id number] [address] [place] [address], [place] [address] Jun, [facility] [address] [id number] [address] [place] [address], [place] [address] Jun, [facility] [address] [id number] [address] [place] [address], [place] [address] Jun, [facility] [address] [id number] [address] [place] [address], [place] [address] Jun, [facility] [address] [id number] [address] [place] [address], [place] [address] Jun, [facility] [address] [id number] [facility] [place] [address] May, [facility] [address] [id number] [address] [place] [address], [place] [address] May, [facility] [address] [id number] [address] [place] [address], [place] [address] Apr, [facility] [address] [id number] [address] [place] [address], [place] [address] Apr, [facility] [address] [id number] [address] [place] [address], [place] [address] Apr, [facility] [address] [id number] [address] [place] [address], [place] [address] Apr, [facility] [address] [id number] [address] [place] [address], [place] [address] March, [facility] [address] [id number] [address] [place] [address], [place] [address] March, [facility] [address] [id number] [address] [place] [address], [place] [address] March, [facility] [address] [id number] [address] [place] [address], [place] [address] March, [facility] [address] [id number] [address] [place] [address], [place] [address] March, [facility] [address] [id number] [address] [place] [address], [place] [address] March, [facility] [address] [id number] [address] [place] [address], [place] [address] March, [facility] [address] [id number] [address] [place] [address], [place] [address] March, [facility] [address] [id number] [address] [place] [address], [place] [address] March, [facility] [address] [id number] [address] [place] [address], [place] [address] March, [facility] [address] [id number] [address] [place] [address], [place] [address] March, [facility] [address] [id number] [address] [place] [address], [place] [address] Nov, [facility] [address] [id number] [address] [place] [address], [place] [address] Nov, [facility] [address] [id number] [address] [place] [address], [place] [address] Nov, [facility] [address] [id number] [address] [place] [address], [place] [address] Oct, [facility] [address] [id number] [address] [place] [address], [place] [address] Oct, [facility] [address] [id number] [address] [place] [address], [place] [address] Aug, [facility] [address] [id number] [address] [place] [address] Aug, [facility] [address] [id number] [place] [id number] Jun, [facility] [address] [id number] [place] [id number] Apr, [facility] [address] [id number] [address] [place] [address] Apr, [facility] [address] [id number] [address] [place] [address], [place] [address] Apr, [facility] [place] [address] [id number] [place] [id number] March, [facility] [place] [address] [id number] [place] [id number] Feb, [facility] [place] [address] [id number] [place] [id number] Jan, [facility] [address] [id number] [address] [place] [address], [place] [address] Jan, [facility] [address] [id number] [address] [place] [address], [place] [address] Jan, [facility] [address] [id number] [address] [place] [address], [place] [address] Jan, [facility] [place] [address] [id number] [place] [id number] Dec, [facility] [place] [address] [id number] [place] [id number] Dec, [facility] [address] [id number] [address] [place] [address], [place] [address] Dec, [facility] [address] [facility] [place] [id number] [address] [place] [address], [place] [address] Dec, [facility] [address] [facility] [place] [id number] [address] [place] [address], [place] [address] Dec, [facility] [address] [facility] [place] [id number] [address] [place] [address], [place] [address] Nov, [facility] [address] [id number] [address] [place] [address] Nov, [facility] [place] [address] [id number] [place] [id number] Nov, [facility] [address] [facility] [place] [id number] [address] [place] [address] Nov, [facility] [place] [address] [id number] [place] [id number] Nov, [facility] [place] [address] [id number] [place] [id number] Nov, [facility] [place] [address] [id number] [place] [id number] Oct, [facility] [place] [address] [id number] [place] [id number] Oct, [facility] [address] [id number] [address] [place] [address] Oct, [facility] [address] [id number] [address] [place] [address] Oct, [facility] [address] [facility] [place] [id number] [address] [place] [address] Oct, [facility] [address] [facility] [place] [id number] [address] [place] [address] Sep, [facility] [address] [facility] [place] [id number] [address] [place] [address] Sep, [facility] [address] [id number] [place] [id number] Sep, [facility] [address] [id number] [place] [id number] Sep, [facility] [place] [address] [id number] [place] [id number] Sep, [facility] [address] [facility] [place] [id number] [address] [place] [address] Sep, [facility] [address] [facility] [place] [id number] [address] [place] [address] Aug, [facility] [address] [id number] [place] [id number] Aug, [facility] [address] [facility] [place] [id number] [address] [place] [address] Aug, [facility] [place] [address] [id number] [place] [id number] Jul, [facility] [address] [id number] [place] [id number] Jul, [facility] [address] [id number] [place] [id number] Jun, [facility] [place] [address] [id number] [place] [id number] May, [facility] [place] [address] [id number] [place] [id number] Feb, [facility] [place] [address] [id number] [place] [id number] Feb, [facility] [place] [address] [id number] [place] [id number] Feb, [facility] [place] [address] [id number] [place] [id number] Dec, [facility] [address] [id number] [place] [id number] Dec, [facility] [address] [id number] [address] [place] [address] Oct, [facility] [address] [id number] [address] [place] [id number] Sep, [facility] [address] [id number] [address] [place] [id number] Sep, [facility] [address] [id number] [address] [place] [id number] Sep, [facility] [address] [id number] [address] [place] [id number] Sep, [facility] [address] [id number] [address] [place] [id number] March, [facility] [address] [id number] [address] [place] [id number] Sep, [facility] [address] [facility] [place] [id number] [address] [place] [id number] Jul, [facility] [address] [id number] [address] [place] [id number] May, [facility] [address] [id number] [address] [place] [id number] Jan, [facility] [address] [id number] [address] [place] [id number] Sep, [facility] [address] [facility] [place] [id number] [address] [place] [id number] Aug, IMMUNIZATIONS No Known Immunizations SOCIAL HISTORY [...]
--- OUTSIDE RECORDS SUMMARY | 2020-05-31 11:46 | XMS REPORT ---
Author Author Janice Jeane Doctor Organization [facility] Address Unknown Phone Unavailable Care Team Providers Care Histological Illustrator Name Role Phone Migration, Doctor Unavailable Unavailable PROBLEMS Type Condition ICD9-CM Code [id number] Code Onset Dates Condition S tatus SNOMED Code Problem Depression F32.9 Active 32355781 Problem Anxiety F41.9 Active 19320157 Problem Environmental allergies Z91.09 Active 217654185 Problem Atherosclerotic 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 Active 436540200 Problem Lumbago with sciatica, unspecified side M54.40 Active 049465351 Problem Chronic pain syndrome G89.4 Active 020514228 Problem Hypercholesterolemia with hypertriglyceridemia E78 .2 Active 271627250 Problem Major depressive disorder, recurrent sev ere without psychotic features F33.2 Active 31945032 Problem Dysthymia (or depressive neurosis) F34.1 Active 42308942 Problem Cigarette nicotine dependence without complication F17.210 Active 26695820 Problem Alcohol use disorder, moderate, in sustained remission F10.21 Active 73382847 Problem Cannabis use disorder, mild, abuse F12.10 Active 96879988 Problem Elevated blood pressure I10 Active 27598073 ALLERGIES No Information ENCOUNTERS Encounter Location Date Diagnosis [facility] [address] [id number] [address] [place] [id number] Dec, Major depressive disorder, r ecurrent severe without psychotic features F33.2 ; Chronic pain syndrome G89.4 and Encounter for immunization Z23 [facility] [address] [id number] [place] [id number] Aug, Elevated blood pressure I10 [facility] [address] [facility] [id number] [address] [place] [phone] May, Hypercholesterolemia with hy pertriglyceridemia E78.2 and Atherosclerotic heart disease of [place] coronary 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 [facility] [address] [facility] [id number] [address] [place] [address] March, Lumbago with sciatica, unspe cified side M54.40 ; Environmental allergies Z91.09 ; Hypercholesterolemia with hypertriglyceridemia E78.2 and Atherosclerotic heart disease of [place] coronary 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 [facility] [address] [id number] [address] [place] [id number] 14 Dec, 2017 Severe episode of recurrent major depressive disorder, without psychotic features F33.2 ; Alcohol use disorder, moderate, in sustained remission F10.21 and Cannabis use disorder, mild, abuse F12.10 [facility] [address] [facility] [id number] [address] [place] [phone] 12 Dec, 2017 Severe episode of recurrent major depressive disorder, without psychotic features F33.2 [place] [address] [facility] [id number] [address] [place] [phone] Nov, [place] [address] [place] [id number] [address] [place] [phone] 08 Nov, 2017 Atherosclerotic 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 ; Hypercholesterolemia with hypertriglyceridemia E78.2 ; Depression F32.9 and Cigarette nicotine dependence without complication F17.210 [place] [address] [facility] [id number] [address] [place] [address] Oct, [facility] [address] [id number] [address] [place] [id number] Jul, [facility] [address] [id number] [address] [place] [address] Jun, [facility] [address] [id number] [address] [place] [phone] Apr, Pain in thoracic spine M54.6 and Lumbago with sciatica, unspecified side M54.40 [facility] [address] [id number] [address] [place] [address] March, [place] [address] [facility] [id number] [address] [place] [phone] March, Depression F32.9 [place] [address] [facility] [id number] [address] [place] [address] March, Anxiety F41.9 ; Depression F 32.9 ; Atherosclerotic heart disease of [place] coronary 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 ; Hypercholesterolemia with hypertriglyceridemia E78.2 ; Right wrist tendonitis M77.8 and Environmental allergies Z91.09 [facility] [address] [id number] [place] [facility] [id number] Dec, [place] [address] [id number] [address] [place] [address] Nov, Iron deficiency anemia, unsp ecified iron deficiency anemia type D50.9 ; Anxiety F41.9 ; Dysthymia (or depressive neurosis) F34.1 and Hypercholesterolemia with hypertriglyceridemia E78.2 [place] [id number] [address] [place] [phone] Oct, [place] [address] [id number] Oct, [address] [address] Oct, Dysthymia (or depressive sherice rosis) F34.1 ; Atherosclerotic heart disease of [place] coronary 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 ; Coronary atherosclerosis due to lipid rich plaque I25.83 ; Hypercholesterolemia with hypertriglyceridemia E78.2 ; Iron deficiency anemia, unspecified iron deficiency anemia type D50.9 ; Hospital discharge follow-up Z09 ; History of PID Z87.42 ; Environmental allergies Z91.09 and Dysuria R30.0 [place] [address] [id number] [address] [place] [phone] Sep, [place] [address] [address] Sep, [place] [address] [id number] [address] [place] [address] Aug, Dysthymia F34.1 and Anxiety F41.9 [place] [address] [place] [id number] [address] [place] [address] March, Coronary artery disease invo lving gamb[place] coronary artery, angina presence unspecified, unspecified whether gamb[place] or transplanted heart I25.10 ; Bipolar 1 disorder, depressed F31.9 ; Anxiety F41.9 and Dysthymia F34.1 [place] [address] [id number] 04 Feb, 2016 Depression F32.9 and Stomach pain R10.9 [place] [address] [id number] Jan, Hyperlipidemia 272.4 [place] [address] [id number] 17 Dec, 2015 [place] [address] [id number] 11 Dec, 2015 Major depressive disorder, r ecurrent episode, unspecified 296.30 ; Anxiety F41.9 ; Grief F43.20 and Dysthymia F34.1 [place] [address] [address] Dec, Anxiety F41.9 and Grief F43. 20 [place] [address] [address] Oct, Insomnia, unspecified G47.00 and Anxiety F41.9 [place] [address] [address] Oct, Dysthymia F34.1 ; Right shou lder pain M25.511 ; Sciatica, right M54.31 and Iron deficiency anemia, unspecified iron deficiency anemia type D50.9 [place] [address] [address] Sep, [place] [address] [address] Sep, Grief F43.20 [place] [address] [place] [id number] [address] [place] [address] Sep, [facility] [address] [id number] Sep, [facility] [address] [id number] [place] [address] Sep, Hyperlipidemia E78.5 ; CAD ( coronary artery disease) I25.10 and HTN (hypertension) I10 [facility] [address] [address] Aug, Allergic rhinitis, unspecifi ed allergic rhinitis type J30.9 [facility] [address] [id number] Aug, Left-sided low back pain wit h right-sided sciatica M54.41 and Hyperlipidemia, unspecified hyperlipidemia E78.5 [facility] [address] [address] Aug, Neck pain M54.2 and Low back pain M54.5 [facility] [address] [address] Jun, [facility] [address] [address] Jun, [facility] [address] [address] Jun, CAD (coronary artery disease ) 414.00 ; Hyperlipidemia 272.4 and Anemia 285.9 [facility] [address] [id number] Feb, [facility] [address] [id number] [place] [address] Feb, [facility] [address] [id number] [address] [place] [address] Jan, [facility] [address] [id number] [place] [address] Jan, [facility] [address] [id number] [address] [place] [address], [place] [address] Jan, [facility] [address] [id number] [address] [place] [address], [place] [address] Jan, [facility] [address] [id number] [address] [place] [address], [place] [address] Dec, 2014 [facility] [address] [id number] [address] [place] [address], [place] [address] Dec, 2014 [facility] [address] [id number] [address] [place] [address], [place] [address] Dec, 2014 [facility] [address] [id number] [address] [place] [address], [place] [address] Dec, 2014 [facility] [address] [id number] [address] [place] [address], [place] [address] Dec, 2014 [facility] [address] [id number] [address] [place] [address], [place] [address] Dec, 2014 [facility] [address] [id number] [address] [place] [address], [place] [address] Dec, 2014 [facility] [address] [id number] [address] [place] [address], [place] [address] Dec, [facility] [address] [id number] [address] [place] [address], [place] [address] Dec, 2014 [facility] [address] [id number] [address] [place] [address], [place] [address] Dec, 2014 [facility] [address] [id number] [address] [place] [address], [place] [address] Dec, 2014 [facility] [address] [id number] [address] [place] [address] Dec, 2014 [facility] [address] [id number] [address] [place] [address] Nov, [facility] [address] [id number] [address] [place] [address], [place] [address] Nov, [facility] [address] [id number] [address] [place] [address], [place] [address] Nov, [facility] [address] [id number] [address] [place] [address], [place] [address] Nov, [facility] [address] [id number] [address] [place] [address], [place] [address] Oct, [facility] [address] [id number] [address] [place] [address], [place] [address] Oct, [facility] [address] [id number] [address] [place] [address], [place] [address] Sep, [facility] [address] [id number] [address] [place] [address], [place] [address] Sep, [facility] [address] [id number] [address] [place] [address], [place] [address] Aug, [facility] [address] [id number] [address] [place] [address], [place] [address] Aug, [facility] [address] [id number] [address] [place] [address], [place] [address] 30 Jul, 2014 [facility] [address] [id number] [address] [place] [address], [place] [address] 30 Jul, 2014 [facility] [address] [id number] [address] [place] [address], [place] [address] 16 Jul, 2013 [facility] [address] [id number] [address] [place] [address], [place] [address] 16 Jul, 2014 [facility] [address] [id number] [address] [place] [address], [place] [address] 15 Jul, 2014 [facility] [address] [id number] [address] [place] [address], [place] [address] 12 Jul, 2014 [facility] [address] [id number] [address] [place] [address], [place] [address] Jul, [facility] [address] [id number] [facility] [address] Jul, [facility] [address] [id number] [facility] [address] Jul, [facility] [address] [id number] [facility] [address] Jul, [facility] [address] [id number] [address] [place] [address], [place] [address] Jul, [facility] [address] [id number] [address] [place] [address], [place] [address] Jul, [facility] [address] [id number] [address] [place] [address], [place] [address] Jul, [facility] [address] [id number] [address] [place] [address], [place] [address] Jun, [facility] [address] [id number] [address] [place] [address], [place] [address] Jun, [facility] [address] [id number] [address] [place] [address], [place] [address] Jun, [facility] [address] [id number] [address] [place] [address], [place] [address] Jun, [facility] [address] [id number] [address] [place] [address], [place] [address] Jun, [facility] [address] [id number] [address] [place] [address], [place] [address] Jun, [facility] [address] [id number] [address] [place] [address], [place] [address] Jun, [facility] [address] [id number] [address] [place] [address], [place] [address] Jun, [facility] [address] [id number] [address] [place] [address], [place] [address] May, [facility] [address] [id number] [facility] [address] May, [facility] [address] [id number] [facility] [address] Apr, [facility] [address] [id number] [facility] [address] Apr, [facility] [address] [id number] [address] [place] [address], [place] [address] Apr, [facility] [address] [id number] [facility] [address] Apr, [facility] [address] [id number] [address] [place] [address], [place] [address] March, [facility] [address] [id number] [address] [place] [address], [place] [address] March, [facility] [address] [id number] [address] [place] [address], [place] [address] March, [facility] [address] [id number] [address] [place] [address], [place] [address] March, [facility] [address] [id number] [address] [place] [address], [place] [address] March, [facility] [address] [id number] [address] [place] [address], [place] [address] March, [facility] [address] [id number] [address] [place] [address], [place] [address] March, [facility] [address] [id number] [address] [place] [address], [place] [address] March, [facility] [address] [id number] [address] [place] [address], [place] [address] March, [facility] [address] [id number] [address] [place] [address], [place] [address] March, [facility] [address] [id number] [address] [place] [address], [place] [address] March, [facility] [address] [id number] [address] [place] [address], [place] [address] Nov, [facility] [address] [id number] [address] [place] [address], [place] [address] Nov, [facility] [address] [id number] [address] [place] [address], [place] [address] Nov, [facility] [address] [id number] [address] [place] [address], [place] [address] Oct, [facility] [address] [id number] [address] [place] [address], [place] [address] Oct, [facility] [address] [id number] [address] [place] [address], [place] [address] Aug, [facility] [address] [id number] [address] [place] [address], [place] [address] Aug, [facility] [address] [id number] [place] [id number] Jun, [facility] [place] [address] [id number] [place] [id number] Apr, [facility] [address] [id number] [address] [place] [address], [place] [address] Apr, [facility] [address] [id number] [address] [place] [address], [place] [address] Apr, [facility] [address] [id number] [place] [id number] March, [facility] [place] [address] [id number] [place] [id number] Feb, [facility] [place] [address] [id number] [place] [id number] Jan, [facility] [address] [id number] [address] [place] [address], [place] [address] Jan, [facility] [address] [id number] [address] [place] [address], [place] [address] Jan, [facility] [address] [id number] [address] [place] [address], [place] [address] Jan, [facility] [place] [address] [id number] [place] [id number] Dec, [facility] [place] [address] [id number] [place] [id number] Dec, [facility] [address] [id number] [address] [place] [address], [place] [address] Dec, [facility] [address] [id number] [address] [place] [address], [place] [address] Dec, [facility] [address] [id number] [address] [place] [address], [place] [address] Dec, [facility] [address] [facility] [id number] [address] [place] [address], [place] [address] Nov, [facility] [address] [id number] [address] [place] [address], [place] [address] Nov, [facility] [place] [address] [id number] [place] [id number] Nov, [facility] [address] [id number] [address] [place] [address], [place] [address] Nov, [facility] [place] [address] [id number] [place] [id number] Nov, [facility] [place] [address] [id number] [place] [id number] Nov, [facility] [place] [address] [id number] [place] [id number] Oct, [facility] [place] [address] [id number] [place] [id number] Oct, [facility] [address] [id number] [address] [place] [address], [place] [address] Oct, [facility] [address] [id number] [address] [place] [address], [place] [address] Oct, [facility] [address] [id number] [address] [place] [address] Oct, [facility] [address] [facility] [id number] [address] [place] [address] Sep, [facility] [address] [facility] [id number] [address] [place] [address] Sep, [facility] [place] [address] [id number] [place] [id number] Sep, [facility] [place] [address] [id number] [place] [id number] Sep, [facility] [place] [address] [id number] [place] [id number] Sep, [facility] [address] [facility] [id number] [address] [place] [address] Sep, [facility] [address] [facility] [id number] [address] [place] [address] Aug, [facility] [place] [address] [id number] [place] [id number] Aug, [facility] [address] [facility] [id number] [address] [place] [address] Aug, [facility] [place] [address] [id number] [place] [id number] Jul, [facility] [place] [address] [id number] [place] [id number] Jul, [facility] [place] [address] [id number] [place] [id number] Jun, [facility] [place] [address] [id number] [place] [id number] May, [facility] [place] [address] [id number] [place] [id number] Feb, [facility] [place] [address] [id number] [place] [id number] Feb, [facility] [place] [address] [id number] [place] [id number] Feb, [facility] [place] [address] [id number] [place] [id number] Dec, [facility] [address] [id number] [place] [id number] Dec, [facility] [address] [id number] [address] [place] [phone] Oct, [facility] [address] [id number] [address] [place] [phone] Sep, [facility] [address] [id number] [address] [place] [phone] Sep, [facility] [address] [id number] [address] [place] [id number] Sep, [facility] [address] [id number] [address] [place] [phone] Sep, [facility] [address] [id number] [address] [place] [phone] March, [facility] [address] [id number] [address] [place] [phone] Sep, [facility] [address] [id number] [address] [place] [phone] Jul, [facility] [address] [id number] [address] [place] [id number] May, [facility] [address] [id number] [address] [place] [id number] Jan, [facility] [address] [id number] [address] [place] [phone] Sep, [facility] [address] [id number] [address] [place] [phone] Aug, IMMUNIZATIONS No Known Immunizations SOCIAL HISTORY Never Assessed REASON FOR VISIT [facility] PLAN OF CARE VITAL SIGNS MEDICATIONS No [...] stents in heart Hospitalization History Pelvic Inflammatory Disease-[facility] 09/22 Hospitalization History 2 inpatient psychiatric treatments, suicide attempts
--- OUTSIDE RECORDS SUMMARY | 2020-05-31 11:46 | XMS REPORT ---
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 Active 880040609 Problem Lumbago with sciatica, unspecified side M54.40 Active 139949637 Problem Chronic pain syndrome G89.4 Active 139634355 Problem Hypercholesterolemia with hypertriglyceridemia E78 .2 Active 936026124 Problem Major depressive disorder, recurrent sev ere without psychotic features F33.2 Active 46354186 Problem Dysthymia (or depressive neurosis) F34.1 Active 94284711 Problem Cigarette nicotine dependence without complication F17.210 Active 04733229 Problem Alcohol use disorder, moderate, in sustained remission F10.21 Active 13519322 Problem Cannabis use disorder, mild, abuse F12.10 Active 67545475 Problem Elevated blood pressure I10 Active 83350882 ALLERGIES No Information ENCOUNTERS Encounter Location Date Diagnosis [facility] [address] [facility] [id number] [address] [place] [id number] Dec, Major depressive disorder, r ecurrent severe without psychotic features F33.2 ; Chronic pain syndrome G89.4 and Encounter for immunization Z23 [facility] [address] [id number] [place] [id number] Aug, Elevated blood pressure I10 [facility] [address] [facility] [id number] [address] [place] [address] May, Hypercholesterolemia with hy pertriglyceridemia E78.2 and Atherosclerotic heart disease of tanana coronary 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 [facility] [address] [facility] [id number] [address] [place] [address] 11 Mar, 2018 Lumbago with sciatica, unspe cified side M54.40 ; Environmental allergies Z91.09 ; Hypercholesterolemia with hypertriglyceridemia E78.2 and Atherosclerotic heart disease of tanana coronary 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 [facility] [address] [facility] [id number] [address] [place] [id number] 14 Dec, 2017 Severe episode of recurrent major depressive disorder, without psychotic features F33.2 ; Alcohol use disorder, moderate, in sustained remission F10.21 and Cannabis use disorder, mild, abuse F12.10 [facility] [address] [facility] [id number] [address] [place] [id number] 12 Dec, 2017 Severe episode of recurrent major depressive disorder, without psychotic features F33.2 [place] [address] [facility] [id number] [address] [place] [id number] 18 Nov, 2017 [facility] [address] [facility] [id number] [address] [place] [id number] 08 Nov, 2017 Atherosclerotic heart diseas e of tanana coronary 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 ; Hypercholesterolemia with hypertriglyceridemia E78.2 ; Depression F32.9 and Cigarette nicotine dependence without complication F17.210 [facility] [address] [facility] [id number] [address] [place] [address] Oct, [facility] [address] [id number] [address] [place] [address] Jul, [facility] [address] [facility] [id number] [address] [place] [address] Jun, [facility] [address] [facility] [id number] [address] [place] [address] Apr, Pain in thoracic spine M54.6 and Lumbago with sciatica, unspecified side M54.40 [facility] [address] [facility] [id number] [address] [place] [address] March, [place] [address] [place] [id number] [address] [place] [address] March, Depression F32.[address] [address] March, Anxiety F41.9 ; Depression F 32.9 ; Atherosclerotic heart disease of tanana coronary 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 ; Hypercholesterolemia with hypertriglyceridemia E78.2 ; Right wrist tendonitis M77.8 and Environmental allergies Z91.09 [facility] [address] [id number] [place] [id number] Dec, [address] [address] Nov, Iron deficiency anemia, unsp ecified iron deficiency anemia type D50.9 ; Anxiety F41.9 ; Dysthymia (or depressive neurosis) F34.1 and Hypercholesterolemia with hypertriglyceridemia E78.[address] [address] 14 Oct, [address] [address] Oct, [address] [address] Oct, Dysthymia (or depressive sherice rosis) F34.1 ; Atherosclerotic heart disease of tanana coronary 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 ; Coronary atherosclerosis due to lipid rich plaque I25.83 ; Hypercholesterolemia with hypertriglyceridemia E78.2 ; Iron deficiency anemia, unspecified iron deficiency anemia type D50.9 ; Hospital discharge follow-up Z09 ; History of PID Z87.42 ; Environmental allergies Z91.09 and Dysuria R30.[address] [address] Sep, [address] [address] Sep, [address] [address] Aug, Dysthymia F34.1 and Anxiety F41.9 [place] [address] [address] March, Coronary artery disease invo lving tanana coronary artery, angina presence unspecified, unspecified whether tanana or transplanted heart I25.10 ; Bipolar 1 disorder, depressed F31.9 ; Anxiety F41.9 and Dysthymia F34.1 [place] [address] [address] 04 Feb, 2016 Depression F32.9 and Stomach pain R10.9 [place] [address] [address] Jan, Hyperlipidemia 272.4 [place] [address] [address] 17 Dec, 2015 [place] [address] [address] Dec, Major depressive disorder, r ecurrent episode, unspecified 296.30 ; Anxiety F41.9 ; Grief F43.20 and Dysthymia F34.1 [place] [address] [address] Dec, Anxiety F41.9 and Grief F43. 20 [place] [address] [address] Oct, Insomnia, unspecified G47.00 and Anxiety F41.9 [place] [address] [address] Oct, Dysthymia F34.1 ; Right shou lder pain M25.511 ; Sciatica, right M54.31 and Iron deficiency anemia, unspecified iron deficiency anemia type D50.9 [place] [address] [address] Sep, [place] [address] [address] Sep, Grief F43.20 [facility] [address] [address] Sep, [facility] [address] [address] Sep, [facility] [address] [address] Sep, Hyperlipidemia E78.5 ; CAD ( coronary artery disease) I25.10 and HTN (hypertension) I10 [facility] [address] [address] Aug, Allergic rhinitis, unspecifi ed allergic rhinitis type J30.9 [place] [address] [address] Aug, Left-sided low back pain wit h right-sided sciatica M54.41 and Hyperlipidemia, unspecified hyperlipidemia E78.5 [facility] [address] [address] Aug, Neck pain M54.2 and Low back pain M54.5 [facility] [address] [address] Jun, [facility] [address] [address] Jun, [facility] [address] [address] Jun, CAD (coronary artery disease ) 414.00 ; Hyperlipidemia 272.4 and Anemia 285.9 [facility] [address] [address] Feb, [facility] [address] [address] Feb, [facility] [address] [address] Jan, [facility] [address] [id number] [address] [place] [address], [place] [address] Jan, [facility] [address] [id number] [address] [place] [address], [place] [address] Jan, [facility] [address] [id number] [address] [place] [address], [place] [address] Jan, [facility] [address] [id number] [address] [place] [address], [place] [address] Dec, 2014 [facility] [address] [id number] [address] [place] [address], [place] [address] Dec, 2014 [facility] [address] [id number] [address] [place] [address], [place] [address] Dec, 2014 [facility] [address] [id number] [address] [place] [address], [place] [address] Dec, 2014 [facility] [address] [id number] [address] [place] [address], [place] [address] Dec, 2014 [facility] [address] [id number] [address] [place] [address], [place] [address] Dec, 2014 [facility] [address] [id number] [address] [place] [address], [place] [address] Dec, 2014 [facility] [address] [id number] [address] [place] [address], [place] [address] Dec, 2014 [facility] [address] [id number] [address] [place] [address], [place] [address] 12 Dec, 2014 [facility] [address] [id number] [address] [place] [address], [place] [address] Dec, 2014 [facility] [address] [id number] [address] [place] [address], [place] [address] 05 Dec, 2014 [facility] [address] [id number] [address] [place] [address], [place] [address] 05 Fe2014 [facility] [address] [id number] [address] [place] [address], [place] [address] Nov, [facility] [address] [id number] [address] [place] [address], [place] [address] Nov, [facility] [address] [id number] [address] [place] [address], [place] [address] Nov, [facility] [address] [id number] [address] [place] [address], [place] [address] Nov, [facility] [address] [id number] [address] [place] [address], [place] [address] Oct, [facility] [address] [id number] [address] [place] [address], [place] [address] Oct, [facility] [address] [id number] [address] [place] [address], [place] [address] Sep, [facility] [address] [id number] [address] [place] [address], [place] [address] Sep, [facility] [address] [id number] [address] [place] [address], [place] [address] Aug, [facility] [address] [id number] [address] [place] [address], [place] [address] 03 Aug, 2014 [facility] [address] [id number] [address] [place] [address], [place] [address] 30 Jul, 2014 [facility] [address] [id number] [address] [place] [address], [place] [address] 30 Jul, 2013 [facility] [address] [id number] [address] [place] [address], [place] [address] 16 Jul, 2014 [facility] [address] [id number] [address] [place] [address], [place] [address] 16 Jul, 2013 [facility] [address] [id number] [address] [place] [address], [place] [address] 15 Jul, 2014 [facility] [address] [id number] [address] [place] [address], [place] [address] Jul, [facility] [address] [id number] [facility] [place] [address] 12 Jul, 2014 [facility] [address] [id number] [address] [place] [address], [place] [address] Jul, [facility] [address] [id number] [address] [place] [address], [place] [address] Jul, [facility] [address] [id number] [address] [place] [address], [place] [address] Jul, [facility] [address] [id number] [address] [place] [address], [place] [address] Jul, [facility] [address] [id number] [address] [place] [address], [place] [address] Jul, [facility] [address] [id number] [address] [place] [address], [place] [address] Jul, [facility] [address] [id number] [address] [place] [address], [place] [address] Jun, [facility] [address] [id number] [address] [place] [address], [place] [address] Jun, [facility] [address] [id number] [address] [place] [address], [place] [address] Jun, [facility] [address] [id number] [address] [place] [address], [place] [address] Jun, [facility] [address] [id number] [address] [place] [address], [place] [address] Jun, [facility] [address] [id number] [address] [place] [address], [place] [address] Jun, [facility] [address] [id number] [address] [place] [address], [place] [address] Jun, [facility] [address] [id number] [address] [place] [address], [place] [address] Jun, [facility] [address] [id number] [facility] [place] [address] May, [facility] [address] [id number] [address] [place] [address], [place] [address] May, [facility] [address] [id number] [address] [place] [address], [place] [address] Apr, [facility] [address] [id number] [address] [place] [address], [place] [address] Apr, [facility] [address] [id number] [address] [place] [address], [place] [address] Apr, [facility] [address] [id number] [address] [place] [address], [place] [address] Apr, [facility] [address] [id number] [address] [place] [address], [place] [address] March, [facility] [address] [id number] [address] [place] [address], [place] [address] March, [facility] [address] [id number] [address] [place] [address], [place] [address] March, [facility] [address] [id number] [address] [place] [address], [place] [address] March, [facility] [address] [id number] [address] [place] [address], [place] [address] March, [facility] [address] [id number] [address] [place] [address], [place] [address] March, [facility] [address] [id number] [address] [place] [address], [place] [address] March, [facility] [address] [id number] [address] [place] [address], [place] [address] March, [facility] [address] [id number] [address] [place] [address], [place] [address] March, [facility] [address] [id number] [address] [place] [address], [place] [address] March, [facility] [address] [id number] [address] [place] [address], [place] [address] March, [facility] [address] [id number] [address] [place] [address], [place] [address] Nov, [facility] [address] [id number] [address] [place] [address], [place] [address] Nov, [facility] [address] [id number] [address] [place] [address], [place] [address] Nov, [facility] [address] [id number] [address] [place] [address], [place] [address] Oct, [facility] [address] [id number] [address] [place] [address], [place] [address] Oct, [facility] [address] [id number] [address] [place] [address], [place] [address] Aug, [facility] [address] [id number] [address] [place] [address] Aug, [facility] [place] [address] [id number] [place] [id number] Jun, [facility] [place] [address] [id number] [place] [id number] Apr, [facility] [address] [id number] [address] [place] [address] Apr, [facility] [address] [id number] [address] [place] [address], [place] [address] Apr, [facility] [place] [address] [id number] [place] [id number] March, [facility] [place] [address] [id number] [place] [id number] Feb, [facility] [place] [address] [id number] [place] [id number] Jan, [facility] [address] [id number] [address] [place] [address], [place] [address] Jan, [facility] [address] [id number] [address] [place] [address], [place] [address] Jan, [facility] [address] [id number] [address] [place] [address], [place] [address] Jan, [facility] [place] [address] [id number] [place] [id number] Dec, [facility] [place] [address] [id number] [place] [id number] Dec, [facility] [address] [id number] [address] [place] [address], [place] [address] Dec, [facility] [address] [facility] [id number] [address] [place] [address], [place] [address] Dec, [facility] [address] [facility] [id number] [address] [place] [address], [place] [address] Dec, [facility] [address] [facility] [id number] [address] [place] [address], [place] [address] Nov, [facility] [address] [id number] [address] [place] [address] Nov, [facility] [place] [address] [id number] [place] [id number] Nov, [facility] [address] [facility] [id number] [address] [place] [address] Nov, [facility] [place] [address] [id number] [place] [id number] Nov, [facility] [place] [address] [id number] [place] [id number] Nov, [facility] [place] [address] [id number] [place] [id number] Oct, [facility] [place] [address] [id number] [place] [id number] Oct, [facility] [address] [id number] [address] [place] [address] Oct, [facility] [address] [id number] [address] [place] [address] Oct, [facility] [address] [facility] [id number] [address] [place] [address] Oct, [facility] [address] [facility] [id number] [address] [place] [address] Sep, [facility] [address] [facility] [id number] [address] [place] [address] Sep, [facility] [place] [address] [id number] [place] [id number] Sep, [facility] [place] [address] [id number] [place] [id number] Sep, [facility] [place] [address] [id number] [place] [id number] Sep, [facility] [address] [facility] [id number] [address] [place] [address] Sep, [facility] [address] [facility] [id number] [address] [place] [address] Aug, [facility] [place] [address] [id number] [place] [id number] Aug, [facility] [address] [facility] [id number] [address] [place] [address] Aug, [facility] [place] [address] [id number] [place] [id number] Jul, [facility] [place] [address] [id number] [place] [id number] Jul, [facility] [place] [address] [id number] [place] [id number] Jun, [facility] [place] [address] [id number] [place] [id number] May, [facility] [place] [address] [id number] [place] [id number] Feb, [facility] [place] [address] [id number] [place] [id number] Feb, [facility] [place] [address] [id number] [place] [id number] Feb, [facility] [address] [id number] [place] [id number] Dec, [facility] [address] [id number] [place] [id number] Dec, [facility] [address] [id number] [address] [place] [address] Oct, [facility] [address] [id number] [address] [place] [address] Sep, [facility] [address] [id number] [address] [place] [address] Sep, [facility] [address] [id number] [address] [place] [address] Sep, [facility] [address] [id number] [address] [place] [address] Sep, [facility] [address] [id number] [address] [place] [address] March, [facility] [address] [id number] [address] [place] [address] Sep, [facility] [address] [facility] [id number] [address] [place] [phone] Jul, [facility] [address] [id number] [address] [place] [id number] May, [facility] [address] [id number] [address] [place] [id number] Jan, [facility] [address] [id number] [address] [place] [phone] Sep, [facility] [address] [facility] [id number] [address] [place] [id number] Aug, IMMUNIZATIONS No Known Immunizations SOCIAL HISTORY [...]
--- OUTSIDE RECORDS SUMMARY | 2020-05-31 11:46 | XMS REPORT ---
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 Active 294003526 Problem Lumbago with sciatica, unspecified side M54.40 Active 293891883 Problem Chronic pain syndrome G89.4 Active 631604135 Problem Hypercholesterolemia with hypertriglyceridemia E78 .2 Active 817808507 Problem Major depressive disorder, recurrent sev ere without psychotic features F33.2 Active 37435521 Problem Dysthymia (or depressive neurosis) F34.1 Active 25288952 Problem Cigarette nicotine dependence without complication F17.210 Active 12661688 Problem Alcohol use disorder, moderate, in sustained remission F10.21 Active 44488051 Problem Cannabis use disorder, mild, abuse F12.10 Active 19044990 Problem Elevated blood pressure I10 Active 01224746 ALLERGIES No Information ENCOUNTERS Encounter Location Date Diagnosis [facility] [place] [address] [facility] [id number] [address] [place] [address] Dec, Major depressive disorder, r ecurrent severe without psychotic features F33.2 ; Chronic pain syndrome G89.4 and Encounter for immunization Z23 [facility] [address] [id number] [place] [id number] Aug, Elevated blood pressure I10 [facility] [place] [address] [facility] [id number] [address] [place] [address] May, Hypercholesterolemia with hy pertriglyceridemia E78.2 and Atherosclerotic heart disease of washoe coronary 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 [facility] [place] [address] [facility] [id number] [address] [place] [address] 11 Mar, 2018 Lumbago with sciatica, unspe cified side M54.40 ; Environmental allergies Z91.09 ; Hypercholesterolemia with hypertriglyceridemia E78.2 and Atherosclerotic heart disease of [place]hoe coronary artery without angina pectoris I25.10 [facility] [place] [address] [facility] [id number] [address] [place] [address] 14 Dec, 2017 Severe episode of recurrent major depressive disorder, without psychotic features F33.2 ; Alcohol use disorder, moderate, in sustained remission F10.21 and Cannabis use disorder, mild, abuse F12.10 [facility] [place] [address] [facility] [id number] [address] [place] [address] 12 Dec, 2017 Severe episode of recurrent major depressive disorder, without psychotic features F33.2 [place] [address] [facility] [id number] [address] [place] [address] 18 Nov, 2017 [facility] [place] [address] [facility] [id number] [address] [place] [address] 08 Nov, 2017 Atherosclerotic heart 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 ; Hypercholesterolemia with hypertriglyceridemia E78.2 ; Depression F32.9 and Cigarette nicotine dependence without complication F17.210 [facility] [place] [address] [facility] [id number] [address] [place] [address] Oct, [facility] [place] [address] [id number] [address] [place] [address] Jul, [facility] [place] [address] [facility] [id number] [address] [place] [address] Jun, [facility] [place] [address] [facility] [id number] [address] [place] [address] Apr, Pain in thoracic spine M54.6 and Lumbago with sciatica, unspecified side M54.40 [facility] [place] [address] [facility] [id number] [address] [place] [address] March, [place] [address] [place] [id number] [address] [place] [address] March, Depression F32.[address] [address] March, Anxiety F41.9 ; Depression F 32.9 ; Atherosclerotic heart disease of washoe coronary artery without angina pectoris I25.10 ; Hypercholesterolemia with hypertriglyceridemia E78.2 ; Right wrist tendonitis M77.8 and Environmental allergies Z91.09 [facility] [address] [id number] [place] [id number] Dec, [address] [address] Nov, Iron deficiency anemia, unsp ecified iron deficiency anemia type D50.9 ; Anxiety F41.9 ; Dysthymia (or depressive neurosis) F34.1 and Hypercholesterolemia with hypertriglyceridemia E78.[address] [address] 14 Oct, [address] [address] Oct, [address] [address] Oct, Dysthymia (or depressive sherice rosis) F34.1 ; Atherosclerotic heart disease of washoe coronary artery without angina pectoris I25.10 ; Coronary atherosclerosis due to lipid rich plaque I25.83 ; Hypercholesterolemia with hypertriglyceridemia E78.2 ; Iron deficiency anemia, unspecified iron deficiency anemia type D50.9 ; Hospital discharge follow-up Z09 ; History of PID Z87.42 ; Environmental allergies Z91.09 and Dysuria R30.[address] [address] Sep, [address] [address] Sep, [address] [address] Aug, Dysthymia F34.1 and Anxiety F41.9 [place] [address] [address] March, Coronary artery disease invo lving washoe coronary artery, angina presence unspecified, unspecified whether washoe or transplanted heart I25.10 ; Bipolar 1 disorder, depressed F31.9 ; Anxiety F41.9 and Dysthymia F34.1 [place] [address] [address] 04 Feb, 2016 Depression F32.9 and Stomach pain R10.9 [place] [address] [address] Jan, Hyperlipidemia 272.4 [place] [address] [address] 17 Dec, 2015 [place] [address] [address] Dec, Major depressive disorder, r ecurrent episode, unspecified 296.30 ; Anxiety F41.9 ; Grief F43.20 and Dysthymia F34.1 [place] [address] [address] Dec, Anxiety F41.9 and Grief F43. 20 [place] [address] [address] Oct, Insomnia, unspecified G47.00 and Anxiety F41.9 [place] [address] [address] Oct, Dysthymia F34.1 ; Right shou lder pain M25.511 ; Sciatica, right M54.31 and Iron deficiency anemia, unspecified iron deficiency anemia type D50.9 [place] [address] [address] Sep, [place] [address] [address] Sep, Grief F43.20 [facility] [place] [address] [address] Sep, [facility] [place] [address] [address] Sep, [facility] [place] [address] [address] Sep, Hyperlipidemia E78.5 ; CAD ( coronary artery disease) I25.10 and HTN (hypertension) I10 [facility] [place] [address] [address] Aug, Allergic rhinitis, unspecifi ed allergic rhinitis type J30.9 [place] [address] [address] Aug, Left-sided low back pain wit h right-sided sciatica M54.41 and Hyperlipidemia, unspecified hyperlipidemia E78.5 [facility] [place] [address] [address] Aug, Neck pain M54.2 and Low back pain M54.5 [facility] [place] [address] [address] Jun, [facility] [place] [address] [address] Jun, [facility] [place] [address] [address] Jun, CAD (coronary artery disease ) 414.00 ; Hyperlipidemia 272.4 and Anemia 285.9 [facility] [place] [address] [address] Feb, [facility] [place] [address] [address] Feb, [facility] [place] [address] [address] Jan, [facility] [address] [id number] [address] [place] [address], [place] [address] Jan, [facility] [address] [id number] [address] [place] [address], [place] [address] Jan, [facility] [address] [id number] [address] [place] [address], [place] [address] Jan, [facility] [address] [id number] [address] [place] [address], [place] [address] Dec, 2014 [facility] [address] [id number] [address] [place] [address], [place] [address] Dec, 2014 [facility] [address] [id number] [address] [place] [address], [place] [address] Dec, 2014 [facility] [address] [id number] [address] [place] [address], [place] [address] Dec, 2014 [facility] [address] [id number] [address] [place] [address], [place] [address] Dec, 2014 [facility] [address] [id number] [address] [place] [address], [place] [address] Dec, 2014 [facility] [address] [id number] [address] [place] [address], [place] [address] Dec, 2014 [facility] [address] [id number] [address] [place] [address], [place] [address] Dec, 2014 [facility] [address] [id number] [address] [place] [address], [place] [address] 12 Dec, 2014 [facility] [address] [id number] [address] [place] [address], [place] [address] Dec, 2014 [facility] [address] [id number] [address] [place] [address], [place] [address] 05 Dec, 2014 [facility] [address] [id number] [address] [place] [address], [place] [address] 05 Fe2014 [facility] [address] [id number] [address] [place] [address], [place] [address] Nov, [facility] [address] [id number] [address] [place] [address], [place] [address] Nov, [facility] [address] [id number] [address] [place] [address], [place] [address] Nov, [facility] [address] [id number] [address] [place] [address], [place] [address] Nov, [facility] [address] [id number] [address] [place] [address], [place] [address] Oct, [facility] [address] [id number] [address] [place] [address], [place] [address] Oct, [facility] [address] [id number] [address] [place] [address], [place] [address] Sep, [facility] [address] [id number] [address] [place] [address], [place] [address] Sep, [facility] [address] [id number] [address] [place] [address], [place] [address] Aug, [facility] [address] [id number] [address] [place] [address], [place] [address] 03 Aug, 2014 [facility] [address] [id number] [address] [place] [address], [place] [address] 30 Jul, 2014 [facility] [address] [id number] [address] [place] [address], [place] [address] 30 Jul, 2013 [facility] [address] [id number] [address] [place] [address], [place] [address] 16 Jul, 2014 [facility] [address] [id number] [address] [place] [address], [place] [address] 16 Jul, 2013 [facility] [address] [id number] [address] [place] [address], [place] [address] 15 Jul, 2014 [facility] [address] [id number] [address] [place] [address], [place] [address] Jul, [facility] [address] [id number] [facility] [place] [address] 12 Jul, 2014 [facility] [address] [id number] [address] [place] [address], [place] [address] Jul, [facility] [address] [id number] [address] [place] [address], [place] [address] Jul, [facility] [address] [id number] [address] [place] [address], [place] [address] Jul, [facility] [address] [id number] [address] [place] [address], [place] [address] Jul, [facility] [address] [id number] [address] [place] [address], [place] [address] Jul, [facility] [address] [id number] [address] [place] [address], [place] [address] Jul, [facility] [address] [id number] [address] [place] [address], [place] [address] Jun, [facility] [address] [id number] [address] [place] [address], [place] [address] Jun, [facility] [address] [id number] [address] [place] [address], [place] [address] Jun, [facility] [address] [id number] [address] [place] [address], [place] [address] Jun, [facility] [address] [id number] [address] [place] [address], [place] [address] Jun, [facility] [address] [id number] [address] [place] [address], [place] [address] Jun, [facility] [address] [id number] [address] [place] [address], [place] [address] Jun, [facility] [address] [id number] [address] [place] [address], [place] [address] Jun, [facility] [address] [id number] [facility] [place] [address] May, [facility] [address] [id number] [address] [place] [address], [place] [address] May, [facility] [address] [id number] [address] [place] [address], [place] [address] Apr, [facility] [address] [id number] [address] [place] [address], [place] [address] Apr, [facility] [address] [id number] [address] [place] [address], [place] [address] Apr, [facility] [address] [id number] [address] [place] [address], [place] [address] Apr, [facility] [address] [id number] [address] [place] [address], [place] [address] March, [facility] [address] [id number] [address] [place] [address], [place] [address] March, [facility] [address] [id number] [address] [place] [address], [place] [address] March, [facility] [address] [id number] [address] [place] [address], [place] [address] March, [facility] [address] [id number] [address] [place] [address], [place] [address] March, [facility] [address] [id number] [address] [place] [address], [place] [address] March, [facility] [address] [id number] [address] [place] [address], [place] [address] March, [facility] [address] [id number] [address] [place] [address], [place] [address] March, [facility] [address] [id number] [address] [place] [address], [place] [address] March, [facility] [address] [id number] [address] [place] [address], [place] [address] March, [facility] [address] [id number] [address] [place] [address], [place] [address] March, [facility] [address] [id number] [address] [place] [address], [place] [address] Nov, [facility] [address] [id number] [address] [place] [address], [place] [address] Nov, [facility] [address] [id number] [address] [place] [address], [place] [address] Nov, [facility] [address] [id number] [address] [place] [address], [place] [address] Oct, [facility] [address] [id number] [address] [place] [address], [place] [address] Oct, [facility] [address] [id number] [address] [place] [address], [place] [address] Aug, [facility] [address] [id number] [address] [place] [address] Aug, [facility] [place] [address] [id number] [place] [id number] Jun, [facility] [place] [address] [id number] [place] [id number] Apr, [facility] [address] [id number] [address] [place] [address] Apr, [facility] [address] [id number] [address] [place] [address], [place] [address] Apr, [facility] [place] [address] [id number] [place] [id number] March, [facility] [place] [address] [id number] [place] [id number] Feb, [facility] [place] [address] [id number] [place] [id number] Jan, [facility] [address] [id number] [address] [place] [address], [place] [address] Jan, [facility] [address] [id number] [address] [place] [address], [place] [address] Jan, [facility] [address] [id number] [address] [place] [address], [place] [address] Jan, [facility] [place] [address] [id number] [place] [id number] Dec, [facility] [place] [address] [id number] [place] [id number] Dec, [facility] [address] [id number] [address] [place] [address], [place] [address] Dec, [facility] [address] [facility] [id number] [address] [place] [address], [place] [address] Dec, [facility] [address] [facility] [id number] [address] [place] [address], [place] [address] Dec, [facility] [address] [facility] [id number] [address] [place] [address], [place] [address] Nov, [facility] [address] [id number] [address] [place] [address] Nov, [facility] [place] [address] [id number] [place] [id number] Nov, [facility] [address] [facility] [id number] [address] [place] [address] Nov, [facility] [place] [address] [id number] [place] [id number] Nov, [facility] [place] [address] [id number] [place] [id number] Nov, [facility] [place] [address] [id number] [place] [id number] Oct, [facility] [place] [address] [id number] [place] [id number] Oct, [facility] [address] [id number] [address] [place] [address] Oct, [facility] [address] [id number] [address] [place] [address] Oct, [facility] [address] [facility] [id number] [address] [place] [address] Oct, [facility] [address] [facility] [id number] [address] [place] [address] Sep, [facility] [address] [facility] [id number] [address] [place] [address] Sep, [facility] [place] [address] [id number] [place] [id number] Sep, [facility] [place] [address] [id number] [place] [id number] Sep, [facility] [place] [address] [id number] [place] [id number] Sep, [facility] [address] [facility] [id number] [address] [place] [address] Sep, [facility] [address] [facility] [id number] [address] [place] [address] Aug, [facility] [place] [address] [id number] [place] [id number] Aug, [facility] [address] [facility] [id number] [address] [place] [address] Aug, [facility] [place] [address] [id number] [place] [id number] Jul, [facility] [place] [address] [id number] [place] [id number] Jul, [facility] [place] [address] [id number] [place] [id number] Jun, [facility] [place] [address] [id number] [place] [id number] May, [facility] [place] [address] [id number] [place] [id number] Feb, [facility] [place] [address] [id number] [place] [id number] Feb, [facility] [place] [address] [id number] [place] [id number] Feb, [facility] [address] [id number] [place] [id number] Dec, [facility] [address] [id number] [place] [id number] Dec, [facility], [place], [facility] [address] [id number] [address] [place] [id number] Oct, [facility], [place], [facility] [address] [id number] [address] [place] [id number] Sep, [facility], [place], [facility] [address] [id number] [address] [place] [id number] Sep, [facility], [place], [facility] [address] [id number] [address] [place] [id number] Sep, [facility], [place], [facility] [address] [id number] [address] [place] [phone] Sep, [facility], [place], [facility] [address] [id number] [address] [place] [phone] March, [facility], [place], [facility] [address] [id number] [address] [place] [id number] Sep, [facility], [place], [facility] [address] [facility] [id number] [address] [place] [phone] Jul, [facility], [place], [facility] [address] [id number] [address] [place] [phone] May, [facility], [place], [facility] [address] [id number] [address] [place] [id number] Jan, [facility], [place], [facility] [address] [id number] [address] [place] [id number] Sep, [facility], [place], [facility] [address] [facility] [id number] [address] [place] [id number] Aug, IMMUNIZATIONS No Known Immunizations SOCIAL HISTORY [...]
--- OUTSIDE RECORDS SUMMARY | 2020-05-31 11:46 | XMS REPORT ---
Author Author Jeane Camacho Doctor Organization [facility] Address Unknown Phone Unavailable Care Team Providers Care Operations Support Analyst Name Role Phone Migration, Doctor Unavailable Unavailable PROBLEMS Type Condition ICD9-CM Code WHA40-DC Code Onset Dates Condition S tatus SNOMED Code Problem Depression F32.9 Active 45563974 Problem Anxiety F41.9 Active 81036119 Problem Environmental allergies Z91.09 Active 512679628 Problem Atherosclerotic heart diseas e of [place] coronary artery without angina pectoris I25.10 Active 003287637 Problem Lumbago with sciatica, unspecified side M54.40 Active 254687539 Problem Chronic pain syndrome G89.4 Active 054719129 Problem Hypercholesterolemia with hypertriglyceridemia E78 .2 Active 887951435 Problem Major depressive disorder, recurrent sev ere without psychotic features F33.2 Active 27937091 Problem Dysthymia (or depressive neurosis) F34.1 Active 09559806 Problem Cigarette nicotine dependence without complication F17.210 Active 97744478 Problem Alcohol use disorder, moderate, in sustained remission F10.21 Active 34997254 Problem Cannabis use disorder, mild, abuse F12.10 Active 78685820 Problem Elevated blood pressure I10 Active 27319302 ALLERGIES Substance Reaction Event Type Date Status Medrol twitching of arms and legs Drug Allergy Feb, A ctive ENCOUNTERS Encounter Location Date Diagnosis [facility] [address] [id number] [address] [place] [address] Dec, Major depressive disorder, r ecurrent severe without psychotic features F33.2 ; Chronic pain syndrome G89.4 and Encounter for immunization Z23 [facility] [address] [facility] [id number] [place] [id number] Aug, Elevated blood pressure I10 [facility] [address] [facility] [id number] [address] [place] [address] May, Hypercholesterolemia with hy pertriglyceridemia E78.2 and Atherosclerotic heart disease of [place] coronary artery without angina pectoris I25.10 [facility] [address] [id number] [address] [place] [address] 11 Mar, 2018 Lumbago with sciatica, unspe cified side M54.40 ; Environmental allergies Z91.09 ; Hypercholesterolemia with hypertriglyceridemia E78.2 and Atherosclerotic heart disease of [place] coronary artery without angina pectoris I25.10 [facility] [address] [id number] [address] [place] [address] 14 Dec, 2017 Severe episode of recurrent major depressive disorder, without psychotic features F33.2 ; Alcohol use disorder, moderate, in sustained remission F10.21 and Cannabis use disorder, mild, abuse F12.10 [facility] [address] [facility] [id number] [address] [place] [address] 12 Dec, 2017 Severe episode of recurrent major depressive disorder, without psychotic features F33.2 [facility] [address] [id number] [address] [place] [address] 18 Nov, 2017 [facility] [address] [id number] [address] [place] [address] 08 Nov, 2017 Atherosclerotic heart diseas e of [place] coronary artery without angina pectoris I25.10 ; Hypercholesterolemia with hypertriglyceridemia E78.2 ; Depression F32.9 and Cigarette nicotine dependence without complication F17.210 [facility] [address] [id number] [address] [place] [address] Oct, [facility] [address] [id number] [address] [place] [address] Jul, [facility] [address] [id number] [address] [place] [address] Jun, [facility] [address] [id number] [address] [place] [address] Apr, Pain in thoracic spine M54.6 and Lumbago with sciatica, unspecified side M54.40 [facility] [address] [id number] [address] [place] [address] March, [facility] [address] [place] [id number] [address] [place] [address] March, Depression F32.[address] [address] March, Anxiety F41.9 ; Depression F 32.9 ; Atherosclerotic heart disease of [place] coronary artery without angina pectoris I25.10 ; Hypercholesterolemia with hypertriglyceridemia E78.2 ; Right wrist tendonitis M77.8 and Environmental allergies Z91.09 [place] [id number] [place] [id number] Dec, [address] [address] Nov, Iron deficiency anemia, unsp ecified iron deficiency anemia type D50.9 ; Anxiety F41.9 ; Dysthymia (or depressive neurosis) F34.1 and Hypercholesterolemia with hypertriglyceridemia E78.[address] [address] 14 Oct, [address] [address] Oct, [address] [address] 02 Oct, 2016 Dysthymia (or depressive sherice rosis) F34.1 ; Atherosclerotic heart disease of [place] coronary artery without angina pectoris I25.10 ; Coronary atherosclerosis due to lipid rich plaque I25.83 ; Hypercholesterolemia with hypertriglyceridemia E78.2 ; Iron deficiency anemia, unspecified iron deficiency anemia type D50.9 ; Hospital discharge follow-up Z09 ; History of PID Z87.42 ; Environmental allergies Z91.09 and Dysuria R30.[address] [address] Sep, [address] [address] Sep, [address] [address] Aug, Dysthymia F34.1 and Anxiety F41.9 [place] [address] [address] March, Coronary artery disease invo lving [place] coronary artery, angina presence unspecified, unspecified whether [place] or transplanted heart I25.10 ; Bipolar 1 disorder, depressed F31.9 ; Anxiety F41.9 and Dysthymia F34.1 [place] [address] [address] 04 Feb, 2016 Depression F32.9 and Stomach pain R10.9 [place] [address] [address] Jan, Hyperlipidemia 272.4 [place] [address] [address] 17 Dec, 2015 [place] [address] [address] 11 Dec, 2015 Major depressive disorder, r ecurrent episode, unspecified 296.30 ; Anxiety F41.9 ; Grief F43.20 and Dysthymia F34.1 [place] [address] [address] Dec, Anxiety F41.9 and Grief F43. 20 [place] [address] [address] Oct, Insomnia, unspecified G47.00 and Anxiety F41.9 [place] [address] [address] Oct, Dysthymia F34.1 ; Right shou lder pain M25.511 ; Sciatica, right M54.31 and Iron deficiency anemia, unspecified iron deficiency anemia type D50.9 [place] [address] [address] Sep, [place] [address] [address] Sep, Grief F43.20 [facility] [address] [address] Sep, [facility] [address] [address] Sep, [facility] [address] [address] Sep, Hyperlipidemia E78.5 ; CAD ( coronary artery disease) I25.10 and HTN (hypertension) I10 [facility] [address] [address] Aug, Allergic rhinitis, unspecifi ed allergic rhinitis type J30.9 [facility] [address] [address] Aug, Left-sided low back pain wit h right-sided sciatica M54.41 and Hyperlipidemia, unspecified hyperlipidemia E78.5 [facility] [address] [address] Aug, Neck pain M54.2 and Low back pain M54.5 [facility] [address] [address] Jun, [facility] [address] [address] Jun, [facility] [address] [address] Jun, CAD (coronary artery disease ) 414.00 ; Hyperlipidemia 272.4 and Anemia 285.9 [facility] [address] [address] Feb, [facility] [address] [address] Feb, [facility] [address] [address] Jan, [facility] [address] [id number] [address] [place] [address], [place] [address] Jan, [facility] [address] [id number] [address] [place] [address], [place] [address] Jan, 2014 [facility] [address] [id number] [address] [place] [place] [address], [place] [address] Jan, 2014 [facility] [address] [id number] [address] [place] [address], [place] [address] Dec, 2014 [facility] [address] [id number] [address] [place] [address], [place] [address] Dec, 2014 [facility] [address] [id number] [address] [place] [address], [place] [address] Dec, 2014 [facility] [address] [id number] [address] [place] [place] [address], [place] [address] Dec, 2014 [facility] [address] [id number] [address] [place] [address], [place] [address] Dec, 2014 [facility] [address] [id number] [address] [place] [address], [place] [address] Dec, 2014 [facility] [address] [id number] [address] [place] [address], [place] [address] Dec, 2014 [facility] [address] [id number] [address] [place] [place] [address], [place] [address] Dec, 2014 [facility] [address] [id number] [address] [place] [address], [place] [address] 12 Dec, 2014 [facility] [address] [id number] [address] [place] [place] [address], [place] [address] Dec, 2014 [facility] [address] [id number] [address] [place] [address], [place] [address] 05 Dec, 2014 [facility] [address] [id number] [address] [place] [address], [place] [address] Dec, 2014 [facility] [address] [id number] [address] [place] [address], [place] [address] Nov, [facility] [address] [id number] [address] [place] [place] [address], [place] [address] Nov, [facility] [address] [id number] [address] [place] [address], [place] [address] Nov, [facility] [address] [id number] [address] [place] [address], [place] [address] Nov, [facility] [address] [id number] [address] [place] [address], [place] [address] Oct, [facility] [address] [id number] [address] [place] [address], [place] [address] Oct, [facility] [address] [id number] [address] [place] [address], [place] [address] Sep, [facility] [address] [id number] [address] [place] [address], [place] [address] Sep, [facility] [address] [id number] [address] [place] [address], [place] [address] Aug, [facility] [address] [id number] [address] [place] [place] [address], [place] [address] Aug, [facility] [address] [id number] [address] [place] [place] [address], [place] [address] 30 Jul, 2014 [facility] [address] [id number] [address] [place] [place] [address], [place] [address] 30 Jul, 2013 [facility] [address] [id number] [address] [place] [place] [address], [place] [address] 16 Jul, 2014 [facility] [address] [id number] [address] [place] [place] [address], [place] [address] 16 Jul, 2014 [facility] [address] [id number] [address] [place] [address], [place] [address] 15 Jul, 2014 [facility] [address] [id number] [address] [place] [place] [address], [place] [address] 12 Jul, 2014 [facility] [address] [id number] [facility] [place] [address] 12 Jul, 2014 [facility] [address] [id number] [address] [place] [address], [place] [address] Jul, [facility] [address] [id number] [facility] [place] [address] Jul, 2013 [facility] [address] [id number] [address] [place] [place] [address], [place] [address] Jul, [facility] [address] [id number] [address] [place] [place] [address], [place] [address] Jul, [facility] [address] [id number] [address] [place] [place] [address], [place] [address] Jul, [facility] [address] [id number] [address] [place] [place] [address], [place] [address] Jul, [facility] [address] [id number] [address] [place] [place] [address], [place] [address] Jun, [facility] [address] [id number] [address] [place] [place] [address], [place] [address] Jun, [facility] [address] [id number] [address] [place] [place] [address], [place] [address] Jun, [facility] [address] [id number] [address] [place] [place] [address], [place] [address] Jun, [facility] [address] [id number] [address] [place] [place] [address], [place] [address] Jun, [facility] [address] [id number] [address] [place] [place] [address], [place] [address] Jun, [facility] [address] [id number] [address] [place] [place] [address], [place] [address] Jun, [facility] [address] [id number] [address] [place] [place] [address], [place] [address] Jun, [facility] [address] [id number] [address] [place] [place] [address], [place] [address] May, [facility] [address] [id number] [address] [place] [place] [address], [place] [address] May, [facility] [address] [id number] [address] [place] [place] [address], [place] [address] Apr, [facility] [address] [id number] [address] [place] [place] [address], [place] [address] Apr, [facility] [address] [id number] [address] [place] [place] [address], [place] [address] Apr, [facility] [address] [id number] [address] [place] [address], [place] [address] Apr, [facility] [address] [id number] [address] [place] [place] [address], [place] [address] March, [facility] [address] [id number] [address] [place] [place] [address], [place] [address] March, [facility] [address] [id number] [address] [place] [place] [address], [place] [address] March, [facility] [address] [id number] [address] [place] [place] [address], [place] [address] March, [facility] [address] [id number] [address] [place] [place] [address], [place] [address] March, [facility] [address] [id number] [address] [place] [place] [address], [place] [address] March, [facility] [address] [id number] [address] [place] [place] [address], [place] [address] March, [facility] [address] [id number] [address] [place] [place] [address], [place] [address] March, [facility] [address] [id number] [address] [place] [place] [address], [place] [address] March, [facility] [address] [id number] [address] [place] [place] [address], [place] [address] March, [facility] [address] [id number] [address] [place] [place] [address], [place] [address] March, [facility] [address] [id number] [address] [place] [place] [address], [place] [address] Nov, [facility] [address] [id number] [address] [place] [place] [address], [place] [address] Nov, [facility] [address] [id number] [address] [place] [place] [address], [place] [address] Nov, [facility] [address] [id number] [address] [place] [place] [address], [place] [address] Oct, [facility] [address] [id number] [address] [place] [place] [address], [place] [address] Oct, [facility] [address] [id number] [address] [place] [place] [address], [place] [address] Aug, [facility] [address] [id number] [address] [place] [place] [address], [place] [address] Aug, [facility] [address] [id number] [place] [id number] Jun, [facility] [place] [address] [id number] [place] [id number] Apr, [facility] [address] [id number] [address] [place] [place] [address], [place] [address] Apr, [facility] [address] [id number] [address] [place] [place] [address], [place] [address] Apr, [facility] [place] [address] [id number] [place] [id number] March, [facility] [place] [address] [id number] [place] [id number] Feb, [facility] [place] [address] [id number] [place] [id number] Jan, 2013 [facility] [address] [id number] [address] [place] [place] [address], [place] [address] Jan, [facility] [address] [id number] [address] [place] [place] [address], [place] [address] Jan, [facility] [address] [id number] [address] [place] [address], [place] [address] Jan, [facility] [place] [address] [id number] [place] [id number] Dec, [facility] [place] [address] [id number] [place] [id number] Dec, [facility] [address] [id number] [address] [place] [address], [place] [address] Dec, [facility] [address] [id number] [address] [place] [address], [place] [address] Dec, [facility] [address] [facility] [id number] [address] [place] [place] [address], [place] [address] Dec, [facility] [address] [facility] [id number] [address] [place] [place] [address], [place] [address] Nov, [facility] [address] [facility] [id number] [address] [place] [place] [address], [place] [address] Nov, [facility] [place] [address] [id number] [place] [id number] Nov, [facility] [address] [facility] [id number] [address] [place] [address], [place] [address] Nov, [facility] [place] [address] [id number] [place] [id number] Nov, [facility] [place] [address] [id number] [place] [id number] Nov, [facility] [place] [address] [id number] [place] [id number] Oct, [facility] [place] [address] [id number] [place] [id number] Oct, [facility] [address] [id number] [address] [place] [address], [place] [address] Oct, [facility] [address] [facility] [id number] [address] [place] [address], [place] [address] Oct, [facility] [address] [facility] [id number] [address] [place] [address] Oct, [facility] [address] [facility] [id number] [address] [place] [address] Sep, [facility] [address] [facility] [id number] [address] [place] [address] Sep, [facility] [place] [address] [id number] [place] [id number] Sep, [facility] [place] [address] [id number] [place] [id number] Sep, [facility] [place] [address] [id number] [place] [id number] Sep, [facility] [address] [facility] [id number] [address] [place] [address] Sep, [facility] [address] [facility] [id number] [address] [place] [address] Aug, [facility] [place] [address] [id number] [place] [id number] Aug, [facility] [address] [facility] [id number] [address] [place] [address] Aug, [facility] [place] [address] [id number] [place] [id number] Jul, [facility] [place] [address] [id number] [place] [id number] Jul, [facility] [place] [address] [id number] [place] [id number] Jun, [facility] [place] [address] [id number] [place] [id number] May, [facility] [place] [address] [id number] [place] [id number] Feb, [facility] [place] [address] [id number] [place] [id number] Feb, [facility] [place] [address] [id number] [place] [id number] Feb, [facility] [address] [id number] [place] [id number] Dec, [facility] [address] [id number] [place] [id number] Dec, [facility] [address] [id number] [address] [place] [id number] Oct, [facility] [address] [id number] [address] [place] [id number] Sep, [facility] [address] [id number] [address] [place] [id number] Sep, [facility] [address] [id number] [address] [place] [id number] Sep, [facility] [address] [id number] [address] [place] [id number] Sep, [facility] [address] [id number] [address] [place] [id number] March, [facility] [address] [id number] [address] [place] [id number] Sep, [facility] [address] [id number] [address] [place] [phone] Jul, [facility] [address] [id number] [address] [place] [id number] May, [facility] [address] [id number] [address] [place] [id number] Jan, [facility] [address] [id number] [address] [place] [id number] Sep, [facility] [address] [id number] [address] [place] [id number] Aug, IMMUNIZATIONS No Known Immunizations SOCIAL HISTORY Never Assessed REASON FOR VISIT EMR-[facility] [place] [facility] PLAN OF CARE VITAL SIGNS MEDICATIONS Medication Instructions Dosage Frequency Start Date End Date Duration S faye amitriptyline 25 mg 1-2 tablet by Oral route 1 time pe r day at hs for sleep 12 Nov, 2014 Active Latuda 20 mg 1 Tablet by Oral route 1 time per day r2014 Active Plavix 75 mg take 1 tablet (75 mg) by oral route once daily March, Active Fish Oil Concentrate 1000 mg Nov, Active Lyrica 75 mg 2 times per day Oct, Active Toprol XL 25 mg take 1 tablet (25 mg) by oral route once d aily March, Active Aspirin 81 mg take 1 tablet (81 mg) by oral route once daily Nov, Active Zocor 10 mg take 1 tablet (10 mg) by oral route once daily in the evening March, Active Crestor 20 mg take 1 tablet (20 mg) by oral route once daily March, Active Xanax 0.25 mg take 1 tablet by Oral route 2 times per day Jul, Active Midrin 65-100-325 mg 2 Capsule by Oral r oute 1 time per day PRN with onset of headache and then 1 every hour. (see note) Oct, Active Ferrous Sulfate 325 mg (65 mg iron) 1 Ta blet by Oral route 2 times per day give with food Apr, Active sertraline 100 mg 1 tablet by Oral route 1 time per day Dec, Active RESULTS No Results PROCEDURES No Known procedures [...]
--- OUTSIDE RECORDS SUMMARY | 2020-05-31 11:47 | XMS REPORT ---
Author Author Janice Jeane Doctor Organization [facility] Address Unknown Phone Unavailable Care Team Providers Care Kiss Setter Hand Name Role Phone Migration, Doctor Unavailable Unavailable PROBLEMS Type Condition ICD9-CM Code IQY19-EL Code Onset Dates Condition S tatus SNOMED Code Problem Depression F32.9 Active 83017664 Problem Anxiety F41.9 Active 78013760 Problem Environmental allergies Z91.09 Active 077525879 Problem Atherosclerotic heart diseas e of [place] coronary artery without angina pectoris I25.10 Active 237654648 Problem Lumbago with sciatica, unspecified side M54.40 Active 331583978 Problem Chronic pain syndrome G89.4 Active 697133609 Problem Hypercholesterolemia with hypertriglyceridemia E78 .2 Active 583281421 Problem Major depressive disorder, recurrent sev ere without psychotic features F33.2 Active 79680639 Problem Dysthymia (or depressive neurosis) F34.1 Active 73052566 Problem Cigarette nicotine dependence without complication F17.210 Active 50819545 Problem Alcohol use disorder, moderate, in sustained remission F10.21 Active 46567587 Problem Cannabis use disorder, mild, abuse F12.10 Active 41053801 Problem Elevated blood pressure I10 Active 75748854 ALLERGIES No Information ENCOUNTERS Encounter Location Date Diagnosis [facility] [address] [id number] [address] [place] [address] Dec, Major depressive disorder, r ecurrent severe without psychotic features F33.2 ; Chronic pain syndrome G89.4 and Encounter for immunization Z23 [facility] [address] [id number] [place] [id number] Aug, Elevated blood pressure I10 [facility] [address] [facility] [id number] [address] [place] [address] May, Hypercholesterolemia with hy pertriglyceridemia E78.2 and Atherosclerotic heart disease of [place] coronary artery without angina pectoris I25.10 [facility] [address] [facility] [id number] [address] [place] [address] March, Lumbago with sciatica, unspe cified side M54.40 ; Environmental allergies Z91.09 ; Hypercholesterolemia with hypertriglyceridemia E78.2 and Atherosclerotic heart disease of [place] coronary artery without angina pectoris I25.10 [facility] [address] [id number] [address] [place] [address] 14 Dec, 2017 Severe episode of recurrent major depressive disorder, without psychotic features F33.2 ; Alcohol use disorder, moderate, in sustained remission F10.21 and Cannabis use disorder, mild, abuse F12.10 [facility] [address] [facility] [id number] [address] [place] [address] 12 Dec, 2017 Severe episode of recurrent major depressive disorder, without psychotic features F33.2 [place] [address] [facility] [id number] [address] [place] [address] Nov, [place] [address] [id number] [address] [place] [id number] 08 Nov, 2017 Atherosclerotic heart diseas e of [place] coronary artery without angina pectoris I25.10 ; Hypercholesterolemia with hypertriglyceridemia E78.2 ; Depression F32.9 and Cigarette nicotine dependence without complication F17.210 [place] [address] [facility] [id number] [address] [place] [address] Oct, [facility] [address] [id number] [address] [place] [address] Jul, [facility] [address] [id number] [address] [place] [address] Jun, [facility] [address] [id number] [address] [place] [address] Apr, Pain in thoracic spine M54.6 and Lumbago with sciatica, unspecified side M54.40 [facility] [address] [id number] [address] [place] [address] March, [place] [address] [facility] [id number] [address] [place] [address] March, Depression F32.9 [place] [address] [facility] [id number] [address] [place] [address] March, Anxiety F41.9 ; Depression F 32.9 ; Atherosclerotic heart disease of [place] coronary artery without angina pectoris I25.10 ; Hypercholesterolemia with hypertriglyceridemia E78.2 ; Right wrist tendonitis M77.8 and Environmental allergies Z91.09 [facility] [address] [id number] [place] [facility] [id number] Dec, [place] [address] [id number] [address] [place] [address] Nov, Iron deficiency anemia, unsp ecified iron deficiency anemia type D50.9 ; Anxiety F41.9 ; Dysthymia (or depressive neurosis) F34.1 and Hypercholesterolemia with hypertriglyceridemia E78.2 [place] [id number] [address] [place] [address] Oct, [place] [address] [address] Oct, [address] [address] Oct, Dysthymia (or depressive sherice rosis) F34.1 ; Atherosclerotic heart disease of [place] coronary artery without angina pectoris I25.10 ; Coronary atherosclerosis due to lipid rich plaque I25.83 ; Hypercholesterolemia with hypertriglyceridemia E78.2 ; Iron deficiency anemia, unspecified iron deficiency anemia type D50.9 ; Hospital discharge follow-up Z09 ; History of PID Z87.42 ; Environmental allergies Z91.09 and Dysuria R30.0 [place] [address] [id number] [address] [place] [address] Sep, [place] [address] [address] Sep, [place] [address] [id number] [address] [place] [address] Aug, Dysthymia F34.1 and Anxiety F41.9 [place] [address] [place] [id number] [address] [place] [address] March, Coronary artery disease invo lving [place] coronary artery, angina presence unspecified, unspecified whether w[place] or transplanted heart I25.10 ; Bipolar 1 disorder, depressed F31.9 ; Anxiety F41.9 and Dysthymia F34.1 [place] [address] [address] 04 Feb, 2016 Depression F32.9 and Stomach pain R10.9 [place] [address] [address] Jan, Hyperlipidemia 272.4 [place] [address] [address] 17 Dec, 2015 [place] [address] [address] 11 Dec, 2015 Major depressive disorder, r ecurrent episode, unspecified 296.30 ; Anxiety F41.9 ; Grief F43.20 and Dysthymia F34.1 [place] [address] [address] Dec, Anxiety F41.9 and Grief F43. 20 [place] [address] [address] Oct, Insomnia, unspecified G47.00 and Anxiety F41.9 [place] [address] [address] Oct, Dysthymia F34.1 ; Right shou lder pain M25.511 ; Sciatica, right M54.31 and Iron deficiency anemia, unspecified iron deficiency anemia type D50.9 [place] [address] [address] Sep, [place] [address] [address] Sep, Grief F43.20 [place] [address] [id number] [address] [place] [address] Sep, [facility] [address] [address] Sep, [facility] [address] [id number] [place] [address] Sep, Hyperlipidemia E78.5 ; CAD ( coronary artery disease) I25.10 and HTN (hypertension) I10 [facility] [address] [address] Aug, Allergic rhinitis, unspecifi ed allergic rhinitis type J30.9 [facility] [address] [address] Aug, Left-sided low back pain wit h right-sided sciatica M54.41 and Hyperlipidemia, unspecified hyperlipidemia E78.5 [facility] [address] [address] Aug, Neck pain M54.2 and Low back pain M54.5 [facility] [address] [address] Jun, [facility] [address] [address] Jun, [facility] [address] [address] Jun, CAD (coronary artery disease ) 414.00 ; Hyperlipidemia 272.4 and Anemia 285.9 [facility] [address] [address] Feb, [facility] [address] [id number] [place] [address] Feb, [facility] [address] [id number] [address] [place] [address] Jan, [facility] [address] [id number] [place] [address] Jan, [facility] [address] [id number] [address] [place] [address], [place] [address] Jan, [facility] [address] [id number] [address] [place] [address], [place] [address] Jan, [facility] [address] [id number] [address] [place] [address], [place] [address] Dec, 2014 [facility] [address] [id number] [address] [place] [address], [place] [address] Dec, 2014 [facility] [address] [id number] [address] [place] [address], [place] [address] Dec, 2014 [facility] [address] [id number] [address] [place] [address], [place] [address] Dec, 2014 [facility] [address] [id number] [address] [place] [address], [place] [address] Dec, 2014 [facility] [address] [id number] [address] [place] [address], [place] [address] Dec, 2014 [facility] [address] [id number] [address] [place] [address], [place] [address] Dec, 2014 [facility] [address] [id number] [address] [place] [address], [place] [address] Dec, [facility] [address] [id number] [address] [place] [address], [place] [address] Dec, 2014 [facility] [address] [id number] [address] [place] [address], [place] [address] Dec, 2014 [facility] [address] [id number] [address] [place] [address], [place] [address] Dec, 2014 [facility] [address] [id number] [address] [place] [address] Dec, 2014 [facility] [address] [id number] [address] [place] [address] Nov, [facility] [address] [id number] [address] [place] [address], [place] [address] Nov, [facility] [address] [id number] [address] [place] [address], [place] [address] Nov, [facility] [address] [id number] [address] [place] [address], [place] [address] Nov, [facility] [address] [id number] [address] [place] [address], [place] [address] Oct, [facility] [address] [id number] [address] [place] [address], [place] [address] Oct, [facility] [address] [id number] [address] [place] [address], [place] [address] Sep, [facility] [address] [id number] [address] [place] [address], [place] [address] Sep, [facility] [address] [id number] [address] [place] [address], [place] [address] Aug, [facility] [address] [id number] [address] [place] [address], [place] [address] Aug, [facility] [address] [id number] [address] [place] [address], [place] [address] 30 Jul, 2014 [facility] [address] [id number] [address] [place] [address], [place] [address] 30 Jul, 2014 [facility] [address] [id number] [address] [place] [address], [place] [address] 16 Jul, 2013 [facility] [address] [id number] [address] [place] [address], [place] [address] 16 Jul, 2014 [facility] [address] [id number] [address] [place] [address], [place] [address] 15 Jul, 2014 [facility] [address] [id number] [address] [place] [address], [place] [address] 12 Jul, 2014 [facility] [address] [id number] [address] [place] [address], [place] [address] Jul, [facility] [address] [id number] [facility] [place] [address] Jul, [facility] [address] [id number] [facility] [place] [address] Jul, [facility] [address] [id number] [facility] [place] [address] Jul, [facility] [address] [id number] [address] [place] [address], [place] [address] Jul, [facility] [address] [id number] [address] [place] [address], [place] [address] Jul, [facility] [address] [id number] [address] [place] [address], [place] [address] Jul, [facility] [address] [id number] [address] [place] [address], [place] [address] Jun, [facility] [address] [id number] [address] [place] [address], [place] [address] Jun, [facility] [address] [id number] [address] [place] [address], [place] [address] Jun, [facility] [address] [id number] [address] [place] [address], [place] [address] Jun, [facility] [address] [id number] [address] [place] [address], [place] [address] Jun, [facility] [address] [id number] [address] [place] [address], [place] [address] Jun, [facility] [address] [id number] [address] [place] [address], [place] [address] Jun, [facility] [address] [id number] [address] [place] [address], [place] [address] Jun, [facility] [address] [id number] [address] [place] [address], [place] [address] May, [facility] [address] [id number] [facility] [place] [address] May, [facility] [address] [id number] [facility] [place] [address] Apr, [facility] [address] [id number] [facility] [place] [address] Apr, [facility] [address] [id number] [address] [place] [address], [place] [address] Apr, [facility] [address] [id number] [facility] [place] [address] Apr, [facility] [address] [id number] [address] [place] [address], [place] [address] March, [facility] [address] [id number] [address] [place] [address], [place] [address] March, [facility] [address] [id number] [address] [place] [address], [place] [address] March, [facility] [address] [id number] [address] [place] [address], [place] [address] March, [facility] [address] [id number] [address] [place] [address], [place] [address] March, [facility] [address] [id number] [address] [place] [address], [place] [address] March, [facility] [address] [id number] [address] [place] [address], [place] [address] March, [facility] [address] [id number] [address] [place] [address], [place] [address] March, [facility] [address] [id number] [address] [place] [address], [place] [address] March, [facility] [address] [id number] [address] [place] [address], [place] [address] March, [facility] [address] [id number] [address] [place] [address], [place] [address] March, [facility] [address] [id number] [address] [place] [address], [place] [address] Nov, [facility] [address] [id number] [address] [place] [address], [place] [address] Nov, [facility] [address] [id number] [address] [place] [address], [place] [address] Nov, [facility] [address] [id number] [address] [place] [address], [place] [address] Oct, [facility] [address] [id number] [address] [place] [address], [place] [address] Oct, [facility] [address] [id number] [address] [place] [address], [place] [address] Aug, [facility] [address] [id number] [address] [place] [address], [place] [address] Aug, [facility] [address] [id number] [place] [id number] Jun, [facility] [place] [address] [id number] [place] [id number] Apr, [facility] [address] [id number] [address] [place] [address], [place] [address] Apr, [facility] [address] [id number] [address] [place] [address], [place] [address] Apr, [facility] [place] [address] [id number] [place] [id number] March, [facility] [place] [address] [id number] [place] [id number] Feb, [facility] [place] [address] [id number] [place] [id number] Jan, [facility] [address] [id number] [address] [place] [address], [place] [address] Jan, [facility] [address] [id number] [address] [place] [address], [place] [address] Jan, [facility] [address] [id number] [address] [place] [address], [place] [address] Jan, [facility] [place] [address] [id number] [place] [id number] Dec, [facility] [place] [address] [id number] [place] [id number] Dec, [facility] [address] [id number] [address] [place] [address], [place] [address] Dec, [facility] [address] [id number] [address] [place] [address], [place] [address] Dec, [facility] [address] [id number] [address] [place] [address], [place] [address] Dec, [facility] [address] [facility] [id number] [address] [place] [address], [place] [address] Nov, [facility] [address] [id number] [address] [place] [address], [place] [address] Nov, [facility] [place] [address] [id number] [place] [id number] Nov, [facility] [address] [id number] [address] [place] [address], [place] [address] Nov, [facility] [place] [address] [id number] [place] [id number] Nov, [facility] [place] [address] [id number] [place] [id number] Nov, [facility] [place] [address] [id number] [place] [id number] Oct, [facility] [place] [address] [id number] [place] [id number] Oct, [facility] [address] [id number] [address] [place] [address], [place] [address] Oct, [facility] [address] [id number] [address] [place] [address], [place] [address] Oct, [facility] [address] [id number] [address] [place] [address] Oct, [facility] [address] [facility] [id number] [address] [place] [address] Sep, [facility] [address] [facility] [id number] [address] [place] [address] Sep, [facility] [place] [address] [id number] [place] [id number] Sep, [facility] [place] [address] [id number] [place] [id number] Sep, [facility] [place] [address] [id number] [place] [id number] Sep, [facility] [address] [facility] [id number] [address] [place] [address] Sep, [facility] [address] [facility] [id number] [address] [place] [address] Aug, [facility] [place] [address] [id number] [place] [id number] Aug, [facility] [address] [facility] [id number] [address] [place] [address] Aug, [facility] [place] [address] [id number] [place] [id number] Jul, [facility] [place] [address] [id number] [place] [id number] Jul, [facility] [place] [address] [id number] [place] [id number] Jun, [facility] [place] [address] [id number] [place] [id number] May, [facility] [place] [address] [id number] [place] [id number] Feb, [facility] [place] [address] [id number] [place] [id number] Feb, [facility] [place] [address] [id number] [place] [id number] Feb, [facility] [place] [address] [id number] [place] [id number] Dec, [facility] [address] [id number] [place] [id number] Dec, [facility] [address] [id number] [address] [place] [address] Oct, [facility] [address] [id number] [address] [place] [address] Sep, [facility] [address] [id number] [address] [place] [address] Sep, [facility] [address] [id number] [address] [place] [phone] Sep, [facility] [address] [id number] [address] [place] [phone] Sep, [facility] [address] [id number] [address] [place] [phone] March, [facility] [address] [id number] [address] [place] [phone] Sep, [facility] [address] [id number] [address] [place] [phone] Jul, [facility] [address] [id number] [address] [place] [phone] May, [facility] [address] [id number] [address] [place] [phone] Jan, [facility] [address] [id number] [address] [place] [phone] Sep, [facility] [address] [id number] [address] [place] [phone] Aug, IMMUNIZATIONS No Known Immunizations SOCIAL HISTORY Never Assessed REASON FOR VISIT [facility] [place] PLAN OF CARE VITAL SIGNS MEDICATIONS No [...] stents in heart Hospitalization History Pelvic Inflammatory Disease-[facility] 09/22 Hospitalization History 2 inpatient psychiatric treatments, suicide attempts
--- OUTSIDE RECORDS SUMMARY | 2020-05-31 11:47 | XMS REPORT ---
Author Author Janice Jeane Doctor Organization [facility] Address Unknown Phone Unavailable Care Team Providers Care Registered Nurse Cardiovascular Icu Name Role Phone Migration, Doctor Unavailable Unavailable PROBLEMS Type Condition ICD9-CM Code [id number] Code Onset Dates Condition S tatus SNOMED Code Problem Depression F32.9 Active 58273478 Problem Anxiety F41.9 Active 82836584 Problem Environmental allergies Z91.09 Active 941186593 Problem Atherosclerotic heart 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 Active 811481864 Problem Lumbago with sciatica, unspecified side M54.40 Active 802485958 Problem Chronic pain syndrome G89.4 Active 555909976 Problem Hypercholesterolemia with hypertriglyceridemia E78 .2 Active 800670955 Problem Major depressive disorder, recurrent sev ere without psychotic features F33.2 Active 98145285 Problem Dysthymia (or depressive neurosis) F34.1 Active 13298466 Problem Cigarette nicotine dependence without complication F17.210 Active 49020030 Problem Alcohol use disorder, moderate, in sustained remission F10.21 Active 61468589 Problem Cannabis use disorder, mild, abuse F12.10 Active 39856668 Problem Elevated blood pressure I10 Active 25319586 ALLERGIES No Information ENCOUNTERS Encounter Location Date Diagnosis [facility] [address] [id number] [address] [place] [id number] Dec, Major depressive disorder, r ecurrent severe without psychotic features F33.2 ; Chronic pain syndrome G89.4 and Encounter for immunization Z23 [facility] [address] [id number] [place] [id number] Aug, Elevated blood pressure I10 [facility] [address] [facility] [place] [id number] [address] [place] [phone] May, Hypercholesterolemia with hy pertriglyceridemia E78.2 and Atherosclerotic heart disease of [place] coronary artery without angina pectoris I25.10 [facility] [address] [facility] [place] [id number] [address] [place] [address] March, Lumbago with sciatica, unspe cified side M54.40 ; Environmental allergies Z91.09 ; Hypercholesterolemia with hypertriglyceridemia E78.2 and Atherosclerotic heart disease of [place] coronary artery without angina pectoris I25.10 [facility] [address] [id number] [address] [place] [id number] 14 Dec, 2017 Severe episode of recurrent major depressive disorder, without psychotic features F33.2 ; Alcohol use disorder, moderate, in sustained remission F10.21 and Cannabis use disorder, mild, abuse F12.10 [facility] [address] [facility] [place] [id number] [address] [place] [id number] 12 Dec, 2017 Severe episode of recurrent major depressive disorder, without psychotic features F33.2 [place] [address] [facility] [place] [id number] [address] [place] [phone] Nov, [place] [address] [id number] [address] [place] [id number] 08 Nov, 2017 Atherosclerotic heart 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 ; Hypercholesterolemia with hypertriglyceridemia E78.2 ; Depression F32.9 and Cigarette nicotine dependence without complication F17.210 [place] [address] [facility] [place] [id number] [address] [place] [id number] Oct, [facility] [address] [id number] [address] [place] [address] Jul, [facility] [address] [id number] [address] [place] [address] Jun, [facility] [address] [id number] [address] [place] [phone] Apr, Pain in thoracic spine M54.6 and Lumbago with sciatica, unspecified side M54.40 [facility] [address] [id number] [address] [place] [address] March, [place] [address] [facility] [place] [id number] [address] [place] [address] March, Depression F32.9 [place] [address] [facility] [place] [id number] [address] [place] [address] March, Anxiety F41.9 ; Depression F 32.9 ; Atherosclerotic heart disease of [place] coronary artery without angina pectoris I25.10 ; Hypercholesterolemia with hypertriglyceridemia E78.2 ; Right wrist tendonitis M77.8 and Environmental allergies Z91.09 [facility] [address] [id number] [place] [facility] [id number] Dec, [place] [address] [id number] [address] [place] [address] Nov, Iron deficiency anemia, unsp ecified iron deficiency anemia type D50.9 ; Anxiety F41.9 ; Dysthymia (or depressive neurosis) F34.1 and Hypercholesterolemia with hypertriglyceridemia E78.2 [place] [id number] [address] [place] [address] Oct, [place] [address] [address] Oct, [address] [address] Oct, Dysthymia (or depressive sherice rosis) F34.1 ; Atherosclerotic heart disease of [place] coronary artery without angina pectoris I25.10 ; Coronary atherosclerosis due to lipid rich plaque I25.83 ; Hypercholesterolemia with hypertriglyceridemia E78.2 ; Iron deficiency anemia, unspecified iron deficiency anemia type D50.9 ; Hospital discharge follow-up Z09 ; History of PID Z87.42 ; Environmental allergies Z91.09 and Dysuria R30.0 [place] [address] [id number] [address] [place] [address] Sep, [place] [address] [address] Sep, [place] [address] [id number] [address] [place] [address] Aug, Dysthymia F34.1 and Anxiety F41.9 [place] [address] [address] [id number] [address] [place] [address] March, Coronary artery disease invo lving [place] coronary artery, angina presence unspecified, unspecified whether [place] or transplanted heart I25.10 ; Bipolar 1 disorder, depressed F31.9 ; Anxiety F41.9 and Dysthymia F34.1 [place] [address] [address] 04 Feb, 2016 Depression F32.9 and Stomach pain R10.9 [place] [address] [address] Jan, Hyperlipidemia 272.4 [place] [address] [id number] 17 Dec, 2015 [place] [address] [address] 11 Dec, 2015 Major depressive disorder, r ecurrent episode, unspecified 296.30 ; Anxiety F41.9 ; Grief F43.20 and Dysthymia F34.1 [place] [address] [address] Dec, Anxiety F41.9 and Grief F43. 20 [place] [address] [address] Oct, Insomnia, unspecified G47.00 and Anxiety F41.9 [place] [address] [address] Oct, Dysthymia F34.1 ; Right shou lder pain M25.511 ; Sciatica, right M54.31 and Iron deficiency anemia, unspecified iron deficiency anemia type D50.9 [place] [address] [address] Sep, [place] [address] [address] Sep, Grief F43.20 [place] [address] [id number] [address] [place] [address] Sep, [facility] [address] [id number] Sep, [facility] [id number] [place] [address] Sep, Hyperlipidemia E78.5 ; CAD ( coronary artery disease) I25.10 and HTN (hypertension) I10 [facility] [address] [address] Aug, Allergic rhinitis, unspecifi ed allergic rhinitis type J30.9 [facility] [address] [address] Aug, Left-sided low back pain wit h right-sided sciatica M54.41 and Hyperlipidemia, unspecified hyperlipidemia E78.5 [facility] [address] [address] Aug, Neck pain M54.2 and Low back pain M54.5 [facility] [address] [id number] Jun, [facility] [address] [address] Jun, [facility] [address] [address] Jun, CAD (coronary artery disease ) 414.00 ; Hyperlipidemia 272.4 and Anemia 285.9 [facility] [address] [address] Feb, [facility] [id number] [place] [address] Feb, [facility] [address] [id number] [address] [place] [address] Jan, [facility] [id number] [place] [address] Jan, [facility] [address] [id number] [address] [place] [address], [place] [address] Jan, [facility] [address] [id number] [address] [place] [address], [place] [address] Jan, [facility] [address] [id number] [address] [place] [address], [place] [address] Dec, 2014 [facility] [address] [id number] [address] [place] [address], [place] [address] Dec, 2014 [facility] [address] [id number] [address] [place] [address], [place] [address] Dec, 2014 [facility] [address] [id number] [address] [place] [address], [place] [address] Dec, 2014 [facility] [address] [id number] [address] [place] [address], [place] [address] Dec, 2014 [facility] [address] [id number] [address] [place] [address], [place] [address] Dec, 2014 [facility] [address] [id number] [address] [place] [address], [place] [address] Dec, 2014 [facility] [address] [id number] [address] [place] [address], [place] [address] Dec, [facility] [address] [id number] [address] [place] [address], [place] [address] Dec, 2014 [facility] [address] [id number] [address] [place] [address], [place] [address] Dec, 2014 [facility] [address] [id number] [address] [place] [address], [place] [address] Dec, 2014 [facility] [address] [id number] [address] [place] [address] Dec, 2014 [facility] [address] [id number] [address] [place] [phone] Nov, [facility] [address] [id number] [address] [place] [address], [place] [address] Nov, [facility] [address] [id number] [address] [place] [address], [place] [address] Nov, [facility] [address] [id number] [address] [place] [address], [place] [address] Nov, [facility] [address] [id number] [address] [place] [address], [place] [address] Oct, [facility] [address] [id number] [address] [place] [address], [place] [address] Oct, [facility] [address] [id number] [address] [place] [address], [place] [address] Sep, [facility] [address] [id number] [address] [place] [address], [place] [address] Sep, [facility] [address] [id number] [address] [place] [address], [place] [address] Aug, [facility] [address] [id number] [address] [place] [address], [place] [address] Aug, [facility] [address] [id number] [address] [place] [address], [place] [address] 30 Jul, 2014 [facility] [address] [id number] [address] [place] [address], [place] [address] 30 Jul, 2014 [facility] [address] [id number] [address] [place] [address], [place] [address] 16 Jul, 2013 [facility] [address] [id number] [address] [place] [address], [place] [address] 16 Jul, 2014 [facility] [address] [id number] [address] [place] [address], [place] [address] 15 Jul, 2014 [facility] [address] [id number] [address] [place] [address], [place] [address] 12 Jul, 2014 [facility] [address] [id number] [address] [place] [address], [place] [address] Jul, [facility] [address] [id number] [facility] [place] [address] Jul, [facility] [address] [id number] [facility] [place] [address] Jul, [facility] [address] [id number] [facility] [place] [address] Jul, [facility] [address] [id number] [address] [place] [address], [place] [address] Jul, [facility] [address] [id number] [address] [place] [address], [place] [address] Jul, [facility] [address] [id number] [address] [place] [address], [place] [address] Jul, [facility] [address] [id number] [address] [place] [address], [place] [address] Jun, [facility] [address] [id number] [address] [place] [address], [place] [address] Jun, [facility] [address] [id number] [address] [place] [address], [place] [address] Jun, [facility] [address] [id number] [address] [place] [address], [place] [address] Jun, [facility] [address] [id number] [address] [place] [address], [place] [address] Jun, [facility] [address] [id number] [address] [place] [address], [place] [address] Jun, [facility] [address] [id number] [address] [place] [address], [place] [address] Jun, [facility] [address] [id number] [address] [place] [address], [place] [address] Jun, [facility] [address] [id number] [address] [place] [address], [place] [address] May, [facility] [address] [id number] [facility] [place] [address] May, [facility] [address] [id number] [facility] [place] [address] Apr, [facility] [address] [id number] [facility] [place] [address] Apr, [facility] [address] [id number] [address] [place] [address], [place] [address] Apr, [facility] [address] [id number] [facility] [place] [address] Apr, [facility] [address] [id number] [address] [place] [address], [place] [address] March, [facility] [address] [id number] [address] [place] [address], [place] [address] March, [facility] [address] [id number] [address] [place] [address], [place] [address] March, [facility] [address] [id number] [address] [place] [address], [place] [address] March, [facility] [address] [id number] [address] [place] [address], [place] [address] March, [facility] [address] [id number] [address] [place] [address], [place] [address] March, [facility] [address] [id number] [address] [place] [address], [place] [address] March, [facility] [address] [id number] [address] [place] [address], [place] [address] March, [facility] [address] [id number] [address] [place] [address], [place] [address] March, [facility] [address] [id number] [address] [place] [address], [place] [address] March, [facility] [address] [id number] [address] [place] [address], [place] [address] March, [facility] [address] [id number] [address] [place] [address], [place] [address] Nov, [facility] [address] [id number] [address] [place] [address], [place] [address] Nov, [facility] [address] [id number] [address] [place] [address], [place] [address] Nov, [facility] [address] [id number] [address] [place] [address], [place] [address] Oct, [facility] [address] [id number] [address] [place] [address], [place] [address] Oct, [facility] [address] [id number] [address] [place] [address], [place] [address] Aug, [facility] [address] [id number] [address] [place] [address], [place] [address] Aug, [facility] [address] [id number] [place] [id number] Jun, [facility] [place] [address] [id number] [place] [id number] Apr, [facility] [address] [id number] [address] [place] [address], [place] [address] Apr, [facility] [address] [id number] [address] [place] [address], [place] [address] Apr, [facility] [place] [address] [id number] [place] [id number] March, [facility] [place] [address] [id number] [place] [id number] Feb, [facility] [place] [address] [id number] [place] [id number] Jan, [facility] [address] [id number] [address] [place] [address], [place] [address] Jan, [facility] [address] [id number] [address] [place] [address], [place] [address] Jan, [facility] [address] [id number] [address] [place] [address], [place] [address] Jan, [facility] [place] [address] [id number] [place] [id number] Dec, [facility] [place] [address] [id number] [place] [id number] Dec, [facility] [address] [id number] [address] [place] [address], [place] [address] Dec, [facility] [address] [id number] [address] [place] [address], [place] [address] Dec, [facility] [address] [id number] [address] [place] [address], [place] [address] Dec, [facility] [address] [facility] [id number] [address] [place] [address], [place] [address] Nov, [facility] [address] [id number] [address] [place] [address], [place] [address] Nov, [facility] [place] [address] [id number] [place] [id number] Nov, [facility] [address] [id number] [address] [place] [address], [place] [address] Nov, [facility] [place] [address] [id number] [place] [id number] Nov, [facility] [place] [address] [id number] [place] [id number] Nov, [facility] [place] [address] [id number] [place] [id number] Oct, [facility] [place] [address] [id number] [place] [id number] Oct, [facility] [address] [id number] [address] [place] [address], [place] [address] Oct, [facility] [address] [id number] [address] [place] [address], [place] [address] Oct, [facility] [address] [id number] [address] [place] [address] Oct, [facility] [address] [facility] [id number] [address] [place] [address] Sep, [facility] [address] [facility] [facility] [id number] [address] [place] [address] Sep, [facility] [place] [address] [id number] [place] [id number] Sep, [facility] [place] [address] [id number] [place] [id number] Sep, [facility] [place] [address] [id number] [place] [id number] Sep, [facility] [address] [facility] [facility] [id number] [address] [place] [address] Sep, [facility] [address] [facility] [place] [id number] [address] [place] [phone] Aug, [facility] [place] [address] [id number] [place] [id number] Aug, [facility] [address] [facility] [place] [id number] [address] [place] [id number] Aug, [facility] [place] [address] [id number] [place] [id number] Jul, [facility] [place] [address] [id number] [place] [id number] Jul, [facility] [place] [address] [id number] [place] [id number] Jun, [facility] [place] [address] [id number] [place] [id number] May, [facility] [place] [address] [id number] [place] [id number] Feb, [facility] [place] [address] [id number] [place] [id number] Feb, [facility] [place] [address] [id number] [place] [id number] Feb, [facility] [place] [address] [id number] [place] [id number] Dec, [facility] [address] [id number] [place] [id number] Dec, [facility] [address] [id number] [address] [place] [phone] Oct, [facility] [address] [id number] [address] [place] [phone] Sep, [facility] [address] [id number] [address] [place] [phone] Sep, [facility] [address] [id number] [address] [place] [id number] Sep, [facility] [address] [id number] [address] [place] [phone] Sep, [facility] [address] [id number] [address] [place] [id number] March, [facility] [address] [id number] [address] [place] [phone] Sep, [facility] [address] [id number] [address] [place] [phone] Jul, [facility] [address] [id number] [address] [place] [id number] May, [facility] [address] [id number] [address] [place] [id number] Jan, [facility] [address] [id number] [address] [place] [phone] Sep, [facility] [address] [id number] [address] [place] [id number] Aug, IMMUNIZATIONS No Known Immunizations SOCIAL HISTORY Never Assessed REASON FOR VISIT [facility] [place] CARE VITAL SIGNS MEDICATIONS No [...] stents in heart Hospitalization History Pelvic Inflammatory Disease-[facility] 09/22 Hospitalization History 2 inpatient psychiatric treatments, suicide attempts
--- OUTSIDE RECORDS SUMMARY | 2020-05-31 11:47 | XMS REPORT ---
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 Active 272158630 Problem Lumbago with sciatica, unspecified side M54.40 Active 960400026 Problem Chronic pain syndrome G89.4 Active 758769779 Problem Hypercholesterolemia with hypertriglyceridemia E78 .2 Active 253745200 Problem Major depressive disorder, recurrent sev ere without psychotic features F33.2 Active 52378590 Problem Dysthymia (or depressive neurosis) F34.1 Active 43673440 Problem Cigarette nicotine dependence without complication F17.210 Active 77360652 Problem Alcohol use disorder, moderate, in sustained remission F10.21 Active 24689843 Problem Cannabis use disorder, mild, abuse F12.10 Active 16889821 Problem Elevated blood pressure I10 Active 78567869 ALLERGIES No Information ENCOUNTERS Encounter Location Date Diagnosis [facility] [address] [id number] [address] [place] [id number] Dec, Major depressive disorder, r ecurrent severe without psychotic features F33.2 ; Chronic pain syndrome G89.4 and Encounter for immunization Z23 [facility] [address] [id number] [place] [id number] Aug, Elevated blood pressure I10 [facility] [address] [facility] [id number] [address] [place] [address] May, Hypercholesterolemia with hy pertriglyceridemia E78.2 and Atherosclerotic heart disease of lummi coronary artery without angina pectoris I25.10 [facility] [address] [facility] [id number] [address] [place] [address] March, Lumbago with sciatica, unspe cified side M54.40 ; Environmental allergies Z91.09 ; Hypercholesterolemia with hypertriglyceridemia E78.2 and Atherosclerotic heart disease of lummi coronary artery without angina pectoris I25.10 [facility] [address] [id number] [address] [place] [id number] 14 Dec, 2017 Severe episode of recurrent major depressive disorder, without psychotic features F33.2 ; Alcohol use disorder, moderate, in sustained remission F10.21 and Cannabis use disorder, mild, abuse F12.10 [facility] [address] [facility] [id number] [address] [place] [id number] 12 Dec, 2017 Severe episode of recurrent major depressive disorder, without psychotic features F33.2 [place] [address] [facility] [id number] [address] [place] [address] Nov, [place] [address] [place] [place] [id number] [address] [place] [id number] 08 Nov, 2017 Atherosclerotic heart diseas e of lummi coronary artery without angina pectoris I25.10 ; Hypercholesterolemia with hypertriglyceridemia E78.2 ; Depression F32.9 and Cigarette nicotine dependence without complication F17.210 [place] [address] [facility] [id number] [address] [place] [address] Oct, [facility] [address] [id number] [address] [place] [address] Jul, [facility] [address] [id number] [address] [place] [address] Jun, [facility] [address] [id number] [address] [place] [address] Apr, Pain in thoracic spine M54.6 and Lumbago with sciatica, unspecified side M54.40 [facility] [address] [id number] [address] [place] [address] March, [place] [address] [facility] [id number] [address] [place] [address] March, Depression F32.9 [place] [address] [facility] [id number] [address] [place] [address] March, Anxiety F41.9 ; Depression F 32.9 ; Atherosclerotic heart disease of lummi coronary artery without angina pectoris I25.10 ; Hypercholesterolemia with hypertriglyceridemia E78.2 ; Right wrist tendonitis M77.8 and Environmental allergies Z91.09 [facility] [address] [id number] [place] [facility] [id number] Dec, [place] [address] [id number] [address] [place] [address] Nov, Iron deficiency anemia, unsp ecified iron deficiency anemia type D50.9 ; Anxiety F41.9 ; Dysthymia (or depressive neurosis) F34.1 and Hypercholesterolemia with hypertriglyceridemia E78.2 [place] [id number] [place] [address] Oct, [place] [address] [address] Oct, [address] [address] Oct, Dysthymia (or depressive sherice rosis) F34.1 ; Atherosclerotic heart disease of lummi coronary artery without angina pectoris I25.10 ; Coronary atherosclerosis due to lipid rich plaque I25.83 ; Hypercholesterolemia with hypertriglyceridemia E78.2 ; Iron deficiency anemia, unspecified iron deficiency anemia type D50.9 ; Hospital discharge follow-up Z09 ; History of PID Z87.42 ; Environmental allergies Z91.09 and Dysuria R30.0 [place] [address] [place] [place] [id number] [address] [place] [id number] Sep, [place] [address] [address] Sep, [place] [address] [place] [id number] [address] [place] [address] Aug, Dysthymia F34.1 and Anxiety F41.9 [place] [address] [place] [id number] [address] [place] [address] March, Coronary artery disease invo lving lummi coronary artery, angina presence unspecified, unspecified whether lummi or transplanted heart I25.10 ; Bipolar 1 disorder, depressed F31.9 ; Anxiety F41.9 and Dysthymia F34.1 [place] [address] [address] 04 Feb, 2016 Depression F32.9 and Stomach pain R10.9 [place] [address] [address] Jan, Hyperlipidemia 272.4 [place] [address] [address] 17 Dec, 2015 [place] [address] [address] 11 Dec, 2015 Major depressive disorder, r ecurrent episode, unspecified 296.30 ; Anxiety F41.9 ; Grief F43.20 and Dysthymia F34.1 [place] [address] [address] Dec, Anxiety F41.9 and Grief F43. 20 [place] [address] [address] Oct, Insomnia, unspecified G47.00 and Anxiety F41.9 [place] [address] [address] Oct, Dysthymia F34.1 ; Right shou lder pain M25.511 ; Sciatica, right M54.31 and Iron deficiency anemia, unspecified iron deficiency anemia type D50.9 [place] [address] [address] Sep, [place] [address] [address] Sep, Grief F43.20 [place] [address] [place] [id number] [address] [place] [address] Sep, [facility] [address] [address] Sep, [facility] [id number] [place] [address] Sep, Hyperlipidemia E78.5 ; CAD ( coronary artery disease) I25.10 and HTN (hypertension) I10 [facility] [address] [address] Aug, Allergic rhinitis, unspecifi ed allergic rhinitis type J30.9 [facility] [address] [address] Aug, Left-sided low back pain wit h right-sided sciatica M54.41 and Hyperlipidemia, unspecified hyperlipidemia E78.5 [facility] [address] [address] Aug, Neck pain M54.2 and Low back pain M54.5 [facility] [address] [address] Jun, [facility] [address] [address] Jun, [facility] [address] [address] Jun, CAD (coronary artery disease ) 414.00 ; Hyperlipidemia 272.4 and Anemia 285.9 [facility] [address] [address] Feb, [facility] [id number] [place] [address] Feb, [facility] [address] [id number] [address] [place] [address] Jan, [facility] [id number] [place] [address] Jan, [facility] [address] [id number] [address] [place] [address], [place] [address] Jan, [facility] [address] [id number] [address] [place] [address], [place] [address] Jan, [facility] [address] [id number] [address] [place] [address], [place] [address] Dec, 2014 [facility] [address] [id number] [address] [place] [address], [place] [address] Dec, 2014 [facility] [address] [id number] [address] [place] [address], [place] [address] Dec, 2014 [facility] [address] [id number] [address] [place] [address], [place] [address] Dec, 2014 [facility] [address] [id number] [address] [place] [address], [place] [address] Dec, 2014 [facility] [address] [id number] [address] [place] [address], [place] [address] Dec, 2014 [facility] [address] [id number] [address] [place] [address], [place] [address] Dec, 2014 [facility] [address] [id number] [address] [place] [address], [place] [address] Dec, [facility] [address] [id number] [address] [place] [address], [place] [address] Dec, 2014 [facility] [address] [id number] [address] [place] [address], [place] [address] Dec, 2014 [facility] [address] [id number] [address] [place] [address], [place] [address] Dec, 2014 [facility] [address] [id number] [address] [place] [address] Dec, 2014 [facility] [address] [id number] [address] [place] [address] Nov, [facility] [address] [id number] [address] [place] [address], [place] [address] Nov, [facility] [address] [id number] [address] [place] [address], [place] [address] Nov, [facility] [address] [id number] [address] [place] [address], [place] [address] Nov, [facility] [address] [id number] [address] [place] [address], [place] [address] Oct, [facility] [address] [id number] [address] [place] [address], [place] [address] Oct, [facility] [address] [id number] [address] [place] [address], [place] [address] Sep, [facility] [address] [id number] [address] [place] [address], [place] [address] Sep, [facility] [address] [id number] [address] [place] [address], [place] [address] Aug, [facility] [address] [id number] [address] [place] [address], [place] [address] Aug, [facility] [address] [id number] [address] [place] [address], [place] [address] 30 Jul, 2014 [facility] [address] [id number] [address] [place] [address], [place] [address] 30 Jul, 2014 [facility] [address] [id number] [address] [place] [address], [place] [address] 16 Jul, 2013 [facility] [address] [id number] [address] [place] [address], [place] [address] 16 Jul, 2014 [facility] [address] [id number] [address] [place] [address], [place] [address] 15 Jul, 2014 [facility] [address] [id number] [address] [place] [address], [place] [address] 12 Jul, 2014 [facility] [address] [id number] [address] [place] [address], [place] [address] Jul, [facility] [address] [id number] [facility] [place] [address] Jul, [facility] [address] [id number] [facility] [place] [address] Jul, [facility] [address] [id number] [facility] [place] [address] Jul, [facility] [address] [id number] [address] [place] [address], [place] [address] Jul, [facility] [address] [id number] [address] [place] [address], [place] [address] Jul, [facility] [address] [id number] [address] [place] [address], [place] [address] Jul, [facility] [address] [id number] [address] [place] [address], [place] [address] Jun, [facility] [address] [id number] [address] [place] [address], [place] [address] Jun, [facility] [address] [id number] [address] [place] [address], [place] [address] Jun, [facility] [address] [id number] [address] [place] [address], [place] [address] Jun, [facility] [address] [id number] [address] [place] [address], [place] [address] Jun, [facility] [address] [id number] [address] [place] [address], [place] [address] Jun, [facility] [address] [id number] [address] [place] [address], [place] [address] Jun, [facility] [address] [id number] [address] [place] [address], [place] [address] Jun, [facility] [address] [id number] [address] [place] [address], [place] [address] May, [facility] [address] [id number] [facility] [place] [address] May, [facility] [address] [id number] [facility] [place] [address] Apr, [facility] [address] [id number] [facility] [place] [address] Apr, [facility] [address] [id number] [address] [place] [address], [place] [address] Apr, [facility] [address] [id number] [facility] [place] [address] Apr, [facility] [address] [id number] [address] [place] [address], [place] [address] March, [facility] [address] [id number] [address] [place] [address], [place] [address] March, [facility] [address] [id number] [address] [place] [address], [place] [address] March, [facility] [address] [id number] [address] [place] [address], [place] [address] March, [facility] [address] [id number] [address] [place] [address], [place] [address] March, [facility] [address] [id number] [address] [place] [address], [place] [address] March, [facility] [address] [id number] [address] [place] [address], [place] [address] March, [facility] [address] [id number] [address] [place] [address], [place] [address] March, [facility] [address] [id number] [address] [place] [address], [place] [address] March, [facility] [address] [id number] [address] [place] [address], [place] [address] March, [facility] [address] [id number] [address] [place] [address], [place] [address] March, [facility] [address] [id number] [address] [place] [address], [place] [address] Nov, [facility] [address] [id number] [address] [place] [address], [place] [address] Nov, [facility] [address] [id number] [address] [place] [address], [place] [address] Nov, [facility] [address] [id number] [address] [place] [address], [place] [address] Oct, [facility] [address] [id number] [address] [place] [address], [place] [address] Oct, [facility] [address] [id number] [address] [place] [address], [place] [address] Aug, [facility] [address] [id number] [address] [place] [address], [place] [address] Aug, [facility] [address] [id number] [place] [id number] Jun, [facility] [place] [address] [id number] [place] [id number] Apr, [facility] [address] [id number] [address] [place] [address], [place] [address] Apr, [facility] [address] [id number] [address] [place] [address], [place] [address] Apr, [facility] [place] [address] [id number] [place] [id number] March, [facility] [place] [address] [id number] [place] [id number] Feb, [facility] [place] [address] [id number] [place] [id number] Jan, [facility] [address] [id number] [address] [place] [address], [place] [address] Jan, [facility] [address] [id number] [address] [place] [address], [place] [address] Jan, [facility] [address] [id number] [address] [place] [address], [place] [address] Jan, [facility] [place] [address] [id number] [place] [id number] Dec, [facility] [place] [address] [id number] [place] [id number] Dec, [facility] [address] [id number] [address] [place] [address], [place] [address] Dec, [facility] [address] [id number] [address] [place] [address], [place] [address] Dec, [facility] [address] [id number] [address] [place] [address], [place] [address] Dec, [facility] [address] [facility] [id number] [address] [place] [address], [place] [address] Nov, [facility] [address] [id number] [address] [place] [address], [place] [address] Nov, [facility] [place] [address] [id number] [place] [id number] Nov, [facility] [address] [id number] [address] [place] [address], [place] [address] Nov, [facility] [place] [address] [id number] [place] [id number] Nov, [facility] [place] [address] [id number] [place] [id number] Nov, [facility] [place] [address] [id number] [place] [id number] Oct, [facility] [place] [address] [id number] [place] [id number] Oct, [facility] [address] [id number] [address] [place] [address], [place] [address] Oct, [facility] [address] [id number] [address] [place] [address], [place] [address] Oct, [facility] [address] [id number] [address] [place] [address] Oct, [facility] [address] [facility] [id number] [address] [place] [address] Sep, [facility] [address] [facility] [id number] [address] [place] [address] Sep, [facility] [place] [address] [id number] [place] [id number] Sep, [facility] [place] [address] [id number] [place] [id number] Sep, [facility] [place] [address] [id number] [place] [id number] Sep, [facility] [address] [facility] [id number] [address] [place] [address] Sep, [facility] [address] [facility] [id number] [address] [place] [address] Aug, [facility] [place] [address] [id number] [place] [id number] Aug, [facility] [address] [facility] [id number] [address] [place] [address] Aug, [facility] [place] [address] [id number] [place] [id number] Jul, [facility] [place] [address] [id number] [place] [id number] Jul, [facility] [place] [address] [id number] [place] [id number] Jun, [facility] [place] [address] [id number] [place] [id number] May, [facility] [place] [address] [id number] [place] [id number] Feb, [facility] [place] [address] [id number] [place] [id number] Feb, [facility] [place] [address] [id number] [place] [id number] Feb, [facility] [place] [address] [id number] [place] [id number] Dec, [facility] [address] [id number] [place] [id number] Dec, [facility] [address] [id number] [address] [place] [address] Oct, [facility] [address] [id number] [address] [place] [address] Sep, [facility] [address] [id number] [address] [place] [address] Sep, [facility] [address] [id number] [address] [place] [address] Sep, [facility] [address] [id number] [address] [place] [address] Sep, [facility] [address] [id number] [address] [place] [address] March, [facility] [address] [id number] [address] [place] [address] Sep, [facility] [address] [id number] [address] [place] [address] Jul, [facility] [address] [id number] [address] [place] [address] May, [facility] [address] [id number] [address] [place] [address] Jan, [facility] [address] [id number] [address] [place] [phone] Sep, [facility] [address] [id number] [address] [place] [phone] Aug, IMMUNIZATIONS No Known Immunizations SOCIAL HISTORY Never Assessed REASON FOR VISIT [facility] PLAN OF CARE VITAL SIGNS MEDICATIONS No [...] stents in heart Hospitalization History Pelvic Inflammatory Disease-[facility] 09/22 Hospitalization History 2 inpatient psychiatric treatments, suicide attempts
--- OUTSIDE RECORDS SUMMARY | 2020-05-31 11:47 | XMS REPORT ---
Author Author Jeane Camacho Doctor Organization [facility] Address Unknown Phone Unavailable Care Team Providers Care County Judge Name Role Phone Migration, Doctor Unavailable Unavailable PROBLEMS Type Condition ICD9-CM Code GDP97-MN Code Onset Dates Condition S tatus SNOMED Code Problem Depression F32.9 Active 30774739 Problem Anxiety F41.9 Active 65708229 Problem Environmental allergies Z91.09 Active 293797107 Problem Atherosclerotic 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 Active 232352139 Problem Lumbago with sciatica, unspecified side M54.40 Active 091920644 Problem Chronic pain syndrome G89.4 Active 689246610 Problem Hypercholesterolemia with hypertriglyceridemia E78 .2 Active 668320259 Problem Major depressive disorder, recurrent sev ere without psychotic features F33.2 Active 93548259 Problem Dysthymia (or depressive neurosis) F34.1 Active 13755525 Problem Cigarette nicotine dependence without complication F17.210 Active 58657037 Problem Alcohol use disorder, moderate, in sustained remission F10.21 Active 25992972 Problem Cannabis use disorder, mild, abuse F12.10 Active 79115823 Problem Elevated blood pressure I10 Active 40845448 ALLERGIES No Information ENCOUNTERS Encounter Location Date Diagnosis [facility] [address] [id number] [address] [place] [address] Dec, Major depressive disorder, r ecurrent severe without psychotic features F33.2 ; Chronic pain syndrome G89.4 and Encounter for immunization Z23 [facility] [address] [id number] [place] [id number] Aug, Elevated blood pressure I10 [facility] [address] [facility] [id number] [address] [place] [address] May, Hypercholesterolemia with hy pertriglyceridemia E78.2 and Atherosclerotic heart disease of [place] coronary artery without angina pectoris I25.10 [facility] [address] [facility] [id number] [address] [place] [address] March, Lumbago with sciatica, unspe cified side M54.40 ; Environmental allergies Z91.09 ; Hypercholesterolemia with hypertriglyceridemia E78.2 and Atherosclerotic heart disease of [place] coronary artery without angina pectoris I25.10 [facility] [address] [id number] [address] [place] [id number] 14 Dec, 2017 Severe episode of recurrent major depressive disorder, without psychotic features F33.2 ; Alcohol use disorder, moderate, in sustained remission F10.21 and Cannabis use disorder, mild, abuse F12.10 [facility] [address] [facility] [id number] [address] [place] [id number] 12 Dec, 2017 Severe episode of recurrent major depressive disorder, without psychotic features F33.2 [place] [address] [facility] [id number] [address] [place] [address] Nov, [place] [address] [id number] [address] [place] [id number] 08 Nov, 2017 Atherosclerotic 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 ; Hypercholesterolemia with hypertriglyceridemia E78.2 ; Depression F32.9 and Cigarette nicotine dependence without complication F17.210 [place] [address] [facility] [id number] [address] [place] [address] Oct, [facility] [address] [id number] [address] [place] [address] Jul, [facility] [address] [id number] [address] [place] [id number] Jun, [facility] [address] [id number] [address] [place] [address] Apr, Pain in thoracic spine M54.6 and Lumbago with sciatica, unspecified side M54.40 [facility] [address] [id number] [address] [place] [address] March, [place] [address] [facility] [id number] [address] [place] [address] March, Depression F32.9 [place] [address] [facility] [id number] [address] [place] [address] March, Anxiety F41.9 ; Depression F 32.9 ; Atherosclerotic heart disease of [place] coronary artery without angina pectoris I25.10 ; Hypercholesterolemia with hypertriglyceridemia E78.2 ; Right wrist tendonitis M77.8 and Environmental allergies Z91.09 [facility] [address] [id number] [place] [facility] [id number] Dec, [place] [id number] [address] [place] [address] Nov, Iron deficiency anemia, unsp ecified iron deficiency anemia type D50.9 ; Anxiety F41.9 ; Dysthymia (or depressive neurosis) F34.1 and Hypercholesterolemia with hypertriglyceridemia E78.2 [place] [id number] [place] [address] Oct, [place] [address] [address] Oct, [address] [address] Oct, Dysthymia (or depressive sherice rosis) F34.1 ; Atherosclerotic heart disease of [place] coronary artery without angina pectoris I25.10 ; Coronary atherosclerosis due to lipid rich plaque I25.83 ; Hypercholesterolemia with hypertriglyceridemia E78.2 ; Iron deficiency anemia, unspecified iron deficiency anemia type D50.9 ; Hospital discharge follow-up Z09 ; History of PID Z87.42 ; Environmental allergies Z91.09 and Dysuria R30.0 [place] [id number] [address] [place] [address] Sep, [place] [address] [address] Sep, [place] [address] [id number] [address] [place] [address] Aug, Dysthymia F34.1 and Anxiety F41.9 [place] [address] [address] [id number] [address] [place] [address] March, Coronary artery disease invo lving [place] coronary artery, angina presence unspecified, unspecified whether [place] or transplanted heart I25.10 ; Bipolar 1 disorder, depressed F31.9 ; Anxiety F41.9 and Dysthymia F34.1 [place] [address] [address] 04 Feb, 2016 Depression F32.9 and Stomach pain R10.9 [place] [address] [address] Jan, Hyperlipidemia 272.4 [place] [address] [address] 17 Dec, 2015 [place] [address] [address] 11 Dec, 2015 Major depressive disorder, r ecurrent episode, unspecified 296.30 ; Anxiety F41.9 ; Grief F43.20 and Dysthymia F34.1 [place] [address] [address] Dec, Anxiety F41.9 and Grief F43. 20 [place] [address] [address] Oct, Insomnia, unspecified G47.00 and Anxiety F41.9 [place] [address] [address] Oct, Dysthymia F34.1 ; Right shou lder pain M25.511 ; Sciatica, right M54.31 and Iron deficiency anemia, unspecified iron deficiency anemia type D50.9 [place] [address] [address] Sep, [place] [address] [address] Sep, Grief F43.20 [place] [id number] [place] [address] Sep, [facility] [address] [address] Sep, [facility] [id number] [place] [address] Sep, Hyperlipidemia E78.5 ; CAD ( coronary artery disease) I25.10 and HTN (hypertension) I10 [facility] [address] [address] Aug, Allergic rhinitis, unspecifi ed allergic rhinitis type J30.9 [facility] [address] [address] Aug, Left-sided low back pain wit h right-sided sciatica M54.41 and Hyperlipidemia, unspecified hyperlipidemia E78.5 [facility] [address] [address] Aug, Neck pain M54.2 and Low back pain M54.5 [facility] [address] [address] Jun, [facility] [address] [address] Jun, [facility] [address] [address] Jun, CAD (coronary artery disease ) 414.00 ; Hyperlipidemia 272.4 and Anemia 285.9 [facility] [address] [address] Feb, [facility] [id number] [place] [address] Feb, [facility] [id number] [address] [place] [address] Jan, [facility] [id number] [place] [address] Jan, [facility] [address] [id number] [address] [place] [address], [place] [address] Jan, [facility] [address] [id number] [address] [place] [address], [place] [address] Jan, [facility] [address] [id number] [address] [place] [address], [place] [address] Dec, 2014 [facility] [address] [id number] [address] [place] [address], [place] [address] Dec, 2014 [facility] [address] [id number] [address] [place] [address], [place] [address] Dec, 2014 [facility] [address] [id number] [address] [place] [address], [place] [address] Dec, 2014 [facility] [address] [id number] [address] [place] [address], [place] [address] Dec, 2014 [facility] [address] [id number] [address] [place] [address], [place] [address] Dec, 2014 [facility] [address] [id number] [address] [place] [address], [place] [address] Dec, 2014 [facility] [address] [id number] [address] [place] [address], [place] [address] Dec, [facility] [address] [id number] [address] [place] [address], [place] [address] Dec, 2014 [facility] [address] [id number] [address] [place] [address], [place] [address] Dec, 2014 [facility] [address] [id number] [address] [place] [address], [place] [address] Dec, 2014 [facility] [address] [id number] [address] [place] [address] Dec, 2014 [facility] [address] [id number] [address] [place] [address] Nov, [facility] [address] [id number] [address] [place] [address], [place] [address] Nov, [facility] [address] [id number] [address] [place] [address], [place] [address] Nov, [facility] [address] [id number] [address] [place] [address], [place] [address] Nov, [facility] [address] [id number] [address] [place] [address], [place] [address] Oct, [facility] [address] [id number] [address] [place] [address], [place] [address] Oct, [facility] [address] [id number] [address] [place] [address], [place] [address] Sep, [facility] [address] [id number] [address] [place] [address], [place] [address] Sep, [facility] [address] [id number] [address] [place] [address], [place] [address] Aug, [facility] [address] [id number] [address] [place] [address], [place] [address] Aug, [facility] [address] [id number] [address] [place] [address], [place] [address] 30 Jul, 2014 [facility] [address] [id number] [address] [place] [address], [place] [address] 30 Jul, 2014 [facility] [address] [id number] [address] [place] [address], [place] [address] 16 Jul, 2013 [facility] [address] [id number] [address] [place] [address], [place] [address] 16 Jul, 2014 [facility] [address] [id number] [address] [place] [address], [place] [address] 15 Jul, 2014 [facility] [address] [id number] [address] [place] [address], [place] [address] 12 Jul, 2014 [facility] [address] [id number] [address] [place] [address], [place] [address] Jul, [facility] [address] [id number] [facility] [place] [address] Jul, [facility] [address] [id number] [facility] [place] [address] Jul, [facility] [address] [id number] [facility] [place] [address] Jul, [facility] [address] [id number] [address] [place] [address], [place] [address] Jul, [facility] [address] [id number] [address] [place] [address], [place] [address] Jul, [facility] [address] [id number] [address] [place] [address], [place] [address] Jul, [facility] [address] [id number] [address] [place] [address], [place] [address] Jun, [facility] [address] [id number] [address] [place] [address], [place] [address] Jun, [facility] [address] [id number] [address] [place] [address], [place] [address] Jun, [facility] [address] [id number] [address] [place] [address], [place] [address] Jun, [facility] [address] [id number] [address] [place] [address], [place] [address] Jun, [facility] [address] [id number] [address] [place] [address], [place] [address] Jun, [facility] [address] [id number] [address] [place] [address], [place] [address] Jun, [facility] [address] [id number] [address] [place] [address], [place] [address] Jun, [facility] [address] [id number] [address] [place] [address], [place] [address] May, [facility] [address] [id number] [facility] [place] [address] May, [facility] [address] [id number] [facility] [place] [address] Apr, [facility] [address] [id number] [facility] [place] [address] Apr, [facility] [address] [id number] [address] [place] [address], [place] [address] Apr, [facility] [address] [id number] [facility] [place] [address] Apr, [facility] [address] [id number] [address] [place] [address], [place] [address] March, [facility] [address] [id number] [address] [place] [address], [place] [address] March, [facility] [address] [id number] [address] [place] [address], [place] [address] March, [facility] [address] [id number] [address] [place] [address], [place] [address] March, [facility] [address] [id number] [address] [place] [address], [place] [address] March, [facility] [address] [id number] [address] [place] [address], [place] [address] March, [facility] [address] [id number] [address] [place] [address], [place] [address] March, [facility] [address] [id number] [address] [place] [address], [place] [address] March, [facility] [address] [id number] [address] [place] [address], [place] [address] March, [facility] [address] [id number] [address] [place] [address], [place] [address] March, [facility] [address] [id number] [address] [place] [address], [place] [address] March, [facility] [address] [id number] [address] [place] [address], [place] [address] Nov, [facility] [address] [id number] [address] [place] [address], [place] [address] Nov, [facility] [address] [id number] [address] [place] [address], [place] [address] Nov, [facility] [address] [id number] [address] [place] [address], [place] [address] Oct, [facility] [address] [id number] [address] [place] [address], [place] [address] Oct, [facility] [address] [id number] [address] [place] [address], [place] [address] Aug, [facility] [address] [id number] [address] [place] [address], [place] [address] Aug, [facility] [address] [id number] [place] [id number] Jun, [facility] [place] [address] [id number] [place] [id number] Apr, [facility] [address] [id number] [address] [place] [address], [place] [address] Apr, [facility] [address] [id number] [address] [place] [address], [place] [address] Apr, [facility] [place] [address] [id number] [place] [id number] March, [facility] [address] [id number] [place] [id number] Feb, [facility] [place] [address] [id number] [place] [id number] Jan, [facility] [address] [id number] [address] [place] [address], [place] [address] Jan, [facility] [address] [id number] [address] [place] [address], [place] [address] Jan, [facility] [address] [id number] [address] [place] [address], [place] [address] Jan, [facility] [place] [address] [id number] [place] [id number] Dec, [facility] [place] [address] [id number] [place] [id number] Dec, [facility] [address] [id number] [address] [place] [address], [place] [address] Dec, [facility] [address] [id number] [address] [place] [address], [place] [address] Dec, [facility] [address] [id number] [address] [place] [address], [place] [address] Dec, [facility] [address] [facility] [id number] [address] [place] [address], [place] [address] Nov, [facility] [address] [id number] [address] [place] [address], [place] [address] Nov, [facility] [place] [address] [id number] [place] [id number] Nov, [facility] [address] [id number] [address] [place] [address], [place] [address] Nov, [facility] [place] [address] [id number] [place] [id number] Nov, [facility] [place] [address] [id number] [place] [id number] Nov, [facility] [place] [address] [id number] [place] [id number] Oct, [facility] [place] [address] [id number] [place] [id number] Oct, [facility] [address] [id number] [address] [place] [address], [place] [address] Oct, [facility] [address] [id number] [address] [place] [address], [place] [address] Oct, [facility] [address] [id number] [address] [place] [address] Oct, [facility] [address] [facility] [id number] [address] [place] [address] Sep, [facility] [address] [facility] [id number] [address] [place] [address] Sep, [facility] [place] [address] [id number] [place] [id number] Sep, [facility] [place] [address] [id number] [place] [id number] Sep, [facility] [place] [address] [id number] [place] [id number] Sep, [facility] [address] [facility] [id number] [address] [place] [address] Sep, [facility] [address] [facility] [id number] [address] [place] [address] Aug, [facility] [place] [address] [id number] [place] [id number] Aug, [facility] [address] [facility] [id number] [address] [place] [address] Aug, [facility] [place] [address] [id number] [place] [id number] Jul, [facility] [place] [address] [id number] [place] [id number] Jul, [facility] [place] [address] [id number] [place] [id number] Jun, [facility] [place] [address] [id number] [place] [id number] May, [facility] [place] [address] [id number] [place] [id number] Feb, [facility] [place] [address] [id number] [place] [id number] Feb, [facility] [place] [address] [id number] [place] [id number] Feb, [facility] [place] [address] [id number] [place] [id number] Dec, [facility] [address] [id number] [place] [id number] Dec, [facility] [address] [id number] [address] [place] [address] Oct, [facility] [address] [id number] [address] [place] [address] Sep, [facility] [address] [id number] [address] [place] [address] Sep, [facility] [address] [id number] [address] [place] [phone] Sep, [facility] [address] [id number] [address] [place] [id number] Sep, [facility] [address] [id number] [address] [place] [phone] March, [facility] [address] [id number] [address] [place] [phone] Sep, [facility] [address] [id number] [address] [place] [id number] Jul, [facility] [address] [id number] [address] [place] [id number] May, [facility] [address] [id number] [address] [place] [phone] Jan, [facility] [address] [id number] [address] [place] [phone] Sep, [facility] [address] [id number] [address] [place] [id number] Aug, IMMUNIZATIONS No Known Immunizations SOCIAL HISTORY Never Assessed REASON FOR VISIT [facility] PLAN OF CARE VITAL SIGNS MEDICATIONS No [...] stents in heart Hospitalization History Pelvic Inflammatory Disease-[facility] 09/22 Hospitalization History 2 inpatient psychiatric treatments, suicide attempts
--- OUTSIDE RECORDS SUMMARY | 2020-05-31 11:47 | XMS REPORT ---
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 Active 106994736 Problem Lumbago with sciatica, unspecified side M54.40 Active 311206970 Problem Chronic pain syndrome G89.4 Active 663785129 Problem Hypercholesterolemia with hypertriglyceridemia E78 .2 Active 330616700 Problem Major depressive disorder, recurrent sev ere without psychotic features F33.2 Active 05166918 Problem Dysthymia (or depressive neurosis) F34.1 Active 35595435 Problem Cigarette nicotine dependence without complication F17.210 Active 86668788 Problem Alcohol use disorder, moderate, in sustained remission F10.21 Active 14733417 Problem Cannabis use disorder, mild, abuse F12.10 Active 51067787 Problem Elevated blood pressure I10 Active 62700537 ALLERGIES No Information ENCOUNTERS Encounter Location Date Diagnosis [facility] [address] [id number] [address] [place] [address] Dec, Major depressive disorder, r ecurrent severe without psychotic features F33.2 ; Chronic pain syndrome G89.4 and Encounter for immunization Z23 [facility] [address] [id number] [place] [id number] Aug, Elevated blood pressure I10 [facility] [address] [facility] [id number] [address] [place] [address] May, Hypercholesterolemia with hy pertriglyceridemia E78.2 and Atherosclerotic heart disease of ho-chunk coronary artery without angina pectoris I25.10 [facility] [address] [facility] [id number] [address] [place] [address] March, Lumbago with sciatica, unspe cified side M54.40 ; Environmental allergies Z91.09 ; Hypercholesterolemia with hypertriglyceridemia E78.2 and Atherosclerotic heart disease of ho-chunk coronary artery without angina pectoris I25.10 [facility] [address] [id number] [address] [place] [address] 14 Dec, 2017 Severe episode of recurrent major depressive disorder, without psychotic features F33.2 ; Alcohol use disorder, moderate, in sustained remission F10.21 and Cannabis use disorder, mild, abuse F12.10 [facility] [address] [facility] [id number] [address] [place] [id number] 12 Dec, 2017 Severe episode of recurrent major depressive disorder, without psychotic features F33.2 [place] [address] [facility] [id number] [address] [place] [address] Nov, [place] [address] [id number] [address] [place] [address] 08 Nov, 2017 Atherosclerotic heart diseas e of ho-chunk coronary artery without angina pectoris I25.10 ; Hypercholesterolemia with hypertriglyceridemia E78.2 ; Depression F32.9 and Cigarette nicotine dependence without complication F17.210 [place] [address] [facility] [id number] [address] [place] [address] Oct, [facility] [address] [id number] [address] [place] [address] Jul, [facility] [address] [id number] [address] [place] [address] Jun, [facility] [address] [id number] [address] [place] [address] Apr, Pain in thoracic spine M54.6 and Lumbago with sciatica, unspecified side M54.40 [facility] [address] [id number] [address] [place] [address] March, [place] [address] [facility] [id number] [address] [place] [address] March, Depression F32.9 [place] [address] [facility] [id number] [address] [place] [address] March, Anxiety F41.9 ; Depression F 32.9 ; Atherosclerotic heart disease of ho-chunk coronary artery without angina pectoris I25.10 ; Hypercholesterolemia with hypertriglyceridemia E78.2 ; Right wrist tendonitis M77.8 and Environmental allergies Z91.09 [facility] [address] [id number] [place] [facility] [id number] Dec, [place] [address] [id number] [address] [place] [address] Nov, Iron deficiency anemia, unsp ecified iron deficiency anemia type D50.9 ; Anxiety F41.9 ; Dysthymia (or depressive neurosis) F34.1 and Hypercholesterolemia with hypertriglyceridemia E78.2 [place] [id number] [place] [address] Oct, [place] [address] [address] Oct, [address] [address] Oct, Dysthymia (or depressive sherice rosis) F34.1 ; Atherosclerotic heart disease of ho-chunk coronary artery without angina pectoris I25.10 ; Coronary atherosclerosis due to lipid rich plaque I25.83 ; Hypercholesterolemia with hypertriglyceridemia E78.2 ; Iron deficiency anemia, unspecified iron deficiency anemia type D50.9 ; Hospital discharge follow-up Z09 ; History of PID Z87.42 ; Environmental allergies Z91.09 and Dysuria R30.0 [place] [address] [id number] [address] [place] [address] Sep, [place] [address] [address] Sep, [place] [address] [id number] [address] [place] [address] Aug, Dysthymia F34.1 and Anxiety F41.9 [place] [address] [place] [address] [id number] [address] [place] [address] March, Coronary artery disease invo lving ho-chunk coronary artery, angina presence unspecified, unspecified whether ho-chunk or transplanted heart I25.10 ; Bipolar 1 disorder, depressed F31.9 ; Anxiety F41.9 and Dysthymia F34.1 [place] [address] [address] 04 Feb, 2016 Depression F32.9 and Stomach pain R10.9 [place] [address] [address] Jan, Hyperlipidemia 272.4 [place] [address] [address] 17 Dec, 2015 [place] [address] [address] 11 Dec, 2015 Major depressive disorder, r ecurrent episode, unspecified 296.30 ; Anxiety F41.9 ; Grief F43.20 and Dysthymia F34.1 [place] [address] [address] Dec, Anxiety F41.9 and Grief F43. 20 [place] [address] [address] Oct, Insomnia, unspecified G47.00 and Anxiety F41.9 [place] [address] [address] Oct, Dysthymia F34.1 ; Right shou lder pain M25.511 ; Sciatica, right M54.31 and Iron deficiency anemia, unspecified iron deficiency anemia type D50.9 [place] [address] [address] Sep, [place] [address] [address] Sep, Grief F43.20 [place] [address] [id number] [address] [place] [address] Sep, [facility] [address] [address] Sep, [facility] [id number] [place] [address] Sep, Hyperlipidemia E78.5 ; CAD ( coronary artery disease) I25.10 and HTN (hypertension) I10 [facility] [address] [address] Aug, Allergic rhinitis, unspecifi ed allergic rhinitis type J30.9 [facility] [address] [address] Aug, Left-sided low back pain wit h right-sided sciatica M54.41 and Hyperlipidemia, unspecified hyperlipidemia E78.5 [facility] [address] [address] Aug, Neck pain M54.2 and Low back pain M54.5 [facility] [address] [address] Jun, [facility] [address] [address] Jun, [facility] [address] [address] Jun, CAD (coronary artery disease ) 414.00 ; Hyperlipidemia 272.4 and Anemia 285.9 [facility] [address] [address] Feb, [facility] [id number] [place] [address] Feb, [facility] [id number] [address] [place] [address] Jan, [facility] [id number] [place] [address] Jan, [facility] [address] [id number] [address] [place] [address], [place] [address] Jan, [facility] [address] [id number] [address] [place] [address], [place] [address] Jan, [facility] [address] [id number] [address] [place] [address], [place] [address] Dec, 2014 [facility] [address] [id number] [address] [place] [address], [place] [address] Dec, 2014 [facility] [address] [id number] [address] [place] [address], [place] [address] Dec, 2014 [facility] [address] [id number] [address] [place] [address], [place] [address] Dec, 2014 [facility] [address] [id number] [address] [place] [address], [place] [address] Dec, 2014 [facility] [address] [id number] [address] [place] [address], [place] [address] Dec, 2014 [facility] [address] [id number] [address] [place] [address], [place] [address] Dec, 2014 [facility] [address] [id number] [address] [place] [address], [place] [address] Dec, [facility] [address] [id number] [address] [place] [address], [place] [address] Dec, 2014 [facility] [address] [id number] [address] [place] [address], [place] [address] Dec, 2014 [facility] [address] [id number] [address] [place] [address], [place] [address] Dec, 2014 [facility] [address] [id number] [address] [place] [address] Dec, 2014 [facility] [address] [id number] [address] [place] [address] Nov, [facility] [address] [id number] [address] [place] [address], [place] [address] Nov, [facility] [address] [id number] [address] [place] [address], [place] [address] Nov, [facility] [address] [id number] [address] [place] [address], [place] [address] Nov, [facility] [address] [id number] [address] [place] [address], [place] [address] Oct, [facility] [address] [id number] [address] [place] [address], [place] [address] Oct, [facility] [address] [id number] [address] [place] [address], [place] [address] Sep, [facility] [address] [id number] [address] [place] [address], [place] [address] Sep, [facility] [address] [id number] [address] [place] [address], [place] [address] Aug, [facility] [address] [id number] [address] [place] [address], [place] [address] Aug, [facility] [address] [id number] [address] [place] [address], [place] [address] 30 Jul, 2014 [facility] [address] [id number] [address] [place] [address], [place] [address] 30 Jul, 2014 [facility] [address] [id number] [address] [place] [address], [place] [address] 16 Jul, 2013 [facility] [address] [id number] [address] [place] [address], [place] [address] 16 Jul, 2014 [facility] [address] [id number] [address] [place] [address], [place] [address] 15 Jul, 2014 [facility] [address] [id number] [address] [place] [address], [place] [address] 12 Jul, 2014 [facility] [address] [id number] [address] [place] [address], [place] [address] Jul, [facility] [address] [id number] [facility] [place] [address] Jul, [facility] [address] [id number] [facility] [place] [address] Jul, [facility] [address] [id number] [facility] [place] [address] Jul, [facility] [address] [id number] [address] [place] [address], [place] [address] Jul, [facility] [address] [id number] [address] [place] [address], [place] [address] Jul, [facility] [address] [id number] [address] [place] [address], [place] [address] Jul, [facility] [address] [id number] [address] [place] [address], [place] [address] Jun, [facility] [address] [id number] [address] [place] [address], [place] [address] Jun, [facility] [address] [id number] [address] [place] [address], [place] [address] Jun, [facility] [address] [id number] [address] [place] [address], [place] [address] Jun, [facility] [address] [id number] [address] [place] [address], [place] [address] Jun, [facility] [address] [id number] [address] [place] [address], [place] [address] Jun, [facility] [address] [id number] [address] [place] [address], [place] [address] Jun, [facility] [address] [id number] [address] [place] [address], [place] [address] Jun, [facility] [address] [id number] [address] [place] [address], [place] [address] May, [facility] [address] [id number] [facility] [place] [address] May, [facility] [address] [id number] [facility] [place] [address] Apr, [facility] [address] [id number] [facility] [place] [address] Apr, [facility] [address] [id number] [address] [place] [address], [place] [address] Apr, [facility] [address] [id number] [facility] [place] [address] Apr, [facility] [address] [id number] [address] [place] [address], [place] [address] March, [facility] [address] [id number] [address] [place] [address], [place] [address] March, [facility] [address] [id number] [address] [place] [address], [place] [address] March, [facility] [address] [id number] [address] [place] [address], [place] [address] March, [facility] [address] [id number] [address] [place] [address], [place] [address] March, [facility] [address] [id number] [address] [place] [address], [place] [address] March, [facility] [address] [id number] [address] [place] [address], [place] [address] March, [facility] [address] [id number] [address] [place] [address], [place] [address] March, [facility] [address] [id number] [address] [place] [address], [place] [address] March, [facility] [address] [id number] [address] [place] [address], [place] [address] March, [facility] [address] [id number] [address] [place] [address], [place] [address] March, [facility] [address] [id number] [address] [place] [address], [place] [address] Nov, [facility] [address] [id number] [address] [place] [address], [place] [address] Nov, [facility] [address] [id number] [address] [place] [address], [place] [address] Nov, [facility] [address] [id number] [address] [place] [address], [place] [address] Oct, [facility] [address] [id number] [address] [place] [address], [place] [address] Oct, [facility] [address] [id number] [address] [place] [address], [place] [address] Aug, [facility] [address] [id number] [address] [place] [address], [place] [address] Aug, [facility] [address] [id number] [place] [id number] Jun, [facility] [place] [address] [id number] [place] [id number] Apr, [facility] [address] [id number] [address] [place] [address], [place] [address] Apr, [facility] [address] [id number] [address] [place] [address], [place] [address] Apr, [facility] [place] [address] [id number] [place] [id number] March, [facility] [place] [address] [id number] [place] [id number] Feb, [facility] [place] [address] [id number] [place] [id number] Jan, [facility] [address] [id number] [address] [place] [address], [place] [address] Jan, [facility] [address] [id number] [address] [place] [address], [place] [address] Jan, [facility] [address] [id number] [address] [place] [address], [place] [address] Jan, [facility] [place] [address] [id number] [place] [id number] Dec, [facility] [place] [address] [id number] [place] [id number] Dec, [facility] [address] [id number] [address] [place] [address], [place] [address] Dec, [facility] [address] [id number] [address] [place] [address], [place] [address] Dec, [facility] [address] [id number] [address] [place] [address], [place] [address] Dec, [facility] [address] [facility] [id number] [address] [place] [address], [place] [address] Nov, [facility] [address] [id number] [address] [place] [address], [place] [address] Nov, [facility] [place] [address] [id number] [place] [id number] Nov, [facility] [address] [id number] [address] [place] [address], [place] [address] Nov, [facility] [place] [address] [id number] [place] [id number] Nov, [facility] [place] [address] [id number] [place] [id number] Nov, [facility] [place] [address] [id number] [place] [id number] Oct, [facility] [place] [address] [id number] [place] [id number] Oct, [facility] [address] [id number] [address] [place] [address], [place] [address] Oct, [facility] [address] [id number] [address] [place] [address], [place] [address] Oct, [facility] [address] [id number] [address] [place] [address] Oct, [facility] [address] [facility] [id number] [address] [place] [address] Sep, [facility] [address] [facility] [id number] [address] [place] [address] Sep, [facility] [place] [address] [id number] [place] [id number] Sep, [facility] [place] [address] [id number] [place] [id number] Sep, [facility] [place] [address] [id number] [place] [id number] Sep, [facility] [address] [facility] [id number] [address] [place] [address] Sep, [facility] [address] [facility] [id number] [address] [place] [address] Aug, [facility] [place] [address] [id number] [place] [id number] Aug, [facility] [address] [facility] [id number] [address] [place] [address] Aug, [facility] [place] [address] [id number] [place] [id number] Jul, [facility] [place] [address] [id number] [place] [id number] Jul, [facility] [place] [address] [id number] [place] [id number] Jun, [facility] [place] [address] [id number] [place] [id number] May, [facility] [place] [address] [id number] [place] [id number] Feb, [facility] [place] [address] [id number] [place] [id number] Feb, [facility] [place] [address] [id number] [place] [id number] Feb, [facility] [place] [address] [id number] [place] [id number] Dec, [facility] [address] [id number] [place] [id number] Dec, [facility] [address] [id number] [address] [place] [id number] Oct, [facility] [address] [id number] [address] [place] [id number] Sep, [facility] [address] [id number] [address] [place] [id number] Sep, [facility] [address] [id number] [address] [place] [phone] Sep, [facility] [address] [id number] [address] [place] [id number] Sep, [facility] [address] [id number] [address] [place] [id number] March, [facility] [address] [id number] [address] [place] [id number] Sep, [facility] [address] [id number] [address] [place] [id number] Jul, [facility] [address] [id number] [address] [place] [id number] May, [facility] [address] [id number] [address] [place] [phone] Jan, [facility] [address] [id number] [address] [place] [phone] Sep, [facility] [address] [id number] [address] [place] [id number] Aug, IMMUNIZATIONS No Known Immunizations SOCIAL HISTORY Never Assessed REASON FOR VISIT [facility] [place] PLAN OF CARE VITAL SIGNS MEDICATIONS No [...] stents in heart Hospitalization History Pelvic Inflammatory Disease-[facility] 09/22 Hospitalization History 2 inpatient psychiatric treatments, suicide attempts
--- OUTSIDE RECORDS SUMMARY | 2020-05-31 11:48 | XMS REPORT ---
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 Active 345731208 Problem Lumbago with sciatica, unspecified side M54.40 Active 996306425 Problem Chronic pain syndrome G89.4 Active 274261760 Problem Hypercholesterolemia with hypertriglyceridemia E78 .2 Active 482468836 Problem Major depressive disorder, recurrent sev ere without psychotic features F33.2 Active 65355853 Problem Dysthymia (or depressive neurosis) F34.1 Active 44842959 Problem Cigarette nicotine dependence without complication F17.210 Active 43653881 Problem Alcohol use disorder, moderate, in sustained remission F10.21 Active 30762626 Problem Cannabis use disorder, mild, abuse F12.10 Active 00974835 Problem Elevated blood pressure I10 Active 11376410 ALLERGIES No Information ENCOUNTERS Encounter Location Date Diagnosis [facility] [place] [address] [id number] [address] [place] [address] Dec, Major depressive disorder, r ecurrent severe without psychotic features F33.2 ; Chronic pain syndrome G89.4 and Encounter for immunization Z23 [facility] [address] [id number] [place] [id number] Aug, Elevated blood pressure I10 [facility] [place] [address] [facility] [id number] [address] [place] [address] May, Hypercholesterolemia with hy pertriglyceridemia E78.2 and Atherosclerotic heart disease of redding coronary artery without angina pectoris I25.10 [facility] [place] [address] [facility] [id number] [address] [place] [address] March, Lumbago with sciatica, unspe cified side M54.40 ; Environmental allergies Z91.09 ; Hypercholesterolemia with hypertriglyceridemia E78.2 and Atherosclerotic heart disease of redding coronary artery without angina pectoris I25.10 [facility] [place] [address] [id number] [address] [place] [address] 14 Dec, 2017 Severe episode of recurrent major depressive disorder, without psychotic features F33.2 ; Alcohol use disorder, moderate, in sustained remission F10.21 and Cannabis use disorder, mild, abuse F12.10 [facility] [place] [address] [facility] [id number] [address] [place] [address] 12 Dec, 2017 Severe episode of recurrent major depressive disorder, without psychotic features F33.2 [place] [address] [facility] [id number] [address] [place] [address] Nov, [place] [address] [id number] [address] [place] [address] 08 Nov, 2017 Atherosclerotic heart diseas e of redding coronary artery without angina pectoris I25.10 ; Hypercholesterolemia with hypertriglyceridemia E78.2 ; Depression F32.9 and Cigarette nicotine dependence without complication F17.210 [place] [address] [facility] [id number] [address] [place] [address] Oct, [facility] [place] [address] [id number] [address] [place] [address] Jul, [facility] [place] [address] [id number] [address] [place] [address] Jun, [facility] [place] [address] [id number] [address] [place] [address] Apr, Pain in thoracic spine M54.6 and Lumbago with sciatica, unspecified side M54.40 [facility] [place] [address] [id number] [address] [place] [address] March, [place] [address] [facility] [id number] [address] [place] [address] March, Depression F32.9 [place] [address] [facility] [id number] [address] [place] [address] March, Anxiety F41.9 ; Depression F 32.9 ; Atherosclerotic heart disease of redding coronary artery without angina pectoris I25.10 ; Hypercholesterolemia with hypertriglyceridemia E78.2 ; Right wrist tendonitis M77.8 and Environmental allergies Z91.09 [facility] [address] [id number] [place] [facility] [id number] Dec, [place] [address] [id number] [address] [place] [address] Nov, Iron deficiency anemia, unsp ecified iron deficiency anemia type D50.9 ; Anxiety F41.9 ; Dysthymia (or depressive neurosis) F34.1 and Hypercholesterolemia with hypertriglyceridemia E78.2 [place] [id number] [place] [address] Oct, [place] [address] [address] Oct, [address] [address] Oct, Dysthymia (or depressive sherice rosis) F34.1 ; Atherosclerotic heart disease of redding coronary artery without angina pectoris I25.10 ; Coronary atherosclerosis due to lipid rich plaque I25.83 ; Hypercholesterolemia with hypertriglyceridemia E78.2 ; Iron deficiency anemia, unspecified iron deficiency anemia type D50.9 ; Hospital discharge follow-up Z09 ; History of PID Z87.42 ; Environmental allergies Z91.09 and Dysuria R30.0 [place] [address] [id number] [address] [place] [address] Sep, [place] [address] [address] Sep, [place] [address] [id number] [address] [place] [address] Aug, Dysthymia F34.1 and Anxiety F41.9 [place] [address] [address] [id number] [address] [place] [address] March, Coronary artery disease invo lving redding coronary artery, angina presence unspecified, unspecified whether redding or transplanted heart I25.10 ; Bipolar 1 disorder, depressed F31.9 ; Anxiety F41.9 and Dysthymia F34.1 [address] [address] [address] 04 Feb, 2016 Depression F32.9 and Stomach pain R10.9 [place] [address] [address] Jan, Hyperlipidemia 272.4 [place] [address] [address] 17 Dec, 2015 [place] [address] [address] 11 Dec, 2015 Major depressive disorder, r ecurrent episode, unspecified 296.30 ; Anxiety F41.9 ; Grief F43.20 and Dysthymia F34.1 [place] [address] [address] Dec, Anxiety F41.9 and Grief F43. 20 [address] [address] [address] Oct, Insomnia, unspecified G47.00 and Anxiety F41.9 [place] [address] [address] Oct, Dysthymia F34.1 ; Right shou lder pain M25.511 ; Sciatica, right M54.31 and Iron deficiency anemia, unspecified iron deficiency anemia type D50.9 [place] [address] [address] Sep, [place] [address] [address] Sep, Grief F43.20 [place] [address] [id number] [address] [place] [address] Sep, [facility] [place] [address] [address] Sep, [facility] [place] [id number] [place] [address] Sep, Hyperlipidemia E78.5 ; CAD ( coronary artery disease) I25.10 and HTN (hypertension) I10 [facility] [place] [address] [address] Aug, Allergic rhinitis, unspecifi ed allergic rhinitis type J30.9 [facility] [place] [address] [address] Aug, Left-sided low back pain wit h right-sided sciatica M54.41 and Hyperlipidemia, unspecified hyperlipidemia E78.5 [facility] [place] [address] [address] Aug, Neck pain M54.2 and Low back pain M54.5 [facility] [place] [address] [address] Jun, [facility] [place] [address] [address] Jun, [facility] [place] [address] [address] Jun, CAD (coronary artery disease ) 414.00 ; Hyperlipidemia 272.4 and Anemia 285.9 [facility] [place] [address] [address] Feb, [facility] [place] [address] [id number] [place] [address] Feb, [facility] [place] [address] [id number] [address] [place] [address] Jan, [facility] [place] [id number] [place] [address] Jan, [facility] [address] [id number] [address] [place] [address], [place] [address] Jan, [facility] [address] [id number] [address] [place] [address], [place] [address] Jan, [facility] [address] [id number] [address] [place] [address], [place] [address] Dec, 2014 [facility] [address] [id number] [address] [place] [address], [place] [address] Dec, 2014 [facility] [address] [id number] [address] [place] [address], [place] [address] Dec, 2014 [facility] [address] [id number] [address] [place] [address], [place] [address] Dec, 2014 [facility] [address] [id number] [address] [place] [address], [place] [address] Dec, 2014 [facility] [address] [id number] [address] [place] [address], [place] [address] Dec, 2014 [facility] [address] [id number] [address] [place] [address], [place] [address] Dec, 2014 [facility] [address] [id number] [address] [place] [address], [place] [address] Dec, [facility] [address] [id number] [address] [place] [address], [place] [address] Dec, 2014 [facility] [address] [id number] [address] [place] [address], [place] [address] Dec, 2014 [facility] [address] [id number] [address] [place] [address], [place] [address] Dec, 2014 [facility] [address] [id number] [address] [place] [address] Dec, 2014 [facility] [address] [id number] [address] [place] [address] Nov, [facility] [address] [id number] [address] [place] [address], [place] [address] Nov, [facility] [address] [id number] [address] [place] [address], [place] [address] Nov, [facility] [address] [id number] [address] [place] [address], [place] [address] Nov, [facility] [address] [id number] [address] [place] [address], [place] [address] Oct, [facility] [address] [id number] [address] [place] [address], [place] [address] Oct, [facility] [address] [id number] [address] [place] [address], [place] [address] Sep, [facility] [address] [id number] [address] [place] [address], [place] [address] Sep, [facility] [address] [id number] [address] [place] [address], [place] [address] Aug, [facility] [address] [id number] [address] [place] [address], [place] [address] Aug, [facility] [address] [id number] [address] [place] [address], [place] [address] 30 Jul, 2014 [facility] [address] [id number] [address] [place] [address], [place] [address] 30 Jul, 2014 [facility] [address] [id number] [address] [place] [address], [place] [address] 16 Jul, 2013 [facility] [address] [id number] [address] [place] [address], [place] [address] 16 Jul, 2014 [facility] [address] [id number] [address] [place] [address], [place] [address] 15 Jul, 2014 [facility] [address] [id number] [address] [place] [address], [place] [address] 12 Jul, 2014 [facility] [address] [id number] [address] [place] [address], [place] [address] Jul, [facility] [address] [id number] [facility] [place] [place] [address] Jul, [facility] [address] [id number] [facility] [place] [place] [address] Jul, [facility] [address] [id number] [facility] [place] [address] Jul, [facility] [address] [id number] [address] [place] [address], [place] [address] Jul, [facility] [address] [id number] [address] [place] [address], [place] [address] Jul, [facility] [address] [id number] [address] [place] [address], [place] [address] Jul, [facility] [address] [id number] [address] [place] [address], [place] [address] Jun, [facility] [address] [id number] [address] [place] [address], [place] [address] Jun, [facility] [address] [id number] [address] [place] [address], [place] [address] Jun, [facility] [address] [id number] [address] [place] [address], [place] [address] Jun, [facility] [address] [id number] [address] [place] [address], [place] [address] Jun, [facility] [address] [id number] [address] [place] [address], [place] [address] Jun, [facility] [address] [id number] [address] [place] [address], [place] [address] Jun, [facility] [address] [id number] [address] [place] [address], [place] [address] Jun, [facility] [address] [id number] [address] [place] [address], [place] [address] May, [facility] [address] [id number] [facility] [place] [place] [address] May, [facility] [address] [id number] [facility] [place] [place] [address] Apr, [facility] [address] [id number] [facility] [place] [place] [address] Apr, [facility] [address] [id number] [address] [place] [address], [place] [address] Apr, [facility] [address] [id number] [facility] [place] [place] [address] Apr, [facility] [address] [id number] [address] [place] [address], [place] [address] March, [facility] [address] [id number] [address] [place] [address], [place] [address] March, [facility] [address] [id number] [address] [place] [address], [place] [address] March, [facility] [address] [id number] [address] [place] [address], [place] [address] March, [facility] [address] [id number] [address] [place] [address], [place] [address] March, [facility] [address] [id number] [address] [place] [address], [place] [address] March, [facility] [address] [id number] [address] [place] [address], [place] [address] March, [facility] [address] [id number] [address] [place] [address], [place] [address] March, [facility] [address] [id number] [address] [place] [address], [place] [address] March, [facility] [address] [id number] [address] [place] [address], [place] [address] March, [facility] [address] [id number] [address] [place] [address], [place] [address] March, [facility] [address] [id number] [address] [place] [address], [place] [address] Nov, [facility] [address] [id number] [address] [place] [address], [place] [address] Nov, [facility] [address] [id number] [address] [place] [address], [place] [address] Nov, [facility] [address] [id number] [address] [place] [address], [place] [address] Oct, [facility] [address] [id number] [address] [place] [address], [place] [address] Oct, [facility] [address] [id number] [address] [place] [address], [place] [address] Aug, [facility] [address] [id number] [address] [place] [address], [place] [address] Aug, [facility] [address] [id number] [place] [id number] Jun, [facility] [place] [address] [id number] [place] [id number] Apr, [facility] [address] [id number] [address] [place] [address], [place] [address] Apr, [facility] [address] [id number] [address] [place] [address], [place] [address] Apr, [facility] [place] [address] [id number] [place] [id number] March, [facility] [place] [address] [id number] [place] [id number] Feb, [facility] [place] [address] [id number] [place] [id number] Jan, [facility] [address] [id number] [address] [place] [address], [place] [address] Jan, [facility] [address] [id number] [address] [place] [address], [place] [address] Jan, [facility] [address] [id number] [address] [place] [address], [place] [address] Jan, [facility] [place] [address] [id number] [place] [id number] Dec, [facility] [place] [address] [id number] [place] [id number] Dec, [facility] [address] [id number] [address] [place] [address], [place] [address] Dec, [facility] [address] [id number] [address] [place] [address], [place] [address] Dec, [facility] [address] [id number] [address] [place] [address], [place] [address] Dec, [facility] [address] [facility] [id number] [address] [place] [address], [place] [address] Nov, [facility] [address] [id number] [address] [place] [address], [place] [address] Nov, [facility] [place] [address] [id number] [place] [id number] Nov, [facility] [address] [id number] [address] [place] [address], [place] [address] Nov, [facility] [place] [address] [id number] [place] [id number] Nov, [facility] [place] [address] [id number] [place] [id number] Nov, [facility] [place] [address] [id number] [place] [id number] Oct, [facility] [place] [address] [id number] [place] [id number] Oct, [facility] [address] [id number] [address] [place] [address], [place] [address] Oct, [facility] [address] [id number] [address] [place] [address], [place] [address] Oct, [facility] [address] [id number] [address] [place] [address] Oct, [facility] [address] [facility] [id number] [address] [place] [address] Sep, [facility] [address] [facility] [id number] [address] [place] [address] Sep, [facility] [place] [address] [id number] [place] [id number] Sep, [facility] [place] [address] [id number] [place] [id number] Sep, [facility] [place] [address] [id number] [place] [id number] Sep, [facility] [address] [facility] [id number] [address] [place] [address] Sep, [facility] [address] [facility] [id number] [address] [place] [address] Aug, [facility] [place] [address] [id number] [place] [id number] Aug, [facility] [address] [facility] [id number] [address] [place] [address] Aug, [facility] [place] [address] [id number] [place] [id number] Jul, [facility] [place] [address] [id number] [place] [id number] Jul, [facility] [place] [address] [id number] [place] [id number] Jun, [facility] [place] [address] [id number] [place] [id number] May, [facility] [place] [address] [id number] [place] [id number] Feb, [facility] [place] [address] [id number] [place] [id number] Feb, [facility] [place] [address] [id number] [place] [id number] Feb, [facility] [place] [address] [id number] [place] [id number] Dec, [facility] [address] [id number] [place] [id number] Dec, [facility] [place] [address] [id number] [address] [place] [id number] Oct, [facility] [place] [address] [id number] [address] [place] [id number] Sep, [facility] [place] [address] [id number] [address] [place] [id number] Sep, [facility] [place] [address] [id number] [address] [place] [id number] Sep, [facility] [place] [address] [id number] [address] [place] [id number] Sep, [facility] [place] [address] [id number] [address] [place] [id number] March, [facility] [place] [address] [id number] [address] [place] [id number] Sep, [facility] [place] [address] [id number] [address] [place] [id number] Jul, [facility] [place] [address] [id number] [address] [place] [id number] May, [facility] [place] [address] [id number] [address] [place] [id number] Jan, [facility] [place] [address] [id number] [address] [place] [id number] Sep, [facility] [place] [address] [id number] [address] [place] [id number] Aug, IMMUNIZATIONS No Known Immunizations SOCIAL HISTORY Never Assessed REASON FOR VISIT [facility] PLAN OF CARE VITAL SIGNS [...] stents in heart Hospitalization History Pelvic Inflammatory Disease-[facility] 09/22 Hospitalization History 2 inpatient psychiatric treatments, suicide attempts
--- OUTSIDE RECORDS SUMMARY | 2020-05-31 11:48 | XMS REPORT ---
Author Author Jeane Camacho Doctor Organization [facility] Address Unknown Phone Unavailable Care Team Providers Care Locker Room Clerk Name Role Phone Migration, Doctor Unavailable Unavailable PROBLEMS Type Condition ICD9-CM Code OAF91-RZ Code Onset Dates Condition S tatus SNOMED Code Problem Depression F32.9 Active 63650362 Problem Anxiety F41.9 Active 28641016 Problem Environmental allergies Z91.09 Active 789224352 Problem Atherosclerotic heart diseas e of [place] coronary artery without angina pectoris I25.10 Active 222878268 Problem Lumbago with sciatica, unspecified side M54.40 Active 126975600 Problem Chronic pain syndrome G89.4 Active 450445583 Problem Hypercholesterolemia with hypertriglyceridemia E78 .2 Active 338407762 Problem Major depressive disorder, recurrent sev ere without psychotic features F33.2 Active 70070703 Problem Dysthymia (or depressive neurosis) F34.1 Active 26359551 Problem Cigarette nicotine dependence without complication F17.210 Active 00045396 Problem Alcohol use disorder, moderate, in sustained remission F10.21 Active 44795219 Problem Cannabis use disorder, mild, abuse F12.10 Active 12886310 Problem Elevated blood pressure I10 Active 36767494 ALLERGIES No Information ENCOUNTERS Encounter Location Date Diagnosis [facility] [address] [id number] [address] [place] [address] Dec, Major depressive disorder, r ecurrent severe without psychotic features F33.2 ; Chronic pain syndrome G89.4 and Encounter for immunization Z23 [facility] [address] [id number] [place] [id number] Aug, Elevated blood pressure I10 [facility] [address] [facility] [id number] [address] [place] [address] May, Hypercholesterolemia with hy pertriglyceridemia E78.2 and Atherosclerotic heart disease of [place] coronary artery without angina pectoris I25.10 [facility] [address] [facility] [id number] [address] [place] [address] March, Lumbago with sciatica, unspe cified side M54.40 ; Environmental allergies Z91.09 ; Hypercholesterolemia with hypertriglyceridemia E78.2 and Atherosclerotic heart disease of [place] coronary artery without angina pectoris I25.10 [facility] [address] [id number] [address] [place] [address] 14 Dec, 2017 Severe episode of recurrent major depressive disorder, without psychotic features F33.2 ; Alcohol use disorder, moderate, in sustained remission F10.21 and Cannabis use disorder, mild, abuse F12.10 [facility] [address] [facility] [id number] [address] [place] [address] 12 Dec, 2017 Severe episode of recurrent major depressive disorder, without psychotic features F33.2 [place] [address] [facility] [id number] [address] [place] [address] Nov, [place] [address] [id number] [address] [place] [address] 08 Nov, 2017 Atherosclerotic heart diseas e of [place] coronary artery without angina pectoris I25.10 ; Hypercholesterolemia with hypertriglyceridemia E78.2 ; Depression F32.9 and Cigarette nicotine dependence without complication F17.210 [place] [address] [facility] [id number] [address] [place] [address] Oct, [facility] [address] [id number] [address] [place] [address] Jul, [facility] [address] [id number] [address] [place] [address] Jun, [facility] [address] [id number] [address] [place] [address] Apr, Pain in thoracic spine M54.6 and Lumbago with sciatica, unspecified side M54.40 [facility] [address] [id number] [address] [place] [address] March, [place] [address] [facility] [id number] [address] [place] [address] March, Depression F32.9 [place] [address] [facility] [id number] [address] [place] [address] March, Anxiety F41.9 ; Depression F 32.9 ; Atherosclerotic heart disease of [place] coronary artery without angina pectoris I25.10 ; Hypercholesterolemia with hypertriglyceridemia E78.2 ; Right wrist tendonitis M77.8 and Environmental allergies Z91.09 [facility] [address] [id number] [place] [facility] [id number] Dec, [place] [address] [id number] [address] [place] [address] Nov, Iron deficiency anemia, unsp ecified iron deficiency anemia type D50.9 ; Anxiety F41.9 ; Dysthymia (or depressive neurosis) F34.1 and Hypercholesterolemia with hypertriglyceridemia E78.2 [place] [id number] [address] [place] [address] Oct, [place] [address] [address] Oct, [address] [address] Oct, Dysthymia (or depressive sherice rosis) F34.1 ; Atherosclerotic heart disease of [place] coronary artery without angina pectoris I25.10 ; Coronary atherosclerosis due to lipid rich plaque I25.83 ; Hypercholesterolemia with hypertriglyceridemia E78.2 ; Iron deficiency anemia, unspecified iron deficiency anemia type D50.9 ; Hospital discharge follow-up Z09 ; History of PID Z87.42 ; Environmental allergies Z91.09 and Dysuria R30.0 [place] [address] [id number] [address] [place] [address] Sep, [place] [address] [id number] Sep, [place] [address] [id number] [address] [place] [address] Aug, Dysthymia F34.1 and Anxiety F41.9 [place] [address] [place] [id number] [address] [place] [address] March, Coronary artery disease invo lving [place] coronary artery, angina presence unspecified, unspecified whether [place] or transplanted heart I25.10 ; Bipolar 1 disorder, depressed F31.9 ; Anxiety F41.9 and Dysthymia F34.1 [place] [address] [address] 04 Feb, 2016 Depression F32.9 and Stomach pain R10.9 [place] [address] [address] Jan, Hyperlipidemia 272.4 [place] [address] [address] 17 Dec, 2015 [place] [address] [address] 11 Dec, 2015 Major depressive disorder, r ecurrent episode, unspecified 296.30 ; Anxiety F41.9 ; Grief F43.20 and Dysthymia F34.1 [place] [address] [address] Dec, Anxiety F41.9 and Grief F43. 20 [place] [address] [address] Oct, Insomnia, unspecified G47.00 and Anxiety F41.9 [place] [address] [address] Oct, Dysthymia F34.1 ; Right shou lder pain M25.511 ; Sciatica, right M54.31 and Iron deficiency anemia, unspecified iron deficiency anemia type D50.9 [place] [address] [address] Sep, [place] [address] [address] Sep, Grief F43.20 [place] [address] [id number] [address] [place] [address] Sep, [facility] [address] [address] Sep, [facility] [id number] [place] [address] Sep, Hyperlipidemia E78.5 ; CAD ( coronary artery disease) I25.10 and HTN (hypertension) I10 [facility] [address] [address] Aug, Allergic rhinitis, unspecifi ed allergic rhinitis type J30.9 [facility] [address] [address] Aug, Left-sided low back pain wit h right-sided sciatica M54.41 and Hyperlipidemia, unspecified hyperlipidemia E78.5 [facility] [address] [address] Aug, Neck pain M54.2 and Low back pain M54.5 [facility] [address] [address] Jun, [facility] [address] [address] Jun, [facility] [address] [address] Jun, CAD (coronary artery disease ) 414.00 ; Hyperlipidemia 272.4 and Anemia 285.9 [facility] [address] [address] Feb, [facility] [id number] [place] [address] Feb, [facility] [address] [id number] [address] [place] [address] Jan, [facility] [id number] [place] [address] Jan, [facility] [address] [id number] [address] [place] [address], [place] [address] Jan, [facility] [address] [id number] [address] [place] [address], [place] [address] Jan, [facility] [address] [id number] [address] [place] [address], [place] [address] Dec, 2014 [facility] [address] [id number] [address] [place] [address], [place] [address] Dec, 2014 [facility] [address] [id number] [address] [place] [address], [place] [address] Dec, 2014 [facility] [address] [id number] [address] [place] [address], [place] [address] Dec, 2014 [facility] [address] [id number] [address] [place] [address], [place] [address] Dec, 2014 [facility] [address] [id number] [address] [place] [address], [place] [address] Dec, 2014 [facility] [address] [id number] [address] [place] [address], [place] [address] Dec, 2014 [facility] [address] [id number] [address] [place] [address], [place] [address] Dec, [facility] [address] [id number] [address] [place] [address], [place] [address] Dec, 2014 [facility] [address] [id number] [address] [place] [address], [place] [address] Dec, 2014 [facility] [address] [id number] [address] [place] [address], [place] [address] Dec, 2014 [facility] [address] [id number] [address] [place] [address] Dec, 2014 [facility] [address] [id number] [address] [place] [address] Nov, [facility] [address] [id number] [address] [place] [address], [place] [address] Nov, [facility] [address] [id number] [address] [place] [address], [place] [address] Nov, [facility] [address] [id number] [address] [place] [address], [place] [address] Nov, [facility] [address] [id number] [address] [place] [address], [place] [address] Oct, [facility] [address] [id number] [address] [place] [address], [place] [address] Oct, [facility] [address] [id number] [address] [place] [address], [place] [address] Sep, [facility] [address] [id number] [address] [place] [address], [place] [address] Sep, [facility] [address] [id number] [address] [place] [address], [place] [address] Aug, [facility] [address] [id number] [address] [place] [address], [place] [address] Aug, [facility] [address] [id number] [address] [place] [address], [place] [address] 30 Jul, 2014 [facility] [address] [id number] [address] [place] [address], [place] [address] 30 Jul, 2014 [facility] [address] [id number] [address] [place] [address], [place] [address] 16 Jul, 2013 [facility] [address] [id number] [address] [place] [address], [place] [address] 16 Jul, 2014 [facility] [address] [id number] [address] [place] [address], [place] [address] 15 Jul, 2014 [facility] [address] [id number] [address] [place] [address], [place] [address] 12 Jul, 2014 [facility] [address] [id number] [address] [place] [address], [place] [address] Jul, [facility] [address] [id number] [facility] [place] [address] Jul, [facility] [address] [id number] [facility] [place] [address] Jul, [facility] [address] [id number] [facility] [place] [address] Jul, [facility] [address] [id number] [address] [place] [address], [place] [address] Jul, [facility] [address] [id number] [address] [place] [address], [place] [address] Jul, [facility] [address] [id number] [address] [place] [address], [place] [address] Jul, [facility] [address] [id number] [address] [place] [address], [place] [address] Jun, [facility] [address] [id number] [address] [place] [address], [place] [address] Jun, [facility] [address] [id number] [address] [place] [address], [place] [address] Jun, [facility] [address] [id number] [address] [place] [address], [place] [address] Jun, [facility] [address] [id number] [address] [place] [address], [place] [address] Jun, [facility] [address] [id number] [address] [place] [address], [place] [address] Jun, [facility] [address] [id number] [address] [place] [address], [place] [address] Jun, [facility] [address] [id number] [address] [place] [address], [place] [address] Jun, [facility] [address] [id number] [address] [place] [address], [place] [address] May, [facility] [address] [id number] [facility] [place] [address] May, [facility] [address] [id number] [facility] [place] [address] Apr, [facility] [address] [id number] [facility] [place] [address] Apr, [facility] [address] [id number] [address] [place] [address], [place] [address] Apr, [facility] [address] [id number] [facility] [place] [address] Apr, [facility] [address] [id number] [address] [place] [address], [place] [address] March, [facility] [address] [id number] [address] [place] [address], [place] [address] March, [facility] [address] [id number] [address] [place] [address], [place] [address] March, [facility] [address] [id number] [address] [place] [address], [place] [address] March, [facility] [address] [id number] [address] [place] [address], [place] [address] March, [facility] [address] [id number] [address] [place] [address], [place] [address] March, [facility] [address] [id number] [address] [place] [address], [place] [address] March, [facility] [address] [id number] [address] [place] [address], [place] [address] March, [facility] [address] [id number] [address] [place] [address], [place] [address] March, [facility] [address] [id number] [address] [place] [address], [place] [address] March, [facility] [address] [id number] [address] [place] [address], [place] [address] March, [facility] [address] [id number] [address] [place] [address], [place] [address] Nov, [facility] [address] [id number] [address] [place] [address], [place] [address] Nov, [facility] [address] [id number] [address] [place] [address], [place] [address] Nov, [facility] [address] [id number] [address] [place] [address], [place] [address] Oct, [facility] [address] [id number] [address] [place] [address], [place] [address] Oct, [facility] [address] [id number] [address] [place] [address], [place] [address] Aug, [facility] [address] [id number] [address] [place] [address], [place] [address] Aug, [facility] [address] [id number] [place] [id number] Jun, [facility] [place] [address] [id number] [place] [id number] Apr, [facility] [address] [id number] [address] [place] [address], [place] [address] Apr, [facility] [address] [id number] [address] [place] [address], [place] [address] Apr, [facility] [place] [address] [id number] [place] [id number] March, [facility] [place] [address] [id number] [place] [id number] Feb, [facility] [place] [address] [id number] [place] [id number] Jan, [facility] [address] [id number] [address] [place] [address], [place] [address] Jan, [facility] [address] [id number] [address] [place] [address], [place] [address] Jan, [facility] [address] [id number] [address] [place] [address], [place] [address] Jan, [facility] [place] [address] [id number] [place] [id number] Dec, [facility] [place] [address] [id number] [place] [id number] Dec, [facility] [address] [id number] [address] [place] [address], [place] [address] Dec, [facility] [address] [id number] [address] [place] [address], [place] [address] Dec, [facility] [address] [id number] [address] [place] [address], [place] [address] Dec, [facility] [address] [facility] [id number] [address] [place] [address], [place] [address] Nov, [facility] [address] [id number] [address] [place] [address], [place] [address] Nov, [facility] [place] [address] [id number] [place] [id number] Nov, [facility] [address] [id number] [address] [place] [address], [place] [address] Nov, [facility] [place] [address] [id number] [place] [id number] Nov, [facility] [place] [address] [id number] [place] [id number] Nov, [facility] [place] [address] [id number] [place] [id number] Oct, [facility] [place] [address] [id number] [place] [id number] Oct, [facility] [address] [id number] [address] [place] [address], [place] [address] Oct, [facility] [address] [id number] [address] [place] [address], [place] [address] Oct, [facility] [address] [id number] [address] [place] [address] Oct, [facility] [address] [facility] [id number] [address] [place] [address] Sep, [facility] [address] [facility] [id number] [address] [place] [address] Sep, [facility] [place] [address] [id number] [place] [id number] Sep, [facility] [place] [address] [id number] [place] [id number] Sep, [facility] [place] [address] [id number] [place] [id number] Sep, [facility] [address] [facility] [id number] [address] [place] [address] Sep, [facility] [address] [facility] [id number] [address] [place] [address] Aug, [facility] [place] [address] [id number] [place] [id number] Aug, [facility] [address] [facility] [id number] [address] [place] [address] Aug, [facility] [place] [address] [id number] [place] [id number] Jul, [facility] [place] [address] [id number] [place] [id number] Jul, [facility] [place] [address] [id number] [place] [id number] Jun, [facility] [place] [address] [id number] [place] [id number] May, [facility] [place] [address] [id number] [place] [id number] Feb, [facility] [place] [address] [id number] [place] [id number] Feb, [facility] [place] [address] [id number] [place] [id number] Feb, [facility] [place] [address] [id number] [place] [id number] Dec, [facility] [address] [id number] [place] [id number] Dec, [facility] [address] [id number] [address] [place] [id number] Oct, [facility] [address] [id number] [address] [place] [phone] Sep, [facility] [address] [id number] [address] [place] [phone] Sep, [facility] [address] [id number] [address] [place] [id number] Sep, [facility] [address] [id number] [address] [place] [id number] Sep, [facility] [address] [id number] [address] [place] [id number] March, [facility] [address] [id number] [address] [place] [phone] Sep, [facility] [address] [id number] [address] [place] [id number] Jul, [facility] [address] [id number] [address] [place] [id number] May, [facility] [address] [id number] [address] [place] [phone] Jan, [facility] [address] [id number] [address] [place] [id number] Sep, [facility] [address] [id number] [address] [place] [id number] Aug, IMMUNIZATIONS No Known Immunizations SOCIAL HISTORY Never Assessed REASON FOR VISIT [facility] [place] VITAL SIGNS MEDICATIONS No [...] stents in heart Hospitalization History Pelvic Inflammatory Disease-[facility] 09/22 Hospitalization History 2 inpatient psychiatric treatments, suicide attempts
--- OUTSIDE RECORDS SUMMARY | 2020-05-31 11:48 | XMS REPORT ---
Author Author Janice Jeane Doctor Organization [facility] Address Unknown Phone Unavailable Care Team Providers Care Venetian Blind Assembler Name Role Phone Migration, Doctor Unavailable Unavailable PROBLEMS Type Condition ICD9-CM Code QSN07-DV Code Onset Dates Condition S tatus SNOMED Code Problem Depression F32.9 Active 27673876 Problem Anxiety F41.9 Active 45322006 Problem Environmental allergies Z91.09 Active 363526795 Problem Atherosclerotic heart diseas e of [place] coronary artery without angina pectoris I25.10 Active 168493821 Problem Lumbago with sciatica, unspecified side M54.40 Active 812933456 Problem Chronic pain syndrome G89.4 Active 887764835 Problem Hypercholesterolemia with hypertriglyceridemia E78 .2 Active 365661915 Problem Major depressive disorder, recurrent sev ere without psychotic features F33.2 Active 62746439 Problem Dysthymia (or depressive neurosis) F34.1 Active 12915707 Problem Cigarette nicotine dependence without complication F17.210 Active 82401928 Problem Alcohol use disorder, moderate, in sustained remission F10.21 Active 50343352 Problem Cannabis use disorder, mild, abuse F12.10 Active 45723534 Problem Elevated blood pressure I10 Active 32534318 ALLERGIES No Information ENCOUNTERS Encounter Location Date Diagnosis [facility] [address] [id number] [address] [place] [address] Dec, Major depressive disorder, r ecurrent severe without psychotic features F33.2 ; Chronic pain syndrome G89.4 and Encounter for immunization Z23 [facility] [address] [id number] [place] [id number] Aug, Elevated blood pressure I10 [facility] [address] [facility] [id number] [address] [place] [address] May, Hypercholesterolemia with hy pertriglyceridemia E78.2 and Atherosclerotic heart disease of [place] coronary artery without angina pectoris I25.10 [facility] [address] [facility] [id number] [address] [place] [address] March, Lumbago with sciatica, unspe cified side M54.40 ; Environmental allergies Z91.09 ; Hypercholesterolemia with hypertriglyceridemia E78.2 and Atherosclerotic heart disease of [place] coronary artery without angina pectoris I25.10 [facility] [address] [id number] [address] [place] [address] 14 Dec, 2017 Severe episode of recurrent major depressive disorder, without psychotic features F33.2 ; Alcohol use disorder, moderate, in sustained remission F10.21 and Cannabis use disorder, mild, abuse F12.10 [facility] [address] [facility] [id number] [address] [place] [address] 12 Dec, 2017 Severe episode of recurrent major depressive disorder, without psychotic features F33.2 [place] [address] [facility] [id number] [address] [place] [address] Nov, [place] [address] [id number] [address] [place] [id number] 08 Nov, 2017 Atherosclerotic heart diseas e of [place] coronary artery without angina pectoris I25.10 ; Hypercholesterolemia with hypertriglyceridemia E78.2 ; Depression F32.9 and Cigarette nicotine dependence without complication F17.210 [place] [address] [facility] [id number] [address] [place] [address] Oct, [facility] [address] [id number] [address] [place] [address] Jul, [facility] [address] [id number] [address] [place] [address] Jun, [facility] [address] [id number] [address] [place] [id number] Apr, Pain in thoracic spine M54.6 and Lumbago with sciatica, unspecified side M54.40 [facility] [address] [id number] [address] [place] [address] March, [place] [address] [facility] [id number] [address] [place] [address] March, Depression F32.9 [place] [address] [facility] [id number] [address] [place] [address] March, Anxiety F41.9 ; Depression F 32.9 ; Atherosclerotic heart disease of [place] coronary artery without angina pectoris I25.10 ; Hypercholesterolemia with hypertriglyceridemia E78.2 ; Right wrist tendonitis M77.8 and Environmental allergies Z91.09 [facility] [address] [id number] [place] [facility] [id number] Dec, [place] [address] [id number] [address] [place] [address] Nov, Iron deficiency anemia, unsp ecified iron deficiency anemia type D50.9 ; Anxiety F41.9 ; Dysthymia (or depressive neurosis) F34.1 and Hypercholesterolemia with hypertriglyceridemia E78.2 [place] [id number] [address] [place] [address] Oct, [place] [address] [address] Oct, [address] [address] Oct, Dysthymia (or depressive sherice rosis) F34.1 ; Atherosclerotic heart disease of [place] coronary artery without angina pectoris I25.10 ; Coronary atherosclerosis due to lipid rich plaque I25.83 ; Hypercholesterolemia with hypertriglyceridemia E78.2 ; Iron deficiency anemia, unspecified iron deficiency anemia type D50.9 ; Hospital discharge follow-up Z09 ; History of PID Z87.42 ; Environmental allergies Z91.09 and Dysuria R30.0 [place] [address] [id number] [address] [place] [address] Sep, [place] [address] [address] Sep, [place] [address] [id number] [address] [place] [address] Aug, Dysthymia F34.1 and Anxiety F41.9 [place] [address] [place] [id number] [address] [place] [address] March, Coronary artery disease invo lving north fork coronary artery, angina presence unspecified, unspecified whether north fork or transplanted heart I25.10 ; Bipolar 1 disorder, depressed F31.9 ; Anxiety F41.9 and Dysthymia F34.1 [place] [address] [address] 04 Feb, 2016 Depression F32.9 and Stomach pain R10.9 [place] [address] [address] Jan, Hyperlipidemia 272.4 [place] [address] [address] 17 Dec, 2015 [place] [address] [address] 11 Dec, 2015 Major depressive disorder, r ecurrent episode, unspecified 296.30 ; Anxiety F41.9 ; Grief F43.20 and Dysthymia F34.1 [place] [address] [address] Dec, Anxiety F41.9 and Grief F43. 20 [place] [address] [address] Oct, Insomnia, unspecified G47.00 and Anxiety F41.9 [place] [address] [address] Oct, Dysthymia F34.1 ; Right shou lder pain M25.511 ; Sciatica, right M54.31 and Iron deficiency anemia, unspecified iron deficiency anemia type D50.9 [place] [address] [address] Sep, [place] [address] [address] Sep, Grief F43.20 [place] [address] [id number] [address] [place] [address] Sep, [facility] [address] [address] Sep, [facility] [id number] [place] [address] Sep, Hyperlipidemia E78.5 ; CAD ( coronary artery disease) I25.10 and HTN (hypertension) I10 [facility] [address] [address] Aug, Allergic rhinitis, unspecifi ed allergic rhinitis type J30.9 [facility] [address] [address] Aug, Left-sided low back pain wit h right-sided sciatica M54.41 and Hyperlipidemia, unspecified hyperlipidemia E78.5 [facility] [address] [address] Aug, Neck pain M54.2 and Low back pain M54.5 [facility] [address] [address] Jun, [facility] [address] [address] Jun, [facility] [address] [address] Jun, CAD (coronary artery disease ) 414.00 ; Hyperlipidemia 272.4 and Anemia 285.9 [facility] [address] [address] Feb, [facility] [id number] [place] [address] Feb, [facility] [address] [id number] [address] [place] [address] Jan, [facility] [id number] [place] [address] Jan, [facility] [address] [id number] [address] [place] [address], [place] [address] Jan, [facility] [address] [id number] [address] [place] [address], [place] [address] Jan, [facility] [address] [id number] [address] [place] [address], [place] [address] Dec, 2014 [facility] [address] [id number] [address] [place] [address], [place] [address] Dec, 2014 [facility] [address] [id number] [address] [place] [address], [place] [address] Dec, 2014 [facility] [address] [id number] [address] [place] [address], [place] [address] Dec, 2014 [facility] [address] [id number] [address] [place] [address], [place] [address] Dec, 2014 [facility] [address] [id number] [address] [place] [address], [place] [address] Dec, 2014 [facility] [address] [id number] [address] [place] [address], [place] [address] Dec, 2014 [facility] [address] [id number] [address] [place] [address], [place] [address] Dec, [facility] [address] [id number] [address] [place] [address], [place] [address] Dec, 2014 [facility] [address] [id number] [address] [place] [address], [place] [address] Dec, 2014 [facility] [address] [id number] [address] [place] [address], [place] [address] Dec, 2014 [facility] [address] [id number] [address] [place] [address] Dec, 2014 [facility] [address] [id number] [address] [place] [address] Nov, [facility] [address] [id number] [address] [place] [address], [place] [address] Nov, [facility] [address] [id number] [address] [place] [address], [place] [address] Nov, [facility] [address] [id number] [address] [place] [address], [place] [address] Nov, [facility] [address] [id number] [address] [place] [address], [place] [address] Oct, [facility] [address] [id number] [address] [place] [address], [place] [address] Oct, [facility] [address] [id number] [address] [place] [address], [place] [address] Sep, [facility] [address] [id number] [address] [place] [address], [place] [address] Sep, [facility] [address] [id number] [address] [place] [address], [place] [address] Aug, [facility] [address] [id number] [address] [place] [address], [place] [address] Aug, [facility] [address] [id number] [address] [place] [address], [place] [address] 30 Jul, 2014 [facility] [address] [id number] [address] [place] [address], [place] [address] 30 Jul, 2014 [facility] [address] [id number] [address] [place] [address], [place] [address] 16 Jul, 2013 [facility] [address] [id number] [address] [place] [address], [place] [address] 16 Jul, 2014 [facility] [address] [id number] [address] [place] [address], [place] [address] 15 Jul, 2014 [facility] [address] [id number] [address] [place] [address], [place] [address] 12 Jul, 2014 [facility] [address] [id number] [address] [place] [address], [place] [address] Jul, [facility] [address] [id number] [facility] [place] [address] Jul, [facility] [address] [id number] [facility] [place] [address] Jul, [facility] [address] [id number] [facility] [place] [address] Jul, [facility] [address] [id number] [address] [place] [address], [place] [address] Jul, [facility] [address] [id number] [address] [place] [address], [place] [address] Jul, [facility] [address] [id number] [address] [place] [address], [place] [address] Jul, [facility] [address] [id number] [address] [place] [address], [place] [address] Jun, [facility] [address] [id number] [address] [place] [address], [place] [address] Jun, [facility] [address] [id number] [address] [place] [address], [place] [address] Jun, [facility] [address] [id number] [address] [place] [address], [place] [address] Jun, [facility] [address] [id number] [address] [place] [address], [place] [address] Jun, [facility] [address] [id number] [address] [place] [address], [place] [address] Jun, [facility] [address] [id number] [address] [place] [address], [place] [address] Jun, [facility] [address] [id number] [address] [place] [address], [place] [address] Jun, [facility] [address] [id number] [address] [place] [address], [place] [address] May, [facility] [address] [id number] [facility] [place] [address] May, [facility] [address] [id number] [facility] [place] [address] Apr, [facility] [address] [id number] [facility] [place] [address] Apr, [facility] [address] [id number] [address] [place] [address], [place] [address] Apr, [facility] [address] [id number] [facility] [place] [address] Apr, [facility] [address] [id number] [address] [place] [address], [place] [address] March, [facility] [address] [id number] [address] [place] [address], [place] [address] March, [facility] [address] [id number] [address] [place] [address], [place] [address] March, [facility] [address] [id number] [address] [place] [address], [place] [address] March, [facility] [address] [id number] [address] [place] [address], [place] [address] March, [facility] [address] [id number] [address] [place] [address], [place] [address] March, [facility] [address] [id number] [address] [place] [address], [place] [address] March, [facility] [address] [id number] [address] [place] [address], [place] [address] March, [facility] [address] [id number] [address] [place] [address], [place] [address] March, [facility] [address] [id number] [address] [place] [address], [place] [address] March, [facility] [address] [id number] [address] [place] [address], [place] [address] March, [facility] [address] [id number] [address] [place] [address], [place] [address] Nov, [facility] [address] [id number] [address] [place] [address], [place] [address] Nov, [facility] [address] [id number] [address] [place] [address], [place] [address] Nov, [facility] [address] [id number] [address] [place] [address], [place] [address] Oct, [facility] [address] [id number] [address] [place] [address], [place] [address] Oct, [facility] [address] [id number] [address] [place] [address], [place] [address] Aug, [facility] [address] [id number] [address] [place] [address], [place] [address] Aug, [facility] [address] [id number] [place] [id number] Jun, [facility] [place] [address] [id number] [place] [id number] Apr, [facility] [address] [id number] [address] [place] [address], [place] [address] Apr, [facility] [address] [id number] [address] [place] [address], [place] [address] Apr, [facility] [place] [address] [id number] [place] [id number] March, [facility] [address] [id number] [place] [id number] Feb, [facility] [place] [address] [id number] [place] [id number] Jan, [facility] [address] [id number] [address] [place] [address], [place] [address] Jan, [facility] [address] [id number] [address] [place] [address], [place] [address] Jan, [facility] [address] [id number] [address] [place] [address], [place] [address] Jan, [facility] [place] [address] [id number] [place] [id number] Dec, [facility] [place] [address] [id number] [place] [id number] Dec, [facility] [address] [id number] [address] [place] [address], [place] [address] Dec, [facility] [address] [id number] [address] [place] [address], [place] [address] Dec, [facility] [address] [id number] [address] [place] [address], [place] [address] Dec, [facility] [address] [facility] [id number] [address] [place] [address], [place] [address] Nov, [facility] [address] [id number] [address] [place] [address], [place] [address] Nov, [facility] [place] [address] [id number] [place] [id number] Nov, [facility] [address] [id number] [address] [place] [address], [place] [address] Nov, [facility] [place] [address] [id number] [place] [id number] Nov, [facility] [place] [address] [id number] [place] [id number] Nov, [facility] [place] [address] [id number] [place] [id number] Oct, [facility] [place] [address] [id number] [place] [id number] Oct, [facility] [address] [id number] [address] [place] [address], [place] [address] Oct, [facility] [address] [id number] [address] [place] [address], [place] [address] Oct, [facility] [address] [id number] [address] [place] [address] Oct, [facility] [address] [facility] [id number] [address] [place] [address] Sep, [facility] [address] [facility] [id number] [address] [place] [address] Sep, [facility] [place] [address] [id number] [place] [id number] Sep, [facility] [place] [address] [id number] [place] [id number] Sep, [facility] [place] [address] [id number] [place] [id number] Sep, [facility] [address] [facility] [id number] [address] [place] [address] Sep, [facility] [address] [facility] [id number] [address] [place] [address] Aug, [facility] [place] [address] [id number] [place] [id number] Aug, [facility] [address] [facility] [id number] [address] [place] [address] Aug, [facility] [place] [address] [id number] [place] [id number] Jul, [facility] [place] [address] [id number] [place] [id number] Jul, [facility] [place] [address] [id number] [place] [id number] Jun, [facility] [place] [address] [id number] [place] [id number] May, [facility] [place] [address] [id number] [place] [id number] Feb, [facility] [place] [address] [id number] [place] [id number] Feb, [facility] [place] [address] [id number] [place] [id number] Feb, [facility] [place] [address] [id number] [place] [id number] Dec, [facility] [address] [id number] [place] [id number] Dec, [facility] [address] [id number] [address] [place] [address] Oct, [facility] [address] [id number] [address] [place] [address] Sep, [facility] [address] [id number] [address] [place] [address] Sep, [facility] [address] [id number] [address] [place] [address] Sep, [facility] [address] [id number] [address] [place] [address] Sep, [facility] [address] [id number] [address] [place] [address] March, [facility] [address] [id number] [address] [place] [address] Sep, [facility] [address] [id number] [address] [place] [address] Jul, [facility] [address] [id number] [address] [place] [address] May, [facility] [address] [id number] [address] [place] [address] Jan, [facility] [address] [id number] [address] [place] [address] Sep, [facility] [address] [id number] [address] [place] [address] Aug, IMMUNIZATIONS No Known Immunizations SOCIAL HISTORY Never Assessed REASON FOR VISIT [facility] [place] VITAL SIGNS [...] stents in heart Hospitalization History Pelvic Inflammatory Disease-[facility] 09/22 Hospitalization History 2 inpatient psychiatric treatments, suicide attempts
--- OUTSIDE RECORDS SUMMARY | 2020-05-31 11:48 | XMS REPORT ---
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 Active 170361448 Problem Lumbago with sciatica, unspecified side M54.40 Active 657441954 Problem Chronic pain syndrome G89.4 Active 580833282 Problem Hypercholesterolemia with hypertriglyceridemia E78 .2 Active 006286726 Problem Major depressive disorder, recurrent sev ere without psychotic features F33.2 Active 21371063 Problem Dysthymia (or depressive neurosis) F34.1 Active 71251919 Problem Cigarette nicotine dependence without complication F17.210 Active 41786389 Problem Alcohol use disorder, moderate, in sustained remission F10.21 Active 33755308 Problem Cannabis use disorder, mild, abuse F12.10 Active 38741656 Problem Elevated blood pressure I10 Active 27767057 ALLERGIES No Information ENCOUNTERS Encounter Location Date Diagnosis [facility] [address] [id number] [address] [place] [address] Dec, Major depressive disorder, r ecurrent severe without psychotic features F33.2 ; Chronic pain syndrome G89.4 and Encounter for immunization Z23 [facility] [address] [id number] [place] [id number] Aug, Elevated blood pressure I10 [facility] [address] [facility] [id number] [address] [place] [address] May, Hypercholesterolemia with hy pertriglyceridemia E78.2 and Atherosclerotic heart disease of tetlin coronary artery without angina pectoris I25.10 [facility] [address] [facility] [id number] [address] [place] [address] March, Lumbago with sciatica, unspe cified side M54.40 ; Environmental allergies Z91.09 ; Hypercholesterolemia with hypertriglyceridemia E78.2 and Atherosclerotic heart disease of tetlin coronary artery without angina pectoris I25.10 [facility] [address] [id number] [address] [place] [id number] 14 Dec, 2017 Severe episode of recurrent major depressive disorder, without psychotic features F33.2 ; Alcohol use disorder, moderate, in sustained remission F10.21 and Cannabis use disorder, mild, abuse F12.10 [facility] [address] [facility] [id number] [address] [place] [address] 12 Dec, 2017 Severe episode of recurrent major depressive disorder, without psychotic features F33.2 [place] [address] [facility] [id number] [address] [place] [address] Nov, [place] [address] [place] [address] [id number] [address] [place] [id number] 08 Nov, 2017 Atherosclerotic heart diseas e of tetlin coronary artery without angina pectoris I25.10 ; Hypercholesterolemia with hypertriglyceridemia E78.2 ; Depression F32.9 and Cigarette nicotine dependence without complication F17.210 [place] [address] [facility] [id number] [address] [place] [address] Oct, [facility] [address] [id number] [address] [place] [address] Jul, [facility] [address] [id number] [address] [place] [address] Jun, [facility] [address] [id number] [address] [place] [address] Apr, Pain in thoracic spine M54.6 and Lumbago with sciatica, unspecified side M54.40 [facility] [address] [id number] [address] [place] [id number] March, [place] [address] [facility] [id number] [address] [place] [address] March, Depression F32.9 [place] [address] [facility] [id number] [address] [place] [address] March, Anxiety F41.9 ; Depression F 32.9 ; Atherosclerotic heart disease of tetlin coronary artery without angina pectoris I25.10 ; Hypercholesterolemia with hypertriglyceridemia E78.2 ; Right wrist tendonitis M77.8 and Environmental allergies Z91.09 [facility] [address] [id number] [place] [facility] [id number] Dec, [place] [address] [place] [address] [id number] [address] [place] [address] Nov, Iron deficiency anemia, unsp ecified iron deficiency anemia type D50.9 ; Anxiety F41.9 ; Dysthymia (or depressive neurosis) F34.1 and Hypercholesterolemia with hypertriglyceridemia E78.2 [place] [id number] [address] [place] [address] Oct, [place] [address] [address] Oct, [address] [address] Oct, Dysthymia (or depressive sherice rosis) F34.1 ; Atherosclerotic heart disease of tetlin coronary artery without angina pectoris I25.10 ; Coronary atherosclerosis due to lipid rich plaque I25.83 ; Hypercholesterolemia with hypertriglyceridemia E78.2 ; Iron deficiency anemia, unspecified iron deficiency anemia type D50.9 ; Hospital discharge follow-up Z09 ; History of PID Z87.42 ; Environmental allergies Z91.09 and Dysuria R30.0 [place] [address] [address] [id number] [address] [place] [address] Sep, [place] [address] [address] Sep, [place] [address] [place] [address] [id number] [address] [place] [address] Aug, Dysthymia F34.1 and Anxiety F41.9 [place] [address] [place] [id number] [address] [place] [address] March, Coronary artery disease invo lving tetlin coronary artery, angina presence unspecified, unspecified whether tetlin or transplanted heart I25.10 ; Bipolar 1 disorder, depressed F31.9 ; Anxiety F41.9 and Dysthymia F34.1 [place] [address] [address] 04 Feb, 2016 Depression F32.9 and Stomach pain R10.9 [place] [address] [address] Jan, Hyperlipidemia 272.4 [place] [address] [address] 17 Dec, 2015 [place] [address] [address] 11 Dec, 2015 Major depressive disorder, r ecurrent episode, unspecified 296.30 ; Anxiety F41.9 ; Grief F43.20 and Dysthymia F34.1 [place] [address] [address] Dec, Anxiety F41.9 and Grief F43. 20 [place] [address] [address] Oct, Insomnia, unspecified G47.00 and Anxiety F41.9 [place] [address] [address] Oct, Dysthymia F34.1 ; Right shou lder pain M25.511 ; Sciatica, right M54.31 and Iron deficiency anemia, unspecified iron deficiency anemia type D50.9 [place] [address] [address] Sep, [place] [address] [address] Sep, Grief F43.20 [place] [address] [place] [id number] [address] [place] [address] Sep, [facility] [address] [address] Sep, [facility] [id number] [place] [address] Sep, Hyperlipidemia E78.5 ; CAD ( coronary artery disease) I25.10 and HTN (hypertension) I10 [facility] [address] [address] Aug, Allergic rhinitis, unspecifi ed allergic rhinitis type J30.9 [facility] [address] [address] Aug, Left-sided low back pain wit h right-sided sciatica M54.41 and Hyperlipidemia, unspecified hyperlipidemia E78.5 [facility] [address] [address] Aug, Neck pain M54.2 and Low back pain M54.5 [facility] [address] [address] Jun, [facility] [address] [address] Jun, [facility] [address] [address] Jun, CAD (coronary artery disease ) 414.00 ; Hyperlipidemia 272.4 and Anemia 285.9 [facility] [address] [address] Feb, [facility] [id number] [place] [address] Feb, [facility] [address] [id number] [address] [place] [address] Jan, [facility] [id number] [place] [address] Jan, [facility] [address] [id number] [address] [place] [address], [place] [address] Jan, [facility] [address] [id number] [address] [place] [address], [place] [address] Jan, [facility] [address] [id number] [address] [place] [address], [place] [address] Dec, 2014 [facility] [address] [id number] [address] [place] [address], [place] [address] Dec, 2014 [facility] [address] [id number] [address] [place] [address], [place] [address] Dec, 2014 [facility] [address] [id number] [address] [place] [address], [place] [address] Dec, 2014 [facility] [address] [id number] [address] [place] [address], [place] [address] Dec, 2014 [facility] [address] [id number] [address] [place] [address], [place] [address] Dec, 2014 [facility] [address] [id number] [address] [place] [address], [place] [address] Dec, 2014 [facility] [address] [id number] [address] [place] [address], [place] [address] Dec, [facility] [address] [id number] [address] [place] [address], [place] [address] Dec, 2014 [facility] [address] [id number] [address] [place] [address], [place] [address] Dec, 2014 [facility] [address] [id number] [address] [place] [address], [place] [address] Dec, 2014 [facility] [address] [id number] [address] [place] [address] Dec, 2014 [facility] [address] [id number] [address] [place] [address] Nov, [facility] [address] [id number] [address] [place] [address], [place] [address] Nov, [facility] [address] [id number] [address] [place] [address], [place] [address] Nov, [facility] [address] [id number] [address] [place] [address], [place] [address] Nov, [facility] [address] [id number] [address] [place] [address], [place] [address] Oct, [facility] [address] [id number] [address] [place] [address], [place] [address] Oct, [facility] [address] [id number] [address] [place] [address], [place] [address] Sep, [facility] [address] [id number] [address] [place] [address], [place] [address] Sep, [facility] [address] [id number] [address] [place] [address], [place] [address] Aug, [facility] [address] [id number] [address] [place] [address], [place] [address] Aug, [facility] [address] [id number] [address] [place] [address], [place] [address] 30 Jul, 2014 [facility] [address] [id number] [address] [place] [address], [place] [address] 30 Jul, 2014 [facility] [address] [id number] [address] [place] [address], [place] [address] 16 Jul, 2013 [facility] [address] [id number] [address] [place] [address], [place] [address] 16 Jul, 2014 [facility] [address] [id number] [address] [place] [address], [place] [address] 15 Jul, 2014 [facility] [address] [id number] [address] [place] [address], [place] [address] 12 Jul, 2014 [facility] [address] [id number] [address] [place] [address], [place] [address] Jul, [facility] [address] [id number] [facility] [place] [address] Jul, [facility] [address] [id number] [facility] [place] [address] Jul, [facility] [address] [id number] [facility] [place] [address] Jul, [facility] [address] [id number] [address] [place] [address], [place] [address] Jul, [facility] [address] [id number] [address] [place] [address], [place] [address] Jul, [facility] [address] [id number] [address] [place] [address], [place] [address] Jul, [facility] [address] [id number] [address] [place] [address], [place] [address] Jun, [facility] [address] [id number] [address] [place] [address], [place] [address] Jun, [facility] [address] [id number] [address] [place] [address], [place] [address] Jun, [facility] [address] [id number] [address] [place] [address], [place] [address] Jun, [facility] [address] [id number] [address] [place] [address], [place] [address] Jun, [facility] [address] [id number] [address] [place] [address], [place] [address] Jun, [facility] [address] [id number] [address] [place] [address], [place] [address] Jun, [facility] [address] [id number] [address] [place] [address], [place] [address] Jun, [facility] [address] [id number] [address] [place] [address], [place] [address] May, [facility] [address] [id number] [facility] [place] [address] May, [facility] [address] [id number] [facility] [place] [address] Apr, [facility] [address] [id number] [facility] [place] [address] Apr, [facility] [address] [id number] [address] [place] [address], [place] [address] Apr, [facility] [address] [id number] [facility] [place] [address] Apr, [facility] [address] [id number] [address] [place] [address], [place] [address] March, [facility] [address] [id number] [address] [place] [address], [place] [address] March, [facility] [address] [id number] [address] [place] [address], [place] [address] March, [facility] [address] [id number] [address] [place] [address], [place] [address] March, [facility] [address] [id number] [address] [place] [address], [place] [address] March, [facility] [address] [id number] [address] [place] [address], [place] [address] March, [facility] [address] [id number] [address] [place] [address], [place] [address] March, [facility] [address] [id number] [address] [place] [address], [place] [address] March, [facility] [address] [id number] [address] [place] [address], [place] [address] March, [facility] [address] [id number] [address] [place] [address], [place] [address] March, [facility] [address] [id number] [address] [place] [address], [place] [address] March, [facility] [address] [id number] [address] [place] [address], [place] [address] Nov, [facility] [address] [id number] [address] [place] [address], [place] [address] Nov, [facility] [address] [id number] [address] [place] [address], [place] [address] Nov, [facility] [address] [id number] [address] [place] [address], [place] [address] Oct, [facility] [address] [id number] [address] [place] [address], [place] [address] Oct, [facility] [address] [id number] [address] [place] [address], [place] [address] Aug, [facility] [address] [id number] [address] [place] [address], [place] [address] Aug, [facility] [address] [id number] [place] [id number] Jun, [facility] [place] [address] [id number] [place] [id number] Apr, [facility] [address] [id number] [address] [place] [address], [place] [address] Apr, [facility] [address] [id number] [address] [place] [address], [place] [address] Apr, [facility] [place] [address] [id number] [place] [id number] March, [facility] [place] [address] [id number] [place] [id number] Feb, [facility] [place] [address] [id number] [place] [id number] Jan, [facility] [address] [id number] [address] [place] [address], [place] [address] Jan, [facility] [address] [id number] [address] [place] [address], [place] [address] Jan, [facility] [address] [id number] [address] [place] [address], [place] [address] Jan, [facility] [place] [address] [id number] [place] [id number] Dec, [facility] [place] [address] [id number] [place] [id number] Dec, [facility] [address] [id number] [address] [place] [address], [place] [address] Dec, [facility] [address] [id number] [address] [place] [address], [place] [address] Dec, [facility] [address] [id number] [address] [place] [address], [place] [address] Dec, [facility] [address] [facility] [id number] [address] [place] [address], [place] [address] Nov, [facility] [address] [id number] [address] [place] [address], [place] [address] Nov, [facility] [place] [address] [id number] [place] [id number] Nov, [facility] [address] [id number] [address] [place] [address], [place] [address] Nov, [facility] [place] [address] [id number] [place] [id number] Nov, [facility] [place] [address] [id number] [place] [id number] Nov, [facility] [place] [address] [id number] [place] [id number] Oct, [facility] [place] [address] [id number] [place] [id number] Oct, [facility] [address] [id number] [address] [place] [address], [place] [address] Oct, [facility] [address] [id number] [address] [place] [address], [place] [address] Oct, [facility] [address] [id number] [address] [place] [address] Oct, [facility] [address] [facility] [id number] [address] [place] [address] Sep, [facility] [address] [facility] [id number] [address] [place] [address] Sep, [facility] [place] [address] [id number] [place] [id number] Sep, [facility] [place] [address] [id number] [place] [id number] Sep, [facility] [place] [address] [id number] [place] [id number] Sep, [facility] [address] [facility] [id number] [address] [place] [address] Sep, [facility] [address] [facility] [id number] [address] [place] [address] Aug, [facility] [place] [address] [id number] [place] [id number] Aug, [facility] [address] [facility] [id number] [address] [place] [address] Aug, [facility] [place] [address] [id number] [place] [id number] Jul, [facility] [place] [address] [id number] [place] [id number] Jul, [facility] [place] [address] [id number] [place] [id number] Jun, [facility] [place] [address] [id number] [place] [id number] May, [facility] [place] [address] [id number] [place] [id number] Feb, [facility] [place] [address] [id number] [place] [id number] Feb, [facility] [place] [address] [id number] [place] [id number] Feb, [facility] [place] [address] [id number] [place] [id number] Dec, [facility] [address] [id number] [place] [id number] Dec, [facility] [address] [id number] [address] [place] [address] Oct, [facility] [address] [id number] [address] [place] [address] Sep, [facility] [address] [id number] [address] [place] [phone] Sep, [facility] [address] [id number] [address] [place] [id number] Sep, [facility] [address] [id number] [address] [place] [id number] Sep, [facility] [address] [id number] [address] [place] [id number] March, [facility] [address] [id number] [address] [place] [id number] Sep, [facility] [address] [id number] [address] [place] [id number] Jul, [facility] [address] [id number] [address] [place] [id number] May, [facility] [address] [id number] [address] [place] [id number] Jan, [facility] [address] [id number] [address] [place] [id number] Sep, [facility] [address] [id number] [address] [place] [id number] Aug, IMMUNIZATIONS No Known Immunizations SOCIAL HISTORY Never Assessed REASON FOR VISIT [facility] PLAN OF CARE VITAL SIGNS MEDICATIONS No [...]
--- OUTSIDE RECORDS SUMMARY | 2020-05-31 11:48 | XMS REPORT ---
Author Author Jeane Camacho Doctor Organization [facility] Address Unknown Phone Unavailable Care Team Providers Care Seafood Specialist Name Role Phone Migration, Doctor Unavailable Unavailable PROBLEMS Type Condition ICD9-CM Code [id number] Code Onset Dates Condition S tatus SNOMED Code Problem Depression F32.9 Active 79630349 Problem Anxiety F41.9 Active 02208313 Problem Environmental allergies Z91.09 Active 303085436 Problem Atherosclerotic 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 Active 237869777 Problem Lumbago with sciatica, unspecified side M54.40 Active 600643346 Problem Chronic pain syndrome G89.4 Active 301462175 Problem Hypercholesterolemia with hypertriglyceridemia E78 .2 Active 365492514 Problem Major depressive disorder, recurrent sev ere without psychotic features F33.2 Active 87049967 Problem Dysthymia (or depressive neurosis) F34.1 Active 92273122 Problem Cigarette nicotine dependence without complication F17.210 Active 69925662 Problem Alcohol use disorder, moderate, in sustained remission F10.21 Active 70498679 Problem Cannabis use disorder, mild, abuse F12.10 Active 90239083 Problem Elevated blood pressure I10 Active 63352702 ALLERGIES No Information ENCOUNTERS Encounter Location Date Diagnosis [facility] [address] [id number] [address] [place] [id number] Dec, Major depressive disorder, r ecurrent severe without psychotic features F33.2 ; Chronic pain syndrome G89.4 and Encounter for immunization Z23 [facility] [address] [id number] [place] [id number] Aug, Elevated blood pressure I10 [facility] [address] [facility] [id number] [address] [place] [address] May, Hypercholesterolemia with hy pertriglyceridemia E78.2 and Atherosclerotic heart disease of [place] coronary artery without angina pectoris I25.10 [facility] [address] [facility] [id number] [address] [place] [phone] March, Lumbago with sciatica, unspe cified side M54.40 ; Environmental allergies Z91.09 ; Hypercholesterolemia with hypertriglyceridemia E78.2 and Atherosclerotic heart disease of [place] coronary artery without angina pectoris I25.10 [facility] [address] [id number] [address] [place] [id number] 14 Dec, 2017 Severe episode of recurrent major depressive disorder, without psychotic features F33.2 ; Alcohol use disorder, moderate, in sustained remission F10.21 and Cannabis use disorder, mild, abuse F12.10 [facility] [address] [facility] [id number] [address] [place] [id number] 12 Dec, 2017 Severe episode of recurrent major depressive disorder, without psychotic features F33.2 [place] [address] [facility] [id number] [address] [place] [phone] Nov, [place] [address] [id number] [address] [place] [id number] 08 Nov, 2017 Atherosclerotic 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 ; Hypercholesterolemia with hypertriglyceridemia E78.2 ; Depression F32.9 and Cigarette nicotine dependence without complication F17.210 [place] [address] [facility] [id number] [address] [place] [phone] Oct, [facility] [address] [id number] [address] [place] [id number] Jul, [facility] [address] [id number] [address] [place] [id number] Jun, [facility] [address] [id number] [address] [place] [address] Apr, Pain in thoracic spine M54.6 and Lumbago with sciatica, unspecified side M54.40 [facility] [address] [id number] [address] [place] [address] March, [place] [address] [facility] [id number] [address] [place] [phone] March, Depression F32.9 [place] [address] [facility] [id number] [address] [place] [address] March, Anxiety F41.9 ; Depression F 32.9 ; Atherosclerotic heart disease of [place] coronary artery without angina pectoris I25.10 ; Hypercholesterolemia with hypertriglyceridemia E78.2 ; Right wrist tendonitis M77.8 and Environmental allergies Z91.09 [facility] [address] [id number] [place] [facility] [id number] Dec, [place] [address] [id number] [address] [place] [address] Nov, Iron deficiency anemia, unsp ecified iron deficiency anemia type D50.9 ; Anxiety F41.9 ; Dysthymia (or depressive neurosis) F34.1 and Hypercholesterolemia with hypertriglyceridemia E78.2 [place] [id number] [address] [place] [phone] Oct, [place] [address] [address] Oct, [address] [address] Oct, Dysthymia (or depressive sherice rosis) F34.1 ; Atherosclerotic heart disease of [place] coronary artery without angina pectoris I25.10 ; Coronary atherosclerosis due to lipid rich plaque I25.83 ; Hypercholesterolemia with hypertriglyceridemia E78.2 ; Iron deficiency anemia, unspecified iron deficiency anemia type D50.9 ; Hospital discharge follow-up Z09 ; History of PID Z87.42 ; Environmental allergies Z91.09 and Dysuria R30.0 [place] [address] [id number] [address] [place] [phone] Sep, [place] [address] [address] Sep, [place] [address] [id number] [address] [place] [address] Aug, Dysthymia F34.1 and Anxiety F41.9 [place] [address] [place] [address] [id number] [address] [place] [address] March, Coronary artery disease invo lving [place] coronary artery, angina presence unspecified, unspecified whether [place] or transplanted heart I25.10 ; Bipolar 1 disorder, depressed F31.9 ; Anxiety F41.9 and Dysthymia F34.1 [place] [address] [id number] 04 Feb, 2016 Depression F32.9 and Stomach pain R10.9 [place] [address] [address] Jan, Hyperlipidemia 272.4 [place] [address] [address] 17 Dec, 2015 [place] [address] [address] 11 Dec, 2015 Major depressive disorder, r ecurrent episode, unspecified 296.30 ; Anxiety F41.9 ; Grief F43.20 and Dysthymia F34.1 [place] [address] [address] Dec, Anxiety F41.9 and Grief F43. 20 [place] [address] [address] Oct, Insomnia, unspecified G47.00 and Anxiety F41.9 [place] [address] [address] Oct, Dysthymia F34.1 ; Right shou lder pain M25.511 ; Sciatica, right M54.31 and Iron deficiency anemia, unspecified iron deficiency anemia type D50.9 [place] [address] [address] Sep, [place] [address] [address] Sep, Grief F43.20 [place] [address] [id number] [address] [place] [address] Sep, [facility] [address] [address] Sep, [facility] [id number] [place] [address] Sep, Hyperlipidemia E78.5 ; CAD ( coronary artery disease) I25.10 and HTN (hypertension) I10 [facility] [address] [address] Aug, Allergic rhinitis, unspecifi ed allergic rhinitis type J30.9 [facility] [address] [address] Aug, Left-sided low back pain wit h right-sided sciatica M54.41 and Hyperlipidemia, unspecified hyperlipidemia E78.5 [facility] [address] [address] Aug, Neck pain M54.2 and Low back pain M54.5 [facility] [address] [address] Jun, [facility] [address] [address] Jun, [facility] [address] [address] Jun, CAD (coronary artery disease ) 414.00 ; Hyperlipidemia 272.4 and Anemia 285.9 [facility] [address] [address] Feb, [facility] [id number] [place] [address] Feb, [facility] [address] [id number] [address] [place] [address] Jan, [facility] [id number] [place] [address] Jan, [facility] [address] [id number] [address] [place] [address], [place] [address] Jan, [facility] [address] [id number] [address] [place] [address], [place] [address] Jan, [facility] [address] [id number] [address] [place] [address], [place] [address] Dec, 2014 [facility] [address] [id number] [address] [place] [address], [place] [address] Dec, 2014 [facility] [address] [id number] [address] [place] [address], [place] [address] Dec, 2014 [facility] [address] [id number] [address] [place] [address], [place] [address] Dec, 2014 [facility] [address] [id number] [address] [place] [address], [place] [address] Dec, 2014 [facility] [address] [id number] [address] [place] [address], [place] [address] Dec, 2014 [facility] [address] [id number] [address] [place] [address], [place] [address] Dec, 2014 [facility] [address] [id number] [address] [place] [address], [place] [address] Dec, [facility] [address] [id number] [address] [place] [address], [place] [address] Dec, 2014 [facility] [address] [id number] [address] [place] [address], [place] [address] Dec, 2014 [facility] [address] [id number] [address] [place] [address], [place] [address] Dec, 2014 [facility] [address] [id number] [address] [place] [address] Dec, 2014 [facility] [address] [id number] [address] [place] [phone] Nov, [facility] [address] [id number] [address] [place] [address], [place] [address] Nov, [facility] [address] [id number] [address] [place] [address], [place] [address] Nov, [facility] [address] [id number] [address] [place] [address], [place] [address] Nov, [facility] [address] [id number] [address] [place] [address], [place] [address] Oct, [facility] [address] [id number] [address] [place] [address], [place] [address] Oct, [facility] [address] [id number] [address] [place] [address], [place] [address] Sep, [facility] [address] [id number] [address] [place] [address], [place] [address] Sep, [facility] [address] [id number] [address] [place] [address], [place] [address] Aug, [facility] [address] [id number] [address] [place] [address], [place] [address] Aug, [facility] [address] [id number] [address] [place] [address], [place] [address] 30 Jul, 2014 [facility] [address] [id number] [address] [place] [address], [place] [address] 30 Jul, 2014 [facility] [address] [id number] [address] [place] [address], [place] [address] 16 Jul, 2013 [facility] [address] [id number] [address] [place] [address], [place] [address] 16 Jul, 2014 [facility] [address] [id number] [address] [place] [address], [place] [address] 15 Jul, 2014 [facility] [address] [id number] [address] [place] [address], [place] [address] 12 Jul, 2014 [facility] [address] [id number] [address] [place] [address], [place] [address] Jul, [facility] [address] [id number] [facility] [address] Jul, [facility] [address] [id number] [facility] [address] Jul, [facility] [address] [id number] [facility] [address] Jul, [facility] [address] [id number] [address] [place] [address], [place] [address] Jul, [facility] [address] [id number] [address] [place] [address], [place] [address] Jul, [facility] [address] [id number] [address] [place] [address], [place] [address] Jul, [facility] [address] [id number] [address] [place] [address], [place] [address] Jun, [facility] [address] [id number] [address] [place] [address], [place] [address] Jun, [facility] [address] [id number] [address] [place] [address], [place] [address] Jun, [facility] [address] [id number] [address] [place] [address], [place] [address] Jun, [facility] [address] [id number] [address] [place] [address], [place] [address] Jun, [facility] [address] [id number] [address] [place] [address], [place] [address] Jun, [facility] [address] [id number] [address] [place] [address], [place] [address] Jun, [facility] [address] [id number] [address] [place] [address], [place] [address] Jun, [facility] [address] [id number] [address] [place] [address], [place] [address] May, [facility] [address] [id number] [facility] [address] May, [facility] [address] [id number] [facility] [address] Apr, [facility] [address] [id number] [facility] [address] Apr, [facility] [address] [id number] [address] [place] [address], [place] [address] Apr, [facility] [address] [id number] [facility] [address] Apr, [facility] [address] [id number] [address] [place] [address], [place] [address] March, [facility] [address] [id number] [address] [place] [address], [place] [address] March, [facility] [address] [id number] [address] [place] [address], [place] [address] March, [facility] [address] [id number] [address] [place] [address], [place] [address] March, [facility] [address] [id number] [address] [place] [address], [place] [address] March, [facility] [address] [id number] [address] [place] [address], [place] [address] March, [facility] [address] [id number] [address] [place] [address], [place] [address] March, [facility] [address] [id number] [address] [place] [address], [place] [address] March, [facility] [address] [id number] [address] [place] [address], [place] [address] March, [facility] [address] [id number] [address] [place] [address], [place] [address] March, [facility] [address] [id number] [address] [place] [address], [place] [address] March, [facility] [address] [id number] [address] [place] [address], [place] [address] Nov, [facility] [address] [id number] [address] [place] [address], [place] [address] Nov, [facility] [address] [id number] [address] [place] [address], [place] [address] Nov, [facility] [address] [id number] [address] [place] [address], [place] [address] Oct, [facility] [address] [id number] [address] [place] [address], [place] [address] Oct, [facility] [address] [id number] [address] [place] [address], [place] [address] Aug, [facility] [address] [id number] [address] [place] [address], [place] [address] Aug, [facility] [address] [id number] [place] [id number] Jun, [facility] [place] [address] [id number] [place] [id number] Apr, [facility] [address] [id number] [address] [place] [address], [place] [address] Apr, [facility] [address] [id number] [address] [place] [address], [place] [address] Apr, [facility] [place] [address] [id number] [place] [id number] March, [facility] [place] [address] [id number] [place] [id number] Feb, [facility] [place] [address] [id number] [place] [id number] Jan, [facility] [address] [id number] [address] [place] [address], [place] [address] Jan, [facility] [address] [id number] [address] [place] [address], [place] [address] Jan, [facility] [address] [id number] [address] [place] [address], [place] [address] Jan, [facility] [place] [address] [id number] [place] [id number] Dec, [facility] [place] [address] [id number] [place] [id number] Dec, [facility] [address] [id number] [address] [place] [address], [place] [address] Dec, [facility] [address] [id number] [address] [place] [address], [place] [address] Dec, [facility] [address] [id number] [address] [place] [address], [place] [address] Dec, [facility] [address] [facility] [id number] [address] [place] [address], [place] [address] Nov, [facility] [address] [id number] [address] [place] [address], [place] [address] Nov, [facility] [place] [address] [id number] [place] [id number] Nov, [facility] [address] [id number] [address] [place] [address], [place] [address] Nov, [facility] [place] [address] [id number] [place] [id number] Nov, [facility] [place] [address] [id number] [place] [id number] Nov, [facility] [place] [address] [id number] [place] [id number] Oct, [facility] [place] [address] [id number] [place] [id number] Oct, [facility] [address] [id number] [address] [place] [address], [place] [address] Oct, [facility] [address] [id number] [address] [place] [address], [place] [address] Oct, [facility] [address] [id number] [address] [place] [address] Oct, [facility] [address] [facility] [id number] [address] [place] [address] Sep, [facility] [address] [facility] [id number] [address] [place] [address] Sep, [facility] [place] [address] [id number] [place] [id number] Sep, [facility] [place] [address] [id number] [place] [id number] Sep, [facility] [place] [address] [id number] [place] [id number] Sep, [facility] [address] [facility] [id number] [address] [place] [address] Sep, [facility] [address] [facility] [id number] [address] [place] [address] Aug, [facility] [place] [address] [id number] [place] [id number] Aug, [facility] [address] [facility] [id number] [address] [place] [address] Aug, [facility] [place] [address] [id number] [place] [id number] Jul, [facility] [address] [id number] [place] [id number] Jul, [facility] [place] [address] [id number] [place] [id number] Jun, [facility] [place] [address] [id number] [place] [id number] May, [facility] [place] [address] [id number] [place] [id number] Feb, [facility] [place] [address] [id number] [place] [id number] Feb, [facility] [place] [address] [id number] [place] [id number] Feb, [facility] [place] [address] [id number] [place] [id number] Dec, [facility] [address] [id number] [place] [id number] Dec, [facility] [address] [id number] [place] [id number] Oct, [facility] [address] [id number] [address] [place] [id number] Sep, [facility] [address] [id number] [place] [id number] Sep, [facility] [address] [id number] [address] [place] [id number] Sep, [facility] [address] [id number] [address] [place] [id number] Sep, [facility] [address] [id number] [place] [id number] March, [facility] [address] [id number] [address] [place] [phone] Sep, [facility] [address] [id number] [address] [place] [id number] Jul, [facility] [address] [id number] [address] [place] [id number] May, [facility] [address] [id number] [address] [place] [phone] Jan, [facility] [address] [id number] [address] [place] [id number] Sep, [facility] [address] [id number] [address] [place] [id number] Aug, IMMUNIZATIONS No Known Immunizations SOCIAL HISTORY Never Assessed REASON FOR VISIT [facility] [place] VITAL SIGNS MEDICATIONS No [...] stents in heart Hospitalization History Pelvic Inflammatory Disease-[facility] 09/22 Hospitalization History 2 inpatient psychiatric treatments, suicide attempts
--- OUTSIDE RECORDS SUMMARY | 2020-05-31 11:49 | XMS REPORT ---
Author Author Jeane Hawk Organization [facility] Address [address] [place] [address] Care Team Providers Care Special Warfare Operator Name Role Phone Kenn GUTIERREZ Unavailable PROBLEMS Type Condition ICD9-CM Code [id number] Code Onset Dates Condition S tatus SNOMED Code Problem Atherosclerotic heart diseas e of [place] coronary artery without angina pectoris I25.10 Active 555711133 Problem Dysthymia (or depressive neurosis) F34.1 Active 95372031 Problem Hypercholesterolemia with hypertriglyceridemia E78 .2 Active 706234098 Problem Cannabis use disorder, mild, abuse F12.10 Active 41318234 Problem Alcohol use disorder, moderate, in sustained remission F10.21 Active 26939198 Problem Lumbago with sciatica, unspecified side M54.40 Active 698821522 Problem Right wrist tendonitis M77.8 Active [id number] Problem Severe episode of recurrent major depressive disorder, without psychotic features F33.2 Active 88652357 Problem Cigarette nicotine dependence without complication F17.210 Active 95396554 Problem Grief F43.20 Active 45296244 Problem Depression F32.9 Active 66021680 Problem Iron deficiency anemia, unspecified iron deficiency an emia type D50.9 Active 58019055 Problem Environmental allergies Z91.09 Active 859250057 Problem Anxiety F41.9 Active 33819113 Problem Coronary atherosclerosis due to lipid rich plaque I25.83 Active [id number] ALLERGIES Substance Reaction Event Type Date Status Medrol twitching of arms and legs Drug Allergy Apr, A ctive ENCOUNTERS Encounter Location Date Diagnosis [facility] [address] [facility] [id number] [address] [place] [address] Feb, [facility] [address] [facility] [id number] [address] [place] [address] 14 Dec, 2017 Severe episode of recurrent major depressive disorder, without psychotic features F33.2 ; Alcohol use disorder, moderate, in sustained remission F10.21 and Cannabis use disorder, mild, abuse F12.10 [place] [address] [address] 12 Dec, 2017 Severe episode of recurrent major depressive disorder, without psychotic features F33.2 [place] [address] [address] Nov, [place] [address] [address] Nov, Atherosclerotic heart diseas e of [place] coronary artery without angina pectoris I25.10 ; Hypercholesterolemia with hypertriglyceridemia E78.2 ; Depression F32.9 and Cigarette nicotine dependence without complication F17.210 [place] [address] [address] 04 Oct, [address] [address] 05 Jul, 2017 [place] [address] [address] Jun, [address] [address] 28 Apr, 2017 Pain in thoracic spine M54.6 and Lumbago with sciatica, unspecified side M54.40 [place] [id number] [place] [address] March, [place] [address] [address] March, Depression F32.[address] [address] March, Anxiety F41.9 ; Depression F 32.9 ; Atherosclerotic heart disease of [place] coronary artery without angina pectoris I25.10 ; Hypercholesterolemia with hypertriglyceridemia E78.2 ; Right wrist tendonitis M77.8 and Environmental allergies Z91.09 [place] [address] [place] [id number] [place] [facility] [id number] Dec, [place] [address] [address] Nov, Iron deficiency anemia, unsp ecified iron deficiency anemia type D50.9 ; Anxiety F41.9 ; Dysthymia (or depressive neurosis) F34.1 and Hypercholesterolemia with hypertriglyceridemia E78.2 [place] [address] [address] Oct, [place] [address] [address] Oct, [place] [address] [address] Oct, Dysthymia (or depressive sherice rosis) F34.1 ; Atherosclerotic heart disease of [place] coronary artery without angina pectoris I25.10 ; Coronary atherosclerosis due to lipid rich plaque I25.83 ; Hypercholesterolemia with hypertriglyceridemia E78.2 ; Iron deficiency anemia, unspecified iron deficiency anemia type D50.9 ; Hospital discharge follow-up Z09 ; History of PID Z87.42 ; Environmental allergies Z91.09 and Dysuria R30.0 [place] [address] [address] Sep, [place] [address] [address] Sep, [place] [address] [address] Aug, Dysthymia F34.1 and Anxiety F41.[address] [address] March, Coronary artery disease invo lving [place] coronary artery, angina presence unspecified, unspecified whether [place] or transplanted heart I25.10 ; Bipolar 1 disorder, depressed F31.9 ; Anxiety F41.9 and Dysthymia F34.1 [place] [address] [address] Feb, Depression F32.9 and Stomach pain R10.9 [place] [address] [address] Jan, Hyperlipidemia 272.4 [place] [address] [address] 17 Dec, 2015 [place] [address] [address] Dec, Major depressive disorder, r ecurrent episode, unspecified 296.30 ; Anxiety F41.9 ; Grief F43.20 and Dysthymia F34.1 [place] [address] [address] Dec, Anxiety F41.9 and Grief F43. 20 [place] [address] [address] Oct, Insomnia, unspecified G47.00 and Anxiety F41.9 [place] [address] [address] Oct, Dysthymia F34.1 ; Right shou lder pain M25.511 ; Sciatica, right M54.31 and Iron deficiency anemia, unspecified iron deficiency anemia type D50.9 [place] [address] [address] Sep, [place] [address] [address] Sep, Grief F43.20 [place] [address] [address] Sep, [place] [address] [address] Sep, [place] [address] [address] Sep, Hyperlipidemia E78.5 ; CAD ( coronary artery disease) I25.10 and HTN (hypertension) I10 [facility] [address] [address] Aug, Allergic rhinitis, unspecifi ed allergic rhinitis type J30.9 [facility] [address] [place] [id number] [place] [address] Aug, Left-sided low back pain wit h right-sided sciatica M54.41 and Hyperlipidemia, unspecified hyperlipidemia E78.5 [facility] [address] [address] Aug, Neck pain M54.2 and Low back pain M54.5 [facility] [address] [address] Jun, [facility] [address] [address] Jun, [facility] [address] [address] Jun, CAD (coronary artery disease ) 414.00 ; Hyperlipidemia 272.4 and Anemia 285.9 [facility] [address] [address] Feb, [facility] [address] [address] Feb, [facility] [address] [address] Jan, [facility] [address] [place] [id number] [place] [address] Jan, [facility] [address] [address] Jan, [facility] [address] [place] [id number] [place] [address] Jan, [facility] [address] [address] Dec, [facility] [address] [id number] [address] [place] [address], [place] [address] Dec, 2014 [facility] [address] [id number] [address] [place] [address], [place] [address] Dec, 2014 [facility] [address] [id number] [address] [place] [address], [place] [address] Dec, 2014 [facility] [address] [id number] [address] [place] [address], [place] [address] Dec, 2014 [facility] [address] [id number] [address] [place] [address], [place] [address] Dec, 2014 [facility] [address] [id number] [address] [place] [address], [place] [address] Dec, 2014 [facility] [address] [id number] [address] [place] [address], [place] [address] Dec, 2014 [facility] [address] [id number] [address] [place] [address], [place] [address] Dec, [facility] [address] [id number] [address] [place] [address], [place] [address] Dec, [facility] [address] [id number] [address] [place] [address], [place] [address] Dec, [facility] [address] [id number] [address] [place] [address], [place] [address] Dec, [facility] [address] [id number] [address] [place] [address], [place] [address] Nov, [facility] [address] [id number] [address] [place] [address], [place] [address] Nov, [facility] [address] [id number] [address] [place] [address], [place] [address] Nov, [facility] [address] [id number] [address] [place] [address], [place] [address] Nov, [facility] [address] [id number] [address] [place] [address], [place] [address] Oct, [facility] [address] [id number] [address] [place] [address], [place] [address] Oct, [facility] [address] [id number] [address] [place] [address], [place] [address] Sep, [facility] [address] [id number] [address] [place] [address], [place] [address] Sep, [facility] [address] [id number] [address] [place] [address], [place] [address] Aug, [facility] [address] [id number] [address] [place] [address], [place] [address] Aug, [facility] [address] [id number] [address] [place] [address], [place] [address] 30 Jul, 2014 [facility] [address] [id number] [address] [place] [address], [place] [address] 30 Jul, 2014 [facility] [address] [id number] [address] [place] [address], [place] [address] 16 Jul, 2014 [facility] [address] [id number] [address] [place] [address], [place] [address] 16 Jul, 2014 [facility] [address] [id number] [address] [place] [address], [place] [address] 15 Jul, 2014 [facility] [address] [id number] [address] [place] [address], [place] [address] 12 Jul, 2014 [facility] [address] [id number] [address] [place] [address], [place] [address] 12 Jul, 2014 [facility] [address] [id number] [address] [place] [address], [place] [address] 11 Jul, 2014 [facility] [address] [id number] [address] [place] [address], [place] [address] 11 Jul, 2013 [facility] [address] [id number] [address] [place] [address], [place] [address] Jul, [facility] [address] [id number] [facility] [address] Jul, [facility] [address] [id number] [facility] [address] Jul, [facility] [address] [id number] [address] [place] [address], [place] [address] Jul, [facility] [address] [id number] [address] [place] [address], [place] [address] Jun, [facility] [address] [id number] [address] [place] [address], [place] [address] Jun, [facility] [address] [id number] [address] [place] [address], [place] [address] Jun, [facility] [address] [id number] [address] [place] [address], [place] [address] Jun, [facility] [address] [id number] [address] [place] [address], [place] [address] Jun, [facility] [address] [id number] [address] [place] [address], [place] [address] Jun, [facility] [address] [id number] [address] [place] [address], [place] [address] Jun, [facility] [address] [id number] [address] [place] [address], [place] [address] Jun, [facility] [address] [id number] [address] [place] [address], [place] [address] May, [facility] [address] [id number] [address] [place] [address], [place] [address] May, [facility] [address] [id number] [address] [place] [address], [place] [address] Apr, [facility] [address] [id number] [address] [place] [address], [place] [address] Apr, [facility] [address] [id number] [address] [place] [address], [place] [address] Apr, [facility] [address] [id number] [address] [place] [address], [place] [address] Apr, [facility] [address] [id number] [address] [place] [address], [place] [address] March, [facility] [address] [id number] [address] [place] [address], [place] [address] March, [facility] [address] [id number] [address] [place] [address], [place] [address] March, [facility] [address] [id number] [address] [place] [address], [place] [address] March, [facility] [address] [id number] [address] [place] [address], [place] [address] March, [facility] [address] [id number] [address] [place] [address], [place] [address] March, [facility] [address] [id number] [address] [place] [address], [place] [address] March, [facility] [address] [id number] [address] [place] [address], [place] [address] March, [facility] [address] [id number] [address] [place] [address], [place] [address] March, [facility] [address] [id number] [address] [place] [address], [place] [address] March, [facility] [address] [id number] [address] [place] [address], [place] [address] March, [facility] [address] [id number] [address] [place] [address], [place] [address] Nov, [facility] [address] [id number] [address] [place] [address], [place] [address] Nov, [facility] [address] [id number] [address] [place] [address], [place] [address] Nov, [facility] [address] [id number] [address] [place] [address], [place] [address] Oct, [facility] [address] [id number] [address] [place] [address], [place] [address] Oct, [facility] [address] [id number] [address] [place] [address], [place] [address] Aug, [facility] [address] [id number] [address] [place] [address], [place] [address] Aug, [facility] [place] [address] [id number] [place] [id number] Jun, [facility] [place] [address] [id number] [place] [id number] Apr, [facility] [address] [id number] [address] [place] [address], [place] [address] Apr, [facility] [address] [id number] [address] [place] [address], [place] [address] Apr, [facility] [place] [address] [id number] [place] [id number] March, [facility] [place] [address] [id number] [place] [id number] Feb, [facility] [place] [address] [id number] [place] [id number] Jan, [facility] [address] [id number] [address] [place] [address], [place] [address] Jan, [facility] [address] [id number] [address] [place] [address] Jan, [facility] [address] [id number] [address] [place] [address], [place] [address] Jan, [facility] [address] [id number] [place] [id number] Dec, [facility] [address] [id number] [place] [id number] Dec, [facility] [address] [id number] [address] [place] [address] 18 Dec, 2012 [facility] [address] [id number] [address] [place] [address], [place] [address] Dec, [facility] [address] [id number] [address] [place] [address] Dec, [facility] [address] [id number] [address] [place] [address] Nov, [facility] [address] [id number] [address] [place] [address] Nov, [facility] [place] [address] [id number] [place] [id number] Nov, [facility] [address] [facility] [id number] [address] [place] [address], [place] [address] Nov, [facility] [place] [address] [id number] [place] [id number] Nov, [facility] [place] [address] [id number] [place] [id number] Nov, [facility] [place] [address] [id number] [place] [id number] Oct, [facility] [place] [address] [id number] [place] [id number] Oct, [facility] [address] [id number] [address] [place] [address], [place] [address] Oct, [facility] [address] [id number] [address] [place] [address] Oct, [facility] [address] [id number] [address] [place] [address] Oct, [facility] [address] [id number] [address] [place] [address] Sep, [facility] [address] [id number] [address] [place] [address] Sep, [facility] [place] [address] [id number] [place] [id number] Sep, [facility] [place] [address] [id number] [place] [id number] Sep, [facility] [address] [id number] [place] [id number] Sep, [facility] [address] [facility] [id number] [address] [place] [address] Sep, [facility] [address] [facility] [id number] [address] [place] [address] Aug, [facility] [place] [address] [id number] [place] [id number] Aug, [facility] [address] [facility] [id number] [address] [place] [address] Aug, [facility] [place] [address] [id number] [place] [id number] Jul, [facility] [place] [address] [id number] [place] [id number] Jul, [facility] [place] [address] [id number] [place] [id number] Jun, [facility] [place] [address] [id number] [place] [id number] May, [facility] [place] [address] [id number] [place] [id number] Feb, [facility] [place] [address] [id number] [place] [id number] Feb, [facility] [place] [address] [id number] [place] [id number] Feb, [facility] [place] [address] [id number] [place] [id number] Dec, [facility] [place] [address] [id number] [place] [id number] Dec, [facility] [address] [facility] [id number] [address] [place] [phone] Oct, [facility] [address] [facility] [id number] [address] [place] [address] Sep, [facility] [address] [id number] [address] [place] [phone] 10 Sep, 2011 [facility] [address] [id number] [address] [place] [address] Sep, [facility] [address] [id number] [address] [place] [address] Sep, [facility] [address] [id number] [address] [place] [address] March, [facility] [address] [id number] [address] [place] [address] Sep, [facility] [address] [id number] [address] [place] [id number] 16 Jul, 2010 [facility] [address] [id number] [address] [place] [address] May, [facility] [address] [id number] [address] [place] [phone] Jan, [facility] [address] [id number] [address] [place] [phone] Sep, [facility] [address] [id number] [address] [place] [id number] Aug, IMMUNIZATIONS No Known Immunizations SOCIAL HISTORY Never Assessed REASON FOR VISIT Pain (acute) neck, pt reports DDD in back and neck. Pain is getting worse. Ligia Rausch PLAN OF CARE Activity Details Follow Up 3 Months Reason: VITAL SIGNS Height 61.0 in 2017-05-19 Weight 109.3 lbs 2017-05-19 Temperature 97.9 degrees Fahrenheit 2017-05-19 Heart Rate 84 bpm 2017-05-19 Respiratory Rate 22 2017-05-19 BMI 20.65 kg/m2 2017-05-19 Blood pressure systolic 124 mmHg 2017-05-19 Blood pressure diastolic 70 mmHg 2017-05-19 MEDICATIONS Medication Instructions Dosage Frequency Start Date End Date Duration S tatus Diclofenac Potassium 50 mg Orally Twice a day 1 tablet 12h Apr, 2 017 Active Atorvastatin Calcium 10 mg Orally Once a day 1 tablet 24h 14 c, 2016 30 day(s) Active Toprol XL 25 mg Orally Once a day take 1 tablet (25 mg ) by oral route once daily 24h March, Active Viibryd 40 mg Orally Once a day 1 tablet with food 24h March, 90 days Active RESULTS Name Result Date Reference Range Xray : Spine, Thoracic 2 views (IN HOUSE) 05-19 Xray : Spine, Lumbar 2-3 views (IN HOUSE) 05-19 PROCEDURES Procedure Date Ordered Result Body Site X-RAY EXAM OF LOWER SPINE May 19, 2017 X-RAY EXAM OF THORACIC SPINE May 19, 2017 INSTRUCTIONS MEDICATIONS ADMINISTERED No Known Medications MEDICAL [...]
--- OUTSIDE RECORDS SUMMARY | 2020-05-31 11:49 | XMS REPORT ---
Author Author Jeane JONES Organization [facility] Address [address] [place] [address] Care Team Providers Care Billing Machine Operator Name Role Phone BIBIANA JONES Unavailable PROBLEMS Type Condition ICD9-CM Code [id number] Code Onset Dates Condition S tatus SNOMED Code Problem Depression F32.9 Active 37073423 Problem Hypercholesterolemia with hypertriglyceridemia E78 .2 Active 760461003 Problem Dysthymia (or depressive neurosis) F34.1 Active 98213690 Problem Anxiety F41.9 Active 32282331 Problem Cannabis use disorder, mild, abuse F12.10 Active 59766015 Problem Alcohol use disorder, moderate, in sustained remission F10.21 Active 20344507 Problem Atherosclerotic heart diseas e of [place] coronary artery without angina pectoris I25.10 Active 576571665 Problem Environmental allergies Z91.09 Active 105560885 Problem Cigarette nicotine dependence without complication F17.210 Active 94022138 Problem Lumbago with sciatica, unspecified side M54.40 Active 575689427 ALLERGIES Substance Reaction Event Type Date Status Medrol twitching of arms and legs Drug Allergy March, A ctive ENCOUNTERS Encounter Location Date Diagnosis [facility] [address] [facility] [id number] [address] [place] [address] 17 May, 2018 Hypercholesterolemia with hy pertriglyceridemia E78.2 and Atherosclerotic heart disease of [place] coronary artery without angina pectoris I25.10 [facility] [address] [facility] [id number] [address] [place] [address] March, Lumbago with sciatica, unspe cified side M54.40 ; Environmental allergies Z91.09 ; Hypercholesterolemia with hypertriglyceridemia E78.2 and Atherosclerotic heart disease of [place] coronary artery without angina pectoris I25.10 [facility] [address] [facility] [id number] [address] [place] [address] 14 Dec, 2017 Severe episode of recurrent major depressive disorder, without psychotic features F33.2 ; Alcohol use disorder, moderate, in sustained remission F10.21 and Cannabis use disorder, mild, abuse F12.10 [place] [address] [place] [id number] [place] [address] 12 Dec, 2017 Severe episode of recurrent major depressive disorder, without psychotic features F33.2 [place] [address] [address] Nov, [place] [address] [place] [id number] [place] [address] Nov, Atherosclerotic heart diseas e of [place] coronary artery without angina pectoris I25.10 ; Hypercholesterolemia with hypertriglyceridemia E78.2 ; Depression F32.9 and Cigarette nicotine dependence without complication F17.210 [place] [address] [address] Oct, [place] [address] [place] [id number] [address] [place] [address] Jul, [place] [address] [place] [id number] [place] [address] Jun, [place] [address] [place] [id number] [place] [address] Apr, Pain in thoracic spine M54.6 and Lumbago with sciatica, unspecified side M54.40 [place] [address] [place] [id number] [address] [place] [address] March, [place] [address] [place] [id number] [place] [address] March, Depression F32.9 [place] [id number] [place] [address] March, Anxiety F41.9 ; Depression F 32.9 ; Atherosclerotic heart disease of [place] coronary artery without angina pectoris I25.10 ; Hypercholesterolemia with hypertriglyceridemia E78.2 ; Right wrist tendonitis M77.8 and Environmental allergies Z91.09 [place] [address] [facility] [id number] CLARACheri S [id number] Dec, [address] [address] Nov, Iron deficiency anemia, unsp ecified iron deficiency anemia type D50.9 ; Anxiety F41.9 ; Dysthymia (or depressive neurosis) F34.1 and Hypercholesterolemia with hypertriglyceridemia E78.[address] [address] Oct, [address] [address] Oct, [address] [address] Oct, Dysthymia (or depressive sherice rosis) F34.1 ; Atherosclerotic heart disease of [place] coronary artery without angina pectoris I25.10 ; Coronary atherosclerosis due to lipid rich plaque I25.83 ; Hypercholesterolemia with hypertriglyceridemia E78.2 ; Iron deficiency anemia, unspecified iron deficiency anemia type D50.9 ; Hospital discharge follow-up Z09 ; History of PID Z87.42 ; Environmental allergies Z91.09 and Dysuria R30.[address] [address] Sep, [address] [address] Sep, [address] [address] Aug, Dysthymia F34.1 and Anxiety F41.[address] [address] March, Coronary artery disease invo lving [place] coronary artery, angina presence unspecified, unspecified whether citizen [place] or transplanted heart I25.10 ; Bipolar 1 disorder, depressed F31.9 ; Anxiety F41.9 and Dysthymia F34.1 [place] [address] [address] [place] [address] 04 Feb, 2016 Depression F32.9 and Stomach pain R10.9 [place] [address] [address] Jan, Hyperlipidemia 272.4 [place] [address] [address] 17 Dec, 2015 [place] [address] [address] Dec, Major depressive disorder, r ecurrent episode, unspecified 296.30 ; Anxiety F41.9 ; Grief F43.20 and Dysthymia F34.1 [place] [address] [address] Dec, Anxiety F41.9 and Grief F43. 20 [place] [address] [address] Oct, Insomnia, unspecified G47.00 and Anxiety F41.9 [place] [address] [address] Oct, Dysthymia F34.1 ; Right shou lder pain M25.511 ; Sciatica, right M54.31 and Iron deficiency anemia, unspecified iron deficiency anemia type D50.9 [place] [address] [address] Sep, [place] [address] [address] Sep, Grief F43.20 [place] [address] [address] Sep, [place] [address] [address] Sep, [place] [address] [address] Sep, Hyperlipidemia E78.5 ; CAD ( coronary artery disease) I25.10 and HTN (hypertension) I10 [facility] [address] [address] Aug, Allergic rhinitis, unspecifi ed allergic rhinitis type J30.9 [facility] [address] [place] [id number] [place] [address] Aug, Left-sided low back pain wit h right-sided sciatica M54.41 and Hyperlipidemia, unspecified hyperlipidemia E78.5 [facility] [address] [place] [id number] [place] [address] Aug, Neck pain M54.2 and Low back pain M54.5 [facility] [address] [place] [id number] [place] [address] Jun, [facility] [address] [address] Jun, [facility] [address] [address] Jun, CAD (coronary artery disease ) 414.00 ; Hyperlipidemia 272.4 and Anemia 285.9 [facility] [address] [address] Feb, [facility] [address] [address] Feb, [facility] [address] [place] [id number] [place] [address] Jan, [facility] [address] [place] [id number] [place] [address] Jan, [facility] [address] [address] Jan, [facility] [address] [place] [id number] [place] [address] Jan, [facility] [address] [address] Dec, 2014 [facility] [address] [id number] [address] [place] [address], [place] [address] Dec, 2014 [facility] [address] [id number] [address] [place] [address], [place] [address] Dec, 2014 [facility] [address] [id number] [address] [place] [address], [place] [address] Dec, 2014 [facility] [place] [facility] [address] [id number] [address] [place] [address], [place] [address] Dec, 2014 [facility] [address] [id number] [address] [place] [address], [place] [address] Dec, 2014 [facility] [address] [id number] [address] [place] [address], [place] [address] Dec, 2014 [facility] [address] [id number] [address] [place] [address], [place] [address] Dec, 2014 [facility] [address] [id number] [address] [place] [address], [place] [address] Dec, [facility] [address] [id number] [address] [place] [address], [place] [address] Dec, [facility] [address] [id number] [address] [place] [address], [place] [address] Dec, [facility] [place] [facility] [address] [id number] [address] [place] [address], [place] [address] Dec, [facility] [address] [id number] [address] [place] [address], [place] [address] Nov, [facility] [place] [facility] [address] [id number] [address] [place] [address], [place] [address] Nov, [facility] [place] [facility] [address] [id number] [address] [place] [address] Nov, [facility] [place] [facility] [address] [id number] [address] [place] [address] Nov, [facility] [address] [id number] [address] [place] [address], [place] [address] Oct, [facility] [place] [facility] [address] [id number] [address] [place] [address], [place] [address] Oct, [facility] [place] [facility] [address] [id number] [address] [place] [address], [place] [address] Sep, [facility] [place] [facility] [address] [id number] [address] [place] [address], [place] [address] Sep, [facility] [place] [facility] [address] [id number] [address] [place] [address], [place] [address] Aug, [facility] [place] [facility] [address] [id number] [address] [place] [address], [place] [address] Aug, [facility] [place] [facility] [address] [id number] [address] [place] [address], [place] [address] 30 Jul, 2014 [facility] [place] [facility] [address] [id number] [address] [place] [address], [place] [address] 30 Jul, 2013 [facility] [place] [facility] [address] [id number] [address] [place] [address], [place] [address] 16 Jul, 2014 [facility] [place] [facility] [address] [id number] [address] [place] [address], [place] [address] 16 Jul, 2013 [facility] [place] [facility] [address] [id number] [address] [place] [address], [place] [address] 15 Jul, 2013 [facility] [place] [facility] [address] [id number] [address] [place] [address], [place] [address] 12 Jul, 2013 [facility] [place] [facility] [address] [id number] [address] [place] [address], [place] [address] 12 Jul, 2013 [facility] [place] [facility] [address] [id number] [address] [place] [address], [place] [address] 11 Jul, 2013 [facility] [place] [facility] [address] [id number] [address] [place] [address], [place] [address] 11 Jul, 2013 [facility] [place] [facility] [address] [id number] [facility] [place] [address] Jul, [facility] [address] [id number] [facility] [place] [address] Jul, [facility] [place] [facility] [address] [id number] [facility] [place] [address] Jul, [facility] [address] [id number] [address] [place] [address], [place] [address] Jul, [facility] [place] [facility] [address] [id number] [address] [place] [address], [place] [address] Jun, [facility] [address] [id number] [address] [place] [address], [place] [address] Jun, [facility] [address] [id number] [address] [place] [address], [place] [address] Jun, [facility] [address] [id number] [address] [place] [address], [place] [address] Jun, [facility] [address] [id number] [address] [place] [address], [place] [address] Jun, [facility] [address] [id number] [address] [place] [address], [place] [address] Jun, [facility] [address] [id number] [address] [place] [address], [place] [address] Jun, [facility] [place] [facility] [address] [id number] [address] [place] [address], [place] [address] Jun, [facility] [place] [facility] [address] [id number] [address] [place] [address], [place] [address] May, [facility] [place] [facility] [address] [id number] [address] [place] [address], [place] [address] May, [facility] [place] [facility] [address] [id number] [address] [place] [address], [place] [address] Apr, [facility] [place] [facility] [address] [id number] [address] [place] [address], [place] [address] Apr, [facility] [place] [facility] [address] [id number] [address] [place] [address], [place] [address] Apr, [facility] [address] [id number] [address] [place] [address], [place] [address] Apr, [facility] [address] [id number] [address] [place] [address], [place] [address] March, [facility] [address] [id number] [address] [place] [address], [place] [address] March, [facility] [address] [id number] [address] [place] [address], [place] [address] March, [facility] [address] [id number] [address] [place] [address], [place] [address] March, [facility] [address] [id number] [address] [place] [address], [place] [address] March, [facility] [address] [id number] [address] [place] [address], [place] [address] March, [facility] [address] [id number] [address] [place] [address], [place] [address] March, [facility] [address] [id number] [address] [place] [address], [place] [address] March, [facility] [address] [id number] [address] [place] [address], [place] [address] March, [facility] [address] [id number] [address] [place] [address], [place] [address] March, [facility] [address] [id number] [address] [place] [address], [place] [address] March, [facility] [address] [id number] [address] [place] [address], [place] [address] Nov, [facility] [address] [id number] [address] [place] [address], [place] [address] Nov, [facility] [address] [id number] [place] [address] Nov, [facility] [address] [id number] [address] [place] [address] Oct, [facility] [address] [id number] [address] [place] [address] Oct, [facility] [address] [facility] [id number] [address] [place] [address] Aug, [facility] [address] [id number] [address] [place] [address] Aug, [facility] [place] [address] [id number] [place] [id number] Jun, [facility] [place] [address] [id number] [place] [id number] Apr, [facility] [address] [facility] [id number] [address] [place] [address] Apr, [facility] [address] [id number] [address] [place] [address] Apr, [facility] [place] [address] [id number] [place] [id number] March, [facility] [place] [address] [id number] [place] [id number] Feb, [facility] [place] [address] [id number] [place] [id number] Jan, [facility] [address] [facility] [id number] [address] [place] [address] Jan, [facility] [address] [id number] [address] [place] [address] Jan, [facility] [place] [facility] [address] [facility] [id number] [address] [place] [address] Jan, [facility] [place] [address] [id number] [place] [id number] Dec, [facility] [place] [address] [id number] [place] [id number] Dec, [facility] [place] [facility] [address] [id number] [address] [place] [address], [place] [address] 18 Dec, 2012 [facility] [address] [id number] [address] [place] [address], [place] [address] Dec, [facility] [address] [id number] [address] [place] [address], [place] [address] Dec, [facility] [address] [id number] [address] [place] [address], [place] [address] Nov, [facility] [address] [id number] [address] [place] [address], [place] [address] Nov, [facility] [place] [address] [id number] [place] [id number] Nov, [facility] [address] [id number] [address] [place] [address], [place] [address] Nov, [facility] [place] [address] [id number] [place] [id number] Nov, [facility] [place] [address] [id number] [place] [id number] Nov, [facility] [place] [address] [id number] [place] [id number] Oct, [facility] [place] [address] [id number] [place] [id number] Oct, [facility] [address] [id number] [address] [place] [address], [place] [address] Oct, [facility] [address] [id number] [address] [place] [address], [place] [address] Oct, [facility] [address] [id number] [address] [place] [address], [place] [address] Oct, [facility] [address] [id number] [address] [place] [address], [place] [address] Sep, [facility] [address] [id number] [address] [place] [address], [place] [address] Sep, [facility] [place] [address] [id number] [place] [id number] Sep, [facility] [place] [address] [id number] [place] [id number] Sep, [facility] [place] [address] [id number] [place] [id number] Sep, [facility] [address] [facility] [id number] [address] [place] [address] Sep, [facility] [address] [facility] [id number] [address] [place] [address] Aug, [facility] [place] [address] [id number] [place] [id number] Aug, [facility] [address] [facility] [id number] [address] [place] [address] Aug, [facility] [place] [address] [id number] [place] [id number] Jul, [facility] [place] [address] [id number] [place] [id number] Jul, [facility] [place] [address] [id number] [place] [id number] Jun, [facility] [place] [address] [id number] [place] [id number] May, [facility] [place] [address] [id number] [place] [id number] Feb, [facility] [place] [address] [id number] [place] [id number] Feb, [facility] [place] [address] [id number] [place] [id number] Feb, [facility] [place] [address] [id number] [place] [id number] Dec, [facility] [place] [address] [id number] [place] [id number] Dec, [facility] [address] [facility] [id number] [address] [place] [address] Oct, [facility] [address] [facility] [id number] [address] [place] [address] 11 Sep, 2011 [facility] [address] [id number] [address] [place] [address] Sep, [facility] [address] [id number] [address] [place] [address] Sep, [facility] [address] [id number] [address] [place] [address] Sep, [facility] [address] [id number] [address] [place] [address] March, [facility] [address] [id number] [address] [place] [address] Sep, [facility] [address] [id number] [address] [place] [address] 16 Jul, 2010 [facility] [address] [id number] [address] [place] [address] May, [facility] [address] [id number] [address] [place] [phone] Jan, [facility] [address] [id number] [address] [place] [phone] Sep, [facility] [address] [id number] [address] [place] [phone] Aug, IMMUNIZATIONS Vaccine Route Administration Date Status DEPO MEDROL 80 MG/ML IM Intramuscular April 01, 2018 Administer ed SOCIAL HISTORY Never Assessed REASON FOR VISIT Pain management (chronic) WB-MA, Anxiety , Patient wants shots for flu, pnuemoni a, cortizone and allergy PLAN OF CARE Activity Details Follow Up 4 Months Reason: VITAL SIGNS Height 61.0 in 2018-04-01 Weight 109 lbs 2018-04-01 Temperature 97.9 degrees Fahrenheit 2018-04-01 Heart Rate 66 bpm 2018-04-01 Respiratory Rate 20 2018-04-01 BMI 20.59 kg/m2 2018-04-01 Blood pressure systolic 104 mmHg 2018-04-01 Blood pressure diastolic 62 mmHg 2018-04-01 MEDICATIONS Medication Instructions Dosage Frequency Start Date End Date Duration S faye Toprol XL 25 mg Orally Once a day take 1 tablet (25 mg ) by oral route once daily 24h March, Active Aspirin 81 mg take 1 tablet (81 mg) by oral route once daily Nov, Active Abilify 5 MG Orally Once a day 1 tablet 24h 30 Active Diclofenac Sodium 75 MG Orally Twice a day 1 tablet with food or mi lk 12h March, Jun, 30 day(s) Active Atorvastatin Calcium 10 mg Orally Once a day 1 tablet 24h 2015 90 days Active Diclofenac Potassium 50 mg Orally Twice a day 1 tablet 12h Apr, 017 Active Viibryd 40 mg Orally Once a day 1 tablet with food 24h March, Active RESULTS No Results PROCEDURES Procedure Date Ordered Result Body Site LAB NOT BILLED BY [facility] April 01, 2018 DEPO MEDROL 80 MG/ML April 01, 2018 THER/PROPH/DIAG INJ, SC/IM April 01, 2018 VENIPUNCT, ROUTINE* April 01, 2018 INSTRUCTIONS MEDICATIONS ADMINISTERED No Known Medications MEDICAL [...]
--- OUTSIDE RECORDS SUMMARY | 2020-05-31 11:49 | XMS REPORT ---
Author Author Jeane YORK [facility] Address [address] [place] [address] Care Team Providers Care Service Planner Name Role Phone CHELA BRYAN Unavailable PROBLEMS Type Condition ICD9-CM Code [id number] Code Onset Dates Condition S tatus SNOMED Code Problem Environmental allergies Z91.09 Active 297930013 Problem Hypercholesterolemia with hypertriglyceridemia E78 .2 Active 421345828 Problem Dysthymia (or depressive neurosis) F34.1 Active 44003083 Problem Anxiety F41.9 Active 57305909 Problem Depression F32.9 Active 96976429 Problem Elevated blood pressure I10 Active 78169709 Problem Cannabis use disorder, mild, abuse F12.10 Active 53763417 Problem Lumbago with sciatica, unspecified side M54.40 Active 719183778 Problem Atherosclerotic 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 Active 637267942 Problem Alcohol use disorder, moderate, in sustained remission F10.21 Active 37422800 Problem Cigarette nicotine dependence without complication F17.210 Active 04985227 ALLERGIES Substance Reaction Event Type Date Status Medrol twitching of arms and legs Drug Allergy Aug, A ctive ENCOUNTERS Encounter Location Date Diagnosis [facility] [address] [facility] [id number] [place] [address] [id number] Aug, Elevated blood pressure I10 [facility], [place] [address] [facility] [id number] [address] [place] [address] May, Hypercholesterolemia with hy pertriglyceridemia E78.2 and Atherosclerotic heart disease of [place] coronary artery without angina pectoris I25.10 [facility] [place] [address] [facility] [id number] [address] [place] [address] March, Lumbago with sciatica, unspe cified side M54.40 ; Environmental allergies Z91.09 ; Hypercholesterolemia with hypertriglyceridemia E78.2 and Atherosclerotic heart disease of [place] coronary artery without angina pectoris I25.10 [facility] [place] [address] [id number] [address] [place] [address] 14 Dec, 2017 Severe episode of recurrent major depressive disorder, without psychotic features F33.2 ; Alcohol use disorder, moderate, in sustained remission F10.21 and Cannabis use disorder, mild, abuse F12.10 [facility] [place] [address] [id number] [address] [place] [id number] 12 Dec, 2017 Severe episode of recurrent major depressive disorder, without psychotic features F33.2 [facility] [place] [address] [id number] [address] [place] [address] Nov, [facility] [place] [address] [id number] [address] [place] [address] 08 Nov, 2017 Atherosclerotic 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 ; Hypercholesterolemia with hypertriglyceridemia E78.2 ; Depression F32.9 and Cigarette nicotine dependence without complication F17.210 [facility] [place] [address] [id number] [address] [place] [address] Oct, [facility] [place] [address] [id number] [address] [place] [address] Jul, [facility] [place] [address] [id number] [address] [place] [id number] Jun, [facility] [place] [address] [id number] [address] [place] [address] Apr, Pain in thoracic spine M54.6 and Lumbago with sciatica, unspecified side M54.40 [facility] [place] [address] [id number] [address] [place] [address] March, [facility] [place] [address] [id number] [address] [place] [address] March, Depression F32.9 [facility] [place] [address] [id number] [address] [place] [address] March, Anxiety F41.9 ; Depression F 32.9 ; Atherosclerotic heart disease of [place] coronary artery without angina pectoris I25.10 ; Hypercholesterolemia with hypertriglyceridemia E78.2 ; Right wrist tendonitis M77.8 and Environmental allergies Z91.09 [facility] [address] [id number] [place] [id number] Dec, [facility], [place] [address] [facility] [id number] [address] [place] [address] Nov, Iron deficiency anemia, unsp ecified iron deficiency anemia type D50.9 ; Anxiety F41.9 ; Dysthymia (or depressive neurosis) F34.1 and Hypercholesterolemia with hypertriglyceridemia E78.2 [place] [address] [facility] [id number] [address] [place] [address] Oct, [facility], [place] [address] [facility] [id number] [address] [place] [address] Oct, [place] [address] [place] [id number] [place] [address] Oct, Dysthymia (or depressive sherice rosis) F34.1 ; Atherosclerotic heart disease of [place] coronary artery without angina pectoris I25.10 ; Coronary atherosclerosis due to lipid rich plaque I25.83 ; Hypercholesterolemia with hypertriglyceridemia E78.2 ; Iron deficiency anemia, unspecified iron deficiency anemia type D50.9 ; Hospital discharge follow-up Z09 ; History of PID Z87.42 ; Environmental allergies Z91.09 and Dysuria R30.0 [place] [address] [facility] [id number] [address] [place] [address] Sep, [facility] [place] [address] [facility] [id number] [address] [place] [address] Sep, [place] [address] [place] [id number] [address] [place] [address] Aug, Dysthymia F34.1 and Anxiety F41.9 [place] [address] [facility] [id number] [address] [place] [address] March, Coronary artery disease invo lving [place] coronary artery, angina presence unspecified, unspecified whether [place] or transplanted heart I25.10 ; Bipolar 1 disorder, depressed F31.9 ; Anxiety F41.9 and Dysthymia F34.1 [place] [address] [address] 04 Feb, 2016 Depression F32.9 and Stomach pain R10.9 [place] [address] [address] Jan, Hyperlipidemia 272.4 [place] [address] [address] 17 Dec, 2015 [place] [address] [address] 11 Dec, 2015 Major depressive disorder, r ecurrent episode, unspecified 296.30 ; Anxiety F41.9 ; Grief F43.20 and Dysthymia F34.1 [place] [address] [address] Dec, Anxiety F41.9 and Grief F43. 20 [place] [address] [address] Oct, Insomnia, unspecified G47.00 and Anxiety F41.9 [place] [address] [address] Oct, Dysthymia F34.1 ; Right shou lder pain M25.511 ; Sciatica, right M54.31 and Iron deficiency anemia, unspecified iron deficiency anemia type D50.9 [place] [address] [address] Sep, [place] [address] [address] Sep, Grief F43.20 [place] [address] [address] Sep, [place] [address] [address] Sep, [facility] [place] [address] [place] [id number] [place] [address] Sep, Hyperlipidemia E78.5 ; CAD ( coronary artery disease) I25.10 and HTN (hypertension) I10 [facility] [place] [address] [place] [id number] [place] [address] Aug, Allergic rhinitis, unspecifi ed allergic rhinitis type J30.9 [facility] [place] [address] [place] [id number] [place] [address] Aug, Left-sided low back pain wit h right-sided sciatica M54.41 and Hyperlipidemia, unspecified hyperlipidemia E78.5 [facility] [place] [address] [address] Aug, Neck pain M54.2 and Low back pain M54.5 [facility] [place] [address] [address] Jun, [facility] [place] [address] [place] [id number] [place] [address] Jun, [facility], [place] [address] [address] Jun, CAD (coronary artery disease ) 414.00 ; Hyperlipidemia 272.4 and Anemia 285.9 [facility] [place] [address] [place] [id number] [address] [place] [address] Feb, [facility], [place] [address] [place] [id number] [place] [address] Feb, [facility], [place] [address] [place] [id number] [address] [place] [address] Jan, [facility], [place] [address] [place] [id number] [place] [address] Jan, [facility], [place] [address] [place] [id number] [address] [place] [address] Jan, [facility] [address] [id number] [address] [place] [address], [place] [address] Jan, [facility] [address] [id number] [address] [place] [address], [place] [address] Dec, 2014 [facility] [address] [id number] [address] [place] [address], [place] [address] Dec, 2014 [facility] [address] [id number] [address] [place] [address], [place] [address] Dec, 2014 [facility] [address] [id number] [address] [place] [address], [place] [address] Dec, 2014 [facility] [address] [id number] [address] [place] [address], [place] [address] Dec, 2014 [facility] [address] [id number] [address] [place] [address], [place] [address] Dec, [facility] [address] [id number] [address] [place] [address] Dec, [facility] [address] [id number] [address] [place] [address], [place] [address] Dec, [facility] [address] [id number] [address] [place] [address] Dec, [facility] [address] [id number] [address] [place] [address] Dec, [facility] [address] [id number] [address] [place] [address] Dec, [facility] [address] [id number] [address] [place] [address] Dec, [facility] [address] [id number] [address] [place] [address] Nov, [facility] [address] [id number] [address] [place] [address] Nov, [facility] [address] [id number] [address] [place] [address] Nov, [facility] [address] [id number] [address] [place] [address], [place] [address] Nov, [facility] [address] [id number] [address] [place] [address], [place] [address] Oct, [facility] [address] [id number] [address] [place] [address], [place] [address] Oct, [facility] [address] [id number] [address] [place] [address], [place] [address] Sep, [facility] [address] [id number] [address] [place] [address], [place] [address] Sep, [facility] [address] [id number] [address] [place] [address], [place] [address] Aug, [facility] [address] [id number] [address] [place] [address], [place] [address] Aug, [facility] [address] [id number] [address] [place] [address], [place] [address] 30 Jul, 2014 [facility] [address] [id number] [address] [place] [address], [place] [address] 30 Jul, 2014 [facility] [address] [id number] [address] [place] [address], [place] [address] 16 Jul, 2014 [facility] [address] [id number] [address] [place] [address], [place] [address] 16 Jul, 2013 [facility] [address] [id number] [address] [place] [address], [place] [address] 15 Jul, 2013 [facility] [address] [id number] [address] [place] [address], [place] [address] 12 Jul, 2014 [facility] [address] [id number] [address] [place] [address], [place] [address] 12 Jul, 2013 [facility] [address] [id number] [address] [place] [address], [place] [address] 11 Jul, 2013 [facility] [address] [id number] [facility] [place] [address] 11 Jul, 2014 [facility] [address] [id number] [facility] [place] [address] Jul, [facility] [address] [id number] [facility] [place] [address] Jul, [facility] [address] [id number] [facility] [place] [address] Jul, [facility] [address] [id number] [facility] [place] [address] Jul, [facility] [address] [id number] [facility] [place] [address] Jun, [facility] [address] [id number] [facility] [place] [address] Jun, [facility] [address] [id number] [address] [place] [address], [place] [address] Jun, [facility] [address] [id number] [address] [place] [address], [place] [address] Jun, [facility] [address] [id number] [address] [place] [address], [place] [address] Jun, [facility] [address] [id number] [address] [place] [address], [place] [address] Jun, [facility] [address] [id number] [address] [place] [address], [place] [address] Jun, [facility] [address] [id number] [address] [place] [address], [place] [address] Jun, [facility] [address] [id number] [address] [place] [address], [place] [address] May, [facility] [address] [id number] [facility] [place] [address] May, [facility] [address] [id number] [address] [place] [address], [place] [address] Apr, [facility] [address] [id number] [facility] [place] [address] Apr, [facility] [address] [id number] [facility] [place] [address] Apr, [facility] [address] [id number] [facility] [place] [address] Apr, [facility] [address] [id number] [address] [place] [address], [place] [address] March, [facility] [address] [id number] [address] [place] [address], [place] [address] March, [facility] [address] [id number] [address] [place] [address], [place] [address] March, [facility] [address] [id number] [address] [place] [address], [place] [address] March, [facility] [address] [id number] [address] [place] [address], [place] [address] March, [facility] [address] [id number] [address] [place] [address], [place] [address] March, [facility] [address] [id number] [address] [place] [address], [place] [address] March, [facility] [address] [id number] [address] [place] [address], [place] [address] March, [facility] [address] [id number] [address] [place] [address], [place] [address] March, [facility] [address] [id number] [address] [place] [address], [place] [address] March, [facility] [address] [id number] [address] [place] [address], [place] [address] March, [facility] [address] [id number] [address] [place] [address], [place] [address] Nov, [facility] [address] [id number] [address] [place] [address] 16 Nov, 2013 [facility] [address] [id number] [address] [place] [address] Nov, [facility] [address] [id number] [address] [place] [address] Oct, [facility] [address] [id number] [address] [place] [address] Oct, [facility] [address] [id number] [address] [place] [address] Aug, [facility] [address] [id number] [address] [place] [address] Aug, [facility] [address] [id number] [place] [id number] Jun, [facility] [address] [id number] [place] [id number] Apr, [facility] [address] [id number] [address] [place] [address] Apr, [facility] [address] [id number] [address] [place] [address] Apr, [facility] [address] [id number] [place] [id number] March, [facility] [address] [id number] [place] [id number] Feb, [facility] [address] [id number] [place] [id number] Jan, [facility] [address] [id number] [address] [place] [address], [place] [address] Jan, [facility] [address] [id number] [address] [place] [address] Jan, [facility] [address] [id number] [address] [place] [address] Jan, [facility] [place] [address] [id number] [place] [id number] Dec, [facility] [place] [address] [id number] [place] [id number] Dec, [facility] [address] [id number] [address] [place] [address] Dec, [facility] [address] [facility] [id number] [address] [place] [address], [place] [address] Dec, [facility] [address] [facility] [id number] [address] [place] [address] Dec, [facility] [address] [facility] [id number] [address] [place] [address], [place] [address] Nov, [facility] [address] [facility] [id number] [address] [place] [address] Nov, [facility] [place] [address] [id number] [place] [id number] Nov, [facility] [address] [id number] [address] [place] [address] Nov, [facility] [place] [address] [id number] [place] [id number] Nov, [facility] [place] [address] [id number] [place] [id number] Nov, [facility] [place] [address] [id number] [place] [id number] Oct, [facility] [place] [address] [id number] [place] [id number] Oct, [facility] [address] [id number] [address] [place] [address] Oct, [facility] [address] [facility] [id number] [address] [place] [address] Oct, [facility] [address] [facility] [id number] [address] [place] [address] Oct, [facility] [address] [facility] [id number] [address] [place] [address] Sep, [facility] [address] [id number] [address] [address] Sep, [facility] [place] [address] [id number] [place] [id number] Sep, [facility] [place] [address] [id number] [place] [id number] Sep, [facility] [place] [address] [id number] [place] [id number] Sep, [facility] [address] [facility] [id number] [address] [place] [address] Sep, [facility] [address] [facility] [id number] [address] [place] [address] Aug, [facility] [place] [address] [id number] [place] [id number] Aug, [facility] [address] [facility] [id number] [address] [place] [address] Aug, [facility] [place] [address] [id number] [place] [id number] Jul, [facility] [place] [address] [id number] [place] [id number] Jul, [facility] [place] [address] [id number] [place] [id number] Jun, [facility] [place] [address] [id number] [place] [id number] May, [facility] [place] [address] [id number] [place] [id number] Feb, [facility] [place] [address] [id number] [place] [id number] Feb, [facility] [place] [address] [id number] [place] [id number] Feb, [facility] [place] [address] [id number] [place] [id number] Dec, [facility] [place] [address] [id number] [place] [id number] Dec, [facility] [place] [address] [facility] [id number] [address] [place] [id number] Oct, [facility] [place] [address] [id number] [address] [place] [phone] Sep, [facility] [place] [address] [id number] [address] [place] [id number] Sep, [facility] [place] [address] [id number] [address] [place] [id number] Sep, [facility], [place] [address] [id number] [address] [place] [id number] Sep, [facility], [place] [address] [id number] [address] [place] [id number] March, [facility] [place] [address] [id number] [address] [place] [phone] Sep, [facility], [place] [address] [id number] [address] [place] [phone] Jul, [facility], [place] [address] [id number] [address] [place] [phone] May, [facility], [place] [address] [id number] [address] [place] [id number] Jan, [facility], [place] [address] [id number] [address] [place] [id number] Sep, [facility], [place] [address] [id number] [address] [place] [phone] Aug, IMMUNIZATIONS No Known Immunizations SOCIAL HISTORY Never Assessed REASON FOR VISIT high BP, needs med refilled Zach CAGLE, has been out of BP med for a month PLAN OF CARE Activity Details Follow Up 4 Weeks, prn Reason:Follow u p with PCP VITAL SIGNS Height 61.0 in 2018-09-16 Weight 110.8 lbs 2018-09-16 Temperature 98.4 degrees Fahrenheit 2018-09-16 Heart Rate 96 bpm 2018-09-16 Respiratory Rate 18 2018-09-16 BMI 20.93 kg/m2 2018-09-16 Blood pressure systolic 116 mmHg 2018-09-16 Blood pressure diastolic 78 mmHg 2018-09-16 MEDICATIONS Medication Instructions Dosage Frequency Start Date End Date Duration S faye Toprol XL 25 mg Orally Once a day take 1 tablet (25 mg ) by oral route once daily 24h March, 30 days Active Aspirin 81 mg take 1 tablet (81 mg) by oral route once daily Nov, Active RESULTS No Results PROCEDURES No Known [...]
--- OUTSIDE RECORDS SUMMARY | 2020-05-31 11:49 | XMS REPORT ---
Author Author Jeane JONES Organization [facility] Address [address] [place] [address] Care Team Providers Care Marketing Support Specialist Name Role Phone BIBIANA JONES Unavailable PROBLEMS Type Condition ICD9-CM Code RQH04-OS Code Onset Dates Condition S tatus SNOMED Code Problem Depression F32.9 Active 58059179 Problem Hypercholesterolemia with hypertriglyceridemia E78 .2 Active 899411337 Problem Dysthymia (or depressive neurosis) F34.1 Active 20697929 Problem Anxiety F41.9 Active 41637699 Problem Cannabis use disorder, mild, abuse F12.10 Active 08412544 Problem Alcohol use disorder, moderate, in sustained remission F10.21 Active 34443759 Problem Atherosclerotic heart diseas e of [place] coronary artery without angina pectoris I25.10 Active 791987320 Problem Environmental allergies Z91.09 Active 115506048 Problem Cigarette nicotine dependence without complication F17.210 Active 92682403 Problem Lumbago with sciatica, unspecified side M54.40 Active 400878236 ALLERGIES No Information ENCOUNTERS Encounter Location Date Diagnosis [place] [id number] [place] [id number] [address] [place] [address] 17 May, 2018 Hypercholesterolemia with hy pertriglyceridemia E78.2 and Atherosclerotic heart disease of [place] cross coronary artery without angina pectoris I25.10 [facility] [address] [facility] [id number] [address] [place] [address] 11 Mar, 2018 Lumbago with sciatica, unspe cified side M54.40 ; Environmental allergies Z91.09 ; Hypercholesterolemia with hypertriglyceridemia E78.2 and Atherosclerotic heart disease of [place] cross coronary artery without angina pectoris I25.10 [facility] [address] [facility] [id number] [address] [place] [id number] 14 Dec, 2017 Severe episode of recurrent major depressive disorder, without psychotic features F33.2 ; Alcohol use disorder, moderate, in sustained remission F10.21 and Cannabis use disorder, mild, abuse F12.10 [place] [address] [address] 12 Dec, 2017 Severe episode of recurrent major depressive disorder, without psychotic features F33.2 [place] [address] [place] [id number] [place] [address] Nov, [place] [address] [address] Nov, Atherosclerotic heart diseas e of [place] cross coronary artery without angina pectoris I25.10 ; Hypercholesterolemia with hypertriglyceridemia E78.2 ; Depression F32.9 and Cigarette nicotine dependence without complication F17.210 [place] [address] [address] Oct, [place] [address] [address] Jul, [place] [address] [address] Jun, [place] [address] [address] Apr, Pain in thoracic spine M54.6 and Lumbago with sciatica, unspecified side M54.40 [place] [address] [place] [id number] [address] [place] [address] March, [place] [address] [address] March, Depression F32.9 [place] [address] [place] [id number] [address] [place] [address] March, Anxiety F41.9 ; Depression F 32.9 ; Atherosclerotic heart disease of [place] coronary artery without angina pectoris I25.10 ; Hypercholesterolemia with hypertriglyceridemia E78.2 ; Right wrist tendonitis M77.8 and Environmental allergies Z91.09 [facility] [address] [id number] [place] [id number] Dec, [place] [address] [place] [id number] [address] [place] [address] Nov, Iron deficiency anemia, unsp ecified iron deficiency anemia type D50.9 ; Anxiety F41.9 ; Dysthymia (or depressive neurosis) F34.1 and Hypercholesterolemia with hypertriglyceridemia E78.2 [place] [address] [address] Oct, [place] [address] [address] Oct, [place] [address] [address] Oct, Dysthymia (or depressive sherice rosis) F34.1 ; Atherosclerotic heart disease of [place] coronary artery without angina pectoris I25.10 ; Coronary atherosclerosis due to lipid rich plaque I25.83 ; Hypercholesterolemia with hypertriglyceridemia E78.2 ; Iron deficiency anemia, unspecified iron deficiency anemia type D50.9 ; Hospital discharge follow-up Z09 ; History of PID Z87.42 ; Environmental allergies Z91.09 and Dysuria R30.0 [place] [address] [address] Sep, [place] [address] [address] Sep, [place] [address] [address] Aug, Dysthymia F34.1 and Anxiety F41.9 [place] [address] [address] March, Coronary artery disease invo lving holy cross coronary artery, angina presence unspecified, unspecified whether holy cross or transplanted heart I25.10 ; Bipolar 1 disorder, depressed F31.9 ; Anxiety F41.9 and Dysthymia F34.1 [place] [address] [address] Feb, Depression F32.9 and Stomach pain R10.9 [place] [address] [address] Jan, Hyperlipidemia 272.4 [place] [address] [address] 17 Dec, 2015 [place] [address] [address] 11 Dec, 2015 Major depressive disorder, r ecurrent episode, unspecified 296.30 ; Anxiety F41.9 ; Grief F43.20 and Dysthymia F34.1 [place] [address] [address] Dec, Anxiety F41.9 and Grief F43. 20 [place] [address] [address] Oct, Insomnia, unspecified G47.00 and Anxiety F41.9 [place] [address] [address] Oct, Dysthymia F34.1 ; Right shou lder pain M25.511 ; Sciatica, right M54.31 and Iron deficiency anemia, unspecified iron deficiency anemia type D50.9 [place] [address] [address] Sep, [place] [address] [address] Sep, Grief F43.20 [place] [address] [address] Sep, [place] [address] [address] 05 Sep, 2015 [place] [address] [address] Sep, Hyperlipidemia E78.5 ; CAD ( coronary artery disease) I25.10 and HTN (hypertension) I10 [facility] [address] [id number] [address] [place] [address] Aug, Allergic rhinitis, unspecifi ed allergic rhinitis type J30.9 [facility] [address] [place] [id number] [place] [address] Aug, Left-sided low back pain wit h right-sided sciatica M54.41 and Hyperlipidemia, unspecified hyperlipidemia E78.5 [facility] [address] [address] Aug, Neck pain M54.2 and Low back pain M54.5 [facility] [address] [address] Jun, [facility] [address] [place] [id number] [place] [address] Jun, [facility] [address] [address] Jun, CAD (coronary artery disease ) 414.00 ; Hyperlipidemia 272.4 and Anemia 285.9 [facility] [address] [address] Feb, [facility] [address] [place] [id number] [place] [address] Feb, [facility] [address] [place] [id number] [address] [place] [address] Jan, [facility] [address] [place] [id number] [place] [address] Jan, [facility] [address] [place] [id number] [address] [place] [address] Jan, [facility] [address] [place] [id number] [place] [address] Jan, [facility] [address] [place] [id number] [place] [address] Dec, [facility] [address] [id number] [address] [place] [address], [place] [address] Dec, 2014 [facility] [address] [id number] [address] [place] [address], [place] [address] Dec, 2014 [facility] [address] [id number] [address] [place] [address], [place] [address] Dec, 2014 [facility] [address] [id number] [address] [place] [address], [place] [address] Dec, 2014 [facility] [address] [id number] [address] [place] [address], [place] [address] Dec, 2014 [facility] [address] [id number] [address] [place] [address], [place] [address] Dec, 2014 [facility] [address] [id number] [address] [place] [address], [place] [address] Dec, 2014 [facility] [address] [id number] [address] [place] [address], [place] [address] Dec, 2014 [facility] [address] [id number] [address] [place] [address], [place] [address] Dec, [facility] [address] [id number] [address] [place] [address], [place] [address] Dec, [facility] [address] [id number] [address] [place] [address], [place] [address] Dec, [facility] [address] [id number] [address] [place] [address] Nov, [facility] [address] [id number] [address] [place] [address], [place] [address] Nov, [facility] [address] [id number] [address] [place] [address], [place] [address] Nov, [facility] [address] [id number] [address] [place] [address], [place] [address] Nov, [facility] [address] [id number] [address] [place] [address], [place] [address] Oct, [facility] [address] [id number] [address] [place] [address], [place] [address] Oct, [facility] [address] [id number] [address] [place] [address], [place] [address] Sep, [facility] [address] [id number] [address] [place] [address], [place] [address] Sep, [facility] [address] [id number] [address] [place] [address], [place] [address] Aug, [facility] [address] [id number] [address] [place] [address], [place] [address] Aug, [facility] [address] [id number] [address] [place] [address], [place] [address] 30 Jul, 2014 [facility] [address] [id number] [address] [place] [address], [place] [address] 30 Jul, 2014 [facility] [address] [id number] [address] [place] [address], [place] [address] 16 Jul, 2013 [facility] [address] [id number] [address] [place] [address], [place] [address] 16 Jul, 2014 [facility] [address] [id number] [address] [place] [address], [place] [address] 15 Jul, 2014 [facility] [address] [id number] [address] [place] [address], [place] [address] 12 Jul, 2013 [facility] [address] [id number] [address] [place] [address], [place] [address] 12 Jul, 2013 [facility] [address] [id number] [address] [place] [address], [place] [address] 11 Jul, 2014 [facility] [address] [id number] [address] [place] [address], [place] [address] 11 Jul, 2013 [facility] [address] [id number] [address] [place] [address], [place] [address] 10 Jul2013 [facility] [address] [id number] [facility] [address] Jul, [facility] [address] [id number] [facility] [place] [address] Jul, [facility] [address] [id number] [facility] [place] [address] Jul, [facility] [address] [id number] [facility] [place] [address] Jun, [facility] [address] [id number] [address] [place] [address], [place] [address] Jun, [facility] [address] [id number] [address] [place] [address], [place] [address] Jun, [facility] [address] [id number] [address] [place] [address], [place] [address] Jun, [facility] [address] [id number] [address] [place] [address], [place] [address] Jun, [facility] [address] [id number] [address] [place] [address], [place] [address] Jun, [facility] [address] [id number] [address] [place] [address], [place] [address] Jun, [facility] [address] [id number] [address] [place] [address], [place] [address] Jun, [facility] [address] [id number] [address] [place] [address], [place] [address] May, [facility] [address] [id number] [address] [place] [address], [place] [address] May, [facility] [address] [id number] [address] [place] [address], [place] [address] Apr, [facility] [address] [id number] [address] [place] [address], [place] [address] Apr, [facility] [address] [id number] [address] [place] [address], [place] [address] Apr, [facility] [address] [id number] [address] [place] [address], [place] [address] Apr, [facility] [address] [id number] [address] [place] [address], [place] [address] March, [facility] [address] [id number] [address] [place] [address], [place] [address] March, [facility] [address] [id number] [address] [place] [address], [place] [address] March, [facility] [address] [id number] [address] [place] [address], [place] [address] March, [facility] [address] [id number] [address] [place] [address], [place] [address] March, [facility] [address] [id number] [address] [place] [address], [place] [address] March, [facility] [address] [id number] [address] [place] [address], [place] [address] March, [facility] [address] [id number] [address] [place] [address], [place] [address] March, [facility] [address] [id number] [address] [place] [address], [place] [address] March, [facility] [address] [id number] [address] [place] [address], [place] [address] March, [facility] [address] [id number] [address] [place] [address], [place] [address] March, [facility] [address] [id number] [address] [place] [address], [place] [address] Nov, [facility] [address] [id number] [address] [place] [address], [place] [address] Nov, [facility] [address] [id number] [address] [place] [address], [place] [address] Nov, [facility] [address] [id number] [address] [place] [address] Oct, [facility] [address] [id number] [address] [place] [address] Oct, [facility] [address] [facility] [id number] [address] [place] [address] Aug, [facility] [address] [id number] [address] [place] [address] Aug, [facility] [place] [address] [id number] [place] [id number] Jun, [facility] [address] [id number] [place] [id number] Apr, [facility] [address] [facility] [id number] [address] [place] [address], [place] [address] Apr, [facility] [address] [facility] [id number] [address] [place] [address] Apr, [facility] [place] [address] [id number] [place] [id number] March, [facility] [address] [id number] [place] [id number] Feb, [facility] [address] [id number] [place] [id number] Jan, [facility] [address] [facility] [id number] [address] [place] [address] Jan, [facility] [address] [id number] [address] [place] [address] Jan, [facility] [address] [id number] [address] [place] [address] Jan, [facility] [place] [address] [id number] [place] [id number] Dec, [facility] [address] [id number] [place] [id number] Dec, [facility] [address] [id number] [address] [place] [address] Dec, [facility] [address] [id number] [address] [place] [address], [place] [address] Dec, [facility] [address] [facility] [id number] [address] [place] [address] Dec, [facility] [address] [facility] [id number] [address] [place] [address], [place] [address] Nov, [facility] [address] [id number] [address] [place] [address] Nov, [facility] [place] [address] [id number] [place] [id number] Nov, [facility] [address] [id number] [address] [place] [address], [place] [address] Nov, [facility] [place] [address] [id number] [place] [id number] Nov, [facility] [place] [address] [id number] [place] [id number] Nov, [facility] [place] [address] [id number] [place] [id number] Oct, [facility] [place] [address] [id number] [place] [id number] Oct, [facility] [address] [id number] [address] [place] [address] Oct, [facility] [address] [id number] [address] [place] [address] Oct, [facility] [address] [id number] [address] [place] [address] Oct, [facility] [address] [id number] [address] [place] [address] Sep, [facility] [address] [id number] [address] [place] [address] Sep, [facility] [place] [address] [id number] [place] [id number] Sep, [facility] [place] [address] [id number] [place] [id number] Sep, [facility] [place] [address] [id number] [place] [id number] Sep, [facility] [address] [id number] [address] [place] [address] Sep, [facility] [address] [id number] [address] [place] [address] Aug, [facility] [place] [address] [id number] [place] [id number] Aug, [facility] [address] [id number] [address] [place] [address] Aug, [facility] [place] [address] [id number] [place] [id number] Jul, [facility] [address] [id number] [place] [id number] Jul, [facility] [place] [address] [id number] [place] [id number] Jun, [facility] [place] [address] [id number] [place] [id number] May, [facility] [place] [address] [id number] [place] [id number] Feb, [facility] [place] [address] [id number] [place] [id number] Feb, [facility] [place] [address] [id number] [place] [id number] Feb, [facility] [place] [address] [id number] [place] [id number] Dec, [facility] [place] [address] [id number] [place] [id number] Dec, [facility] [address] [facility] [id number] [address] [place] [address] Oct, [facility] [address] [facility] [id number] [address] [place] [address] Sep, [facility] [address] [id number] [address] [place] [address] Sep, [facility] [address] [id number] [address] [place] [address] Sep, [facility] [address] [id number] [address] [place] [address] Sep, [facility] [address] [id number] [address] [place] [address] March, [facility] [address] [id number] [address] [place] [address] Sep, [facility] [address] [id number] [address] [place] [address] Jul, [facility] [address] [id number] [address] [place] [address] May, [facility] [address] [id number] [address] [place] [address] Jan, [facility] [address] [id number] [address] [place] [address] Sep, [facility] [address] [id number] [address] [place] [address] Aug, IMMUNIZATIONS No Known Immunizations SOCIAL HISTORY Never Assessed REASON FOR VISIT refill request PLAN OF CARE VITAL SIGNS MEDICATIONS Medication Instructions Dosage Frequency Start Date End Date Duration S tatus Atorvastatin Calcium 10 mg Orally Once a day 1 tablet 24h 2015 90 days Active Toprol XL 25 mg Orally Once a day take 1 tablet (25 mg ) by oral route once daily 24h March, 90 days Active RESULTS No Results PROCEDURES No Known [...] stents in heart Hospitalization History Pelvic Inflammatory Disease-[facility] 09/22 Hospitalization History 2 inpatient psychiatric treatments, suicide attempts
--- OUTSIDE RECORDS SUMMARY | 2020-05-31 11:50 | XMS REPORT ---
Author Author Jeane BAILEY Organization [facility] Address [address] [place] [address] Care Team Providers Care Supply Chain Associate Name Role Phone GUTIERREZ BAILEY Unavailable PROBLEMS Type Condition ICD9-CM Code QIR59-CK Code Onset Dates Condition S tatus SNOMED Code Problem Grief F43.20 Active 33201877 Problem Hypercholesterolemia with hypertriglyceridemia E78 .2 Active 393485916 Problem Depression F32.9 Active 80683000 Problem Iron deficiency anemia, unspecified iron deficiency an emia type D50.9 Active 89438466 Problem Anxiety F41.9 Active 75886138 Problem Lumbago with sciatica, unspecified side M54.40 Active 382899743 Problem Right wrist tendonitis M77.8 Active [id number] Problem Coronary atherosclerosis due to lipid rich plaque I25.83 Active 232393338541501 Problem Environmental allergies Z91.09 Active 040155720 Problem Dysthymia (or depressive neurosis) F34.1 Active 73353603 Problem Atherosclerotic heart diseas e of [place] coronary artery without angina pectoris I25.10 Active 151948772 ALLERGIES No Information SOCIAL HISTORY Never Assessed PLAN OF CARE VITAL SIGNS MEDICATIONS Unknown Medications RESULTS No Results PROCEDURES No Known procedures IMMUNIZATIONS No Known Immunizations MEDICAL (GENERAL) HISTORY Type Description Date Medical History CAD Stress test 05/[address] [facility] Medical History Hypertension Medical History hyperlipidemia Medical History Degenerative disc disease Surgical History section x4 Surgical History Removal of bone and soft tissue arouond T4, T5 & T6 2010 Surgical History Right arm repair for nerve and muscle Surgical History Stents in heart Surgical History heart cath 03/25/16 Hospitalization History surgeries Hospitalization History stents in heart Hospitalization History Pelvic Inflammatory Disease-[facility] 09/22
--- OUTSIDE RECORDS SUMMARY | 2020-05-31 11:50 | XMS REPORT ---
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 Name Role Phone BIBIANA JONES Unavailable PROBLEMS Type Condition ICD9-CM Code QUU45-BI Code Onset Dates Condition S tatus SNOMED Code Problem Depression F32.9 Active 47585579 Problem Hypercholesterolemia with hypertriglyceridemia E78 .2 Active 261972081 Problem Dysthymia (or depressive neurosis) F34.1 Active 59863742 Problem Anxiety F41.9 Active 96107551 Problem Cannabis use disorder, mild, abuse F12.10 Active 82159230 Problem Alcohol use disorder, moderate, in sustained remission F10.21 Active 12362102 Problem Atherosclerotic heart diseas e of [place] coronary artery without angina pectoris I25.10 Active 556045985 Problem Environmental allergies Z91.09 Active 295853421 Problem Cigarette nicotine dependence without complication F17.210 Active 64568561 Problem Lumbago with sciatica, unspecified side M54.40 Active 614952007 ALLERGIES Substance Reaction Event Type Date Status Medrol twitching of arms and legs Drug Allergy Oct, A ctive ENCOUNTERS Encounter Location Date Diagnosis [place] [id number] [place] [id number] March, Lumbago with sciatica, unspe cified side M54.40 ; Environmental allergies Z91.09 ; Hypercholesterolemia with hypertriglyceridemia E78.2 and Atherosclerotic heart disease of [place] coronary artery without angina pectoris I25.10 [facility] [address] [place] [id number] [place] [id number] 14 Dec, 2017 Severe episode of recurrent major depressive disorder, without psychotic features F33.2 ; Alcohol use disorder, moderate, in sustained remission F10.21 and Cannabis use disorder, mild, abuse F12.10 [facility] [address] [place] [id number] [place] [address] Dec, Severe episode of recurrent major depressive disorder, without psychotic features F33.2 [facility] [address] [place] [place] [id number] [place] [address] Nov, [facility] [address] [facility] [id number] [address] [place] [address] Nov, Atherosclerotic heart diseas e of [place] coronary artery without angina pectoris I25.10 ; Hypercholesterolemia with hypertriglyceridemia E78.2 ; Depression F32.9 and Cigarette nicotine dependence without complication F17.210 [facility] [address] [place] [id number] [place] [address] Oct, [place] [address] [place] [id number] [place] [address] Jul, [place] [address] [place] [id number] [place] [address] Jun, [facility] [address] [place] [id number] [place] [address] Apr, Pain in thoracic spine M54.6 and Lumbago with sciatica, unspecified side M54.40 [place] [address] [place] [id number] [place] [address] March, [place] [address] [place] [id number] [place] [address] March, Depression F32.9 [facility] [address] [place] [id number] [place] [address] March, Anxiety F41.9 ; Depression F 32.9 ; Atherosclerotic heart disease of [place] coronary artery without angina pectoris I25.10 ; Hypercholesterolemia with hypertriglyceridemia E78.2 ; Right wrist tendonitis M77.8 and Environmental allergies Z91.09 [facility] [address] [id number] [place] [id number] Dec, [facility] [address] [place] [id number] [place] [address] Nov, Iron deficiency anemia, unsp ecified iron deficiency anemia type D50.9 ; Anxiety F41.9 ; Dysthymia (or depressive neurosis) F34.1 and Hypercholesterolemia with hypertriglyceridemia E78.2 [place] [address] [address] Oct, [place] [address] [address] Oct, [place] [address] [address] Oct, Dysthymia (or depressive sherice rosis) F34.1 ; Atherosclerotic heart disease of [place] coronary artery without angina pectoris I25.10 ; Coronary atherosclerosis due to lipid rich plaque I25.83 ; Hypercholesterolemia with hypertriglyceridemia E78.2 ; Iron deficiency anemia, unspecified iron deficiency anemia type D50.9 ; Hospital discharge follow-up Z09 ; History of PID Z87.42 ; Environmental allergies Z91.09 and Dysuria R30.[address] [address] Sep, [address] [address] Sep, [address] [address] Aug, Dysthymia F34.1 and Anxiety F41.[address] [address] March, Coronary artery disease invo lving [place] coronary artery, angina presence unspecified, unspecified whether [place] or transplanted heart I25.10 ; Bipolar 1 disorder, depressed F31.9 ; Anxiety F41.9 and Dysthymia F34.[address] [address] 04 Feb, 2016 Depression F32.9 and Stomach pain R10.[address] [address] Jan, Hyperlipidemia 272.4 [place] [address] [address] Dec, [place] [address] [address] Dec, Major depressive disorder, r ecurrent episode, unspecified 296.30 ; Anxiety F41.9 ; Grief F43.20 and Dysthymia F34.1 [place] [address] [address] Dec, Anxiety F41.9 and Grief F43. 20 [place] [address] [address] Oct, Insomnia, unspecified G47.00 and Anxiety F41.[address] [address] Oct, Dysthymia F34.1 ; Right shou lder pain M25.511 ; Sciatica, right M54.31 and Iron deficiency anemia, unspecified iron deficiency anemia type D50.9 [place] [address] [address] Sep, [place] [address] [address] Sep, Grief F43.20 [place] [address] [address] Sep, [place] [address] [address] Sep, [place] [address] [address] Sep, Hyperlipidemia E78.5 ; CAD ( coronary artery disease) I25.10 and HTN (hypertension) I10 [address] [address] Aug, Allergic rhinitis, unspecifi ed allergic rhinitis type J30.9 [facility] [address] [id number] [address] [place] [address] Aug, Left-sided low back pain wit h right-sided sciatica M54.41 and Hyperlipidemia, unspecified hyperlipidemia E78.5 [facility] [address] [facility] [id number] [address] [place] [address] Aug, Neck pain M54.2 and Low back pain M54.5 [facility] [address] [id number] [address] [place] [address] Jun, [facility] [address] [id number] [address] [place] [address] Jun, [facility] [address] [facility] [id number] [address] [place] [address] Jun, CAD (coronary artery disease ) 414.00 ; Hyperlipidemia 272.4 and Anemia 285.9 [facility] [address] [facility] [id number] [address] [place] [address] Feb, [facility] [address] [facility] [id number] [address] [place] [address] Feb, [facility] [address] [place] [id number] [place] [address] Jan, [facility] [address] [facility] [id number] [address] [place] [address] Jan, [facility] [address] [facility] [id number] [address] [place] [phone] Jan, [facility] [address] [facility] [id number] [address] [place] [address] Jan, [facility] [address] [facility] [id number] [address] [place] [address] Dec, [facility] [address] [facility] [id number] [address] [place] [address] Dec, [facility] [address] [id number] [address] [place] [address], [place] [address] Dec, 2014 [facility] [address] [id number] [address] [place] [address], [place] [address] Dec, 2014 [facility] [address] [id number] [address] [place] [address], [place] [address] Dec, 2014 [facility] [address] [id number] [address] [place] [address], [place] [address] Dec, 2014 [facility] [address] [id number] [address] [place] [address], [place] [address] Dec, [facility] [address] [id number] [address] [place] [address], [place] [address] Dec, 2014 [facility] [address] [id number] [address] [place] [address], [place] [address] Dec, [facility] [address] [id number] [address] [place] [address], [place] [address] Dec, [facility] [address] [id number] [address] [place] [address], [place] [address] Dec, [facility] [address] [id number] [address] [place] [address], [place] [address] Dec, [facility] [address] [id number] [address] [place] [address], [place] [address] Nov, [facility] [address] [id number] [address] [place] [address], [place] [address] Nov, [facility] [address] [id number] [address] [place] [address], [place] [address] Nov, [facility] [address] [id number] [address] [place] [address], [place] [address] Nov, [facility] [address] [id number] [address] [place] [address], [place] [address] Oct, [facility] [address] [id number] [address] [place] [phone] Oct, [facility] [address] [id number] [address] [place] [address], [place] [address] Sep, [facility] [address] [id number] [address] [place] [address], [place] [address] Sep, [facility] [address] [id number] [address] [place] [address], [place] [address] Aug, [facility] [address] [id number] [address] [place] [address], [place] [address] Aug, [facility] [address] [id number] [address] [place] [address], [place] [address] 30 Jul, 2014 [facility] [address] [id number] [address] [place] [address], [place] [address] 30 Jul, 2014 [facility] [address] [id number] [address] [place] [address], [place] [address] 16 Jul, 2014 [facility] [address] [id number] [address] [place] [address], [place] [address] 16 Jul, 2014 [facility] [address] [id number] [address] [place] [address], [place] [address] 15 Jul, 2014 [facility] [address] [id number] [address] [place] [address], [place] [address] 12 Jul, 2014 [facility] [address] [id number] [address] [place] [address], [place] [address] 12 Jul, 2014 [facility] [address] [id number] [address] [place] [address], [place] [address] 11 Jul, 2014 [facility] [address] [id number] [address] [place] [address], [place] [address] 11 Jul, 2014 [facility] [address] [id number] [address] [place] [address], [place] [address] 10 Jul, 2014 [facility] [address] [id number] [address] [place] [address], [place] [address] 10 Jul, 2013 [facility] [address] [id number] [facility] [place] [address] Jul, [facility] [address] [id number] [address] [place] [address], [place] [address] Jul, [facility] [address] [id number] [facility] [place] [address] Jun, [facility] [address] [id number] [address] [place] [address], [place] [address] Jun, [facility] [address] [id number] [address] [place] [address], [place] [address] Jun, [facility] [address] [id number] [address] [place] [address], [place] [address] Jun, [facility] [address] [id number] [address] [place] [address], [place] [address] Jun, [facility] [address] [id number] [address] [place] [address], [place] [address] Jun, [facility] [address] [id number] [address] [place] [address], [place] [address] Jun, [facility] [address] [id number] [address] [place] [address], [place] [address] Jun, [facility] [address] [id number] [address] [place] [address], [place] [address] May, [facility] [address] [id number] [address] [place] [address], [place] [address] May, [facility] [address] [id number] [address] [place] [address], [place] [address] Apr, [facility] [address] [id number] [address] [place] [address], [place] [address] Apr, [facility] [address] [id number] [address] [place] [address], [place] [address] Apr, [facility] [address] [id number] [address] [place] [address], [place] [address] Apr, [facility] [address] [id number] [address] [place] [address], [place] [address] March, [facility] [address] [id number] [address] [place] [address], [place] [address] March, [facility] [address] [id number] [address] [place] [address], [place] [address] March, [facility] [address] [id number] [address] [place] [address], [place] [address] March, [facility] [address] [id number] [address] [place] [address], [place] [address] March, [facility] [address] [id number] [address] [place] [address], [place] [address] March, [facility] [address] [id number] [address] [place] [address], [place] [address] March, [facility] [address] [id number] [address] [place] [address], [place] [address] March, [facility] [address] [id number] [address] [place] [address], [place] [address] March, [facility] [address] [id number] [address] [place] [address], [place] [address] March, [facility] [address] [id number] [address] [place] [address], [place] [address] March, [facility] [address] [id number] [address] [place] [address], [place] [address] Nov, [facility] [address] [id number] [address] [place] [address], [place] [address] Nov, [facility] [address] [id number] [address] [place] [address], [place] [address] Nov, [facility] [address] [id number] [address] [place] [address], [place] [address] Oct, [facility] [address] [id number] [address] [place] [address] Oct, [facility] [address] [facility] [id number] [address] [place] [address] Aug, [facility] [address] [facility] [id number] [address] [place] [address] Aug, [facility] [place] [address] [id number] [place] [id number] Jun, [facility] [place] [address] [id number] [place] [id number] Apr, [facility] [address] [facility] [id number] [address] [place] [address] Apr, [facility] [address] [facility] [id number] [address] [place] [address] Apr, [facility] [place] [address] [id number] [place] [id number] March, [facility] [place] [address] [id number] [place] [id number] Feb, [facility] [place] [address] [id number] [place] [id number] Jan, [facility] [address] [facility] [id number] [address] [place] [address] Jan, [facility] [address] [facility] [id number] [address] [place] [address] Jan, [facility] [address] [facility] [id number] [address] [place] [address] Jan, [facility] [place] [address] [id number] [place] [id number] Dec, [facility] [place] [address] [facility] [id number] [place] [id number] Dec, [facility] [address] [facility] [id number] [address] [place] [address] Dec, [facility] [address] [facility] [id number] [address] [place] [address] 08 Dec, 2012 [facility] [address] [id number] [address] [place] [address] Dec, [facility] [address] [id number] [address] [place] [address] Nov, [facility] [address] [id number] [address] [place] [address], [place] [address] Nov, [facility] [place] [address] [id number] [place] [id number] Nov, [facility] [address] [id number] [address] [place] [address], [place] [address] Nov, [facility] [place] [address] [id number] [place] [id number] Nov, [facility] [place] [address] [id number] [place] [id number] Nov, [facility] [place] [address] [id number] [place] [id number] Oct, [facility] [place] [address] [id number] [place] [id number] Oct, [facility] [address] [facility] [id number] [address] [place] [address] Oct, [facility] [address] [facility] [id number] [address] [place] [address] Oct, [facility] [address] [facility] [id number] [address] [place] [address] Oct, [facility] [address] [facility] [id number] [address] [place] [address] Sep, [facility] [address] [facility] [id number] [address] [place] [address] Sep, [facility] [place] [address] [id number] [place] [id number] Sep, [facility] [place] [address] [id number] [place] [id number] Sep, [facility] [place] [address] [id number] [place] [id number] Sep, [facility] [address] [facility] [id number] [address] [place] [address] Sep, [facility] [address] [facility] [id number] [address] [place] [address] Aug, [facility] [place] [address] [id number] [place] [id number] Aug, [facility] [address] [facility] [id number] [address] [place] [address] Aug, [facility] [place] [address] [id number] [place] [id number] Jul, [facility] [place] [address] [id number] [place] [id number] Jul, [facility] [place] [address] [id number] [place] [id number] Jun, [facility] [place] [address] [id number] [place] [id number] May, [facility] [place] [address] [id number] [place] [id number] Feb, [facility] [place] [address] [id number] [place] [id number] Feb, [facility] [place] [address] [id number] [place] [id number] Feb, [facility] [address] [id number] [place] [id number] Dec, [facility] [place] [address] [id number] [place] [id number] Dec, [facility] [address] [facility] [id number] [address] [place] [address] Oct, [facility] [address] [facility] [id number] [address] [place] [id number] Sep, [facility] [address] [facility] [id number] [address] [place] [address] Sep, [facility] [address] [facility] [id number] [address] [place] [address] Sep, [facility] [address] [id number] [address] [place] [address] Sep, [facility] [address] [id number] [address] [place] [address] March, [facility] [address] [id number] [address] [place] [phone] Sep, [facility] [address] [id number] [address] [place] [id number] Jul, [facility] [address] [id number] [address] [place] [phone] May, [facility] [address] [id number] [address] [place] [phone] Jan, [facility] [address] [id number] [address] [place] [phone] Sep, [facility] [address] [id number] [address] [place] [phone] Aug, IMMUNIZATIONS No Known Immunizations SOCIAL HISTORY Never Assessed REASON FOR VISIT PMH obtained. Edmundo CAGLE PLAN OF CARE VITAL SIGNS MEDICATIONS Medication Instructions Dosage Frequency Start Date End Date Duration S tatus Aspirin 81 mg take 1 tablet (81 mg) by oral route once daily Nov, Active Crestor 40 mg Orally Once a day 1 tablet 24h March, Unknown Fish Oil 1000 MG Orally Twice a day 1 capsule 12h Oct, 30 day(s) Unknown Atorvastatin Calcium 10 mg Orally Once a day 1 tablet 24h 2015 30 day(s) Active ZyrTEC 10 MG Orally Once a day #16 samples 1 tablet as needed Aug, Unknown Diclofenac Potassium 50 mg Orally Twice a day 1 tablet 12h Apr, 017 Not-Taking Toprol XL 25 mg Orally Once a day take 1 tablet (25 mg ) by oral route once daily 24h March, Active HydrOXYzine HCl 25 MG Orally every 8 hrs 1 tablet as needed 8h Active Viibryd 40 mg Orally Once a day 1 tablet with food 24h March, Active RESULTS No Results PROCEDURES No Known [...]
--- OUTSIDE RECORDS SUMMARY | 2020-05-31 11:50 | XMS REPORT ---
Author Author Jeaen JONES Organization [facility] Address [address] [place] [address] Care Team Providers Care Steel Manager Name Role Phone BIBIANA JONES Unavailable PROBLEMS Type Condition ICD9-CM Code RZO44-XO Code Onset Dates Condition S tatus SNOMED Code Problem Depression F32.9 Active 58671722 Problem Hypercholesterolemia with hypertriglyceridemia E78 .2 Active 246836755 Problem Dysthymia (or depressive neurosis) F34.1 Active 79570482 Problem Anxiety F41.9 Active 37174639 Problem Cannabis use disorder, mild, abuse F12.10 Active 32080812 Problem Alcohol use disorder, moderate, in sustained remission F10.21 Active 14033463 Problem 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 Active 381467873 Problem Environmental allergies Z91.09 Active 326084342 Problem Cigarette nicotine dependence without complication F17.210 Active 19430148 Problem Lumbago with sciatica, unspecified side M54.40 Active 775899881 ALLERGIES Substance Reaction Event Type Date Status Medrol twitching of arms and legs Drug Allergy Nov, A ctive ENCOUNTERS Encounter Location Date Diagnosis [place] [address] [place] [id number] [address] [place] [id number] March, Lumbago with sciatica, unspe cified side M54.40 ; Environmental allergies Z91.09 ; Hypercholesterolemia with hypertriglyceridemia E78.2 and Atherosclerotic heart disease of iroquois coronary artery without angina pectoris I25.10 [facility] [address] [id number] [address] [place] [id number] 14 Dec, 2017 Severe episode of recurrent major depressive disorder, without psychotic features F33.2 ; Alcohol use disorder, moderate, in sustained remission F10.21 and Cannabis use disorder, mild, abuse F12.10 [facility] [address] [id number] [address] [place] [id number] Dec, Severe episode of recurrent major depressive disorder, without psychotic features F33.2 [facility] [address] [id number] [address] [place] [phone] Nov, [facility] [address] [facility] [id number] [address] [place] [address] Nov, 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 ; Hypercholesterolemia with hypertriglyceridemia E78.2 ; Depression F32.9 and Cigarette nicotine dependence without complication F17.210 [facility] [id number] [address] [place] [phone] Oct, [place] [address] [place] [address] [id number] [place] [address] Jul, [place] [address] [place] [id number] [address] [place] [id number] Jun, [facility] [id number] [place] [address] Apr, Pain in thoracic spine M54.6 and Lumbago with sciatica, unspecified side M54.40 [place] [address] [place] [id number] [address] [place] [phone] March, [place] [address] [place] [address] [id number] [place] [address] March, Depression F32.9 [facility] [id number] [place] [address] March, Anxiety F41.9 ; Depression F 32.9 ; Atherosclerotic heart disease of iroquois coronary artery without angina pectoris I25.10 ; Hypercholesterolemia with hypertriglyceridemia E78.2 ; Right wrist tendonitis M77.8 and Environmental allergies Z91.09 [facility] [address] [id number] [place] [id number] Dec, [facility] [address] [id number] [address] [place] [id number] Nov, Iron deficiency anemia, unsp ecified iron deficiency anemia type D50.9 ; Anxiety F41.9 ; Dysthymia (or depressive neurosis) F34.1 and Hypercholesterolemia with hypertriglyceridemia E78.2 [place] [address] [address] Oct, [place] [address] [address] Oct, [place] [address] [address] Oct, Dysthymia (or depressive sherice rosis) F34.1 ; Atherosclerotic heart disease of iroquois coronary artery without angina pectoris I25.10 ; Coronary atherosclerosis due to lipid rich plaque I25.83 ; Hypercholesterolemia with hypertriglyceridemia E78.2 ; Iron deficiency anemia, unspecified iron deficiency anemia type D50.9 ; Hospital discharge follow-up Z09 ; History of PID Z87.42 ; Environmental allergies Z91.09 and Dysuria R30.[address] [address] Sep, [address] [address] Sep, [address] [address] Aug, Dysthymia F34.1 and Anxiety F41.[address] [address] March, Coronary artery disease invo lving iroquois coronary artery, angina presence unspecified, unspecified whether iroquois or transplanted heart I25.10 ; Bipolar 1 disorder, depressed F31.9 ; Anxiety F41.9 and Dysthymia F34.[address] [address] 04 Feb, 2016 Depression F32.9 and Stomach pain R10.[address] [address] Jan, Hyperlipidemia 272.4 [place] [address] [address] Dec, [place] [address] [address] Dec, Major depressive disorder, r ecurrent episode, unspecified 296.30 ; Anxiety F41.9 ; Grief F43.20 and Dysthymia F34.1 [place] [address] [address] Dec, Anxiety F41.9 and Grief F43. 20 [place] [address] [address] Oct, Insomnia, unspecified G47.00 and Anxiety F41.[address] [address] Oct, Dysthymia F34.1 ; Right shou lder pain M25.511 ; Sciatica, right M54.31 and Iron deficiency anemia, unspecified iron deficiency anemia type D50.9 [place] [address] [address] Sep, [place] [address] [address] Sep, Grief F43.20 [place] [address] [address] Sep, [place] [address] [address] Sep, [place] [address] [address] Sep, Hyperlipidemia E78.5 ; CAD ( coronary artery disease) I25.10 and HTN (hypertension) I10 [address] [address] Aug, Allergic rhinitis, unspecifi ed allergic rhinitis type J30.9 [facility] [address] [id number] [address] [place] [address] Aug, Left-sided low back pain wit h right-sided sciatica M54.41 and Hyperlipidemia, unspecified hyperlipidemia E78.5 [facility] [address] [facility] [id number] [address] [place] [address] Aug, Neck pain M54.2 and Low back pain M54.5 [facility] [address] [id number] [address] [place] [phone] Jun, [facility] [address] [id number] [address] [place] [address] Jun, [facility] [address] [facility] [id number] [address] [place] [address] Jun, CAD (coronary artery disease ) 414.00 ; Hyperlipidemia 272.4 and Anemia 285.9 [facility] [address] [facility] [id number] [address] [place] [address] Feb, [facility] [address] [facility] [id number] [address] [place] [id number] Feb, [facility] [address] [id number] [address] [place] [phone] Jan, [facility] [address] [facility] [id number] [address] [place] [address] Jan, [facility] [address] [facility] [id number] [address] [place] [phone] Jan, [facility] [address] [facility] [id number] [address] [place] [address] Jan, [facility] [address] [facility] [id number] [address] [place] [phone] Dec, [facility] [address] [facility] [id number] [address] [place] [address] Dec, [facility] [address] [id number] [address] [place] [address], [place] [address] Dec, 2014 [facility] [address] [id number] [address] [place] [address], [place] [address] Dec, 2014 [facility] [address] [id number] [address] [place] [address], [place] [address] Dec, 2014 [facility] [address] [id number] [address] [place] [address], [place] [address] Dec, 2014 [facility] [address] [id number] [address] [place] [address], [place] [address] Dec, [facility] [address] [id number] [address] [place] [address], [place] [address] Dec, 2014 [facility] [address] [id number] [address] [place] [address], [place] [address] Dec, [facility] [address] [id number] [address] [place] [address], [place] [address] Dec, [facility] [address] [id number] [address] [place] [address], [place] [address] Dec, [facility] [address] [id number] [address] [place] [address], [place] [address] Dec, [facility] [address] [id number] [address] [place] [address], [place] [address] Nov, [facility] [address] [id number] [address] [place] [address], [place] [address] Nov, [facility] [address] [id number] [address] [place] [address], [place] [address] Nov, [facility] [address] [id number] [address] [place] [address], [place] [address] Nov, [facility] [address] [id number] [address] [place] [address], [place] [address] Oct, [facility] [address] [id number] [address] [place] [phone] Oct, [facility] [address] [id number] [address] [place] [address], [place] [address] Sep, [facility] [address] [id number] [address] [place] [address], [place] [address] Sep, [facility] [address] [id number] [address] [place] [address], [place] [address] Aug, [facility] [address] [id number] [address] [place] [address], [place] [address] Aug, [facility] [address] [id number] [address] [place] [address], [place] [address] 30 Jul, 2014 [facility] [address] [id number] [address] [place] [address], [place] [address] 30 Jul, 2014 [facility] [address] [id number] [address] [place] [address], [place] [address] 16 Jul, 2014 [facility] [address] [id number] [address] [place] [address], [place] [address] 16 Jul, 2014 [facility] [address] [id number] [address] [place] [address], [place] [address] 15 Jul, 2014 [facility] [address] [id number] [address] [place] [address], [place] [address] 12 Jul, 2014 [facility] [address] [id number] [address] [place] [address], [place] [address] 12 Jul, 2014 [facility] [address] [id number] [address] [place] [address], [place] [address] 11 Jul, 2014 [facility] [address] [id number] [address] [place] [address], [place] [address] 11 Jul, 2014 [facility] [address] [id number] [address] [place] [address], [place] [address] 10 Jul, 2014 [facility] [address] [id number] [address] [place] [address], [place] [address] 10 Jul, 2013 [facility] [address] [id number] [facility] [place] [address] Jul, [facility] [address] [id number] [address] [place] [address], [place] [address] Jul, [facility] [address] [id number] [facility] [place] [address] Jun, [facility] [address] [id number] [address] [place] [address], [place] [address] Jun, [facility] [address] [id number] [address] [place] [address], [place] [address] Jun, [facility] [address] [id number] [address] [place] [address], [place] [address] Jun, [facility] [address] [id number] [address] [place] [address], [place] [address] Jun, [facility] [address] [id number] [address] [place] [address], [place] [address] Jun, [facility] [address] [id number] [address] [place] [address], [place] [address] Jun, [facility] [address] [id number] [address] [place] [address], [place] [address] Jun, [facility] [address] [id number] [address] [place] [address], [place] [address] May, [facility] [address] [id number] [address] [place] [address], [place] [address] May, [facility] [address] [id number] [address] [place] [address], [place] [address] Apr, [facility] [address] [id number] [address] [place] [address], [place] [address] Apr, [facility] [address] [id number] [address] [place] [address], [place] [address] Apr, [facility] [address] [id number] [address] [place] [address], [place] [address] Apr, [facility] [address] [id number] [address] [place] [address], [place] [address] March, [facility] [address] [id number] [address] [place] [address], [place] [address] March, [facility] [address] [id number] [address] [place] [address], [place] [address] March, [facility] [address] [id number] [address] [place] [address], [place] [address] March, [facility] [address] [id number] [address] [place] [address], [place] [address] March, [facility] [address] [id number] [address] [place] [address], [place] [address] March, [facility] [address] [id number] [address] [place] [address], [place] [address] March, [facility] [address] [id number] [address] [place] [address], [place] [address] March, [facility] [address] [id number] [address] [place] [address], [place] [address] March, [facility] [address] [id number] [address] [place] [address], [place] [address] March, [facility] [address] [id number] [address] [place] [address], [place] [address] March, [facility] [address] [id number] [address] [place] [address], [place] [address] Nov, [facility] [address] [id number] [address] [place] [address], [place] [address] Nov, [facility] [address] [id number] [address] [place] [address], [place] [address] Nov, [facility] [address] [id number] [address] [place] [address], [place] [address] Oct, [facility] [address] [id number] [address] [place] [address] Oct, [facility] [address] [facility] [id number] [address] [place] [address] Aug, [facility] [address] [facility] [id number] [address] [place] [address] Aug, [facility] [place] [address] [id number] [place] [id number] Jun, [facility] [place] [address] [id number] [place] [id number] Apr, [facility] [address] [facility] [id number] [address] [place] [address] Apr, [facility] [address] [facility] [id number] [address] [place] [address] Apr, [facility] [place] [address] [id number] [place] [id number] March, [facility] [address] [id number] [place] [id number] Feb, [facility] [place] [address] [id number] [place] [id number] Jan, [facility] [address] [facility] [id number] [address] [place] [address] Jan, [facility] [address] [facility] [id number] [address] [place] [address] Jan, [facility] [address] [facility] [id number] [address] [place] [id number] Jan, [facility] [place] [address] [id number] [place] [id number] Dec, [facility] [place] [address] [facility] [id number] [place] [id number] Dec, [facility] [address] [facility] [id number] [address] [place] [address] Dec, [facility] [address] [facility] [id number] [address] [place] [id number] 08 Dec, 2012 [facility] [address] [id number] [address] [place] [id number] Dec, [facility] [address] [id number] [address] [place] [address] Nov, [facility] [address] [id number] [address] [place] [address], [place] [address] Nov, [facility] [place] [address] [id number] [place] [id number] Nov, [facility] [address] [id number] [address] [place] [address], [place] [address] Nov, [facility] [address] [id number] [place] [id number] Nov, [facility] [place] [address] [id number] [place] [id number] Nov, [facility] [address] [id number] [place] [id number] Oct, [facility] [address] [id number] [place] [id number] Oct, [facility] [address] [facility] [id number] [address] [place] [id number] Oct, [facility] [address] [facility] [id number] [address] [place] [id number] Oct, [facility] [address] [facility] [id number] [address] [place] [id number] Oct, [facility] [address] [facility] [id number] [address] [place] [id number] Sep, [facility] [address] [facility] [id number] [address] [place] [id number] Sep, [facility] [place] [address] [id number] [place] [id number] Sep, [facility] [place] [address] [id number] [place] [id number] Sep, [facility] [place] [address] [id number] [place] [id number] Sep, [facility] [address] [facility] [id number] [address] [place] [id number] Sep, [facility] [address] [facility] [id number] [address] [place] [id number] Aug, [facility] [place] [address] [id number] [place] [id number] Aug, [facility] [address] [facility] [id number] [address] [place] [id number] Aug, [facility] [address] [id number] [place] [id number] Jul, [facility] [place] [address] [id number] [place] [id number] Jul, [facility] [address] [id number] [place] [id number] Jun, [facility] [place] [address] [id number] [place] [id number] May, [facility] [place] [address] [id number] [place] [id number] Feb, [facility] [address] [id number] [place] [id number] Feb, [facility] [address] [id number] [place] [id number] Feb, [facility] [place] [address] [id number] [place] [id number] Dec, [facility] [address] [id number] [place] [id number] Dec, [facility] [address] [facility] [id number] [address] [place] [id number] Oct, [facility] [address] [facility] [id number] [address] [place] [phone] Sep, [facility] [address] [facility] [id number] [address] [place] [phone] Sep, [facility] [address] [facility] [id number] [address] [place] [id number] Sep, [facility] [address] [facility] [id number] [address] [place] [phone] Sep, [facility] [address] [facility] [id number] [address] [place] [phone] March, [facility] [address] [facility] [id number] [address] [place] [phone] Sep, [facility] [address] [facility] [id number] [address] [place] [phone] Jul, [facility] [address] [facility] [id number] [address] [place] [id number] May, [facility] [address] [facility] [id number] [address] [place] [phone] Jan, [facility] [address] [place] [id number] [address] [place] [phone] Sep, [facility] [address] [facility] [id number] [address] [place] [phone] Aug, IMMUNIZATIONS No Known Immunizations SOCIAL HISTORY Never Assessed REASON FOR VISIT Depression- pt needs refill on prescriptions. JjournotRN, Wants to have Viibryd increased. Also, having alot of anxiety., Wants to stop smoking and wants sampl es of patches. ( has no money) PLAN OF CARE Activity Details Follow Up 2 Months Reason: VITAL SIGNS Height 61.0 in 2017-11-29 Weight 112.7 lbs 2017-11-29 Temperature 98.3 degrees Fahrenheit 2017-11-29 Heart Rate 88 bpm 2017-11-29 Respiratory Rate 20 2017-11-29 BMI 21.29 kg/m2 2017-11-29 Blood pressure systolic 130 mmHg 2017-11-29 Blood pressure diastolic 78 mmHg 2017-11-29 MEDICATIONS Medication Instructions Dosage Frequency Start Date End Date Duration S tatus Aspirin 81 mg take 1 tablet (81 mg) by oral route once daily Nov, Active HydrOXYzine HCl 25 MG Orally every 8 hrs 1 tablet as needed 8h Active Toprol XL 25 mg Orally Once a day take 1 tablet (25 mg ) by oral route once daily 24h March, Active Viibryd 40 mg Orally Once a day 1 tablet with food 24h March, Active Atorvastatin Calcium 10 mg Orally Once a day 1 tablet 24h 2015 90 days Active ZyrTEC 10 MG Orally Once a day #16 samples 1 tablet as needed Aug, Not-Taking Diclofenac Potassium 50 mg Orally Twice a day 1 tablet 12h 28 Apr, 017 Not-Taking Crestor 40 mg Orally Once a day 1 tablet 24h March, Not-Taking Fish Oil 1000 MG Orally Twice a day 1 capsule 12h Oct, 30 day(s) Not-Taking RESULTS No Results PROCEDURES No Known procedures [...]
--- OUTSIDE RECORDS SUMMARY | 2020-05-31 11:50 | XMS REPORT ---
Author Author Jeane BAILEY Organization [facility] Address [address] [place] [address] Care Team Providers Care Sweep Press Operator Name Role Phone BAILEYPETRAGUTIERREZ Unavailable PROBLEMS Type Condition ICD9-CM Code AND97-[id number] Code Onset Dates Condition S tatus SNOMED Code Problem Grief F43.20 Active 14064325 Problem Hypercholesterolemia with hypertriglyceridemia E78 .2 Active 686198470 Problem Depression F32.9 Active 28192087 Problem Iron deficiency anemia, unspecified iron deficiency an emia type D50.9 Active 54510558 Problem Anxiety F41.9 Active 74849134 Problem Lumbago with sciatica, unspecified side M54.40 Active 748350343 Problem Right wrist tendonitis M77.8 Active 68321811061747744 Problem Coronary atherosclerosis due to lipid rich plaque I25.83 Active 660496217715501 Problem Environmental allergies Z91.09 Active 080066529 Problem Dysthymia (or depressive neurosis) F34.1 Active 08112331 Problem Atherosclerotic heart diseas e of [place] coronary artery without angina pectoris I25.10 Active 235002260 ALLERGIES Substance Reaction Event Type Date Status Medrol twitching of arms and legs Drug Allergy Nov, A ctive SOCIAL HISTORY No smoking Hx information available PLAN OF CARE Activity Details Follow Up 3 Months Reason:depression VITAL SIGNS Height 61.0 in 2016-12-17 Weight 109.2 lbs 2016-12-17 Temperature 97.6 degrees Fahrenheit 2016-12-17 Heart Rate 88 bpm 2016-12-17 Respiratory Rate 18 2016-12-17 BMI 20.63 kg/m2 2016-12-17 Blood pressure systolic 130 mmHg 2016-12-17 Blood pressure diastolic 90 mmHg 2016-12-17 MEDICATIONS Medication Instructions Dosage Frequency Start Date End Date Duration S tatus Atorvastatin Calcium 10 mg Orally Once a day 1 tablet 24h 2015 30 day(s) Active Viibryd 40 mg Orally Once a day 1 tablet 24h Oct, 90 days Active Aspirin 81 mg take 1 tablet (81 mg) by oral route once daily Nov, Active RESULTS No Results PROCEDURES Procedure Date Ordered Related Diagnosis Body Site Office Visit, Est Pt., Level 4 Dec 17, 2016 IMMUNIZATIONS No Known Immunizations
--- OUTSIDE RECORDS SUMMARY | 2020-05-31 11:50 | XMS REPORT ---
Author Author Jeane BAILEY Organization [facility] Address [address] [place] [address] Care Team Providers Care Consumer Experience Consultant Name Role Phone PETRA BAILEYNETTE Unavailable PROBLEMS Type Condition ICD9-CM Code RBR17-FR Code Onset Dates Condition S tatus SNOMED Code Problem Grief F43.20 Active 67502313 Problem Hypercholesterolemia with hypertriglyceridemia E78 .2 Active 685541229 Problem Depression F32.9 Active 16094297 Problem Iron deficiency anemia, unspecified iron deficiency an emia type D50.9 Active 22787904 Problem Anxiety F41.9 Active 04923738 Problem Lumbago with sciatica, unspecified side M54.40 Active 996640311 Problem Right wrist tendonitis M77.8 Active 54825824521950839 Problem Coronary atherosclerosis due to lipid rich plaque I25.83 Active 591074947596444 Problem Environmental allergies Z91.09 Active 797664341 Problem Dysthymia (or depressive neurosis) F34.1 Active 40321513 Problem Atherosclerotic heart diseas e of [place] coronary artery without angina pectoris I25.10 Active 404999614 ALLERGIES No Information SOCIAL HISTORY Never Assessed PLAN OF CARE VITAL SIGNS MEDICATIONS Medication Instructions Dosage Frequency Start Date End Date Duration S tatus Viibryd 40 mg Orally Once a day 1 tablet with food 24h March, 90 days Active RESULTS No [...]
--- OUTSIDE RECORDS SUMMARY | 2020-05-31 11:50 | XMS REPORT ---
Author Author Jeane BAILEY Organization [facility] Address [address] [place] [address] Care Team Providers Care Representative Personal Service Name Role Phone LYNN GUTIERREZ Unavailable PROBLEMS Type Condition ICD9-CM Code [id number] Code Onset Dates Condition S tatus SNOMED Code Problem Anxiety F41.9 Active 88800637 Problem Environmental allergies Z91.09 Active 923534766 Problem Depression F32.9 Active 41752991 Problem Iron deficiency anemia, unspecified iron deficiency an emia type D50.9 Active 59842059 Problem Grief F43.20 Active 83310705 Problem Lumbago with sciatica, unspecified side M54.40 Active 896770645 Problem Right wrist tendonitis M77.8 Active 04970990349892144 Problem Coronary atherosclerosis due to lipid rich plaque I25.83 Active 839082720045660 Problem Hypercholesterolemia with hypertriglyceridemia E78 .2 Active 095475422 Problem Dysthymia (or depressive neurosis) F34.1 Active 55026998 Problem Atherosclerotic heart diseas e of [place] coronary artery without angina pectoris I25.10 Active 280054061 ALLERGIES Unknown Allergies SOCIAL HISTORY No smoking Hx information available PLAN OF CARE VITAL SIGNS MEDICATIONS Medication Instructions Dosage Frequency Start Date End Date Duration S tatus Atorvastatin Calcium 10 mg Orally Once a day 1 tablet 24h 2015 30 day(s) Active Fish Oil 1000 MG Orally Twice a day 1 capsule 12h Oct, 30 day(s) Active RESULTS No Results PROCEDURES No Known procedures IMMUNIZATIONS No Known Immunizations
--- OUTSIDE RECORDS SUMMARY | 2020-05-31 11:50 | XMS REPORT ---
Author Author Jeane BAILEY Organization [facility] Address [address] [place] [address] Care Team Providers Care Locomotive Repairer Diesel Name Role Phone GUTIERREZ BAILEY Unavailable PROBLEMS Type Condition ICD9-CM Code VVZ80-ND Code Onset Dates Condition S tatus SNOMED Code Problem Grief F43.20 Active 36886096 Problem Hypercholesterolemia with hypertriglyceridemia E78 .2 Active 726679600 Problem Depression F32.9 Active 24584672 Problem Iron deficiency anemia, unspecified iron deficiency an emia type D50.9 Active 48410145 Problem Anxiety F41.9 Active 01333564 Problem Lumbago with sciatica, unspecified side M54.40 Active 301642443 Problem Right wrist tendonitis M77.8 Active 36490405199859013 Problem Coronary atherosclerosis due to lipid rich plaque I25.83 Active 482398309155067 Problem Environmental allergies Z91.09 Active 208935251 Problem Dysthymia (or depressive neurosis) F34.1 Active 61177598 Problem Atherosclerotic heart diseas e of [place] coronary artery without angina pectoris I25.10 Active 059344593 ALLERGIES No Information SOCIAL HISTORY Never Assessed [...]
--- OUTSIDE RECORDS SUMMARY | 2020-05-31 11:51 | XMS REPORT ---
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 Role Phone [email or web address] GUTIERREZ Unavailable PROBLEMS Type Condition ICD9-CM Code KBE48-GR Code Onset Dates Condition S tatus SNOMED Code Problem Atherosclerotic heart diseas e of [place] coronary artery without angina pectoris I25.10 Active 621427961 Problem Dysthymia (or depressive neurosis) F34.1 Active 03807755 Problem Hypercholesterolemia with hypertriglyceridemia E78 .2 Active 536739966 Problem Cannabis use disorder, mild, abuse F12.10 Active 74425617 Problem Alcohol use disorder, moderate, in sustained remission F10.21 Active 60838681 Problem Lumbago with sciatica, unspecified side M54.40 Active 919389395 Problem Right wrist tendonitis M77.8 Active [id number] Problem Severe episode of recurrent major depressive disorder, without psychotic features F33.2 Active 15490144 Problem Cigarette nicotine dependence without complication F17.210 Active 82878907 Problem Grief F43.20 Active 20085230 Problem Depression F32.9 Active 59726947 Problem Iron deficiency anemia, unspecified iron deficiency an emia type D50.9 Active 20923959 Problem Environmental allergies Z91.09 Active 537637289 Problem Anxiety F41.9 Active 88890855 Problem Coronary atherosclerosis due to lipid rich plaque I25.83 Active [id number] ALLERGIES No Information ENCOUNTERS Encounter Location Date Diagnosis [facility] [address] [facility] [id number] [address] [place] [phone] March, [facility] [address] [facility] [id number] [address] [place] [id number] 14 Dec, 2017 Severe episode of recurrent major depressive disorder, without psychotic features F33.2 ; Alcohol use disorder, moderate, in sustained remission F10.21 and Cannabis use disorder, mild, abuse F12.10 [facility] [address] [place] [id number] [address] [place] [id number] 12 Dec, 2017 Severe episode of recurrent major depressive disorder, without psychotic features F33.2 [facility] [address] [place] [id number] [address] [place] [phone] Nov, [place] [address] [place] [id number] [place] [address] Nov, Atherosclerotic heart diseas e of [place] coronary artery without angina pectoris I25.10 ; Hypercholesterolemia with hypertriglyceridemia E78.2 ; Depression F32.9 and Cigarette nicotine dependence without complication F17.210 [place] [address] [place] [id number] [address] [place] [phone] Oct, [place] [address] [place] [id number] [address] [place] [address] Jul, [place] [address] [place] [id number] [address] [place] [phone] Jun, [place] [address] [place] [id number] [address] [place] [phone] Apr, Pain in thoracic spine M54.6 and Lumbago with sciatica, unspecified side M54.40 [place] [address] [place] [id number] [address] [place] [phone] March, [place] [address] [place] [id number] [address] [place] [phone] March, Depression F32.9 [place] [address] [place] [id number] [address] [place] [phone] March, Anxiety F41.9 ; Depression F 32.9 ; Atherosclerotic heart disease of [place] coronary artery without angina pectoris I25.10 ; Hypercholesterolemia with hypertriglyceridemia E78.2 ; Right wrist tendonitis M77.8 and Environmental allergies Z91.09 [facility] [id number] [place] [id number] Dec, [place] [address] [facility] [id number] [address] [place] [phone] Nov, Iron deficiency anemia, unsp ecified iron deficiency anemia type D50.9 ; Anxiety F41.9 ; Dysthymia (or depressive neurosis) F34.1 and Hypercholesterolemia with hypertriglyceridemia E78.2 [place] [address] [facility] [id number] [address] [place] [phone] Oct, [place] [address] [facility] [id number] [place] [phone] 08 Oct, 2016 [place] [address] [facility] [id number] [address] [place] [phone] 02 Oct, 2016 Dysthymia (or depressive sherice rosis) F34.1 ; Atherosclerotic heart disease of [place] coronary artery without angina pectoris I25.10 ; Coronary atherosclerosis due to lipid rich plaque I25.83 ; Hypercholesterolemia with hypertriglyceridemia E78.2 ; Iron deficiency anemia, unspecified iron deficiency anemia type D50.9 ; Hospital discharge follow-up Z09 ; History of PID Z87.42 ; Environmental allergies Z91.09 and Dysuria R30.0 [place] [address] [facility] [id number] [place] [phone] Sep, [place] [address] [place] [id number] [place] [phone] Sep, [place] [address] [place] [id number] [address] [place] [phone] Aug, Dysthymia F34.1 and Anxiety F41.9 [place] [address] [place] [id number] [address] [place] [address] March, Coronary artery disease invo lving sh[place] coronary artery, angina presence unspecified, unspecified whether [place] or transplanted heart I25.10 ; Bipolar 1 disorder, depressed F31.9 ; Anxiety F41.9 and Dysthymia F34.1 [place] [address] [place] [id number] [address] [place] [phone] Feb, Depression F32.9 and Stomach pain R10.9 [place] [address] [address] 10 Jan, 2016 Hyperlipidemia 272.4 [place] [address] [address] 17 Dec, 2015 [place] [address] [address] 11 Dec, 2015 Major depressive disorder, r ecurrent episode, unspecified 296.30 ; Anxiety F41.9 ; Grief F43.20 and Dysthymia F34.1 [place] [address] [address] Dec, Anxiety F41.9 and Grief F43. 20 [place] [address] [address] Oct, Insomnia, unspecified G47.00 and Anxiety F41.9 [place] [address] [address] Oct, Dysthymia F34.1 ; Right shou lder pain M25.511 ; Sciatica, right M54.31 and Iron deficiency anemia, unspecified iron deficiency anemia type D50.9 [place] [address] [address] Sep, [place] [address] [address] Sep, Grief F43.20 [place] [address] [address] Sep, [place] [address] [address] 05 Sep, 2015 [place] [address] [address] Sep, Hyperlipidemia E78.5 ; CAD ( coronary artery disease) I25.10 and HTN (hypertension) I10 [place] [address] [place] [id number] [address] [place] [address] Aug, Allergic rhinitis, unspecifi ed allergic rhinitis type J30.9 [facility] [address] [facility] [id number] [address] [place] [address] Aug, Left-sided low back pain wit h right-sided sciatica M54.41 and Hyperlipidemia, unspecified hyperlipidemia E78.5 [facility] [address] [facility] [id number] [place] [phone] Aug, Neck pain M54.2 and Low back pain M54.5 [facility] [address] [facility] [id number] [address] [place] [phone] Jun, [facility] [address] [place] [id number] [place] [address] Jun, [facility] [address] [address] Jun, CAD (coronary artery disease ) 414.00 ; Hyperlipidemia 272.4 and Anemia 285.9 [facility] [address] [facility] [id number] [address] [place] [phone] Feb, [facility] [address] [place] [id number] [address] [place] [phone] Feb, [facility] [address] [place] [id number] [address] [place] [phone] Jan, [facility] [address] [facility] [id number] [address] [place] [phone] Jan, [facility] [address] [facility] [id number] [address] [place] [phone] Jan, [facility] [address] [facility] [id number] [address] [place] [phone] Jan, [facility] [address] [place] [id number] [address] [place] [phone] Dec, [facility] [address] [facility] [id number] [address] [place] [phone] Dec, 2014 [facility] [address] [id number] [address] [place] [address], [place] [address] Dec, 2014 [facility] [address] [id number] [address] [place] [address], [place] [address] Dec, 2014 [facility] [address] [id number] [address] [place] [address], [place] [address] Dec, 2014 [facility] [address] [id number] [address] [place] [address], [place] [address] Dec, 2014 [facility] [address] [id number] [address] [place] [address], [place] [address] Dec, 2014 [facility] [address] [id number] [address] [place] [address], [place] [address] Dec, 2014 [facility] [address] [id number] [address] [place] [address], [place] [address] Dec, [facility] [address] [id number] [address] [place] [address], [place] [address] Dec, [facility] [address] [id number] [address] [place] [address], [place] [address] Dec, [facility] [address] [id number] [address] [place] [address], [place] [address] Dec, [facility] [address] [id number] [address] [place] [address], [place] [address] Nov, [facility] [address] [id number] [address] [place] [address], [place] [address] Nov, [facility] [address] [id number] [address] [place] [address], [place] [address] Nov, [facility] [address] [id number] [address] [place] [address], [place] [address] Nov, [facility] [address] [id number] [address] [place] [id number] Oct, [facility] [address] [id number] [address] [place] [address], [place] [address] Oct, [facility] [address] [id number] [address] [place] [address], [place] [address] Sep, [facility] [address] [id number] [address] [place] [address], [place] [address] Sep, [facility] [address] [id number] [address] [place] [address], [place] [address] Aug, [facility] [address] [id number] [address] [place] [address], [place] [address] Aug, [facility] [address] [id number] [address] [place] [address], [place] [address] 30 Jul, 2014 [facility] [address] [id number] [address] [place] [address], [place] [address] 30 Jul, 2014 [facility] [address] [id number] [address] [place] [address], [place] [address] 16 Jul, 2014 [facility] [address] [id number] [address] [place] [address], [place] [address] 16 Jul, 2014 [facility] [address] [id number] [address] [place] [address], [place] [address] 15 Jul, 2014 [facility] [address] [id number] [address] [place] [address], [place] [address] 12 Jul, 2014 [facility] [address] [id number] [address] [place] [address], [place] [address] 12 Jul, 2014 [facility] [address] [id number] [address] [place] [address], [place] [address] 11 Jul, 2014 [facility] [address] [id number] [address] [place] [address], [place] [address] 11 Jul, 2014 [facility] [address] [id number] [address] [place] [address], [place] [address] 10 Jul, 2014 [facility] [address] [id number] [facility] [place] [address] Jul, [facility] [address] [id number] [address] [place] [address], [place] [address] Jul, [facility] [address] [id number] [address] [place] [address], [place] [address] Jul, [facility] [address] [id number] [address] [place] [address], [place] [address] Jun, [facility] [address] [id number] [address] [place] [address], [place] [address] Jun, [facility] [address] [id number] [address] [place] [address], [place] [address] Jun, [facility] [address] [id number] [address] [place] [address], [place] [address] Jun, [facility] [address] [id number] [address] [place] [address], [place] [address] Jun, [facility] [address] [id number] [address] [place] [address], [place] [address] Jun, [facility] [address] [id number] [address] [place] [address], [place] [address] Jun, [facility] [address] [id number] [address] [place] [address], [place] [address] Jun, [facility] [address] [id number] [address] [place] [address], [place] [address] May, [facility] [address] [id number] [address] [place] [address], [place] [address] May, [facility] [address] [id number] [address] [place] [address], [place] [address] Apr, [facility] [address] [id number] [address] [place] [address], [place] [address] Apr, [facility] [address] [id number] [address] [place] [address], [place] [address] Apr, [facility] [address] [id number] [address] [place] [address], [place] [address] Apr, [facility] [address] [id number] [address] [place] [address], [place] [address] March, [facility] [address] [id number] [address] [place] [address], [place] [address] March, [facility] [address] [id number] [address] [place] [address], [place] [address] March, [facility] [address] [id number] [address] [place] [address], [place] [address] March, [facility] [address] [id number] [address] [place] [address], [place] [address] March, [facility] [address] [id number] [address] [place] [address], [place] [address] March, [facility] [address] [id number] [address] [place] [address], [place] [address] March, [facility] [address] [id number] [address] [place] [address], [place] [address] March, [facility] [address] [id number] [address] [place] [address], [place] [address] March, [facility] [address] [id number] [address] [place] [address], [place] [address] March, [facility] [address] [id number] [address] [place] [address], [place] [address] March, [facility] [address] [id number] [address] [place] [address], [place] [address] Nov, [facility] [address] [id number] [address] [place] [address], [place] [address] Nov, [facility] [address] [id number] [address] [place] [address], [place] [address] Nov, [facility] [address] [id number] [place] [address] Oct, [facility] [address] [id number] [address] [place] [address], [place] [address] Oct, [facility] [address] [facility] [id number] [address] [place] [address] Aug, [facility] [address] [facility] [id number] [address] [place] [address] Aug, [facility] [place] [address] [id number] [place] [id number] Jun, [facility] [place] [address] [id number] [place] [id number] Apr, [facility] [address] [id number] [address] [place] [address], [place] [address] Apr, [facility] [address] [facility] [id number] [address] [place] [address], [place] [address] Apr, [facility] [place] [address] [id number] [place] [id number] March, [facility] [address] [id number] [place] [id number] Feb, [facility] [place] [address] [id number] [place] [id number] Jan, [facility] [address] [facility] [id number] [address] [place] [address] Jan, [facility] [address] [facility] [id number] [address] [place] [address] Jan, [facility] [address] [id number] [address] [place] [address], [place] [address] Jan, [facility] [place] [address] [id number] [place] [id number] Dec, [facility] [place] [address] [id number] [place] [id number] Dec, [facility] [address] [facility] [id number] [address] [place] [address] Dec, [facility] [address] [id number] [address] [place] [address] Dec, [facility] [address] [id number] [address] [place] [address], [place] [address] Dec, [facility] [address] [id number] [address] [place] [address], [place] [address] Nov, [facility] [address] [id number] [address] [place] [address], [place] [address] Nov, [facility] [place] [address] [id number] [place] [id number] Nov, [facility] [address] [id number] [address] [place] [address], [place] [address] Nov, [facility] [place] [address] [id number] [place] [id number] Nov, [facility] [place] [address] [id number] [place] [id number] Nov, [facility] [place] [address] [id number] [place] [id number] Oct, [facility] [place] [address] [id number] [place] [id number] Oct, [facility] [address] [id number] [address] [place] [address], [place] [address] Oct, [facility] [address] [id number] [address] [place] [address] Oct, [facility] [address] [id number] [address] [place] [address] Oct, [facility] [address] [id number] [address] [place] [address] Sep, [facility] [address] [id number] [address] [place] [address] Sep, [facility] [place] [address] [id number] [place] [id number] Sep, [facility] [place] [address] [id number] [place] [id number] Sep, [facility] [place] [address] [id number] [place] [id number] Sep, [facility] [address] [facility] [id number] [address] [place] [id number] Sep, [facility] [address] [facility] [id number] [address] [place] [id number] Aug, [facility] [place] [address] [id number] [place] [id number] Aug, [facility] [address] [facility] [id number] [address] [place] [phone] Aug, [facility] [place] [address] [id number] [place] [id number] Jul, [facility] [place] [address] [id number] [place] [id number] Jul, [facility] [place] [address] [id number] [place] [id number] Jun, [facility] [place] [address] [id number] [place] [id number] May, [facility] [place] [address] [id number] [place] [id number] Feb, [facility] [place] [address] [id number] [place] [id number] Feb, [facility] [place] [address] [id number] [place] [id number] Feb, [facility] [place] [address] [id number] [place] [id number] Dec, [facility] [place] [address] [id number] [place] [id number] Dec, [facility] [address] [facility] [id number] [address] [place] [id number] Oct, [facility] [address] [facility] [id number] [address] [place] [id number] Sep, [facility] [address] [facility] [id number] [address] [place] [id number] 10 Sep, 2011 [facility] [place] [address] [id number] [address] [place] [id number] Sep, [facility] [place] [address] [id number] [address] [place] [id number] Sep, [facility] [place] [address] [id number] [address] [place] [id number] March, [facility] [place] [address] [id number] [address] [place] [id number] Sep, [facility] [place] [address] [id number] [address] [place] [id number] Jul, [facility] [place] [address] [id number] [address] [place] [phone] May, [facility] [place] [address] [id number] [address] [place] [phone] Jan, [facility] [place] [address] [id number] [address] [place] [id number] Sep, [facility] [place] [address] [id number] [address] [place] [id number] Aug, IMMUNIZATIONS No Known Immunizations SOCIAL HISTORY Never Assessed REASON FOR VISIT No answer PLAN OF CARE VITAL SIGNS MEDICATIONS Medication [...]
--- OUTSIDE RECORDS SUMMARY | 2020-05-31 11:51 | XMS REPORT ---
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 Name Role Phone [email or web address] Unavailable PROBLEMS Type Condition ICD9-CM Code [id number] Code Onset Dates Condition S tatus SNOMED Code Problem Grief F43.20 Active 79812352 Problem Hypercholesterolemia with hypertriglyceridemia E78 .2 Active 627082643 Problem Depression F32.9 Active 66081482 Problem Iron deficiency anemia, unspecified iron deficiency an emia type D50.9 Active 59359872 Problem Anxiety F41.9 Active 38738798 Problem Lumbago with sciatica, unspecified side M54.40 Active 437972168 Problem Right wrist tendonitis M77.8 Active [id number] Problem Coronary atherosclerosis due to lipid rich plaque I25.83 Active 376006172972544 Problem Environmental allergies Z91.09 Active 441171613 Problem Dysthymia (or depressive neurosis) F34.1 Active 92298019 Problem Atherosclerotic heart 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 Active 892268471 ALLERGIES Substance Reaction Event Type Date Status Medrol twitching of arms and legs Drug Allergy March, A ctive SOCIAL HISTORY Never Assessed PLAN OF CARE Activity Details Follow Up 3 Months Reason:anxiety VITAL SIGNS Height 61.0 in 2017-03-29 Weight 112.5 lbs 2017-03-29 Temperature 98.1 degrees Fahrenheit 2017-03-29 Heart Rate 78 bpm 2017-03-29 Respiratory Rate 20 2017-03-29 BMI 21.25 kg/m2 2017-03-29 Blood pressure systolic 108 mmHg 2017-03-29 Blood pressure diastolic 64 mmHg 2017-03-29 MEDICATIONS Medication Instructions Dosage Frequency Start Date End Date Duration S tatus PredniSONE 10 mg Orally twice a day 1 tablet 12h March,March, 05 days Active Crestor 40 mg Orally Once a day 1 tablet 24h March, Active Aspirin 81 mg take 1 tablet (81 mg) by oral route once daily Nov, Active Toprol XL 25 mg Orally Once a day take 1 tablet (25 mg ) by oral route once daily 24h March, Active Viibryd 40 mg Orally Once a day 1 tablet 24h Oct, 90 days Active Atorvastatin Calcium 10 mg Orally Once a day 1 tablet 24h 2015 30 day(s) Active RESULTS No Results PROCEDURES Procedure Date Ordered Result Body Site DEXAMETHASONE 4MG/ML (PER 1 MG) March 29, 2017 DEPO MEDROL 40 MG/ML March 29, 2017 THER/PROPH/DIAG INJ, SC/IM March 29, 2017 IMMUNIZATIONS Vaccine Route Administration Date Status DEXAMETHASONE 4MG/ML (PER 1 MG) IM Intramuscular March 29, 2017 Administered DEPO MEDROL 40 MG/ML IM Intramuscular March 29, 2017 Administer ed MEDICAL (GENERAL) HISTORY Type Description Date Medical [...]
--- OUTSIDE RECORDS SUMMARY | 2020-05-31 11:51 | XMS REPORT ---
Author Author Jeane Hawk Organization [facility] Address [address] [place] [address] Care Team Providers [facility] Assistant Name Role Phone joshuaJOVANI GUTIERREZ Unavailable PROBLEMS Type Condition ICD9-CM Code [id number] Code Onset Dates Condition S tatus SNOMED Code Problem Atherosclerotic heart diseas e of [place] coronary artery without angina pectoris I25.10 Active 278053312 Problem Dysthymia (or depressive neurosis) F34.1 Active 94415341 Problem Hypercholesterolemia with hypertriglyceridemia E78 .2 Active 469752067 Problem Cannabis use disorder, mild, abuse F12.10 Active 47615967 Problem Alcohol use disorder, moderate, in sustained remission F10.21 Active 56138420 Problem Lumbago with sciatica, unspecified side M54.40 Active 186162537 Problem Right wrist tendonitis M77.8 Active [id number] Problem Severe episode of recurrent major depressive disorder, without psychotic features F33.2 Active 28477028 Problem Cigarette nicotine dependence without complication F17.210 Active 49900571 Problem Grief F43.20 Active 81941165 Problem Depression F32.9 Active 84291509 Problem Iron deficiency anemia, unspecified iron deficiency an emia type D50.9 Active 99365883 Problem Environmental allergies Z91.09 Active 897058367 Problem Anxiety F41.9 Active 70654559 Problem Coronary atherosclerosis due to lipid rich plaque I25.83 Active [id number] ALLERGIES No Information ENCOUNTERS Encounter Location Date Diagnosis [facility] [address] [facility] [id number] [address] [place] [phone] March, [facility] [address] [facility] [id number] [address] [place] [phone] 14 Dec, 2017 Severe episode of recurrent major depressive disorder, without psychotic features F33.2 ; Alcohol use disorder, moderate, in sustained remission F10.21 and Cannabis use disorder, mild, abuse F12.10 [facility] [address] [place] [id number] [address] [place] [phone] 12 Dec, 2017 Severe episode of recurrent major depressive disorder, without psychotic features F33.2 [facility] [address] [place] [id number] [address] [place] [phone] Nov, [place] [address] [place] [id number] [place] [address] Nov, Atherosclerotic heart diseas e of [place] coronary artery without angina pectoris I25.10 ; Hypercholesterolemia with hypertriglyceridemia E78.2 ; Depression F32.9 and Cigarette nicotine dependence without complication F17.210 [place] [address] [place] [id number] [address] [place] [phone] Oct, [place] [address] [place] [id number] [address] [place] [phone] Jul, [place] [address] [place] [id number] [address] [place] [phone] Jun, [place] [address] [place] [id number] [address] [place] [address] Apr, Pain in thoracic spine M54.6 and Lumbago with sciatica, unspecified side M54.40 [place] [address] [place] [id number] [address] [place] [address] March, [place] [address] [place] [id number] [address] [place] [address] March, Depression F32.9 [place] [address] [place] [id number] [address] [place] [address] March, Anxiety F41.9 ; Depression F 32.9 ; Atherosclerotic heart disease of [place] coronary artery without angina pectoris I25.10 ; Hypercholesterolemia with hypertriglyceridemia E78.2 ; Right wrist tendonitis M77.8 and Environmental allergies Z91.09 [facility] [address] [id number] [place] [id number] Dec, [place] [address] [facility] [id number] [address] [place] [phone] Nov, Iron deficiency anemia, unsp ecified iron deficiency anemia type D50.9 ; Anxiety F41.9 ; Dysthymia (or depressive neurosis) F34.1 and Hypercholesterolemia with hypertriglyceridemia E78.2 [place] [address] [facility] [id number] [address] [place] [phone] Oct, [place] [address] [facility] [id number] [place] [phone] 08 Oct, 2016 [place] [address] [facility] [id number] [address] [place] [phone] 02 Oct, 2016 Dysthymia (or depressive sherice rosis) F34.1 ; Atherosclerotic heart disease of [place] coronary artery without angina pectoris I25.10 ; Coronary atherosclerosis due to lipid rich plaque I25.83 ; Hypercholesterolemia with hypertriglyceridemia E78.2 ; Iron deficiency anemia, unspecified iron deficiency anemia type D50.9 ; Hospital discharge follow-up Z09 ; History of PID Z87.42 ; Environmental allergies Z91.09 and Dysuria R30.0 [place] [address] [facility] [id number] [place] [phone] Sep, [place] [address] [place] [id number] [place] [phone] Sep, [place] [address] [place] [id number] [address] [place] [address] Aug, Dysthymia F34.1 and Anxiety F41.9 [place] [address] [place] [id number] [address] [place] [address] March, Coronary artery disease invo lving [place] coronary artery, angina presence unspecified, unspecified whether [place] or transplanted heart I25.10 ; Bipolar 1 disorder, depressed F31.9 ; Anxiety F41.9 and Dysthymia F34.1 [place] [address] [place] [id number] [address] [place] [phone] Feb, Depression F32.9 and Stomach pain R10.9 [place] [address] [address] 10 Jan, 2016 Hyperlipidemia 272.4 [place] [address] [address] 17 Dec, 2015 [place] [address] [address] 11 Dec, 2015 Major depressive disorder, r ecurrent episode, unspecified 296.30 ; Anxiety F41.9 ; Grief F43.20 and Dysthymia F34.1 [place] [address] [address] Dec, Anxiety F41.9 and Grief F43. 20 [place] [address] [address] Oct, Insomnia, unspecified G47.00 and Anxiety F41.9 [place] [address] [address] Oct, Dysthymia F34.1 ; Right shou lder pain M25.511 ; Sciatica, right M54.31 and Iron deficiency anemia, unspecified iron deficiency anemia type D50.9 [place] [address] [address] Sep, [place] [address] [address] Sep, Grief F43.20 [place] [address] [address] Sep, [place] [address] [address] 05 Sep, 2015 [place] [address] [address] Sep, Hyperlipidemia E78.5 ; CAD ( coronary artery disease) I25.10 and HTN (hypertension) I10 [place] [address] [place] [id number] [address] [place] [address] Aug, Allergic rhinitis, unspecifi ed allergic rhinitis type J30.9 [facility] [address] [facility] [id number] [address] [place] [phone] Aug, Left-sided low back pain wit h right-sided sciatica M54.41 and Hyperlipidemia, unspecified hyperlipidemia E78.5 [facility] [address] [facility] [id number] [place] [phone] Aug, Neck pain M54.2 and Low back pain M54.5 [facility] [address] [facility] [id number] [address] [place] [phone] Jun, [facility] [address] [place] [id number] [place] [phone] Jun, [facility] [address] [address] Jun, CAD (coronary artery disease ) 414.00 ; Hyperlipidemia 272.4 and Anemia 285.9 [facility] [address] [facility] [id number] [address] [place] [address] Feb, [facility] [address] [place] [id number] [address] [place] [address] Feb, [facility] [address] [place] [id number] [address] [place] [address] Jan, [facility] [address] [facility] [id number] [address] [place] [phone] Jan, [facility] [address] [facility] [id number] [address] [place] [phone] Jan, [facility] [address] [facility] [id number] [address] [place] [phone] Jan, [facility] [address] [place] [id number] [address] [place] [phone] Dec, [facility] [address] [facility] [id number] [address] [place] [phone] Dec, 2014 [facility] [address] [id number] [address] [place] [address], [place] [address] Dec, 2014 [facility] [address] [id number] [address] [place] [address], [place] [address] Dec, 2014 [facility] [address] [id number] [address] [place] [address], [place] [address] Dec, 2014 [facility] [address] [id number] [address] [place] [address], [place] [address] Dec, 2014 [facility] [address] [id number] [address] [place] [address], [place] [address] Dec, 2014 [facility] [address] [place] [address] [id number] [address] [place] [address], [place] [address] Dec, 2014 [facility] [address] [id number] [address] [place] [address], [place] [address] Dec, [facility] [address] [id number] [address] [place] [address], [place] [address] Dec, [facility] [address] [id number] [address] [place] [address], [place] [address] Dec, [facility] [address] [id number] [address] [place] [address], [place] [address] Dec, [facility] [address] [place] [address] [id number] [address] [place] [address], [place] [address] Nov, [facility] [address] [place] [address] [id number] [address] [place] [address], [place] [address] Nov, [facility] [address] [id number] [address] [place] [address], [place] [address] Nov, [facility] [address] [id number] [address] [place] [address], [place] [address] Nov, [facility] [address] [place] [address] [id number] [address] [place] [phone] Oct, [facility] [address] [id number] [address] [place] [address], [place] [address] Oct, [facility] [address] [id number] [address] [place] [address], [place] [address] Sep, [facility] [address] [id number] [address] [place] [address], [place] [address] Sep, [facility] [address] [id number] [address] [place] [address], [place] [address] Aug, [facility] [address] [id number] [address] [place] [address], [place] [address] Aug, [facility] [address] [id number] [address] [place] [address], [place] [address] 30 Jul, 2014 [facility] [address] [id number] [address] [place] [address], [place] [address] 30 Jul, 2014 [facility] [address] [id number] [address] [place] [address], [place] [address] 16 Jul, 2014 [facility] [address] [id number] [address] [place] [address], [place] [address] 16 Jul, 2014 [facility] [address] [id number] [address] [place] [address], [place] [address] 15 Jul, 2014 [facility] [address] [id number] [address] [place] [address], [place] [address] 12 Jul, 2014 [facility] [address] [id number] [address] [place] [address], [place] [address] 12 Jul, 2014 [facility] [address] [id number] [address] [place] [address], [place] [address] 11 Jul, 2014 [facility] [address] [id number] [address] [place] [address], [place] [address] 11 Jul, 2014 [facility] [address] [id number] [address] [place] [address], [place] [address] 10 Jul, 2014 [facility] [address] [id number] [facility] [place] [address] Jul, [facility] [address] [id number] [address] [place] [address], [place] [address] Jul, [facility] [address] [id number] [address] [place] [address], [place] [address] Jul, [facility] [address] [id number] [address] [place] [address], [place] [address] Jun, [facility] [address] [id number] [address] [place] [address], [place] [address] Jun, [facility] [address] [id number] [address] [place] [address], [place] [address] Jun, [facility] [address] [id number] [address] [place] [address], [place] [address] Jun, [facility] [address] [id number] [address] [place] [address], [place] [address] Jun, [facility] [address] [id number] [address] [place] [address], [place] [address] Jun, [facility] [address] [id number] [address] [place] [address], [place] [address] Jun, [facility] [address] [id number] [address] [place] [address], [place] [address] Jun, [facility] [address] [id number] [address] [place] [address], [place] [address] May, [facility] [address] [id number] [address] [place] [address], [place] [address] May, [facility] [address] [id number] [address] [place] [address], [place] [address] Apr, [facility] [address] [id number] [address] [place] [address], [place] [address] Apr, [facility] [address] [id number] [address] [place] [address], [place] [address] Apr, [facility] [address] [id number] [address] [place] [address], [place] [address] Apr, [facility] [address] [id number] [address] [place] [address], [place] [address] March, [facility] [address] [id number] [address] [place] [address], [place] [address] March, [facility] [address] [id number] [address] [place] [address], [place] [address] March, [facility] [address] [id number] [address] [place] [address], [place] [address] March, [facility] [address] [id number] [address] [place] [address], [place] [address] March, [facility] [address] [id number] [address] [place] [address], [place] [address] March, [facility] [address] [id number] [address] [place] [address], [place] [address] March, [facility] [address] [id number] [address] [place] [address], [place] [address] March, [facility] [address] [id number] [address] [place] [address], [place] [address] March, [facility] [address] [id number] [address] [place] [address], [place] [address] March, [facility] [address] [id number] [address] [place] [address], [place] [address] March, [facility] [address] [id number] [address] [place] [address], [place] [address] Nov, [facility] [address] [id number] [address] [place] [address], [place] [address] Nov, [facility] [address] [id number] [address] [place] [address], [place] [address] Nov, [facility] [address] [id number] [place] [address] Oct, [facility] [address] [id number] [address] [place] [address], [place] [address] Oct, [facility] [address] [facility] [id number] [address] [place] [address] Aug, [facility] [address] [facility] [id number] [address] [place] [address] Aug, [facility] [place] [address] [id number] [place] [id number] Jun, [facility] [place] [address] [id number] [place] [id number] Apr, [facility] [address] [id number] [address] [place] [address], [place] [address] Apr, [facility] [address] [facility] [id number] [address] [place] [address], [place] [address] Apr, [facility] [place] [address] [id number] [place] [id number] March, [facility] [place] [address] [id number] [place] [id number] Feb, [facility] [place] [address] [id number] [place] [id number] Jan, [facility] [address] [facility] [id number] [address] [place] [address] Jan, [facility] [address] [facility] [id number] [address] [place] [phone] Jan, [facility] [address] [id number] [address] [place] [address], [place] [address] Jan, [facility] [address] [id number] [place] [id number] Dec, [facility] [place] [address] [id number] [place] [id number] Dec, [facility] [address] [facility] [id number] [address] [place] [address] Dec, [facility] [address] [id number] [address] [place] [address] Dec, [facility] [address] [id number] [address] [place] [address], [place] [address] Dec, [facility] [address] [id number] [address] [place] [address], [place] [address] Nov, [facility] [address] [id number] [address] [place] [address], [place] [address] Nov, [facility] [place] [address] [id number] [place] [id number] Nov, [facility] [address] [id number] [address] [place] [address], [place] [address] Nov, [facility] [place] [address] [id number] [place] [id number] Nov, [facility] [place] [address] [id number] [place] [id number] Nov, [facility] [place] [address] [id number] [place] [id number] Oct, [facility] [place] [address] [id number] [place] [id number] Oct, [facility] [address] [id number] [address] [place] [address], [place] [address] Oct, [facility] [address] [id number] [address] [place] [address] Oct, [facility] [address] [id number] [address] [place] [address] Oct, [facility] [address] [id number] [address] [place] [address] Sep, [facility] [address] [id number] [address] [place] [phone] Sep, [facility] [place] [address] [id number] [place] [id number] Sep, [facility] [place] [address] [id number] [place] [id number] Sep, [facility] [place] [address] [id number] [place] [id number] Sep, [facility] [address] [facility] [id number] [address] [place] [address] Sep, [facility] [address] [facility] [id number] [address] [place] [address] Aug, [facility] [place] [address] [id number] [place] [id number] Aug, [facility] [address] [facility] [id number] [address] [place] [address] Aug, [facility] [place] [address] [id number] [place] [id number] Jul, [facility] [place] [address] [id number] [place] [id number] Jul, [facility] [place] [address] [id number] [place] [id number] Jun, [facility] [place] [address] [id number] [place] [id number] May, [facility] [place] [address] [id number] [place] [id number] Feb, [facility] [place] [address] [id number] [place] [id number] Feb, [facility] [place] [address] [id number] [place] [id number] Feb, [facility] [place] [address] [id number] [place] [id number] Dec, [facility] [place] [address] [id number] [place] [id number] Dec, [facility] [address] [facility] [id number] [address] [place] [phone] Oct, [facility] [address] [facility] [id number] [address] [place] [phone] Sep, [facility] [address] [facility] [id number] [address] [place] [id number] 10 Sep, 2011 [facility] [address] [id number] [address] [place] [id number] Sep, [facility] [address] [id number] [address] [place] [id number] Sep, [facility] [address] [id number] [address] [place] [phone] March, [facility] [address] [id number] [address] [place] [phone] Sep, [facility] [address] [id number] [address] [place] [phone] Jul, [facility] [address] [id number] [address] [place] [phone] May, [facility] [address] [id number] [address] [place] [id number] Jan, [facility] [address] [id number] [address] [place] [phone] Sep, [facility] [address] [id number] [address] [place] [phone] Aug, IMMUNIZATIONS No Known Immunizations SOCIAL HISTORY Never Assessed REASON FOR VISIT PALS IN-Viibryd PLAN OF CARE VITAL SIGNS MEDICATIONS Unknown [...]
--- OUTSIDE RECORDS SUMMARY | 2020-05-31 11:52 | XMS REPORT | Continuity of Care Document ---
Author Organization Unknown Address Unknown Phone Unavailable Allergies Active Description Code Type Severity Reaction Onset Reported/Identified Relationship to Patient Clinical Status Yes MEDROL (RICH) SEVERE SEVERE Yes MEDROL (RICH) SEVERE SIDE EFFECT Yes STEROIDS STEROIDS Mo derate UNCONTROLLED LON 12/29/2012 Yes Medrol Drug Allergy N/A N/A 04/09/2014 Yes methylprednisolone [id number] Drug Allergy Unknown uncontrolled mu 06/2020 Medications Medication Packaging Start Date St op Date Route Dosage Sig MECLIZINE TAB 25 MG (ANTIVERT) MG 10/18/2017 10/18/2017 PRN ONCE HYDROXYZINE TAB 25 MG (ATARAX) MG 10/18/2017 10/21/2017 PRN TID KETOROLAC VIAL INJ 30 MG/CC (TORADOL VIAL) MG 09/07/2019 09/07/2019 PRN ONCE ORPHENADRINE INJ 60 MG/2CC (NORFLEX) MG 09/07/2019 09/07/2019 ONCE&1340 ACETAMINOPHEN ORAL TABLET 325mg(Tylenol) MG 09/07/2019 09/07/2019 ONCE&1440 Problems Date Dx Coded Attending Type Code Diagnosis Diagnosed By 08/31/2008 ARCHIE WAGGONER, XOCHITL V58. 69 MEDICATION HIGH RISK 08/31/2008 XOCHITL ALMANZA MD V58. 69 MEDICATION HIGH RISK 08/31/2008 XOCHITL ALMANZA MD V58. 69 MEDICATION HIGH RISK 08/31/2008 BIBIANA JONES MD V58.6 9 MEDICATION HIGH RISK 08/31/2008 XOCHITL ALMANZA MD V58. 69 MEDICATION HIGH RISK 08/31/2008 V58.69 MED ICATION HIGH RISK 08/31/2008 XOCHITL ALMANZA MD V58. 69 MEDICATION HIGH RISK 08/31/2008 V58.69 MED ICATION HIGH RISK 08/31/2008 XOCHITL ALMANZA MD V58. 69 MEDICATION HIGH RISK 08/31/2008 NIKA WOLFF APRN S V58.69 MEDICATION HIGH RISK 08/31/2008 MARIELLA AGRISCIENCE TECHNOLOGY INSTRUCTOR, NIKA S V58.69 MEDICATION HIGH RISK 08/31/2008 MARIELLA AGRISCIENCE TECHNOLOGY INSTRUCTOR, NIKA S V58.69 MEDICATION HIGH RISK 08/31/2008 JESSICA AGRISCIENCE TECHNOLOGY INSTRUCTOR, CHANELLE A V58.69 MEDICATION HIGH RISK 08/31/2008 MARIELLA AGRISCIENCE TECHNOLOGY INSTRUCTOR, NIKA S V58.69 MEDICATION HIGH RISK 08/31/2008 MARIELLA AGRISCIENCE TECHNOLOGY INSTRUCTOR, NIKA S V58.69 MEDICATION HIGH RISK 08/31/2008 MARIELLA AGRISCIENCE TECHNOLOGY INSTRUCTOR, NIKA S V58.69 MEDICATION HIGH RISK 07/23/2009 XOCHITL ALMANZA MD 414. 00 CORONARY ARTERY DISEASE 07/23/2009 XOCHITL ALMANZA MD 414. 00 CORONARY ARTERY DISEASE 07/23/2009 XOCHITL ALMANZA MD 414. 00 CORONARY ARTERY DISEASE 07/23/2009 BIBIANA JONES MD 414.0 0 CORONARY ARTERY DISEASE 07/23/2009 XOCHITL ALMANZA MD 414. 00 CORONARY ARTERY DISEASE 07/23/2009 414.00 COR ONARY ARTERY DISEASE 07/23/2009 XOCHITL ALMANZA MD 414. 00 CORONARY ARTERY DISEASE 07/23/2009 414.00 COR ONARY ARTERY DISEASE 07/23/2009 XOCHITL ALMANZA MD 414. 00 CORONARY ARTERY DISEASE 07/23/2009 MARIELLA AGRISCIENCE TECHNOLOGY INSTRUCTOR, NIKA S 414.00 CORONARY ARTERY DISEASE 07/23/2009 MARIELLA AGRISCIENCE TECHNOLOGY INSTRUCTOR, NIKA S 414.00 CORONARY ARTERY DISEASE 07/23/2009 MARIELLA AGRISCIENCE TECHNOLOGY INSTRUCTOR, NIKA S 414.00 CORONARY ARTERY DISEASE 07/23/2009 JESSICA AGRISCIENCE TECHNOLOGY INSTRUCTOR, CHANELLE A 414.00 CORONARY ARTERY DISEASE 07/23/2009 MARIELLA AGRISCIENCE TECHNOLOGY INSTRUCTOR, NIKA S 414.00 CORONARY ARTERY DISEASE 07/23/2009 MARIELLA AGRISCIENCE TECHNOLOGY INSTRUCTOR, NIKA S 414.00 CORONARY ARTERY DISEASE 07/23/2009 MARIELLA AGRISCIENCE TECHNOLOGY INSTRUCTOR, NIKA S 414.00 CORONARY ARTERY DISEASE 01/27/2010 XOCHITL ALMANZA MD 386. 19 OTHER AND UNSPECIFIED PERIPHERAL VERTIGO, OTHER 01/27/2010 XOCHITL ALMANZA MD 784. 0 headache 01/27/2010 XOCHITL ALMANZA MD V18. 0 FAMILY HISTORY OF DIABETES MELLITUS 01/27/2010 XOCHITL ALMANZA MD 386. 19 OTHER AND UNSPECIFIED PERIPHERAL VERTIGO, OTHER 01/27/2010 XOCHITL ALMANZA MD 784. 0 headache 01/27/2010 XOCHITL ALMANZA MD V18. 0 FAMILY HISTORY OF DIABETES MELLITUS 01/27/2010 XOCHITL ALMANZA MD 386. 19 OTHER AND UNSPECIFIED PERIPHERAL VERTIGO, OTHER 01/27/2010 XOCHITL ALMANZA MD 784. 0 headache 01/27/2010 XOCHITL ALMANZA MD V18. 0 FAMILY HISTORY OF DIABETES MELLITUS 01/27/2010 BIBIANA JONES MD 386.1 9 OTHER AND UNSPECIFIED PERIPHERAL VERTIGO, OTHER 01/27/2010 BIBIANA JONES MD 784.0 headache 01/27/2010 BIBIANA JONES MD V18.0 FAMILY HISTORY OF DIABETES MELLITUS 01/27/2010 XOCHITL ALMANZA MD 386. 19 OTHER AND UNSPECIFIED PERIPHERAL VERTIGO, OTHER 01/27/2010 XOCHITL ALMANZA MD 784. 0 headache 01/27/2010 XOCHITL ALMANZA MD V18. 0 FAMILY HISTORY OF DIABETES MELLITUS 01/27/2010 386.19 OTH ER AND UNSPECIFIED PERIPHERAL VERTIGO, OTHER 01/27/2010 784.0 headache 01/27/2010 V18.0 FAMI LY HISTORY OF DIABETES MELLITUS 01/27/2010 XOCHITL ALMANZA MD 386. 19 OTHER AND UNSPECIFIED PERIPHERAL VERTIGO, OTHER 01/27/2010 XOCHITL ALMANZA MD 784. 0 headache 01/27/2010 XOCHITL ALMANZA MD V18. 0 FAMILY HISTORY OF DIABETES MELLITUS 01/27/2010 386.19 OTH ER AND UNSPECIFIED PERIPHERAL VERTIGO, OTHER 01/27/2010 784.0 headache 01/27/2010 V18.0 FAMI LY HISTORY OF DIABETES MELLITUS 01/27/2010 XOCHITL ALMANZA MD 386. 19 OTHER AND UNSPECIFIED PERIPHERAL VERTIGO, OTHER 01/27/2010 XOCHITL ALMANZA MD 784. 0 headache 01/27/2010 XOCHITL ALMANZA MD V18. 0 FAMILY HISTORY OF DIABETES MELLITUS 01/27/2010 MARIELLA AGRISCIENCE TECHNOLOGY INSTRUCTOR, NIKA S 386.19 OTHER AND UNSPECIFIED PERIPHERAL VERTIGO, OTHER 01/27/2010 MARIELLA AGRISCIENCE TECHNOLOGY INSTRUCTOR, NIKA S 784.0 headache 01/27/2010 MARIELLA AGRISCIENCE TECHNOLOGY INSTRUCTOR, NIKA S V18.0 FAMILY HISTORY OF DIABETES MELLITUS 01/27/2010 MARIELLA AGRISCIENCE TECHNOLOGY INSTRUCTOR, NIKA S 386.19 OTHER AND UNSPECIFIED PERIPHERAL VERTIGO, OTHER 01/27/2010 MARIELLA AGRISCIENCE TECHNOLOGY INSTRUCTOR, NIKA S 784.0 headache 01/27/2010 MARIELLA AGRISCIENCE TECHNOLOGY INSTRUCTOR, NIKA S V18.0 FAMILY HISTORY OF DIABETES MELLITUS 01/27/2010 MARIELLA AGRISCIENCE TECHNOLOGY INSTRUCTOR, NIKA S 386.19 OTHER AND UNSPECIFIED PERIPHERAL VERTIGO, OTHER 01/27/2010 MARIELLA AGRISCIENCE TECHNOLOGY INSTRUCTOR, NIKA S 784.0 headache 01/27/2010 MARIELLA AGRISCIENCE TECHNOLOGY INSTRUCTOR, NIKA S V18.0 FAMILY HISTORY OF DIABETES MELLITUS 01/27/2010 JESSICA AGRISCIENCE TECHNOLOGY INSTRUCTOR, CHANELLE A 386.19 OTHER AND UNSPECIFIED PERIPHERAL VERTIGO, OTHER 01/27/2010 JESSICA AGRISCIENCE TECHNOLOGY INSTRUCTOR, CHANELLE A 78 4.0 headache 01/27/2010 JESSICA AGRISCIENCE TECHNOLOGY INSTRUCTOR, CHANELLE A V1 8.0 FAMILY HISTORY OF DIABETES MELLITUS 01/27/2010 MARIELLA AGRISCIENCE TECHNOLOGY INSTRUCTOR, NIKA S 386.19 OTHER AND UNSPECIFIED PERIPHERAL VERTIGO, OTHER 01/27/2010 MARIELLA AGRISCIENCE TECHNOLOGY INSTRUCTOR, NIKA S 784.0 headache 01/27/2010 MARIELLA AGRISCIENCE TECHNOLOGY INSTRUCTOR, NIKA S V18.0 FAMILY HISTORY OF DIABETES MELLITUS 01/27/2010 MARIELLA AGRISCIENCE TECHNOLOGY INSTRUCTOR, NIKA S 386.19 OTHER AND UNSPECIFIED PERIPHERAL VERTIGO, OTHER 01/27/2010 MARIELLA AGRISCIENCE TECHNOLOGY INSTRUCTOR, NIKA S 784.0 headache 01/27/2010 MARIELLA AGRISCIENCE TECHNOLOGY INSTRUCTOR, NIKA S V18.0 FAMILY HISTORY OF DIABETES MELLITUS 01/27/2010 MARIELLA AGRISCIENCE TECHNOLOGY INSTRUCTOR, NIKA S 386.19 OTHER AND UNSPECIFIED PERIPHERAL VERTIGO, OTHER 01/27/2010 MARIELLA AGRISCIENCE TECHNOLOGY INSTRUCTOR, NIKA S 784.0 headache 01/27/2010 MARIELLA AGRISCIENCE TECHNOLOGY INSTRUCTOR, NIKA S V18.0 FAMILY HISTORY OF DIABETES MELLITUS 06/10/2010 ARCHIE WAGGONER, XOCHITL 354. 0 CARPAL TUNNEL SYNDROME 06/10/2010 ARCHIE WAGGONER, XOCHITL 530. 81 ESOPHAGEAL REFLUX 06/10/2010 ARCHIE WAGGONER, XOCHITL 354. 0 CARPAL TUNNEL SYNDROME 06/10/2010 ARCHIE WAGGONER, XOCHITL 530. 81 ESOPHAGEAL REFLUX 06/10/2010 ARCHIE WAGGONER, XOCHITL 354. 0 CARPAL TUNNEL SYNDROME 06/10/2010 ARCHIE WAGGONER, XOCHITL 530. 81 ESOPHAGEAL REFLUX 06/10/2010 ROBERT WAGGONER, BIBIANA 354.0 CARPAL TUNNEL SYNDROME 06/10/2010 ROBERT WAGGONER, BIBIANA 530.8 1 ESOPHAGEAL REFLUX 06/10/2010 ARCHIE WAGGONER, XOCHITL 354. 0 CARPAL TUNNEL SYNDROME 06/10/2010 ARCHIE WAGGONER, XOCHITL 530. 81 ESOPHAGEAL REFLUX 06/10/2010 354.0 CARP AL TUNNEL SYNDROME 06/10/2010 530.81 ESO PHAGEAL REFLUX 06/10/2010 ARCHIE WAGGONER, XOCHITL 354. 0 CARPAL TUNNEL SYNDROME 06/10/2010 ARCHIE WAGGONER, XOCHITL 530. 81 ESOPHAGEAL REFLUX 06/10/2010 354.0 CARP AL TUNNEL SYNDROME 06/10/2010 530.81 ESO PHAGEAL REFLUX 06/10/2010 ARCHIE WAGGONER, XOCHITL 354. 0 CARPAL TUNNEL SYNDROME 06/10/2010 ARCHIE WAGGONER, XOCHITL 530. 81 ESOPHAGEAL REFLUX 06/10/2010 MARIELLA MANNING, NIKA S 354.0 CARPAL TUNNEL SYNDROME 06/10/2010 MARIELLA MANNING, NIKA S 530.81 ESOPHAGEAL REFLUX 06/10/2010 MARIELLA MANNING, NIKA S 354.0 CARPAL TUNNEL SYNDROME 06/10/2010 MARIELLA MANNING, NIKA S 530.81 ESOPHAGEAL REFLUX 06/10/2010 MARIELLA MANNING, NIKA S 354.0 CARPAL TUNNEL SYNDROME 06/10/2010 MARIELLA AGRISCIENCE TECHNOLOGY INSTRUCTOR, NIKA S 530.81 ESOPHAGEAL REFLUX 06/10/2010 JESSICA AGRISCIENCE TECHNOLOGY INSTRUCTOR, CHANELLE A 35 4.0 CARPAL TUNNEL SYNDROME 06/10/2010 JESSICA MANNING, CHANELLE A 530.81 ESOPHAGEAL REFLUX 06/10/2010 MARIELLA MANNING, NIKA S 354.0 CARPAL TUNNEL SYNDROME 06/10/2010 MARIELLA FERNÁNDEZN, NIKA S 530.81 ESOPHAGEAL REFLUX 06/10/2010 MARIELLA FERNÁNDEZN, NIKA S 354.0 CARPAL TUNNEL SYNDROME 06/10/2010 MARIELLA AGRISCIENCE TECHNOLOGY INSTRUCTOR, NIKA S 530.81 ESOPHAGEAL REFLUX 06/10/2010 MARIELLA MANNING, NIKA S 354.0 CARPAL TUNNEL SYNDROME 06/10/2010 MARIELLA MANNING, NIKA S 530.81 ESOPHAGEAL REFLUX 07/15/2010 Ot 989.5 07/15/2010 Ot E000.8 07/15/2010 Ot E016.1 07/15/2010 Ot E849.0 07/15/2010 Ot E905.3 08/08/2010 ARCHIE WAGGONER, XOCHITL 272. 4 DYSLIPIDEMIA 08/08/2010 ARCHIE WAGGONER, XOCHITL 272. 4 DYSLIPIDEMIA 08/08/2010 ARCHIE WAGGONER, XOCHITL 272. 4 DYSLIPIDEMIA 08/08/2010 BIBIANA JONES MD 272.4 DYSLIPIDEMIA 08/08/2010 XOCHITL ALMANZA MD 272. 4 DYSLIPIDEMIA 08/08/2010 272.4 DYSL IPIDEMIA 08/08/2010 XOCHITL ALMANZA MD 272. 4 DYSLIPIDEMIA 08/08/2010 272.4 DYSL IPIDEMIA 08/08/2010 ARCHIE WAGGONER, XOCHITL 272. 4 DYSLIPIDEMIA 08/08/2010 MARIELLA AGRISCIENCE TECHNOLOGY INSTRUCTOR, NIKA S 272.4 DYSLIPIDEMIA 08/08/2010 MARIELLA AGRISCIENCE TECHNOLOGY INSTRUCTOR, NIKA S 272.4 DYSLIPIDEMIA 08/08/2010 MARIELLA AGRISCIENCE TECHNOLOGY INSTRUCTOR, NIKA S 272.4 DYSLIPIDEMIA 08/08/2010 JESSICA AGRISCIENCE TECHNOLOGY INSTRUCTOR, CHANELLE A 27 2.4 DYSLIPIDEMIA 08/08/2010 MARIELLA AGRISCIENCE TECHNOLOGY INSTRUCTOR, NIKA S 272.4 DYSLIPIDEMIA 08/08/2010 MARIELLA AGRISCIENCE TECHNOLOGY INSTRUCTOR, NIKA S 272.4 DYSLIPIDEMIA 08/08/2010 MARIELLA AGRISCIENCE TECHNOLOGY INSTRUCTOR, NIKA S 272.4 DYSLIPIDEMIA 03/26/2011 Ot 079.99 03/26/2011 Ot 272.4 03/26/2011 Ot 285.9 03/26/2011 Ot 305.20 03/26/2011 Ot 414.01 03/26/2011 Ot 611.71 03/26/2011 Ot 729.1 03/26/2011 Ot 780.64 03/26/2011 Ot 784.0 03/26/2011 Ot 786.50 03/26/2011 Ot 787.02 03/26/2011 Ot V01.89 03/26/2011 Ot V15.81 04/02/2011 XOCHITL ALMANZA MD 285. 9 ANEMIA NORMOCHROMIC, NORMOCYTIC 04/02/2011 XOCHITL ALMANZA MD 285. 9 ANEMIA NORMOCHROMIC, NORMOCYTIC 04/02/2011 XOCHITL ALMANZA MD 285. 9 ANEMIA NORMOCHROMIC, NORMOCYTIC 04/02/2011 BIBIANA JONES MD 285.9 ANEMIA NORMOCHROMIC, NORMOCYTIC 04/02/2011 XOCHITL ALMANZA MD 285. 9 ANEMIA NORMOCHROMIC, NORMOCYTIC 04/02/2011 285.9 ANEM IA NORMOCHROMIC, NORMOCYTIC 04/02/2011 ARCHIE WAGGONER, XOCHITL 285. 9 ANEMIA NORMOCHROMIC, NORMOCYTIC 04/02/2011 285.9 ANEM IA NORMOCHROMIC, NORMOCYTIC 04/02/2011 ARCHIE WAGGONER, XOCHITL 285. 9 ANEMIA NORMOCHROMIC, NORMOCYTIC 04/02/2011 ZEFERINO WOLFF APRNA S 285.9 ANEMIA NORMOCHROMIC, NORMOCYTIC 04/02/2011 MARIELLA MANNING, NIKA S 285.9 ANEMIA NORMOCHROMIC, NORMOCYTIC 04/02/2011 MARIELLA MANNING, NIKA S 285.9 ANEMIA NORMOCHROMIC, NORMOCYTIC 04/02/2011 JESSICA MANNING, CHANELLE A 28 5.9 ANEMIA NORMOCHROMIC, NORMOCYTIC 04/02/2011 MARIELLA MANNING NIKA S 285.9 ANEMIA NORMOCHROMIC, NORMOCYTIC 04/02/2011 SHAYAN WOLFF APRNNDA S 285.9 ANEMIA NORMOCHROMIC, NORMOCYTIC 04/02/2011 SHAYAN WOLFF APRNNDA S 285.9 ANEMIA NORMOCHROMIC, NORMOCYTIC 09/23/2011 ARCHIE WAGGONER, XOCHITL 724. 79 COCCYDYNIA 09/23/2011 ARCHIE WAGGONER, XOCHITL 724. 79 COCCYDYNIA 09/23/2011 XOCHITL ALMANZA MD 724. 79 COCCYDYNIA 09/23/2011 BIBIANA JONES MD 724.7 9 COCCYDYNIA 09/23/2011 XOCHITL ALMANZA MD 724. 79 COCCYDYNIA 09/23/2011 724.79 SHERIDAN CYDYNIA 09/23/2011 XOCHITL ALMANZA MD 724. 79 COCCYDYNIA 09/23/2011 724.79 SHERIDAN CYDYNIA 09/23/2011 XOCHITL ALMANZA MD 724. 79 COCCYDYNIA 09/23/2011 SHAYAN WOLFF APRNNDA S 724.79 COCCYDYNIA 09/23/2011 SHAYAN WOLFF APRNNDA S 724.79 COCCYDYNIA 09/23/2011 SHAYAN WOLFF APRNNDA S 724.79 COCCYDYNIA 09/23/2011 JESSICA MANNING, CHANELLE A 724.79 COCCYDYNIA 09/23/2011 MARIELLA MANNING NIKA S 724.79 COCCYDYNIA 09/23/2011 NIKA WOLFF APRN S 724.79 COCCYDYNIA 09/23/2011 NIKA WOLFF APRN S 724.79 COCCYDYNIA 02/25/2012 XOCHITL ALMANZA MD 782. 0 tingling (paresthesia) 02/25/2012 XOCHITL ALMANZA MD 786. 09 difficulty breathing (dyspnea) 02/25/2012 XOCHITL ALMANZA MD 796. 2 Blood Pressure Isolated Elevated 02/25/2012 XOCHITL ALMANZA MD 782. 0 tingling (paresthesia) 02/25/2012 XOCHITL ALMANZA MD 786. 09 difficulty breathing (dyspnea) 02/25/2012 XOCHITL ALMANZA MD 796. 2 Blood Pressure Isolated Elevated 02/25/2012 XOCHITL ALMANZA MD 782. 0 tingling (paresthesia) 02/25/2012 XOCHITL ALMANZA MD 786. 09 difficulty breathing (dyspnea) 02/25/2012 XOHCITL ALMANZA MD 796. 2 Blood Pressure Isolated Elevated 02/25/2012 BIBIANA JONES MD 782.0 tingling (paresthesia) 02/25/2012 BIBIANA JONES MD 786.0 9 difficulty breathing (dyspnea) 02/25/2012 BIBIANA JONES MD 796.2 Blood Pressure Isolated Elevated 02/25/2012 XOCHITL ALMANZA MD 782. 0 tingling (paresthesia) 02/25/2012 XOCHITL ALMANZA MD 786. 09 difficulty breathing (dyspnea) 02/25/2012 XOCHITL ALMANZA MD 796. 2 Blood Pressure Isolated Elevated 02/25/2012 782.0 ting ling (paresthesia) 02/25/2012 786.09 dif ficulty breathing (dyspnea) 02/25/2012 796.2 Bloo d Pressure Isolated Elevated 02/25/2012 XOCHITL ALMANZA MD 782. 0 tingling (paresthesia) 02/25/2012 XOCHITL ALMANZA MD 786. 09 difficulty breathing (dyspnea) 02/25/2012 XOCHITL ALMANZA MD 796. 2 Blood Pressure Isolated Elevated 02/25/2012 782.0 ting ling (paresthesia) 02/25/2012 786.09 dif ficulty breathing (dyspnea) 02/25/2012 796.2 Bloo d Pressure Isolated Elevated 02/25/2012 XOCHITL ALMANZA MD 782. 0 tingling (paresthesia) 02/25/2012 XOCHITL ALMANZA MD 786. 09 difficulty breathing (dyspnea) 02/25/2012 XOCHITL ALMANZA MD 796. 2 Blood Pressure Isolated Elevated 02/25/2012 MARIELLA AGRISCIENCE TECHNOLOGY INSTRUCTOR, NIKA S 782.0 tingling (paresthesia) 02/25/2012 MARIELLA AGRISCIENCE TECHNOLOGY INSTRUCTOR, NIKA S 786.09 difficulty breathing (dyspnea) 02/25/2012 MARIELLA AGRISCIENCE TECHNOLOGY INSTRUCTOR, NIKA S 796.2 Blood Pressure Isolated Elevated 02/25/2012 MARIELLA AGRISCIENCE TECHNOLOGY INSTRUCTOR, NIKA S 782.0 tingling (paresthesia) 02/25/2012 MARIELLA AGRISCIENCE TECHNOLOGY INSTRUCTOR, NIKA S 786.09 difficulty breathing (dyspnea) 02/25/2012 MARIELLA AGRISCIENCE TECHNOLOGY INSTRUCTOR, NIKA S 796.2 Blood Pressure Isolated Elevated 02/25/2012 MARIELLA AGRISCIENCE TECHNOLOGY INSTRUCTOR, NIKA S 782.0 tingling (paresthesia) 02/25/2012 MARIELLA AGRISCIENCE TECHNOLOGY INSTRUCTOR, NIKA S 786.09 difficulty breathing (dyspnea) 02/25/2012 MARIELLA AGRISCIENCE TECHNOLOGY INSTRUCTOR, NIKA S 796.2 Blood Pressure Isolated Elevated 02/25/2012 JESSICA AGRISCIENCE TECHNOLOGY INSTRUCTOR, CHANELLE A 78 2.0 tingling (paresthesia) 02/25/2012 JESSICA AGRISCIENCE TECHNOLOGY INSTRUCTOR, CHANELLE A 786.09 difficulty breathing (dyspnea) 02/25/2012 JESSICA AGRISCIENCE TECHNOLOGY INSTRUCTOR, CHANELLE A 79 6.2 Blood Pressure Isolated Elevated 02/25/2012 MARIELLA AGRISCIENCE TECHNOLOGY INSTRUCTOR, NIKA S 782.0 TINGLING (PARESTHESIA) 02/25/2012 MARIELLA AGRISCIENCE TECHNOLOGY INSTRUCTOR, NIKA S 786.09 DIFFICULTY BREATHING (DYSPNEA) 02/25/2012 MARIELLA AGRISCIENCE TECHNOLOGY INSTRUCTOR, NIKA S 796.2 BLOOD PRESSURE ISOLATED ELEVATED 02/25/2012 MARIELLA AGRISCIENCE TECHNOLOGY INSTRUCTOR, NIKA S 782.0 TINGLING (PARESTHESIA) 02/25/2012 MARIELLA AGRISCIENCE TECHNOLOGY INSTRUCTOR, NIKA S 786.09 DIFFICULTY BREATHING (DYSPNEA) 02/25/2012 MARIELLA AGRISCIENCE TECHNOLOGY INSTRUCTOR, NIKA S 796.2 BLOOD PRESSURE ISOLATED ELEVATED 02/25/2012 MARIELLA AGRISCIENCE TECHNOLOGY INSTRUCTOR, NIKA S 782.0 TINGLING (PARESTHESIA) 02/25/2012 NIKA WOLFF APRN 786.09 DIFFICULTY BREATHING (DYSPNEA) 02/25/2012 NIKA WOLFF APRN 796.2 BLOOD PRESSURE ISOLATED ELEVATED 07/11/2012 XOCHITL ALMANZA MD 719. 46 PAIN IN JOINT INVOLVING LOWER LEG 07/11/2012 XOCHITL ALMANZA MD 71Ana. 47 PAIN IN JOINT INVOLVING ANKLE AND FOOT 07/11/2012 XOCHITL ALMANZA MD 71Ana. 46 PAIN IN JOINT INVOLVING LOWER LEG 07/11/2012 XOCHITL ALMANZA MD. 47 PAIN IN JOINT INVOLVING ANKLE AND FOOT 07/11/2012 XOCHITL ALMANZA MD. 46 PAIN IN JOINT INVOLVING LOWER LEG 07/11/2012 XOCHITL ALMANZA MD. 47 PAIN IN JOINT INVOLVING ANKLE AND FOOT 07/11/2012 BIBIANA JONES MD 71Ana.4 6 PAIN IN JOINT INVOLVING LOWER LEG 07/11/2012 BIBIANA JONES MD 71Ana.4 7 PAIN IN JOINT INVOLVING ANKLE AND FOOT 07/11/2012 XOCHITL ALMANZA MD 71Ana. 46 PAIN IN JOINT INVOLVING LOWER LEG 07/11/2012 XOCHITL ALMANZA MD. 47 PAIN IN JOINT INVOLVING ANKLE AND FOOT 07/11/2012 719.46 REKHA N IN JOINT INVOLVING LOWER LEG 07/11/2012 719.47 REKHA N IN JOINT INVOLVING ANKLE AND FOOT 07/11/2012 XOCHITL ALMANZA MD 71Ana. 46 PAIN IN JOINT INVOLVING LOWER LEG 07/11/2012 XOCHITL ALMANZA MD 71Ana. 47 PAIN IN JOINT INVOLVING ANKLE AND FOOT 07/11/2012 719.46 REKHA N IN JOINT INVOLVING LOWER LEG 07/11/2012 719.47 REKHA N IN JOINT INVOLVING ANKLE AND FOOT 07/11/2012 XOCHITL ALMANZA MD 71Ana. 46 PAIN IN JOINT INVOLVING LOWER LEG 07/11/2012 XOCHITL ALMANZA MD 71Ana. 47 PAIN IN JOINT INVOLVING ANKLE AND FOOT 07/11/2012 NIKA WOLFF APRN 719.46 PAIN IN JOINT INVOLVING LOWER LEG 07/11/2012 NIKA WOLFF APRN 719.47 PAIN IN JOINT INVOLVING ANKLE AND FOOT 07/11/2012 NIKA WOLFF APRN 719.46 PAIN IN JOINT INVOLVING LOWER LEG 07/11/2012 NIKA WOLFF APRN 719.47 PAIN IN JOINT INVOLVING ANKLE AND FOOT 07/11/2012 ZEFERINO WOLFF APRNA S 719.46 PAIN IN JOINT INVOLVING LOWER LEG 07/11/2012 ZEFERINO WOLFF APRNA S 719.47 PAIN IN JOINT INVOLVING ANKLE AND FOOT 07/11/2012 JESSICARAMÓN MANNING CHANELLE A 719.46 PAIN IN JOINT INVOLVING LOWER LEG 07/11/2012 JESSICARAMÓN MANNING CHANELLE A 719.47 PAIN IN JOINT INVOLVING ANKLE AND FOOT 07/11/2012 ZEFERINO WOLFF APRNA S 719.46 PAIN IN JOINT INVOLVING LOWER LEG 07/11/2012 ZEFERINO WOLFF APRNA S 719.47 PAIN IN JOINT INVOLVING ANKLE AND FOOT 07/11/2012 ZEFERINO WOLFF APRNA S 719.46 PAIN IN JOINT INVOLVING LOWER LEG 07/11/2012 ZEFERINO WOLFF APRNA S 719.47 PAIN IN JOINT INVOLVING ANKLE AND FOOT 07/11/2012 ZEFERINO WOLFF APRNA S 719.46 PAIN IN JOINT INVOLVING LOWER LEG 07/11/2012 SHAYAN WOLFF APRNNDA S 719.47 PAIN IN JOINT INVOLVING ANKLE AND FOOT 09/27/2012 XOCHITL ALMANZA MD 722. 52 LUMBAR DISC DEGENERATION L4 - L5 09/27/2012 XOCHITL ALMANZA MD 722. 52 LUMBAR DISC DEGENERATION L4 - L5 09/27/2012 XOCHITL ALMANZA MD 722. 52 LUMBAR DISC DEGENERATION L4 - L5 09/27/2012 ROBERT WAGGONER, BIBIANA 722.5 2 LUMBAR DISC DEGENERATION L4 - L5 09/27/2012 XOCHITL ALMANZA MD 722. 52 LUMBAR DISC DEGENERATION L4 - L5 09/27/2012 722.52 LUM BAR DISC DEGENERATION L4 - L5 09/27/2012 XOCHITL ALMANZA MD 722. 52 LUMBAR DISC DEGENERATION L4 - L5 09/27/2012 722.52 INT ERVERTEBRAL DISC DEGENERATION - LUMBAR 09/27/2012 XOCHITL ALMANZA MD 722. 52 INTERVERTEBRAL DISC DEGENERATION - LUMBAR 09/27/2012 NIKA WOLFF APRN S 722.52 INTERVERTEBRAL DISC DEGENERATION - LUMBAR 09/27/2012 NIKA WOLFF APRN S 722.52 INTERVERTEBRAL DISC DEGENERATION - LUMBAR 09/27/2012 NIKA WOLFF APRN S 722.52 INTERVERTEBRAL DISC DEGENERATION - LUMBAR 09/27/2012 JESSICA APRN, CHANELLE A 722.52 INTERVERTEBRAL DISC DEGENERATION - LUMBAR 09/27/2012 MARIELLA MANNING, NIKA S 722.52 INTERVERTEBRAL DISC DEGENERATION - LUMBAR 09/27/2012 MARIELLA AGRISCIENCE TECHNOLOGY INSTRUCTOR, NIKA S 722.52 INTERVERTEBRAL DISC DEGENERATION - LUMBAR 09/27/2012 MARIELLA MANNING, NIKA S 722.52 INTERVERTEBRAL DISC DEGENERATION - LUMBAR 11/24/2012 XOCHITL ALMANZA MD 780. 52 insomnia 11/24/2012 BIBIANA JONES MD 780.5 2 insomnia 11/24/2012 XOCHITL ALMANZA MD 780. 52 insomnia 11/24/2012 780.52 ins omnia 11/24/2012 XOCHITL ALMANZA MD 780. 52 insomnia 11/24/2012 780.52 ins omnia 11/24/2012 XOCHITL ALMANZA MD 780. 52 insomnia 11/24/2012 MARIELLA AGRISCIENCE TECHNOLOGY INSTRUCTOR, NIKA S 780.52 insomnia 11/24/2012 MARIELLA MANNING, NIKA S 780.52 insomnia 11/24/2012 MARIELLA AGRISCIENCE TECHNOLOGY INSTRUCTOR, NIKA S 780.52 insomnia 11/24/2012 JESSICA MANNING, CHANELLE A 780.52 insomnia 11/24/2012 MARIELLA AGRISCIENCE TECHNOLOGY INSTRUCTOR, NIKA S 780.52 insomnia 11/24/2012 MARIELLA MANNING, NIKA S 780.52 insomnia 11/24/2012 MARIELLA AGRISCIENCE TECHNOLOGY INSTRUCTOR, NIKA S 780.52 insomnia 12/13/2012 BIBIANA JONES MD 789.0 3 abdominal pain in the right lower belly (RLQ) 12/13/2012 XOCHITL ALMANZA MD 789. 03 abdominal pain in the right lower belly (RLQ) 12/13/2012 789.03 abd ominal pain in the right lower belly (RLQ) 12/13/2012 XOCHITL ALMANZA MD 789. 03 abdominal pain in the right lower belly (RLQ) 12/13/2012 789.03 abd ominal pain in the right lower belly (RLQ) 12/13/2012 XOCHITL ALMANZA MD 789. 03 abdominal pain in the right lower belly (RLQ) 12/13/2012 ZEFERINO WOLFF APRNA S 789.03 abdominal pain in the right lower belly (RLQ) 12/13/2012 MARIELLA AGRISCIENCE TECHNOLOGY INSTRUCTOR, NIKA S 789.03 abdominal pain in the right lower belly (RLQ) 12/13/2012 MARIELLA AGRISCIENCE TECHNOLOGY INSTRUCTOR, NIKA S 789.03 abdominal pain in the right lower belly (RLQ) 12/13/2012 JESSICA AGRISCIENCE TECHNOLOGY INSTRUCTOR, CHANELLE A 789.03 abdominal pain in the right lower belly (RLQ) 12/13/2012 MARIELLA AGRISCIENCE TECHNOLOGY INSTRUCTOR, NIKA S 789.03 ABDOMINAL PAIN IN THE RIGHT LOWER BELLY (RLQ) 12/13/2012 MARIELLA AGRISCIENCE TECHNOLOGY INSTRUCTOR, NIKA S 789.03 ABDOMINAL PAIN IN THE RIGHT LOWER BELLY (RLQ) 12/13/2012 MARIELLA AGRISCIENCE TECHNOLOGY INSTRUCTOR, NIKA S 789.03 ABDOMINAL PAIN IN THE RIGHT LOWER BELLY (RLQ) 12/29/2012 Ot 574.20 CHO LELITHIASIS NOS 12/29/2012 Ot 620.2 OVAR TRAE CYST NEC/NOS 12/29/2012 Ot 625.9 FEM GENITAL SYMPTOMS NOS 12/29/2012 Ot 789.03 ABD OMINAL PAIN, RIGHT LOWER QUADRANT 01/30/2013 575.11 CHO LECYSTITIS, CHRONIC 01/30/2013 XOCHITL ALMANZA MD 575. 11 CHOLECYSTITIS, CHRONIC 01/30/2013 575.11 CHO LECYSTITIS, CHRONIC 01/30/2013 ARCHIE WAGGONER, XOCHITL 575. 11 CHOLECYSTITIS, CHRONIC 01/30/2013 MARIELLA AGRISCIENCE TECHNOLOGY INSTRUCTOR, NIKA S 575.11 CHOLECYSTITIS, CHRONIC 01/30/2013 MARIELLA AGRISCIENCE TECHNOLOGY INSTRUCTOR, NIKA S 575.11 CHOLECYSTITIS, CHRONIC 01/30/2013 MARIELLA AGRISCIENCE TECHNOLOGY INSTRUCTOR, NIKA S 575.11 CHOLECYSTITIS, CHRONIC 01/30/2013 JESSICA AGRISCIENCE TECHNOLOGY INSTRUCTOR, CHANELLE A 575.11 CHOLECYSTITIS, CHRONIC 01/30/2013 MARIELLA AGRISCIENCE TECHNOLOGY INSTRUCTOR, NIKA S 575.11 CHOLECYSTITIS, CHRONIC 01/30/2013 MARIELLA AGRISCIENCE TECHNOLOGY INSTRUCTOR, NIKA S 575.11 CHOLECYSTITIS, CHRONIC 01/30/2013 MARIELLA AGRISCIENCE TECHNOLOGY INSTRUCTOR, NIKA S 575.11 CHOLECYSTITIS, CHRONIC 02/02/2013 XOCHITL ALMANZA MD 799. 21 feeling nervous 02/02/2013 799.21 fee ling nervous 02/02/2013 ARCHIE WAGGONER, XOCHITL 799. 21 feeling nervous 02/02/2013 NIKA WOLFF APRN S 799.21 feeling nervous 02/02/2013 MARIELLA AGRISCIENCE TECHNOLOGY INSTRUCTOR, NIKA S 799.21 feeling nervous 02/02/2013 MARIELLA AGRISCIENCE TECHNOLOGY INSTRUCTOR, NIKA S 799.21 feeling nervous 02/02/2013 JESSICA AGRISCIENCE TECHNOLOGY INSTRUCTOR, CHANELLE A 799.21 feeling nervous 02/02/2013 MARIELLA AGRISCIENCE TECHNOLOGY INSTRUCTOR, NIKA S 799.21 FEELING NERVOUS 02/02/2013 MARIELLA AGRISCIENCE TECHNOLOGY INSTRUCTOR, NIKA S 799.21 FEELING NERVOUS 02/02/2013 ZEFERINO WOLFF APRNA S 799.21 FEELING NERVOUS 02/22/2013 Ot 272.0 PURE HYPERCHOLESTEROLEM 02/22/2013 Ot 311 DEPRES SIVE DISORDER NEC 02/22/2013 Ot 574.20 CHO LELITHIASIS NOS 02/22/2013 Ot 620.2 OVAR TRAE CYST NEC/NOS 02/22/2013 Ot V58.69 OTH MED,LT,CURRENT USE 12/02/2013 BART WEST MD Ot 250. 00 DIAB ADRIANA WO COMPL, TYPE II OR UNSPEC TY 12/02/2013 BART WEST MD Ot 305. 20 CANNABIS ABUSE-UNSPEC 12/02/2013 BART WEST MD Ot 401. 9 HYPERTENSION NOS 12/02/2013 BART WEST MD Ot 411. 1 INTERMED CORONARY SYND 12/02/2013 BART WEST MD Ot 414. 01 CORONARY ATHEROSCLEROSIS OF [place] CORON 12/02/2013 BART WEST MD Ot V17. 49 FAMILY HISTORY OF OTHER CARDIOVASCULAR D 12/02/2013 BART WEST MD Ot V58. 69 OTH MED,LT,CURRENT USE 12/02/2013 MEGAN SALDAÑA Ot 789.00 ABDOMINAL PAIN, UNSPECIFIED SITE 12/02/2013 MEGAN SALDAÑA Ot 789.30 ABDOMINAL/PELVIC SWELLING,MASS/LUMP UNSP 12/07/2013 NIKA WOLFF APRN S 625.8 OTHER SPECIFIED SYMPTOMS ASSOCIATED WITH FEMALE GENITA L ORGANS 12/07/2013 NIKA WOLFF APRN S 625.8 OTHER SPECIFIED SYMPTOMS ASSOCIATED WITH FEMALE GENITA L ORGANS 12/07/2013 NIKA WOLFF APRN S 625.8 OTHER SPECIFIED SYMPTOMS ASSOCIATED WITH FEMALE GENITA L ORGANS 12/07/2013 JESSICACHANELLE Kendall APRN A 62 5.8 OTHER SPECIFIED SYMPTOMS ASSOCIATED WITH FEMALE GENITAL ORGANS 12/07/2013 NIKA WOLFF APRN S 625.8 OTHER SPECIFIED SYMPTOMS ASSOCIATED WITH FEMALE GENITA L ORGANS 12/07/2013 NIKA WOLFF APRN S 625.8 OTHER SPECIFIED SYMPTOMS ASSOCIATED WITH FEMALE GENITA L ORGANS 12/07/2013 NIKA WOLFF APRN S 625.8 OTHER SPECIFIED SYMPTOMS ASSOCIATED WITH FEMALE GENITA L ORGANS 03/24/2014 BART WEST MD Ot 272. 4 HYPERLIPIDEMIA NEC/NOS 03/24/2014 BART WEST MD Ot 305. 20 CANNABIS ABUSE-UNSPEC 03/24/2014 BART WEST MD Ot 413. 9 ANGINA PECTORIS NEC/NOS 03/24/2014 BART WEST MD Ot 414. 01 CORONARY ATHEROSCLEROSIS OF [place] CORON 03/24/2014 BART WEST MD Ot 786. 59 CHEST PAIN NEC 03/24/2014 BART WEST MD Ot V17. 3 FAM HX-ISCHEM HEART DIS 03/24/2014 BART WEST MD Ot V45. 82 PERCUTANEOUS TRANSLUM CORON ANGIOPLASTY 04/09/2014 NIKA WOLFF APRN S 309.0 ADJUSTMENT DISORDER WITH DEPRESSED MOOD 04/09/2014 NIKA WOLFF APRN S 786.2 COUGH 04/09/2014 NIKA WOLFF APRN S V70.0 EXAM - ROUTINE H&P 04/09/2014 NIKA WOLFF APRN S 309.0 ADJUSTMENT DISORDER WITH DEPRESSED MOOD 04/09/2014 NIKA WOLFF APRN S 786.2 COUGH 04/09/2014 NIKA WOLFF APRN S V70.0 EXAM - ROUTINE H&P 04/09/2014 CHANELLE LOPEZ APRN A 30 9.0 ADJUSTMENT DISORDER WITH DEPRESSED MOOD 04/09/2014 CHANELLE LOPEZ APRN A 78 6.2 COUGH 04/09/2014 CHANELLE LOPEZ APRN A V7 0.0 EXAM - ROUTINE H&P 04/09/2014 MARIELLA AGRISCIENCE TECHNOLOGY INSTRUCTOR, NIKA S 309.0 ADJUSTMENT DISORDER WITH DEPRESSED MOOD 04/09/2014 MARIELLA MANNING, NIKA S 786.2 COUGH 04/09/2014 SHAYAN WOLFF APRNNDA S V70.0 EXAM - ROUTINE H&P 04/09/2014 MARIELLA MANNING, NIKA S 309.0 ADJUSTMENT DISORDER WITH DEPRESSED MOOD 04/09/2014 MARIELLA MANNING NIKA S 786.2 COUGH 04/09/2014 SHAYAN WOLFF APRNNDA S V70.0 EXAM - ROUTINE H&P 04/09/2014 MARIELLA MANNING, NIKA S 309.0 ADJUSTMENT DISORDER WITH DEPRESSED MOOD 04/09/2014 SHAYAN WOLFF APRNNDA S 786.2 COUGH 04/09/2014 SHAYAN WOLFF APRNNDA S V70.0 EXAM - ROUTINE H&P 04/11/2014 SHAYAN WOLFF APRNNDA S 280.9 ANEMIA, IRON DEFICIENCY 04/11/2014 MARIELLA MANNING NIKA S 280.9 ANEMIA, IRON DEFICIENCY 04/11/2014 CHANELLE LOPEZ APRN A 28 0.9 ANEMIA, IRON DEFICIENCY 04/11/2014 MARIELLA MANNING, NIKA S 280.9 ANEMIA, IRON DEFICIENCY 04/11/2014 MARIELLA MANNING, NIKA S 280.9 ANEMIA, IRON DEFICIENCY 04/11/2014 MARIELLA MANNING NIKA S 280.9 ANEMIA, IRON DEFICIENCY 08/01/2014 CHANELLE LOPEZ APRN A 611.72 LUMP OR MASS IN BREAST 08/01/2014 MARIELLA MANNING NIKA S 611.72 LUMP OR MASS IN BREAST 08/01/2014 MARIELLA MANNING NIKA S 611.72 LUMP OR MASS IN BREAST 08/01/2014 MARIELLA MANNING NIKA S 611.72 LUMP OR MASS IN BREAST 08/02/2014 CHANELLE LOPEZ APRN A V72.31 FILLING STATION LABORER EXAM, ROUTINE 08/02/2014 CHANELLE LOPEZ APRN A V73.81 HPV SCREENING 08/02/2014 CHANELLE LOPEZ APRN A V76.10 BREAST CANCER SCREENING 08/02/2014 JESSICA AGRISCIENCE TECHNOLOGY INSTRUCTOR, CHANELLE A V7 6.2 CERVICAL CANCER SCREENING (PAP SMEAR) 08/02/2014 MARIELLA AGRISCIENCE TECHNOLOGY INSTRUCTOR, NIKA S V72.31 FILLING STATION LABORER EXAM, ROUTINE 08/02/2014 MARIELLA AGRISCIENCE TECHNOLOGY INSTRUCTOR, NIKA S V73.81 HPV SCREENING 08/02/2014 MARIELLA AGRISCIENCE TECHNOLOGY INSTRUCTOR, NIKA S V76.10 BREAST CANCER SCREENING 08/02/2014 MARIELLA AGRISCIENCE TECHNOLOGY INSTRUCTOR, NIKA S V76.2 CERVICAL CANCER SCREENING (PAP SMEAR) 08/02/2014 MARIELLA AGRISCIENCE TECHNOLOGY INSTRUCTOR, NIKA S V72.31 FILLING STATION LABORER EXAM, ROUTINE 08/02/2014 MARIELLA AGRISCIENCE TECHNOLOGY INSTRUCTOR, NIKA S V73.81 HPV SCREENING 08/02/2014 MARIELLA AGRISCIENCE TECHNOLOGY INSTRUCTOR, NIKA S V76.10 BREAST CANCER SCREENING 08/02/2014 MARIELLA AGRISCIENCE TECHNOLOGY INSTRUCTOR, NIKA S V76.2 CERVICAL CANCER SCREENING (PAP SMEAR) 08/02/2014 MARIELLA AGRISCIENCE TECHNOLOGY INSTRUCTOR, NIKA S V72.31 FILLING STATION LABORER EXAM, ROUTINE 08/02/2014 MARIELLA AGRISCIENCE TECHNOLOGY INSTRUCTOR, NIKA S V73.81 HPV SCREENING 08/02/2014 MARIELLA AGRISCIENCE TECHNOLOGY INSTRUCTOR, NIKA S V76.10 BREAST CANCER SCREENING 08/02/2014 MARIELLA AGRISCIENCE TECHNOLOGY INSTRUCTOR, NIKA S V76.2 CERVICAL CANCER SCREENING (PAP SMEAR) 09/07/2014 BART WEST MD Ot 250. 00 DIAB ADRIANA WO COMPL, TYPE II OR UNSPEC TY 09/07/2014 BART WEST MD Ot 272. 4 HYPERLIPIDEMIA NEC/NOS 09/07/2014 BART WEST MD Ot 300. 00 ANXIETY STATE NOS 09/07/2014 BART WEST MD Ot 305. 1 TOBACCO USE DISORDER 09/07/2014 BART WEST MD Ot 305. 20 CANNABIS ABUSE-UNSPEC 09/07/2014 BART WEST MD Ot 311 DEPRESSIVE DISORDER NEC 09/07/2014 BART WEST MD Ot 401. 9 HYPERTENSION NOS 09/07/2014 BART WEST MD Ot 414. 01 CORONARY ATHEROSCLEROSIS OF [place] CORON 09/07/2014 BART WEST MD Ot 780. 2 SYNCOPE AND COLLAPSE 09/07/2014 BART WEST MD Ot 780. 4 DIZZINESS AND GIDDINESS 09/07/2014 BART WEST MD Ot 786. 59 CHEST PAIN NEC 09/07/2014 BART WEST MD Ot 959. 01 HEAD INJURY, NOS 09/07/2014 BART WEST MD Ot E849 .0 ACCIDENT IN HOME 09/07/2014 BART WEST MD Ot E888 .9 FALL NOS 09/07/2014 BART WEST MD Ot V45. 82 PERCUTANEOUS TRANSLUM CORON ANGIOPLASTY 10/03/2014 NIKA WOLFF APRN S 296.30 MAJOR DEPRESSIVE AFFECTIVE DISORDER RECU RRENT EPISODE UNSPECIFIED DEGREE 10/03/2014 NIKA WOLFF APRN S 296.30 MAJOR DEPRESSIVE AFFECTIVE DISORDER RECU RRENT EPISODE UNSPECIFIED DEGREE 10/03/2014 NIKA WOLFF APRN S 296.30 MAJOR DEPRESSIVE AFFECTIVE DISORDER RECU RRENT EPISODE UNSPECIFIED DEGREE 11/01/2014 OLIVIER VILLALBA Ot 250.00 11/01/2014 OLIVIER VILLALBA Ot 401.9 11/01/2014 OLIVIER VILLALBA Ot 414.00 11/01/2014 OLIVIER VILLALBA Ot 786.50 11/20/2014 OLIVIER VILLALBA Ot 250.00 11/20/2014 OLIVIER VILLALBA Ot 401.9 11/20/2014 OLIVIER VILLALBA Ot 414.00 11/20/2014 OLIVIER VILLALBA Ot 786.50 12/13/2014 Ot 719.48 12/13/2014 Ot 724.79 12/13/2014 Ot 722.52 12/13/2014 Ot 724.79 12/13/2014 Ot 722.52 12/13/2014 Ot 574.20 12/13/2014 Ot 620.0 12/13/2014 Ot 789.03 12/13/2014 Ot 722.52 12/13/2014 Ot 574.20 12/13/2014 Ot V72.63 12/13/2014 Ot V74.8 12/13/2014 BART WEST MD Ot 305. 20 12/13/2014 BART WEST MD Ot 311 12/13/2014 BART WEST MD Ot 401. 9 12/13/2014 ALINE WAGGONER, BART Norman Ot 414. 00 12/13/2014 ALINE WAGGONER, BART Norman Ot V17. 3 12/13/2014 OLIVIER VILLALBA Ot 250.00 12/13/2014 OLIVIER VILLALBA Ot 401.9 12/13/2014 OLIVIER VILLALBA Ot 414.00 12/13/2014 OLIVIER VILLALBA Ot 786.50 12/13/2014 NIKA WOLFF Ot 610.1 12/13/2014 NIKA WOLFF Ot 611.71 12/13/2014 NIKA WOLFFP Ot 611.72 12/13/2014 DANAY SUAZO AGRISCIENCE TECHNOLOGY INSTRUCTOR Ot 844 .9 SPRAIN OF KNEE LEG NOS 12/13/2014 DANAY SUAZO AGRISCIENCE TECHNOLOGY INSTRUCTOR Ot 959 .7 LOWER LEG INJURY NOS 12/13/2014 DANAY SUAZO AGRISCIENCE TECHNOLOGY INSTRUCTOR Ot E000.8 OTHER EXTERNAL CAUSE STATUS 12/13/2014 DANAY SUAZO AGRISCIENCE TECHNOLOGY INSTRUCTOR Ot E849.0 ACCIDENT IN HOME 12/13/2014 DANAY SUAZO AGRISCIENCE TECHNOLOGY INSTRUCTOR Ot E884.9 FALL-1 LEVEL TO OTH NEC 12/13/2014 DANAY SUAZO AGRISCIENCE TECHNOLOGY INSTRUCTOR Ot E927.0 OVEREXERTION FROM SUDDEN STRENUOUS MOVEM 01/10/2015 NIKA WOLFF APRN S 368.9 UNSPECIFIED VISUAL DISTURBANCE 06/20/2015 Ot 719.48 06/20/2015 Ot 724.79 06/20/2015 Ot 722.52 06/20/2015 Ot 724.79 06/20/2015 Ot 722.52 06/20/2015 Ot 574.20 06/20/2015 Ot 620.0 06/20/2015 Ot 789.03 06/20/2015 Ot 722.52 06/20/2015 Ot 574.20 06/20/2015 Ot V72.63 06/20/2015 Ot V74.8 06/20/2015 BART WEST MD Ot 305. 20 06/20/2015 ALINE WAGGONER, BART Norman Ot 311 06/20/2015 BART WEST MD Ot 401. 9 06/20/2015 BART WEST MD Ot 414. 00 06/20/2015 ALINE WAGGONER, BART Norman Ot V17. 3 06/20/2015 ZHANE PA, OLIVIER K Ot 250.00 06/20/2015 ZHANE PA, OLIVIER K Ot 401.9 06/20/2015 ZHANE PA, OLIVIER K Ot 414.00 06/20/2015 ZHANE PA, OLIVIER K Ot 786.50 06/20/2015 NIKA WOLFFP Ot 610.1 06/20/2015 NIKA WOLFFP Ot 611.71 06/20/2015 NIKA WOLFFP Ot 611.72 01/26/2016 Ot 719.48 01/26/2016 Ot 724.79 01/26/2016 Ot 722.52 01/26/2016 Ot 724.79 01/26/2016 Ot 722.52 01/26/2016 Ot 574.20 01/26/2016 Ot 620.0 01/26/2016 Ot 789.03 01/26/2016 Ot 722.52 01/26/2016 Ot 574.20 01/26/2016 Ot V72.63 01/26/2016 Ot V74.8 01/26/2016 ALINE WAGGONER, BART Norman Ot 305. 20 01/26/2016 ALINE WAGGONER, BART Norman Ot 311 01/26/2016 ALINE WAGGONER, BART Norman Ot 401. 9 01/26/2016 ALINE WAGGONER, BART Norman Ot 414. 00 01/26/2016 ALINE WAGGONER, BART Norman Ot V17. 3 01/26/2016 ZHANE PA, OLIVIER K Ot 250.00 01/26/2016 ZHANE PA, OLIVIER K Ot 401.9 01/26/2016 ZHANE PA, OLIVIER K Ot 414.00 01/26/2016 ZHANE PA, OLIVIER K Ot 786.50 01/26/2016 NIKA WOLFFP Ot 610.1 01/26/2016 NIKA WOLFFP Ot 611.71 01/26/2016 NIKA WOLFFP Ot 611.72 01/26/2016 ALINE WAGGONER, BART Norman Ot 272. 4 01/26/2016 BART WEST MD Ot 401. 9 01/26/2016 BART WEST MD Ot 414. 00 01/26/2016 BART WEST MD Ot 786. 50 01/27/2016 AJAY VALDEZ DO Cheri Ot E86.0 DEHYDRATION 01/27/2016 AJAY VALDEZ DO Ot F10.10 ALCOHOL ABUSE, UNCOMPLICATED 01/27/2016 JOSÉ MIGUEL DAVID CAMAGROA K Ot F12.10 CANNABIS ABUSE, UNCOMPLICATED 01/27/2016 DAVID VALDEZ DOA K Ot F15.10 OTHER STIMULANT ABUSE, UNCOMPLICATED 01/27/2016 JOSÉ MIGUEL DAVID CAMARGOA K Ot F17.210 NICOTINE DEPENDENCE, CIGARETTES, UNCOMPL 01/27/2016 JOSÉ MIGUEL AJAY K Ot R42 DIZZINESS AND GIDDINESS 01/27/2016 JOSÉ MIGUEL AJAY K Ot R55 SYNCOPE AND COLLAPSE 03/19/2016 MIMI CAMARGO, RYAN L Ot F17.2 10 NICOTINE DEPENDENCE, CIGARETTES, UNCOMPL 03/19/2016 LE , RYAN L Ot R09.1 PLEURISY 03/20/2016 LE , RYAN L Ot F17.2 10 NICOTINE DEPENDENCE, CIGARETTES, UNCOMPL 03/20/2016 LE , RYAN L Ot R09.1 PLEURISY 03/21/2016 LE , RYAN L Ot F17.2 10 NICOTINE DEPENDENCE, CIGARETTES, UNCOMPL 03/21/2016 LE , RYAN L Ot R09.1 PLEURISY 04/06/2016 BART WEST MD Ot E11. 9 TYPE 2 DIABETES MELLITUS WITHOUT COMPLIC 04/06/2016 BART WEST MD Ot E78. 5 HYPERLIPIDEMIA, UNSPECIFIED 04/06/2016 BART WEST MD Ot F41. 8 OTHER SPECIFIED ANXIETY DISORDERS 04/06/2016 BART WEST MD Ot I10 ESSENTIAL (PRIMARY) HYPERTENSION 04/06/2016 BART WEST MD Ot I25.118 ATHSCL HEART DISEASE OF [place] COR ART W 04/06/2016 BART WEST MD Ot R55 SYNCOPE AND COLLAPSE 04/06/2016 BART WEST MD Ot Z79.899 OTHER EXPORT FREIGHT CLERK (CURRENT) DRUG THERAPY 04/08/2016 BART WEST MD Ot E11. 9 TYPE 2 DIABETES MELLITUS WITHOUT COMPLIC 04/08/2016 BART WEST MD Ot E78. 5 HYPERLIPIDEMIA, UNSPECIFIED 04/08/2016 BART WEST MD Ot F41. 8 OTHER SPECIFIED ANXIETY DISORDERS 04/08/2016 BART WEST MD Ot I10 ESSENTIAL (PRIMARY) HYPERTENSION 04/08/2016 BART WEST MD Ot I25.118 ATHSCL HEART DISEASE OF [place] COR ART W 04/08/2016 BART WEST MD Ot R55 SYNCOPE AND COLLAPSE 04/08/2016 BART WEST MD Ot Z79.899 OTHER EXPORT FREIGHT CLERK (CURRENT) DRUG THERAPY 10/10/2016 BART WEST MD Ot E11. 9 TYPE 2 DIABETES MELLITUS WITHOUT COMPLIC 10/10/2016 BART WEST MD Ot E78. 5 HYPERLIPIDEMIA, UNSPECIFIED 10/10/2016 BART WEST MD Ot F41. 8 OTHER SPECIFIED ANXIETY DISORDERS 10/10/2016 BART WEST MD Ot I10 ESSENTIAL (PRIMARY) HYPERTENSION 10/10/2016 BART WEST MD Ot I25.118 ATHSCL HEART DISEASE OF [place] COR ART W 10/10/2016 BART WEST MD Ot R55 SYNCOPE AND COLLAPSE 10/10/2016 BART WEST MD Ot Z79.899 OTHER HALFWAY (CURRENT) DRUG THERAPY 10/10/2016 BART WEST MD Ot E11. 9 TYPE 2 DIABETES MELLITUS WITHOUT COMPLIC 10/10/2016 BART WEST MD Ot E78. 5 HYPERLIPIDEMIA, UNSPECIFIED 10/10/2016 BART WEST MD Ot F41. 8 OTHER SPECIFIED ANXIETY DISORDERS 10/10/2016 BART WEST MD Ot I10 ESSENTIAL (PRIMARY) HYPERTENSION 10/10/2016 BART WEST MD Ot I25.118 ATHSCL HEART DISEASE OF [place] COR ART W 10/10/2016 BART WEST MD Ot R55 SYNCOPE AND COLLAPSE 10/10/2016 BART WEST MD Ot Z79.899 OTHER EXPORT FREIGHT CLERK (CURRENT) DRUG THERAPY 10/11/2016 MARIE QUEZADA MD Ot F17.210 NICOTINE DEPENDENCE, CIGARETTES, UNCOMPL 10/11/2016 MARIE QUEZADA MD Ot I25.10 ATHSCL HEART DISEASE OF [place] CORONARY 10/11/2016 MARIE QUEZADA MD Ot K21 .9 GASTRO-ESOPHAGEAL REFLUX DISEASE WITHOUT 10/11/2016 MARIE QUEZADA MD Ot N73 .9 FEMALE PELVIC INFLAMMATORY DISEASE, UNSP 10/11/2016 MARIE QUEZADA MD Ot N76 .0 ACUTE VAGINITIS 10/11/2016 MARIE QUEZADA MD Ot R10.11 RIGHT UPPER QUADRANT PAIN 10/11/2016 MARIE QUEZADA MD Ot Z23 ENCOUNTER FOR IMMUNIZATION 10/12/2016 Ot 719.48 ETTA NT PAIN-JT NEC 10/12/2016 Ot 724.79 DIS ORDER OF COCCYX NEC 10/12/2016 Ot 722.52 LUM B/LUMBOSAC DISC DEGEN 10/12/2016 Ot 724.79 DIS ORDER OF COCCYX NEC 10/12/2016 Ot 722.52 LUM B/LUMBOSAC DISC DEGEN 10/12/2016 Ot 574.20 CHO LELITHIASIS NOS 10/12/2016 Ot 620.0 FOLL ICULAR CYST OF OVARY 10/12/2016 Ot 789.03 ABD OMINAL PAIN, RIGHT LOWER QUADRANT 10/12/2016 Ot 722.52 LUM B/LUMBOSAC DISC DEGEN 10/12/2016 Ot 574.20 CHO LELITHIASIS NOS 10/12/2016 Ot V72.63 PRE -PROCEDURAL LABORATORY EXAMINATION 10/12/2016 Ot V74.8 SCRE EN-BACTERIAL DIS NEC 10/12/2016 BART WEST MD Ot 305. 20 CANNABIS ABUSE-UNSPEC 10/12/2016 BART WEST MD Ot 311 DEPRESSIVE DISORDER NEC 10/12/2016 BART WEST MD Ot 401. 9 HYPERTENSION NOS 10/12/2016 BART WEST MD Ot 414. 00 CORON ATHEROSCLER NOS TYPE VESSEL, NATIV 10/12/2016 BART WEST MD Ot V17. 3 FAM HX-ISCHEM HEART DIS 10/12/2016 OLIVIER VILLALBA Ot 250.00 DIAB ADRIANA WO COMPL, TYPE II OR UNSPEC TY 10/12/2016 OLIVIER VILLALBA Ot 401.9 HYPERTENSION NOS 10/12/2016 OLIVIER VILLALBA Ot 414.00 CORON ATHEROSCLER NOS TYPE VESSEL, NATIV 10/12/2016 OLIVIER VILLALBA Ot 786.50 CHEST PAIN NOS 10/12/2016 NIKA WOLFFP Ot 610.1 DIFFUS CYSTIC MASTOPATHY 10/12/2016 NIKA WOLFFP Ot 611.71 MASTODYNIA 10/12/2016 NIKA WOLFFP Ot 611.72 LUMP OR MASS IN BREAST 10/12/2016 BART WEST MD Ot 272. 4 HYPERLIPIDEMIA NEC/NOS 10/12/2016 BART WEST MD Ot 401. 9 HYPERTENSION NOS 10/12/2016 ABRT WEST MD Ot 414. 00 CORON ATHEROSCLER NOS TYPE VESSEL, NATIV 10/12/2016 BART WEST MD Ot 786. 50 CHEST PAIN NOS 10/12/2016 Ot 719.48 ETTA NT PAIN-JT NEC 10/12/2016 Ot 724.79 DIS ORDER OF COCCYX NEC 10/12/2016 Ot 722.52 LUM B/LUMBOSAC DISC DEGEN 10/12/2016 Ot 724.79 DIS ORDER OF COCCYX NEC 10/12/2016 Ot 722.52 LUM B/LUMBOSAC DISC DEGEN 10/12/2016 Ot 574.20 CHO LELITHIASIS NOS 10/12/2016 Ot 620.0 FOLL ICULAR CYST OF OV[place] 10/12/2016 Ot 789.03 ABD OMINAL PAIN, RIGHT LOWER QUADRANT 10/12/2016 Ot 722.52 LUM B/LUMBOSAC DISC DEGEN 10/12/2016 Ot 574.20 CHO LELITHIASIS NOS 10/12/2016 Ot V72.63 PRE -PROCEDURAL LABORATORY EXAMINATION 10/12/2016 Ot V74.8 SCRE EN-BACTERIAL DIS NEC 10/12/2016 BART WEST MD Ot 305. 20 CANNABIS ABUSE-UNSPEC 10/12/2016 BART WEST MD Ot 311 DEPRESSIVE DISORDER NEC 10/12/2016 BART WEST MD Ot 401. 9 HYPERTENSION NOS 10/12/2016 BART WEST MD Ot 414. 00 CORON ATHEROSCLER NOS TYPE VESSEL, NATIV 10/12/2016 BART WEST MD Ot V17. 3 FAM HX-ISCHEM HEART DIS 10/12/2016 OLIVIER VILLALBA Ot 250.00 DIAB ADRIANA WO COMPL, TYPE II OR UNSPEC TY 10/12/2016 OLIVIER VILLALBA Ot 401.9 HYPERTENSION NOS 10/12/2016 OLIVIER VILLALBA Ot 414.00 CORON ATHEROSCLER NOS TYPE VESSEL, NATIV 10/12/2016 OLIVIER VILLALBA Ot 786.50 CHEST PAIN NOS 10/12/2016 NIKA WOLFF Ot 610.1 DIFFUS CYSTIC MASTOPATHY 10/12/2016 NIKA WOLFF COMPOSITION ROLL MAKER AND CUTTER Ot 611.71 MASTODYNIA 10/12/2016 NIKA WOLFF COMPOSITION ROLL MAKER AND CUTTER Ot 611.72 LUMP OR MASS IN BREAST 10/12/2016 ALINE WAGGONER, BART Norman Ot 272. 4 HYPERLIPIDEMIA NEC/NOS 10/12/2016 BART WEST MD Ot 401. 9 HYPERTENSION NOS 10/12/2016 BART WEST MD Ot 414. 00 CORON ATHEROSCLER NOS TYPE VESSEL, NATIV 10/12/2016 BART WEST MD Ot 786. 50 CHEST PAIN NOS 11/30/2016 BREANA CASTELLANOS MD Ot F17.210 NICOTINE DEPENDENCE, CIGARETTES, UNCOMPL 11/30/2016 BREANA CASTELLANOS MD Ot J06.9 ACUTE UPPER RESPIRATORY INFECTION, UNSPE 11/30/2016 BREANA CASTELLANOS MD Ot J10.1 FLU DUE TO OTH IDENT INFLUENZA VIRUS W O 11/30/2016 BREANA CASTELLANOS MD Ot R05 COUGH 11/30/2016 BREANA CASTELLANOS MD Ot Z95.5 PRESENCE OF CORONARY ANGIOPLASTY IMPLANT 12/01/2016 BREANA CASTELLANOS MD Ot F17.210 NICOTINE DEPENDENCE, CIGARETTES, UNCOMPL 12/01/2016 BREANA CASTELLANOS MD Ot J06.9 ACUTE UPPER RESPIRATORY INFECTION, UNSPE 12/01/2016 BREANA CASTELLANOS MD Ot J10.1 FLU DUE TO OTH IDENT INFLUENZA VIRUS W O 12/01/2016 BREANA CASTELLANOS MD Ot R05 COUGH 12/01/2016 BREANA CASTELLANOS MD Ot Z95.5 PRESENCE OF CORONARY ANGIOPLASTY IMPLANT 12/14/2016 Ot 719.48 ETTA NT PAIN-JT NEC 12/14/2016 Ot 724.79 DIS ORDER OF COCCYX NEC 12/14/2016 Ot 722.52 LUM B/LUMBOSAC DISC DEGEN 12/14/2016 Ot 724.79 DIS ORDER OF COCCYX NEC 12/14/2016 Ot 722.52 LUM B/LUMBOSAC DISC DEGEN 12/14/2016 Ot 574.20 CHO LELITHIASIS NOS 12/14/2016 Ot 620.0 FOLL ICULAR CYST OF OVARY 12/14/2016 Ot 789.03 ABD OMINAL PAIN, RIGHT LOWER QUADRANT 12/14/2016 Ot 722.52 LUM B/LUMBOSAC DISC DEGEN 12/14/2016 Ot 574.20 CHO LELITHIASIS NOS 12/14/2016 Ot V72.63 PRE -PROCEDURAL LABORATORY EXAMINATION 12/14/2016 Ot V74.8 SCRE EN-BACTERIAL DIS NEC 12/14/2016 BART WEST MD Ot 305. 20 CANNABIS ABUSE-UNSPEC 12/14/2016 BART WEST MD Ot 311 DEPRESSIVE DISORDER NEC 12/14/2016 BART WEST MD Ot 401. 9 HYPERTENSION NOS 12/14/2016 BART WEST MD Ot 414. 00 CORON ATHEROSCLER NOS TYPE VESSEL, NATIV 12/14/2016 BART WEST MD Ot V17. 3 FAM HX-ISCHEM HEART DIS 12/14/2016 OLIVIER VILLALBA Ot 250.00 DIAB ADRIANA WO COMPL, TYPE II OR UNSPEC TY 12/14/2016 OLIVIER VILLALBA Ot 401.9 HYPERTENSION NOS 12/14/2016 OLIVIER VILLALBA Ot 414.00 CORON ATHEROSCLER NOS TYPE VESSEL, NATIV 12/14/2016 OLIVIER VILLALBA Ot 786.50 CHEST PAIN NOS 12/14/2016 NIKA WOLFF Ot 610.1 DIFFUS CYSTIC MASTOPATHY 12/14/2016 NIKA WOLFF Ot 611.71 MASTODYNIA 12/14/2016 NIKA WOLFF Ot 611.72 LUMP OR MASS IN BREAST 12/14/2016 BART WEST MD Ot 272. 4 HYPERLIPIDEMIA NEC/NOS 12/14/2016 BART WEST MD Ot 401. 9 HYPERTENSION NOS 12/14/2016 BART WEST MD Ot 414. 00 CORON ATHEROSCLER NOS TYPE VESSEL, NATIV 12/14/2016 BART WEST MD Ot 786. 50 CHEST PAIN NOS 03/08/2017 DANAY SUAZO APRN Ot I10 ESSENTIAL (PRIMARY) HYPERTENSION 03/08/2017 DANAY SUAZO APRN Ot I25.10 ATHSCL HEART DISEASE OF [place] CORONARY 03/08/2017 DANAY SUAZO APRN Ot M79.641 PAIN IN RIGHT HAND 03/08/2017 DANAY SUAZO APRN Ot Z95 .5 PRESENCE OF CORONARY ANGIOPLASTY IMPLANT 04/27/2017 DANAY SUAZO APRN Ot I10 ESSENTIAL (PRIMARY) HYPERTENSION 04/27/2017 DANAY SUAZO APRN Ot I25.10 ATHSCL HEART DISEASE OF [place] CORONARY 04/27/2017 DANAY SUAZO APRN Ot M79.641 PAIN IN RIGHT HAND 04/27/2017 DANAY SUAZO APRN Ot Z95 .5 PRESENCE OF CORONARY ANGIOPLASTY IMPLANT 05/26/2017 Ot 722.52 LUM B/LUMBOSAC DISC DEGEN 05/26/2017 Ot 574.20 CHO LELITHIASIS NOS 05/26/2017 Ot 620.0 FOLL ICULAR CYST OF OVARY 05/26/2017 Ot 789.03 ABD OMINAL PAIN, RIGHT LOWER QUADRANT 05/26/2017 Ot 722.52 LUM B/LUMBOSAC DISC DEGEN 05/26/2017 Ot 574.20 CHO LELITHIASIS NOS 05/26/2017 Ot V72.63 PRE -PROCEDURAL LABORATORY EXAMINATION 05/26/2017 Ot V74.8 SCRE EN-BACTERIAL DIS NEC 05/26/2017 BART WEST MD Ot 305. 20 CANNABIS ABUSE-UNSPEC 05/26/2017 BART WEST MD Ot 311 DEPRESSIVE DISORDER NEC 05/26/2017 BART WEST MD Ot 401. 9 HYPERTENSION NOS 05/26/2017 BART WEST MD Ot 414. 00 CORON ATHEROSCLER NOS TYPE VESSEL, NATIV 05/26/2017 BART WEST MD Ot V17. 3 FAM HX-ISCHEM HEART DIS 05/26/2017 OLIVIER VILLALBA Ot 250.00 DIAB ADRIANA WO COMPL, TYPE II OR UNSPEC TY 05/26/2017 OLIVIER VILLALBA Ot 401.9 HYPERTENSION NOS 05/26/2017 VEGA-EM PA, OLIVIER K Ot 414.00 CORON ATHEROSCLER NOS TYPE VESSEL, NATIV 05/26/2017 OLIVIER VILLALBA Ot 786.50 CHEST PAIN NOS 05/26/2017 NIKA WOLFF [employer] Ot 610.1 DIFFUS CYSTIC MASTOPATHY 05/26/2017 NIKA WOLFF [employer] Ot 611.71 MASTODYNIA 05/26/2017 NIKA WOLFF [employer] Ot 611.72 LUMP OR MASS IN BREAST 05/26/2017 ALINE WAGGONER, BART Norman Ot 272. 4 HYPERLIPIDEMIA NEC/NOS 05/26/2017 ALINE WAGGONER, BART Norman Ot 401. 9 HYPERTENSION NOS 05/26/2017 ALINE WAGGONER, BART Norman Ot 414. 00 CORON ATHEROSCLER NOS TYPE VESSEL, NATIV 05/26/2017 BART WEST MD Ot 786. 50 CHEST PAIN NOS 10/18/2017 Zelda Rhodes A 300.00 ANXIETY STATE, UNSPECIFIED 10/18/2017 Jone Rhodesya W 305.20 CANNABIS ABUSE, UNSPECIFIED USE 10/18/2017 Zelda Rhodes W F12.10 CANNABIS ABUSE, UNCOMPLICATED 10/18/2017 Zelda Rhodes A F41.9 ANXIETY DISORDER, UNSPECIFIED 11/03/2017 Danay Suazo 300.00 ANXIETY STATE, UNSPECIFIED 11/03/2017 Danay Suazo F41.9 ANXIETY DISORDER, UNSPECIFIED 09/07/2019 GARIMA VANG APRN W 357 .9 UNSPECIFIED INFLAMMATORY AND TOXIC NEUROPATHIES 09/07/2019 GARIMA VANG APRN W F12 .10 CANNABIS ABUSE, UNCOMPLICATED 09/07/2019 GARIMA VANG APRN W F41 .9 ANXIETY DISORDER, UNSPECIFIED 09/07/2019 GARIMA VANG APRN W G62 .9 POLYNEUROPATHY, UNSPECIFIED 10/05/2019 W 338.4 HEAD BUYER TOBACCO DANNA PAIN SYNDROME 10/05/2019 W 722.52 DEG ENERATION OF LUMBAR OR LUMBOSACRAL INTERVERTEBRAL DISC 10/05/2019 W 722.91 OTH ER AND UNSPECIFIED DISC DISORDER OF CERVICAL REGION 10/05/2019 W F12.10 CAN NABIS ABUSE, UNCOMPLICATED 10/05/2019 W F41.9 ANXI ETY DISORDER, UNSPECIFIED 10/05/2019 W G89.4 HEAD BUYER TOBACCO DANNA PAIN SYNDROME 10/05/2019 W M50.90 CER VICAL DISC DISORDER, UNSP, UNSPECIFIED CERVICAL REGION 10/05/2019 W M51.36 OTH ER INTERVERTEBRAL DISC DEGENERATION, LUMBAR REGION Procedures Code [place] [address] ROUT INE VENIPUNCTURE 12/13/2012 17295 UA L KIMBERLEE DIP 12/13/2012 66735 CBC 12/13/2012 51176 CMP 12/13/2012 [id number] GF R CALC (RESULT ONLY) 12/13/[address] A BDOMEN & PELVIS W/ & W/O CONTRAST 12/15/2012 47039 MRI SPINE (LUMBAR) W/O CONTRAST 12/15/2012 10795 XRAY ABDOMEN 2 VIEWS 12/15/2012 General S Torey Curiel 02/02/2013 Obstetric Stewart Lee 12/07/2013 22143 ROUT INE VENIPUNCTURE 04/09/2014 38106 XRAY CHEST 2 VIEW 04/09/2014 51459 SED/ ESR RATE (IN HOUSE) 04/09/2014 [id number] IM MATURE PLATELET FRACTION (RESULT ONLY) 04/10/2014 86864 CBC 04/10/2014 87368 RETI CULOCYTE COUNT 04/10/2014 [id number] AN EM JIC 04/10/2014 [id number] AN FERRIT 04/10/2014 [id number] HE MATOLOGY OTHER REPORT 04/11/2014 ANEMIAANA ANEMIA ANALYZER 04/11/2014 83889 ROUT INE VENIPUNCTURE 05/17/2014 Cardiolog Bart West 05/17/2014 84606 SED/ ESR RATE (IN HOUSE) 05/17/2014 09505 CBC 05/17/2014 08797 FERRITIN 05/17/2014 88831 ROUT INE VENIPUNCTURE 08/01/2014 79215 CBC 08/01/2014 50800 FERRITIN 08/01/2014 Q0091 PAP SMEAR OBTAIN SMEAR 08/02/2014 57782 PAP SMEAR 08/06/2014 87552 MAMM OGRAM DX, JIMENEZ 08/14/2014 35400 MAMM OGRAM DX, LEFT 12/31/2014 Lc Maki 12/31/2014 75903 ROUT INE VENIPUNCTURE 01/10/2015 01049 CBC 01/10/2015 [id number] GF R CALC (RESULT ONLY) 01/10/2015 36866 CMP 01/10/2015 Results Test Result Range Complete blood count (CBC) with automate d white blood cell (WBC) differential - 10/10/16 18:40 Blood leukocytes automated count (number/volume) 18.5 10*3/uL 4.3-11.0 Blood erythrocytes automated count (number/volume) 3.94 10*6/uL 4.35-5.85 Venous blood hemoglobin measurement (mass/volume) 12.9 g/dL 11.5-16.0 Blood hematocrit (volume fraction) 37 % 35-52 Automated erythrocyte mean corpuscular volume 94 [ foz_us] 80-99 Automated erythrocyte mean corpuscular h emoglobin (mass per erythrocyte) 33 pg 25-34 Automated erythrocyte mean corpuscular h emoglobin concentration measurement (mass/volume) 35 g/dL 32-36 Automated erythrocyte distribution width ratio 12. 5 % 10.0- 14.5 Automated blood platelet count (count/volume) 269 10*3/uL 130-400 Automated blood platelet mean volume measurement 10.6 [foz_us] 7.4-10.4 Automated blood neutrophils/100 leukocytes 79 % 42-75 Automated blood lymphocytes/100 leukocytes 12 % 12-44 Blood monocytes/100 leukocytes 9 % 0-12 Automated blood eosinophils/100 leukocytes 0 % 0-10 Automated blood basophils/100 leukocytes 0 % 0-10 Blood neutrophils automated count (number/volume) 14.6 10*3 1.8-7.8 Blood lymphocytes automated count (number/volume) 2.2 10*3 1.0-4.0 Blood monocytes automated count (number/volume) 1. 6 10*3 0.0-1.0 Automated eosinophil count 0.0 10*3/uL 0 .0-0.3 Automated blood basophil count (count/volume) 0.0 10*3/uL 0.0-0.1 PT panel in platelet poor plasma by coag ulation assay - 10/10/16 18:40 Prothrombin time (PT) in platelet poor plasma by coagu lation assay 13.9 s 12.2-14.7 INR in platelet poor plasma or blood by coagulation as say 1.1 0.8-1.4 Activated partial thromboplastin time (a PTT) in platelet poor plasma bycoagulation assay - 10/10/16 18:40 Activated partial thromboplastin time (a PTT) in platelet poor plasma bycoagulation assay 34 s 24-35 Blood manual differential performed dete ction - 10/10/16 18:40 Blood monocytes/100 leukocytes 3 % NRG Manual blood segmented neutrophils/100 leukocytes 77 % NRG Manual blood lymphocytes/100 leukocytes 20 % NRG Blood stomatocytes detection by light microscopy S LIGHT NR Comprehensive metabolic panel - 10/10/16 18:40 Serum or plasma sodium measurement (moles/volume) 136 mmol/L 135-145 Serum or plasma potassium measurement (moles/volume) 3.5 mmol/L 3.6-5.0 Serum or plasma chloride measurement (moles/volume) 103 mmol/L 98-107 Carbon dioxide 21 mmol/L 21-32 Serum or plasma anion gap determination (moles/volume) 12 mmol/L 5-14 Serum or plasma urea nitrogen measurement (mass/volume ) 10 mg/dL 7-18 Serum or plasma creatinine measurement (mass/volume) 0.78 mg/dL 0.60-1.30 Serum or plasma urea nitrogen/creatinine mass ratio 13 NRG Serum or plasma creatinine measurement w ith calculation of estimated glomerular filtration rate > NRG Serum or plasma glucose measurement (mass/volume) 101 mg/dL 70-105 Serum or plasma calcium measurement (mass/volume) 9.4 mg/dL 8.5-10.1 Serum or plasma total bilirubin measurement (mass/volu me) 1.0 mg/dL 0.1-1.0 Serum or plasma alkaline phosphatase chaz surement (enzymatic activity/volume) 106 U/L 40-136 Serum or plasma aspartate aminotransfera se measurement (enzymatic activity/volume) 14 U/L 5-34 Serum or plasma alanine aminotransferase measurement (enzymatic activity/volume) 11 U/L 0-55 Serum or plasma protein measurement (mass/volume) 7.5 g/dL 6.4-8.2 Serum or plasma albumin measurement (mass/volume) 4.2 g/dL 3.2-4.5 Complete urinalysis with reflex to cultu re - 10/10/16 20:17 Urine color determination YELLOW NRG Urine clarity determination SLIGHTLY CLOUDY NRG Urine pH measurement by test strip 5 5-9 Specific gravity of urine by test strip 1.010 1.016-1.022 Urine protein assay by test strip, semi-quantitative 2+ NEGATIVE Urine glucose detection by automated test strip NE GATIVE NEGATIVE Erythrocytes detection in urine sediment by light micr oscopy NEGATIVE NEGATIVE Urine ketones detection by automated test strip NE GATIVE NEGATIVE Urine nitrite detection by test strip NEGATIVE NEGATIVE Urine total bilirubin detection by test strip NEGA TIVE NEGATIVE Urine urobilinogen measurement by automated test strip (mass/volume) NORMAL NORMAL Urine leukocyte esterase detection by dipstick 2+ NEGATIVE Automated urine sediment erythrocyte cou nt by microscopy (number/high power field) NONE NRG Automated urine sediment leukocyte count by microscopy (number/high power field) [HPF] NRG Bacteria detection in urine sediment by light microsco py NEGATIVE NRG Squamous epithelial cells detection in u rine sediment by light microscopy 0-2 NRG Crystals detection in urine sediment by light microsco py NONE NRG Casts detection in urine sediment by light microscopy NONE NRG Mucus detection in urine sediment by light microscopy NEGATIVE NRG Complete urinalysis with reflex to culture NO NRG Bacteria identification in genital speci men by aerobe culture - 10/10/16 21:47 FREE TEXT EXTERNAL PLUS NORMAL SOLO NR G QUANTITY OF GROWTH Moderate Growth NRG Bacteria identification in genital specimen by aerobe culture [id number] NRG Microscopic examination by wet preparati on - 10/10/16 21:47 WET PREP RESULTS 10/10/16 2201 BY CN NR G Neisseria gonorrhoeae DNA detection by p robe and signal amplification method - 10/10/16 21:47 Gonorrhea amp DNA-urine Negative Negati ve Chlamydia trachomatis DNA detection by p robe and signal amplification method - 10/10/16 21:47 Chlamydia trachomatis DNA detection by p robe and target amplification method Negative Negative Complete blood count (CBC) with automate d white blood cell (WBC) differential - 10/11/16 06:00 Blood leukocytes automated count (number/volume) 13.6 10*3/uL 4.3-11.0 Blood erythrocytes automated count (number/volume) 3.43 10*6/uL 4.35-5.85 Venous blood hemoglobin measurement (mass/volume) 11.1 g/dL 11.5-16.0 Blood hematocrit (volume fraction) 33 % 35-52 Automated erythrocyte mean corpuscular volume 97 [ foz_us] 80-99 Automated erythrocyte mean corpuscular h emoglobin (mass per erythrocyte) 32 pg 25-34 Automated erythrocyte mean corpuscular h emoglobin concentration measurement (mass/volume) 33 g/dL 32-36 Automated erythrocyte distribution width ratio 12. 7 % 10.0- 14.5 Automated blood platelet count (count/volume) 206 10*3/uL 130-400 Automated blood platelet mean volume measurement 10.2 [foz_us] 7.4-10.4 Automated blood neutrophils/100 leukocytes 74 % 42-75 Automated blood lymphocytes/100 leukocytes 16 % 12-44 Blood monocytes/100 leukocytes 10 % 0-12 Automated blood eosinophils/100 leukocytes 0 % 0-10 Automated blood basophils/100 leukocytes 0 % 0-10 Blood neutrophils automated count (number/volume) 10.1 10*3 1.8-7.8 Blood lymphocytes automated count (number/volume) 2.1 10*3 1.0-4.0 Blood monocytes automated count (number/volume) 1. 3 10*3 0.0-1.0 Automated eosinophil count 0.1 10*3/uL 0 .0-0.3 Automated blood basophil count (count/volume) 0.0 10*3/uL 0.0-0.1 Comprehensive metabolic panel - 10/11/16 06:00 Serum or plasma sodium measurement (moles/volume) 138 mmol/L 135-145 Serum or plasma potassium measurement (moles/volume) 3.8 mmol/L 3.6-5.0 Serum or plasma chloride measurement (moles/volume) 106 mmol/L 98-107 Carbon dioxide 23 mmol/L 21-32 Serum or plasma anion gap determination (moles/volume) 9 mmol/L 5-14 Serum or plasma urea nitrogen measurement (mass/volume ) 8 mg/dL 7-18 Serum or plasma creatinine measurement (mass/volume) 0.74 mg/dL 0.60-1.30 Serum or plasma urea nitrogen/creatinine mass ratio 11 NRG Serum or plasma creatinine measurement w ith calculation of estimated glomerular filtration rate > NRG Serum or plasma glucose measurement (mass/volume) 90 mg/dL 70-105 Serum or plasma calcium measurement (mass/volume) 8.8 mg/dL 8.5-10.1 Serum or plasma total bilirubin measurement (mass/volu me) 0.8 mg/dL 0.1-1.0 Serum or plasma alkaline phosphatase chaz surement (enzymatic activity/volume) 97 U/L 40-136 Serum or plasma aspartate aminotransfera se measurement (enzymatic activity/volume) 21 U/L 5-34 Serum or plasma alanine aminotransferase measurement (enzymatic activity/volume) 12 U/L 0-55 Serum or plasma protein measurement (mass/volume) 6.3 g/dL 6.4-8.2 Serum or plasma albumin measurement (mass/volume) 3.6 g/dL 3.2-4.5 Anemia Profile B - 10/23/16 12:37 WBC 14.0 x10E3/uL 3.4-10.8 RBC 4.79 x10E6/uL 3.77-5.28 Hemoglobin 15.3 g/dL 11.1-15.9 Hematocrit 45.4 % 34.0-46.6 MCV 95 fL 79-97 MCH 31.9 pg 26.6-33.0 MCHC 33.7 g/dL 31.5-35.7 RDW 13.6 % 12.3-15.4 Platelets 472 x10E3/uL 150-379 Neutrophils 72 % Lymphs 23 % Monocytes 5 % Eos 0 % Basos 0 % Neutrophils (Absolute) 10.1 x10E3/uL 1.4 -7.0 Lymphs (Absolute) 3.1 x10E3/uL 0.7-3.1 Monocytes(Absolute) 0.7 x10E3/uL 0.1-0.9 Eos (Absolute) 0.1 x10E3/uL 0.0-0.4 Baso (Absolute) 0.0 x10E3/uL 0.0-0.2 Immature Granulocytes 0 % Immature Grans (Abs) 0.0 x10E3/uL 0.0-0. 1 NRBC 0 % 0 - 0 Vitamin B12 464 pg/mL 211-946 Folate (Folic Acid), Serum 16.0 ng/mL >3 .0 Iron Bind.Cap.(TIBC) 350 ug/dL 250-450 UIBC 268 ug/dL 131-425 Iron, Serum 82 ug/dL 27-159 Iron Saturation 23 % 15-55 Ferritin, Serum 56 ng/mL 15-150 Reticulocyte Count 1.4 % 0.6-2.6 Comp. Metabolic Panel (14) - 10/23/16 12 :37 Glucose, Serum 87 mg/dL 65-99 BUN 14 mg/dL 6-24 Creatinine, Serum 0.84 mg/dL 0.57-1.00 eGFR If NonAfricn Am 82 mL/min/1.73 >59 eGFR If Africn Am 95 mL/min/1.73 >59 BUN/Creatinine Ratio 17 9-23 Sodium, Serum 141 mmol/L 136-144 Potassium, Serum 5.1 mmol/L 3.5-5.2 Chloride, Serum 98 mmol/L 97-106 Carbon Dioxide, Total 23 mmol/L 18-29 Calcium, Serum 10.2 mg/dL 8.7-10.2 Protein, Total, Serum 7.8 g/dL 6.0-8.5 Albumin, Serum 4.9 g/dL 3.5-5.5 Globulin, Total 2.9 g/dL 1.5-4.5 A/G Ratio 1.7 1.1-2.5 Bilirubin, Total 0.5 mg/dL 0.0-1.2 Alkaline Phosphatase, S 99 IU/L 39-117 AST (SGOT) 18 IU/L 0-40 ALT (SGPT) 15 IU/L 0-32 Lipid Panel - 10/23/16 12:37 Cholesterol, Total 250 mg/dL 100-199 Triglycerides 178 mg/dL 0-149 HDL Cholesterol 63 mg/dL >39 VLDL Cholesterol [place] 36 mg/dL 5-40 LDL Cholesterol Calc 151 mg/dL 0-99 Urine Culture, Routine - 10/23/16 12:37 Urine Culture, Routine Note Influenza virus A and B antigen detectio n - 11/30/16 19:40 FLU RESULT NEGATIVE FOR INFLUENZA A AND B ANTIGENS BY [facility] Rapid Drug Screen,Medical - 10/18/17 10: 18 Amphetamine NEGATIVE NEGATIVE Barbiturates NEGATIVE NEGATIVE Benzodiazepines POSITIVE NEGATIVE Cocaine NEGATIVE NEGATIVE Marijuana POSITIVE NEGATIVE Methylenedioxymethamphetamine NEGATIVE NEGATIVE Opiates NEGATIVE NEGATIVE Oxycodone NEGATIVE NEGATIVE Phencyclidine NEGATIVE NEGATIVE Propoxyphene NEGATIVE NEGATIVE Tricyclic Antidepressant NEGATIVE NEGAT HIWOT CMP - 04/01/18 11:11 GLUCOSE 94 mg/dL 65-99 UREA NITROGEN (BUN) 10 mg/dL 7-25 CREATININE 0.96 mg/dL 0.50-1.10 eGFR NON-AFR. [place]OU[place] A[place] 69 mL/min/1.73m2 > OR = 60 eGFR 80 mL/min/1.73m2 > OR = 60 BUN/CREATININE RATIO NOT APPLICABLE (calc) 6-22 SODIUM 142 mmol/L 135-146 POTASSIUM 4.2 mmol/L 3.5-5.3 CHLORIDE 105 mmol/L 98-110 CARBON DIOXIDE 28 mmol/L 20-31 CALCIUM 9.8 mg/dL 8.6-10.2 PROTEIN, TOTAL 7.1 g/dL 6.1-8.1 ALBUMIN 4.4 g/dL 3.6-5.1 GLOBULIN 2.7 g/dL (calc) 1.9-3.7 ALBUMIN/GLOBULIN RATIO 1.6 (calc) 1.0-2. 5 BILIRUBIN, TOTAL 0.7 mg/dL 0.2-1.2 ALKALINE PHOSPHATASE 89 U/L 33-115 AST 15 U/L 10-35 ALT 12 U/L 6-29 VIT B-12 - 09/07/19 13:26 Vitamin B12 407.00 pg/mL 213.00-816.00 Urinalysis - 09/07/19 14:39 Icotest N/A Negative Urine Volume Urine Volume Sufficient (10mL) Urine-Appearance Clear Clear Urine-Bacteria Negative Urine-Bilirubin Negative Negative Urine-Blood Negative Negative Urine-Color Yellow Colorless-[place] ow Urine-Epithelial Cells 0-5/HPF Urine-Glucose Negative Negative Urine-Ketones Negative Negative Urine-Leukocytes Negative Negative Urine-Nitrite Negative Negative Urine-Other Urine Saved if Culture Need ed (48hrs from time of collection) Urine-pH 5.5 5-8.5 Urine-Protein Negative Negative Urine-RBC Negative Urine-Specific [place] 1.010 1.000-1 .030 Urine-WBC Negative Urobilinogen 0.2 E.U./dL 0.2-1.0 Comprehensive Metabolic Panel - 09/25/19 12:20 Albumin 4.4 g/dL 3.6-5.1 ALP 83 U/L 35-130 ALT 16 U/L 6-45 Anion Gap 14 6-14 AST 20 U/L 2-40 BUN 16 mg/dL 5-25 Calcium 9.6 mg/dL 8.3-10.4 Chloride 107 mmol/L 95-114 CO2 23 mEq/L 22-33 Creat 0.87 mg/dL 0.50-1.50 eGFR 69 mL/min/1.73m2 >59 Globulin 2.3 g/dL 2.3-3.5 Glucose 96 mg/dL 70-110 Osmo 290 280-295 Potassium 4.3 mmol/L 3.5-5.3 Sodium 140 mmol/L 134-148 TBil 0.7 mg/dL 0.2-1.2 TP 6.7 g/dL 6.0-8.3 VIT B-12 - 10/26/19 13:22 Vitamin B12 343.00 pg/mL 213.00-816.00 NIDHI w/Reflex - 10/26/19 13:22 NIDHI DIRECT NEGATIVE NEGATIVE Immunofixation (GAYATHRI), Serum - 10/26/19 1 3:22 IMMUNOGLOBULIN A, QN, SERUM 226 MG/DL 87 -352 IMMUNOFIXATION RESULT, SERUM AN APPARENT NOR MAL IMMUNOFIXATION PATTERN. IMMUNOGLOBULIN G, QN, SERUM 803 MG/DL 70 0-1600 IMMUNOGLOBULIN M, QN, SERUM 26 MG/DL 26 -217 NIDHI w/Reflex - 10/26/19 13:22 NIDHI Direct Negative Negative Immunofixation, Serum - 10/26/19 13:22 Immunoglobulin G, Qn, Serum 803 mg/dL 70 0-1600 Immunoglobulin A, Qn, Serum 226 mg/dL 87 -352 Immunoglobulin M, Qn, Serum 26 mg/dL 26 -217 Immunofixation Result, Serum Comment Coronavirus SARS-CoV-2 SO 2018 0 08:10 Coronavirus Ab [Units/volume] in Serum Negative Negative Encounters ACCT No. Visit Date/Time Discharge Status Pt. Type Provider Facility Loc./Unit Complaint [id number] 01/12/2020 08:49:00 01/12/2020 23:59 :00 DIS Outpatient REBECCA FRIEDMAN [id number] 01/11/2020 14:15:00 01/11/2020 23:59 :00 DIS Outpatient REBECCA FRIEDMAN [id number] 10/26/2019 13:18:00 10/26/2019 23:59 :00 DIS Outpatient Mamadou Hackett [id number] 10/10/2019 11:04:00 10/10/2019 23:59: 00 DIS Outpatient REBECCA FRIEDMAN [id number] 09/26/2019 16:55:00 09/26/2019 23:59: 00 DIS Outpatient REBECCA FRIEDMAN [id number] 09/25/2019 12:04:00 09/25/2019 23:59: 00 DIS Outpatient REBECCA FRIEDMAN [id number] 09/25/2019 11:15:00 09/25/2019 23:59: 00 DIS Outpatient REBECCA FRIEDMAN [id number] 09/07/2019 13:10:00 09/07/2019 16:15: 00 DIS Outpatient [facility] [id number] 11/03/2017 09:40:00 11/03/2017 10:14: 00 DIS Outpatient Danay Suazo [facility] [id number] 10/18/2017 09:45:00 10/18/2017 11:25: 00 DIS Outpatient Zelda Rhodes [id number] 10/11/2019 08:32:36 Document Registration [id number] 10/05/2019 08:47:51 Document Registration [id number] 10/18/2017 10:16:27 Document Registration [id number] 01/11/2019 11:00:00 01/11/2019 23:59:5 9 CLS Outpatient ROBERT WAGGONER, [facility] [id number] 04/01/2018 10:40:00 Document Registration [id number] 10/27/2019 15:09:00 Document Registration [id number] 10/24/2016 13:05:00 Document Registration [id number] 10/30/2019 19:07:00 Document Registration [id number] 05/29/2020 13:45:00 020 14:15:00 DIS Outpatient SANDY GOLDMAN MD [facility] PREOP CATARACT RIGHT EYE [id number] 03/08/2017 13:01:00 017 14:46:00 DIS Emergency DANAY SUAZO APRN [facility] ER RIGHT HAND PAIN [id number] 11/30/2016 19:27:00 017 21:44:00 DIS Emergency JASMIN WAGGONER, BREANA Caraballo [facility] ER EYE PAIN/HEADAC HE/BODY ACHES/COUGH [id number] 10/10/2016 22:27:00 016 15:00:00 DIS Outpatient DAMIEN WAGGONER, MARIE Bello [facility] 4TH PID [id number] 03/25/2016 07:01:00 016 23:59:59 CLS Outpatient BART WEST MD [facility] CATH CP,CAD,HTN,HLP,DM [id number] 03/19/2016 14:30:00 016 17:00:00 DIS Emergency RYAN LE DO [facility] ER CHEST PAIN [id number] 01/26/2016 21:19:00 016 02:31:00 DIS Emergency AJAY VALDEZ DO [facility] ER DIZZINESS [id number] 06/27/2015 10:49:00 015 23:59:59 CLS Outpatient BART WEST MD [facility] CARD CAD CP HTN HYPLERLIPDEM IA [id number] 12/13/2014 13:24:00 015 14:42:00 DIS Emergency DANAY SUAZO APRN [facility] ER FALL/RIGHT LEG PAIN [id number] 09/06/2014 20:44:00 014 14:25:00 DIS Inpatient BART WEST MD [facility] CSD SYNCOPE;LIGHTHEADEDNESS [id number] 08/13/2014 12:53:00 014 23:59:59 CLS Outpatient NIKA WOLFF [facility] RAD PAIN AND MASS IN LEFT BREAST [id number] 06/27/2014 11:16:00 014 23:59:59 CLS Outpatient THAI VILLALBA [facility] CARD CAD,CP,HTN [id number] 03/26/2014 10:55:00 014 23:59:59 CLS Outpatient BART WEST MD [facility] LAB CAD,DEPRESSION,FH,HTN,M ARIJUANA USE [id number] 03/23/2014 19:55:00 014 18:00:00 DIS Inpatient BART WEST MD [facility] ICU CP [id number] 12/02/2013 14:38:00 014 19:20:00 DIS Emergency MEGAN SALDAÑA [facility] ER LOWER ABD PAIN [id number] 12/01/2013 14:24:00 014 10:00:00 DIS Outpatient BART WEST MD [facility] CATH CHEST PAIN/LEFT ARM TIN GLING [id number] 05/31/2020 09:45:00 P EN SANDY Vásquez MD [facility] CATARACT RIGHT EYE [id number] 02/22/2013 10:25:00 Document Registration [id number] 02/16/2013 12:50:00 Document Registration [id number] 01/23/2013 09:58:00 Document Registration [id number] 12/29/2012 15:02:00 Document Registration [id number] 12/14/2012 10:57:00 Document Registration [id number] 01/13/2012 10:18:00 Document Registration [id number] 10/22/2011 10:03:00 Document Registration [id number] 10/01/2011 11:55:00 Document Registration [id number] 09/24/2011 08:41:00 Document Registration [id number] 03/24/2011 00:50:00 Document Registration [id number] 07/15/2010 15:24:00 Document Registration [id number] 10/25/2016 07:05:00 Document Registration [id number] 12/31/2014 00:00:00 12/31/2014 23:59: 59 CLS Outpatient NIKA WOLFF APRN [id number] 11/01/2014 16:02:00 11/01/2014 23:59: 59 CLS Outpatient NIKA WOLFF APRN S [id number] 10/03/2014 13:37:00 10/03/2014 23:59: 59 CLS Outpatient NIKA WOLFF APRN S [id number] 08/02/2014 15:32:00 08/02/2014 23:59: 59 CLS Outpatient CHANELLE LOPEZ APRN A [id number] 05/17/2014 12:09:00 05/17/2014 23:59: 59 CLS Outpatient NIKA WOLFF APRN S [id number] 04/09/2014 10:27:00 04/09/2014 23:59: 59 CLS Outpatient NIKA WOLFF APRN S [id number] 12/07/2013 14:17:00 12/07/2013 23:59: 59 CLS Outpatient NIKA WOLFF APRN [id number] 05/18/2013 14:44:00 05/18/2013 23:59: 59 CLS Outpatient XOCHITL ALMANZA MD [id number] 02/02/2013 14:33:00 02/02/2013 23:59: 59 CLS Outpatient XOCHITL ALMANZA MD [id number] 01/30/2013 14:54:00 01/30/2013 23:59: 59 CLS Outpatient [id number] 01/19/2013 13:57:00 01/19/2013 23:59: 59 CLS Outpatient XOCHITL ALMANZA MD [id number] 12/13/2012 13:45:00 12/13/2012 23:59: 59 CLS Outpatient BIBIANA JONES MD [id number] 11/24/2012 11:38:00 11/24/2012 23:59: 59 CLS Outpatient XOCHITL ALMANZA MD [id number] 09/27/2012 14:56:00 09/27/2012 23:59: 59 [place] [id number] 09/27/2012 14:56:00 09/27/2012 23:59:5 9 CLS Outpatient XOCHITL ALMANZA MD [id number] 04/18/2013 14:34:00 Document Registration
--- NOTE | 2020-06-03 07:20 | Anesthesia-General Post-Op ---
MAC Significant Intra-Op Events Notes late entry 05/31/20 Patient Condition Mental Status/LOC: Same as Preop Cardiovascular: Satisfactory Nausea/Vomiting: Absent Respiratory: Satisfactory Pain: Controlled Complications: Absent Post Op Complications Complications None Follow Up Care/Instructions Patient Instructions None needed. Anesthesiology Discharge Order Discharge Order Patient is doing well, no complaints, stable vital signs, no apparent adverse anesthesia problems. No complications reported per nursing. BECCA AUGUSTINE CRNA Jun 03, 2020 07:20
== END 2020-05-31 09:30 | disposition home or self-care (01) ==
LOC: SDC 07:22
PROVIDERS: ATTEND Specialist
DX: H25.11 Age-related nuclear cataract, right eye (principal); I10 Essential (primary) hypertension; F32.9 Major depressive disorder, single episode, unspecified; G62.9 Polyneuropathy, unspecified; Z79.899 Other long term (current) drug therapy; F17.210 Nicotine dependence, cigarettes, uncomplicated; Z80.1 Family history of malignant neoplasm of trachea, bronchus and lung
CPT/HCPCS: 66982; V2632

== ENCOUNTER 2020-07-05 05:51 | Outpatient (CLI) | payer MEDICAID ==
[~2020-07-05] VITALS: Ht 121.9 cm; Wt 45.5 kg
== END 2020-07-05 12:19 | disposition home or self-care (01) ==
LOC: PREOP 05:51
PROVIDERS: ATTEND Specialist
DX: Z01.818 Encounter for other preprocedural examination (principal)

== ENCOUNTER 2020-11-27 05:33 | Outpatient (RCR) | payer MEDICARE, MEDICAID ==
[~2020-11-27] VITALS: Ht 149.9 cm; Wt 47.2 kg
[~2020-11-27 05:33] MED LIST changes: +DOXY100C2 PO
== END 2020-11-27 10:15 | disposition home or self-care (01) ==
LOC: PREOP 05:33
PROVIDERS: ATTEND Specialist
DX: Z01.812 Encounter for preprocedural laboratory examination (principal); H25.12 Age-related nuclear cataract, left eye; Z20.822 Contact with and (suspected) exposure to COVID-19
CPT/HCPCS: 87635

== ENCOUNTER 2021-01-13 05:53 | Outpatient (RCR) | payer MEDICARE, MEDICAID | END 2021-01-13 15:00 | disposition home or self-care (01) | LOC: PREOP 05:53 | PROVIDERS: ATTEND Specialist | DX: Z01.818 Encounter for other preprocedural examination (principal) ==

== ENCOUNTER → 2021-02-12 | Outpatient (CLI) | payer MEDICARE, MEDICAID | END | disposition home or self-care (01) | LOC: PREOP 05:36 | PROVIDERS: ATTEND Specialist | DX: Z01.818 Encounter for other preprocedural examination (principal) ==

== ENCOUNTER 2021-02-21 08:03 | Day surgery (SDC) | payer MEDICARE, MEDICAID ==
[~2021-02-21] VITALS: Ht 149.9 cm; Wt 47.2 kg
[2021-02-21] MEDS ORDERED: TIMOLOL MALEATE 0.5% 5 ML (TIMOPTIC) BTL OU PRN (08:15)
[2021-02-21] MEDS ORDERED: MOXIFLOXACIN OPHTH SOLN 5 MG/ML 0.3 ML SYRINGE OP ONE (08:15)
[2021-02-21] MEDS ORDERED: POVIDONE (BETADINE) OPHTH SOLN 5% 30 ML OP ONE (08:15)
[2021-02-21] MEDS ORDERED: LIDOCAINE PF 1% 2 ML VIAL IR PRN (08:15)
[2021-02-21] MEDS: TETRACAINE 0.5% OPHTH SOLN 4 ML BTL (SINGLE DOSE ONLY) OU PRN ×4 (08:16→08:35)
[2021-02-21] MEDS: PHENYLEPHRINE 10% OPHTH (NEO-SYN) 5 ML BTL OU SCH ×3 (08:23→08:35)
[2021-02-21] MEDS: TROPICAMIDE 1% OPH SOLN (MYDRIACYL) 15 ML BTL OP SCH ×3 (08:24→08:35)
[2021-02-21] MEDS ORDERED: acetaZOLAMIDE ER 500 MG CAP (DIAMOX SEQUELS) PO ONE (08:30)
[2021-02-21 08:31] VITALS: BP 121/83
[2021-02-21] MEDS ORDERED: MIDAZOLAM 2 MG/2 ML (VERSED) VIAL ONE (08:56)
--- NOTE | 2021-02-21 08:57 | Ophthalmologist Pre-Op Note ---
Pre-Operative Progress Note H&P Reviewed The H&P was reviewed, patient examined and no changes noted. Date H&P Reviewed: Feb 21, 2021 Time H&P Reviewed: 08:57 Pre-Op Dx Cataract, Left Eye SANDY GOLDMAN MD Feb 21, 2021 08:57
--- NOTE | 2021-02-21 09:21 | Anesthesia-General Post-Op ---
MAC Patient Condition Mental Status/LOC: Same as Preop Cardiovascular: Satisfactory Nausea/Vomiting: Absent Respiratory: Satisfactory Pain: Controlled Complications: Absent Post Op Complications Complications None Follow Up Care/Instructions Patient Instructions None needed. Anesthesiology Discharge Order Discharge Order Patient is doing well, no complaints, stable vital signs, no apparent adverse anesthesia problems. No complications reported per nursing. RONI BYERS CRNA Feb 21, 2021 09:21
--- NOTE | 2021-02-21 09:22 | Ophthalmology Operative Report ---
Cataract removal/placement IOL PREOPERATIVE DIAGNOSIS: Cataract Left Eye POSTOPERATIVE DIAGNOSIS: Cataract Left Eye PROCEDURE: Cataract removal and placement of posterior chamber implant, left eye SURGEON: Madan Goldman ANESTHESIA: Topical with sedation COMPLICATIONS: None ESTIMATED BLOOD LOSS: Minimal DESCRIPTION OF PROCEDURE: After proper informed consent was obtained, the patient, a 50 female, was taken to the Operating Room and the left eye was anesthetized with tetracaine. The left eye was then prepped and draped in the usual manner. A wire lid speculum was placed. A paracentesis was made at the left hand position. Preservative free lidocaine was injected into the anterior chamber followed by viscoelastic. A clear corneal incision was made in the temporal position. A capsulorrhexis was preformed and the central nuclear and cortical material were removed. The posterior capsule was polished and an Evan 13.5 [id number] was placed into the capsular bag. The residual viscoelastic was aspirated and balanced saline solution was injected into the anterior chamber. Moxifloxacin was injected into the anterior chamber. The wound was checked and found to be water tight. The patient tolerated the procedure well without complications. MADAN GOLDMAN MD Feb 21, 2021 09:22
[2021-02-21 09:25] VITALS: BP 111/74
== END 2021-02-21 09:25 | disposition home or self-care (01) ==
LOC: SDC 08:03
PROVIDERS: ATTEND Specialist
DX: H25.12 Age-related nuclear cataract, left eye (principal); I10 Essential (primary) hypertension; F32.9 Major depressive disorder, single episode, unspecified; G62.9 Polyneuropathy, unspecified; Z79.899 Other long term (current) drug therapy; Z88.2 Allergy status to sulfonamides; Z88.8 Allergy status to other drugs, medicaments and biological substances; F17.210 Nicotine dependence, cigarettes, uncomplicated; Z80.1 Family history of malignant neoplasm of trachea, bronchus and lung

== ENCOUNTER 2021-05-19 12:41 | Emergency (ER) | payer MEDICARE, MEDICAID ==
[~2021-05-19] VITALS: Ht 149 cm; Wt 42.0 kg
--- NOTE | 2021-05-19 13:34 | ED EENT ---
History of Present Illness General Chief Complaint: Facial Problems Stated Complaint: SWOLLEN FACE Nursing Triage Note: PT REPORTS TO ED FOR LT CHEECK SWELLING X'S THREE DAYS. PT REPORTS HAVING A CAVITY ON HER LOWER LT SIDE OF HER MOUTH THAT SHE BELIEVES HAS BECOME AN ABSCESS. PT AMB. TO FT2 WITHOUT DIFFICULTY. Source: patient Exam Limitations: no limitations History of Present Illness Date Seen by Provider: May 19, 2021 Time Seen by Provider: 13:27 Initial Comments To ER with left lower jaw swelling for 3 days. She had a painful tooth preceding this swelling. Timing/Duration: abrupt Severity: moderate Location: dental Associated Symptoms: denies symptoms Allergies and Home Medications Allergies Coded Allergies: methylprednisolone (Verified Allergy, Unknown, uncontrolled muscle spasms, 05/29/20) Home Medications Divalproex Sodium 500 Mg Tab.er.24h, 500 MG PO BID, (Reported) Doxycycline Hyclate 100 Mg Capsule, 100 MG PO DAILY, (Reported) Gabapentin 600 Mg Tablet, 600 MG PO TID, (Reported) Ondansetron HCl 4 Mg Tab, 4 MG PO Q6H PRN for NAUSEA/VOMITING, (Reported) Patient Home Medication List Home Medication List Reviewed: Yes Review of Systems Review of Systems Constitutional: see HPI Eyes: No Symptoms Reported Ears: No Symptoms Reported Nose: no symptoms reported Mouth: no symptoms reported Throat: no symptoms reported Respiratory: no symptoms reported Cardiovascular: no symptoms reported Musculoskeletal: no symptoms reported Past Bzscyqj-Fsitdy-Znbvlx Hx Patient Social History Alcohol Use: Denies Use Drug of Choice: Pot Smoking Status: Current Everyday Smoker Type Used: Cigarettes Recent Infectious Disease Expo: No Recent Hopitalizations: No Immunizations Up To Date Tetanus Booster (TDap): Unknown PED Vaccines UTD: Yes Date of Pneumonia Vaccine: Jul 24, 2014 Date of Influenza Vaccine: Dec 02, 2013 Seasonal Allergies Seasonal Allergies: Yes Past Medical History Surgeries: Yes (R ARM, C-SECTIONS X4, BACK SURGERY;CARDIAC CATH X 4/ STENTS X 2) Cardiac, Section, Coronary Stent, Gallbladder, Orthopedic, Tubal Ligation Respiratory: No Cardiac: Yes (stents placed) Coronary Artery Disease, High Cholesterol, Hypertension Neurological: Yes Headaches /Migraines, Neuropathy Reproductive Disorders: No Female Reproductive Disorders: Pelvic Inflammatory Dis, Ovarian Cyst 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 Sexually Transmitted Disease: No HIV/AIDS: No Gastrointestinal: Yes Gastroesophageal Reflux, Ulcer, Gall Bladder Disease Musculoskeletal: Yes (PREVIOUS BACK SURGERY; BACK PAIN/LEG PAIN/ARM PAIN) Degenerate Disk Disease, Arthritis, Chronic Back Pain Endocrine: No Loss of Vision: Denies Hearing Impairment: Denies Cancer: No Psychosocial: Yes Anxiety, Suicide Attempts, Depression Integumentary: No Blood Disorders: No Adverse Reaction/Blood Tranf: No Family Medical History Cancer 19 FATHER (Lung Cancer) Congestive heart failure 19 MOTHER G8 BROTHER Family history: Alzheimer's disease 19 FATHER (Uncle on fathers side) Family history: Cardiovascular disease Family history: Diabetes mellitus 19 MOTHER Family history: Hypertension 19 MOTHER G8 BROTHER Heart disease 19 FATHER (paternal grandfather) 19 MOTHER G8 BROTHER Myocardial infarction 19 FATHER (paternal grandfather) 19 MOTHER G8 BROTHER (40 when heart trouble started, from [place] at age 52. ) Seizure disorder 19 MOTHER (maternal aunt) Physical Exam Vital Signs Vital Signs - First Documented 05/19/21 13:02 Temp 36.0 Pulse 111 Resp 20 B/P (MAP) 108/83 (91) Pulse Ox 98 O2 Delivery Room Air Height, Weight, BMI Height: 4'11.00" Weight: 115lbs. 0.0oz. 52.299725ft; 18.00 BMI Method:Stated General Appearance: WD/WN, no apparent distress Eyes: bilateral eye normal inspection, bilateral eye PERRL, bilateral eye EOMI Ears: bilateral ear auricle normal, bilateral ear canal normal, bilateral ear TM normal Neck: non-tender, full range of motion, other (left lower jaw swelling. no palpable buccal fluctuance. does have a fractured and carious left lower molar. ) Respiratory: no respiratory distress, no accessory muscle use Gastrointestinal: normal bowel sounds, non tender Neurologic/Psychiatric: alert, normal mood/affect, oriented x 3 Skin: normal color, warm/dry Progress/Results/Core Measures Results/Orders My Orders Orders - DANAY SUAZO APRN Ceftriaxone (Rocephin) (05/19/21 13:45) Lidocaine 1% Inj 20 Ml (Xylocaine 1% Inj (05/19/21 13:45) Naproxen Tablet (Naprosyn Tablet) (05/19/21 13:45) Vital Signs/I&O 05/19/21 13:02 Temp 36.0 Pulse 111 Resp 20 B/P (MAP) 108/83 (91) Pulse Ox 98 O2 Delivery Room Air Blood Pressure Mean: 91 Departure Impression Primary Impression: Odontogenic infection of jaw Disposition: 01 HOME, SELF-CARE Condition: Stable Departure-Patient Inst. Decision time for Depature: 13:35 Referrals: REBECCA FRIEDMAN MD (PCP/Family) Primary Care Physician Patient Instructions: Dental Pain Add. Discharge Instructions: 1. Antibiotics as directed. Call your dentist of your choosing for follow-up this week. Return to ER for any worsening. All discharge instructions reviewed with patient and/or family. Voiced understanding. Scripts Hydrocodone/Acetaminophen (Hydrocodone-Acetamin 5-325 mg) 1 Each Tablet 1 TAB PO Q4H PRN for PAIN-MODERATE (5-7), #14 TAB Prov: DANAY SUAZO SCORER HELPER 05/19/21 Penicillin V Potassium (Penicillin V Potassium) 500 Mg Tablet 500 MG PO Q6H, #28 TAB Prov: DANAY SUAZO SCORER HELPER 05/19/21 DANAY SUAZO SCORER HELPER May 19, 2021 13:34
[2021-05-19] MEDS ORDERED: PENI500T PO (13:42)
[2021-05-19] MEDS ORDERED: ACHD5005 PO (13:42)
[2021-05-19] MEDS ORDERED: LIDOCAINE 1% INJ 20 ML 20 ML VIAL INJ ONE (13:45)
[2021-05-19] MEDS ORDERED: NAPROXEN 250 MG (NAPROSYN) TABLET PO ONE (13:45)
[2021-05-19] MEDS ORDERED: cefTRIAXone 1,000 MG VIAL IM ONE (13:45)
[2021-05-19 14:10] VITALS: BP 122/78
== END 2021-05-19 14:10 | disposition home or self-care (01) ==
LOC: EDUNIT# 12:41 → ER 12:44
DX: K04.7 Periapical abscess without sinus (principal); K03.81 Cracked tooth; I10 Essential (primary) hypertension; G43.909 Migraine, unspecified, not intractable, without status migrainosus; F17.210 Nicotine dependence, cigarettes, uncomplicated
CPT/HCPCS: 99284

== ENCOUNTER 2021-06-12 14:28 | Emergency (ER) | payer MEDICARE, MEDICAID ==
[~2021-06-12] VITALS: Ht 149.8 cm; Wt 43.8 kg
[~2021-06-12 14:28] MED LIST changes: +CLIN300C12 PO; +PENI500T PO
[2021-06-12 14:34] VITALS: BP 113/100
--- NOTE | 2021-06-12 14:44 | ED General ---
General Stated Complaint: CP Source of Information: Patient Exam Limitations: No Limitations History of Present Illness Date Seen by Provider: Jun 12, 2021 Time Seen by Provider: 14:42 Initial Comments To ER by [facility] from home and we are with reports of lightheadedness dizziness sweating and then chest pain. That began while she was at the pharmacy in [facility]. But was at about 1:30 PM. The pain was sharp in nature and not alleviated or exacerbated by anything that she knows. Family member gave her a full dose aspirin, EMS arrived on scene and gave her 1 sublingual nitroglycerin. This helped with the chest pain but the left arm pain persists. She has a history of 2 coronary stents [address] Martin [address] Gonzalez both placed in 2013. She does smoke cigarettes. She is not diabetic. She does not believe herself to have high cholesterol. Timing/Duration: 1-2 Days Severity: Moderate Associated Systoms: Chest Pain Allergies and Home Medications Allergies Coded Allergies: methylprednisolone (Verified Allergy, Unknown, uncontrolled muscle spasms, 05/29/20) Home Medications Clindamycin HCl 300 Mg Capsule, 300 MG PO TID Prescribed by: ELIUD HEREDIA on 05/26/21 1018 Divalproex Sodium 500 Mg Tab.er.24h, 500 MG PO BID, (Reported) Gabapentin 600 Mg Tablet, 600 MG PO TID, (Reported) Hydrocodone/Acetaminophen 1 Each Tablet, 1 TAB PO Q4H PRN for PAIN-MODERATE (5- 7) Prescribed by: DANAY SUAZO on 05/19/21 1342 Ondansetron HCl 4 Mg Tab, 4 MG PO Q6H PRN for NAUSEA/VOMITING, (Reported) Patient Home Medication List Home Medication List Reviewed: Yes Review of Systems Review of Systems Constitutional: see HPI EENTM: see HPI Respiratory: no symptoms reported Cardiovascular: see HPI, chest pain Genitourinary: no symptoms reported Musculoskeletal: no symptoms reported Skin: no symptoms reported Psychiatric/Neurological: No Symptoms Reported Hematologic/Lymphatic: No Symptoms Reported Immunological/Allergic: no symptoms reported Past Mnhhyit-Gkygcy-Sqtgly Hx Immunizations Up To Date Tetanus Booster (TDap): Unknown PED Vaccines UTD: Yes Seasonal Allergies Seasonal Allergies: Yes Past Medical History Surgeries: Yes (R ARM, C-SECTIONS X4, BACK SURGERY;CARDIAC CATH X 4/ STENTS X 2) Cardiac, Section, Coronary Stent, Gallbladder, Orthopedic, Tubal Ligation Respiratory: No Cardiac: Yes (stents placed) Coronary Artery Disease, High Cholesterol, Hypertension Neurological: Yes Headaches /Migraines, Neuropathy Reproductive Disorders: No Female Reproductive Disorders: Pelvic Inflammatory Dis, 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 Sexually Transmitted Disease: No HIV/AIDS: No Gastrointestinal: Yes Gastroesophageal Reflux, Ulcer, Gall Bladder Disease Musculoskeletal: Yes (PREVIOUS BACK SURGERY; BACK PAIN/LEG PAIN/ARM PAIN) Degenerate Disk Disease, Arthritis, Chronic Back Pain Endocrine: No Loss of Vision: Denies Hearing Impairment: Denies Cancer: No Psychosocial: Yes Anxiety, Suicide Attempts, Depression Integumentary: No Blood Disorders: No Adverse Reaction/Blood Tranf: No Family Medical History Cancer 19 FATHER (Lung Cancer) Congestive heart failure 19 MOTHER G8 BROTHER Family history: Alzheimer's disease 19 FATHER (Uncle on fathers side) Family history: Cardiovascular disease Family history: Diabetes mellitus 19 MOTHER Family history: Hypertension 19 MOTHER G8 BROTHER Heart disease 19 FATHER (paternal grandfather) 19 MOTHER G8 BROTHER Myocardial infarction 19 FATHER (paternal grandfather) 19 MOTHER G8 BROTHER (40 when heart trouble started, from [place] at age 52. ) Seizure disorder 19 MOTHER (maternal aunt) Physical Exam Vital Signs Vital Signs - First Documented Capillary Refill : Height, Weight, BMI Height: 4'11.00" Weight: 115lbs. 0.0oz. 52.333849fz; 18.17 BMI Method:Stated General Appearance: No Apparent Distress, WD/WN Eyes: Bilateral Eye Normal Inspection, Bilateral Eye PERRL, Bilateral Eye EOMI Neck: Full Range of Motion, Normal Inspection Respiratory: Normal Breath Sounds, No Accessory Muscle Use, No Respiratory Distress Cardiovascular: Regular Rate, Rhythm, Normal Peripheral Pulses Gastrointestinal: Normal Bowel Sounds, Non Tender, Soft Extremity: Normal Capillary Refill, Normal Inspection Neurologic/Psychiatric: Alert, Oriented x3 Skin: Normal Color, Warm/Dry Progress/Results/Core Measures Suspected Sepsis SIRS Temperature: Pulse: Respiratory Rate: Laboratory Tests 06/12/21 14:40: White Blood Count 8.4 Blood Pressure / Mean: Laboratory Tests 06/12/21 14:40: Creatinine 0.72, INR Comment 0.9, Platelet Count 261, Total Bilirubin 0.5 Results/Orders Lab Results Laboratory Tests Test 06/12/21 14:40 Range/Units White Blood Count 8.4 4.3-11.0 10^3/uL Red Blood Count 3.92 3.80-5.11 10^6/uL Hemoglobin 12.8 11.5-16.0 g/dL Hematocrit 38 35-52 % Mean Corpuscular Volume 97 80-99 fL Mean Corpuscular Hemoglobin 33 25-34 pg Mean Corpuscular Hemoglobin Concent 34 32-36 g/dL Red Cell Distribution Width 12.9 10.0-14.5 % Platelet Count 261 130-400 10^3/uL Mean Platelet Volume 11.0 9.0-12.2 fL Immature Granulocyte % (Auto) 0 % Neutrophils (%) (Auto) 54 42-75 % Lymphocytes (%) (Auto) 36 12-44 % Monocytes (%) (Auto) 8 0-12 % Eosinophils (%) (Auto) 1 0-10 % Basophils (%) (Auto) 1 0-10 % Neutrophils # (Auto) 4.6 1.8-7.8 10^3/uL Lymphocytes # (Auto) 3.0 1.0-4.0 10^3/uL Monocytes # (Auto) 0.7 0.0-1.0 10^3/uL Eosinophils # (Auto) 0.1 0.0-0.3 10^3/uL Basophils # (Auto) 0.0 0.0-0.1 10^3/uL Immature Granulocyte # (Auto) 0.0 0.0-0.1 10^3/uL Prothrombin Time 12.3 12.2-14.7 SEC INR Comment 0.9 0.8-1.4 Activated Partial Thromboplast Time 22 L 24-35 SEC D-Dimer < 0.27 0.00-0.49 UG/ML Sodium Level 140 135-145 MMOL/L Potassium Level 3.8 3.6-5.0 MMOL/L Chloride Level 106 98-107 MMOL/L Carbon Dioxide Level 21 21-32 MMOL/L Anion Gap 13 5-14 MMOL/L Blood Urea Nitrogen 14 7-18 MG/DL Creatinine 0.72 0.60-1.30 MG/DL Estimat Glomerular Filtration Rate 85 BUN/Creatinine Ratio 19 Glucose Level 115 H 70-105 MG/DL Calcium Level 9.3 8.5-10.1 MG/DL Corrected Calcium 9.1 8.5-10.1 MG/DL Magnesium Level 2.2 1.6-2.4 MG/DL Total Bilirubin 0.5 0.1-1.0 MG/DL Aspartate Amino Transf (AST/SGOT) 18 5-34 U/L Alanine Aminotransferase (ALT/SGPT) 21 0-55 U/L Alkaline Phosphatase 88 40-136 U/L Myoglobin 30.8 10.0-92.0 NG/ML Troponin I < 0.028 <0.028 NG/ML B-Type Natriuretic Peptide 11.1 <100.0 PG/ML Total Protein 7.4 6.4-8.2 GM/DL Albumin 4.2 3.2-4.5 GM/DL My Orders Orders - DANAY SUAZO APRN Cbc With Automated Diff (06/12/21 14:41) Magnesium (06/12/21 14:41) Chest 1 View, Ap/Pa Only (06/12/21 14:41) Ekg Tracing (06/12/21 14:41) Comprehensive Metabolic Panel (06/12/21 14:41) Myoglobin Serum (06/12/21 14:41) Protime With Inr (06/12/21 14:41) Partial Thromboplastin Time (06/12/21 14:41) O2 (06/12/21 14:41) Monitor-Rhythm Ecg Trace Only (06/12/21 14:41) Lipid Panel (06/13/21 06:00) Ed Iv/Invasive Line Start (06/12/21 14:41) BNP (06/12/21 14:41) Fibrin Degradation Products (06/12/21 14:41) Troponin I (06/12/21 14:41) Vital Signs/I&O 06/12/21 06/12/21 14:34 14:34 Temp 36.7 Pulse 100 Resp 20 B/P (MAP) 113/100 (104) Pulse Ox 97 O2 Delivery Room Air Room Air Capillary Refill : Departure Communication (Admissions) EKG at 1441 shows sinus rhythm rate of [address] segment changes 1618-at this time she states that she is feeling better without any pain. I discussed with her the negative troponin. I also discussed with her the need to repeat a troponin in a couple of hours to ensure that it was not just too early resulting in a negative test initially. She states that she feels well and wants to go on home. I discussed with her the risks of not doing a repeat troponin could include an undiagnosed heart attack. However she agrees to sign a refusal of services form and insists that she wants to go on home and will fo llow up with her yard cleaner in a few days. Impression Primary Impression: Chest pain Qualified Codes: R07.9 - Chest pain, unspecified Disposition: HOME, SELF-CARE Condition: Stable Departure-Patient Inst. Decision time for Depature: 16:19 Referrals: REBECCA FRIEDMAN MD (PCP/Family) Primary Care Physician Patient Instructions: Chest Pain (DC) Add. Discharge Instructions: 1. Return to ER for any concerns. Follow-up with your doctor next week. Copy Copies To 1: BART MIRELES MD, PETER J APRN Jun 12, 2021 14:44
[2021-06-12 14:53] LABS: BASOPHILS % (AUTO) 1 % (0-10); EOSINOPHILS # (AUTO) 0.1 10^3/uL (0.0-0.3); EOSINOPHILS % (AUTO) 1 % (0-10); HEMATOCRIT 38 % (35-52); HEMOGLOBIN 12.8 g/dL (11.5-16.0); LYMPHOCYTES % (AUTO) 36 % (12-44); MEAN CORPUSCULAR HEMOGLOBIN 33 pg (25-34); MEAN CORPUSCULAR HGB CONC 34 g/dL (32-36); MEAN CORPUSCULAR VOLUME 97 fL (80-99); MONOCYTES # (AUTO) 0.7 10^3/uL (0.0-1.0); MONOCYTES % (AUTO) 8 % (0-12); NEUTROPHILS # (AUTO) 4.6 10^3/uL (1.8-7.8); NEUTROPHILS % (AUTO) 54 % (42-75); PLATELET COUNT 261 10^3/uL (130-400); WHITE BLOOD COUNT 8.4 10^3/uL (4.3-11.0)
[2021-06-12 15:05] LABS: ALBUMIN 4.2 GM/DL (3.2-4.5); POTASSIUM 3.8 MMOL/L (3.6-5.0)
[2021-06-12 15:07] LABS: CALCIUM 9.3 MG/DL (8.5-10.1)
[2021-06-12 15:08] LABS: TOTAL PROTEIN 7.4 GM/DL (6.4-8.2)
[2021-06-12 15:10] LABS: BILIRUBIN,TOTAL 0.5 MG/DL (0.1-1.0)
[2021-06-12 15:11] LABS: CREATININE SERUM 0.72 MG/DL (0.60-1.30)
[2021-06-12 15:12] LABS: INR 0.9 (0.8-1.4)
[2021-06-12 15:14] LABS: MAGNESIUM 2.2 MG/DL (1.6-2.4)
--- NOTE | 2021-06-12 15:30 | Diagnostic Imaging Report ---
INDICATION: Chest pain. EXAMINATION: Portable chest at 02:56 p.m. FINDINGS: Heart size and pulmonary vascularity are normal. Lungs are clear. There are no effusions or pneumothoraces. IMPRESSION: Negative chest. Dictated by: Dictated on workstation # [id number]
[2021-06-12 15:57] LABS: PROTHROMBIN TIME PATIENT 12.3 SEC (12.2-14.7)
== END 2021-06-12 16:34 | disposition home or self-care (01) ==
LOC: EDUNIT# 14:28 → ER 14:33
DX: R07.9 Chest pain, unspecified (principal); I10 Essential (primary) hypertension; G89.29 Other chronic pain; M54.9 Dorsalgia, unspecified; G43.909 Migraine, unspecified, not intractable, without status migrainosus; F17.210 Nicotine dependence, cigarettes, uncomplicated; Z95.5 Presence of coronary angioplasty implant and graft; Z79.891 Long term (current) use of opiate analgesic; Z79.899 Other long term (current) drug therapy
CPT/HCPCS: 36415; 71045; 80053; 83735; 83874; 83880; 84484; 85025; 85379; 85610; 85730; 93005; 93041